=== PATIENT | female | born 1940 | race Caucasian/White ===

== ENCOUNTER → 2017-04-18 09:22 | Outpatient (CLI) | payer OTHER, SELFPAY ==
--- NOTE | 2017-04-18 09:26 | HPBD_ITS ---
STUDY: DUAL ENERGY X-RAY ABSORPTIOMETRY / DXA REASON FOR EXAM: Female, 76 years old. The patient is postmenopausal. Loss of height of 2 inches. TECHNIQUE: Bone Mineral Density (BMD) measurements of lumbar spine and bilateral hips were obtained. COMPARISON: Comparison is made with prior study dated April 14, 2015. FINDINGS: Lumbar Spine (L1-L4): g/cm2 (1.131) / T-score (-0.6) / Z-score (1.2) Findings are suggestive of normal bone density with a low fracture risk. Left Femur Total: g/cm2 (0.764) / T-score (-1.9) / Z-score (-0.2) Left Femoral Neck: g/cm2 (0.738) / T-score (-2.2) / Z-score (-0.2) Right Femur Total: g/cm2 (0.731) / T-score (-2.2) / Z-score (-0.4) Right Femoral Neck: g/cm2 (0.711) / T-score (-2.4) / Z-score (-0.4) The T-Scores on the most recent prior examination were: Lumbar Spine (L1-L4): There has been improvement of bone density since the previous examination. Left Femur Total: which represents an improvement of 0.5%. Right Femur Total: which represents an improvement of 3.0%. HPBD/Dexa Bone Density Study (HP) IMPRESSION: The patient is considered osteopenic as outlined below according to World Eduardo Organization (WHO) criteria with a moderate fracture risk. There has been improvement of bone density since the previous examination. Reference Information: The T-score is the number of standard deviations above or below the standard which is normal for young adults at their peak bone mineral density. The World Health Organization (WHO) interprets the T-scores as follows: Above -1 Normal bone density Between -1 and -2.5 Osteopenia Equal to / or below -2.5 Osteoporosis As a practical clinical guideline, osteopenia may be graded as follows: Mild -1 through -1.5 Moderate -1.6 through -2.0 Severe -2.1 through -2.4 The Z-score is the number of standard deviations above or below age-matched controls. A Z-score of less than -1.5 would be considered abnormal. References: 1. NIH Osteoporosis and Related Bone Diseases http://www.osteo.org 2. International Society for Clinical Densitometry http://www.iscd.org 3. National Osteoporosis Foundation http://www.nof.org Electronically Signed: Sean Mckeon MD at 10:59 EST Tel [phone], Service support ,
== END ==
PROVIDERS: Family Provider Family Medicine; PCP Family Medicine; Visit Provider Internal Medicine Endocrinology, Diabetes & Metabolism
DX: M81.0 Age-related osteoporosis without current pathological fracture (principal)
CPT/HCPCS: 77080

== ENCOUNTER → 2017-08-14 12:38 | Outpatient (CLI) | payer OTHER, SELFPAY ==
[2017-08-14 17:04] LABS: AST(SGOT) 19 U/L (15-37); Alanine Aminotransfer ALT/SGPT 22 U/L (13-56); Anion Gap 8 (5-15); BUN 17 mg/dL (7-18); BUN/Creat Ratio 22.7 RATIO (10-20); Calcium,Total 8.7 mg/dL (8.5-10.1); Chloride 105 mmol/L (98-107); Cholesterol 190 mg/dL (200); Creatinine, Serum 0.75 mg/dL (0.55-1.02); EST Glomerular Filtration Rate 80 mL/min (>60); Est Glom Filt Rate - Afr Amer 97 mL/min (>60); Glucose 81 mg/dL (74-106); High Density Lipoprotein 55 mg/dL; Potassium 3.8 mmol/L (3.5-5.1); Sodium Level 144 mmol/L (136-145); Triglycerides 144 mg/dL; Very Low Density Lipoprotein 29 mg/dL (5-40)
== END ==
PROVIDERS: Family Provider Family Medicine; PCP Family Medicine; Visit Provider Family Medicine
DX: I10 Essential (primary) hypertension (principal); E78.5 Hyperlipidemia, unspecified
CPT/HCPCS: 36415; 80048; 80061; 84450; 84460

== ENCOUNTER → 2017-08-21 11:17 | Outpatient (CLI) | payer OTHER, SELFPAY ==
[2017-08-21 11:59] LABS: Albumin, Serum 3.7 g/dL (3.2-5.0); BUN 13 mg/dL (7-18); BUN/Creat Ratio 16.7 RATIO (10-20); Chloride 102 mmol/L (98-107); Creatinine, Serum 0.78 mg/dL (0.55-1.02); EST Glomerular Filtration Rate 77 mL/min (>60); Est Glom Filt Rate - Afr Amer 93 mL/min (>60); Glucose 87 mg/dL (74-106); Magnesium 1.9 mg/dL (1.6-2.6); Phosphorus 3.4 mg/dL (2.5-4.9); Potassium 3.7 mmol/L (3.5-5.1); Sodium Level 141 mmol/L (136-145)
== END ==
PROVIDERS: Family Provider Family Medicine; PCP Family Medicine; Visit Provider Internal Medicine Endocrinology, Diabetes & Metabolism
DX: M81.0 Age-related osteoporosis without current pathological fracture (principal); E55.9 Vitamin D deficiency, unspecified; I10 Essential (primary) hypertension; Z79.899 Other long term (current) drug therapy
CPT/HCPCS: 36415; 80069; 83735

== ENCOUNTER → 2017-08-22 10:00 | Outpatient (CLI) | payer OTHER, SELFPAY ==
--- NOTE | 2017-08-22 15:50 | RAD_ITS ---
STUDY: X-RAY - LEFT FOOT CLINICAL: Female, 76 years old. Medial foot pain for 5 days after twisting foot. TECHNIQUE: 3 view(s) of the foot. COMPARISON: August 14, 2014 FINDINGS: There is a plantar calcaneal spur. Normal talus and tarsal bones. Has mild arthrosis of the visualized subtalar, talonavicular, calcaneocuboid, tarsal and tarsometatarsal articulations. There is deformity of the distal aspect of the first metatarsal suggesting prior bunionectomy and osteotomy. Normal second through fifth metatarsals. There is a mild hallux valgus deformity and degenerative changes of the first metatarsal phalangeal joint Normal tibial and fibular sesamoid bones. Normal interphalangeal joint of the great toe. Normal phalanges of the great toe. Normal second through fifth metatarsophalangeal joints. Normal interphalangeal joints and phalanges of the lesser toes. The soft tissue structures are unremarkable. RAD/Foot min 3 Views IMPRESSION: 1. No visualized acute fracture or dislocation. 2. Degenerative changes of the hindfoot. 3. Questionable surgical changes of the first metatarsal. 4. There is no major interval change when compared the prior study. Electronically Signed: Masood Craig DO at 16:24 EDT Tel [phone], Service support ,
== END ==
LOC: HPRAD 08-31 16:18
PROVIDERS: Family Provider Family Medicine; PCP Family Medicine; Visit Provider Physician Assistant Surgical
DX: S96.912A Strain of unspecified muscle and tendon at ankle and foot level, left foot, initial encounter (principal)
CPT/HCPCS: 73630

== ENCOUNTER → 2018-02-08 13:41 | Outpatient (CLI) | payer OTHER, SELFPAY ==
[2018-01-30 09:09] VITALS: BMI 28.1
--- NOTE | 2018-02-08 13:42 | RAD_ITS ---
STUDY: X-RAY - RIGHT KNEE REASON FOR EXAM: Female, 77 years old. Knee pain. TECHNIQUE: 4 view(s) of the knee. COMPARISON: January 15, 2016 FINDINGS: There is generalized osteopenia unchanged. Normal visualized distal femur. Normal visualized proximal tibia and fibula. Normal proximal tibiofibular articulation. There is stable moderate arthrosis of the medial and patellofemoral compartments. There is stable severe arthrosis of the lateral compartment. The soft tissue structures are unremarkable. RAD/Knee 4 or More Views IMPRESSION: Stable osteopenia and tricompartmental arthrosis. Electronically Signed: Oswaldo Hernandez MD at 17:18 EST , Service support ,
== END ==
PROVIDERS: Family Provider Family Medicine; PCP Family Medicine; Referring Provider Orthopaedic Surgery; Visit Provider Orthopaedic Surgery
DX: M25.561 Pain in right knee (principal)
CPT/HCPCS: 73564

== ENCOUNTER → 2018-02-17 08:34 | Outpatient (CLI) | payer OTHER, SELFPAY ==
[2018-02-09 12:05] VITALS: BMI 28.1
[2018-02-17 10:13] LABS: Albumin, Serum 3.2 g/dL (3.2-5.0); BUN 16 mg/dL (7-18); BUN/Creat Ratio 20.7 RATIO (10-20); Calcium,Total 8.5 mg/dL (8.5-10.1); Chloride 104 mmol/L (98-107); Creatinine, Serum 0.77 mg/dL (0.55-1.02); EST Glomerular Filtration Rate 77 mL/min (>60); Est Glom Filt Rate - Afr Amer 93 mL/min (>60); Glucose 88 mg/dL (74-106); Phosphorus 3.1 mg/dL (2.5-4.9); Potassium 3.6 mmol/L (3.5-5.1); Sodium Level 142 mmol/L (136-145)
== END ==
PROVIDERS: Family Provider Family Medicine; PCP Family Medicine; Referring Provider Internal Medicine Endocrinology, Diabetes & Metabolism; Visit Provider Internal Medicine Endocrinology, Diabetes & Metabolism
DX: M81.0 Age-related osteoporosis without current pathological fracture (principal); E55.9 Vitamin D deficiency, unspecified; I10 Essential (primary) hypertension; Z79.899 Other long term (current) drug therapy
CPT/HCPCS: 36415; 80069

== ENCOUNTER 2018-02-21 06:30 | Day surgery (SDC) | payer OTHER, SELFPAY ==
[2018-01-30 09:09] VITALS: BMI 28.1
[2018-02-09 12:05] VITALS: BMI 28.1
[2018-02-21] VITALS (12 sets, daily range): BP systolic 91–138; BP diastolic 49–87; PULSE 62–81; RESP 16–18; TEMP 36.4–36.9; O2SAT 92–100; BMI 27.0
--- NOTE | 2018-02-21 07:30 | COLBX_PTH ---
PATIENT: JERMAIN JENKINS LOC: EN U#:[id number] AGE/SX: 77/F ROOM: RE02/21/[address]: Dr. Bro Patiño MD : 1940 BED: DIS: 02/21/2018 SPEC #: [id number] RECD: 02/21/18 10:34 STATUS: KEENAN CAMMIE #: [id number] TAN: 02/21/18 07:[address]: Bro Patiño DEPT: SURGICAL PATHOLOGY RECD BY: Richie Ruggiero ENTERED: 02/21/18 10:34 SP TYPE: COLON BX OTHR DR: Dr. Blanca Cruz MD Tissues: COLON BIOPSY Procedures: Surgery Specimen Level IV HEADER OPERATION: Colonoscopy PRE-OP DIAGNOSIS: Screening TISSUE SUBMITTED: Random colonic biopsy MICROSCOPIC DIAGNOSIS Colon, random biopsy: Fragments of colonic mucosa, no pathologic diagnosis. SJ:adriana 02/22/18 MICROSCOPIC DESCRIPTION Slides are reviewed. GROSS DESCRIPTION Received in fixative is one container labeled with the patient's name and designated random colon biopsy. The specimen consists of multiple irregular fragments of light crook soft tissue that in aggregate measure 1 x 0.5 x 0.1 cm. The specimen is totally submitted in one cassette. / SJ:adriana 02/21/18 TC:4 CPT: 89239
--- NOTE | 2018-02-21 08:02 | OP.ENDO_ITS ---
Patient Name: Mary Liu Procedure Date: 02/21/2018 7:26 AM Date of : 1940 Age: 77 Procedure: Colonoscopy Indications: Screening for colorectal malignant neoplasm Providers: Bro Patiño MD Referring MD: Bro Patiño MD Medicines: See the Anesthesia note for documentation of the administered medications Patient Profile: This is a 77 year old female. Refer to note in patient chart for documentation of history and physical. Last Colonoscopy: more than 10 years ago. Complications: No immediate complications. Procedure: Pre-Anesthesia Assessment: - Prior to the procedure, a History and Physical was performed, and patient medications and allergies were reviewed. The patient's tolerance of previous anesthesia was also reviewed. The risks and benefits of the procedure and the sedation options and risks were discussed with the patient. All questions were answered, and informed consent was obtained. Prior Anticoagulants: The patient has taken no previous anticoagulant or antiplatelet agents. ASA Grade Assessment: II - A patient with mild systemic disease. After reviewing the risks and benefits, the patient was deemed in satisfactory condition to undergo the procedure. After I obtained informed consent, the scope was passed under direct vision. Throughout the procedure, the patient's blood pressure, pulse, and oxygen saturations were monitored continuously. The adult colonoscope was introduced through the anus and advanced to the cecum, identified by appendiceal orifice and ileocecal valve. The colonoscopy was performed with moderate difficulty due to a tortuous colon. The patient tolerated the procedure well. The quality of the bowel preparation was good. Scope In: 7:39:13 AM Scope Withdrawal Time 0 hours 6 minutes 34 seconds Scope Out: 7:59:07 AM Total Procedure Duration Time 0 hours 19 minutes 54 seconds Findings: A few small-mouthed diverticula were found in the sigmoid colon and descending colon. Non-bleeding internal hemorrhoids were found during retroflexion. The hemorrhoids were mild and small. The exam was otherwise without abnormality. Biopsies for histology were taken with a cold forceps from the entire colon for evaluation of microscopic colitis. Impression: - Diverticulosis in the sigmoid colon and in the descending colon. - Non-bleeding internal hemorrhoids. - The examination was otherwise normal. - Biopsies were taken with a cold forceps from the entire colon for evaluation of microscopic colitis. Recommendation: - Discharge patient to home. - Resume previous diet. - Continue present medications. - Await pathology results. - Repeat colonoscopy in 10 years for screening purposes. - Return to my office in 1 week. Procedure Code(s): --- Professional --- 99570, Colonoscopy, flexible; with biopsy, single or multiple Diagnosis Code(s): --- Professional --- Z12.11, Encounter for screening for malignant neoplasm of colon K64.8, Other hemorrhoids K57.30, Diverticulosis of large intestine without perforation or abscess without bleeding CPT copyright 2017 [employer]. All rights reserved. The codes documented in this report are preliminary and upon senior cyber intelligence analyst review may be revised to meet current compliance requirements. MD Bro Choudhary MD 02/21/2018 8:02:26 AM This report has been signed electronically. Number of Addenda: 0 Note Initiated On: 02/21/2018 7:26 AM
--- NOTE | 2018-02-21 08:20 | SUR.PHASEI ---
FREQUENT COUGH, LUNGS CLEAR, DIFFICULTY MAINTAINING SPO2 >92% ON ROOM AIR. VERIFIED PLACEMENT OF SPO2 MONITOR. O2 PLACED AT 2 L/MIN, ENCOURAGE C & DB. WILL UPDATE ANESTHESIA.
--- NOTE | 2018-02-21 08:44 | SUR.PHASEI ---
AT 0837, DR OBRIEN NOTIFIED CONTINUES MOIST-SOUNDING COUGH, LUNGS COURSE ON LEFT POSTERIORLY, CLEAR ANTERIOR. O2 REMAINS AT 2-3 L/MIN. DENIES CHEST PAIN, DIFFICULTY BREATHING, OR SHORT OF BREATH. et CO2 IMPROVING, NOW AT 25. DR OBRIEN WILL COME TO PACU TO EVALUATE.
--- NOTE | 2018-02-27 08:57 | PCM.HP.STD ---
Problem List (1) Screening for colorectal cancer Status: Acute History of Present Illness Date of Admission: 02/21/18 The patient is a 77 year old F who presents for screening colonoscopy. Past Medical History Past Medical History (Chronic Problems): Chronic Problems (Last Reviewed 01/30/18 @ 12:37 by Bro Patiño MD) Hyperlipidemia (Chronic) SVT (supraventricular tachycardia) (Chronic) Essential hypertension (Chronic) Medical History: Medical History (Last Reviewed 02/27/18 @ 08:58 by Bro Patiño MD) Degenerative arthritis of left foot (Acute) M19.072 Strain of foot, left (Acute) S96.912A Hyperlipidemia (Chronic) E78.5 SVT (supraventricular tachycardia) (Chronic) I47.1 Essential hypertension (Chronic) I10 Asthma J45.909 Thyroid disease E07.9 Allergies Iodinated Contrast- Oral and IV Dye [Iodinated Contrast Media - IV Dye] Allergy (Verified 02/19/18 11:27) Anaphylaxis TONGUE SWELLS Penicillins [PCN] Allergy (Verified 02/19/18 11:27) Hives AND TONGUE SWELLS Home Medications: Ambulatory Orders Medication Instructions Recorded Atorvastatin Calcium [Lipitor] 10 mg PO QHS 01/31/15 Sertraline HCl [Zoloft] 150 mg PO DAILY 01/31/15 Calcium Carbonate/Vitamin D3 600 mg PO TID 07/28/15 [Calcium 600-Vit D3 400 Caplet] Cholecalciferol (VIT D3) [Vitamin 2,000 unit PO DAILY 07/28/15 D3] Multivitamins,Ther W-Minerals 1 tab PO DAILY 07/28/15 [Multivitamin With Minerals] Hydrochlorothiazide 12.5 mg PO DAILY 12/22/16 metoprolol succinate ER 100 mg 100 mg PO DAILY #90 tab 06/12/17 tablet,extended release 24 hr flecainide 100 mg tablet 100 mg PO Q12H #180 tab 06/27/17 lisinopril 10 mg tablet 10 mg PO DAILY #90 tab 06/27/17 magnesium 250 mg tablet 400 mg PO DAILY tab 01/30/18 potassium chloride ER 10 mEq 20 meq PO DAILY tab 01/30/18 tablet,extended release(part/cryst) Surgical History: Surgical History (Last Reviewed 02/27/18 @ 08:58 by Bro Patiño MD) Hx of cholecystectomy (Resolved) Z90.49 Hx of cataract surgery (Resolved) Z98.49 Smoking Status: Never smoker Tobacco Use: Non-smoker Review of Systems Cardiovascular: Denies: Chest Pain, Chest Pressure, Chest Tightness, Palpitations Respiratory: Denies: Cough, Hemoptysis, Shortness of breath at rest, Shortness of breath upon exertion, Wheezing Gastrointestinal: Denies: Abdominal Pain, Constipation, Diarrhea, Hematemesis, Nausea, Melena, Vomiting VTE Information - Inpt Only VTE Present on Admission: No VTE Mechan Device Prophylaxis: None VTE Pharm Prophylaxis ordered?: No Reason prophylaxis not ordered:: Treatment Not Indicated - Physical Exam Lungs: Clear to auscultation Cardiovascular: Regular rate, Regular Rhythm, No murmurs Abdomen: Bowel Sounds Present, Soft, Non Tender, Non-Distended Vital Signs Temp Pulse Resp BP Pulse Ox 97.6 F L 63 16 116/49 L 93 02/21/18 09:22 02/21/18 09:22 02/21/18 09:22 02/21/18 09:22 02/21/18 09:22 Oxygen Flow Rate (L/min) 1 Oxygen Delivery Method Room Air Weight: 145 lb 8.081 oz Body Mass Index (BMI) 27.0 Assessment/Plan All Active Problems (Last Reviewed 01/30/18 @ 12:37 by Bro Patiño MD) Screening for colorectal cancer (Acute) Degenerative arthritis of left foot (Acute) Strain of foot, left (Acute) Hx of cholecystectomy (Resolved) Hx of cataract surgery (Resolved) My plan is to perform a colonoscopy on her. Risk benefits have been reviewed all questions asked of been answered and the patient agrees to proceed.
== END 2018-02-21 09:54 | disposition home or self-care (01) ==
LOC: EN 06:31 → AC 06:32
PROVIDERS: Family Provider Family Medicine; PCP Family Medicine; Referring Provider Family Medicine; Visit Provider Surgery
PROC: 0DJD8ZZ Inspection of Lower Intestinal Tract, Via Natural or Artificial Opening Endoscopic (ICD-10-PCS; CPT 45378; principal; 2018-02-21 07:25)
DX: Z12.11 Encounter for screening for malignant neoplasm of colon (principal); K57.30 Diverticulosis of large intestine without perforation or abscess without bleeding; K64.8 Other hemorrhoids; E78.00 Pure hypercholesterolemia, unspecified; I47.1 Supraventricular tachycardia; I10 Essential (primary) hypertension; M19.072 Primary osteoarthritis, left ankle and foot; J45.909 Unspecified asthma, uncomplicated; F32.9 Major depressive disorder, single episode, unspecified; Z78.0 Asymptomatic menopausal state; Z90.49 Acquired absence of other specified parts of digestive tract; Z79.899 Other long term (current) drug therapy
CPT/HCPCS: 45380; 88305; J7120; J1610; J2405

== ENCOUNTER → 2018-04-25 08:07 | Outpatient (CLI) | payer OTHER, SELFPAY ==
[2018-02-21 06:50] VITALS: BMI 27.0
[2018-03-29 10:48] VITALS: BMI 27.8
--- NOTE | 2018-04-25 08:11 | BI_ITS ---
MAMMOGRAPHY - BILATERAL SCREENING REASON FOR EXAM: Female, 77 years old. Routine annual screening examination. PERTINENT HISTORY: Remote left excisional breast biopsy. TECHNIQUE: Digital bilateral breast mikie (3D mammographic acquisition) in the CC and MLO projections. 2-D mediolateral oblique (MLO) and craniocaudad (CC) views of both breasts were obtained. CAD: Full Field Digital Mammography with Computer Added Detection was performed. COMPARISON: Comparison is made with prior study dated October 31, 2016 and September 11, 2015. FINDINGS: Breast Composition: There are scattered areas of fibroglandular density. There are no dominant masses or suspicious calcifications. Stable small bilateral axillary lymph nodes. No other significant abnormalities are identified. There has been no significant change since the prior study. BI/SCREEN MAMM (CAD) W/MIKIE BILAT IMPRESSION: Stable bilateral screening mammogram. Yearly follow-up mammogram recommended. (A) ASSESSMENT CATEGORY: BIRADS Category 2: Benign. A letter regarding these results will be sent to the patient by the facility within 30 days. Approximately 10% of breast cancers are not detected by mammography. A normal mammogram should not delay biopsy of a clinically suspicious abnormality. [id number] Electronically Signed: Sean Mckeon, at 10:37 EDT , Service support ,
--- NOTE | 2018-04-25 08:11 | BI_ITS ---
MAMMOGRAPHY - BILATERAL SCREENING REASON FOR EXAM: Female, 77 years old. Routine annual screening examination. PERTINENT HISTORY: Remote left excisional breast biopsy. TECHNIQUE: Digital bilateral breast markel (3D mammographic acquisition) in the CC and MLO projections. 2-D mediolateral oblique (MLO) and craniocaudad (CC) views of both breasts were obtained. CAD: Full Field Digital Mammography with Computer Added Detection was performed. COMPARISON: Comparison is made with prior study dated October 31, 2016 and September 11, 2015. FINDINGS: Breast Composition: There are scattered areas of fibroglandular density. There are no dominant masses or suspicious calcifications. Stable small bilateral axillary lymph nodes. No other significant abnormalities are identified. There has been no significant change since the prior study. BI/Bilat Brst Screen Markel Add-On IMPRESSION: Stable bilateral screening mammogram. Yearly follow-up mammogram recommended. (A) ASSESSMENT CATEGORY: BIRADS Category 2: Benign. A letter regarding these results will be sent to the patient by the facility within 30 days. Approximately 10% of breast cancers are not detected by mammography. A normal mammogram should not delay biopsy of a clinically suspicious abnormality. [id number] Electronically Signed: Sean Mckeon, at 10:37 EDT , Service support ,
== END ==
PROVIDERS: Family Provider Family Medicine; PCP Family Medicine; Referring Provider Family Medicine; Visit Provider Family Medicine
DX: Z12.31 Encounter for screening mammogram for malignant neoplasm of breast (principal)
CPT/HCPCS: 77063; 77067

== ENCOUNTER 2018-05-16 09:27 | Emergency (ER) | payer OTHER, SELFPAY ==
[2018-03-29 10:48] VITALS: BMI 27.8
[2018-05-16 09:28] VITALS: BP 152/93; PULSE 67; RESP 17; TEMP 36.8; O2SAT 98; BMI 28.0
--- NOTE | 2018-05-16 09:48 | ED.VISSUMM ---
- ER Visit Summary Date of Service: 05/16/18 Chief Complaint: Fall History of Present Illness: The patient is a 77 F who fell last night. This was a mechanical fall down 3 steps. She landed on her right side and complains of right shoulder, right elbow, and right wrist pain. She also has a bruise to her right hip, but she is not having issues walking or bearing weight. She did not hit her head or neck. Did not lose consciousness. She is not on blood thinners. No other complaints. Physical Examination: Afebrile and vital signs unremarkable. Head and neck are atraumatic. Right shoulder diffusely tender to palpation. Right elbow tender to palpation over the medial epicondyle. Pain with pronation and supination. Right wrist diffusely tender to palpation. Hand unremarkable. Neurovascular intact distally. Skin intact. Test Results: X-rays of the right shoulder, right elbow, and right wrist are pending. Emergency Department Course and Treatment: Patient treated with Tylenol while awaiting imaging results. X-rays were negative for fracture. They showed some soft tissue swelling but nothing else acute. Just chronic degenerative changes. Patient will be treated as an outpatient with rest, ice, elevation. Velcro wrist splint. Outpatient follow-up for reevaluation. Treatment Plan: As above Disposition: Discharge Impression: 1. Right shoulder contusion 2. Right elbow contusion 3. Right wrist sprain This note was generated with [employer] software. It may contain incorrect words, spelling, and punctuation that were not noted in review of the chart prior to signing ED Disposition - Plan for ED Patient: Referrals: Blanca Cruz MD [Primary Care Provider] -
[2018-05-16 09:54] VITALS: O2SAT 97
--- NOTE | 2018-05-16 09:55 | RAD_ITS ---
STUDY: X-RAY - RIGHT WRIST REASON FOR EXAM: Female, 77 years old. Pain following a fall. TECHNIQUE: 3 view(s) of the wrist were obtained. COMPARISON: None. FINDINGS: Normal visualized distal radius and ulna. Normal radiocarpal articulation. Normal distal radioulnar articulation. Normal carpal bones. Normal carpal articulations. Normal carpometacarpal articulation of the thumb. Normal second through fifth carpometacarpal articulations. Normal visualized metacarpal bones. Soft tissue swelling. RAD/Wrist min 3 Views IMPRESSION: Soft tissue swelling. Electronically Signed: Sean Mckeon, at 10:36 EDT , Service support ,
--- NOTE | 2018-05-16 10:03 | RAD_ITS ---
STUDY: X-RAY - RIGHT ELBOW REASON FOR EXAM: Female, 77 years old. Pain following a fall. TECHNIQUE: 3 view(s) of the elbow. COMPARISON: None. FINDINGS: Normal visualized humerus, radius and ulna. Normal radiocapitellar and ulnotrochlear articulations. The soft tissue structures are unremarkable. RAD/Elbow min 3 Views IMPRESSION: Normal x-ray examination of the elbow. Electronically Signed: Sean Mckeon, at 10:36 EDT , Service support ,
--- NOTE | 2018-05-16 10:13 | RAD_ITS ---
STUDY: X-RAY - RIGHT SHOULDER REASON FOR EXAM: Female, 77 years old. Pain following a fall. TECHNIQUE: 4 view(s) of the shoulder. COMPARISON: None. FINDINGS: There is moderate degenerative arthrosis of the glenohumeral articulation. There is degenerative arthrosis of the acromioclavicular joint without inferior osseous spur formation. Normal acromion. Normal humeral head and visualized proximal humerus. The soft tissue structures are unremarkable. Normal visualized pulmonary apex. RAD/Shoulder min 2 Views IMPRESSION: Degenerative changes of the acromioclavicular joint and glenohumeral joint. Electronically Signed: Sean Mckeon, at 11:01 EDT , Service support ,
[2018-05-16] MEDS: Acetaminophen 500 MG Tablet 1000 MG PO (10:32)
--- NOTE | 2018-05-16 11:05 | ED.DEP ---
ED Disposition - Plan for ED Patient: Instructions: ED Mechanical Fall Referrals: Blanca Cruz MD [Primary Care Provider] -
[2018-05-16 11:19] VITALS: BP 114/67; PULSE 59; RESP 16; O2SAT 96
== END 2018-05-16 11:20 | disposition home or self-care (01) ==
LOC: ED 09:50
PROVIDERS: Emergency Provider Emergency Medicine; Family Provider Family Medicine; PCP Family Medicine
DX: S40.011A Contusion of right shoulder, initial encounter (principal); S50.01XA Contusion of right elbow, initial encounter; S63.501A Unspecified sprain of right wrist, initial encounter; W10.9XXA Fall (on) (from) unspecified stairs and steps, initial encounter; Y93.9 Activity, unspecified; Y92.9 Unspecified place or not applicable; I10 Essential (primary) hypertension; E07.9 Disorder of thyroid, unspecified; Z79.899 Other long term (current) drug therapy
CPT/HCPCS: 73030; 73080; 73110; 99283

== ENCOUNTER → 2018-05-21 09:01 | Outpatient (CLI) | payer OTHER, SELFPAY ==
[2018-05-21 08:55] VITALS: BMI 28.0
--- NOTE | 2018-05-21 09:02 | RAD_ITS ---
HISTORY: Pain. COMPARISON: 05/16/18 radiographs. FINDINGS: XR Shoulder 1 View: Right SOFT TISSUES: No acute findings. No radiopaque foreign body. BONES/JOINTS: No acute fracture or subluxation. Normal alignment. Moderate degenerative changes glenohumeral and acromioclavicular joints similar to prior. No destructive changes observed. RAD/Shoulder One View IMPRESSION: Degenerative changes. No acute fracture or dislocation. at 0454 Reported and signed by: Marcellus Bolaños MD Electronically Signed: Marcellus Bolaños, at 4:53 EDT Tel , Service support ,
--- NOTE | 2018-05-21 09:02 | RAD_ITS ---
HISTORY: PPainRAD-EXT/JT COMPARISON: None FINDINGS: XR Hand Min 3 Views: Right SOFT TISSUES: No acute findings. No radiopaque foreign body. BONES/JOINTS: No acute fracture or subluxation. Normal alignment. Degenerative changes are noted. No destructive changes observed. RAD/Hand Min 3 Views IMPRESSION: Degenerative changes. No acute fracture or dislocation. at 0112 Reported and signed by: Marcellus Bolaños MD Electronically Signed: Marcellus Bolaños, at 4:14 EDT Tel , Service support ,
== END ==
PROVIDERS: Family Provider Family Medicine; PCP Family Medicine; Referring Provider Orthopaedic Surgery; Visit Provider Orthopaedic Surgery
DX: M79.641 Pain in right hand (principal); M25.511 Pain in right shoulder
CPT/HCPCS: 73020; 73130

== ENCOUNTER → 2018-05-22 | Outpatient (CLI) | payer OTHER, SELFPAY ==
[2018-03-29 10:48] VITALS: BMI 27.8
[2018-05-21 08:55] VITALS: BMI 28.0
--- NOTE | 2018-05-22 09:27 | STE_ITS ---
Reason For Study: ATRIAL FIB/FLUTTER Stress Results Protocol: Stress Echocardiogram Maximum Predicted HR: 144 bpm Target HR: 122 bpm % Maximum Predicted HR: 85 % DurationHeart Rate Stage (mm:ss) (bpm) BP Comment BASELINE 66 158/82PT DID NOT TAKE MEDS MARGARET PROTOCOL- STAGE 1 3:00 110 146/80 MARGARET PROTOCOL- STAGE 2 1:32 123 / SOB, NO CP RECOVERY 70 150/80 Stress Duration: 4:32 mm:ss Maximum Stress HR: 123 bpm Baseline Echocardiogram Findings Stress Echo Wall motion Data Resting WM Intermediate WM Stress WM Resting Wall Motion Wall Motion Stress No regional wall motion No regional wall motion abnormalities noted. abnormalities noted. Ejection Fraction 55 %. Ejection Fraction 65 %. Interpretation Summary Exercise stress echo. Stress protocol: Resting EKG demonstrates normal sinus rhythm with a rate of 69 beats minute normal intervals are noted resting blood pressure 158/82 mmHg. The patient exercised according to the regular Margaret protocol for total duration of 4 minutes and 32 seconds. The maximum heart rate attained was 123 bpm which was 85% of maximum predicted heart rate the maximum workload was 7 metabolic equivalents. At rest there were no ST or T wave changes noted suggest ischemia peak exercise upsloping ST changes were noted with no meet the criteria for ischemia but then became horizontal of approximately 0.80-[address] depression noted in leads II, III and aVF and were persistent into recovery. The patient exhibited shortness of breath. The above findings appear to be suggestive but not diagnostic of ischemia at the resting blood pressure 158/82 mmHg with a peak blood pressure 168/90 mmHg. No obvious clinical angina was noted. Stress echocardiographic images. The resting echocardiographic images demonstrated preserved ejection fraction of 55%. The peak stress images demonstrate an ejection fraction of 65%. The inferior wall cannot be very well visualized and thus ischemia cannot be completely excluded. Conclusion Exercise stress echocardiogram with EKG criteria suggestive of ischemia Normal resting echocardiographic images with indeterminate stress echocardiographic images Ordering Physician: Chava Rodriguez Referring Physician: Chava Rodriguez Performed By:
== END | disposition home or self-care (01) ==
LOC: CVS 09:26
PROVIDERS: Family Provider Family Medicine; PCP Family Medicine; Referring Provider Internal Medicine Cardiovascular Disease; Visit Provider Internal Medicine Cardiovascular Disease
DX: I47.1 Supraventricular tachycardia (principal)
CPT/HCPCS: 93017; 93350

== ENCOUNTER 2018-06-05 00:40 | Emergency (ER) | payer OTHER, SELFPAY ==
[2018-05-21 08:55] VITALS: BMI 28.0
[2018-06-05 00:40] VITALS: BP 177/79; PULSE 65; RESP 16; TEMP 36.5; O2SAT 97; BMI 26.6
--- NOTE | 2018-06-05 01:17 | RAD_ITS ---
STUDY: X-RAY - RIGHT SHOULDER REASON FOR EXAM: Female, 77 years old. Pain TECHNIQUE: 4 view(s) of the shoulder. COMPARISON: None. FINDINGS: Normal glenohumeral articulation. There is degenerative arthrosis of the acromioclavicular joint without inferior osseous spur formation. Normal acromion. Normal humeral head and visualized proximal humerus. The soft tissue structures are unremarkable. Normal visualized pulmonary apex. RAD/Shoulder min 2 Views IMPRESSION: There are NO fractures or malalignments. There is mild degenerative arthrosis of the glenohumeral joint. Electronically Signed: Lonny Bales MD at 2:30 EDT , Service support ,
--- NOTE | 2018-06-05 01:33 | ED.VISSUMM ---
- ER Visit Summary Date of Service: 06/05/18 Chief Complaint: Right shoulder pain History of Present Illness: The patient is a 77 F presenting with right shoulder pain. She states this occurred on Monday. She was walking up a ramp at her new home and she tripped. She fell into a wall hitting her right shoulder. She did not hit her head or lose consciousness. She complains of persistent pain in her right shoulder. She is able ambulate. She denies other injuries. Physical Examination: Vitals are stable. Patient is afebrile. Alert no acute distress. HEENT exam is unremarkable. Neck is nontender Lungs are clear and equal bilaterally. Heart is regular rate and rhythm. Extremities mild diffuse tenderness right shoulder with active full range of motion, neurovascularly intact distally Skin is warm and dry. No focal neurologic deficit. Remainder of exam is unremarkable. Emergency Department Course and Treatment: Right shoulder x-ray shows there are NO fractures or malalignments. There is mild degenerative arthrosis of the glenohumeral joint. She is advised to take Tylenol for pain. Advised to follow-up with her primary care physician. Advised return to ED for worsening complaints. Disposition: Discharge home Impression: Right shoulder contusion This note was generated with HDmessaging dictation software. It may contain incorrect words, spelling, and punctuation that were not noted in review of the chart prior to signing ED Disposition - Plan for ED Patient: Referrals: Blanca Cruz MD [Primary Care Provider] -
--- NOTE | 2018-06-05 02:36 | ED.DEP ---
ED Disposition - Plan for ED Patient: Instructions: ED Sprain Shoulder Referrals: Blanca Cruz MD [Primary Care Provider] - Dora Hemphill DO [STAFF PHYSICIAN] -
[2018-06-05 02:39] VITALS: BP 179/62; PULSE 65; RESP 16; O2SAT 94
[2018-06-05] MEDS: Acetaminophen 325 MG Tablet 650 MG PO (02:39)
== END 2018-06-05 02:42 | disposition home or self-care (01) ==
LOC: ED 01:25
PROVIDERS: Emergency Provider Emergency Medicine; Family Provider Family Medicine; PCP Family Medicine
DX: S40.011A Contusion of right shoulder, initial encounter (principal); M19.011 Primary osteoarthritis, right shoulder; W01.0XXA Fall on same level from slipping, tripping and stumbling without subsequent striking against object, initial encounter; Y93.01 Activity, walking, marching and hiking; Y92.9 Unspecified place or not applicable; I10 Essential (primary) hypertension; E78.00 Pure hypercholesterolemia, unspecified; I47.1 Supraventricular tachycardia; Z79.82 Long term (current) use of aspirin; Z79.899 Other long term (current) drug therapy
CPT/HCPCS: 73030; 99283

== ENCOUNTER → 2018-06-20 | Outpatient (CLI) | payer OTHER, SELFPAY ==
[2018-06-06 09:47] VITALS: BMI 27.4
[2018-06-20 12:39] LABS: Basophil# 0.04 X10^3/uL; Basophil% 0.6 % (0-1); Eosinophil# 0.18 X10^3/uL; Eosinophils% 2.9 % (0-5); Hematocrit 36.9 % (37-47); Hemoglobin 11.7 g/dl (12.0-15.0); Immature Platelet Fraction 2.1 % (1.0-7.9); Lymphocyte % 22.4 % (19-41); Mean Corp Hgb Conc 31.7 g/gl (32-36); Mean Corpuscular Volume 85.2 fL (81-99); Mean Platelet Vol. 10.5 fl (6.2-12.0); Monocyte# 0.61 X10^3/uL; Monocyte% 9.8 % (0-10); Neutrophil # 4.01 X10^3/uL (2.7-7.7); Neutrophil % 64.1 % (47-70); Platelet Count 283 K/mm3 (150-450); RBC Distribution Width CV 15.4 % (11.6-14.6); RBC Distribution Width SD 47.7 fl (35.1-43.9); RET-HE 32.1 pg (30-35); Red Blood Count 4.33 M/mm3 (4.2-5.4); Reticulocyte Count 1.85 % (0.5-1.5); White Blood Count 6.3 K/mm3 (4.4-11.0)
[2018-06-20 12:47] LABS: POSITIVE COUNT NO; POSITIVE DIFFERENTIAL NO; POSITIVE MORPHOLOGY NO
[2018-06-20 12:59] LABS: Vitamin B12 757 pg/mL (211-911)
[2018-06-20 13:51] LABS: Anion Gap 4 (5-15); BUN 18 mg/dL (7-18); BUN/Creat Ratio 23.6 RATIO (10-20); Calcium,Total 8.9 mg/dL (8.5-10.1); Chloride 103 mmol/L (98-107); Creatinine, Serum 0.76 mg/dL (0.55-1.02); EST Glomerular Filtration Rate 78 mL/min (>60); Est Glom Filt Rate - Afr Amer 94 mL/min (>60); Glucose 90 mg/dL (74-106); Iron 39 ug/dL (50-170); Sodium Level 136 mmol/L (136-145)
== END | disposition home or self-care (01) ==
LOC: MFPLAB 09:47
PROVIDERS: Family Provider Family Medicine; PCP Family Medicine; Referring Provider Family Medicine; Visit Provider Family Medicine
DX: D64.9 Anemia, unspecified (principal); I10 Essential (primary) hypertension; R19.7 Diarrhea, unspecified
CPT/HCPCS: 36415; 80048; 82607; 82746; 83540; 85025; 85045

== ENCOUNTER 2018-06-25 08:43 | Day surgery (SDC) | payer OTHER, SELFPAY ==
[2018-05-21 08:55] VITALS: BMI 28.0
[2018-06-06 09:47] VITALS: BMI 27.4
--- NOTE | 2018-06-06 14:40 | HP_ITS ---
ADDENDUM by KYRA Lamas on 06/06/18 at 1440 Addendum entered and electronically signed by STACI Esqueda 06/06/18 14:40: HPI Surgical H&P: Yes Assessment & Plan 1. Abnormal stress echo R94.39 Plan - STACI Esqueda As noted above, her most recent stress echocardiogram on 06/01/2018 was considered to be abnormal. She will proceed with a left heart catheterization for further assessment. Patient results further recommendation will be made. She does have a allergy to iodine and will receive Benadryl and Solu-Medrol morning of heart catheterization. 2. SVT (supraventricular tachycardia) I47.1 Plan - STACI Esqueda Her EKG today in office showed sinus rhythm with ventricular ectopy. Her heart rate was noted to be 64 bpm and a QTC of 407. At this time, she will continue current medications we will continue to monitor. 3. Postoperative atrial fibrillation I97.89; I48.91 Plan - STACI Esqueda She appears to maintain regular rhythm. She will continue with current rate limiting medications. We will continue to monitor. Orders Orders: 12 Lead [place] [facility] 4. Essential (primary) hypertension I10 Plan - STACI Esqueda Patient's blood pressure is well-controlled. We will continue to monitor. We will not make any medication regimen changes. She does not knowledge a recent mechanical fall and was seen in the emergency department yesterday and noted to have elevated blood pressure. Her elevated blood pressure at this time is been attributed to discomfort at that time. 5. Pure hypercholesterolemia E78.00 Plan - STACI Esqueda She will continue with current low-dose statin medication. Plan Detail Other Medications New: clopidogrel 75 mg PO DAILY 30 tabs 11RF Additional Comments - STACI Esqueda Discussed the above patient with Dr. Rodriguez, he agrees with the plan of care. Thank you for allowing us to participate in the patients plan of care, if you have any questions please do not hesitate to call. This note was generated using a voice recognition system and there may be incorrect words, spelling or punctuation that were not noted when reviewing the office note prior to saving. 06/06/18 1440 <Electronically signed by Lamin SMALL> Date Lamin Lamas cc: Blanca Cruz MD ~* [facility] HPI Details: JERMAIN JENKINS, is a 77 F who presents to the office today for a follow- up visit. She has a history of hypertension, hyperlipidemia, and paroxysmal atrial tachycardia. She also has a history of parathyroid disease and had a parathyroidectomy. She recently underwent a colonoscopy developed brief episode of atrial fibrillation and went back into sinus rhythm. After last office appointment on 03/29/2018 she underwent a stress test to further evaluate underlying ischemia. Her stress echocardiogram was positive by EKG criteria. She denies chest, arm, jaw, or neck discomfort. Her exercise tolerance is stable. She denies symptoms of CHF, palpitations, lightheadedness, dizziness, near syncope, or syncopal episodes. She denies edema or claudication issues. She denies orthopnea, PND, fever, chills, blood in urine, blood in stool, myalgia, or unexplainable fatigue. Intake Vital Signs 06/06/18 Height 5 ft 2 in 06/06/18 Weight: 150 lb 06/06/18 Body Mass Index (BMI) 27.4 06/06/18 Blood Pressure 131/68 H 06/06/18 Blood Pressure Location Lt brachial 06/06/18 Blood Pressure Position Sitting 06/06/18 Respiratory Rate 18 06/06/18 Pulse Rate 64 06/06/18 Pulse Source Monitor 06/06/18 Pulse Ox 98 Intake Visit Reasons: update H&P cath 06/25 Material Spreader Required: No Accompanied by: none Is patient in pain?: No Allergies Iodinated Contrast- Oral and IV Dye [Iodinated Contrast Media - IV Dye] Allergy (Verified 06/05/18 00:42) Anaphylaxis Penicillins [PCN] Allergy (Verified 06/05/18 00:42) Hives Medications Atorvastatin Calcium [Lipitor] 10 mg PO QHS 01/31/15 [History Confirmed 03/29/18] Sertraline HCl [Zoloft] 150 mg PO DAILY 01/31/15 [History Confirmed 03/29/18] Calcium Carbonate/Vitamin D3 [Calcium 600-Vit D3 400 Caplet] 600 mg PO TID 07/28/15 [History Confirmed 03/29/18] Cholecalciferol (VIT D3) [Vitamin D3] 2,000 unit PO DAILY 07/28/15 [History Confirmed 03/29/18] Multivitamins,Ther W-Minerals [Multivitamin With Minerals] 1 tab PO DAILY 07/28/15 [History Confirmed 03/29/18] Hydrochlorothiazide 12.5 mg PO DAILY 12/22/16 [History Confirmed 03/29/18] metoprolol succinate ER 100 mg tablet,extended release 24 hr 100 mg PO DAILY #90 tab 06/12/17 [Rx Confirmed 03/29/18] flecainide 100 mg tablet 100 mg PO Q12H #180 tab 06/27/17 [Rx Confirmed 03/29/18] lisinopril 10 mg tablet 10 mg PO DAILY #90 tab 06/27/17 [Rx Confirmed 03/29/18] magnesium 250 mg tablet 400 mg PO DAILY tab 01/30/18 [History Confirmed 03/29/18] potassium chloride ER 10 mEq tablet,extended release(part/cryst) 20 meq PO DAILY tab 01/30/18 [History Confirmed 03/29/18] meloxicam 15 mg tablet 15 mg PO DAILY #30 tab 05/21/18 [Rx Confirmed 05/21/18] aspirin 81 mg tablet,delayed release 81 mg PO DAILY 05/24/18 [History] clopidogrel 75 mg tablet 75 mg PO DAILY #30 tab 06/06/18 [Rx Confirmed 06/06/18] PFSH Medical History Hyperlipidemia (Chronic) SVT (supraventricular tachycardia) (Chronic) Essential hypertension (Chronic) Asthma (Chronic) Degenerative arthritis of left foot (Chronic) Parathyroid disease (Resolved) Strain of foot, left (Resolved) Surgical History History of cataract surgery (Resolved) History of colonoscopy (Resolved 02/2018) History of parathyroidectomy (Resolved) Hx of cholecystectomy (Resolved) Hx of colonoscopy (Resolved) Family History Father CAD (coronary artery disease) Mother No problems noted. Social History Smoking Status: Never smoker alcohol intake: never substance use type: does not use caffeine: No what type of physical activity do you participate in: none ROS Const Const: Negative for fatigue, weakness, body ache, fever(s) or chills ENT ENT: Negative for dizziness Cardio Chest Pain: No Palpitations: No Edema: None Muscle aches with walking: None Resp Respiratory: Negative for SOB with activity, SOB at rest, SOB orthopnea\SOB lying down or paroxysmal nocturnal dyspnea GI GI: Negative nausea, vomiting blood/hematemesis, bright, red blood in stools or black,tarry stools : Negative for hematuria or frequent nighttime urination/ nocturia Musc Musc: Negative for muscle aches/ myalgia Skin Skin: Negative non-healing lesions or rash Neuro Neuro: Negative for dizziness, lightheadedness, near syncope, syncope, orthostatic symptoms or weakness Endo Endo: Negative for fatigue Allergy Allergy/Immunology: Negative for rash Cardiology Exam Const Appearance: cooperative, healthy appearing, comfortable and no acute distress Nutritional Appearance: well nourished and overweight Orientation: alert, awake and oriented x3 Head Head: normal to inspection Ears: hearing grossly normal bilaterally Nose: external nose normal Face and Sinus: face symmetric Mouth: oral mucosae normal Eyes General: appearance normal, both eyes and all related structures Eyelids: eyelids normal EOM: EOM intact bilaterally Neck Neck: normal visual inspection and no JVD Carotids: normal carotid upstroke Chest Chest inspection: normal inspection of the chest, symmetric chest movement and normal respiratory effort; negative cough Auscultation: Bilateral: Clear to Auscultation Cardio Rate: regular rate Rhythm: regular rhythm Heart sounds: S1 normal and S2 normal; negative rub, gallop or murmur GI GI: normal to inspection Neuro General: alert, awake, oriented x3 and CN's II-XI intact bilaterally Skin Skin: no rashes or lesions noted Extremities Pulses: Normal: Right Posterior Tibial Pulse, Left Posterior Tibial Pulse, Right Radial Pulse, Left Radial Pulse Lower Extremity Edema: None: Bilateral Psych Psychological: normal affect Assessment & Plan 1. Abnormal stress echo R94.39 Plan - STACI Esqueda As noted above, her most recent stress echocardiogram on 06/01/2018 was considered to be abnormal. She will proceed with a left heart catheterization for further assessment. Patient results further recommendation will be made. She does have a allergy to iodine and will receive Benadryl and Solu-Medrol morning of heart catheterization. 2. SVT (supraventricular tachycardia) I47.1 Plan - STACI Esqueda Her EKG today in office showed sinus rhythm with ventricular ectopy. Her heart rate was noted to be 64 bpm and a QTC of 407. At this time, she will continue current medications we will continue to monitor. 3. Postoperative atrial fibrillation I97.89; I48.91 Plan - STACI Esqueda She appears to maintain regular rhythm. She will continue with current rate limiting medications. We will continue to monitor. Orders Orders: 12 Lead EKG performed by [facility] Today 4. Essential (primary) hypertension I10 Plan - STACI Esqueda Patient's blood pressure is well-controlled. We will continue to monitor. We will not make any medication regimen changes. She does not knowledge a recent mechanical fall and was seen in the emergency department yesterday and noted to have elevated blood pressure. Her elevated blood pressure at this time is been attributed to discomfort at that time. 5. Pure hypercholesterolemia E78.00 Plan - STACI Esqueda She will continue with current low-dose statin medication. Plan Detail Other Medications New: clopidogrel 75 mg PO DAILY 30 tabs 11RF Additional Comments - STACI Esqueda Discussed the above patient with Dr. Rodriguez, he agrees with the plan of care. Thank you for allowing us to participate in the patients plan of care, if you have any questions please do not hesitate to call. This note was generated using a voice recognition system and there may be incorrect words, spelling or punctuation that were not noted when reviewing the office note prior to saving. Coding Level of Care Code Off vis,est,level 3 Diagnoses Abnormal stress echo R94.39 SVT (supraventricular tachycardia) I47.1 Postoperative atrial fibrillation I97.89; I48.91 Essential (primary) hypertension I10 Pure hypercholesterolemia E78.00 ??Hyperlipidemia type: pure hypercholesterolemia Coding Level of Care Code Off vis,est,level 3 Diagnoses Abnormal stress echo R94.39 SVT (supraventricular tachycardia) I47.1 Postoperative atrial fibrillation I97.89; I48.91 Essential (primary) hypertension I10 Pure hypercholesterolemia E78.00 ??Hyperlipidemia type: pure hypercholesterolemia Supplemental Info Supplemental Information Stress echocardiogram 05/22/2018: Conclusion Exercise stress echocardiogram with EKG criteria suggestive of ischemia Normal resting echocardiographic images with indeterminate stress echocardiographic images Diagnostics Electrocardiogram 06/06/18 Stress Echocardiogram 05/22/18
[2018-06-13 17:35] LABS: Absolute Lymphocyte Count 1.51 X10^3/ul (0.83-4.51); Absolute Neutrophil Count 4.1 X10^3/uL (2.0-7.7); Basophil# 0.03 X10^3/uL; Basophil% 0.5 % (0-1); Eosinophil# 0.17 X10^3/uL; Eosinophils% 2.6 % (0-5); Hematocrit 33.2 % (37-47); Hemoglobin 10.8 g/dl (12.0-15.0); Lymphocyte # 1.51 X10^3/ul (4.0); Mean Corp Hgb Conc 32.5 g/gl (32-36); Mean Corpuscular Hgb 26.9 pg (27.0-32.0); Mean Corpuscular Volume 82.6 fL (81-99); Mean Platelet Vol. 9.6 fl (6.2-12.0); Monocyte# 0.72 X10^3/uL; Neutrophil # 4.13 X10^3/uL (2.7-7.7); Neutrophil % 62.7 % (47-70); Platelet Count 217 K/mm3 (150-450); RBC Distribution Width SD 45.5 fl (35.1-43.9); Red Blood Count 4.02 M/mm3 (4.2-5.4); White Blood Count 6.6 K/mm3 (4.4-11.0)
[2018-06-13 17:42] LABS: POSITIVE COUNT NO; POSITIVE DIFFERENTIAL NO; POSITIVE MORPHOLOGY NO
[2018-06-13 17:57] LABS: Anion Gap 4 (5-15); BUN 14 mg/dL (7-18); BUN/Creat Ratio 18.8 RATIO (10-20); Calcium,Total 8.6 mg/dL (8.5-10.1); Chloride 106 mmol/L (98-107); Creatinine, Serum 0.75 mg/dL (0.55-1.02); EST Glomerular Filtration Rate 80 mL/min (>60); Est Glom Filt Rate - Afr Amer 97 mL/min (>60); Glucose 80 mg/dL (74-106); Potassium 3.4 mmol/L (3.5-5.1); Sodium Level 139 mmol/L (136-145)
--- NOTE | 2018-06-19 10:16 | RAD_ITS ---
STUDY: X-RAY CHEST REASON FOR EXAM: Female, 77 years old. Preop heart catheter. TECHNIQUE: PA and lateral views of the chest. COMPARISON: PA and lateral chest x-ray June 06, 2015. FINDINGS: The lungs are clear and deeply expanded. There is no demonstrated pleural abnormality. Normal size heart. Normal mediastinum and rosana. Normal visualized pulmonary arteries. Normal visualized aortic arch and descending thoracic aorta. There are stable multilevel degenerative changes of the visualized thoracic spine. Normal visualized ribs, clavicles, and shoulders. There is no demonstrated abnormality of the visualized soft tissue structures of the upper abdomen. RAD/Chest PA and Lateral IMPRESSION: No acute cardiopulmonary disease. Electronically Signed: Rory Paniagua MD at 22:52 EDT , Service support ,
[2018-06-21 11:51] VITALS: BMI 27.4
--- NOTE | 2018-06-25 10:32 | CL.D_ITS ---
Patient Name: JERMAIN JENKINS Study Date: 06/25/2018 Performing: Chava Rodriguez MD Ht: 61.81 inches 157 cm : 1940 Wt: 149.91 lbs 68 kg Age: 77 Gender: female BSA: 1.69 PROCEDURE(S) PERFORMED IF33-QTX/COR/LV CLINICAL PROFILE AND INDICATIONS Indications: Suspected CAD Heart Failure: None Stress/Imaging Date: 05/27/2018 CAD Presentations: Symptom unlikely to be ischemic. CONCLUSIONS Normal coronary arteries Normal LV size, wall motion,and systolic function Uncontrolled hypertension RECOMMENDATIONS Medical therapy DESCRIPTION OF PROCEDURE The patient arrived to the procedure lab. The risks and benefits of the procedure as well as a full d escription of our services here and current unavailability of surgical backup were fully explained to the patient and/or their significant other prior to the catheterization. The Timeout was completed, verifying the correct patient and procedure. The patient's procedural site was prepped and draped in the usual fashion. Local anesthetic was given subcutaneously to right radial region with Lidocaine 2% . Local anesthetic was given subcutaneously to right groin region with Lidocaine 2%. Using a modified Seldinger technique, arterial access was obtained via the right radial artery, a 6Fr sheath was inse rted., arterial access was obtained via the right femoral artery, a 5Fr sheath was inserted. Left Co ronary Artery selective angiography was performed in multiple views using a 5 Fr. JL4 catheter. Right Coronary Artery selective angiography was then performed in multiple views using a 5 Fr. 3DRC (Mike) catheter. Left Ventriculography was performed in DOWNS projection using a 5 Fr. Pigtail catheter. LV to AO pullback pressures were then recorded.The arterial sheath was pulled and a Mynx c losure device was deployed for hemostasis CORONARY ANGIOGRAPHY DOMINANCE: Right Dominant LEFT HEART ASSESSMENT Left Ventricular Ejection Fraction: by LV Gram 60 % Normal LV wall motion Normal Left Ventricular systolic function LEFT MAIN: Angiographically normal LEFT ANTERIOR DESCENDING ARTERY: Angiographically normal CIRCUMFLEX ARTERY: Angiographically normal RIGHT CORONARY ARTERY: Angiographically normal COMPLICATIONS No Complications PROCEDURE MEDICATIONS Fentanyl 50 mcg IV Versed 1 mg IV Oxygen: 2 L/min via nasal cannula Benadryl 50 mg IV @ 06/25/2018 09:57:08 Heparin diluted in 23cc Heparinized saline. Patient given 10cc IA of this solution. 06/25/2018 10:02: 05 Solu-medrol 125 mg IV 06/25/2018 09:57:15 Verapamil 2.5mg, Ntg 100mcgs, 2000 units of Heparin diluted in 23cc Heparinized saline. Patient give n 10cc IA of this solution. 06/25/2018 10:02:05 SUMMARY OF HEMODYNAMIC DATA Time AIR REST ECG 09:11:21 AO 141/59 (90) SA 10:06:52 AO 157/81 (109) 10:13:18 LV 170/2, 15 10:18:39 LV 170/4, 15 10:18:46 LV 170/-8, 19 10:19:34 LVp 174/-9, 18 10:19:37 AOp 176/69 (114) 10:19:42 Signed By Chava Rodriguez MD On 06/25/2018 10:31:53 AM Chava Rodriguez MD
== END 2018-06-25 13:15 | disposition home or self-care (01) ==
LOC: CLSP 08:46
PROVIDERS: Family Provider Family Medicine; PCP Family Medicine; Referring Provider Internal Medicine Cardiovascular Disease; Visit Provider Internal Medicine Cardiovascular Disease
DX: R94.39 Abnormal result of other cardiovascular function study (principal); I10 Essential (primary) hypertension; I47.1 Supraventricular tachycardia; I97.89 Other postprocedural complications and disorders of the circulatory system, not elsewhere classified; I48.91 Unspecified atrial fibrillation; E78.00 Pure hypercholesterolemia, unspecified; M19.072 Primary osteoarthritis, left ankle and foot; Z79.82 Long term (current) use of aspirin; Z79.899 Other long term (current) drug therapy
CPT/HCPCS: 36415; 71046; 80048; 85025; 93458; 99152; 99153; C1760; J7040; Q9967; C1769; C1894

== ENCOUNTER → 2018-06-26 | Outpatient (CLI) | payer OTHER, SELFPAY ==
[2018-06-21 11:51] VITALS: BMI 27.4
== END | disposition home or self-care (01) ==
LOC: LABSPEC 12:21
PROVIDERS: Family Provider Family Medicine; PCP Family Medicine; Referring Provider Family Medicine; Visit Provider Family Medicine
DX: R19.7 Diarrhea, unspecified (principal)
CPT/HCPCS: 87177; 87209; 87493; 87506

== ENCOUNTER → 2018-07-06 | Outpatient (CLI) | payer OTHER, SELFPAY ==
[2018-06-21 11:51] VITALS: BMI 27.4
[2018-07-06 13:27] LABS: Absolute Lymphocyte Count 1.98 X10^3/ul (0.83-4.51); Absolute Neutrophil Count 4.7 X10^3/uL (2.0-7.7); Basophil# 0.04 X10^3/uL; Basophil% 0.5 % (0-1); Eosinophil# 0.17 X10^3/uL; Eosinophils% 2.2 % (0-5); Hematocrit 37.8 % (37-47); Hemoglobin 12.3 g/dl (12.0-15.0); Lymphocyte # 1.98 X10^3/ul (4.0); Lymphocyte % 25.5 % (19-41); Mean Corp Hgb Conc 32.5 g/gl (32-36); Mean Corpuscular Hgb 27.5 pg (27.0-32.0); Mean Corpuscular Volume 84.4 fL (81-99); Mean Platelet Vol. 10.6 fl (6.2-12.0); Monocyte# 0.84 X10^3/uL; Monocyte% 10.8 % (0-10); Neutrophil # 4.71 X10^3/uL (2.7-7.7); Neutrophil % 60.9 % (47-70); Platelet Count 263 K/mm3 (150-450); RBC Distribution Width CV 16.3 % (11.6-14.6); RBC Distribution Width SD 49.3 fl (35.1-43.9); Red Blood Count 4.48 M/mm3 (4.2-5.4); White Blood Count 7.8 K/mm3 (4.4-11.0)
[2018-07-06 13:28] LABS: POSITIVE COUNT NO; POSITIVE DIFFERENTIAL NO; POSITIVE MORPHOLOGY NO
[2018-07-06 13:54] LABS: Anion Gap 7 (5-15); BUN 21 mg/dL (7-18); BUN/Creat Ratio 24.2 RATIO (10-20); Calcium,Total 9.1 mg/dL (8.5-10.1); Chloride 104 mmol/L (98-107); Creatinine, Serum 0.87 mg/dL (0.55-1.02); EST Glomerular Filtration Rate 67 mL/min (>60); Est Glom Filt Rate - Afr Amer 82 mL/min (>60); Glucose 114 mg/dL (74-106); Potassium 3.9 mmol/L (3.5-5.1); Sodium Level 141 mmol/L (136-145)
== END | disposition home or self-care (01) ==
LOC: LAB 12:36
PROVIDERS: Nurse Practitioner Family; Family Provider Family Medicine; PCP Family Medicine; Referring Provider Family Medicine; Visit Provider Family Medicine
DX: D64.9 Anemia, unspecified (principal); E87.6 Hypokalemia; I10 Essential (primary) hypertension
CPT/HCPCS: 36415; 80048; 85025

== ENCOUNTER → 2018-08-22 | Outpatient (CLI) | payer OTHER, SELFPAY ==
[2018-06-21 11:51] VITALS: BMI 27.4
[2018-08-22 09:03] LABS: Albumin, Serum 3.4 g/dL (3.2-5.0); BUN 17 mg/dL (7-18); Calcium,Total 8.8 mg/dL (8.5-10.1); Chloride 102 mmol/L (98-107); Creatinine, Serum 0.71 mg/dL (0.55-1.02); EST Glomerular Filtration Rate 85 mL/min (>60); Est Glom Filt Rate - Afr Amer 103 mL/min (>60); Glucose 87 mg/dL (74-106); Phosphorus 3.2 mg/dL (2.5-4.9); Sodium Level 139 mmol/L (136-145)
[2018-08-22 09:18] LABS: Vitamin D,25 Hydroxy 40.4 ng/mL (29.95-100.01)
[2018-08-22 09:19] LABS: PTHIN 24.9 pg/mL (18.4-80.1)
== END | disposition home or self-care (01) ==
PROVIDERS: Family Provider Family Medicine; PCP Family Medicine; Referring Provider Internal Medicine Endocrinology, Diabetes & Metabolism; Visit Provider Internal Medicine Endocrinology, Diabetes & Metabolism
DX: M81.0 Age-related osteoporosis without current pathological fracture (principal); E55.9 Vitamin D deficiency, unspecified; I10 Essential (primary) hypertension; Z79.899 Other long term (current) drug therapy
CPT/HCPCS: 36415; 80069; 82306; 83970

== ENCOUNTER → 2018-08-25 | Outpatient (CLI) | payer OTHER, SELFPAY ==
[2018-06-21 11:51] VITALS: BMI 27.4
[2018-08-25 11:25] LABS: 24HR. Urine Creatinine 0.62 g/24 HR (0.70-1.90)
[2018-08-25 11:28] LABS: 24HR UR TOTAL VOLUME 900 ml; Calcium Urine pH Range 2
[2018-08-25 11:29] LABS: Urine Calcium (Random) < 6.0 (Not Estab.)
== END | disposition home or self-care (01) ==
LOC: LAB.FUTURE 10:50
PROVIDERS: Family Provider Family Medicine; PCP Family Medicine; Referring Provider Internal Medicine Endocrinology, Diabetes & Metabolism; Visit Provider Internal Medicine Endocrinology, Diabetes & Metabolism
DX: M81.0 Age-related osteoporosis without current pathological fracture (principal); E55.9 Vitamin D deficiency, unspecified; I10 Essential (primary) hypertension; Z79.899 Other long term (current) drug therapy
CPT/HCPCS: 82340; 82570

== ENCOUNTER → 2018-09-14 | Outpatient (CLI) | payer OTHER, SELFPAY ==
[2018-06-21 11:51] VITALS: BMI 27.4
[2018-09-14 13:03] LABS: Potassium 3.6 mmol/L (3.5-5.1)
== END | disposition home or self-care (01) ==
LOC: LAB 11:45
PROVIDERS: Family Provider Family Medicine; PCP Family Medicine; Referring Provider Internal Medicine Endocrinology, Diabetes & Metabolism; Visit Provider Internal Medicine Endocrinology, Diabetes & Metabolism
DX: E87.6 Hypokalemia (principal)
CPT/HCPCS: 36415; 84132

== ENCOUNTER → 2019-01-31 12:33 | Outpatient (CLI) | payer OTHER, SELFPAY ==
[2018-06-21 11:51] VITALS: BMI 27.4
== END ==
PROVIDERS: Family Provider Family Medicine; PCP Family Medicine; Referring Provider Family Medicine; Visit Provider Family Medicine
DX: R30.0 Dysuria (principal)
CPT/HCPCS: 87077; 87086; 87088; 87186

== ENCOUNTER → 2019-03-07 11:47 | Outpatient (CLI) | payer OTHER, SELFPAY ==
[2018-06-21 11:51] VITALS: BMI 27.4
[2019-03-07 13:22] LABS: Vitamin D,25 Hydroxy 48.9 ng/mL (29.95-100.01)
[2019-03-07 13:25] LABS: Albumin, Serum 3.6 g/dL (3.2-5.0); BUN 16 mg/dL (7-18); BUN/Creat Ratio 20.8 RATIO (10-20); Calcium,Total 9.1 mg/dL (8.5-10.1); Chloride 106 mmol/L (98-107); Creatinine, Serum 0.77 mg/dL (0.55-1.02); EST Glomerular Filtration Rate 77 mL/min (>60); Est Glom Filt Rate - Afr Amer 93 mL/min (>60); Glucose 82 mg/dL (74-106); Phosphorus 3.4 mg/dL (2.5-4.9); Potassium 3.6 mmol/L (3.5-5.1); Sodium Level 140 mmol/L (136-145); Thyroid Stim Hormone (TSH) 0.93 uIU/mL (0.358-3.74)
[2019-03-08 21:56] LABS: C-Peptide 1.8 ng/mL (1.1-4.4)
== END ==
PROVIDERS: PCP Family Medicine; Referring Provider Internal Medicine Endocrinology, Diabetes & Metabolism; Visit Provider Internal Medicine Endocrinology, Diabetes & Metabolism
DX: M81.0 Age-related osteoporosis without current pathological fracture (principal); E55.9 Vitamin D deficiency, unspecified; I10 Essential (primary) hypertension; Z79.899 Other long term (current) drug therapy
CPT/HCPCS: 36415; 80069; 82306; 84443; 84681

== ENCOUNTER → 2019-09-03 11:45 | Outpatient (CLI) | payer OTHER, SELFPAY ==
[2019-05-03 09:04] VITALS: BMI 26.6
[2019-09-03 12:59] LABS: BUN 19 mg/dL (7-18); BUN/Creat Ratio 24.9 RATIO (10-20); Calcium,Total 9.2 mg/dL (8.5-10.1); Chloride 105 mmol/L (98-107); Creatinine, Serum 0.76 mg/dL (0.55-1.02); EST Glomerular Filtration Rate 78 mL/min (>60); Est Glom Filt Rate - Afr Amer 94 mL/min (>60); Glucose 107 mg/dL (74-106); Phosphorus 4.1 mg/dL (2.5-4.9); Potassium 3.5 mmol/L (3.5-5.1); Sodium Level 139 mmol/L (136-145)
== END ==
PROVIDERS: PCP Family Medicine; Referring Provider Internal Medicine Endocrinology, Diabetes & Metabolism; Visit Provider Internal Medicine Endocrinology, Diabetes & Metabolism
DX: M81.0 Age-related osteoporosis without current pathological fracture (principal); E55.9 Vitamin D deficiency, unspecified; I10 Essential (primary) hypertension; Z79.899 Other long term (current) drug therapy
CPT/HCPCS: 36415; 80069

== ENCOUNTER → 2019-10-31 11:56 | Outpatient (CLI) | payer OTHER, SELFPAY ==
[2019-05-03 09:04] VITALS: BMI 26.6
--- NOTE | 2019-10-31 11:58 | BI_ITS ---
MAMMOGRAPHY - BILATERAL SCREENING REASON FOR EXAM: Female, 78 years old. Routine annual screening examination. PERTINENT HISTORY: Remote left excisional breast biopsy. TECHNIQUE: Digital bilateral breast mikie (3D mammographic acquisition) in the CC and MLO projections. 2-D mediolateral oblique (MLO) and craniocaudad (CC) views of both breasts were obtained. CAD: Full Field Digital Mammography with Computer Added Detection was performed. COMPARISON: Comparison is made with prior study dated 04/25/2018 and 10/31/2016. FINDINGS: Breast Composition: There are scattered areas of fibroglandular density. There are no dominant masses or suspicious calcifications. Stable bilateral secretory calcifications. Stable small benign appearing bilateral axillary lymph nodes. No other significant abnormalities are identified. There has been no significant change since the prior study. BI/SCREEN MAMM (CAD) W/MIKIE BILAT IMPRESSION: Stable bilateral screening mammogram. Yearly follow-up mammogram recommended. (A) ASSESSMENT CATEGORY: BIRADS Category 2: Benign. A letter regarding these results will be sent to the patient by the facility within 30 days. Approximately 10% of breast cancers are not detected by mammography. A normal mammogram should not delay biopsy of a clinically suspicious abnormality. [id number] Electronically Signed: Sean Mckeon, at 13:14 EDT , Service support ,
--- NOTE | 2019-10-31 12:20 | BD_ITS ---
STUDY: DUAL ENERGY X-RAY ABSORPTIOMETRY / DXA REASON FOR EXAM: Female, 78 years old. Age of surgical chauncey- 32. Pat is 150# and 61 and quot; a loss of 2 and quot; per pat. Takes 1800mg of calcium and a multi-vit. Has hx of knee injections. Has a diuretic in her BPM. Currently on a bone building med unsure of name. Hx of a wrist fx and a foot fx. Parathyroid 200 magnesium. TECHNIQUE: Bone Mineral Density (BMD) measurements of lumbar spine and bilateral hips were obtained. COMPARISON: Comparison is made with prior examination dated 04/18/2017. FINDINGS: Lumbar Spine (L1-L4): g/cm2 (1.099) / T-score (-0.6) / Z-score (1.2) Findings are suggestive of normal bone density with a low fracture risk. Increased thoracic kyphosis. Left Femur Total: g/cm2 (0.760) / T-score (-2.0) / Z-score (-0.1) Left Femoral Neck: g/cm2 (0.708) / T-score (-2.4) / Z-score (-0.3) Right Femur Total: g/cm2 (0.720) / T-score (-2.3) / Z-score (-0.4) Right Femoral Neck: g/cm2 (0.715) / T-score (-2.3) / Z-score (-0.3) The T-Scores on the most recent prior examination were: Lumbar Spine (L1-L4): There has been worsening of bone density since the previous examination. Left Femur Total: which represents a worsening of 0.5%. Right Femur Total: which represents a worsening of 1.5%. BD/Dexa Bone Density Study IMPRESSION: The patient is considered osteopenic as outlined below according to World Eduardo Organization (WHO) criteria with a high fracture risk. There has been worsening of bone density since the previous examination. Reference Information: The T-score is the number of standard deviations above or below the standard which is normal for young adults at their peak bone mineral density. The World Health Organization (WHO) interprets the T-scores as follows: Above -1 Normal bone density Between -1 and -2.5 Osteopenia Equal to / or below -2.5 Osteoporosis As a practical clinical guideline, osteopenia may be graded as follows: Mild -1 through -1.5 Moderate -1.6 through -2.0 Severe -2.1 through -2.4 The Z-score is the number of standard deviations above or below age-matched controls. A Z-score of less than -1.5 would be considered abnormal. References: 1. NIH Osteoporosis and Related Bone Diseases http://www.osteo.org 2. International Society for Clinical Densitometry http://www.iscd.org 3. National Osteoporosis Foundation http://www.nof.org Electronically Signed: Sean Mckeon, at 13:34 EDT , Service support ,
[2019-10-31 13:20] LABS: AST(SGOT) 15 U/L (15-37); Alanine Aminotransfer ALT/SGPT 18 U/L (13-56); Anion Gap 7 (5-15); BUN 20 mg/dL (7-18); Calcium,Total 9.3 mg/dL (8.5-10.1); Chloride 107 mmol/L (98-107); Cholesterol 169 mg/dL (200); Creatinine, Serum 0.91 mg/dL (0.55-1.02); EST Glomerular Filtration Rate 64 mL/min (>60); Est Glom Filt Rate - Afr Amer 77 mL/min (>60); Glucose 117 mg/dL (74-106); High Density Lipoprotein 54 mg/dL; Potassium 3.9 mmol/L (3.5-5.1); Sodium Level 143 mmol/L (136-145); Triglycerides 232 mg/dL; Very Low Density Lipoprotein 46 mg/dL (5-40)
== END ==
PROVIDERS: PCP Family Medicine; Referring Provider Family Medicine; Visit Provider Family Medicine
DX: Z12.31 Encounter for screening mammogram for malignant neoplasm of breast (principal); M81.0 Age-related osteoporosis without current pathological fracture; I10 Essential (primary) hypertension; E78.00 Pure hypercholesterolemia, unspecified
CPT/HCPCS: 36415; 77063; 77067; 77080; 80048; 80061; 84450; 84460

== ENCOUNTER → 2020-03-09 13:28 | Outpatient (CLI) | payer BC, SELFPAY ==
[2019-05-03 09:04] VITALS: BMI 26.6
[2020-03-09 16:00] LABS: Vitamin D,25 Hydroxy 36.9 ng/mL
[2020-03-09 16:10] LABS: Albumin, Serum 3.7 g/dL (3.2-5.0); BUN 19 mg/dL (7-18); BUN/Creat Ratio 27.2 RATIO (10-20); Calcium,Total 8.9 mg/dL (8.5-10.1); Chloride 107 mmol/L (98-107); EST Glomerular Filtration Rate 86 mL/min (>60); Est Glom Filt Rate - Afr Amer 104 mL/min (>60); Glucose 76 mg/dL (74-106); Phosphorus 2.8 mg/dL (2.5-4.9); Potassium 3.4 mmol/L (3.5-5.1); Sodium Level 142 mmol/L (136-145)
[2020-03-10 08:34] LABS: PTHIN 42.2 pg/mL (18.4-80.1)
[2020-03-11 16:10] LABS: Endomysial Antibody IgA Negative (Negative)
[2020-03-11 21:31] LABS: Immunoglobulin A 283 mg/dL (64-422); t-Transglutaminase IgA <2 U/mL (0-3)
== END ==
PROVIDERS: PCP Family Medicine; Referring Provider Internal Medicine Endocrinology, Diabetes & Metabolism; Visit Provider Internal Medicine Endocrinology, Diabetes & Metabolism
DX: I10 Essential (primary) hypertension (principal); E55.9 Vitamin D deficiency, unspecified; Z79.899 Other long term (current) drug therapy; M85.89 Other specified disorders of bone density and structure, multiple sites
CPT/HCPCS: 36415; 80069; 82306; 82784; 83516; 83970; 86255

== ENCOUNTER → 2020-03-12 07:20 | Outpatient (CLI) | payer BC, SELFPAY ==
[2019-05-03 09:04] VITALS: BMI 26.6
[2020-03-12 10:48] LABS: Magnesium 1.9 mg/dL (1.6-2.6)
[2020-03-12 10:49] LABS: 24HR UR TOTAL VOLUME 600 ml; Calcium Urine pH Range 1
[2020-03-12 10:54] LABS: 24HR. Urine Creatinine 0.57 g/24 HR (0.70-1.90)
== END ==
PROVIDERS: PCP Family Medicine; Referring Provider Internal Medicine Endocrinology, Diabetes & Metabolism; Visit Provider Internal Medicine Endocrinology, Diabetes & Metabolism
DX: I10 Essential (primary) hypertension (principal); M85.89 Other specified disorders of bone density and structure, multiple sites; E55.9 Vitamin D deficiency, unspecified; Z79.899 Other long term (current) drug therapy
CPT/HCPCS: 36415; 81050; 82340; 82570; 83735

== ENCOUNTER 2020-03-13 08:38 | Outpatient (RCR) | payer BC, SELFPAY ==
[2019-05-03 09:04] VITALS: BMI 26.6
== END 2020-03-13 23:59 ==
LOC: IMMUN 08:38
PROVIDERS: PCP Family Medicine; Referring Provider Family Medicine; Visit Provider Family Medicine
DX: Z23 Encounter for immunization (principal)
CPT/HCPCS: 0011A; 0012A; 91301

== ENCOUNTER → 2020-08-20 08:49 | Outpatient (CLI) | payer MEDICARE, OTHER, SELFPAY ==
[2020-05-15 09:32] VITALS: BMI 29.0
--- NOTE | 2020-08-20 09:03 | CT_ITS ---
STUDY: CT ABDOMEN AND PELVIS WITHOUT CONTRAST REASON FOR EXAM: Female, 79 years old. Abdominal pain, suspect diverticulitis RADIATION DOSAGE (If Supplied By Facility): CTDIvol = ( 7.06 ) mGy, DLP = ( 289.38 ) mGycm TECHNIQUE: Transaxial images were obtained from the dome of the diaphragm to the symphysis pubis without oral contrast, and without intravenous contrast. Sagittal and coronal images were reconstructed. Individualized dose optimization techniques were used for this CT. COMPARISON: None. FINDINGS: Minimal increased linear markings at the left lung base suggestive of linear scarring. Calcification of the mitral valve annulus. There is a 4.7 signed by 4.4 cm x 4.7 cm hypoechoic solid mass in the left lobe of the liver. There are surgical clips in the gallbladder fossa consistent with a prior cholecystectomy. Normal spleen. Normal pancreas. Normal bilateral adrenal glands. Normal right kidney. Normal left kidney. Normal visualized stomach. Normal small intestine. There is diffuse circumferential wall thickening of the cecum and proximal ascending colon. Sigmoid diverticulosis. There is diffuse atherosclerotic calcification of the abdominal aorta, without a demonstrated aneurysm. Normal inferior vena cava. Normal retroperitoneum. Normal urinary bladder. There is absence of the uterus consistent with a prior hysterectomy. Small bilateral inguinal hernias containing fat. There are diffuse degenerative changes of the visualized lumbar spine. CT/Abdomen/Pelvis without Cont IMPRESSION: 4.7 cm x 4.4 cm x 4.7 cm hypoechoic solid mass in the left lobe of liver. Diffuse circumferential wall thickening of the cecum and proximal ascending colon. A neoplastic process should be ruled out. Electronically Signed: Sean Mckeon MD at 11:57 EDT , Service support ,
[2020-08-20 12:56] LABS: Absolute Lymphocyte Count 1.81 X10^3/uL (0.83-4.51); Absolute Neutrophil Count 4.6 X10^3/uL (2.0-7.7); Basophil# 0.07 X10^3/uL; Basophil% 0.9 % (0-1); Hemoglobin 13.4 g/dL (12.0-15.0); Lymphocyte # 1.81 X10^3/ul (0.83-4.51); Lymphocyte % 24.1 % (19-41); Mean Corp Hgb Conc 31.9 g/dL (32-36); Mean Corpuscular Hgb 28.5 pg (27.0-32.0); Mean Corpuscular Volume 89.4 fL (81-99); Mean Platelet Vol. 10.8 fl (6.2-12.0); Monocyte% 9.3 % (0-10); NRBC Flagged by Analyzer 0 % (0-5); Neutrophil # 4.61 X10^3/uL (2.7-7.7); Neutrophil % 61.4 % (47-70); Platelet Count 300 K/mm3 (150-450); RBC Distribution Width CV 14.3 % (11.6-14.6); RBC Distribution Width SD 47.2 fl (35.1-43.9); White Blood Count 7.5 K/mm3 (4.4-11.0)
[2020-08-20 13:23] LABS: Amylase 47 U/L (25-115); Lipase 67 U/L (73-393)
== END ==
PROVIDERS: PCP Family Medicine; Referring Provider Family Medicine; Visit Provider Family Medicine
DX: R10.9 Unspecified abdominal pain (principal)
CPT/HCPCS: 36415; 74176; 82150; 83690; 85025

== ENCOUNTER → 2020-09-07 06:32 | Outpatient (CLI) | payer MEDICARE, OTHER, BC, SELFPAY ==
[2020-08-28 09:48] VITALS: BMI 29.0
--- NOTE | 2020-09-07 06:33 | MRI_ITS ---
ACR Level 3 findings have been noted. An addendum which confirms receipt of the report will follow. STUDY: MRI ABDOMEN WITH AND WITHOUT CONTRAST REASON FOR EXAM: Female, 79 years old. Liver mass , f/u ct abd TECHNIQUE: Standardized fat and water weighted pulse sequences were obtained in all 3 orthogonal planes post contrast administration. 13 IV Dotarem was administered for the contrast portion of the examination. COMPARISON: None. FINDINGS: The visualized lung bases are unremarkable. The visualized portions of the heart are within normal limits. The liver is non-cirrhotic. There are innumerable T2 hyperintense lesions throughout the liver which arterially hyperenhancing and demonstrate washout on delayed images. The largest of these is in the left hepatic lobe measuring 4.9 x 3.8 x 4.9 cm. This lesion in particular demonstrates a central T1 hyperintense area consistent with hemorrhage.. There are surgical clips in the gallbladder fossa consistent with a prior cholecystectomy. Normal spleen. Normal pancreas. Normal bilateral adrenal glands. Normal right kidney. Normal left kidney. Normal visualized stomach. Normal visualized small intestine. Normal visualized colon. Normal abdominal aorta. Normal inferior vena cava. Normal retroperitoneum. Normal abdominal wall. There are diffuse degenerative changes of the visualized lumbar spine. MRI/MRI Abd WITH and W/O Contrast IMPRESSION: Innumerable hypervascular lesions throughout the liver concerning for metastatic disease from an unknown primary. The largest of these measures 5 cm and demonstrates internal hemorrhage. Electronically Signed: Benjamín Galicia MD at 17:36 EDT Tel , Service support ,
[2020-09-07 06:56] LABS: CREATININE FINGERSTICK < 0.6 mg/dL (0.55-1.02); EGFR FINGERSTICK > 60.0000 mL/min (>60)
== END ==
PROVIDERS: PCP Family Medicine; Referring Provider Surgery; Visit Provider Surgery
DX: R16.0 Hepatomegaly, not elsewhere classified (principal)
CPT/HCPCS: 74183; A9575

== ENCOUNTER 2020-09-08 08:53 | Day surgery (SDC) | payer MEDICARE, OTHER, BC, SELFPAY ==
[2020-08-28 09:48] VITALS: BMI 29.0
[2020-09-08 09:30] VITALS: BP 148/73; PULSE 66; RESP 16; TEMP 36.2; O2SAT 99; BMI 26.1
[2020-09-08] MEDS: Lactated Ringers 1,000 ML 100 ML IV (09:44)
--- NOTE | 2020-09-08 10:15 | COLBX_PTH ---
PATIENT: JERMAIN JENKINS LOC: EN U#:[id number] AGE/SX: 79/F ROOM: RE09/08/[address]: Dr. Francisco Corbin MD : 1940 BED: DIS: 09/08/2020 SPEC #: [id number] RECD: 09/08/20 10:40 STATUS: KEENAN RERandi #: [id number] TAN: 09/08/20 10:[address]: Francisco Corbin DEPT: SURGICAL PATHOLOGY RECD BY: Orquidea Sibley ENTERED: 09/08/20 11:39 SP TYPE: COLON BX OTHR DR: Dr. Blanca Cruz MD Tissues: A - Cecum, NOS B - Right colon Procedures: Surgery Specimen Level IV HEADER OPERATION: Colonoscopy (MAC) PRE-OP DIAGNOSIS: Colon wall thickening, liver mass TISSUE SUBMITTED: A ? Ileocecal valve biopsy, B ? Right colon biopsy MICROSCOPIC DIAGNOSIS A. Ileocecal valve, biopsy: No significant pathologic change. See comment. B. Right colon, biopsy: No pathologic change. AM:adriana 09/09/2020 COMMENT A. Eosinophils are mildly increased in the mucosa. The significance of this is unclear. MICROSCOPIC DESCRIPTION Slides are reviewed. GROSS DESCRIPTION A - Received in fixative is one container labeled with the patient's name and designated ileocecal valve biopsy. The specimen consists of two irregular fragments of light crook soft tissue that in aggregate measure 0.5 x 0.4 x 0.1 cm. The specimen is totally submitted in one cassette. B - Received in fixative is one container labeled with the patient's name and designated right colon biopsy. The specimen consists of one irregular fragment of light crook soft tissue that measures 0.2 x 0.2 x 0.1 cm. The specimen is totally submitted in one cassette. / DEWEY:adriana 09/08/20 TC:5 CPT: 89238 x2
[2020-09-08 10:33] VITALS: BP 126/59; BP 148/73; PULSE 73; RESP 16; TEMP 36.5; O2SAT 96
[2020-09-08 10:35] VITALS: BP 129/70; BP 148/73; PULSE 63; RESP 16; O2SAT 96
[2020-09-08 10:40] VITALS: BP 133/61; BP 148/73; PULSE 60; RESP 16; O2SAT 98
--- NOTE | 2020-09-08 10:45 | OP.COLON_ITS ---
Patient Name: Mary Liu Procedure Date: 09/08/2020 9:55 AM Date of : 1940 Age: 79 Procedure: Colonoscopy Indications: Abnormal CT of the GI tract Providers: Francisco Corbin MD Referring MD: Blanca Cruz Medicines: Monitored Anesthesia Care Patient Profile: Last Colonoscopy: within the past 3 years. Complications: No immediate complications. Estimated blood loss: Minimal. Procedure: Pre-Anesthesia Assessment: - Prior to the procedure, a History and Physical was performed, and patient medications and allergies were reviewed. The patient's tolerance of previous anesthesia was also reviewed. The risks and benefits of the procedure and the sedation options and risks were discussed with the patient. All questions were answered, and informed consent was obtained. Prior Anticoagulants: The patient has taken no previous anticoagulant or antiplatelet agents. After reviewing the risks and benefits, the patient was deemed in satisfactory condition to undergo the procedure. After I obtained informed consent, the scope was passed under direct vision. Throughout the procedure, the patient's blood pressure, pulse, and oxygen saturations were monitored continuously. The Colonoscope was introduced through the anus and advanced to the cecum, identified by appendiceal orifice and ileocecal valve. The colonoscopy was performed without difficulty. The patient tolerated the procedure well. The quality of the bowel preparation was good. Scope In: 10:10:35 AM Scope Withdrawal Time 0 hours 9 minutes 47 seconds Scope Out: 10:29:32 AM Total Procedure Duration Time 0 hours 18 minutes 57 seconds Findings: The entire examined colon appeared normal on direct and retroflexion views. Biopsies were taken with a cold forceps in the cecum for histology. Impression: - The entire examined colon is normal on direct and retroflexion views. - Biopsies were taken with a cold forceps for histology in the cecum. Recommendation: - Discharge patient to home. - Resume previous diet. - Continue present medications. - Repeat colonoscopy is not recommended due to current age (66 years or older) for screening purposes. Procedure Code(s): --- Professional --- 18444, Colonoscopy, flexible; with biopsy, single or multiple Diagnosis Code(s): --- Professional --- R93.3, Abnormal findings on diagnostic imaging of other parts of digestive tract CPT copyright 2017 [employer]. All rights reserved. The codes documented in this report are preliminary and upon spinning machine operator review may be revised to meet current compliance requirements. Francisco Corbin MD 09/08/2020 10:44:28 AM This report has been signed electronically. Number of Addenda: 0 Note Initiated On: 09/08/2020 9:55 AM
--- NOTE | 2020-09-08 10:45 | OP.CCLET_ITS ---
09/08/2020 Blanca Cruz [address] [place] [address] Re : Colonoscopy procedure for Mary Liu Dear Dr. Cruz This procedure was performed on Tuesday, September 08, 2020. My impressions and recommendations are as follows: Impressions : - The entire examined colon is normal on direct and retroflexion views. - Biopsies were taken with a cold forceps for histology in the cecum. Recommendations : - Discharge patient to home. - Resume previous diet. - Continue present medications. - Repeat colonoscopy is not recommended due to current age (66 years or older) for screening purposes. My findings are described in the full procedure note, which is enclosed. If I can be of further assistance, please feel free to contact me at Doctor phone number(s): , Work: . Sincerely, Francisco Corbin MD 09/08/2020 10:44:28 AM This report has been signed electronically.
[2020-09-08 10:50] VITALS: BP 130/62; BP 148/73; PULSE 59; RESP 16; TEMP 36.1; O2SAT 100
[2020-09-08 11:24] VITALS: BP 148/73
--- NOTE | 2020-09-10 07:20 | HP.PCM_ITS ---
History and Physical Date of Admission: 09/10/20 Intake Vital Signs 08/28/20 09:41 08/28/20 09:48 Height 5 ft 1.25 in Weight: 148 lb 4 oz BMI 27.8 29.0 BP 186/83 H Blood Pressure Location Rt brachial Position Sitting Respiration 16 Pulse 89 Pulse Source Monitor Temp 97.7 F L Temp Source Temporal Pulse Oximetry (%) 97 Oxygen Delivery Method room air Intake Visit Reasons: CSCOPE/ EGD Chief Complaint: Abnormal CT scan [place] Required: No Accompanied by: Daughter Is patient in pain?: No (RLQ- on and off ) Allergies Iodinated Contrast Media [Iodinated Contrast Media - IV Dye] Allergy (Verified 08/28/20 09:46) Anaphylaxis Penicillins [PCN] Allergy (Verified 08/28/20 09:46) Hives Medications atorvastatin 10 mg PO QHS 01/31/15 [History Confirmed 08/28/20] sertraline 150 mg PO DAILY 01/31/15 [History Confirmed 08/28/20] calcium carbonate-vitamin D3 600 mg PO TID 07/28/15 [History Confirmed 08/28/20] cholecalciferol (vitamin D3) 2,000 unit PO DAILY 07/28/15 [History Confirmed 08/28/20] multivitamin,oh-ljtl-zyxqzydd 1 tab PO DAILY 07/28/15 [History Confirmed 08/28/20] flecainide 100 mg tablet 100 mg PO Q12H #180 tab 10/18/19 [Rx Confirmed 08/28/20] magnesium oxide 400 mg PO DAILY 05/15/20 [History Confirmed 08/28/20] pyridoxine (vitamin B6) 50 mg tablet 50 mg PO DAILY 05/15/20 [History Confirmed 08/28/20] amlodipine 5 mg tablet 5 mg PO DAILY #90 tablet 08/24/20 [Rx Confirmed 08/28/20] lisinopril 40 mg tablet 40 mg PO DAILY #90 tablet 08/24/20 [Rx Confirmed 08/28/20] metoprolol succinate 100 mg tablet,extended release 24 hr 100 mg PO DAILY #90 tab 08/24/20 [Rx Confirmed 08/28/20] ciprofloxacin HCl 500 mg tablet 500 mg PO BID tab 08/28/20 [History Confirmed 08/28/20] metronidazole 500 mg tablet 500 mg PO TID tab 08/28/20 [History Confirmed 08/28/20] omega-3 fatty acids 1,000 mg capsule 1,000 mg PO DAILY 08/28/20 [History Confirmed 08/28/20] [facility] Medical History (Updated 08/28/20 @ 10:[address] Francisco Corbin MD) A-fib Abdominal pain, RLQ Arthritis Asthma Colon wall thickening Degenerative arthritis of left foot Diarrhea Essential hypertension Fatigue Heart disease Hyperlipidemia Parathyroid disease Postoperative atrial fibrillation (02/2018) Strain of foot, left SVT (supraventricular tachycardia) Surgical History (Updated 08/28/20 @ 09:39 by Louann Leiva) History of appendectomy History of breast lump removal History of cataract surgery History of colonoscopy (02/2018) History of hysterectomy History of left heart catheterization (06/25/18) History of parathyroidectomy (~2013) History of surgery on left wrist Hx of arthroscopic knee surgery Hx of cholecystectomy Hx of colonoscopy Family History (Updated 08/28/20 @ 09:40 by Louann Leiva) Father CAD (coronary artery disease) Heart disease Hypertension Mother Hypertension Brother Hypertension Sister Hypertension Daughter Thyroid cancer Social History (Updated 08/28/20 @ 09:41 by Louann Leiva) Smoking Status: Never smoker second hand exposure: No alcohol intake: never substance use type: does not use caffeine: Yes what type of physical activity do you participate in: none frequency: does not exercise HPI HPI HPI: JERMAIN JENKINS, is a 79 F who presents to the office today for right abdominal pain and diarrhea. The patient reports she had a colonoscopy 2 years ago for right lower quadrant pain and diarrhea which was normal except for 2 polyps. The patient reports she is having ongoing diarrhea issues and increasing pain. ROS General General: Yes weight change and fatigue; No appetite, colon cancer, breast cancer or weakness HEENT HEENT: No difficulty swallowing, eye injury, eye surgery, swollen glands or hoarseness Endo Endocrine: Yes thyroid disease; No diabetes mellitus, thyroid cancer, Hair loss, heat intolerance or cold intolerance Skin Skin: No rash or changing moles Musc Musculoskeletal: Yes arthritis; No back problems, rheumatoid arthritis, gout or joint pain Cardio Cardiovascular: Yes heart disease, atrial fibrillation and high blood pressure; No murmur, pacemaker, heart attack, heart stent, palpitations, shortness of breat with exertion or chest pain Psych Psychiatric: No depression, anxiety or hearing voices Resp Respiratory: No shortness of breath, No sleep apnea, No cough, No COPD, No asthma, No emphysema and No wheezing Gastro Gastrointestinal: Yes abdominal pain, No nausea or vomiting, Yes diarrhea, No constipation, No blood in stool, No acid reflux, No hemorrhoids, No ulcers, No gallbladder problem and No black,tarry stools Michele Hematologic: No blood thinners, No blood disorders, No bleeding, No anemia and No blood clots Neuro Neurologic: No weakness Exam Const General: cooperative Orientation: alert and oriented x3 HENMT Head: normal to inspection Neck Neck: normal visual inspection and full ROM Chest Chest palpation & inspection: normal inspection of the chest Resp Effort & Inspection: normal respiratory effort Auscultation: clear to auscultation bilaterally Cardio Rate: regular rate Rhythm: regular rhythm GI Inspection: non-distended Palpation: soft and nontender Skin General: no rashes or lesions noted Neuro General: patient alert and patient oriented x3 Extrem General: full ROM Psych Appearance: grossly normal Mental Status: mental status grossly normal Assessment and Plan Assessment and Plan (1) Colon wall thickening: Status: Acute (2) Liver mass, left lobe: Status: Acute Orders: Orders: Colonoscopy Today K63.9 MRI Abd WITH and W/O Contrast Today R16.0 Plan - Dr. Francisco Corbin MD: The patient had a recent CT scan showing thickening of the cecum. Patient had a colonoscopy in 2019 for the same issues of diarrhea and abdominal pain which was normal. I recommend the patient have a repeat colonoscopy for direct evaluation of the cecum. I explained endoscopy in detail to the patient. I explained the risks including but not limited to stroke or heart attack with anesthesia, perforation of the GI tract, bleeding, infection. I explained that any of these could necessitate further emergency surgery. The patient understands and all questions were answered sufficiently. The patient wishes to proceed with procedure. Patient also has a liver mass of the left lobe. The mass is around 4 cm. The patient had an ultrasound in 2016 that showed a 2 cm possible hemangioma of the left lobe. This is significantly grown in size and I will order an MRI to evaluate. Francisco Corbin MD Pager: [facility] [address] [place] [address], [address] [place] [address] Office: I have re-examined the patient. There are no clinical changes since date of exam .
== END 2020-09-08 11:37 ==
LOC: EN 08:56 → AC 09:03
PROVIDERS: PCP Family Medicine; Referring Provider Family Medicine; Visit Provider Surgery
PROC: 0DJD8ZZ Inspection of Lower Intestinal Tract, Via Natural or Artificial Opening Endoscopic (ICD-10-PCS; CPT 45378; principal; 2020-09-08 10:10)
DX: R93.3 Abnormal findings on diagnostic imaging of other parts of digestive tract (principal); R16.0 Hepatomegaly, not elsewhere classified; I10 Essential (primary) hypertension; I47.1 Supraventricular tachycardia; E78.5 Hyperlipidemia, unspecified; I48.91 Unspecified atrial fibrillation; M19.90 Unspecified osteoarthritis, unspecified site; J45.909 Unspecified asthma, uncomplicated; Z79.899 Other long term (current) drug therapy
CPT/HCPCS: 45380; 88305; J7120; J2405

== ENCOUNTER → 2020-09-21 08:58 | Outpatient (CLI) | payer MEDICARE, BC, SELFPAY ==
[2020-09-17 09:31] VITALS: BMI 26.7
[2020-09-21 09:56] LABS: Albumin, Serum 3.8 g/dL (3.2-5.0); BUN 15 mg/dL (7-18); BUN/Creat Ratio 20.4 RATIO (10-20); Calcium,Total 9.1 mg/dL (8.5-10.1); Chloride 104 mmol/L (98-107); Creatinine, Serum 0.74 mg/dL (0.55-1.02); EST Glomerular Filtration Rate 81 mL/min (>60); Est Glom Filt Rate - Afr Amer 98 mL/min (>60); Glucose 89 mg/dL (74-106); Magnesium 1.8 mg/dL (1.6-2.6); Phosphorus 3.4 mg/dL (2.5-4.9); Potassium 4.1 mmol/L (3.5-5.1); Sodium Level 140 mmol/L (136-145)
== END ==
PROVIDERS: PCP Family Medicine; Referring Provider Internal Medicine Endocrinology, Diabetes & Metabolism; Visit Provider Internal Medicine Endocrinology, Diabetes & Metabolism
DX: M81.0 Age-related osteoporosis without current pathological fracture (principal)
CPT/HCPCS: 36415; 80069; 83735

== ENCOUNTER → 2020-09-25 08:53 | Outpatient (CLI) | payer MEDICARE, OTHER, BC, SELFPAY ==
[2020-09-17 09:31] VITALS: BMI 26.7
[2020-09-25] VITALS (12 sets, daily range): BP systolic 93–163; BP diastolic 50–104; PULSE 59–70; RESP 10–18; TEMP 36.1; O2SAT 92–97; BMI 26.3
--- NOTE | 2020-09-25 | IMM_PTH ---
PATIENT: JERMAIN JENKINS LOC: CT U#:[id number] AGE/SX: 84/F ROOM: RE09/25/[address]: Dr. Matt Nunez MD : 1940 BED: DIS: SPEC #: [id number] RECD: 09/28/20 12:15 STATUS: KEENAN REQ #: [id number] TAN: 09/25/20 00:[address]: Matt Nunez DEPT: IMMUNOHISTOCHEMISTRY RECD BY: iD Hennessy ENTERED: 09/28/20 12:16 SP TYPE: IMMUNO OTHR DR: Dr. Blanca Cruz MD Tissues: Liver, NOS Procedures: Synapto (add) NAPSIN A (add) CD56 (add) CHROMO (add) CK20 (add) CK7 (add) CK8 (add) JEFFREY-2 (add) KI-67 (add) TTF1 (add) Pankeratin (initial) P40 (add) CDX2 (add) NSE (add) S-100 (add) PHYSICIAN & [address] [address] SPECIMEN INFORMATION: Tissue Source: Liver Clinical Info: Liver mass Specimen Number: [id number] CPT code: 80488, 18009 x14 METHODOLOGY: Deparaffinized sections of prefer/formalin-fixed tissue or PAP/DQ stained slides are incubated with monoclonal/polyclonal antibodies/oligonucleotide probes. Localization is made via biotin free immunoperoxidase method. Appropriate controls are performed and reacted as expected. Results on target cell population are indicated in the following table: RESULTS: ANTIBODY / CLONE RESULT AE1-3 (AE1/AE3/PCK26) positive CK7 (OV-TL12/30) negative CK8 (22dybnX66) positive CK20 (KS20.8) negative JEFFREY-2 (SP21) positive CDX2 (BWE9734K) positive S-100 (4C4.9) negative CD56 (123C3.D5) positive Chromo (LK2H10) positive Synapto (polyclonal) positive NSE Neuron Specific Enolase positive TTF-1 (8G7G3/1) negative Napsin A (Rabbit Polyclonal) negative P40 (BC28) negative Ki-67 (30-9) positive, 5% These tests were developed and their performance characteristics determined by [facility]. They may not have been cleared or approved by the U.S. Food and Drug Administration. The FDA has determined that such clearance or approval is not necessary. The above immunohistochemical/dualISH markers are ordered and reviewed by the Pathologist. INTERPRETATION: Liver, CT-guided biopsy: Metastatic neuroendocrine carcinoma. See comment. AM:adriana 09/29/2020 Comment: A gastrointestinal primary is favored.
--- NOTE | 2020-09-25 | ASPIGT_PTH ---
PATIENT: JERMAIN JENKINS LOC: CT U#:[id number] AGE/SX: 84/F ROOM: RE09/25/[address]: Dr. Matt Nunez MD : 1940 BED: DIS: SPEC #: [id number] RECD: 09/25/20 10:30 STATUS: KEENAN RERandi #: [id number] TAN: 09/25/20 00:[address]: Matt Nunez DEPT: SURGICAL PATHOLOGY RECD BY: Nancy Espinoza ENTERED: 09/25/20 10:48 SP TYPE: ASP RAD OTHR DR: Dr. Blanca Cruz MD Tissues: Liver, NOS Procedures: FNA Specimen Adequacy Special Stain Group II Surgery Specimen Level IV Imprint (control) HEADER OPERATION: CT-guided liver biopsy PRE-OP DIAGNOSIS: Liver mass TISSUE SUBMITTED: Liver 18-gauge core x6 MICROSCOPIC DIAGNOSIS Liver mass, CT-guided core biopsy: Metastatic neuroendocrine carcinoma. See comment. AM:adriana 09/28/2020 COMMENT The specimen is evaluated at the time of biopsy by Dr. Hensley. Immediate Evaluation = Small blue cell neoplasm. Immunohistochemistry ([id number]) supports the above diagnosis. A low proliferation index is noted (Ki67 positive tumor cells are about 5%). A GI primary is favored. Clinical correlation is suggested. Case has been reviewed in consultation with Dr. Bunch who concurs with the above diagnosis. ZAC:DEWEY MICROSCOPIC DESCRIPTION Slides are reviewed. GROSS DESCRIPTION Received in fixative is one container labeled with the patient's name and designated liver. The specimen consists of multiple irregular fragments of crook soft tissue that in aggregate measure 1.5 x 0.1 x 0.1 cm. The entire specimen is submitted in one cassette. Six touch imprints are prepared at the time of core biopsy. / DEWEY:adriana 09/25/20 TC:0 [facility]: [id number], [id number] ADDENDUM ADDENDUM ADDENDUM ADDENDUM ADDENDUM ADDENDUM ADDENDUM 10/05/2020 10:21 ADDENDUM 10/05/2020 10:21 ADDENDUM 10/05/2020 10:21 ADDENDUM 10/05/2020 10:21 ADDENDUM 10/05/2020 10:21 ADDENDUM 11/16/2020 10:08 ADDENDUM 11/24/2020 12:18 SOLID TUMOR IMMUNOHISTOCHEMICAL ANALYSIS FROM [facility] RESULTS: Antibody Clone Results CD117 YR145 Negative Please see complete report in e-chart or EMR This addendum is added to incorporate an outside pathology consultation report. The case was examined at [facility] (#[id number]) and the following diagnosis was rendered. Liver mass, CT-guided core biopsy: Metastatic well-differentiated neuroendocrine tumor, G2. Please see complete above mentioned consultation report in EMR This addendum is added to incorporate an outside pathology consultation report. The case was examined at [facility] [facility] (#[id number]) and the following diagnosis was rendered. 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 Please see complete above mentioned consultation report in EMR
--- NOTE | 2020-09-25 08:54 | CT_ITS ---
PROCEDURE: CT DIRECTED CORE LIVER BIOPSY INDICATION: Female, 79 years old. LIVER MASS PHYSICIAN: Dr. KATIE Leong CONSENT: Written informed consent was obtained having explained the risks, benefits and alternatives in detail with the patient who accepted the risks and agreed to proceed. Laboratory review and clinical assessment was performed. CONSCIOUS SEDATION PROTOCOL: The Drugs used were: 2 mg Versed, IV., and 100 mcg Fentanyl, IV. The sedation time was: 25 minutes. Conscious sedation was started at 9:56 AM and terminated at 10:21 AM. The conscious sedation protocol was independently monitored. RADIATION DOSAGE (If Supplied By Facility): CTDIvol = ( 10.2 ) mGy, DLP = ( 305.47 ) mGycm Individualized dose optimization techniques were used for this CT. TECHNIQUE: Using CT image guidance with image documentation, a suitable location in the left lobe of the liver was identified. Using an anterior approach, puncture of the liver was uneventful with an 18-gauge core needle system. 6, 18-gauge core samples were obtained, and submitted in formalin to the pathologist for further assessment. Followup CT scan revealed no distinct sequelae. CT/Biopsy/Inj or Needle Placement IMPRESSION: 1. CT directed core needle biopsy of the liver, using CT image guidance with image documentation as described. 2. Conscious Sedation protocol utilized with independent monitoring. Electronically Signed: Sean Mckeon MD at 10:44 EDT , Service support ,
[2020-09-25] MEDS: Midazolam 2 MG/2 ML Syringe IV (09:52)
[2020-09-25] MEDS: fentaNYL 100 MCG/2 ML Ampul IV ×2 (09:56→10:35)
[2020-09-25] MEDS: 0.9% Saline Lock 10 ML Syringe IV (09:56)
[2020-09-25] MEDS: Lidocaine 2% (20 ml mdv) 20 ML Vial INFILT (10:00)
== END | disposition home or self-care (01) ==
PROVIDERS: PCP Family Medicine; Referring Provider Internal Medicine Hematology & Oncology; Visit Provider Internal Medicine Hematology & Oncology
DX: C78.7 Secondary malignant neoplasm of liver and intrahepatic bile duct (principal)
CPT/HCPCS: 47000; 77012; 88172; 88305; 88307; 88313; 88341; 88342; 99156; J7040; A4216

== ENCOUNTER → 2020-10-15 16:53 | Outpatient (CLI) | payer MEDICARE, BC, SELFPAY ==
[2020-10-15 17:13] LABS: Absolute Lymphocyte Count 1.24 X10^3/uL (0.83-4.51); Absolute Neutrophil Count 3.5 X10^3/uL (2.0-7.7); Basophil# 0.02 X10^3/uL; Basophil% 0.4 % (0-1); Eosinophil# 0.19 X10^3/uL; Eosinophils% 3.4 % (0-5); Hematocrit 39.7 % (37-47); Hemoglobin 12.9 g/dL (12.0-15.0); Lymphocyte # 1.24 X10^3/ul (0.83-4.51); Lymphocyte % 22.2 % (19-41); Mean Corp Hgb Conc 32.5 g/dL (32-36); Mean Corpuscular Hgb 29.1 pg (27.0-32.0); Mean Corpuscular Volume 89.4 fL (81-99); Monocyte% 10.8 % (0-10); NRBC Flagged by Analyzer 0 % (0-5); Neutrophil # 3.52 X10^3/uL (2.7-7.7); Platelet Count 261 K/mm3 (150-450); RBC Distribution Width SD 49.1 fl (35.1-43.9); Red Blood Count 4.44 M/mm3 (4.2-5.4); White Blood Count 5.6 K/mm3 (4.4-11.0)
[2020-10-15 17:34] LABS: ALB/GLOB Ratio 0.9 RATIO (0.9-2.4); AST(SGOT) 16 U/L (15-37); Alanine Aminotransfer ALT/SGPT 22 U/L (13-56); Albumin, Serum 3.7 g/dL (3.2-5.0); Alkaline Phosphatase 104 U/L (45-117); Anion Gap 2 (5-15); BUN 14 mg/dL (7-18); BUN/Creat Ratio 19.4 RATIO (10-20); Calcium,Total 8.9 mg/dL (8.5-10.1); Chloride 110 mmol/L (98-107); Creatinine, Serum 0.72 mg/dL (0.55-1.02); EST Glomerular Filtration Rate 83 mL/min (>60); Est Glom Filt Rate - Afr Amer 100 mL/min (>60); Globulin 3.9 g/dL (2.2-4.2); Glucose 119 mg/dL (74-106); Potassium 3.4 mmol/L (3.5-5.1); Protein, Total 7.6 g/dL (6.4-8.2); Sodium Level 141 mmol/L (136-145)
[2021-04-13 10:10] LABS: Absolute Lymphocyte Count 1.58 X10^3/uL (0.83-4.51); Absolute Neutrophil Count 4.5 X10^3/uL (2.0-7.7); Basophil# 0.08 X10^3/uL; Basophil% 1.1 % (0-1); Eosinophil# 0.29 X10^3/uL; Eosinophils% 4.1 % (0-5); Hematocrit 36.7 % (37-47); Hemoglobin 11.9 g/dL (12.0-15.0); Lymphocyte # 1.58 X10^3/ul (0.83-4.51); Lymphocyte % 22.2 % (19-41); Mean Corp Hgb Conc 32.4 g/dL (32-36); Mean Corpuscular Hgb 28.5 pg (27.0-32.0); Mean Platelet Vol. 9.3 fl (6.2-12.0); Monocyte% 8.4 % (0-10); NRBC Flagged by Analyzer 0 % (0-5); Neutrophil # 4.53 X10^3/uL (2.7-7.7); Neutrophil % 63.8 % (47-70); Platelet Count 370 K/mm3 (150-450); RBC Distribution Width CV 14.7 % (11.6-14.6); RBC Distribution Width SD 46.9 fl (35.1-43.9); Red Blood Count 4.17 M/mm3 (4.2-5.4); White Blood Count 7.1 K/mm3 (4.4-11.0)
[2021-04-13 10:26] LABS: ALB/GLOB Ratio 0.8 RATIO (0.9-2.4); AST(SGOT) 16 U/L (15-37); Alanine Aminotransfer ALT/SGPT 19 U/L (13-56); Albumin, Serum 3.4 g/dL (3.2-5.0); Alkaline Phosphatase 134 U/L (45-117); Anion Gap 6 (5-15); BUN 16 mg/dL (7-18); BUN/Creat Ratio 17.5 RATIO (10-20); Calcium,Total 9.1 mg/dL (8.5-10.1); Chloride 105 mmol/L (98-107); Creatinine, Serum 0.92 mg/dL (0.55-1.02); EST Glomerular Filtration Rate 63 mL/min (>60); Est Glom Filt Rate - Afr Amer 76 mL/min (>60); Glucose 153 mg/dL (74-106); Potassium 3.9 mmol/L (3.5-5.1); Protein, Total 7.4 g/dL (6.4-8.2); Sodium Level 138 mmol/L (136-145)
== END ==
PROVIDERS: PCP Family Medicine; Visit Provider Internal Medicine Hematology & Oncology
DX: C78.7 Secondary malignant neoplasm of liver and intrahepatic bile duct (principal); C7A.8 Other malignant neuroendocrine tumors; D35.1 Benign neoplasm of parathyroid gland
CPT/HCPCS: 36415; 80053; 85025

== ENCOUNTER → 2020-10-22 09:01 | Outpatient (CLI) | payer MEDICARE, BC, SELFPAY ==
--- NOTE | 2020-10-22 09:03 | EKG12_ITS ---
Test Reason : AFIB Blood Pressure : / mmHG Vent. Rate : 070 BPM Atrial Rate : 070 BPM P-R Int : 184 ms QRS Dur : 088 ms QT Int : 422 ms P-R-T Axes : 045 -10 021 degrees QTc Int : 455 ms Sinus rhythm with marked sinus arrhythmia Otherwise normal ECG Confirmed by LIV VENTURA, SUSANA ([id number]), greeting card editor SYLVIA GELLER ([id number]) on 10/26/2020 12:59:25 PM Referred By: Lamin Lamas Confirmed By:SUSANA PECK MD
== END ==
PROVIDERS: PCP Family Medicine; Referring Provider Nurse Practitioner Family; Visit Provider Nurse Practitioner Family
DX: D35.1 Benign neoplasm of parathyroid gland (principal); C78.7 Secondary malignant neoplasm of liver and intrahepatic bile duct; C7A.8 Other malignant neuroendocrine tumors; I47.1 Supraventricular tachycardia; I48.91 Unspecified atrial fibrillation
CPT/HCPCS: 93005; 93225; 93226

== ENCOUNTER → 2020-12-23 09:48 | Outpatient (CLI) | payer MEDICARE, BC, SELFPAY ==
[2020-12-23 11:00] LABS: PTHIN 54.6 pg/mL (18.4-80.1)
[2020-12-23 11:26] LABS: Vitamin D,25 Hydroxy 41.8 ng/mL
[2020-12-23 11:43] LABS: AST(SGOT) 25 U/L (15-37); Alanine Aminotransfer ALT/SGPT 23 U/L (13-56); Albumin, Serum 3.8 g/dL (3.2-5.0); Alkaline Phosphatase 105 U/L (45-117); Anion Gap 8 (5-15); BUN 13 mg/dL (7-18); BUN/Creat Ratio 15.3 RATIO (10-20); Calcium,Total 9.1 mg/dL (8.5-10.1); Chloride 103 mmol/L (98-107); Creatinine, Serum 0.85 mg/dL (0.55-1.02); EST Glomerular Filtration Rate 69 mL/min (>60); Est Glom Filt Rate - Afr Amer 83 mL/min (>60); Glucose 89 mg/dL (74-106); Potassium 4.1 mmol/L (3.5-5.1); Protein, Total 7.8 g/dL (6.4-8.2); Sodium Level 139 mmol/L (136-145)
== END ==
PROVIDERS: PCP Family Medicine; Referring Provider Internal Medicine Endocrinology, Diabetes & Metabolism; Visit Provider Internal Medicine Endocrinology, Diabetes & Metabolism
DX: E21.0 Primary hyperparathyroidism (principal); M85.89 Other specified disorders of bone density and structure, multiple sites; E55.9 Vitamin D deficiency, unspecified
CPT/HCPCS: 36415; 80053; 82306; 83970

== ENCOUNTER → 2020-12-25 17:01 | Outpatient (CLI) | payer MEDICARE, OTHER, BC, SELFPAY ==
--- NOTE | 2020-12-25 17:10 | RAD_ITS ---
EXAM: XR RIGHT HUMERUS, 2 OR MORE VIEWS CLINICAL INDICATION: ARM CONTUSION TECHNIQUE: Frontal and lateral views of the right humerus. This report was created using [employer] report generation technology. COMPARISON: None. FINDINGS: BONES/JOINTS: There is periarticular soft tissue calcification of the humerus consistent with a calcific tendinitis. No acute fracture. No subluxation. Normal alignment. Preservation of the joint space. No sclerotic or destructive changes observed. SOFT TISSUES: Unremarkable. No soft tissue swelling or gas. No radiopaque foreign body. RAD/Humerus min 2 Views IMPRESSION: There is periarticular soft tissue calcification of the humerus consistent with a calcific tendinitis. Electronically Signed: Mauricio Nagy MD at 18:47 EST , Service support ,
--- NOTE | 2020-12-25 17:10 | RAD_ITS ---
STUDY: XR Shoulder Min 2 Views REASON FOR EXAM: Female, 80 years old. PAIN ARM PAIN S/P FALL ON DECK TECHNIQUE: XR Shoulder Min 2 Views COMPARISON: None. FINDINGS: Normal glenohumeral articulation. There is degenerative arthrosis of the acromioclavicular joint without inferior osseous spur formation. Normal acromion. Normal humeral head and visualized proximal humerus. There is periarticular soft tissue calcification consistent with a calcific tendinitis. Normal visualized pulmonary apex. RAD/Shoulder min 2 Views IMPRESSION: There is periarticular soft tissue calcification of the humerus consistent with a calcific tendinitis. Electronically Signed: Mauricio Nagy MD at 18:48 EST , Service support ,
== END ==
PROVIDERS: PCP Family Medicine; Referring Provider Family Medicine; Visit Provider Family Medicine
DX: S40.021A Contusion of right upper arm, initial encounter (principal)
CPT/HCPCS: 73030; 73060

== ENCOUNTER 2020-12-31 10:57 | Outpatient (RCR) | payer MEDICARE, OTHER, BC, SELFPAY ==
--- NOTE | 2020-12-31 11:46 | HP.PTEVAL_ITS ---
Patient's Visit Information JERMAIN JENKINS is a 80 year old F referred to Physical Therapy by Dr. Blanca Cruz MD with a diagnosis of R shoulder strain. Date of Evaluation: 12/31/20 Physical Therapist: Roberto Carlos Sim, HENRYT, OCS, CSCS - Visit Plan Frequency: 2x /Week Duration: 4-6 Weeks Plan: 2x/week for 3-6 weeks for... 1. STM to R supra muscle and CFM as needed. Also to [place] R an into supra/infra belly. 2. ROM and stretching R shoulder. 3. strengthening R RC and postural muscles to HEP - Subjective Fell and hurt R shoulder 2 weeks ago. Was walking dog and slipped on ice when dog pulled on leash. Balance is otherwise good. Landed on R arm and shoulder hurt right away. Took tylenol. Did not get better and went to [facility] who x rayed it and not broken. She sent her for PT. No other treatments. That was a week ago. She is 75% better since then. Lifting out to side is painful, comfortable at rest. Sleep is interrupted in the past but not recently. Wakes up if lies on it. Basic ADLs are all getting done. activities are painful overhead but she still does it. Is R handed. 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 - Pain R shoulder Pain Intensity (Out of 10): 0 Pain Intensity Range: 0, 8 Comment: lifitnoreen hurts out to side - Objective Walks well and I, Trasnfers I, steps reciprocal without rail. cervical AROM WFL and without pain. Scap aROm slight discomfort right but full and symmetrical. Posture is forward head and protracted scap B. Tender to palpation in R supraspinatus area. reflexes 2/3 bi and tri. Sensation UE WNL to gross light touch. Strength 4/5 throughout UE B without asymmetries but painful with R ext rotation, flexion, abd and empty can resisted. AROM R shoulder painful at end of flexion, abd and ext rotation and IR but full motion. -sulcus. -ext rot lag test. - drop arm. slight + HK and neer R. - Balance/Special Test Scores Functional Gait Assessment Score: 29 % Disability: 3.3400 Quick DASH Score: 15.9075 - Goals Goal 1:: Sleep all night without interruption due to pain x 1 week. Goal Time Frame: 4-6 Weeks Goal 2:: Pain 0/10 and 99% better overall Goal Time Frame: 4-6 Weeks Goal 3:: I appropiate HEP to manage activity pain. Goal Time Frame: 4-6 Weeks Goal 4:: Quick DASH score < 14 Goal Time Frame: 4-6 Weeks - Rehabilitation Potential Physical Therapy Diagnosis: R shoulder pain from fall. Rehabilitation Potential: Good - Anticipated Interventions Patient/Client Instruction: Educate patient on: Condition, Plan of Care For the Purpose of:: To decrease pain, To decrease swelling/inflammation, To improve muscle performance and motor function Therapeutic Exercise to Include: Strength training, Postural training, Flexibilty training, Passive ROM, Active ROM, Scapular Strength/Stabilization For the Purpose of:: To decrease pain, To increase ROM, To improve muscle performance and motor function, To increase tolerance to activity/condition/position, To improve ability of physical actions for home/community/work/leisure Manual Therapy Techniques to Include: Passive ROM, Soft tissue mobilization For the Purpose of:: To decrease pain, To decrease swelling/inflammation Thank you for the opportunity to evaluate your patient. For Medicare and Medicare HMO plans, please review the plan of care and approve it. It will need to be FAXED BACK to us at [phone] for Medicare purposes. For Medicare only, by signing this I certify the plan of care. Please let me know if there are questions or concerns regarding this plan of care. Physician Signature:___ Date:
--- NOTE | 2021-01-26 13:17 | HP.PTDCNRP_ITS ---
JERAMIN JENKINS was seen in my office for initial evaluation on 12/31/20. The following Plan of Care was established for this patient: Initial Frequency: 2x /Week Initial Duration: 4-6 Weeks Patient/Client Instruction: Educate patient on: Condition, Plan of Care For the Purpose of:: To decrease pain, To decrease swelling/inflammation, To improve muscle performance and motor function Therapeutic Exercise to Include: Strength training, Postural training, Fl exibilty training, Passive ROM, Active ROM, Scapular Strength/Stabilization For the Purpose of:: To decrease pain, To increase ROM, To improve muscle performance and motor function, To increase tolerance to activity/condition/position, To improve ability of physical actions for home/community/work/leisure Manual Therapy Techniques to Include: Passive ROM, Soft tissue mobilization For the Purpose of:: To decrease pain, To decrease swelling/inflammation This patient was last seen in our office 12/31/20. Pertinent comments regarding their Physical therapy will appear below: Pt seen for initial evalution and POC established. Pt did not attend any further visits and eventually cancelled them all due to being in hospice. Will discontinue from my care at her request. At this point I will be discontinuing this patient from physical therapy. I would be happy to see this patient again in the future if found appropriate by the physician. Thank you! Roberto Carlos Sim, DPT, OCS, CSCS Balance/Gait/Functional tests - Balance/Special Test Scores Functional Gait Assessment Score: 29 % Disability: 3.3400 Quick DASH Score: 15.9075
== END 2020-12-31 19:00 | disposition home or self-care (01) ==
LOC: PT 10:57
PROVIDERS: PCP Family Medicine; Referring Provider Family Medicine; Visit Provider Family Medicine
DX: S46.911D Strain of unspecified muscle, fascia and tendon at shoulder and upper arm level, right arm, subsequent encounter (principal)
CPT/HCPCS: 97110; 97161

== ENCOUNTER 2021-03-04 09:39 | Outpatient (CLI) | payer MEDICARE, BC, SELFPAY | END 2021-03-04 23:59 | disposition short-term general hospital (02) | LOC: LABSPEC 09:41 | PROVIDERS: PCP Family Medicine; Referring Provider Physician Assistant; Visit Provider Physician Assistant | DX: Z20.822 Contact with and (suspected) exposure to COVID-19 (principal) | CPT/HCPCS: 87635; U0003; U0005 ==

== ENCOUNTER 2021-03-17 12:09 | Outpatient (CLI) | payer MEDICARE, BC, SELFPAY | END 2021-03-17 23:59 | disposition short-term general hospital (02) | LOC: LABSPEC 12:25 | PROVIDERS: PCP Family Medicine; Referring Provider Physician Assistant; Visit Provider Physician Assistant | DX: Z20.822 Contact with and (suspected) exposure to COVID-19 (principal) | CPT/HCPCS: 87635; U0003; U0005 ==

== ENCOUNTER 2021-04-13 12:23 | Outpatient (CLI) | payer MEDICARE, BC, SELFPAY ==
--- NOTE | 2021-04-13 12:25 | US_ITS ---
STUDY: THYROID ULTRASOUND REASON FOR EXAM: Female, 80 years old. Known nodules TECHNIQUE: Ultrasound evaluation of the thyroid was performed with real-time and static figueroa-scale imaging. COMPARISON: None. FINDINGS: RIGHT LOBE: The right lobe of the thyroid gland measures 4.0 x 1.3 x 1.4 cm. There is a heterogeneous echotexture. Stable solid/cystic complex nodules. Larger measures 0.8 cm, smaller 0.4 cm. No change since the previous study LEFT LOBE: The left lobe of the thyroid gland measures 4.1 x 1.4 x 1.1 cm. There is a heterogeneous echotexture. There is a solid isoechoic 0.4 cm nodule, a 0.4 similar cyst, and a complex solid/cystic 0.7 cm nodule. All are also stable and unchanged. ISTHMUS: The isthmus measures 0.2 cm. The regional lymph nodes are normal. US/Thyroid IMPRESSION: Normal size heterogeneous thyroid gland with stable bilateral nodules. No change since the previous study, no specific follow-up needed Electronically Signed: Rory Hamilton MD at 17:22 EST ,
== END 2021-04-13 23:59 | disposition home or self-care (01) ==
LOC: US 12:24
PROVIDERS: PCP Family Medicine; Referring Provider Internal Medicine Endocrinology, Diabetes & Metabolism; Visit Provider Internal Medicine Endocrinology, Diabetes & Metabolism
DX: E04.2 Nontoxic multinodular goiter (principal)
CPT/HCPCS: 76536

== ENCOUNTER 2021-04-14 07:54 | Outpatient (CLI) | payer MEDICARE, BC, SELFPAY ==
[2021-04-14 09:02] LABS: Albumin, Serum 3.5 g/dL (3.2-5.0); BUN 18 mg/dL (7-18); BUN/Creat Ratio 19.5 RATIO (10-20); Calcium,Total 9.3 mg/dL (8.5-10.1); Chloride 103 mmol/L (98-107); Creatinine, Serum 0.92 mg/dL (0.55-1.02); EST Glomerular Filtration Rate 62 mL/min (>60); Est Glom Filt Rate - Afr Amer 75 mL/min (>60); Glucose 107 mg/dL (74-106); Phosphorus 3.5 mg/dL (2.5-4.9); Potassium 4.2 mmol/L (3.5-5.1); Sodium Level 139 mmol/L (136-145)
[2021-04-14 09:24] LABS: PTHIN 83.1 pg/mL (18.4-80.1)
[2021-04-14 09:28] LABS: Vitamin D,25 Hydroxy 32.7 ng/mL
== END 2021-04-14 23:59 | disposition home or self-care (01) ==
LOC: LAB 07:56
PROVIDERS: PCP Family Medicine; Referring Provider Internal Medicine Endocrinology, Diabetes & Metabolism; Visit Provider Internal Medicine Endocrinology, Diabetes & Metabolism
DX: M85.89 Other specified disorders of bone density and structure, multiple sites (principal); E55.9 Vitamin D deficiency, unspecified
CPT/HCPCS: 36415; 80069; 82306; 83970

== ENCOUNTER 2021-06-16 13:20 | Emergency (ER) | payer MEDICARE, BC, SELFPAY ==
[2021-06-16 13:21] VITALS: BP 108/95; PULSE 91; RESP 16; TEMP 35.9; O2SAT 100; BMI 27.8
--- NOTE | 2021-06-16 13:56 | VDLE_ITS ---
Reason For Study: Pain RIGHT LEFT GSV is normal. CFV is compressible, spontaneous, phasic, CFV is compressible, spontaneous, phasic, competent, and demonstrates normal competent and demonstrates normal augmentation. augmentation. FV is compressible, spontaneous, phasic, competent and demonstrates normal augmentation. POP V is compressible, spontaneous, phasic, competent and demonstrates normal augmentation. PTV is compressible. Acute deep vein thrombosis is noted in the right T/P Trunk distal, Peroneal vein, and Soleus vein. Procedure This is a venous duplex using B-mode, color flow and spectral Doppler. Exam performed portable in ED. A preliminary report was called and/or faxed to ED. VL/Venous Duplex US, Unilateral Interpretation Summary Acute deep venous thrombosis right tibioperoneal trunk, peroneal, soleus veins. Patent and compressible right great saphenous vein Normal flow patterns left common femoral vein Ordering Physician: Alex Neumann Referring Physician: Blanca Cruz M.D. Performed By: Emily Pedro RVT
--- NOTE | 2021-06-16 13:58 | ED.VIS.LOWEX ---
HPI History of Present Illness Chief Complaint: Lower Extremity Injury Informant: patient Narrative Narrative: Presents with nontraumatic right lower leg pain into her knee and up to her hip. Pain behind the knee. This been going on for 5 days. Reports was doing yard work for 2 hours prior. Denies any acute injuries. 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 She has had multiple knee scopes since then. Reports since February has had 3 procedures with tumor removals and biopsy of her abdomen. Denies chest pains or shortness of breath. Denies history of blood clots. To 3 times a day with no relief. She has had previous hydrocodone and Percocet in the past that she is tolerated however states hydrocodone typically does not work. Denies any back pain. Records also note she is on Eliquis twice a day as well as flecainide history of atrial fibrillation. However I discussed with the patient she never started Eliquis. 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 Rodriguez. She has this at home. 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 Strain of foot, left SVT (supraventricular tachycardia) Wears dentures Home Medications sertraline 150 mg PO DAILY 01/31/15 [History Last Taken 09/25/20 07:00] cholecalciferol (vitamin D3) 2,000 unit PO DAILY 07/28/15 [History Last Taken 09/24/20] pyridoxine (vitamin B6) 50 mg tablet 50 mg PO DAILY 05/15/20 [History Last Taken 09/24/20] amlodipine 5 mg tablet 5 mg PO DAILY #90 tablet 08/24/20 [Rx Last Taken 09/25/20 07:00] mecobalamin (vitamin B12) [B12 Active] 1,000 mcg PO DAILY 09/04/20 [History Last Taken Unknown] flecainide 100 mg tablet 100 mg PO BID #180 tab 10/26/20 [Rx Last Taken Unknown] apixaban 5 mg tablet 5 mg PO BID #180 tab 02/25/21 [Rx Last Taken Unknown] atorvastatin 20 mg tablet 10 mg PO DAILY tab 04/01/21 [History Last Taken Unknown] coenzyme Q10 100 mg capsule 100 mg PO DAILY 04/01/21 [History Last Taken Unknown] glucosamine-chondroitin 250 mg-200 mg tablet 2 tab PO DAILY tab 04/01/21 [History Last Taken Unknown] magnesium 250 mg tablet 250 mg PO DAILY 04/01/21 [History Last Taken Unknown] octreotide,microspheres 20 mg intramuscular susp, extended release 20 mg IM Q4W 04/01/21 [History Last Taken Unknown] turmeric root extract 500 mg capsule 500 mg PO DAILY 04/01/21 [History Last Taken Unknown] elderberry fruit 200 mg capsule 400 mg PO DAILY cap 05/21/21 [History Last Taken Unknown] potassium chloride 20 mEq tablet,extended release(part/cryst) 20 meq PO DAILY tab 05/21/21 [History Last Taken Unknown] risedronate 35 mg tablet 35 mg PO QWEEK tab 05/21/21 [History Last Taken Unknown] lisinopril 40 mg tablet 40 mg PO DAILY #90 tablet 05/27/21 [Rx Last Taken Unknown] metoprolol succinate 100 mg tablet,extended release 24 hr 100 mg PO DAILY #90 tab 05/27/21 [Rx Last Taken Unknown] oxycodone-acetaminophen [Percocet] 1 tab PO Q6H PRN 3 Days #12 tab 06/16/21 [Rx Last Taken Unknown] Allergy/AdvReac Type Severity Reaction Status Date / Time Iodinated Contrast Media Allergy Severe Anaphylaxis Verified 06/16/21 13:21 [Iodinated Contrast Media - IV Dye] Penicillins [PCN] AdvReac Intermediate Hives Verified 06/16/21 13:21 Family History Father CAD (coronary artery disease) Heart disease Hypertension Mother Hypertension Brother Hypertension Sister Hypertension Daughter Thyroid cancer Surgical History History of appendectomy History of breast lump removal History of cataract surgery History of colonoscopy (02/2018) History of hysterectomy History of left heart catheterization (06/25/18) History of parathyroidectomy (~2013) History of surgery on left wrist Hx of arthroscopic knee surgery Hx of cholecystectomy Hx of colonoscopy Social History Smoking Status: Never smoker second hand exposure: No alcohol intake: never substance use type: does not use caffeine: Yes (1) what type of physical activity do you participate in: none frequency: does not exercise elizabeth/scientology: Pres[employer] seatbelt use: always do you feel safe at home: Yes ROS ROS ED Constitutional Constitutional ED: Denies chills, fever(s) or sweats Eyes Eyes: Denies change in vision ENT ENT ED: Denies dysphagia or sore throat Cardiovascular Cardiovascular: Denies chest pain, leg edema, palpitations or racing heartbeat Respiratory/Chest Respiratory/Chest: Denies cough, dyspnea or dyspnea on exertion Gastrointestinal Gastrointestinal: Denies abdominal pain, diarrhea, nausea or vomiting Genitourinary Genitourinary ED: Denies dysuria, hematuria or urinary frequency Musculoskeletal Musculoskeletal: Reports other Details: Pain right leg rating up to her hips. ; Denies back pain, extremity pain or neck pain Integumentary Denies rash or wounds Neurologic Neurologic: Denies headache(s), paresthesias or weakness EXAM Physical Exam Const Vital Signs: 06/16/21 13:21 Temperature 96.7 F L Temperature Source Temporal Pulse Rate 91 Respiratory Rate 16 Blood Pressure 108/95 H Blood Pressure Mean 99 Pulse Ox 100 Oxygen Delivery Method Room Air Positive well nourished and well developed Constitutional Narrative: Uncomfortable nontoxic General Appearance ED: well developed HEENT Reports moist mucous membranes normocephalic and atraumatic Eyes PERRL, EOMs intact bilaterally and conjunctivae normal General Eye ED: Yes normal appearance of both eyes Neck no lymphadenopathy and supple General: Negative for tenderness Chest Wall Chest: Negative for tenderness Resp normal respiratory effort and normal air movement Effort and Inspection: symmetric chest movement; Negative for respiratory distress Cardio regular rate, regular rhythm and no murmurs Peripheral Pulses: pulses 2+ throughout GI normal to inspection, nondistended, normoactive bowel sounds and non-tender Palpation: Negative for guarding or rebound tenderness present Back/Spine no CVA tenderness and no thoracic nor lumbar tenderness Extremity Extremity Narrative: Right lower extremity: Negative logroll. Knee extensor mechanism intact. Pain to palpation anterior mid tibia with no ecchymosis. Tender posterior knee. Negative varus and valgus stress at the knee. Tenderness along the lateral upper thigh and hip. General Extremety ED: Negative for edema or tenderness General Extremity: Negative for edema Neuro oriented x3 and no sensory deficits noted Sensorium / Orientation: awake and alert Skin no rashes or lesions noted and no wounds MDM MDM MDM Narrative Medical decision making narrative: X-ray right femur and right tib-fib 2 views reviewed by myself and read by radiology shows osteoarthritis of the knee no other acute findings. Ultrasound right lower extremities acute DVT of the TP distal vein, peroneal, subcutaneous. She is tender along the peroneus vein region. Discussed with patient she will start Eliquis. She will avoid NSAIDs. She use Tylenol, prescription of Percocet to use as needed she is given oxycodone in the ED. She has a walker at home to use as needed. She request follow-up with orthopedics for which I gave Dr. Cole for which she requests. Patient will discuss with her oncology team her diagnosis and starting her Eliquis. All questions answered. Radiography Diagnostic Testing: Clinical Impression(s) from Imaging Studies Femur X-Ray 06/16/21 14:05 IMPRESSION: Tricompartmental osteoarthritis of the knee joint. Electronically Signed: Sean Mckeon MD at 14:46 EDT , Tibia/Fibula X-Ray 06/16/21 14:05 IMPRESSION: No acute abnormality is seen. Tricompartmental osteoarthritis of the knee joint. Electronically Signed: Sean Mckeon MD at 14:46 EDT , Discharge Plan Triage Chief Complaint: Lower Extremity Injury ED Provider: Alex Neumann Dx/Rx/DC Orders Clinical Impression: Acute deep vein thrombosis (DVT) of distal end of right lower extremity, Acute pain of right lower extremity Instructions: DVT Complications, DVT Dc Prescriptions: New oxycodone-acetaminophen [Percocet] 5-325 mg tablet 1 tab PO Q6H PRN (Reason: pain) 3 Days Qty: 12 RF: 0 No Action pyridoxine (vitamin B6) 50 mg tablet 50 mg PO DAILY RF: 0 atorvastatin 20 mg tablet 10 mg PO DAILY RF: 0 magnesium 250 mg tablet 250 mg PO DAILY RF: 0 coenzyme Q10 [Co Q-10] 100 mg capsule 100 mg PO DAILY RF: 0 turmeric root extract 500 mg capsule 500 mg PO DAILY RF: 0 glucosamine-chondroitin [Osteo Bi-Flex] 250-200 mg tablet 2 tab PO DAILY RF: 0 Sandostatin LAR Dep[place] 20 mg suspension,extended rel recon 20 mg IM Q4W RF: 0 potassium chloride 20 mEq tablet,ER particles/crystals 20 meq PO DAILY RF: 0 risedronate 35 mg tablet 35 mg PO QWEEK RF: 0 elderberry fruit 200 mg capsule 400 mg PO DAILY RF: 0 sertraline 100 MG tablet 150 mg PO DAILY RF: 0 cholecalciferol (vitamin D3) 1,000 UNIT tablet 2,000 unit PO DAILY RF: 0 B12 Active 1,000 mcg Tablet,Chewable 1,000 mcg PO DAILY RF: 0 amlodipine 5 mg tablet 5 mg PO DAILY Qty: 90 RF: 3 flecainide 100 mg tablet 100 mg PO BID Qty: 180 RF: 3 Eliquis 5 mg tablet 5 mg PO BID Qty: 180 RF: 4 Hold Instructions: surgery lisinopril 40 mg tablet 40 mg PO DAILY Qty: 90 RF: 3 metoprolol succinate 100 mg tablet extended release 24 hr 100 mg PO DAILY Qty: 90 RF: 3 Primary Care Provider: Blanca Cruz Referrals: Blanca Cruz MD [Primary Care Provider] - Layton Cole MD [STAFF PHYSICIAN] - 1 Week Activity Restrictions/Additional Instructions: X-ray of your right femur and right tib-fib notes osteoarthritis of the knee. Ultrasound of your right lower extremity notes acute DVT of the right TP trunk distal, peroneal vein, and soleus vein. No DVT of her popliteal or femoral veins. Your pain is along the peroneal vein. Start your Eliquis at home twice a day. Take pain medicines as prescribed avoid NSAIDs. Discussed with your heme/oncology team your diagnosis. Disposition Disposition: Home, Self Care Discharge Date/Time: 06/16/21 15:24
[2021-06-16] MEDS: oxyCODONE 5 MG Tablet PO (14:03)
--- NOTE | 2021-06-16 14:05 | RAD_ITS ---
STUDY: X-RAY - RIGHT FEMUR REASON FOR STUDY: Female, 80 years old. Pain TECHNIQUE: 4 view(s) of the femur. COMPARISON: None. FINDINGS: Normal visualized femur. Normal visualized soft tissue structure. Tricompartmental osteoarthritis of the knee joint. RAD/Femur Min 2 Views IMPRESSION: Tricompartmental osteoarthritis of the knee joint. Electronically Signed: Sean Mckeon MD at 14:46 EDT ,
--- NOTE | 2021-06-16 14:05 | RAD_ITS ---
STUDY: X-RAY - RIGHT TIBIA AND FIBULA REASON FOR EXAM: Female, 80 years old. Pain TECHNIQUE: 2 view(s) of the tibia and fibula were obtained. COMPARISON: None. FINDINGS: Normal visualized tibia. Normal visualized fibula. Osteoarthritis of the knee joint. The soft tissue structures are unremarkable. RAD/Tibia & Fibula 2 Views IMPRESSION: No acute abnormality is seen. Tricompartmental osteoarthritis of the knee joint. Electronically Signed: Sean Mckeon MD at 14:46 EDT ,
== END 2021-06-16 15:24 | disposition home or self-care (01) ==
PROVIDERS: Emergency Provider Emergency Medicine; PCP Family Medicine; Visit Provider Emergency Medicine
DX: I82.4Z1 Acute embolism and thrombosis of unspecified deep veins of right distal lower extremity (principal); M19.90 Unspecified osteoarthritis, unspecified site; J45.909 Unspecified asthma, uncomplicated; F32.A Depression, unspecified; I10 Essential (primary) hypertension; Z87.19 Personal history of other diseases of the digestive system; E78.5 Hyperlipidemia, unspecified; Z85.038 Personal history of other malignant neoplasm of large intestine; Z79.899 Other long term (current) drug therapy; M17.11 Unilateral primary osteoarthritis, right knee; Z85.79 Personal history of other malignant neoplasms of lymphoid, hematopoietic and related tissues
CPT/HCPCS: 73552; 73590; 93971; 99283

== ENCOUNTER 2021-06-19 11:17 | Emergency (ER) | payer MEDICARE, OTHER, BC, SELFPAY ==
[2021-06-19 11:18] VITALS: BP 143/71; PULSE 99; RESP 16; TEMP 36.2; O2SAT 99; BMI 27.8
--- NOTE | 2021-06-19 11:45 | CT_ITS ---
STUDY: CTA CHEST REASON FOR EXAM: Female, 80 years old. chest pain, dvt d-dimer RADIATION DOSAGE (If Supplied By Facility): CTDIvol = ( 10.32 ) mGy, DLP = ( 924.30 ) mGycm TECHNIQUE: The examination was performed with the intravenous administration of IV 100mL Isovue-370. Post-processing of the angiographic images was performed, with multiplanar reformation and 3D reconstruction. Individualized dose optimization techniques were used for this CT. COMPARISON: None. FINDINGS: Normal enhancement of the main pulmonary artery and right and left pulmonary arteries. Normal enhancement of the bilateral peripheral pulmonary arteries. There is no demonstrated pulmonary embolism. Normal thoracic aorta and visualized great vessels. There is no demonstrated aortic dissection. Normal heart and pericardium. Normal mediastinum. Normal hilar regions. Normal visualized trachea and bronchi. The lungs are well expanded. Mild bilateral apical scarring. Tiny bilateral pleural effusions with some bibasilar atelectasis. Normal chest wall structures. Normal osseous structures. Multiple masses of decreased attenuation within the liver including a 7 cm lesion in the posterior segment the right lobe worrisome for multifocal hepatocellular carcinoma or metastatic disease. CT/CTA Chest W/WO Contrast IMPRESSION: Normal CTA chest examination, without a demonstrated pulmonary embolism or arterial dissection. Electronically Signed: José Duarte MD at 13:57 EDT ,
--- NOTE | 2021-06-19 11:47 | CT_ITS ---
STUDY: CT ABDOMEN AND PELVIS WITH CONTRAST REASON FOR EXAM: Female, 80 years old. ruq pain RADIATION DOSAGE (If Supplied By Facility): CTDIvol = ( 10.32 ) mGy, DLP = ( 924.30 ) mGycm TECHNIQUE: Transaxial images were obtained from the dome of the diaphragm to the symphysis pubis without oral contrast. IV 100mL Isovue-370 was administered. Sagittal and coronal images were reconstructed. Individualized dose optimization techniques were used for this CT. COMPARISON: None. FINDINGS: Tiny bilateral pleural effusions with bibasilar atelectasis. The visualized portions of the heart are within normal limits. Multiple lesions of decreased attenuation within the liver worrisome for metastatic disease including a 7 cm lesion within the posterior segment the right lobe of the liver. There is non-visualization of the gallbladder, which may be secondary to either contraction or a prior cholecystectomy. Normal spleen. Normal pancreas. Normal bilateral adrenal glands. Normal right kidney. Normal left kidney. Normal visualized stomach. Small diverticulum of the second portion the duodenum. Status post right hemicolectomy. There is diffuse atherosclerotic calcification of the abdominal aorta, without a demonstrated aneurysm. Normal inferior vena cava. Normal retroperitoneum. Normal urinary bladder. Normal abdominal wall. Moderate levoscoliosis of the lumbar spine with degenerative disc disease. CT/Abdomen/Pelvis W IV Cont ONLY IMPRESSION: No acute abnormality. 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 Electronically Signed: José Duarte MD at 14:14 EDT ,
--- NOTE | 2021-06-19 11:48 | EKG12_ITS ---
Test Reason : ABDOMINAL PAIN Blood Pressure : / mmHG Vent. Rate : 091 BPM Atrial Rate : 091 BPM P-R Int : 176 ms QRS Dur : 098 ms QT Int : 366 ms P-R-T Axes : 035 -09 036 degrees QTc Int : 450 ms Normal sinus rhythm Normal ECG Confirmed by JAKY VENTURA, ORESTES ([id number]), editor farm journal SYLVIA GELLER ([id number]) on 06/21/2021 1:27:20 PM Referred By: BB Confirmed By:ORESTES STARKEY MD
--- NOTE | 2021-06-19 11:50 | ED.VIS.GI ---
HPI HPI - GI History of Present Illness Chief Complaint: Abd Pain Informant: patient and family Abdominal Pain/Flank Pain Onset: Days (3) Context: Gradual Onset Timing: Continuous (in severity; not colicky) Quality: - (pain) Location: RUQ Current Severity: Severe Maximum Severity: Severe Worsened by: - (deep breathing); Not Worsened By Food Relieved by: Nothing Nausea/Vomiting/Emesis GI Symptom: Negative for Nausea and Vomiting Diarrhea/Melena/Hematochezia GI Symptom: Positive for - (last BM this AM, normal, did not affect pain); Negative for Diarrhea, Melena and Hematochezia Associated Symptoms Associated Symptoms: Negative for Dysuria, Frequency, Hematuria and Urgency Narrative Narrative: Patient was diagnosed with a DVT for 4 days ago, she states she started Eliquis that day and during the same day she started having this pain in her right upper quadrant, radiates into her right low-mid back/flank, somewhat down toward her groin, not colicky, has been progressively getting worse. Not associated with eating. She recently has had multiple surgeries involving a large tumor in her abdomen that was causing a bowel obstruction, she had some bowel resected, subsequently she had a surgery on the left lobe of her liver, followed by the right lobe of her liver and that with the last surgery done about 3 or 4 weeks ago, most of this done at [facility]. Then she developed this a DVT in her left lower extremity. She is having normal bowel movements without any blood or melena. No nausea or vomiting associated with this, no fevers. She states it hurts more to breathe, and then the severity of the pain in turn makes her short of breath transiently, but in general she has had no dyspnea or other pains in her chest. No coughing. No history of a PE prior to this. 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 Strain of foot, left SVT (supraventricular tachycardia) Wears dentures Home Medications sertraline 150 mg PO DAILY 01/31/15 [History Last Taken 09/25/20 07:00] cholecalciferol (vitamin D3) 2,000 unit PO DAILY 07/28/15 [History Last Taken 09/24/20] pyridoxine (vitamin B6) 50 mg tablet 50 mg PO DAILY 05/15/20 [History Last Taken 09/24/20] amlodipine 5 mg tablet 5 mg PO DAILY #90 tablet 08/24/20 [Rx Last Taken 09/25/20 07:00] mecobalamin (vitamin B12) [B12 Active] 1,000 mcg PO DAILY 09/04/20 [History Last Taken Unknown] flecainide 100 mg tablet 100 mg PO BID #180 tab 10/26/20 [Rx Last Taken Unknown] apixaban 5 mg tablet 5 mg PO BID #180 tab 02/25/21 [Rx Last Taken Unknown] atorvastatin 20 mg tablet 10 mg PO DAILY tab 04/01/21 [History Last Taken Unknown] coenzyme Q10 100 mg capsule 100 mg PO DAILY 04/01/21 [History Last Taken Unknown] glucosamine-chondroitin 250 mg-200 mg tablet 2 tab PO DAILY tab 04/01/21 [History Last Taken Unknown] magnesium 250 mg tablet 250 mg PO DAILY 04/01/21 [History Last Taken Unknown] octreotide,microspheres 20 mg intramuscular susp, extended release 20 mg IM Q4W 04/01/21 [History Last Taken Unknown] turmeric root extract 500 mg capsule 500 mg PO DAILY 04/01/21 [History Last Taken Unknown] elderberry fruit 200 mg capsule 400 mg PO DAILY cap 05/21/21 [History Last Taken Unknown] potassium chloride 20 mEq tablet,extended release(part/cryst) 20 meq PO DAILY tab 05/21/21 [History Last Taken Unknown] risedronate 35 mg tablet 35 mg PO QWEEK tab 05/21/21 [History Last Taken Unknown] lisinopril 40 mg tablet 40 mg PO DAILY #90 tablet 05/27/21 [Rx Last Taken Unknown] metoprolol succinate 100 mg tablet,extended release 24 hr 100 mg PO DAILY #90 tab 05/27/21 [Rx Last Taken Unknown] oxycodone-acetaminophen [Percocet] 1 tab PO Q6H PRN 3 Days #12 tab 06/16/21 [Rx Last Taken Unknown] oxycodone-acetaminophen 1 tab PO Q4H PRN 3 Days #18 tablet 06/19/21 [Rx Last Taken Unknown] Allergy/AdvReac Type Severity Reaction Status Date / Time Iodinated Contrast Media Allergy Severe Anaphylaxis Verified 06/19/21 11:20 [Iodinated Contrast Media - IV Dye] Penicillins [PCN] AdvReac Intermediate Hives Verified 06/19/21 11:20 Family History Father CAD (coronary artery disease) Heart disease Hypertension Mother Hypertension Brother Hypertension Sister Hypertension Daughter Thyroid cancer Surgical History History of appendectomy History of breast lump removal History of cataract surgery History of colonoscopy (02/2018) History of hysterectomy History of left heart catheterization (06/25/18) History of parathyroidectomy (~2013) History of surgery on left wrist Hx of arthroscopic knee surgery Hx of cholecystectomy Hx of colonoscopy Social History Smoking Status: Never smoker second hand exposure: No alcohol intake: never substance use type: does not use caffeine: Yes (1) what type of physical activity do you participate in: none frequency: does not exercise elizabeth/taoist: Pres[employer] seatbelt use: always do you feel safe at home: Yes ROS ROS ED Constitutional Constitutional ED: Denies chills or fever(s) Eyes Eyes: Denies change in vision or diplopia ENT ENT ED: Denies rhinorrhea or sore throat Cardiovascular Cardiovascular: Reports as per HPI; Denies chest pain or palpitations Respiratory/Chest Respiratory/Chest: Reports as per HPI; Denies cough or dyspnea Gastrointestinal Gastrointestinal: Reports as per HPI and abdominal pain; Denies diarrhea, nausea or vomiting Genitourinary Genitourinary ED: Denies dysuria or hematuria Musculoskeletal Musculoskeletal: Reports as per HPI and back pain; Denies neck pain Integumentary Denies abscess or rash Neurologic Neurologic: Denies headache(s), paresthesias or weakness Psychiatric Psychiatric: Denies anxiety or suicidal thoughts EXAM Physical Exam Const Vital Signs: 06/19/21 11:18 06/19/21 14:23 Temperature 97.2 F L Temperature Source Temporal Pulse Rate 99 80 Respiratory Rate 16 18 Blood Pressure 143/71 H 140/68 H Blood Pressure Mean 95 92 Pulse Ox 99 96 Oxygen Delivery Method Room Air Room Air Positive well nourished and well developed General Appearance ED: well developed and NAD HEENT Reports moist mucous membranes normocephalic and atraumatic Eyes PERRL and EOMs intact bilaterally Neck full ROM and supple Resp normal respiratory effort and clear to auscultation bilaterally Cardio regular rate, regular rhythm and no murmurs Rate: Negative for tachycardic GI non-distended GI Narrative: Very tender in the lateral aspect of the right upper quadrant subcostal. No rib bony tenderness. Normal inspection. No other areas of abdominal tenderness. Soft nondistended without guarding or rebound. Auscultation: normoactive bowel sounds Palpation: soft Back/Spine Back/Spine Narrative: Mild right CVA tenderness, negative on the left. Normal inspection. No midline bony tenderness. General Back: other FROM Extremity normal to inspection General Extremety ED: Negative for edema, pulses abnormal or tenderness General Extremity: Negative for edema or pulses abnormal Neuro oriented x3, CN's II-XII intact bilaterally and no sensory deficits noted Sensorium / Orientation: awake and alert Motor Exam: strength 5/5 throughout Skin no rashes or lesions noted and no wounds MDM MDM MDM Narrative Medical decision making narrative: Given the possibility of a lower lung pulmonary embolism, I obtained EKG and troponin, those are normal. She has pain in her right upper quadrant, and as above lower lung pathology are in the differential, and in order to obtain a reason for her pain, CT angiography of the lungs/chest in addition to CT of the abdomen/pelvis with IV contrast was obtained simultaneously, pretreating her for her known reaction to IV contrast, she states she does have a history of anaphylactic reaction but when she is pretreated with Benadryl, she does not react and does fine. She received our protocol which also includes Solu-Medrol. She underwent CT and had no aftereffects from the contrast. CT angiography of the chest and CT abdomen/pelvis with IV contrast negative for any acute. Her pain was treated. The rest of her work-up is unremarkable, her urine shows small amount of white cells this was sent for culture but I do not think it is the cause of her symptoms. On reevaluation there is a daughter there that was not initially, and she said that her surgeon told them that they cut off blood supply to 2 or the tumors in her liver and that when that tissue she would start having pain. She is indeed having pain in this area and that certainly could explain the pain she is experiencing now. She has been taking Percocet for, she is almost out of pills, and it is Monday. I am happy to write her a new prescription for pain medication and I advised following up closely with her surgeon and/your oncologist. I can reassure them that she indeed does not have pulmonary embolus in the area of her right lower lung, nor anywhere else. Lab Data Attestation: I reviewed the patient's lab results. Labs: Laboratory Results - last 24 hr 06/19/21 06/19/21 06/19/21 11:50 11:50 13:28 WBC 12.8 H RBC 3.98 L Hgb 10.7 L Hct 33.7 L MCV 84.7 MCH 26.9 L MCHC 31.8 L RDW Std Deviation 46.6 H RDW Coeff of Mehran 15.1 H Plt Count 354 MPV 9.8 Immature Gran % (Auto) 1.200 H Neut % (Auto) 80.2 H Lymph % (Auto) 8.4 L [place] % (Auto) 9.3 Eos % (Auto) 0.4 Baso % (Auto) 0.5 Absolute Neuts (auto) 10.3 H Absolute Lymphs (auto) 1.08 Nucleated RBC % 0 Sodium 136 Potassium 3.7 Chloride 102 Carbon Dioxide 29.0 Anion Gap 5 BUN 21 H Creatinine 0.68 Estim Creat Clear Calc 36.08 Est GFR (MDRD) Af Amer 107 Est GFR (MDRD) Non-Af 88 BUN/Creatinine Ratio 30.7 H Glucose 100 Calcium 9.2 Total Bilirubin 0.60 AST 140 H ALT 242 H Alkaline Phosphatase 189 H Troponin I High Sens < 3 L Total Protein 7.6 Albumin 2.8 L Globulin 4.8 H Albumin/Globulin Ratio 0.6 L Lipase 51 L Urine Color Yellow Urine Clarity Clear Urine pH 6.5 Ur Specific [place] 1.010 Urine Protein 30 H Urine Glucose (UA) Normal Urine Ketones Negative Urine Occult Blood 25 H Urine Nitrite Negative Urine Bilirubin Negative Urine Urobilinogen Normal Ur Leukocyte Esterase 100 H Urine RBC 0 SEEN Urine WBC 0-5 SEEN Ur Squamous Epith Cells 0-5 SEEN Urine Bacteria 0 SEEN Urine Mucus 0 SEEN Radiography Diagnostic Testing: Clinical Impression(s) from Imaging Studies Chest CTA 06/19/21 11:45 IMPRESSION: Normal CTA chest examination, without a demonstrated pulmonary embolism or arterial dissection. Electronically Signed: José Duarte MD at 13:57 EDT , Abdomen/Pelvis CT 06/19/21 11:47 IMPRESSION: No acute abnormality. 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 Electronically Signed: José Duarte MD at 14:14 EDT , Rhythm Strip Rhythm Strip: Sinus Rhythm Rate: 90 Ectopy: None EKG Initial EKG: Attestation: I personally reviewed and interpreted this EKG as follows: Interpretation: Sinus Rhythm and No Acute Injury Pattern (normal EKG. rate 91.) Discharge Plan Triage Chief Complaint: Abd Pain ED Provider: Jamie Reyes Dx/Rx/DC Orders Clinical Impression: Abdominal pain, acute, right upper quadrant, Liver metastases Instructions: Abdominal Pain Prescriptions: New oxycodone-acetaminophen [oxycodone-acetaminophen] 1 TABLET tablet 1 tab PO Q4H PRN (Reason: Pain) 3 Days Qty: 18 RF: 0 No Action pyridoxine (vitamin B6) 50 mg tablet 50 mg PO DAILY RF: 0 atorvastatin 20 mg tablet 10 mg PO DAILY RF: 0 magnesium 250 mg tablet 250 mg PO DAILY RF: 0 coenzyme Q10 [Co Q-10] 100 mg capsule 100 mg PO DAILY RF: 0 turmeric root extract 500 mg capsule 500 mg PO DAILY RF: 0 glucosamine-chondroitin [Osteo Bi-Flex] 250-200 mg tablet 2 tab PO DAILY RF: 0 Sandostatin [place] 20 mg suspension,extended rel recon 20 mg IM Q4W RF: 0 potassium chloride 20 mEq tablet,ER particles/crystals 20 meq PO DAILY RF: 0 risedronate 35 mg tablet 35 mg PO QWEEK RF: 0 elderberry fruit 200 mg capsule 400 mg PO DAILY RF: 0 sertraline 100 MG tablet 150 mg PO DAILY RF: 0 cholecalciferol (vitamin D3) 1,000 UNIT tablet 2,000 unit PO DAILY RF: 0 B12 Active 1,000 mcg Tablet,Chewable 1,000 mcg PO DAILY RF: 0 oxycodone-acetaminophen [Percocet] 5-325 mg tablet 1 tab PO Q6H PRN (Reason: pain) 3 Days Qty: 12 RF: 0 amlodipine 5 mg tablet 5 mg PO DAILY Qty: 90 RF: 3 flecainide 100 mg tablet 100 mg PO BID Qty: 180 RF: 3 Eliquis 5 mg tablet 5 mg PO BID Qty: 180 RF: 4 Hold Instructions: surgery lisinopril 40 mg tablet 40 mg PO DAILY Qty: 90 RF: 3 metoprolol succinate 100 mg tablet extended release 24 hr 100 mg PO DAILY Qty: 90 RF: 3 Primary Care Provider: Blanca Cruz Referrals: Blanca Cruz MD [Primary Care Provider] - 3-5 Days if not improving (And/or your surgeon, oncologist) Disposition Disposition: Home, Self Care
[2021-06-19] MEDS: Ondansetron 4 MG/2 ML Vial IV (11:57)
[2021-06-19] MEDS: Morphine 4 MG/ML Syringe IV ×2 (11:57→13:40)
[2021-06-19] MEDS: DiphenhydrAMINE 50 MG/ML Syringe 25 MG IV (11:58)
[2021-06-19] MEDS: MethylPREDNISolone 125 MG/2 ML Vial IV (11:58)
[2021-06-19 12:08] LABS: Absolute Lymphocyte Count 1.08 X10^3/uL (0.83-4.51); Absolute Neutrophil Count 10.3 X10^3/uL (2.0-7.7); Basophil# 0.06 X10^3/uL; Basophil% 0.5 % (0-1); Eosinophil# 0.05 X10^3/uL; Eosinophils% 0.4 % (0-5); Hematocrit 33.7 % (37-47); Hemoglobin 10.7 g/dL (12.0-15.0); Lymphocyte # 1.08 X10^3/ul (0.83-4.51); Lymphocyte % 8.4 % (19-41); Mean Corp Hgb Conc 31.8 g/dL (32-36); Mean Corpuscular Hgb 26.9 pg (27.0-32.0); Mean Corpuscular Volume 84.7 fL (81-99); Mean Platelet Vol. 9.8 fl (6.2-12.0); Monocyte# 1.19 X10^3/uL; Monocyte% 9.3 % (0-10); NRBC Flagged by Analyzer 0 % (0-5); Neutrophil # 10.26 X10^3/uL (2.7-7.7); Neutrophil % 80.2 % (47-70); Platelet Count 354 K/mm3 (150-450); RBC Distribution Width CV 15.1 % (11.6-14.6); RBC Distribution Width SD 46.6 fl (35.1-43.9); Red Blood Count 3.98 M/mm3 (4.2-5.4); White Blood Count 12.8 K/mm3 (4.4-11.0)
[2021-06-19 12:26] LABS: ALB/GLOB Ratio 0.6 RATIO (0.9-2.4); AST(SGOT) 140 U/L (15-37); Alanine Aminotransfer ALT/SGPT 242 U/L (13-56); Albumin, Serum 2.8 g/dL (3.2-5.0); Alkaline Phosphatase 189 U/L (45-117); Anion Gap 5 (5-15); BUN 21 mg/dL (7-18); BUN/Creat Ratio 30.7 RATIO (10-20); Calcium,Total 9.2 mg/dL (8.5-10.1); Chloride 102 mmol/L (98-107); Creatinine, Serum 0.68 mg/dL (0.55-1.02); EST Glomerular Filtration Rate 88 mL/min (>60); Est Glom Filt Rate - Afr Amer 107 mL/min (>60); Estimated Creatinine Clearance 36.08 ml/min; Globulin 4.8 g/dL (2.2-4.2); Glucose 100 mg/dL (74-106); Lipase 51 U/L (73-393); Potassium 3.7 mmol/L (3.5-5.1); Protein, Total 7.6 g/dL (6.4-8.2); Sodium Level 136 mmol/L (136-145); Troponin-I HS < 3 pg/mL (3.0-54.0)
[2021-06-19 13:32] LABS: Bacteria 0 SEEN /hpf (None Seen); Mucous, Urine 0 SEEN /hpf (<or=2+); Red Blood Cells-Urine 0 SEEN /hpf (0-5)
[2021-06-19 13:55] LABS: Color, Urine Yellow (Yellow); Glucose, Dipstick Normal (Normal); Ketone-Dipstick Negative (Negative); Leukocyte Esterase-Dipstick 100 /ul (Negative); Nitrite-Dipstick Negative (Negative); Occult Blood-Urine 25 /ul (Negative); Protein-Dipstick 30 mg/dl (Negative); Urine Bilirubin Dipstick Negative (Negative); Urine Clarity Clear (Clear); Urine Urobilinogen Normal (Normal); Urine pH 6.5 (5.0 - 8.0)
[2021-06-19 14:03] LABS: Squamous Epithelial Cells - UA 0-5 SEEN /hpf (5-10); White Blood Cells 0-5 SEEN /hpf (0-5)
[2021-06-19 14:23] VITALS: BP 140/68; PULSE 80; RESP 18; O2SAT 96
== END 2021-06-19 16:06 | disposition home or self-care (01) ==
PROVIDERS: Emergency Provider Emergency Medicine; PCP Family Medicine; Visit Provider Emergency Medicine
DX: R10.11 Right upper quadrant pain (principal); C78.7 Secondary malignant neoplasm of liver and intrahepatic bile duct; E21.5 Disorder of parathyroid gland, unspecified; Z86.718 Personal history of other venous thrombosis and embolism; Z79.01 Long term (current) use of anticoagulants; J45.909 Unspecified asthma, uncomplicated; M19.90 Unspecified osteoarthritis, unspecified site; I10 Essential (primary) hypertension; F32.A Depression, unspecified; E78.5 Hyperlipidemia, unspecified; Z87.19 Personal history of other diseases of the digestive system; Z79.899 Other long term (current) drug therapy
CPT/HCPCS: 71275; 74177; 80053; 81001; 83690; 84484; 85025; 93005; 96374; 96375; 96376; 99283; J7030; Q9967; A4216; J2405

== ENCOUNTER → 2021-11-02 | Outpatient (CLI) | payer MEDICARE, BC, SELFPAY ==
--- NOTE | 2021-11-02 09:01 | BD_ITS ---
STUDY: DUAL ENERGY X-RAY ABSORPTIOMETRY / DXA REASON FOR EXAM: Female, 80 years old. M85.89. Patient is postmenopausal. TECHNIQUE: Bone Mineral Density (BMD) measurements of lumbar spine and bilateral hips were obtained. COMPARISON: Comparison is made with prior study dated 10/31/2019. FINDINGS: Lumbar Spine (L1-L4): g/cm2 (0.923) / T-score (-1.1) / Z-score (1.6) Findings are suggestive of osteopenia with a low fracture risk. Left Femur Total: g/cm2 (0.716) / T-score (-1.8) / Z-score (0.2) Left Femoral Neck: g/cm2 (0.542) / T-score (-2.8) / Z-score (-0.5) Right Femur Total: g/cm2 (0.663) / T-score (-2.3) / Z-score (-0.2) Right Femoral Neck: g/cm2 (0.511) / T-score (-3.0) / Z-score (-0.7) The T-Scores on the most recent prior examination were: Lumbar Spine (L1-L4): There has been worsening of bone density since the previous examination. Left Femur Total: which represents an improvement of 2.2%. Right Femur Total: which represents an improvement of 0.1%. BD/Dexa Bone Density Study IMPRESSION: The patient is considered osteoporotic as outlined below according to World Eduardo Organization (WHO) criteria with a high fracture risk. There has been improvement of bone density since the previous examination. Reference Information: The T-score is the number of standard deviations above or below the standard which is normal for young adults at their peak bone mineral density. The World Health Organization (WHO) interprets the T-scores as follows: Above -1 Normal bone density Between -1 and -2.5 Osteopenia Equal to / or below -2.5 Osteoporosis As a practical clinical guideline, osteopenia may be graded as follows: Mild -1 through -1.5 Moderate -1.6 through -2.0 Severe -2.1 through -2.4 The Z-score is the number of standard deviations above or below age-matched controls. A Z-score of less than -1.5 would be considered abnormal. References: 1. NIH Osteoporosis and Related Bone Diseases www osteo.org 2. International Society for Clinical Densitometry www iscd.org 3. National Osteoporosis Foundation www nof.org Electronically Signed: Sean Mckeon MD at 12:46 EDT ,
== END | disposition home or self-care (01) ==
LOC: OPBD 08:58
PROVIDERS: PCP Family Medicine; Visit Provider Internal Medicine Endocrinology, Diabetes & Metabolism
DX: M85.89 Other specified disorders of bone density and structure, multiple sites (principal)
CPT/HCPCS: 77080

== ENCOUNTER → 2021-11-08 | Outpatient (CLI) | payer MEDICARE, BC, SELFPAY ==
[2021-11-08 12:39] LABS: Vitamin D,25 Hydroxy 40.2 ng/mL
[2021-11-08 12:40] LABS: PTHIN 64.3 pg/mL (18.4-80.1)
[2021-11-08 12:59] LABS: Cholesterol 173 mg/dL (200); High Density Lipoprotein 58 mg/dL; Triglycerides 135 mg/dL; Very Low Density Lipoprotein 27 mg/dL (5-40)
[2021-11-08 13:04] LABS: Albumin, Serum 3.6 g/dL (3.2-5.0); BUN 20 mg/dL (7-18); Calcium,Total 9.2 mg/dL (8.5-10.1); Chloride 106 mmol/L (98-107); Creatinine, Serum 0.83 mg/dL (0.55-1.02); EST Glomerular Filtration Rate 70 mL/min (>60); Est Glom Filt Rate - Afr Amer 85 mL/min (>60); Glucose 96 mg/dL (74-106); Phosphorus 3.7 mg/dL (2.5-4.9); Potassium 4.2 mmol/L (3.5-5.1); Sodium Level 141 mmol/L (136-145)
[2021-11-08 13:15] LABS: Microalbumin,Random Urine 14.3 mg/L (NO RANGE EST.); Microalbumin:Creatinine Ratio 6.6 mg/g CRE (<30 mg/g CRE)
== END | disposition home or self-care (01) ==
LOC: MFPLAB 10:45
PROVIDERS: Internal Medicine Endocrinology, Diabetes & Metabolism; PCP Family Medicine; Referring Provider Family Medicine; Visit Provider Family Medicine
DX: M85.89 Other specified disorders of bone density and structure, multiple sites (principal); Z79.899 Other long term (current) drug therapy; E04.2 Nontoxic multinodular goiter; E55.9 Vitamin D deficiency, unspecified; I10 Essential (primary) hypertension
CPT/HCPCS: 36415; 80061; 80069; 82043; 82306; 82570; 83970

== ENCOUNTER → 2022-04-12 | Outpatient (CLI) | payer MEDICARE, BC, SELFPAY ==
--- NOTE | 2022-04-12 09:24 | BI_ITS ---
MAMMOGRAPHY - BILATERAL SCREENING REASON FOR EXAM: Female, 81 years old. Routine annual screening examination. PERTINENT HISTORY: Non-contributory. Remote left excisional breast biopsy. TECHNIQUE: Digital bilateral breast mikie (3D mammographic acquisition) in the CC and MLO projections. 2-D mediolateral oblique (MLO) and craniocaudad (CC) views of both breasts were obtained. CAD: Full Field Digital Mammography with Computer Added Detection was performed. COMPARISON: Comparison is made with prior study dated 10/31/2019 and 04/25/2018. FINDINGS: Breast Composition: There are scattered areas of fibroglandular density. There are no dominant masses or suspicious calcifications. Stable bilateral secretory calcifications. No other significant abnormalities are identified. There has been no significant change since the prior study. BI/SCRN MAMM (CAD)W/MIKIE BILAT IMPRESSION: Stable bilateral screening mammogram. Yearly follow-up mammogram recommended. (A) ASSESSMENT CATEGORY: BIRADS Category 2: Benign. A letter regarding these results will be sent to the patient by the facility within 30 days. Approximately 10% of breast cancers are not detected by mammography. A normal mammogram should not delay biopsy of a clinically suspicious abnormality. [id number] Electronically Signed: Sean Mckeon MD at 11:25 EST ,
== END | disposition home or self-care (01) ==
LOC: OPBI 09:21
PROVIDERS: PCP Family Medicine; Visit Provider Internal Medicine Hematology & Oncology
DX: Z12.31 Encounter for screening mammogram for malignant neoplasm of breast (principal)
CPT/HCPCS: 77063; 77067

== ENCOUNTER → 2022-05-03 | Outpatient (CLI) | payer MEDICARE, BC, SELFPAY ==
--- NOTE | 2022-05-03 11:11 | RAD_ITS ---
STUDY: X-RAY - LEFT ANKLE REASON FOR EXAM: Female, 81 years old. left ankle pain TECHNIQUE: 3 view(s) of the ankle. COMPARISON: None. FINDINGS: Normal visualized distal tibia and fibula. Normal medial and lateral malleoli. Normal tibiotalar articulation and ankle mortise. Normal visualized talus and calcaneus. The visualized subtalar, talonavicular, calcaneocuboid and tarsal articulations are normal. The soft tissue structures are unremarkable. RAD/Ankle min 3 Views IMPRESSION: Normal x-ray examination of the ankle. Electronically Signed: Gato Todd MD at 17:09 EDT ,
== END | disposition home or self-care (01) ==
LOC: MTLAB 11:09 → MTRAD 11:38
PROVIDERS: PCP Family Medicine; Referring Provider Nurse Practitioner Family; Visit Provider Nurse Practitioner Family
DX: E04.2 Nontoxic multinodular goiter (principal); M85.89 Other specified disorders of bone density and structure, multiple sites; I10 Essential (primary) hypertension; Z79.899 Other long term (current) drug therapy; M25.572 Pain in left ankle and joints of left foot
CPT/HCPCS: 73610

== ENCOUNTER 2022-05-05 15:02 | Outpatient (CLI) | payer MEDICARE, BC, SELFPAY ==
[2022-05-05 18:53] LABS: AST(SGOT) 17 U/L (15-37); Alanine Aminotransfer ALT/SGPT 19 U/L (13-56); Albumin, Serum 3.5 g/dL (3.2-5.0); Alkaline Phosphatase 103 U/L (45-117); Anion Gap 7 (5-15); BUN 20 mg/dL (7-18); Calcium,Total 8.8 mg/dL (8.5-10.1); Chloride 104 mmol/L (98-107); Creatinine, Serum 0.87 mg/dL (0.55-1.02); EST Glomerular Filtration Rate 67 mL/min (>60); Est Glom Filt Rate - Afr Amer 81 mL/min (>60); Globulin 3.5 g/dL (2.2-4.2); Glucose 113 mg/dL (74-106); Magnesium 1.8 mg/dL (1.6-2.6); Potassium 3.7 mmol/L (3.5-5.1); Sodium Level 138 mmol/L (136-145); T4 Free Direct 0.65 ng/dL (0.76-1.46); Thyroid Stim Hormone (TSH) 1.39 uIU/mL (0.358-3.74)
[2022-05-05 19:08] LABS: 24HR. Urine Creatinine 0.86 g/24 HR (0.70-1.90)
[2022-05-06 07:31] LABS: PTHIN 69.3 pg/mL (18.4-80.1)
[2022-05-07 16:06] LABS: C-Peptide 7.5 ng/mL (1.1-4.4)
== END 2022-05-05 23:59 | disposition home or self-care (01) ==
PROVIDERS: PCP Family Medicine; Referring Provider Internal Medicine Endocrinology, Diabetes & Metabolism; Visit Provider Internal Medicine Endocrinology, Diabetes & Metabolism
DX: E04.2 Nontoxic multinodular goiter (principal); C78.00 Secondary malignant neoplasm of unspecified lung; C77.9 Secondary and unspecified malignant neoplasm of lymph node, unspecified; I48.91 Unspecified atrial fibrillation; C7A.8 Other malignant neuroendocrine tumors; I10 Essential (primary) hypertension; M85.89 Other specified disorders of bone density and structure, multiple sites; Z79.899 Other long term (current) drug therapy; R16.0 Hepatomegaly, not elsewhere classified; D3A.8 Other benign neuroendocrine tumors; R53.83 Other fatigue; R19.7 Diarrhea, unspecified
CPT/HCPCS: 36415; 80053; 82306; 82570; 83735; 83970; 84439; 84443; 84681; 96372; J2353

== ENCOUNTER → 2022-05-07 | Outpatient (CLI) | payer MEDICARE, BC, SELFPAY ==
[2022-05-07 10:48] LABS: 24HR UR TOTAL VOLUME 1300 ml; Calcium Urine pH Range 1; Urine Calcium (Random) < 5.0 (Not Estab.)
[2022-05-07 10:49] LABS: (24 HR) Urine Calcium < 5.0 mg/24 HR (42.0-353.0)
== END | disposition home or self-care (01) ==
LOC: LABSPEC 09:43
PROVIDERS: PCP Family Medicine; Visit Provider Internal Medicine Endocrinology, Diabetes & Metabolism
DX: E04.2 Nontoxic multinodular goiter (principal); M85.89 Other specified disorders of bone density and structure, multiple sites; I10 Essential (primary) hypertension; Z79.899 Other long term (current) drug therapy
CPT/HCPCS: 81050; 82340

== ENCOUNTER → 2022-05-26 | Outpatient (CLI) | payer MEDICARE, BC, SELFPAY ==
--- NOTE | 2022-05-26 07:14 | MRI_ITS ---
STUDY: MRI LEFT ANKLE WITHOUT CONTRAST REASON FOR EXAM: Female, 81 years old. Left ankle pain. TECHNIQUE: Standardized fat and water weighted pulse sequences were obtained in all 3 orthogonal planes. COMPARISON: X-rays of the left ankle dated May 03, 2022. FINDINGS: Marked subcutaneous soft tissue edema laterally extending posteriorly adjacent to the Achilles tendon. Normal posterior tibialis tendon. Normal flexor digitorum longus tendon. Normal flexor hallucis longus tendon. Normal peroneus longus and brevis tendons. Normal tibialis anterior tendon. Normal extensor hallucis longus tendon. Normal extensor digitorum longus tendons. Marked thickening of the distal Achilles tendon compatible with chronic Achilles tendinosis. Full-thickness tear of the Achilles with the proximal tendon retracted approximately 2.4 cm from the distal tendon. Marked adjacent soft tissue and intramuscular edema at the area of the tear (axial series 3 images 4-21, sagittal series 6 images a-16). Normal plantar fascia. Normal plantar calcaneal tubercles. Normal intrinsic muscles of the rearfoot. Normal distal tibiofibular syndesmotic ligamentous complex. Normal lateral ligamentous complex. Normal subtalar ligaments and sinus tarsi. Normal deltoid ligamentous complexes. Normal plantar calcaneonavicular (spring) ligament. Normal tibiotalar articulation. Normal talar dome. Normal subtalar articulations. Normal talonavicular articulation. Normal calcaneocuboid articulation. Normal navicular-cuneiform articulations. MRI/Lower Ext/No Jt/w/o IMPRESSION: Complete tear of the distal Achilles tendon with MRI evidence of chronic Achilles tendinosis. See discussion above. Electronically Signed: Oswaldo Hernandez, at 12:00 EDT ,
--- NOTE | 2022-05-26 07:14 | MRI_ITS ---
STUDY: MRI LEFT MIDFOOT REASON FOR EXAM: Female, 81 years old. Foot swelling and pain. TECHNIQUE: Standardized fat and water weighted pulse sequences were obtained in all 3 orthogonal planes. COMPARISON: Left ankle images dated May 03, 2022. FINDINGS: Arthrosis of the talonavicular joint. Arthrosis of the calcaneocuboid joint. Arthrosis of the navicular-cuneiform joint. Arthrosis of the intercuneiform articulations. Arthrosis of the first tarsometatarsal articulation. Normal Lisfranc ligament. Normal second and third tarsometatarsal articulations. Normal cuboid fourth and cuboid fifth tarsometatarsal articulation. Normal tibialis anterior tendon. Normal extensor hallucis longus tendon. Normal extensor digitorum longus tendons. Normal peroneus longus tendon and distal insertion. Normal peroneus brevis tendon and distal insertion. Normal intrinsic muscles of the mid and forefoot region. Normal extensor digitorum brevis muscle. Thickening of the distal Achilles tendon compatible with Achilles tendinosis with a full-thickness full width retracted Achilles tendon tear (see detailed ankle MRI report from earlier today). Diffuse subcutaneous soft tissue swelling posteriorly extending laterally. MRI/Lower Ext Joint Only (Routine) IMPRESSION: Osteoarthritic changes as described. Distal Achilles tendinosis with full-thickness full width retracted Achilles tendon tear. Subcutaneous soft tissue edema posteriorly extending laterally. Electronically Signed: Oswaldo Hernandez, at 15:41 EDT ,
== END | disposition home or self-care (01) ==
PROVIDERS: PCP Family Medicine; Referring Provider Nurse Practitioner Family; Visit Provider Nurse Practitioner Family
DX: M25.572 Pain in left ankle and joints of left foot (principal)
CPT/HCPCS: 73718; 73721

== ENCOUNTER 2022-07-16 09:39 | Emergency (ER) | payer MEDICARE, BC, SELFPAY ==
[2022-07-16 09:40] VITALS: BP 172/66; PULSE 80; RESP 18; TEMP 36.1; O2SAT 99
--- NOTE | 2022-07-16 10:11 | CT_ITS ---
STUDY: CT THORACIC SPINE WITHOUT CONTRAST REASON FOR EXAM: Female, 81 years old. Pain, trauma RADIATION DOSAGE (If Supplied By Facility): CTDIvol = ( 18.42 ) mGy, DLP = ( 650.27 ) mGycm TECHNIQUE: The patient was scanned in a multi detector CT scanner. High resolution imaging was performed. Images were obtained from C6 to lower L2. Sagittal and coronal images were reconstructed. Individualized dose optimization techniques were used for this CT. COMPARISON: CT abdomen and pelvis and CTA chest 06/19/2021. FINDINGS: Degenerative narrowing of the C6-C7 disc space height with endplate sclerosis. Moderate kyphosis of the midthoracic spine. There is no substantial scoliosis. There is recent moderate anterior wedge compression fracture of the upper T11 vertebral body with 40% loss of the anterior vertebral body height. No other suspicious fractures. No malalignment. Normal central canal and bilateral intervertebral neural foramina. Normal remaining vertebral body heights. Normal disc spaces heights. The soft tissue structures are unremarkable. Right posterior pleural thickening and minimal subsegmental atelectasis in the posterior lung bases. CT/Spine Thoracic without Contras IMPRESSION: 1. Moderate increase in anterior wedge compression fracture of the upper T11 vertebral body with 40% loss of the anterior vertebral body height. This is feasible for kyphoplasty if patient has debilitating back pain at this level. 2. No malalignment and no other suspicious acute abnormality. 3. Mild right posterior pleural fluid. COMMENT: The large metastatic mass in the right posterior hepatic lobe is not obvious without IV contrast. Please see CT report of 06/19/2021. Electronically Signed: Benton Vergara MD at 12:03 EDT ,
--- NOTE | 2022-07-16 10:11 | CT_ITS ---
EXAM: CT CHEST WITHOUT INTRAVENOUS CONTRAST CLINICAL INDICATION: back and rib trauma TECHNIQUE: Helically acquired images were obtained of the chest without intravenous contrast. This CT exam was performed using one or more of the following dose reduction techniques: automated exposure control, adjustment of the mA and/or kV according to patient size, and/or use of iterative reconstruction technique. RADIATION DOSE: CTDIvol = 8.64 mGy, DLP = 328.01 mGy-cm COMPARISON: CTA chest 06/19/2021. FINDINGS: LUNGS AND PLEURAL SPACES: Mild right posterior pleural fluid. Minimal subsegmental atelectasis in the right posterior lung base. No mass. No pneumothorax. HEART: Mild cardiomegaly. Prosthetic calcified plaques along the proximal half of the LAD branch of the left coronary artery and the few calcified plaques in the circumflex branch of the left coronary artery. Normal pericardium. MEDIASTINUM: Unremarkable. No mediastinal or hilar adenopathy. Esophagus is unremarkable. No hiatal hernia. THYROID: Unremarkable. No thyroid lesions. BONES/JOINTS: Moderate recent anterior wedge compression fracture of the upper T11 vertebral body. There is 4% loss of the anterior vertebral body height. This is a new finding. No suspicious lytic or blastic abnormality. VASCULATURE: Unremarkable. Thoracic aorta is non-dilated. LIVER: The liver mass in the right posterior hepatic lobe is poorly visualized due to absence of IV contrast. GALLBLADDER AND BILE DUCTS: Postsurgical absence of the gallbladder. CT/Chest without Contrast IMPRESSION: 1. Moderate recent anterior wedge compression fracture of the upper T11 vertebral body with 40% loss of the anterior vertebral body height. This is a new finding when compared to 06/19/2021. 2. Mild right posterior pleural fluid and minimal subsegmental atelectases in the right posterior lung base. 3. The metastatic mass in the right posterior hepatic lobe is obvious only on the prior CT of the abdomen and pelvis and CTA chest of 06/19/2021. Electronically Signed: Benton Vergara MD at 11:58 EDT ,
--- NOTE | 2022-07-16 10:11 | RAD_ITS ---
STUDY: X-RAY - LEFT SHOULDER REASON FOR EXAM: Female, 81 years old. Injury. Pain. TECHNIQUE: 4 view(s) of the shoulder. COMPARISON: None. FINDINGS: Osteopenia. Mild arthrosis of the glenohumeral joint. Mild arthrosis of the AC joint. Normal acromion. Normal humeral head and visualized proximal humerus. Normal soft tissues. Normal visualized pulmonary apex. RAD/Shoulder min 2 Views IMPRESSION: Osteopenia with mild arthrosis of the glenohumeral and acromioclavicular joints. No other abnormality. Electronically Signed: Oswaldo Hernandez MD at 11:10 EDT ,
--- NOTE | 2022-07-16 10:13 | EDS_ITS ---
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 Patient states about a week ago she was walking when her boot got stuck on the carpet and she fell forward. She was able to catch herself with outstretched hands on the couch but her back twisted and bent inwards. Since then she has had severe pain in her thoracic back, her right ribs and her left shoulder. She states she did not actually fall to the ground or hit her head. There was no loss of conscious. Patient had family in town and they were able to help her up and that she took a shower. Patient's been alternating ibuprofen and Tylenol for pain. She states she does not want anything stronger for pain as she has been on oxycodone in the past and does not like it. Patient states she actually came in because her family Pestering her to be evaluated in case she does have a fracture. No other complaints at this time. Patient denies any difficulty breathing except sometimes she becomes short of breath because the pain is so severe. It is worse with movement and when she tries to roll out of bed in the morning. Denies any difficulty with urination or with bowel movements. Denies any numbness or weakness to her legs. [facility] Medical History Abdominal pain, RLQ Achilles rupture, left Arthritis Asthma Bone metastases Colon wall thickening Degenerative arthritis of left foot Depression Diarrhea Easy bruising Essential hypertension Fall Fatigue Heartburn History of diverticulitis History of rheumatic fever History of stress test Hyperlipidemia Left arm pain Lung metastases Lymph nodes enlarged Neuroendocrine tumor Non-smoker Parathyroid adenoma Parathyroid disease Postoperative atrial fibrillation (02/2018) 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 Strain of foot, left SVT (supraventricular tachycardia) Wears dentures Home Medications sertraline 100 mg tablet 150 mg PO DAILY mood 01/31/15 [History Last Taken 09/25/20 07:00] cholecalciferol (vitamin D3) 25 mcg (1,000 unit) tablet 2,000 unit PO DAILY 07/28/15 [History Last Taken 09/24/20] pyridoxine (vitamin B6) 50 mg tablet 50 mg PO DAILY supplement 05/15/20 [History Last Taken 09/24/20] mecobalamin (vitamin B12) 1,000 mcg chewable tablet (B12 Active) 1,000 mcg PO DAILY 09/04/20 [History Last Taken Unknown] atorvastatin 20 mg tablet 10 mg PO DAILY 04/01/21 [History Last Taken Unknown] coenzyme Q10 100 mg capsule (Co Q-10) 100 mg PO DAILY 04/01/21 [History Last Taken Unknown] glucosamine-chondroitin 250 mg-200 mg tablet (Osteo Bi-Flex) 2 tab PO DAILY 04/01/21 [History Last Taken Unknown] magnesium 250 mg tablet 250 mg PO DAILY 04/01/21 [History Last Taken Unknown] octreotide,microspheres 20 mg intramuscular susp, extended release (Sandostatin LAR Depot) 20 mg IM Q4W 04/01/21 [History Last Taken Unknown] turmeric root extract 500 mg capsule 500 mg PO DAILY 04/01/21 [History Last Taken Unknown] elderberry fruit 200 mg capsule 400 mg PO DAILY 05/21/21 [History Last Taken Unknown] potassium chloride 20 mEq tablet,extended release(part/cryst) 20 meq PO DAILY 05/21/21 [History Last Taken Unknown] risedronate 35 mg tablet 35 mg PO QWEEK 05/21/21 [History Last Taken Unknown] amlodipine 5 mg tablet 5 mg PO DAILY #90 tabs 06/21/21 [Rx Last Taken Unknown] flecainide 100 mg tablet 100 mg PO BID heart beat #180 tabs 11/05/21 [Rx Last Taken Unknown] apixaban 5 mg tablet (Eliquis) 5 mg PO BID #180 tabs 12/30/21 [Rx Last Taken Unknown] lisinopril 40 mg tablet 40 mg PO DAILY #90 tabs 06/15/22 [Rx Last Taken Unknown] metoprolol succinate 100 mg tablet,extended release 24 hr 100 mg PO DAILY #90 tabs 06/23/22 [Rx Last Taken Unknown] oxycodone 5 mg tablet 5 mg PO Q6H PRN pain 3 days #12 tabs 07/16/22 [Rx Last Taken Unknown] Allergy/AdvReac Type Severity Reaction Status Date / Time Iodinated Contrast Media Allergy Severe Anaphylaxis Verified 06/30/22 11:36 [Iodinated Contrast Media - IV Dye] Penicillins [PCN] AdvReac Intermediate Hives Verified 06/30/22 11:36 Family History Father CAD (coronary artery disease) Heart disease Hypertension Mother Hypertension Brother Hypertension Sister Hypertension Daughter Thyroid cancer Surgical History History of appendectomy History of breast lump removal History of cataract surgery History of colonoscopy (02/2018) History of hysterectomy History of left heart catheterization (06/25/18) History of parathyroidectomy (~2013) History of surgery on left wrist Hx of arthroscopic knee surgery Hx of cholecystectomy Hx of colonoscopy Social History Smoking Status: Never smoker second hand exposure: No alcohol intake: never substance use type: does not use caffeine: Yes (1) what type of physical activity do you participate in: none frequency: does not exercise elizabeth/voodoo: [employer] seatbelt use: always do you feel safe at home: Yes ROS ROS ED Constitutional Constitutional ED: Denies chills or fever(s) ENT ENT ED: Denies sore throat Cardiovascular Cardiovascular: Denies chest pain Respiratory/Chest Respiratory/Chest: Denies cough or dyspnea Gastrointestinal Gastrointestinal: Denies abdominal pain, nausea or vomiting Musculoskeletal Musculoskeletal: Reports arthralgias, back pain and neck pain Integumentary Denies rash Neurologic Neurologic: Denies headache(s), paresthesias or weakness Psychiatric Psychiatric: Denies anxiety Hematologic/Lymphatic Hematologic/Lymphatic: Reports easy bleeding and easy bruising EXAM Physical Exam Const Vital Signs: 07/16/22 09:40 Temperature 96.9 F L Temperature Source Temporal Pulse Rate 80 Respiratory Rate 18 Blood Pressure 172/66 H Blood Pressure Mean 101 Pulse Ox 99 Oxygen Delivery Method Room Air Positive well nourished and well developed General Appearance ED: well developed and NAD HEENT atraumatic Eyes PERRL and EOMs intact bilaterally Neck full ROM General: Negative for tenderness Chest Wall inspection of chest normal and palpation of chest normal Chest Narrative: No chest wall crepitus. No flail chest sign. Resp normal respiratory effort and clear to auscultation bilaterally Cardio regular rhythm and no murmurs GI normal to inspection, nondistended, normoactive bowel sounds and non-tender Back/Spine Back/Spine Narrative: Normal range of motion. Patient has tenderness of the thoracic midline spine around approximately T8-T12. No pinpoint bony tenderness. She has diffuse posterior rib tenderness of the right ribs approximately T8-T10. Extremity normal to inspection and full ROM Extremity Narrative: Patient has pain with range of motion of the left shoulder but no weakness. No acute bony tenderness of the clavicles, humerus, pelvis or other major joints. Left lower extremity is immobilized in a boot. Neuro oriented x3, moves all extremities, no focal motor deficits and no sensory deficits noted Psych mental status grossly normal and thought process normal Skin no rashes or lesions noted and no wounds MDM MDM MDM Narrative Medical decision making narrative: Patient is evaluated for continued back pain and left shoulder pain after fall. She does have a history of bony metastasis and differential that includes acute traumatic fracture as well as pathologic fracture. We will obtain a CT of the chest and thoracic spine for more complete evaluation given her history of metastatic cancer. In addition we will obtain an x-ray of the left shoulder. Patient does not want anything for pain at this time. I did discuss with patient that as she is on Eliquis she should not be taking NSAIDs such as Advil for pain because of the increased risk of bleeding. Patient states she was not aware of that. Since imaging does show a moderate recent anterior wedge compression fracture at the upper T11 vertebral body with 40% loss of anterior vertebral body height. This is new compared to findings on 06/19/2021. She has mild right posterior pleural fluid no other acute process. No other acute injuries appreciated. X- ray of the shoulder interpreted myself as well as radiology does not show any acute fracture or dislocation. Patient's case is discussed with Dr. Willett, spine on-call. He will have the patient call his office on Monday for follow-up. Discussed with patient that she may be candidate for kyphoplasty and should follow-up for further pain control. Patient is amenable to a course of oxycodone for pain control at least over the weekend. Patient is counseled on the risk of opioids but she has tolerated the past. Counseled on opioid-induced constipation and the need to take a stool softener or MiraLAX daily to help prevent this. Patient did drive her self here so she is not given anything sedating prior to discharge. Radiography Diagnostic Testing: Clinical Impression(s) from Imaging Studies Chest CT 07/16/22 10:11 IMPRESSION: 1. Moderate recent anterior wedge compression fracture of the upper T11 vertebral body with 40% loss of the anterior vertebral body height. This is a new finding when compared to 06/19/2021. 2. Mild right posterior pleural fluid and minimal subsegmental atelectases in the right posterior lung base. 3. The metastatic mass in the right posterior hepatic lobe is obvious only on the prior CT of the abdomen and pelvis and CTA chest of 06/19/2021. Electronically Signed: Benton Vergara MD at 11:58 EDT , Shoulder X-Ray 07/16/22 10:11 IMPRESSION: Osteopenia with mild arthrosis of the glenohumeral and acromioclavicular joints. No other abnormality. Electronically Signed: Oswaldo Hernandez MD at 11:10 EDT , Thoracic Spine CT 07/16/22 10:11 IMPRESSION: 1. Moderate increase in anterior wedge compression fracture of the upper T11 vertebral body with 40% loss of the anterior vertebral body height. This is feasible for kyphoplasty if patient has debilitating back pain at this level. 2. No malalignment and no other suspicious acute abnormality. 3. Mild right posterior pleural fluid. COMMENT: The large metastatic mass in the right posterior hepatic lobe is not obvious without IV contrast. Please see CT report of 06/19/2021. Electronically Signed: Benton Vergara MD at 12:03 EDT , Discharge Plan Triage Chief Complaint: Fall ED Provider: Alea Man Dx/Rx/DC Orders Clinical Impression: Closed wedge compression fracture of T11 vertebra, Back pain Instructions: ED Fracture, Vertebral Compression Prescriptions: New oxycodone 5 mg tablet 5 mg PO Q6H PRN (Reason: pain) 3 Days Qty: 12 0RF No Action pyridoxine (vitamin B6) 50 mg tablet 50 mg PO DAILY atorvastatin 20 mg tablet 10 mg PO DAILY Label Comments: Take 1/2 tablet by mouth daily magnesium 250 mg tablet 250 mg PO DAILY coenzyme Q10 [Co Q-10] 100 mg capsule 100 mg PO DAILY turmeric root extract 500 mg capsule 500 mg PO DAILY glucosamine-chondroitin [Osteo Bi-Flex] 250-200 mg tablet 2 tab PO DAILY Sandostatin LAR Depot 20 mg suspension,extended rel recon 20 mg IM Q4W potassium chloride 20 mEq tablet,ER particles/crystals 20 meq PO DAILY Label Comments: TAKE 1 TABLET DAILY risedronate 35 mg tablet 35 mg PO QWEEK Label Comments: TAKE 1 TABLET week elderberry fruit 200 mg capsule 400 mg PO DAILY sertraline 100 MG tablet 150 mg PO DAILY Label Comments: depression cholecalciferol (vitamin D3) 1,000 UNIT tablet 2,000 unit PO DAILY Label Comments: supplement mecobalamin (vitamin B12) [B12 Active] 1,000 mcg Tablet,Chewable 1,000 mcg PO DAILY amlodipine 5 mg tablet 5 mg PO DAILY Qty: 90 3RF flecainide 100 mg tablet 100 mg PO BID Qty: 180 3RF Eliquis 5 mg tablet 5 mg PO BID Qty: 180 4RF Hold Instructions: surgery lisinopril 40 mg tablet 40 mg PO DAILY Qty: 90 3RF metoprolol succinate 100 mg tablet extended release 24 hr 100 mg PO DAILY Qty: 90 3RF Primary Care Provider: Blanca Cruz Referrals: Blanca Cruz MD [Primary Care Provider] - Edgar Willett DO [Med Staff - Active Staff] - (Call Monday for close follow up ) Activity Restrictions/Additional Instructions: You may also take Tylenol in addition to the oxycodone as needed for pain. Avoid anti-inflammatory such as ibuprofen or Aleve as you are on Eliquis. If you felt that the Lidoderm patch was helpful you can get them [id number] (4% extra strength Salonpas). If your pain becomes too bad or you develop progressive or worsening symptoms specially any new numbness or weakness of the extremities please return to the emergency room. As we discussed please take a stool softener or MiraLAX while taking pain medicines you do not suffer from opioid-induced constipation. Disposition Disposition: Home, Self Care
[2022-07-16 12:06] VITALS: BMI 33.0
[2022-07-16 14:17] VITALS: RESP 18
[2022-07-16] MEDS: Lidocaine 5% Patch 1 PATCH TOPICAL (14:19)
== END 2022-07-16 14:24 | disposition home or self-care (01) ==
PROVIDERS: Emergency Provider Emergency Medicine; PCP Family Medicine; Visit Provider Emergency Medicine
DX: C79.51 Secondary malignant neoplasm of bone (principal); C78.00 Secondary malignant neoplasm of unspecified lung; S22.080A Wedge compression fracture of T11-T12 vertebra, initial encounter for closed fracture; I48.91 Unspecified atrial fibrillation; E78.5 Hyperlipidemia, unspecified; I10 Essential (primary) hypertension; Z79.01 Long term (current) use of anticoagulants; Z85.89 Personal history of malignant neoplasm of other organs and systems; F32.A Depression, unspecified; Z79.899 Other long term (current) drug therapy; Z90.49 Acquired absence of other specified parts of digestive tract; Z90.710 Acquired absence of both cervix and uterus; M54.9 Dorsalgia, unspecified; W01.190A Fall on same level from slipping, tripping and stumbling with subsequent striking against furniture, initial encounter
CPT/HCPCS: 71250; 72128; 73030; 99282

== ENCOUNTER → 2022-08-31 | Outpatient (CLI) | payer MEDICARE, BC, SELFPAY ==
--- NOTE | 2022-08-30 09:30 | BONBX_PTH ---
PATIENT: JERMAIN JENKINS LOC: [facility] U#:[id number] AGE/SX: 81/F ROOM: RE08/31/[address]: Dr. Edgar Willett DO : 1940 BED: DIS: 08/31/2022 SPEC #: [id number] RECD: 09/01/22 10:01 STATUS: KEENAN CAMMIE #: [id number] TAN: 08/30/22 09:[address]: Edgar Willett DEPT: SURGICAL PATHOLOGY RECD BY: Orquidea Sibley ENTERED: 09/01/22 10:01 SP TYPE: Bone OTHR DR: Dr. Blanca Cruz MD [facility] Tissues: Vertebra, NOS Procedures: Decalcification bone/plaque Surgery Specimen Level V HEADER OPERATION: Thoracic 8 kyphoplasty PRE-OP DIAGNOSIS: Wedge compression fracture of T7-T8 vertebra TISSUE SUBMITTED: T8 vertebral body bone biopsy MICROSCOPIC DIAGNOSIS T8 vertebral body, bone biopsy: Reparative and reactive change consistent with fracture site. AM:adriana 09/02/2022 MICROSCOPIC DESCRIPTION Slides are reviewed. GROSS DESCRIPTION Received in fixative is one container labeled with the patient's name and designated T8 vertebral body bone biopsy. The specimen consists of an elongated piece of bone measuring 1.8 cm in length and 0.2 cm in diameter. The entire specimen is submitted in one cassette after decalcification. / SJ:adriana 09/01/2022 TC:5 CPT: 27960, 07273
== END | disposition home or self-care (01) ==
LOC: LABSPEC 15:38
PROVIDERS: PCP Family Medicine; Referring Provider Orthopaedic Surgery; Visit Provider Orthopaedic Surgery
DX: S22.060A Wedge compression fracture of T7-T8 vertebra, initial encounter for closed fracture (principal)
CPT/HCPCS: 88307; 88311

== ENCOUNTER → 2022-11-04 | Outpatient (CLI) | payer MEDICARE, BC, SELFPAY ==
[2022-11-04 10:46] LABS: PTHIN 91.3 pg/mL (18.4-80.1)
[2022-11-04 10:49] LABS: Vitamin D,25 Hydroxy 45.2 ng/mL
[2022-11-04 11:15] LABS: BUN 17 mg/dL (7-18); Calcium,Total 9.4 mg/dL (8.5-10.1); Chloride 106 mmol/L (98-107); Creatinine, Serum 0.81 mg/dL (0.55-1.02); EST Glomerular Filtration Rate 72 mL/min (>60); Est Glom Filt Rate - Afr Amer 87 mL/min (>60); Glucose 110 mg/dL (74-106); Phosphorus 3.2 mg/dL (2.5-4.9); Potassium 4.1 mmol/L (3.5-5.1); Sodium Level 138 mmol/L (136-145)
[2022-11-05 17:07] LABS: C-Peptide 2.2 ng/mL (1.1-4.4)
== END | disposition home or self-care (01) ==
LOC: LAB 09:04
PROVIDERS: PCP Family Medicine; Referring Provider Internal Medicine Endocrinology, Diabetes & Metabolism; Visit Provider Internal Medicine Endocrinology, Diabetes & Metabolism
DX: M85.89 Other specified disorders of bone density and structure, multiple sites (principal)
CPT/HCPCS: 36415; 80069; 82306; 83970; 84681

== ENCOUNTER → 2023-04-14 | Outpatient (CLI) | payer MEDICARE, BC, SELFPAY ==
--- NOTE | 2023-04-14 10:18 | BI_ITS ---
MAMMOGRAPHY - BILATERAL SCREENING REASON FOR EXAM: Female, 82 years old. Routine annual screening examination. PERTINENT HISTORY: Non-contributory. TECHNIQUE: Digital bilateral breast mikie (3D mammographic acquisition) in the CC and MLO projections. 2-D mediolateral oblique (MLO) and craniocaudad (CC) views of both breasts were obtained. CAD: Full Field Digital Mammography with Computer Added Detection was performed. COMPARISON: Comparison is made with prior study dated April 04, 2022 and October 31, 2019. FINDINGS: Breast Composition: There are scattered areas of fibroglandular density. There are no dominant masses or suspicious calcifications. Stable bilateral secretory calcifications. Small bilateral axillary lymph nodes. No other significant abnormalities are identified. There has been no significant change since the prior study. BI/SCRN MAMM (CAD)W/MIKIE BILAT IMPRESSION: Stable bilateral screening mammogram. Yearly follow-up mammogram recommended. (A) ASSESSMENT CATEGORY: BIRADS Category 2: Benign. A letter regarding these results will be sent to the patient by the facility within 30 days. Approximately 10% of breast cancers are not detected by mammography. A normal mammogram should not delay biopsy of a clinically suspicious abnormality. [id number] Electronically Signed: Sean Mckeon MD at 11:35 EST ,
== END | disposition home or self-care (01) ==
LOC: OPBI 10:17
PROVIDERS: PCP Family Medicine; Referring Provider Family Medicine; Visit Provider Family Medicine
DX: Z12.31 Encounter for screening mammogram for malignant neoplasm of breast (principal)
CPT/HCPCS: 77063; 77067

== ENCOUNTER → 2023-05-03 | Outpatient (CLI) | payer MEDICARE, BC, SELFPAY ==
[2023-05-03 11:01] LABS: Vitamin D,25 Hydroxy 41.6 ng/mL
[2023-05-03 11:33] LABS: Albumin, Serum 3.8 g/dL (3.2-5.0); BUN 20 mg/dL (7-18); BUN/Creat Ratio 20.7 RATIO (10-20); Calcium,Total 10.1 mg/dL (8.5-10.1); Chloride 103 mmol/L (98-107); Creatinine, Serum 0.97 mg/dL (0.55-1.02); EST Glomerular Filtration Rate 59 mL/min (>60); Est Glom Filt Rate - Afr Amer 71 mL/min (>60); Glucose 92 mg/dL (74-106); Phosphorus 3.3 mg/dL (2.5-4.9); Potassium 4.6 mmol/L (3.5-5.1); Sodium Level 136 mmol/L (136-145); T4 Free Direct 0.73 ng/dL (0.76-1.46); Thyroid Stim Hormone (TSH) 1.82 uIU/mL (0.358-3.74)
== END | disposition home or self-care (01) ==
PROVIDERS: PCP Family Medicine; Referring Provider Internal Medicine Endocrinology, Diabetes & Metabolism; Visit Provider Internal Medicine Endocrinology, Diabetes & Metabolism
DX: M81.0 Age-related osteoporosis without current pathological fracture (principal); Z79.899 Other long term (current) drug therapy
CPT/HCPCS: 36415; 80069; 82306; 83970; 84439; 84443

== ENCOUNTER → 2023-09-12 | Outpatient (CLI) | payer MEDICARE, BC, SELFPAY ==
[2023-09-12 11:49] LABS: Absolute Lymphocyte Count 1.62 X10^3/uL (0.83-4.51); Basophil% 1.3 % (0-1); Eosinophil# 0.27 X10^3/uL; Eosinophils% 3.5 % (0-5); Hematocrit 40.2 % (37-47); Hemoglobin 12.4 g/dL (12.0-15.0); Lymphocyte # 1.62 X10^3/ul (0.83-4.51); Lymphocyte % 20.9 % (19-41); Mean Corp Hgb Conc 30.8 g/dL (32-36); Mean Corpuscular Hgb 27.2 pg (27.0-32.0); Mean Corpuscular Volume 88.2 fL (81-99); Mean Platelet Vol. 9.9 fl (6.2-12.0); Monocyte# 0.73 X10^3/uL; Monocyte% 9.4 % (0-10); NRBC Flagged by Analyzer 0 % (0-5); Neutrophil # 4.98 X10^3/uL (2.7-7.7); Neutrophil % 64.3 % (47-70); Platelet Count 346 K/mm3 (150-450); RBC Distribution Width CV 14.9 % (11.6-14.6); RBC Distribution Width SD 48.3 fl (35.1-43.9); Red Blood Count 4.56 M/mm3 (4.2-5.4); White Blood Count 7.8 K/mm3 (4.4-11.0)
[2023-09-12 12:11] LABS: Anion Gap 5 (5-15); BUN 22 mg/dL (7-18); BUN/Creat Ratio 19.1 RATIO (10-20); Calcium,Total 9.7 mg/dL (8.5-10.1); Chloride 105 mmol/L (98-107); Creatinine, Serum 1.15 mg/dL (0.55-1.02); EST Glomerular Filtration Rate 48 mL/min (>60); Est Glom Filt Rate - Afr Amer 58 mL/min (>60); Glucose 106 mg/dL (74-106); Magnesium 2.2 mg/dL (1.6-2.6); Potassium 4.4 mmol/L (3.5-5.1); Sodium Level 136 mmol/L (136-145)
[2023-09-12 12:16] LABS: BNP,B-Type NATRIURETIC PEPTIDE 35.6 pg/mL (0-100)
== END | disposition home or self-care (01) ==
LOC: LAB 11:00
PROVIDERS: PCP Family Medicine; Referring Provider Nurse Practitioner Family; Visit Provider Nurse Practitioner Family
DX: I47.10 Supraventricular tachycardia, unspecified (principal); R06.09 Other forms of dyspnea
CPT/HCPCS: 36415; 80048; 83735; 83880; 85025

== ENCOUNTER → 2023-09-26 | Outpatient (CLI) | payer MEDICARE, BC, SELFPAY ==
--- NOTE | 2023-09-26 13:54 | ECHOD_ITS ---
Reason For Study: Dyspnea/SOB Procedure This was a 2D Doppler, Color Flow transthoracic echocardiogram. Myocardial strain analysis was performed in this exam to aid in the assessment of cardiac function. Exam performed in department. Left Ventricle Normal LV size. The left ventricular ejection fraction is 65 %. Stage 1 diastolic dysfunction. No regional wall motion abnormalities noted. Right Ventricle Normal RV size. Normal systolic function. Atria Normal left atrium. Normal right atrium. Mitral Valve Normal mitral valve. Tricuspid Valve Normal tricuspid valve. Mild (1+) tricuspid valve insufficiency. Pulmonary artery systolic pressure is 33 mmHg. Aortic Valve Trisinus/trileaflet aortic valve. Pulmonic Valve Normal pulmonic valve. Great Vessels Normal aortic root. The pulmonary artery is normal size. Inferior vena cava collapse with respiration. Pericardium/Pleural No pericardial effusion. MMode/2D Measurements & Calculations LVIDd: 4.5 cm IVSd: 1.1 cm Ao root diam: 3.2 cm LVIDs: 2.7 cm LVPWd: 1.1 cm RVDd: 3.5 cm FS: 40.2 % LAV(MOD-bp): 32.3 ml LVAd ap4: 20.5 cm2 SV(MOD-sp4): 27.8 ml LAV(MOD-bp) Indexed: 19.1 ml/m2 LVLd ap4: 6.7 cm LAV(MOD-sp2): 28.6 ml EDV(MOD-sp4): 50.3 ml LAV(MOD-sp4): 34.6 ml EDV(sp4-el): 53.0 ml LVAs ap4: 12.3 cm2 LVLs ap4: 5.8 cm ESV(MOD-sp4): 22.5 ml ESV(sp4-el): 22.2 ml EF(MOD-sp4): 55.2 % EF(sp4-el): 58.1 % SV(sp4-el): 30.8 ml LA A4 area: 13.8 cm2 LA dimension(2D): 3.7 cm RA A4 area: 9.7 cm2 TAPSE: 1.9 cm Time Measurements MV dec time: 0.22 sec Doppler Measurements & Calculations MV E max jam: 67.6 cm/sec Lat Peak E' Jam: 6.3 cm/sec Med Peak E' Jam: 6.2 cm/sec MV A max jam: 101.4 cm/sec E/E' lat: 10.7 E/E' med: 11.0 MV E/A: 0.67 Ao V2 max: 116.6 cm/sec LV V1 max: 96.8 cm/sec MV dec slope: 312.5 cm/sec2 Ao max P.5 mmHg LV V1 max P.8 mmHg Ao V2 mean: 74.2 cm/sec Ao mean P.6 mmHg Ao V2 VTI: 21.4 cm PA V2 max: 103.5 cm/sec TR max jam: 264.5 cm/sec TR max P.0 mmHg ECHO/Echo Complete Interpretation Summary Normal LV size. The left ventricular ejection fraction is 65 %. Stage 1 diastolic dysfunction. Mild (1+) tricuspid valve insufficiency. Pulmonary artery systolic pressure is 33 mmHg. The global longitudinal strain is mildly abnormal. The global longitudinal stra in = -15.3% (abnormal). Ordering Physician: Lamin Lamas Referring Physician: Blanca Cruz Performed By: Yolanda Lamas, JUANJOSE, RVT
== END | disposition home or self-care (01) ==
LOC: CVS 13:53
PROVIDERS: PCP Family Medicine; Referring Provider Nurse Practitioner Family; Visit Provider Nurse Practitioner Family
DX: R06.09 Other forms of dyspnea (principal); I47.10 Supraventricular tachycardia, unspecified; I10 Essential (primary) hypertension
CPT/HCPCS: 93306

== ENCOUNTER → 2023-10-06 | Outpatient (CLI) | payer MEDICARE, BC, SELFPAY ==
--- NOTE | 2023-10-06 13:22 | CT_ITS ---
HISTORY: Dyspnea, new pulmonary hypertension. TECHNIQUE: CT of the chest was performed after the intravenous administration of 100 mL Isovue-300. Coronal and sagittal reformatted images. Individualized dose optimization techniques were used for this CT. 788 images. COMPARISON: 07/16/2022. 06/19/2021. FINDINGS: CENTRAL AIRWAYS: Patent. LUNGS: Very mild peripheral atelectasis and scarring bilaterally. PLEURA: No pneumothorax or significant pleural effusion. HEART/PERICARDIUM: Heart within normal limits in size with coronary artery calcification. No pericardial effusion. AORTA/VESSELS: No thoracic aortic aneurysm or dissection flap. Mild atherosclerosis. No large central filling defect identified in the pulmonary arteries. MEDIASTINUM/DONTAE: No pathologically enlarged lymph nodes. 5 mm right thyroid nodule. OSSEOUS STRUCTURES: Interval vertebroplasty of T8 compression fracture. Old fracture of the sternum. UPPER ABDOMEN: Small hiatal hernia. Decreased size and number of hepatic lesions with mild residual scarring or lesion in the right hepatic lobe. CT/Chest WITH Contrast IMPRESSION: No evidence for acute abnormality in the chest. Resolution of right pleural effusion. Decreased size of mass in the right hepatic lobe. Electronically Signed: Katherine Walker MD at 14:04 EDT ,
== END | disposition home or self-care (01) ==
LOC: CT 13:20
PROVIDERS: PCP Family Medicine; Referring Provider Family Medicine; Visit Provider Family Medicine
DX: R06.09 Other forms of dyspnea (principal)
CPT/HCPCS: 71260; Q9967; A4216

== ENCOUNTER → 2023-11-04 | Outpatient (CLI) | payer MEDICARE, BC, SELFPAY ==
[2023-11-04 12:39] LABS: ALB/GLOB Ratio 0.9 RATIO (0.9-2.4); AST(SGOT) 60 U/L (15-37); Alanine Aminotransfer ALT/SGPT 49 U/L (13-56); Albumin, Serum 3.6 g/dL (3.2-5.0); Alkaline Phosphatase 350 U/L (45-117); Anion Gap 6 (5-15); BUN 17 mg/dL (7-18); BUN/Creat Ratio 19.9 RATIO (10-20); Calcium,Total 9.5 mg/dL (8.5-10.1); Chloride 109 mmol/L (98-107); Creatinine, Serum 0.85 mg/dL (0.55-1.02); EST Glomerular Filtration Rate 68 mL/min (>60); Est Glom Filt Rate - Afr Amer 82 mL/min (>60); Globulin 3.8 g/dL (2.2-4.2); Glucose 133 mg/dL (74-106); Magnesium 1.7 mg/dL (1.6-2.6); Potassium 4.3 mmol/L (3.5-5.1); Protein, Total 7.4 g/dL (6.4-8.2); Sodium Level 141 mmol/L (136-145)
== END | disposition home or self-care (01) ==
PROVIDERS: PCP Family Medicine; Referring Provider Internal Medicine Endocrinology, Diabetes & Metabolism; Visit Provider Internal Medicine Endocrinology, Diabetes & Metabolism
DX: I10 Essential (primary) hypertension (principal); Z79.899 Other long term (current) drug therapy
CPT/HCPCS: 36415; 80053; 83735

== ENCOUNTER → 2023-11-07 | Outpatient (CLI) | payer MEDICARE, BC, SELFPAY | END | disposition home or self-care (01) | PROVIDERS: PCP Family Medicine; Referring Provider Internal Medicine Pulmonary Disease; Visit Provider Internal Medicine Pulmonary Disease | DX: I27.20 Pulmonary hypertension, unspecified (principal) | CPT/HCPCS: 36415 ==

== ENCOUNTER → 2024-02-27 | Outpatient (CLI) | payer MEDICARE, BC, SELFPAY ==
[2024-02-27 12:36] LABS: Absolute Lymphocyte Count 1.71 X10^3/uL (0.83-4.51); Absolute Neutrophil Count 4.3 X10^3/uL (2.0-7.7); Basophil# 0.08 X10^3/uL; Basophil% 1.1 % (0-1); Eosinophils% 4.2 % (0-5); Hematocrit 34.9 % (37-47); Hemoglobin 11.2 g/dL (12.0-15.0); Lymphocyte # 1.71 X10^3/ul (0.83-4.51); Lymphocyte % 23.7 % (19-41); Mean Corp Hgb Conc 32.1 g/dL (32-36); Mean Corpuscular Hgb 26.7 pg (27.0-32.0); Mean Corpuscular Volume 83.3 fL (81-99); Mean Platelet Vol. 9.6 fl (6.2-12.0); Monocyte# 0.78 X10^3/uL; Monocyte% 10.8 % (0-10); NRBC Flagged by Analyzer 0 % (0-5); Neutrophil # 4.33 X10^3/uL (2.7-7.7); Neutrophil % 59.9 % (47-70); Platelet Count 286 K/mm3 (150-450); RBC Distribution Width CV 16.4 % (11.6-14.6); RBC Distribution Width SD 49.7 fl (35.1-43.9); Red Blood Count 4.19 M/mm3 (4.2-5.4); White Blood Count 7.2 K/mm3 (4.4-11.0)
[2024-02-27 13:07] LABS: ALB/GLOB Ratio 0.9 RATIO (0.9-2.4); AST(SGOT) 33 U/L (15-37); Alanine Aminotransfer ALT/SGPT 21 U/L (13-56); Albumin, Serum 3.6 g/dL (3.2-5.0); Alkaline Phosphatase 162 U/L (45-117); Anion Gap 3 (5-15); BUN 20 mg/dL (7-18); BUN/Creat Ratio 19.8 RATIO (10-20); Calcium,Total 9.2 mg/dL (8.5-10.1); Chloride 102 mmol/L (98-107); Creatinine, Serum 1.01 mg/dL (0.55-1.02); EST Glomerular Filtration Rate 56 mL/min (>60); Est Glom Filt Rate - Afr Amer 67 mL/min (>60); Globulin 3.8 g/dL (2.2-4.2); Glucose 84 mg/dL (74-106); LDH 170 U/L (84-246); Potassium 3.4 mmol/L (3.5-5.1); Protein, Total 7.4 g/dL (6.4-8.2); Sodium Level 138 mmol/L (136-145)
[2024-03-01 06:09] LABS: Chromogranin A 381.4 ng/mL (0.0-101.8); Gastrin, Serum 881 pg/mL (0-115)
== END | disposition home or self-care (01) ==
LOC: LAB 12:09
PROVIDERS: PCP Family Medicine; Referring Provider Internal Medicine Medical Oncology; Visit Provider Internal Medicine Medical Oncology
DX: C7A.8 Other malignant neuroendocrine tumors (principal); C7B.8 Other secondary neuroendocrine tumors
CPT/HCPCS: 36415; 80053; 82941; 83615; 85025; 86316

== ENCOUNTER → 2024-03-07 | Outpatient (CLI) | payer MEDICARE, BC, SELFPAY ==
[2024-03-13 19:06] LABS: 5-HIAA, 24UR 16.5 mg/24 hr (0.0-14.9); 5-HIAA, UR 18.3 mg/L (Undefined)
== END | disposition home or self-care (01) ==
LOC: LABSPEC 13:58
PROVIDERS: PCP Family Medicine; Referring Provider Internal Medicine Medical Oncology; Visit Provider Internal Medicine Medical Oncology
DX: C7A.8 Other malignant neuroendocrine tumors (principal); C7B.8 Other secondary neuroendocrine tumors
CPT/HCPCS: 81050; 83497

== ENCOUNTER → 2024-03-19 | Outpatient (CLI) | payer MEDICARE, BC, SELFPAY ==
[2024-03-19 13:15] LABS: Anion Gap 10 (5-15); BUN 13 mg/dL (7-18); BUN/Creat Ratio 14.1 RATIO (10-20); Calcium,Total 9.1 mg/dL (8.5-10.1); Chloride 96 mmol/L (98-107); Creatinine, Serum 0.92 mg/dL (0.55-1.02); EST Glomerular Filtration Rate 62 mL/min (>60); Est Glom Filt Rate - Afr Amer 75 mL/min (>60); Glucose 93 mg/dL (74-106); Potassium 3.3 mmol/L (3.5-5.1); Sodium Level 131 mmol/L (136-145)
== END | disposition home or self-care (01) ==
LOC: MFPLAB 11:16
PROVIDERS: PCP Family Medicine; Referring Provider Family Medicine; Visit Provider Family Medicine
DX: I27.21 Secondary pulmonary arterial hypertension (principal)
CPT/HCPCS: 36415; 80048

== ENCOUNTER → 2024-04-01 | Outpatient (CLI) | payer MEDICARE, BC, SELFPAY ==
--- NOTE | 2024-04-01 12:50 | RAD_ITS ---
PROCEDURE: Lumbar spine radiographs, two views REASON FOR EXAM: Pain, degenerative disc disease TECHNIQUE: AP and lateral views of the lumbar spine were obtained. COMPARISON: None. FINDINGS: AP and lateral radiographs of the lumbar spine were obtained. Bones are osteopenic. Included portions of the pelvis and SI joints are intact. There is moderate leftward convex curvature of the mid lumbar spine on the AP view. Moderate multilevel degenerative disc and facet disease in the lumbar spine. Moderate atherosclerotic calcification of the lower abdominal aorta. No acute lumbar vertebral body fracture or focal subluxation. RAD/Lumbar Spine 2 or 3 Views IMPRESSION: Osteopenia. No acute bony abnormality of the lumbar spine. Moderate multilevel degenerative disc and facet disease in the lumbar spine. M oderate leftward convex curvature mid lumbar spine on the AP view. If there is persistent pain or clinical concern, short-term follow-up MRI evalu ation may be considered. Reading Location: [facility]
--- NOTE | 2024-04-01 12:50 | RAD_ITS ---
PROCEDURE: Thoracic spine radiographs, four views REASON FOR EXAM: Pain. Degenerative disc disease TECHNIQUE: Four views of the thoracic spine were obtained. COMPARISON: Thoracic spine CT 07/16/2022 FINDINGS: Four views of the thoracic spine were obtained. Bones are osteopenic. There is slight rightward curvature of the lower thoracic spine on the AP view. Included lungs are clear. There is exaggeration of the normal thoracic kyphosis on the lateral view. Dnsergnu-jz-tygrnh compression deformity/kyphoplasty change of T8, slightly progressed from the comparison CT study. Moderate multilevel degenerative disc and facet disease in the thoracic spine. No new acute appearing thoracic vertebral body fracture. RAD/Thoracic Spine 3 Views IMPRESSION: Osteopenia. Exaggeration of the normal thoracic kyphosis. Worsened [id number] compression deformity of T8 compared to the prior t horacic spine CT of 07/16/2022. No new or acute appearing thoracic vertebral body fracture. Multilevel degenerative disc disea se in the thoracic spine. Reading Location: [facility]
[2024-04-01 15:47] LABS: Anion Gap 8 (5-15); BUN 12 mg/dL (7-18); BUN/Creat Ratio 11.3 RATIO (10-20); Calcium,Total 9.6 mg/dL (8.5-10.1); Chloride 95 mmol/L (98-107); Creatinine, Serum 1.06 mg/dL (0.55-1.02); EST Glomerular Filtration Rate 53 mL/min (>60); Est Glom Filt Rate - Afr Amer 64 mL/min (>60); Glucose 113 mg/dL (74-106); Potassium 3.5 mmol/L (3.5-5.1); Sodium Level 132 mmol/L (136-145)
== END | disposition home or self-care (01) ==
LOC: MTLAB 12:42
PROVIDERS: PCP Family Medicine; Referring Provider Family Medicine; Visit Provider Family Medicine
DX: E87.6 Hypokalemia (principal); M51.34 Other intervertebral disc degeneration, thoracic region; M51.369 Other intervertebral disc degeneration, lumbar region without mention of lumbar back pain or lower extremity pain
CPT/HCPCS: 36415; 72072; 72100; 80048

== ENCOUNTER → 2024-06-06 | Outpatient (CLI) | payer MEDICARE, BC, SELFPAY ==
[2024-06-06 16:30] LABS: PTHIN 47 pg/mL (11-61)
[2024-06-06 16:47] LABS: Albumin, Serum 4.2 g/dL (3.4-4.8); Anion Gap 12 (5-15); BUN 13 mg/dL (4-19); BUN/Creat Ratio 15.3 RATIO (10-20); Calcium,Total 9.6 mg/dL (7.6-11.0); Carbon Dioxide 27.9 mmol/L (21.0-32.0); Chloride 94 mmol/L (98-108); Creatinine, Serum 0.84 mg/dL (0.70-1.20); EST Glomerular Filtration Rate 69 (>60); Glucose 95 mg/dL (70-99); Magnesium 1.6 mg/dL (1.5-2.2); Phosphorus 3.5 mg/dL (2.7-4.5); Potassium 3.4 mmol/L (3.3-5.1); Sodium Level 133 mmol/L (133-145); Vitamin D,25 Hydroxy 40.6 ng/mL (30-100)
[2024-06-06 17:18] LABS: Ionized Calcium Order 1.23
[2024-06-06 17:24] LABS: Hemoglobin A1c 5.7 % (<=5.6)
== END | disposition home or self-care (01) ==
LOC: LAB 14:58
PROVIDERS: PCP Family Medicine; Referring Provider Internal Medicine Endocrinology, Diabetes & Metabolism; Visit Provider Internal Medicine Endocrinology, Diabetes & Metabolism
DX: E55.9 Vitamin D deficiency, unspecified (principal); R73.01 Impaired fasting glucose; M85.89 Other specified disorders of bone density and structure, multiple sites; Z79.899 Other long term (current) drug therapy
CPT/HCPCS: 36415; 80069; 82306; 83036; 83735; 83970

== ENCOUNTER 2024-06-11 19:12 | Emergency (ER) | payer MEDICARE, BC, SELFPAY ==
[2024-06-11 19:12] VITALS: BP 139/65; PULSE 88; RESP 17; TEMP 37; O2SAT 98
[2024-06-11 19:16] VITALS: BMI 29.0
[2024-06-11 21:12] VITALS: BP 154/67; PULSE 83; RESP 18; O2SAT 92
--- NOTE | 2024-06-11 21:21 | EDS_ITS ---
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 She presents because of painful rash. She thinks she has shingles. She has not had a fever. She states she is nauseous does not feel well. She is not receiving any chemotherapy. Prior similar symptoms: No Recent Illness/Hospitalization: Yes [facility] Medical History Torn Achilles tendon Compression fracture of T8 vertebra T6 vertebral fracture Achilles rupture, left Fall Left arm pain Lymph nodes enlarged Bone metastases Lung metastases Regional lymph node metastasis present Parathyroid adenoma Primary malignant neuroendocrine neoplasm of ascending colon Neuroendocrine tumor History of stress test Wears dentures Depression Easy bruising Heartburn History of diverticulitis Non-smoker History of rheumatic fever Colon wall thickening Diarrhea Abdominal pain, RLQ Arthritis Fatigue Postoperative atrial fibrillation (02/2018) Parathyroid disease Degenerative arthritis of left foot Asthma Strain of foot, left Hyperlipidemia SVT (supraventricular tachycardia) Essential hypertension Home Medications ?Medication ?Instructions ?Recorded ?Last Taken ?Type sertraline 100 mg tablet 150 mg PO DAILY mood 5 09/25/20 07:00 History cholecalciferol (vitamin D3) 25 2,000 unit PO DAILY 09/24/20 History mcg (1,000 unit) tablet pyridoxine (vitamin B6) 50 mg 50 mg PO DAILY supplemen t 05/15/20 09/24/20 History tablet mecobalamin (vitamin B12) 1,000 1,000 mcg PO DAILY Unknown History mcg chewable tablet (B12 Active) glucosamine-chondroitin 250 mg-200 2 tab PO DAILY 03/16 09/03 Unknown History mg tablet (Osteo Bi-Flex) magnesium 250 mg tablet 250 mg PO DAILY 04/01/21 Unk nown History potassium chloride 20 mEq 20 meq PO DAILY 05/21/21 Unk nown History tablet,extended release(part/cryst) risedronate 35 mg tablet 35 mg PO QWEEK 05/21/21 Unkn own History flecainide 100 mg tablet 100 mg PO BID heart beat #18 0 tabs 07/13/23 Unknown Rx calcium citrate 1,000 mg tablet 1,000 mg PO .COMPLEX 0 08/18/23 Unknown History amlodipine 5 mg tablet 5 mg PO DAILY #90 tabs 09/13 Unknown Rx apixaban 5 mg tablet (Eliquis) 5 mg PO BID #180 tabs 1 03/06/23 Unknown Rx hydrochlorothiazide 25 mg tablet 25 mg PO QAM 01/24/24 Unknown History lisinopril 40 mg tablet 40 mg PO DAILY This is a dos e 01/24/24 Unknown History increase, patient is OUT of med. gabapentin 300 mg capsule 300 mg PO BID #90 caps 06/11 Unknown Rx oxycodone-acetaminophen 5 mg-325 1 tab PO Q6H PRN PRN pain 5 days 06/11/24 Unknown Rx mg tablet #20 TABLETS Allergy/AdvReac Type Severity Reaction Status Date / Time Iodinated Contrast Media Allergy Severe Anaphylaxis Verified 06/11/24 19:13 (Iodinated Contrast Media - IV Dye) atorvastatin AdvReac Severe STOPPED at Verified 06/11/24 19:13 [facility] for eleveated LFT Penicillins (PCN) AdvReac Intermediate Hives Verified 06/11/24 19:13 Family History Father CAD (coronary artery disease) Heart disease Hypertension Mother Hypertension Brother Hypertension Sister Hypertension Daughter Thyroid cancer Surgical History History of breast lump removal History of surgery on left wrist Hx of arthroscopic knee surgery History of hysterectomy History of appendectomy History of left heart catheterization (06/25/18) History of colonoscopy (02/2018) History of parathyroidectomy (~2013) History of cataract surgery Hx of cholecystectomy Hx of colonoscopy Social History Smoking Status: Never smoker second hand exposure: No alcohol intake: never substance use type: does not use caffeine: Yes (1) what type of physical activity do you participate in: none frequency: does not exercise elizabeth/confucianist: Presbyterian seatbelt use: always do you feel safe at home: Yes ROS ROS ED Constitutional Constitutional ED: Denies chills, fever(s) or subjective Eyes Eyes: Denies blurry vision or change in vision ENT ENT ED: Denies rhinorrhea or sore throat Cardiovascular Cardiovascular: Denies chest pain or palpitations Respiratory/Chest Respiratory/Chest: Denies cough, dyspnea or dyspnea on exertion Gastrointestinal Gastrointestinal: Reports abdominal pain and nausea; Denies constipation, diarrhea, melena or vomiting Genitourinary Genitourinary ED: Denies dysuria, hematuria or urinary frequency Musculoskeletal Musculoskeletal: Reports back pain; Denies myalgias Integumentary Reports rash and other Details: Rash does not cross midline T10-T11 dermatome. Neurologic Neurologic: Reports weakness; Denies headache(s) or paresthesias Hematologic/Lymphatic Hematologic/Lymphatic: Reports systems reviewed and no addt'l complaints, except as documented EXAM Physical Exam Const Vital Signs: 06/11/24 19:12 06/11/24 21:12 06/11/24 21:54 Temperature 98.6 F Temperature Source Oral Pulse Rate 88 83 Respiratory Rate 17 18 Respiratory Effort Normal Respiratory Pattern Normal Blood Pressure 139/65 H 154/67 H Blood Pressure Mean 89 96 Pulse Ox 98 92 Oxygen Delivery Method Room Air Room Air Positive well nourished and well developed Constitutional Narrative: Vital signs noted. She appears uncomfortable. General Appearance ED: well developed HEENT Reports moist mucous membranes HEENT Narrative: Head is atraumatic normocephalic. Ears normal. Nares patent. Eyes PERRL and EOMs intact bilaterally General Eye ED: Negative for pale conjunctiva or scleral icterus Neck no lymphadenopathy, supple and no JVD Resp normal respiratory effort and clear to auscultation bilaterally Cardio regular rate, regular rhythm, S1 normal heart sound, S2 normal heart sound and no murmurs GI non-distended and no masses; Negative for normal to inspection, nondistended, normoactive bowel sounds, non-tender or hepatosplenomegaly Back/Spine no CVA tenderness Extremity normal to inspection Neuro oriented x3 and CN's II-XII intact bilaterally Sensorium / Orientation: alert Psych mental status grossly normal Skin Skin Narrative: Herpetic rash consistent with shingles T10-T11 dermatome. This is on the left. There is no evidence infection. MDM MDM MDM Narrative Medical decision making narrative: Will treat patient's nausea with Zofran. She received morphine for the pain and started on gabapentin. Since this started 72+ hours ago antivirals are not warranted. History & Record Review Additional record(s) reviewed:: Prior inpatient record (Patient is had surgery for multiple masses right and left thorax at [facility]. She also had interventional radiology embolize vessels to her liver lesions which shrunk and resolved.), Prior ED visit and Prior labs Treatment and Re-Evaluation :: Patient was reassessed at 2200. She states the pain is markedly better. Will discharge with prescription for gabapentin and opiate analgesic. Discharge Plan Triage Chief Complaint: Fever ED Provider: Vicente Givens Dx/Rx/DC Orders Clinical Impression: VZV (varicella-zoster virus) infection, Fatigue, Essential hypertension, Neuroendocrine tumor Instructions: ED Shingles (Herpes Zoster) Prescriptions: New gabapentin 300 mg capsule 300 mg PO BID Qty: 90 0RF Rx Instructions: 1 twice a day for 3 days then 1 3 times daily oxycodone-acetaminophen 5-325 mg tablet 1 tab PO Q6H PRN PRN (Reason: pain) 5 Days Qty: 20 0RF No Action pyridoxine (vitamin B6) 50 mg tablet 50 mg PO DAILY magnesium 250 mg tablet 250 mg PO DAILY glucosamine-chondroitin [Osteo Bi-Flex] 250-200 mg tablet 2 tab PO DAILY potassium chloride 20 mEq tablet,ER particles/crystals 20 meq PO DAILY Patient Comments: TAKE 1 TABLET DAILY risedronate 35 mg tablet 35 mg PO QWEEK Patient Comments: TAKE 1 TABLET dev week flecainide 100 mg tablet 100 mg PO BID Qty: 180 3RF hydrochlorothiazide 25 mg tablet 25 mg PO QAM lisinopril 40 mg tablet 40 mg PO DAILY sertraline 100 MG tablet 150 mg PO DAILY Patient Comments: depression cholecalciferol (vitamin D3) 1,000 UNIT tablet 2,000 unit PO DAILY Patient Comments: supplement mecobalamin (vitamin B12) [B12 Active] 1,000 mcg Tablet,Chewable 1,000 mcg PO DAILY calcium citrate 1,000 mg tablet 1,000 mg PO .COMPLEX Rx Instructions: 1,000 mg orally 1 in the am, and 1/2 tab in the pm; amlodipine 5 mg tablet 5 mg PO DAILY Qty: 90 3RF Eliquis 5 mg tablet 5 mg PO BID Qty: 180 4RF Primary Care Provider: Dario Wellington Referrals: Dario Wellington MD [Primary Care Provider] - As Needed Print Language: Lithuanian Disposition Disposition: Home, Self Care
[2024-06-11] MEDS: Morphine 4 MG/ML Syringe IV (21:49)
[2024-06-11] MEDS: Gabapentin 100 MG Capsule 200 MG PO (21:49)
[2024-06-11] MEDS: Ondansetron 4 MG/2 ML Vial IV (21:49)
[2024-06-11 22:06] VITALS: BP 151/86; PULSE 72; RESP 18; TEMP 37; O2SAT 96
== END 2024-06-11 22:22 | disposition home or self-care (01) ==
PROVIDERS: Emergency Provider Emergency Medicine; PCP Family Medicine; Visit Provider Emergency Medicine
DX: R50.9 Fever, unspecified (principal); C78.5 Secondary malignant neoplasm of large intestine and rectum; C78.00 Secondary malignant neoplasm of unspecified lung; C78.7 Secondary malignant neoplasm of liver and intrahepatic bile duct; C79.51 Secondary malignant neoplasm of bone; C7A.8 Other malignant neuroendocrine tumors; R11.0 Nausea; I10 Essential (primary) hypertension; Z90.710 Acquired absence of both cervix and uterus; E78.5 Hyperlipidemia, unspecified; R53.83 Other fatigue; B02.1 Zoster meningitis; F32.A Depression, unspecified; Z79.899 Other long term (current) drug therapy; Z79.01 Long term (current) use of anticoagulants; Z90.49 Acquired absence of other specified parts of digestive tract
CPT/HCPCS: 96374; 96375; 99284; A4216; J2405

== ENCOUNTER 2024-07-15 16:05 | Outpatient (CLI) | payer MEDICARE, BC, SELFPAY ==
[2024-07-15 17:36] LABS: Absolute Lymphocyte Count 1.88 X10^3/uL (0.83-4.51); Absolute Neutrophil Count 3.8 X10^3/uL (2.0-7.7); Basophil# 0.05 X10^3/uL; Basophil% 0.7 % (0-1); Eosinophil# 0.17 X10^3/uL; Eosinophils% 2.5 % (0-5); Hematocrit 34.3 % (37-47); Hemoglobin 11.3 g/dL (12.0-15.0); Lymphocyte # 1.88 X10^3/ul (0.83-4.51); Lymphocyte % 27.2 % (19-41); Mean Corp Hgb Conc 32.9 g/dL (32-36); Mean Corpuscular Hgb 28.5 pg (27.0-32.0); Mean Corpuscular Volume 86.4 fL (81-99); Mean Platelet Vol. 9.6 fl (6.2-12.0); Monocyte# 0.96 X10^3/uL; Monocyte% 13.9 % (0-10); NRBC Flagged by Analyzer 0 % (0-5); Neutrophil # 3.82 X10^3/uL (2.7-7.7); Neutrophil % 55.1 % (47-70); Platelet Count 264 K/mm3 (150-450); RBC Distribution Width CV 15.3 % (11.6-14.6); RBC Distribution Width SD 48.8 fl (35.1-43.9); Red Blood Count 3.97 M/mm3 (4.2-5.4); White Blood Count 6.9 K/mm3 (4.4-11.0)
[2024-07-15 18:08] LABS: ALB/GLOB Ratio 1.5 RATIO (0.9-2.4); AST(SGOT) 21 U/L (<=31); Alanine Aminotransfer ALT/SGPT 10 U/L (<=34); Albumin, Serum 4.1 g/dL (3.4-4.8); Alkaline Phosphatase 117 U/L (35-104); Anion Gap 13 (5-15); BUN 16 mg/dL (4-19); BUN/Creat Ratio 16.1 RATIO (10-20); Calcium,Total 9.5 mg/dL (7.6-11.0); Carbon Dioxide 24.1 mmol/L (21.0-32.0); Chloride 95 mmol/L (98-108); Creatinine, Serum 1.01 mg/dL (0.70-1.20); EST Glomerular Filtration Rate 56 (>60); Globulin 2.7 g/dL (2.2-4.2); Glucose 114 mg/dL (70-99); LDH 162 U/L (84-246); Potassium 3.8 mmol/L (3.3-5.1); Protein, Total 6.8 g/dL (5.9-8.4); Sodium Level 132 mmol/L (133-145)
[2024-07-18 17:08] LABS: Gastrin, Serum 1431 pg/mL (0-115)
== END 2024-07-15 23:59 | disposition home or self-care (01) ==
LOC: LAB 16:07
PROVIDERS: PCP Family Medicine
DX: C7A.8 Other malignant neuroendocrine tumors (principal); D3A.8 Other benign neuroendocrine tumors
CPT/HCPCS: 36415; 80053; 82941; 83615; 85025; 86316

== ENCOUNTER → 2024-11-12 | Outpatient (CLI) | payer MEDICARE, BC, SELFPAY ==
--- OUTSIDE RECORDS SUMMARY | 2024-11-08 08:51 | XMS RPT_ITS ---
Author Name Auto Generated Organization OHIP Support Name Relationship Address Phone KATHY SANTIAGO Next of Kin Unknown Unavailable GREGORY, JERMAIN Next of Kin Unknown Unavailable WORTHY, JADE Next of Kin [address] [place], [place] Unavailable JACK, RICH Next of Kin Unknown Unavailable GREGORY, JERMAIN Next of Kin Unknown Unavailable WORTHY, JADE Next of Kin [address] [place], [place] Unavailable JACK, RICH Next of Kin Unknown Unavailable GREGORY, JERMAIN Next of Kin Unknown Unavailable WORTHY, JADE Next of Kin [address] [place] Unavailable JACK, RICH Next of Kin Unknown Unavailable GREGORY, JERMAIN Next of Kin Unknown Unavailable WORTHY, JADE Next of Kin [address] [place] Unavailable JACK, RICH Next of Kin Unknown Unavailable GREGORY, JERMAIN Next of Kin Unknown Unavailable WORTHY, JADE Next of Kin [address] [place] Unavailable JACK, RICH Next of Kin Unknown Unavailable GREGORY, JERMAIN Next of Kin Unknown Unavailable WORTHY, JADE Next of Kin [address] [place] Unavailable JACK, RICH Next of Kin Unknown Unavailable GREGORY, JERMAIN Next of Kin Unknown Unavailable WORTHY, JADE Next of Kin [address] [place] Unavailable JACK, RICH Next of Kin Unknown Unavailable GREGORY, JERMAIN Next of Kin Unknown Unavailable WORTHY, JADE Next of Kin [address] [place] Unavailable JACK, RICH Next of Kin Unknown Unavailable GREGORY, JERMAIN Next of Kin Unknown Unavailable WORTHY, JADE Next of Kin [address] [place] Unavailable JACK, RICH Next of Kin Unknown Unavailable GREGORY, JERMAIN Next of Kin Unknown Unavailable WORTHY, JADE Next of Kin [address] [place] Unavailable JACK, RICH Next of Kin Unknown Unavailable GREGORY, JERMAIN Next of Kin Unknown Unavailable WORTHY, JADE Next of Kin [address] [place] Unavailable JACK, RICH Next of Kin Unknown Unavailable GREGORY, JERMAIN Next of Kin Unknown Unavailable WORTHY, JADE Next of Kin [address] [place] Unavailable JACK, RICH Next of Kin Unknown Unavailable GREGORY, JERMAIN Next of Kin Unknown Unavailable WORTHY, JADE Next of Kin [address] [place] Unavailable JACK, RICH Next of Kin Unknown Unavailable GREGORY, JERMAIN Next of Kin Unknown Unavailable WORTHY, JADE Next of Kin [address] [place] Unavailable JACK, RICH Next of Kin Unknown Unavailable GREGORY, JERMAIN Next of Kin Unknown Unavailable WORTHY, JADE Next of Kin [address] [place] Unavailable JACK, RICH Next of Kin Unknown Unavailable GREGORY, JERMAIN Next of Kin Unknown Unavailable WORTHY, JADE Next of Kin [address] [place] Unavailable JACK, RICH Next of Kin Unknown Unavailable GREGORY, JERMAIN Next of Kin Unknown Unavailable WORTHY, JADE Next of Kin [address] [place] Unavailable JACK, RICH Next of Kin Unknown Unavailable GREGORY, JERMAIN Next of Kin Unknown Unavailable WORTHY, JADE Next of Kin [address] [place] Unavailable JACK, RICH Next of Kin Unknown Unavailable GREGORY, JERMAIN Next of Kin Unknown Unavailable WORTHY, JADE Next of Kin [address] [place] Unavailable JACK, RICH Next of Kin Unknown Unavailable GREGORY, JERMAIN Next of Kin Unknown Unavailable WORTHY, JADE Next of Kin [address] [place], [place] + JACK, RICH Next of Kin Unknown Unavailable GREGORY, JERMAIN Next of Kin Unknown Unavailable WORTHY, JADE Next of Kin [address] [place], [place] + JACK, RICH Next of Kin Unknown Unavailable GREGORY, JERMAIN Next of Kin Unknown Unavailable WORTHY, JADE Next of Kin Unknown Unavailable JACK, RICH Next of Kin Unknown Unavailable GREGORY, JERMAIN Next of Kin Unknown Unavailable WORTHY, JADE Next of Kin Unknown Unavailable JACK, RICH Next of Kin Unknown Unavailable GREGORY, JERMAIN Next of Kin Unknown Unavailable WORTHY, JADE Next of Kin Unknown Unavailable JACK, RICH Next of Kin Unknown Unavailable GREGORY, JERMAIN Next of Kin Unknown Unavailable WORTHY, JADE Next of Kin Unknown Unavailable JACK, RICH Next of Kin Unknown Unavailable GREGORY, JERMAIN Next of Kin Unknown Unavailable WORTHY, JADE Next of Kin Unknown Unavailable Care Team Providers Care Bobbin Handler Name Role Phone SUKRITHAN, GIL K Attending Unavailable SUKRITHAN, GIL K Referring Unavailable JOLLIFF, TONYA S Primary Care Unavailable SUKRITHAN, GIL K Attending Unavailable SUKRITHAN, GIL K Referring Unavailable JOLLIFF, TONYA S Primary Care Unavailable SUKRITHAN, GIL K Attending Unavailable JOLLIFF, TONYA S Referring Unavailable JOLLIFF, TONYA S Primary Care Unavailable CLINT DIAZ B Attending Unavailable SUKRITHAN, GIL K Referring Unavailable JOLLIFF, TONYA S Primary Care Unavailable JOLLIFF, TONYA S Primary Care Unavailable OHLANA Attending Unavailable OHLANA Referring Unavailable SUKRITHAN, GIL K Referring Unavailable SUKRITHAN, GIL K Attending Unavailable JOLLIFF, TONYA S Primary Care Unavailable SUKRITHAN, GIL K Attending Unavailable JOLLIFF, TONYA S Referring Unavailable JOLLIFF, TONYA S Primary Care Unavailable SUKRITHAN, GIL K Referring Unavailable JOLLIFF, TONYA S Primary Care Unavailable CLINT DIAZ B Attending Unavailable SUKRITHAN, GIL K Referring Unavailable SUKRITHAN, GIL K Attending Unavailable JOLLIFF, TONYA S Primary Care Unavailable EMILY, CLINT B Attending Unavailable EMILY, CLINT B Referring Unavailable JOLLIFF, TONYA S Primary Care Unavailable EMILY, CLINT B Attending Unavailable EMILY, CLINT B Referring Unavailable JOLLIFF, TONYA S Primary Care Unavailable SUKRITHAN, GIL K Attending Unavailable JOLLIFF, TONYA S Referring Unavailable JOLLIFF, TONYA S Primary Care Unavailable SUKRITHAN, GIL K Attending Unavailable SUKRITHAN, GIL K Referring Unavailable JOLLIFF, TONYA S Primary Care Unavailable SUKRITHAN, GIL K Attending Unavailable JOLLIFF, TONYA S Primary Care Unavailable JOLLIFF, TONYA S Referring Unavailable SUKRITHAN, GIL K Attending Unavailable JOLLIFF, TONYA S Primary Care Unavailable CLINT DIAZ Referring Unavailable SUKRITHAN, GIL K Attending Unavailable SUKRITHAN, GIL K Referring Unavailable JOLLIFF, TONYA S Primary Care Unavailable SUKRITHAN, GIL K Referring Unavailable JOLLIFF, TONYA S Primary Care Unavailable CLINT DIAZ Attending Unavailable MARRACH MORRISON Attending Unavailable SELF, SELF Referring Unavailable JOLLIFF, TONYA S Primary Care Unavailable JOLLIFF, TONYA S Primary Care Unavailable SELF, SELF Referring Unavailable EMILYCLINT B Attending Unavailable JOLLIFF, TONYA S Referring Unavailable JOLLIFF, TONYA S Primary Care Unavailable KB LOWE Attending Unavailable JOLLIFF, TONYA S Primary Care Unavailable OHLANA Attending Unavailable OHLANA Referring Unavailable JOLLIFF, TONYA S Primary Care Unavailable ATTAR, TALAL Attending Unavailable ATTAR, TALAL Admitting Unavailable MARAR, RACH WOODY Attending Unavailable JOLLIFF, TONYA S Primary Care Unavailable JOLLIFF, TONYA S Referring Unavailable SUKRITHAN, GIL K Referring Unavailable SUKRITHAN, GIL K Attending Unavailable JOLLIFF, TONYA S Primary Care Unavailable SUKRITHAN, GIL K Attending Unavailable SUKRITHAN, GIL K Referring Unavailable JOLLIFF, TONYA S Primary Care Unavailable MARAR, RACH WOODY Attending Unavailable JOLLIFF, TONYA S Primary Care Unavailable JOLLIFF, TONYA S Referring Unavailable PROBLEMS DATE TYPE CONDITION / CODE ATTENDING STATUS [facility] 05/31/2021 Admitting diagnosis 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 12/08/2023 Admitting diagnosis Other specified cardiac arrhythmias / I49.8(ICD-10) RACH BABIN [facility] 12/08/2023 Admitting diagnosis Paroxysmal atrial fibrillation / I48.0(ICD-10) RACH BABIN Active [facility] 12/08/2023 Admitting diagnosis Atrial premature depolarization / I49.1(ICD-10) RACH BABIN BONG [facility] PROCEDURES No Procedure Records Found RESULTS CHROMOGRANIN A Collected: 11/08/2024 8:58 AM Status: F Source: [facility] TYPE CODE TESTS RESULT OUT OF RANGE REFERENCE UNITS LAB 998 Chromogranin A 423 High <93 ng/mL Result Comment: Impaired bentley al or hepatic function or treatment with proton pump inhibitors may result in artifactual elevations of Chromogranin A. ADDITIONAL INFORMATION The testing method is a homogeneous time-resolved immunofluorescent assay manufactured by [employer] and performed on the [employer]. Values obtained with different assay methods or kits may be different and cannot be used interchangeably. Test results cannot be interpreted as absolute evidence for the presence or absence of malignant disease. In some immunoassays, the presence of unusually high concentrations of analyte may result in a high-dose hook effect. This may result in a lower or even normal measured analyte concentration. If the reported result is inconsistent with the clinical presentation, the laboratory should be alerted for troubleshooting. For diagnostic purposes, these immunoassay results should always be assessed in conjunction with the patients medical history, clinical examination and other findings. Test Performed by: [facility] [address] [place] [address] Rehab Consultant: Lizzy Ring Ph.D.; CLIA# [id number] Performed By: #### YCHGRA ## ## [facility] (DEFAULT) [address] [address] LACTATE DEHYDROGENASE Collected: 2024 8:58 AM Status: F Source: [facility] TYPE CODE TESTS RESULT OUT OF RANGE REFERENCE UNITS LAB [id number] LD Total 139 100-190 U/L Performed By: #### LDO, CMPN #### [facility] (DEFAULT) [address] [place] [address] COMPREHENSIVE METABOLIC PANEL Collected : 11/08/2024 8:58 AM Status: F Source: [facility] TYPE CODE TESTS RESULT OUT OF RANGE REFERENCE UNITS LAB [id number] Sodium 135 135-145 mmol/L LAB [id number] Potassium 3.4 Low 3.5-5.0 mmol/L LAB [id number] Chloride 98 98-108 mmol/L LAB [id number] BUN 19 7-25 mg/dL LAB [id number] Creatinine 1.05 0.50-1.20 mg/dL LAB [id number] Glucose 100 Nonfastin -179 mg/dL; Fastin-99 mg/dL LAB [id number] Bilirubin Total 0.7 <1.5 mg/dL LAB [id number] Albumin 4.4 3.5-5.0 g/dL LAB [id number] Total Protein 7.5 6.4-8.3 g/dL LAB [id number] AST 19 10-39 U/L LAB [id number] ALP 136 High 32-126 U/L LAB [id number] Calcium 9.8 8.6-10.5 mg/dL LAB [id number] CO2 29 21-31 mmol/L LAB [id number] ALT 12 9-48 U/L LAB [id number] Bun/Crea Ratio 18 LAB [id number] Osmolality (Calculated) 285 278-305 mOsm/kg LAB [id number] Anion Gap 11 7-17 mmol/L LAB [id number] eGFR, CKD-EPI, Female 54 Low >=60 mL/min/1 .73m2 Result Comment: Reported eGF R is based on the CKD-EPI 2020 equation using creatinine, age, and sex. Performed By: #### LDO, CMPN #### [facility] (DEFAULT) [address] [place] [address] CBC AND ELECTRONIC DIFF Collected: 11/08/2024 8:58 AM Status: F Source: [facility] TYPE CODE TESTS RESULT OUT OF RANGE REFERENCE UNITS LAB [id number] WBC Count 3.95 Low 3.99-11.19 K/uL LAB [id number] RBC Count 3.44 Low 3.91-5.04 M/uL LAB [id number] Hemoglobin 10.8 Low 11.4-15.2 g/dL LAB [id number] Hematocrit 31.0 Low 34.9-44.3 % LAB [id number] Mean Cell Volume 90.1 79.6-97.7 fL LAB [id number] Mean Cell Hgb 31.4 25.9-33.9 pg LAB [id number] Mean Cell Hgb Conc 34.8 31.4-35.9 g/dL LAB [id number] RBC Distribution 14.7 10.8-14.9 % LAB [id number] Platelet Count 95 Low 150-393 K/uL Result Comment: Automated pl atelet count confirmed by manual slide review. LAB [id number] Mean Platelet Volume 9.1 8.5-12.2 fL LAB [id number] DIFF STATUS Electronic Differential LAB [id number] Segs + Bands Auto 67.6 % LAB [id number] Immature Grans % 0.0 % LAB [id number] Lymphocyte % Auto 18.2 % LAB [id number] Monocyte % Auto 11.9 % LAB [id number] Eosinophil % Auto 1.8 % LAB 7118131050 Basophil % Auto 0.5 % LAB [id number] Nucleated RBC 0.0 <=0.2 /100 WB C LAB [id number] Segs + Bands,Absolute Auto 2.67 1.64-7.28 K/uL LAB [id number] Immature Grans Absolute < <=0.08 K/uL LAB [id number] Abs Lymph Auto 0.72 Low 1.16-3.51 K/uL LAB [id number] Abs Aguada Auto 0.47 0.22-0.87 K/uL LAB [id number] Abs Eos Auto 0.07 0.00-0.42 K/uL LAB [id number] Abs Baso Auto < 0.00-0.15 K/uL Performed By: #### [email or web address] ## ## [facility] (DEFAULT) [address] [place] [address] GASTRIN - NON-STIMULATED Collected: 8:58 AM Status: F Source: [facility] TYPE CODE TESTS RESULT OUT OF RANGE REFERENCE UNITS LAB [address] Gastrin 1611 High pg/mL Result Comment: REFERENCE VALUE <100 Reference ranges valid for >= 8 hour fast. Test Performed by: [facility] [address] [place] [address] Rehab Consultant: Lizzy Ring Ph.D.; CLIA# [id number] Performed By: #### GSTR #### [facility] (DEFAULT) [address] [place] [address] NUC LARRY-177 DOTATATE THERAPY Observed: 12:22 PM Status: F Source: [facility] EXAM: NUC LARRY-177 DOTATATE MITRA VILLALTA, 09/20/2024 11:43 AM CLINICAL INDICATIONS: 83-year-old female with neuroendocrine tumor. This radiopharmaceutical administration is for treatment of somatostatin receptor positive malignant/metastatic disease. COMPARISON: NUC PET HEAD TO THIGH June 14, 2024 TECHNIQUE: The patient's labs dated September 06, 2024 were evaluated and approved for subsequent therapy by Dr. Lara on September 20, 2024 prior to therapy on September 20, 2024. The patient's somatostatin receptor PET/CT study dated June 14, 2024 was reviewed. After all the patient's questions were answered, written informed consent was obtained from the patient. The pre-admission time-out was completed by Dr. Lara (Nuclear Medicine attending and Authorized User). After verifying that the intravenous amino acid infusion via the patient's right arm IV access site had been continuously administered for at least 30 minutes, 200 mCi of Larry-177 DOTATATE (Lutathera) was injected intravenously using a syringe pump at 70 mL/hr. The total volume of Lutathera dose was 24 mL. This slow continuous intravenous infusion of Lutathera was completed over 21 minutes via the patients left arm IV access site. Per institutional protocol, this was followed by a flush of 10 mL of normal saline into the empty dose syringe and microbore tubing by the medical imaging technologist. The medical imaging technologist then slowly administered this saline flush via the patients left arm IV over 1-2 minutes. No immediate complications were noted by the patient, nuclear medicine technologists, or Authorized User. This is the patient's second administration of Lutathera. Lutathera was administered under the supervision of Dr. Lara (Nuclear Medicine attending and Authorized User.) IMPRESSION: Intravenous administration of Lutathera (Lutetium-177 DOTATATE) for treatment of somatostatin receptor positive malignant/metastatic disease. -PRO B-TYPE NATRIURETIC PEPTIDE Collected: 09/18/2024 9:01 AM Status: F Source: [facility] TYPE CODE TESTS RESULT OUT OF RANGE REFERENCE UNITS LAB [id number] NT-Pro B-Type Natriuretic Peptide 164 <=540 pg/mL Performed By: #### YNTBNP ## ## [facility] (DEFAULT) [address] [place] [address] CBC AND ELECTRONIC DIFF Collected: 08/14 10:02 AM Status: F Source: [facility] TYPE CODE TESTS RESULT OUT OF RANGE REFERENCE UNITS LAB [id number] WBC Count 4.36 3.99-11.19 K/uL LAB [id number] RBC Count 3.84 Low 3.91-5.04 M/uL LAB [id number] Hemoglobin 11.4 11.4-15.2 g/dL LAB [id number] Hematocrit 33.7 Low 34.9-44.3 % LAB [id number] Mean Cell Volume 87.8 79.6-97.7 fL Result Comment: Results inco nsistent with previous results LAB [id number] Mean Cell Hgb 29.7 25.9-33.9 pg LAB [id number] Mean Cell Hgb Conc 33.8 31.4-35.9 g/dL LAB [id number] RBC Distribution 15.9 High 10.8-14.9 % LAB [id number] Platelet Count 154 150-393 K/uL Result Comment: Results inco nsistent with previous results. LAB [id number] Mean Platelet Volume 9.4 8.5-12.2 fL LAB [id number] DIFF STATUS Electronic Differential LAB [id number] Segs + Bands Auto 65.5 % LAB [id number] Immature Grans % 0.5 % LAB [id number] Lymphocyte % Auto 20.6 % LAB [id number] Monocyte % Auto 10.6 % LAB [id number] Eosinophil % Auto 2.1 % LAB [id number] Basophil % Auto 0.7 % LAB [id number] Nucleated RBC 0.0 <=0.2 /100 WB C LAB [id number] Segs + Bands,Absolute Auto 2.86 1.64-7.28 K/uL LAB [id number] Immature Grans Absolute < <=0.08 K/uL LAB [id number] Abs Lymph Auto 0.90 Low 1.16-3.51 K/uL LAB [id number] Abs Aguada Auto 0.46 0.22-0.87 K/uL LAB [id number] Abs Eos Auto 0.09 0.00-0.42 K/uL LAB [id number] Abs Baso Auto < 0.00-0.15 K/uL Performed By: #### [id number] ## ## [facility] (DEFAULT) [address] [address] LACTATE DEHYDROGENASE Collected: 2024 10:02 AM Status: F Source: [facility] TYPE CODE TESTS RESULT OUT OF RANGE REFERENCE UNITS LAB [id number] LD Total 170 100-190 U/L Performed By: #### LDO, CMPN #### [facility] (DEFAULT) [address] [place] [address] COMPREHENSIVE METABOLIC PANEL Collected : 09/06/2024 10:02 AM Status: F Source: [facility] TYPE CODE TESTS RESULT OUT OF RANGE REFERENCE UNITS LAB [id number] Sodium 138 135-145 mmol/L LAB [id number] Potassium 3.4 Low 3.5-5.0 mmol/L LAB [id number] Chloride 102 98-108 mmol/L LAB [id number] BUN 17 7-25 mg/dL LAB [id number] Creatinine 0.86 0.50-1.20 mg/dL LAB [id number] Glucose 115 Nonfastin -179 mg/dL; Fastin-99 mg/dL LAB [id number] Bilirubin Total 0.6 <1.5 mg/dL LAB [id number] Albumin 4.2 3.5-5.0 g/dL LAB [id number] Total Protein 7.2 6.4-8.3 g/dL LAB [id number] AST 22 10-39 U/L LAB [id number] ALP 132 High 32-126 U/L LAB [id number] Calcium 9.6 8.6-10.5 mg/dL LAB [id number] CO2 26 21-31 mmol/L LAB [id number] ALT 12 9-48 U/L LAB [id number] Bun/Crea Ratio 20 LAB [id number] Osmolality (Calculated) 290 278-305 mOsm/kg LAB [id number] Anion Gap 13 7-17 mmol/L LAB [id number] eGFR, CKD-EPI, Female 68 >=60 mL/min/1 .73m2 Result Comment: Reported eGF R is based on the CKD-EPI 2020 equation using creatinine, age, and sex. Performed By: #### LDO, CMPN #### [facility] (DEFAULT) [address] [place] [address] GASTRIN - NON-STIMULATED Collected: 10:02 AM Status: F Source: [facility] TYPE CODE TESTS RESULT OUT OF RANGE REFERENCE UNITS LAB [address] Gastrin 1534 High pg/mL Result Comment: REFERENCE VALUE <100 Reference ranges valid for >= 8 hour fast. Test Performed by: [facility] [place] [address] Rehab Consultant: Lizzy Ring Ph.D.; CLIA# [id number] Performed By: #### GSTR #### [facility] (DEFAULT) [address] [place] [address] CHROMOGRANIN A Collected: 10:02 AM Status: F Source: [facility] TYPE CODE TESTS RESULT OUT OF RANGE REFERENCE UNITS LAB 998 Chromogranin A 492 High <93 ng/mL Result Comment: Impaired bentley al or hepatic function or treatment with proton pump inhibitors may result in artifactual elevations of Chromogranin A. ADDITIONAL INFORMATION The testing method is a homogeneous time-resolved immunofluorescent assay manufactured by [employer] and performed on the [employer]. Values obtained with different assay methods or kits may be different and cannot be used interchangeably. Test results cannot be interpreted as absolute evidence for the presence or absence of malignant disease. In some immunoassays, the presence of unusually high concentrations of analyte may result in a high-dose hook effect. This may result in a lower or even normal measured analyte concentration. If the reported result is inconsistent with the clinical presentation, the laboratory should be alerted for troubleshooting. For diagnostic purposes, these immunoassay results should always be assessed in conjunction with the patients medical history, clinical examination and other findings. Test Performed by: [facility] [place] [address] Rehab Consultant: Lizzy Ring Ph.D.; CLIA# [id number] Performed By: #### YCHGRA ## ## [facility] (DEFAULT) [address] [place] [address] NUC LARRY-177 DOTATATE THERAPY Observed: 2:01 PM Status: F Source: [facility] EXAM: NUC LARRY-177 DOTATATE TH AMBAR, 07/26/2024 10:18 AM CLINICAL INDICATIONS: This radiopharmaceutical administration is for treatment of somatostatin receptor positive malignant/metastatic disease. COMPARISON: No prior studies available for comparison. TECHNIQUE: The patient's recent labs were evaluated by the clinical team. Recent imaging studies were reviewed. After all the patient's questions were answered, written informed consent was obtained from the patient. 200 mCi of Larry-177 Dotatate (LutaThera) was injected intravenously for treatment of neuroendocrine malignancy using the syringe pump at 70 ml/hr. Infusion occurred over 21 minutes through the patient's right arm IV. Radiopharmaceutical was administered under the supervision of Dr. Ring. No immediate complications were noted. This is the patient's first administration of LutaThera. FINDINGS/IMPRESSION: Uneventful administration of Luttetium -177 Dotatate therapy PET HEAD TO THIGH Observed: 06/19/19 2:27 PM Status: F Source: [facility] EXAM: NUC PET HEAD TO THIGH, 06/14/2024 10:07 AM CLINICAL INDICATIONS: NET, COMPARISON: PET/CT 06/30/2023. MRI abdomen 06/07/[address] DOSE: DLP: 527 mGy x cm kVp: 120 TECHNIQUE: Approximately 55 minutes following the intravenous injection of Ga-68 Dotatate 5.2 mCi, the patient was positioned on the Siemens Biograph mCT TOF< PET/CT-64, [place] imaging unit. A low resolution non-contrast CT was obtained from the top of the head through the mid-femurs for use in attenuation correction and anatomic correlation. PET emission scans of this anatomic region were acquired shortly thereafter. Axial, sagittal, coronal and maximal intensity projection reconstruction images were presented for interpretation. FINDINGS: Head/Neck: Physiologic activity seen within the pituitary gland, salivary glands, and thyroid. Chest: Redemonstration of tracer avid nodule abutting the medial right major fissure, stable with tracer activity of 3.8, previously 6.2. Interval increase in size and activity of trace avid small right internal mammary lymph node,, now 0.6 cm SUV max 21.4, previously 0.3 cm SUV max 7.2. There are few new minimally avid left axillary and right axillary isaiah activity in benign appearing relatively stable sized lymph nodes for example a left axillary node has an SUV of 2.3. Abdomen/Pelvis: Intense physiologic uptake seen within the spleen and adrenal glands which can obscure potential disease in these structures. Interval increase in size of existing multiple tracer avid foci in the liver for example left hepatic lobe lesion measures approximately 3.7 x 4.7 cm SUV max 47.2, previously 2.2 x 2.4 cm SUV max 57.0; another lesion in right hepatic lobe has an SUV of 33.8, previously 25.2, image 121 on series 3. The dominant focus in the left hepatic lobe with maximum SUV significant greater than 2 times of mean SUV of the liver. Redemonstration of tracer avid foci in the abdomen and pelvis corresponding to mesenteric nodules, with increase in size and tracer avidity compared to prior study for example a presacral node with SUV max 22.0, previously 22.5 however appear more extensive measuring up to 0.8 cm, previously 0.4 cm. Musculoskeletal: No definite suspicious tracer avid osseous foci. IMPRESSION: Overall progression with interval increase in extent of tracer avidity and increase in size of the existing disease involving the nodule in the medial right major fissure, right internal mammary lymph node, hepatic foci and mesenteric foci in the abdomen and pelvis. CHEST WITHOUT CONTRAST Observed: 05/15 6:01 PM Status: F Source: [facility] EXAM: CT CHEST WITHOUT CONTR AST COMPARISON: January 01, 2024 CLINICAL INDICATIONS: ongoing disease burden evaluation TECHNIQUE: Non contrast axial CT images of the chest 5 mm with 1 mm contiguous high-resolution, coronal MIP and sagittal MPR series. FINDINGS: Stable 6 mm round nodule centrally within the superior right lower lobe series 3 image 104 No new suspicious pulmonary nodule, mass, infiltrate or pleural effusion Stable mild biapical pleural-parenchymal lung scarring Patent airways Very minimal motion unsharpness No new adenopathy in the chest or axilla No new pericardial effusion Partial mitral valve annular ring calcification Minimal hyperdense myocardium sign No new aggressive osteolytic or blastic bony lesion Stable wedge compression and vertebroplasty mid thoracic vertebral body Old sternal fracture deformities series 5 image 42 Bones are moderately demineralized No new suspicious finding limited upper abdomen Stable 3 x 3.7 cm low density region in the left hepatic lobe series 2 image 51, appears more conspicuous than on prior examination with similar in size IMPRESSION: 1. Stable exam findings, no evidence of new primary or metastatic neoplasia in the chest 2. Minimal hyperdense myocardium sign, this typically suggests anemia, correlate with H3. Likely stable subtle 3 x 3.7 cm low density region in the left hepatic lobe series 2 image 51, correlate with abdomen/pelvis CT exam findings as deemed clinically appropriate Bennie Wilde M.D. This report has been electronically signed and verified by the Radiologist whose name is printed above. This report contains privileged and confidential information and is intended solely for the use of the individual or entity to which it is addressed. If you are not the intended recipient of this report, you are hereby notified that any copying, distribution, dissemination or action taken in relation to the contents of this report is strictly prohibited and may be unlawful. If you have received this report in error, please notify the sender immediately at [phone] and permanently delete the original report and destroy any copies or printouts. 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 CONTRAST: Gadopiclenol SOLN 1-25 mL; Route of Administration: Intravenous; Dose: 6.6 mL. FINDINGS: Lung Bases: Please see dedicated chest CT scan of the same date for full description of the intra-thoracic contents. Liver: Normal morphology and signal. Several right and left lobe arterially enhancing lesions are consistent with metastatic disease. Previously measured lesions as below: *Posterior segment 2 lesion is more heterogeneously arterially enhancing and has increased in size measuring 5.0 x 3.3 cm (series 18 image 28), previously 3.3 x 2.4 cm. *Segment 4B/5 lesion measures 1.3 x 1.1 cm (series 18 image 42), previously 1.1 x 0.9 cm. *Multiple other nonindex lesions with associated restricted diffusion are also slightly increased in size (series 18 images 18, 23, 27, 46, and 40). *A few nonindex lesions are not significantly changed, for example in medial segment 8 and segment 3 (series 18 image is 22 and 37). No new lesions. Decreased geographic arterial hyperenhancement in subcapsular segment 7 which may be perfusional but attention on follow-up is recommended. Gallbladder: Cholecystectomy. Bile Ducts: Normal in caliber. Spleen: Normal. Pancreas: Mildly atrophic. No ductal dilatation. Adrenals: Normal. Right Kidney: Normal. No hydronephrosis. Left Kidney: Normal. No hydronephrosis. Gastrointestinal: No bowel dilation or wall thickening. Duodenal diverticula. Peritoneum/retroperitoneum: No ascites. Lymph nodes: No enlarged or morphologically abnormal lymph nodes. Vasculature: The abdominal aorta is normal in course and caliber. Patent celiac and superior mesenteric arteries. Patent portal, splenic, and superior mesenteric veins. Body Wall: Normal. Bones: Multilevel degenerative changes of the spine. Other: The avid pelvic lesions seen on prior neuroendocrine PET are again not within the vggoe-ue-gvsu of this abdominal only study. 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 MOGRANIN A Collected: 06/07/2024 8:19 AM Status: F Source: [facility] TYPE CODE TESTS RESULT OUT OF RANGE REFERENCE UNITS LAB 998 Chromogranin A 317 High <93 ng/mL Result Comment: Impaired bentley al or hepatic function or treatment with proton pump inhibitors may result in artifactual elevations of Chromogranin A. ADDITIONAL INFORMATION The testing method is a homogeneous time-resolved immunofluorescent assay manufactured by [employer] and performed on the [employer]. Values obtained with different assay methods or kits may be different and cannot be used interchangeably. Test results cannot be interpreted as absolute evidence for the presence or absence of malignant disease. In some immunoassays, the presence of unusually high concentrations of analyte may result in a high-dose hook effect. This may result in a lower or even normal measured analyte concentration. If the reported result is inconsistent with the clinical presentation, the laboratory should be alerted for troubleshooting. For diagnostic purposes, these immunoassay results should always be assessed in conjunction with the patients medical history, clinical examination and other findings. Test Performed by: [facility] [address] [place] [address] Rehab Consultant: Lizzy Ring Ph.D.; CLIA# [id number] Performed By: #### YCHGRA ## ## [facility] (DEFAULT) [address] [place] [address] LACTATE DEHYDROGENASE Collected: 2024 8:19 AM Status: F Source: [facility] TYPE CODE TESTS RESULT OUT OF RANGE REFERENCE UNITS LAB [id number] LD Total 126 100-190 U/L Performed By: #### LDO, CMPN #### [facility] (DEFAULT) [address] [place] [address] COMPREHENSIVE METABOLIC PANEL Collected : 06/07/2024 8:19 AM Status: F Source: [facility] TYPE CODE TESTS RESULT OUT OF RANGE REFERENCE UNITS LAB [id number] Sodium 130 Low 135-145 mmol/L LAB [id number] Potassium 3.7 3.5-5.0 mmol/L LAB [id number] Chloride 91 Low 98-108 mmol/L LAB [id number] BUN 15 7-25 mg/dL LAB [id number] Creatinine 0.82 0.50-1.20 mg/dL LAB [id number] Glucose 147 Nonfastin -179 mg/dL; Fastin-99 mg/dL LAB [id number] Bilirubin Total 0.6 <1.5 mg/dL LAB [id number] Albumin 4.5 3.5-5.0 g/dL LAB [id number] Total Protein 7.7 6.4-8.3 g/dL LAB [id number] AST 20 10-39 U/L LAB [id number] ALP 121 32-126 U/L LAB [id number] Calcium 10.1 8.6-10.5 mg/dL LAB [id number] CO2 28 21-31 mmol/L LAB [id number] ALT 15 9-48 U/L LAB [id number] Bun/Crea Ratio 18 LAB [id number] Osmolality (Calculated) 277 Low 278-305 mOsm/kg LAB [id number] Anion Gap 15 7-17 mmol/L LAB [id number] eGFR, CKD-EPI, Female 72 >=60 mL/min/1 .73m2 Result Comment: Reported eGF R is based on the CKD-EPI 2020 equation using creatinine, age, and sex. Performed By: #### LDO, CMPN #### [facility] (DEFAULT) [address] [place], [place] [id number] GASTRIN - NON-STIMULATED Collected: 8:19 AM Status: F Source: [facility] TYPE CODE TESTS RESULT OUT OF RANGE REFERENCE UNITS LAB 93596 Gastrin 1315 High pg/mL Result Comment: REFERENCE VALUE <100 Reference ranges valid for >= 8 hour fast. Test Performed by: [facility] [address] [place] [address] Rehab Consultant: Lizzy Ring Ph.D.; CLIA# [id number] Performed By: #### GSTR #### [facility] (DEFAULT) [address] [place] [address] CBC AND ELECTRONIC DIFF Collected: 06/07/2024 8:19 AM Status: F Source: [facility] TYPE CODE TESTS RESULT OUT OF RANGE REFERENCE UNITS LAB [id number] WBC Count 8.21 3.99-11.19 K/uL LAB [id number] RBC Count 4.25 3.91-5.04 M/uL LAB [id number] Hemoglobin 11.8 11.4-15.2 g/dL LAB [id number] Hematocrit 35.3 34.9-44.3 % LAB [id number] Mean Cell Volume 83.1 79.6-97.7 fL LAB [id number] Mean Cell Hgb 27.8 25.9-33.9 pg LAB [id number] Mean Cell Hgb Conc 33.4 31.4-35.9 g/dL LAB [id number] RBC Distribution 15.0 High 10.8-14.9 % LAB [id number] Platelet Count 325 150-393 K/uL LAB [id number] Mean Platelet Volume 9.1 8.5-12.2 fL LAB [id number] DIFF STATUS Electronic Differential LAB [id number] Segs + Bands Auto 86.3 % LAB [id number] Immature Grans % 0.6 % LAB [id number] Lymphocyte % Auto 11.4 % LAB [id number] Monocyte % Auto 1.6 % LAB [id number] Eosinophil % Auto 0.0 % LAB [id number] Basophil % Auto 0.1 % LAB [id number] Nucleated RBC 0.0 <=0.2 /100 WB C LAB [id number] Segs + Bands,Absolute Auto 7.08 1.64-7.28 K/uL LAB [id number] Immature Grans Absolute 0.05 <=0.08 K/uL LAB [id number] Abs Lymph Auto 0.94 Low 1.16-3.51 K/uL LAB [id number] Abs Aguada Auto 0.13 Low 0.22-0.87 K/uL LAB [id number] Abs Eos Auto < 0.00-0.42 K/uL LAB [id number] Abs Baso Auto < 0.00-0.15 K/uL Performed By: #### [id number] ## ## [facility] (DEFAULT) [address] [place] [address] CT CHEST WITHOUT CONTRAST Observed: 12/15 6:41 PM Status: F Source: [facility] EXAM: CT CHEST WITHOUT CONTR AST, 01/01/2024 11:14 AM COMPARISON: CT CHEST WITHOUT CONTRAST March 24, 2023 CLINICAL INDICATIONS: neuroendocrine tumor; RELEVANT CLINICAL HISTORY: 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 FINDINGS: Lungs and Pleura: Stable smoothly marginated nodule in superior segment of right lower lobe measuring 0.7 cm x 0.6 cm (series 3, image 109) previously 0.7 x 0.7 cm. No new or enlarging lesions. Atelectasis. No pneumothorax or consolidation. Tracheobronchial tree: No abnormality. Mediastinum/Zakia: No mediastinal or hilar lymphadenopathy. Axilla and Supraclavicular Regions: No axillary or supraclavicular adenopathy. Cardiovascular: The cardiac chambers are within normal limits. The pericardium is normal. The aorta and its arch branch vessels are unremarkable. The pulmonary arteries are also unremarkable. Coronary calcification. Mitral valve calcification. Upper Abdomen: Review separately reported MRI from the same day for discussion of these structures. Bones and Soft Tissue: Multilevel degenerative changes. Remote appearing mid thoracic spine compression fractures and vertebroplasty at T8. IMPRESSION: 1. Continued stability of a left lower lobe nodule. No new or enlarging nodules. 2. No interval adenopathy within limits of noncontrast CT chest. 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 CONTRAST: Gadopiclenol SOLN 1-25 mL; Route of Administration: Intravenous; Dose: 6.7 mL. FINDINGS: Lung Bases: Please see dedicated chest CT scan of the same date for full description of the intra-thoracic contents. Liver: Stable size and morphology. Diffuse steatosis. Previously measured liver lesions are as follows: * Left hepatic lobe measuring 3.3 x 2.4 cm (17/35), previously 3.2 x 2.4 cm. This lesion demonstrates restricted diffusion (39-40/13). * Segment 4B/5 lesion measures 1.1 x 0.9 cm with more pronounced washout on today's study (), previously measured 1.1 x 1.0 cm. Few additional arterial enhancing lesions which appear grossly similar in size to prior examination. Gallbladder: Cholecystectomy. Bile Ducts: Normal in caliber. Spleen: Normal. Pancreas: There are a few tiny ectatic sidebranches, similar to prior. No main pancreatic duct dilation. Similar parenchymal atrophy. Adrenals: Normal. Right Kidney: Normal. No hydronephrosis. Left Kidney: Normal. No hydronephrosis. Gastrointestinal: No bowel dilation or wall thickening. Second segment duodenal diverticula. Peritoneum/retroperitoneum: No ascites. Lymph nodes: No enlarged or morphologically abnormal lymph nodes. Vasculature: The abdominal aorta is normal in course and caliber. Patent celiac and superior mesenteric arteries. Patent portal, splenic, and superior mesenteric veins. Body Wall: Normal. Bones: Levoscoliosis of the lumbar spine with multilevel degenerative changes. No aggressive lesion. IMPRESSION: Previously measured liver lesions are grossly stable. I personally viewed and interpreted these images and I have reviewed and approved this report. AND ELECTRONIC DIFF Collected: 12/14 10:18 AM Status: F Source: [facility] TYPE CODE TESTS RESULT OUT OF RANGE REFERENCE UNITS LAB [id number] WBC Count 7.94 3.99-11.19 K/uL LAB [id number] RBC Count 4.47 3.91-5.04 M/uL LAB [id number] Hemoglobin 11.5 11.4-15.2 g/dL LAB [id number] Hematocrit 36.8 34.9-44.3 % LAB [id number] Mean Cell Volume 82.3 79.6-97.7 fL LAB [id number] Mean Cell Hgb 25.7 Low 25.9-33.9 pg LAB [id number] Mean Cell Hgb Conc 31.3 Low 31.4-35.9 g/dL LAB [id number] RBC Distribution 16.9 High 10.8-14.9 % LAB [id number] Platelet Count 292 150-393 K/uL LAB [id number] Mean Platelet Volume 10.4 8.5-12.2 fL LAB [id number] DIFF STATUS Electronic Differential LAB [id number] Segs + Bands Auto 65.3 % LAB [id number] Immature Grans % 0.3 % LAB [id number] Lymphocyte % Auto 21.9 % LAB [id number] Monocyte % Auto 8.6 % LAB [id number] Eosinophil % Auto 2.6 % LAB [id number] Basophil % Auto 1.3 % LAB [id number] Nucleated RBC 0.0 <=0.2 /100 WB C LAB [id number] Segs + Bands,Absolute Auto 5.19 1.64-7.28 K/uL LAB [id number] Immature Grans Absolute < <=0.08 K/uL LAB [id number] Abs Lymph Auto 1.74 1.16-3.51 K/uL LAB [id number] Abs Aguada Auto 0.68 0.22-0.87 K/uL LAB [id number] Abs Eos Auto 0.21 0.00-0.42 K/uL LAB [id number] Abs Baso Auto 0.10 0.00-0.15 K/uL Performed By: #### [id number] ## ## [facility] (DEFAULT) [address] [address] LACTATE DEHYDROGENASE Collected: 2023 10:18 AM Status: F Source: [facility] TYPE CODE TESTS RESULT OUT OF RANGE REFERENCE UNITS LAB [id number] LD Total 124 100-190 U/L Performed By: #### CMPN, LDO #### [facility] (DEFAULT) [address] [place] [address] COMPREHENSIVE METABOLIC PANEL Collected : 01/01/2024 10:18 AM Status: F Source: [facility] TYPE CODE TESTS RESULT OUT OF RANGE REFERENCE UNITS LAB [id number] Sodium 138 135-145 mmol/L LAB [id number] Potassium 3.8 3.5-5.0 mmol/L LAB [id number] Chloride 102 98-108 mmol/L LAB [id number] BUN 28 High 7-25 mg/dL LAB [id number] Creatinine 1.00 0.50-1.20 mg/dL LAB [id number] Glucose 102 High 70-99 mg/dL LAB [id number] Bilirubin Total 0.6 <1.5 mg/dL LAB [id number] Albumin 4.3 3.5-5.0 g/dL LAB [id number] Total Protein 7.6 6.4-8.3 g/dL LAB [id number] AST 38 10-39 U/L LAB [id number] ALP 326 High 32-126 U/L LAB [id number] Calcium 9.7 8.6-10.5 mg/dL LAB [id number] CO2 28 21-31 mmol/L LAB [id number] ALT 25 9-48 U/L LAB [id number] Bun/Crea Ratio 28 LAB [id number] Osmolality (Calculated) 294 278-305 mOsm/kg LAB [id number] Anion Gap 12 7-17 mmol/L LAB [id number] eGFR, CKD-EPI, Female 57 Low >=60 mL/min/1 .73m2 Result Comment: Reported eGF R is based on the CKD-EPI 2020 equation using creatinine, age, and sex. Performed By: #### CMPN, LDO #### [facility] (DEFAULT) [address] [place] [address] GASTRIN - NON-STIMULATED Collected: 10:18 AM Status: F Source: [facility] TYPE CODE TESTS RESULT OUT OF RANGE REFERENCE UNITS LAB 66517 Gastrin 671 High pg/mL Result Comment: REFERENCE VALUE <100 Reference ranges valid for >= 8 hour fast. Test Performed by: [facility] [address] [place] [address] Rehab Consultant: Lizzy Ring Ph.D.; CLIA# [id number] Performed By: #### GSTR #### [facility] (DEFAULT) [address] [place] [address] CHROMOGRANIN A Collected: 10:18 AM Status: F Source: [facility] TYPE CODE TESTS RESULT OUT OF RANGE REFERENCE UNITS LAB 998 Chromogranin A 364 High <93 ng/mL Result Comment: Impaired bentley al or hepatic function or treatment with proton pump inhibitors may result in artifactual elevations of Chromogranin A. ADDITIONAL INFORMATION The testing method is a homogeneous time-resolved immunofluorescent assay manufactured by [employer] and performed on the [employer]. Values obtained with different assay methods or kits may be different and cannot be used interchangeably. Test results cannot be interpreted as absolute evidence for the presence or absence of malignant disease. In some immunoassays, the presence of unusually high concentrations of analyte may result in a high-dose hook effect. This may result in a lower or even normal measured analyte concentration. If the reported result is inconsistent with the clinical presentation, the laboratory should be alerted for troubleshooting. For diagnostic purposes, these immunoassay results should always be assessed in conjunction with the patients medical history, clinical examination and other findings. Test Performed by: [facility] [address] [place] [address] Rehab Consultant: Lizzy Ring Ph.D.; CLIA# [id number] Performed By: #### YCHGRA ## ## [facility] (DEFAULT) [address] [place] [address] INVASIVE CARDIOVASCULAR PROCEDURE Observed: 12/20/2023 9:23 AM Status: F Source: [facility] Severe hypertension with SBP above 200 on arrival to the earth science laboratory technician and remained above 190 despite sedation. 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 Recommendations: - Adequate blood pressure control. - Aggressive risk factors modification. Table formatting from the original result was not included. Images from the original result were not included. Jermain Jenkins Invasive Cardiology Cath Procedure Ordering Physician: RACH BABIN Order #: [id number] Study Date: 12/15/2023 Patient Information Name MRN Description Jermain Jenkins [id number] 83 y.o. female Location Name Address [address] [address] Physicians Panel Physicians Referring Physician Case Authorizing Physician Ludy Mcdonald MD (Primary) MD Rach Oliver MBBS Procedures LEFT HEART CATHETERIZATION CORONARY ANGIOGRAM Diagnostic Peripheral Selective angiogram of the right upper extremity . A catheter was placed through the right radial artery and advanced to the right radial artery and contrast was injected. Indications Abnormal cardiovascular stress test [R94.39 (ICD-10-CM)] Shortness of breath [R06.02 (ICD-10-CM)] Coronary artery calcification [I25.10 (ICD-10-CM)] Conclusion Severe hypertension with SBP above 200 on arrival to the earth science laboratory technician and remained above 190 despite sedation. 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 Recommendations: - Adequate blood pressure control. - Aggressive risk factors modification. Medical History Diagnosis Date Comment Source Arrhythmia atrial fibrillation Essential hypertension, benign History of cancer Hyperlipidemia Rheumatic fever Medical History - Pertinent Negatives Pertinent Negative Date Comment Source Asthma 11/06/2023 Diabetes mellitus 11/06/2023 CT (myocardial infarction) 11/06/2023 Pacemaker 11/06/2023 Seizure 11/06/2023 Procedure The risks and alternatives of the procedure and sedation were explained. Informed consent was obtained. The patient was brought to the earth science laboratory technician and placed on the table. The planned puncture sites were prepped and draped in the usual sterile fashion. Coronary Findings Diagnostic Dominance: Right Left Anterior Descending Prox LAD lesion is 25% stenosed. Left Circumflex The vessel exhibits minimal luminal irregularities. Right Coronary Artery The vessel exhibits minimal luminal irregularities. Intervention No interventions have been documented. Left Heart Left Ventricle LV systolic pressure is severely elevated. LV end diastolic pressure is elevated/hypertensive. Implants Type Name Action Serial No. Other DEVICE CLOSURE PERCLOSE PROSTYLE SUTURE MEDIATE REPAIR - [id number] Implanted Fluoro Dose Fluoro Dose: 7.5 Gy-cm^2 Complications Complications documented before study signed (12/20/2023 9:23 AM) No complications were associated with this study. Documented by Ludy Mcdonald MD - 12/15/2023 9:01 AM Cardiac Window Glazier Helper Attending Physician Statement and Signature I have personally performed and/or personally supervised and was present for this entire procedure, including the review and interpretation of all images and physiologic tracings acquired during the course of this study. Signed at 1019 EDT Phase: Baseline Data Systolic (mmHg) Diastolic (mmHg) Mean (mmHg) dP/dt (mmHg/sec) A Wave (mmHg) V Wave (mmHg) AO Pressures 142 94 114 LV Pressures 200 15 Coronary Findings Diagnostic Dominance: Right Left Anterior Descending Prox LAD lesion is 25% stenosed. Left Circumflex The vessel exhibits minimal luminal irregularities. Right Coronary Artery The vessel exhibits minimal luminal irregularities. Intervention No interventions have been documented. Case Tracking Events Event Time In In Preprocedure 7:11 AM Medical History Prompt Yes/No Comments Date CT No 11/06/2023 Hypertension Yes Stroke Unanswered Vascular Disease Unanswered COPD Unanswered Diabetes No 11/06/2023 Surgical History Prompt Yes/No Procedure Laterality Comments Date CABG Unanswered Coronary Artery Bypass Graft Tobacco Use Never smoked or used smokeless tobacco. SNOMED CT?: Never smoked tobacco ([id number]). Last Resulted Components Date/Time Component Value Lab Status 12/15/23 07 CREATSERUM 0.66 Final result 12/15/23719 HGB 11.5 Final result CBC,PLATELETS Collected: 12/15/2023 7:20 AM Status: F Source: [facility] TYPE CODE TESTS RESULT OUT OF RANGE REFERENCE UNITS LAB [id number] WBC Count 6.75 3.99-11.19 K/uL LAB [id number] RBC Count 4.46 3.91-5.04 M/uL LAB [id number] Hemoglobin 11.5 11.4-15.2 g/dL LAB [id number] Hematocrit 36.1 34.9-44.3 % LAB [id number] Mean Cell Volume 80.9 79.6-97.7 fL LAB [id number] Mean Cell Hgb 25.8 Low 25.9-33.9 pg LAB [id number] Mean Cell Hgb Conc 31.9 31.4-35.9 g/dL LAB [id number] RBC Distribution 16.8 High 10.8-14.9 % LAB [id number] Platelet Count 281 150-393 K/uL LAB [id number] Mean Platelet Volume 10.3 8.5-12.2 fL Performed By: #### HEMOGC ## ## [facility] (DEFAULT) [address] [place] [address] PROTIME-INR Collected: 7:20 AM Status: F Source: [facility] TYPE CODE TESTS RESULT OUT OF RANGE REFERENCE UNITS LAB [id number] PT 14.3 High 11.9-14.2 sec LAB [id number] INR 1.1 0.9-1.1 Performed By: #### PTI #### [facility] (DEFAULT) [address] [address] CHEM 6 (LYTES, BUN CREA) Collected: 12/15/2023 7:20 A M Status: F Source: [facility] TYPE CODE TESTS RESULT OUT OF RANGE REFERENCE UNITS LAB [id number] BUN 19 7-25 mg/dL LAB [id number] Sodium 139 135-145 mmol/L LAB [id number] Potassium 3.5 3.5-5.0 mmol/L LAB [id number] Chloride 106 98-108 mmol/L LAB [id number] CO2 24 21-31 mmol/L LAB [id number] Creatinine 0.66 0.50-1.20 mg/dL LAB [id number] Bun/Crea Ratio 29 LAB [id number] Anion Gap 13 7-17 mmol/L LAB [id number] eGFR, CKD-EPI, Female 88 >=60 mL/min/1. 73m2 Result Comment: Reported eGF R is based on the CKD-EPI 2020 equation using creatinine, age, and sex. Performed By: #### CHM6 #### [facility] (DEFAULT) [address] [place] [address] LIPID PANEL W CALCULATED LDL Collected: 12/08/2023 11 :49 AM Status: F Source: [facility] TYPE CODE TESTS RESULT OUT OF RANGE REFERENCE UNITS LAB [id number] Cholesterol 210 High <200 mg/dL Result Comment: [<200 mg/dL: Desirable] [200-239 mg/dL: Borderline High] [>239 mg/dL: High] LAB [id number] Triglycerides 114 <150 mg/dL Result Comment: [<150 mg/dL: Desirable] [150-199 mg/dL: Borderline] [200-499 mg/dL: High] [>500 mg/dL: Very High] LAB [id number] HDL Cholesterol 62 >=40 mg/dL Result Comment: [<40 mg/dL: Low (High Risk)] [>59 mg/dL: High (Low Risk)] LAB [id number] Calculated LDL Cholesterol 125 High 0-99 mg/dL Result Comment: [<100 mg/dL: Optimal] [100-129 mg/dL: Near Optimal] [130-159 mg/dL: Borderline High] [160-189 mg/dL: High] [>189 mg/dL: Very High] LAB [id number] Total Cholesterol/HDL Ratio 3.4 <4.5 LAB [id number] Non HDL Cholesterol 148 High <130 mg/dL Performed By: #### HDLT, HFP #### [facility] (DEFAULT) [address] [place] [address] HEPATIC FUNCTION PANEL Collected: 12/07 11:49 AM Status: F Source: [facility] TYPE CODE TESTS RESULT OUT OF RANGE REFERENCE UNITS LAB [id number] Albumin 4.2 3.5-5.0 g/dL LAB [id number] Bilirubin Direct 0.2 <0.3 mg/dL LAB [id number] Bilirubin Total 0.7 <1.5 mg/dL LAB [id number] ALP 207 High 32-126 U/L LAB [id number] ALT 26 9-48 U/L LAB [id number] AST 38 10-39 U/L LAB [id number] Total Protein 7.3 6.4-8.3 g/dL Performed By: #### HDLT, HFP #### [facility] (DEFAULT) [address] [place] [address] ALLERGIES No Allergies Records Found ENCOUNTERS ADMIT/DISCHARGE ACCOUNT NUMBER ADMITTING ENCOUNTER CLASS LOCATION SOURCE 11/08/[id number] [facility]PITALBuild ing:[facility] 11/08/[id number] [id number] [facility] HOSPITALBuild ing:KRIMRI [facility] 09/20/[id number] [facility] HOSPITALBuild ing:CT1[facility] 09/20/[id number] [facility] 09/18/[id number] [facility] HOSPITALBuild ing:CAREAS [facility] 09/13/[id number] [facility] HOSPITALBuild ing:CT1[facility] 09/06/[id number] [facility]ITALBuild ing:[facility] 09/06/[id number] [facility] HOSPITALBuild ing:K1[facility] 07/26/[id number] [facility] HOSPITALBuild ing:CT1[facility] 07/26/[id number] [facility] HOSPITALBuild ing:BSGJCH [facility] 07/19/[id number] [facility] HOSPITALBuild ing:CT1NME [facility] 06/14/[id number] [facility] HOSPITALBuild ing:DHRPET [facility] 06/12/[id number] [facility] HOSPITALBuild ing:KJOC [facility] 06/07/[id number] [facility] HOSPITALBuild ing:JORI [facility] 06/07/[id number] [facility] HOSPITALBuild ing:JOCCTD [facility] 06/07/[id number] [facility] 03/20/[id number] [facility] HOSPITALBuild ing:KJOC [facility] 03/15/[id number] [facility] HOSPITALBuild ing:[facility] 01/10/[id number] [facility] HOSPITALBuild ing:KJND [facility] 01/10/[id number] [facility]OSPITALBuild ing:[facility] 01/01/[id number] [facility] HOSPITALBuild ing:KRRI [facility] 01/01/[id number] [facility] HOSPITALBuild ing:KRICTD [facility] 01/01/[id number] [facility]PITALBuild ing[facility] 12/15/2023/12/15/[id number] [facility] HOSPITALBuild ing:CILESTRoo m: EINVAS [facility] 12/08/[id number] [facility] HOSPITALBuild ing:[facility] PAYERS ENCOUNTER GUARANTOR PAYER SUBSCRIBER SOURCE 11/08/2024 JERMAIN SOSAOB: [id number] [place] [address]Sga: ~(330 (HP) Primary Insurance:MEDICARE A AND BPolicy Number: [id number] Date:5081-88-81Nin n Name:GABRIEL SOSAOB: 9654-37-26DIE6850 [place], [place] [address]Oxj: (HP) [facility] 11/08/2024 Secondary Insurance:ANTHEMPo licy Number: [id number] michelle Date:8765-46-00Egn n Name:[address] [address]MG: JERMAIN SOSAOB: [id number] [place], [place] [address]Vzg: (HP) [facility] 11/08/2024 JERMAIN SOSAOB: [place], [place] [address]Jkq: ~(330 (HP) Primary Insurance:MEDICARE A AND BPolicy Number: [id number] Date:7838-52-41Kmo n Name:GABRIEL SOSAOB: [id number] [place], [place] [address]Ioi: (HP) [facility] 11/08/2024 Secondary Insurance:ANTHEMPo licy Number: [id number] michelle Date:2162-73-07Nts n Name:[facility] [id number] [place] [address]OC: JERMAIN SOSAOB: [id number] [place] [address]Glw: (HP) [facility] 10/23/2024 JERMAIN ANIBAL SHEILAOB: [place], [place] [address]Caa: ~(330 (HP) Primary Insurance:MEDICARE A AND BPolicy Number: [id number] Date:2278-40-64Unw n Name:GABRIEL SOSAOB: [id number] [place] [address]Hvm: (HP) [facility] 10/23/2024 Secondary Insurance:ANTHEMPo licy Number: [id number] michelle Date:7534-88-12Oto n Name:[address] [address]GX: JERMAIN SOSAOB: [id number] [place], [place] [address]Zrg: (HP) [facility] 09/20/2024 JERMAIN SOSAOB: [place], [place] [address]Cna: ~(330 (HP) Primary Insurance:MEDICARE A AND BPolicy Number: [id number] Date:0300-19-25Jmf n Name:GABRIEL SOSAOB: [id number] [place] [address]Lik: (HP) [facility] 09/20/2024 Secondary Insurance:ANTHEMPo licy Number: [id number] michelle Date:1863-14-80Cbc n Name:[address] [address]ZX: JERMAIN SOSAOB: [id number] [place] [address]Jnn: (HP) [facility] 09/20/2024 JERMAIN SOSAOB: [place], [place] [address]Acc: ~(330 (HP) Primary Insurance:MEDICARE A AND BPolicy Number: [id number] Date:7992-60-10Xne n Name:GABRIEL SOSAOB: [id number] [place] [address]Zof: (HP) [facility] 09/20/2024 Secondary Insurance:ANTHEMPo licy Number: [id number] michelle Date:9943-49-71Yhb n Name:[address] [address]JV: JERMAIN SOSAOB: [id number] [place] [address]Iyk: (HP) [facility] 09/18/2024 JERMAIN SOSAOB: [place] [address]Zvl: ~(330 (HP) Primary Insurance:MEDICARE A AND BPolicy Number: [id number] Date:3149-06-09Hge n Name:GABRIEL SOSAOB: [id number] [place] [address]Jwk: (HP) [facility] 09/18/2024 Secondary Insurance:ANTHEMPo licy Number: [id number] michelle Date:7354-17-20Jbd n Name:[address] [address]KK: JERMAIN SOSAOB: [id number] [place] [address]Mja: (HP) [facility] 09/13/2024 JERMAIN SOSAOB: [place] [address]Nwx: ~(330 (HP) Primary Insurance:MEDICARE A AND BPolicy Number: [id number] Date:8630-51-00Jbd n Name:GABRIEL SOSAOB: [id number] [place] [address]Gma: (HP) [facility] 09/13/2024 Secondary Insurance:ANTHEMPo licy Number: [id number] michelle Date:3706-95-28Adq n Name:[address] [address]FE: JERMAIN SOSAOB: [id number] [place] [address]Omw: (HP) [facility] 09/06/2024 JERMAIN SOSAOB: [place] [address]Myw: ~(330 (HP) Primary Insurance:MEDICARE A AND BPolicy Number: [id number] Date:8607-09-20Taf n Name:GABRIEL SOSAOB: [id number] [place], [place] [address]Vqb: (HP) [facility] 09/06/2024 Secondary Insurance:ANTHEMPo licy Number: [id number] michelle Date:5129-25-20Lif n Name:[address] [address]EE: JERMAIN CALDWELLMANDOB: [id number] [place] [address]Ips: (HP) [facility] 09/06/2024 JERMAIN CALDWELLMANDOB: [place], [place] [address]Yvk: ~(330 (HP) Primary Insurance:MEDICARE A AND BPolicy Number: [id number] Date:6086-19-93Cjr n Name:GABRIEL SOSAOB: [id number] [place] [address]Duh: (HP) [facility] 09/06/2024 Secondary Insurance:ANTHEMPo licy Number: [id number] michelle Date:2814-30-62Qrb n Name:[address] [address]KA: JERMAIN SOSAOB: [id number] [place] [address]Iaj: (HP) [facility] 07/26/2024 JERMAIN SOSAOB: [place] [address]Wqb: ~(330 (HP) Primary Insurance:MEDICARE A AND BPolicy Number: [id number] Date:3479-50-36Emp n Name:GABRIEL SOSAOB: [id number] [place] [address]Ufm: (HP) [facility] 07/26/2024 Secondary Insurance:ANTHEMPo licy Number: [id number] michelle Date:7304-63-73Btw n Name:[address] [address]HS: JERMAIN CALDWELLMANDOB: [id number] [place] [address]Oik: (HP) [facility] 07/26/2024 JERMAIN CALDWELLMANDOB: [place], [place] [address]Buw: ~(330 (HP) Primary Insurance:MEDICARE A AND BPolicy Number: [id number] Date:4538-87-28Umz n Name:GABRIEL SOSAOB: [id number] [place] [address]Ejv: (HP) [facility] 07/26/2024 Secondary Insurance:ANTHEMPo licy Number: [id number] michelle Date:9210-17-48Gji n Name:[address] [address]DN: JERMAIN SOSAOB: [id number] [place] [address]Vli: (HP) [facility] 07/19/2024 JERMAIN CALDWELLMANDOB: [place] [address]Jcb: ~(330 (HP) Primary Insurance:MEDICARE A AND BPolicy Number: [id number] Date:3747-80-82Tvr n Name:GABRIEL SOSAOB: [id number] [place] [address]Rhl: (HP) [facility] 07/19/2024 Secondary Insurance:ANTHEMPo licy Number: [id number] michelle Date:1391-25-61Ykp n Name:[address] [address]EU: JERMAIN CALDWELLMANDOB: [id number] [place] [address]Nrr: (HP) [facility] 06/14/2024 JERMAIN CALDWELLMANDOB: [place] [address]Exe: ~(330 (HP) Primary Insurance:MEDICARE A AND BPolicy Number: [id number] Date:9471-51-31Jhd n Name:GABRIEL SOSAOB: [id number] [place] [address]Wuh: (HP) [facility] 06/14/2024 Secondary Insurance:ANTHEMPo licy Number: [id number] michelle Date:9157-42-33Vps n Name:[address] [address]SP: JERMAIN CALDWELLMANDOB: 0308-18-20IRP4053 [place] [address]Gmb: (HP) [facility] 06/12/2024 JERMAIN CALDWELLMANDOB: [place] [address]Mnl: ~(330 (HP) Primary Insurance:MEDICARE A AND BPolicy Number: [id number] Date:2770-48-01Rtc n Name:GABRIEL SOSAOB: [id number] [place] [address]Jmp: (HP) [facility] 06/12/2024 Secondary Insurance:ANTHEMPo licy Number: [id number] michelle Date:2429-94-57Wmp n Name:[facility] [id number] [place] [address]RU: JERMAIN CALDWELLMANDOB: [id number] [place] [address]Tkz: (HP) [facility] 06/07/2024 JERMAIN CALDWELLMANDOB: [place] [address]Vrf: ~(330 (HP) Primary Insurance:MEDICARE A AND BPolicy Number: [id number] Date:0983-86-38Tnk n Name:GABRIEL SOSAOB: [id number] [place] [address]Wzb: (HP) [facility] 06/07/2024 Secondary Insurance:ANTHEMPo licy Number: [id number] michelle Date:8573-97-57Ime n Name:[address] [address]KI: JERMAIN SOSAOB: 8364-80-13QOD0233 [place] [address]Qwk: (HP) [facility] 06/07/2024 JERMAIN SOSAOB: [place], [place] [address]Kyh: ~(330 (HP) Primary Insurance:MEDICARE A AND BPolicy Number: [id number] Date:3574-05-39Ise n Name:GABRIEL SOSAOB: [id number] [place] [address]Rdd: (HP) [facility] 06/07/2024 Secondary Insurance:ANTHEMPo licy Number: [id number] michelle Date:0124-20-83Jky n Name:[address] [address]SU: JERMAIN SOASOB: [id number] [place] [address]Efq: (HP) [facility] 06/07/2024 JERMAIN SOSAOB: [place], [place] [address]Ise: ~(330 (HP) Primary Insurance:MEDICARE A AND BPolicy Number: [id number] Date:1692-57-64Ugp n Name:GABRIEL SOSAOB: [id number] [place] [address]Nxz: (HP) [facility] 06/07/2024 Secondary Insurance:ANTHEMPo licy Number: [id number] michelle Date:3470-75-94Lth n Name:[address] [address]VK: JERMAIN SOSAOB: [id number] [place], [place] [address]Ztm: (HP) [facility] 03/20/2024 JERMAIN SOSAOB: [place], [place] [address]Ecm: ~(330 (HP) Primary Insurance:MEDICARE A AND BPolicy Number: [id number] Date:9870-03-98Vwk n Name:GABRIEL SOSAOB: 1047-58-97DOC9166 [place] [address]Dpb: (HP) [facility] 03/20/2024 Secondary Insurance:ANTHEMPo licy Number: [id number] michelle Date:5337-46-81Vvx n Name:[address] [address]GH: JERMAIN SOSAOB: [id number] [place], [place] [address]Hdt: (HP) [facility] 03/15/2024 JERMAIN SOSAOB: [place], [place] [address]Fgm: ~(330 (HP) Primary Insurance:MEDICARE A AND BPolicy Number: [id number] Date:0351-77-68Nbm n Name:GABRIEL SOSAOB: [id number] [place] [address]Wby: (HP) [facility] 03/15/2024 Secondary Insurance:ANTHEMPo licy Number: [id number] michelle Date:7349-56-22Aur n Name:[address] [address]WN: JERMAIN SOSAOB: 6947-28-33SGW1784 [place], [place] [address]Ttp: (HP) [facility] 01/10/2024 JERMAIN SOSAOB: [place], [place] [address]Yye: ~(330 (HP) Primary Insurance:MEDICARE A AND BPolicy Number: [id number] Date:0539-87-86Qys n Name:GABRIEL SOSAOB: [id number] [place], [place] [address]Dau: (HP) [facility] 01/10/2024 Secondary Insurance:ANTHEMPo licy Number: [id number] michelle Date:3138-56-27Zgr n Name:[address] [address]RZ: JERMAIN SOSAOB: 9840-07-29SIR4708 [place], [place] [address]Eip: (HP) [facility] 01/10/2024 JERMAIN SOSAOB: [place], [place] [address]Exl: ~(330 (HP) Primary Insurance:MEDICARE A AND BPolicy Number: [id number] Date:0121-32-16Jny n Name:GABRIEL SOSAOB: [id number] [place], [place] [address]Kcl: (HP) [facility] 01/10/2024 Secondary Insurance:ANTHEMPo licy Number: [id number] michelle Date:4221-87-56Usp n Name:[address] [address]OJ: JERMAIN SOSAOB: 7696-77-72UNG6909 [place], [place] [address]Vez: (HP) [facility] 01/01/2024 JERMAIN SOSAOB: [place] [facility] [place] [place] [address]Wng: ~(330 (HP) Primary Insurance:MEDICARE A AND BPolicy Number: [id number] Date:9763-59-46Mai n Name:GABRIEL SOSAOB: 9352-47-83IQU4999 [place], [place] [address]Hcz: (HP) [facility] 01/01/2024 Secondary Insurance:ANTHEMPo licy Number: [id number] michelle Date:3502-21-52Yuk n Name:[facility] [id number] [place] [address]EC: JERMAIN SOSAOB: [id number] [place], [place] [address]Asm: (HP) [facility] 01/01/2024 JERMAIN SOSAOB: [place], [place] [address]Aww: ~(330 (HP) Primary Insurance:MEDICARE A AND BPolicy Number: [id number] Date:1950-09-06Rpo n Name:GABRIEL SOSAOB: [id number] [place], [place] [address]Kgh: (HP) [facility] 01/01/2024 Secondary Insurance:ANTHEMPo licy Number: [id number] michelle Date:4532-64-91Vyr n Name:[address] [address]YP: JERMAIN SOSAOB: [id number] [place], [place] [address]Zml: (HP) [facility] 01/01/2024 JERMAIN SOSAOB: [place], [place] [address]Cxx: ~(330 (HP) Primary Insurance:MEDICARE A AND BPolicy Number: [id number] Date:3067-35-13Mel n Name:GABRIEL SOSAOB: [id number] [place], [place] [address]Zjt: (HP) [facility] 01/01/2024 Secondary Insurance:ANTHEMPo licy Number: [id number] michelle Date:5973-05-98Ytd n Name:[address] [address]PL: JERMAIN SOSAOB: 6650-74-50SJU1654 [place], [place] [address]Cdy: (HP) [facility] 12/15/2023 JERMAIN SOSAOB: [place], [place] [address]Cwv: ~(330 (HP) Primary Insurance:MEDICARE A AND BPolicy Number: [id number] Date:7711-35-54Ilz n Name:GABRIEL SOSAOB: 0382-90-13FJD2773 [place], [place] [address]Llz: (HP) [facility] 12/15/2023 Secondary Insurance:ANTHEMPo licy Number: [id number] michelle Date:2284-86-96Mji n Name:[facility] [id number] [place] [address]LZ: JERMAIN SOSAOB: 0675-07-14ASG5629 [place] [address]Rxz: (HP) [facility] 12/08/2023 JERMAIN SOSAOB: [place], [place] [address]Smf: ~(347 (HP) Primary Insurance:MEDICARE A AND BPolicy Number: [id number] Date:2980-46-37Spv n Name:CARE JERMAIN SOSAOB: [id number] [place], [place] [address]Wsn: (HP) [facility] 12/08/2023 Secondary Insurance:ANTHEMPo licy Number: [id number] michelle Date:2878-73-00Ljg n Name:[facility] [id number] [place] [address]WI: JERMAIN SOSAOB: [id number] [place], [place] [address]Ptr: (HP) [facility]
--- OUTSIDE RECORDS SUMMARY | 2024-11-08 08:51 | XMS RPT_ITS ---
Author Name Auto Generated Organization OHIP Support Name Relationship Address Phone KATHY SANTIAGO Next of Kin Unknown Unavailable GREGORY, JERMAIN Next of Kin Unknown Unavailable WORTHY, JADE Next of Kin [address] [place], [place] Unavailable JACK, RICH Next of Kin Unknown Unavailable GREGORY, JERMAIN Next of Kin Unknown Unavailable WORTHY, JADE Next of Kin [address] [place], [place] Unavailable JACK, RICH Next of Kin Unknown Unavailable GREGORY, JERMAIN Next of Kin Unknown Unavailable WORTHY, JADE Next of Kin [address] [place], [place] Unavailable JACK, RICH Next of Kin Unknown Unavailable GREGORY, JERMAIN Next of Kin Unknown Unavailable WORTHY, JADE Next of Kin [address] [place], [place] Unavailable JACK, RICH Next of Kin Unknown Unavailable GREGORY, JERMAIN Next of Kin Unknown Unavailable WORTHY, JADE Next of Kin [address] [place], [place] Unavailable JACK, RICH Next of Kin Unknown Unavailable GREGORY, JERMAIN Next of Kin Unknown Unavailable WORTHY, JADE Next of Kin [address] [place] Unavailable JACK, RICH Next of Kin Unknown Unavailable GREGORY, JERMAIN Next of Kin Unknown Unavailable WORTHY, JADE Next of Kin [address] [place], [place] Unavailable JACK, RICH Next of Kin Unknown Unavailable GREGORY, JERMAIN Next of Kin Unknown Unavailable WORTHY, JADE Next of Kin [address] [place] Unavailable JACK, RICH Next of Kin Unknown Unavailable GREGORY, JERMAIN Next of Kin Unknown Unavailable WORTHY, JADE Next of Kin [address] [place] Unavailable JACK, RICH Next of Kin Unknown Unavailable GREGORY, JERMAIN Next of Kin Unknown Unavailable WORTHY, JADE Next of Kin [address] [place] Unavailable JACK, RICH Next of Kin Unknown Unavailable GREGORY, JERMAIN Next of Kin Unknown Unavailable WORTHY, JADE Next of Kin [address] [place] Unavailable JACK, RICH Next of Kin Unknown Unavailable GREGORY, JERMAIN Next of Kin Unknown Unavailable WORTHY, JADE Next of Kin [address] [place] Unavailable JACK, RICH Next of Kin Unknown Unavailable GREGORY, JERMAIN Next of Kin Unknown Unavailable WORTHY, JADE Next of Kin [address] [place] Unavailable JACK, RICH Next of Kin Unknown Unavailable GREGORY, JERMAIN Next of Kin Unknown Unavailable WORTHY, JADE Next of Kin [address] [place] Unavailable JACK, RICH Next of Kin Unknown Unavailable GREGORY, JERMAIN Next of Kin Unknown Unavailable WORTHY, JADE Next of Kin [address] [place] Unavailable JACK, RICH Next of Kin Unknown Unavailable GREGORY, JERMAIN Next of Kin Unknown Unavailable WORTHY, JADE Next of Kin [address] [place] Unavailable JACK, RICH Next of Kin Unknown Unavailable GREGORY, JERMAIN Next of Kin Unknown Unavailable WORTHY, JADE Next of Kin [address] [place], [place] Unavailable JACK, RICH Next of Kin Unknown Unavailable GREGORY, JERMAIN Next of Kin Unknown Unavailable WORTHY, JADE Next of Kin [address] [place], [place] Unavailable JACK, RICH Next of Kin Unknown Unavailable GREGORY, JERMAIN Next of Kin Unknown Unavailable WORTHY, JADE Next of Kin [address] [place], [place] Unavailable JACK, RICH Next of Kin Unknown Unavailable GREGORY, JERMAIN Next of Kin Unknown Unavailable WORTHY, JADE Next of Kin [address] [place], [place] + JACK, RICH Next of Kin Unknown Unavailable GREGORY, JERMAIN Next of Kin Unknown Unavailable WORTHY, JADE Next of Kin [address] [place], [place] + JACK, RICH Next of Kin [...] Kin Unknown Unavailable 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 09/06/2024 Admitting diagnosis Nonscarring hair loss, unspecified / L65.9(ICD-10) CLINT DIAZ 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 12/08/2023 Admitting diagnosis Other specified cardiac arrhythmias / I49.8(ICD-10) RACH BABIN [facility] 12/08/2023 Admitting diagnosis Paroxysmal atrial fibrillation / I48.0(ICD-10) RACH BABIN Active [facility] 12/08/2023 Admitting diagnosis Atrial premature depolarization / I49.1(ICD-10) RACH BABIN BONG [facility] PROCEDURES No Procedure Records Found RESULTS CHROMOGRANIN A Collected: 11/08/2024 8:58 AM Status: F Source: [facility] TYPE CODE TESTS RESULT OUT OF RANGE REFERENCE UNITS LAB 998 Chromogranin A 423 High <93 ng/mL Result Comment: Impaired bentley al or hepatic function or treatment with proton pump inhibitors may result in artifactual elevations of Chromogranin A. ADDITIONAL INFORMATION The testing method is a homogeneous time-resolved immunofluorescent assay manufactured by [employer] and performed on the SET [employer] Compact Plus. Values obtained with different assay [...] examination and other findings. Test Performed by: [facility] [address] [place] [address] Client Relationship Consultant: Lizzy Ring Ph.D.; CLIA# [id number] Performed By: #### YCHGRA ## ## [facility] (DEFAULT) [address] [address] LACTATE DEHYDROGENASE Collected: 2024 8:58 AM Status: F Source: [facility] TYPE CODE TESTS RESULT OUT OF RANGE REFERENCE UNITS LAB [id number] LD Total 139 100-190 U/L Performed By: #### LDO, CMPN #### [facility] (DEFAULT) [address] [place] [address] COMPREHENSIVE METABOLIC PANEL Collected : 11/08/2024 8:58 AM Status: F Source: [facility] TYPE CODE TESTS RESULT OUT OF RANGE REFERENCE UNITS LAB [id number] Sodium 135 135-145 mmol/L LAB [id number] Potassium 3.4 Low 3.5-5.0 mmol/L LAB [id number] Chloride 98 98-108 mmol/L LAB [id number] BUN 19 7-25 mg/dL LAB [id number] Creatinine 1.05 0.50-1.20 mg/dL LAB [id number] Glucose 100 Nonfastin -179 mg/dL; Fastin-99 mg/dL LAB [id number] Bilirubin Total 0.7 <1.5 mg/dL LAB [id number] Albumin 4.4 3.5-5.0 g/dL LAB [id number] Total Protein 7.5 6.4-8.3 g/dL LAB [id number] AST 19 10-39 U/L LAB [id number] ALP 136 High 32-126 U/L LAB [id number] Calcium 9.8 8.6-10.5 mg/dL LAB [id number] CO2 29 21-31 mmol/L LAB [id number] ALT 12 9-48 U/L LAB [id number] Bun/Crea Ratio 18 LAB [id number] Osmolality (Calculated) 285 278-305 mOsm/kg LAB [id number] Anion Gap 11 7-17 mmol/L LAB [id number] eGFR, CKD-EPI, Female 54 Low >=60 mL/min/1 .73m2 Result Comment: Reported eGF R is based on the CKD-EPI 2020 equation using creatinine, age, and sex. Performed By: #### LDO, CMPN #### [facility] (DEFAULT) [address] [place] [address] CBC AND ELECTRONIC DIFF Collected: 11/08/2024 8:58 AM Status: F Source: [facility] TYPE CODE TESTS RESULT OUT OF RANGE REFERENCE UNITS LAB [id number] WBC Count 3.95 Low 3.99-11.19 K/uL LAB [id number] RBC Count 3.44 Low 3.91-5.04 M/uL LAB [id number] Hemoglobin 10.8 Low 11.4-15.2 g/dL LAB [id number] Hematocrit 31.0 Low 34.9-44.3 % LAB [id number] Mean Cell Volume 90.1 79.6-97.7 fL LAB [id number] Mean Cell Hgb 31.4 25.9-33.9 pg LAB [id number] Mean Cell Hgb Conc 34.8 31.4-35.9 g/dL LAB [id number] RBC Distribution 14.7 10.8-14.9 % LAB [id number] Platelet Count 95 Low 150-393 K/uL Result Comment: Automated pl atelet count confirmed by manual slide review. LAB [id number] Mean Platelet Volume 9.1 8.5-12.2 fL LAB [id number] DIFF STATUS Electronic Differential LAB [id number] Segs + Bands Auto 67.6 % LAB [id number] Immature Grans % 0.0 % LAB [id number] Lymphocyte % Auto 18.2 % LAB [id number] Monocyte % Auto 11.9 % LAB [id number] Eosinophil % Auto 1.8 % LAB [id number] Basophil % Auto 0.5 % LAB [id number] Nucleated RBC 0.0 <=0.2 /100 WB C LAB [id number] Segs + Bands,Absolute Auto 2.67 1.64-7.28 K/uL LAB [id number] Immature Grans Absolute < <=0.08 K/uL LAB [id number] Abs Lymph Auto 0.72 Low 1.16-3.51 K/uL LAB [id number] Abs [place] Auto 0.47 0.22-0.87 K/uL LAB [id number] Abs Eos Auto 0.07 0.00-0.42 K/uL LAB [id number] Abs Baso Auto < 0.00-0.15 K/uL Performed By: #### [id number] ## ## [facility] (DEFAULT) [address] [place] [address] GASTRIN - NON-STIMULATED Collected: 8:58 AM Status: F Source: [facility] TYPE CODE TESTS RESULT OUT OF RANGE REFERENCE UNITS LAB 19783 Gastrin 1611 High pg/mL Result Comment: REFERENCE VALUE <100 Reference ranges valid for >= 8 hour fast. Test Performed by: [facility] [address] [place] [address] Client Relationship Consultant: Lizzy Ring Ph.D.; CLIA# [id number] Performed By: #### GSTR #### [facility] (DEFAULT) [address] [place] [address] NUC LARRY-177 DOTATATE THERAPY Observed: 12:22 PM Status: F Source: [facility] EXAM: NUC LARRY-177 DOTATATE MITRA VILLALTA, [...] dose syringe and microbore tubing by the nuclear supervising operator. The nuclear supervising operator then slowly administered this saline flush via [...] Collected: 09/18/2024 9:01 AM Status: F Source: [facility] TYPE CODE TESTS RESULT OUT OF RANGE REFERENCE UNITS LAB [id number] NT-Pro B-Type Natriuretic Peptide 164 <=540 pg/mL Performed By: #### YNTBNP ## ## [facility] (DEFAULT) [address] [place] [address] CBC AND ELECTRONIC DIFF Collected: 08/14 10:02 AM Status: F Source: [facility] TYPE CODE TESTS RESULT OUT OF RANGE REFERENCE UNITS LAB [id number] WBC Count 4.36 3.99-11.19 K/uL LAB [id number] RBC Count 3.84 Low 3.91-5.04 M/uL LAB [id number] Hemoglobin 11.4 11.4-15.2 g/dL LAB [id number] Hematocrit 33.7 Low 34.9-44.3 % LAB [id number] Mean Cell Volume 87.8 79.6-97.7 fL Result Comment: Results inco nsistent with previous results LAB [id number] Mean Cell Hgb 29.7 25.9-33.9 pg LAB [id number] Mean Cell Hgb Conc 33.8 31.4-35.9 g/dL LAB [id number] RBC Distribution 15.9 High 10.8-14.9 % LAB [id number] Platelet Count 154 150-393 K/uL Result Comment: Results inco nsistent with previous results. LAB [id number] Mean Platelet Volume 9.4 8.5-12.2 fL LAB [id number] DIFF STATUS Electronic Differential LAB [id number] Segs + Bands Auto 65.5 % LAB [id number] Immature Grans % 0.5 % LAB [id number] Lymphocyte % Auto 20.6 % LAB [id number] Monocyte % Auto 10.6 % LAB [id number] Eosinophil % Auto 2.1 % LAB [id number] Basophil % Auto 0.7 % LAB [id number] Nucleated RBC 0.0 <=0.2 /100 WB C LAB [id number] Segs + Bands,Absolute Auto 2.86 1.64-7.28 K/uL LAB [id number] Immature Grans Absolute < <=0.08 K/uL LAB [id number] Abs Lymph Auto 0.90 Low 1.16-3.51 K/uL LAB [id number] Abs [place] Auto 0.46 0.22-0.87 K/uL LAB [id number] Abs Eos Auto 0.09 0.00-0.42 K/uL LAB [id number] Abs Baso Auto < 0.00-0.15 K/uL Performed By: #### [id number] ## ## [facility] (DEFAULT) [address] [address] LACTATE DEHYDROGENASE Collected: 2024 10:02 AM Status: F Source: [facility] TYPE CODE TESTS RESULT OUT OF RANGE REFERENCE UNITS LAB [id number] LD Total 170 100-190 U/L Performed By: #### LDO, CMPN #### [facility] (DEFAULT) [address] [place] [address] COMPREHENSIVE METABOLIC PANEL Collected : 09/06/2024 10:02 AM Status: F Source: [facility] TYPE CODE TESTS RESULT OUT OF RANGE REFERENCE UNITS LAB [id number] Sodium 138 135-145 mmol/L LAB [id number] Potassium 3.4 Low 3.5-5.0 mmol/L LAB [id number] Chloride 102 98-108 mmol/L LAB [id number] BUN 17 7-25 mg/dL LAB [id number] Creatinine 0.86 0.50-1.20 mg/dL LAB [id number] Glucose 115 Nonfastin -179 mg/dL; Fastin-99 mg/dL LAB [id number] Bilirubin Total 0.6 <1.5 mg/dL LAB [id number] Albumin 4.2 3.5-5.0 g/dL LAB [id number] Total Protein 7.2 6.4-8.3 g/dL LAB [id number] AST 22 10-39 U/L LAB [id number] ALP 132 High 32-126 U/L LAB [id number] Calcium 9.6 8.6-10.5 mg/dL LAB [id number] CO2 26 21-31 mmol/L LAB [id number] ALT 12 9-48 U/L LAB [id number] Bun/Crea Ratio 20 LAB [id number] Osmolality (Calculated) 290 278-305 mOsm/kg LAB [id number] Anion Gap 13 7-17 mmol/L LAB [id number] eGFR, CKD-EPI, Female 68 >=60 mL/min/1 .73m2 Result Comment: Reported eGF R is based on the CKD-EPI 2020 equation using creatinine, age, and sex. Performed By: #### LDO, CMPN #### [facility] (DEFAULT) [address] [place] [address] GASTRIN - NON-STIMULATED Collected: 10:02 AM Status: F Source: [facility] TYPE CODE TESTS RESULT OUT OF RANGE REFERENCE UNITS LAB 72823 Gastrin 1534 High pg/mL Result Comment: REFERENCE VALUE <100 Reference ranges valid for >= 8 hour fast. Test Performed by: [facility] [place] [address] Client Relationship Consultant: Lizzy Ring Ph.D.; CLIA# [id number] Performed By: #### GSTR #### [facility] (DEFAULT) [address] [place] [address] CHROMOGRANIN A Collected: 10:02 AM Status: F Source: [facility] TYPE CODE TESTS RESULT OUT OF RANGE REFERENCE UNITS LAB 998 Chromogranin A 492 High <93 ng/mL Result Comment: Impaired bentley al or hepatic function or treatment with proton pump inhibitors may result in artifactual elevations of Chromogranin A. ADDITIONAL INFORMATION The testing method is a homogeneous time-resolved immunofluorescent assay manufactured by [employer] and performed on the SET [employer] Compact Plus. Values obtained with different assay [...] examination and other findings. Test Performed by: [facility] [place] [address] Client Relationship Consultant: Lizzy Ring Ph.D.; CLIA# [id number] Performed By: #### YCHGRA ## ## [facility] (DEFAULT) [address] [place] [address] NUC LARRY-177 DOTATATE THERAPY Observed: 2:01 PM Status: F Source: [facility] EXAM: NUC LARRY-177 DOTATATE TH AMBAR, [...] Observed: 06/19/19 2:27 PM Status: F Source: [facility] EXAM: NUC PET HEAD TO THIGH, [...] Observed: 05/15 6:01 PM Status: F Source: [facility] EXAM: CT CHEST WITHOUT CONTR AST [...] error, please notify the sender immediately at [phone] and permanently delete the original report and destroy any copies or printouts. MRI ABDOMEN WITH AND WITHOUT CONTRAST Observed: 06/07/2024 1:31 PM Status: F Source: [facility] EXAM: MRI ABDOMEN WITH AND W [...] neuroendocrine PET are again not within the [id number] of this abdominal only study. 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 MOGRANIN A Collected: 06/07/2024 8:19 AM Status: F Source: [facility] TYPE CODE TESTS RESULT OUT OF RANGE REFERENCE UNITS LAB 998 Chromogranin A 317 High <93 ng/mL Result Comment: Impaired bentley al or hepatic function or treatment with proton pump inhibitors may result in artifactual elevations of Chromogranin A. ADDITIONAL INFORMATION The testing method is a homogeneous time-resolved immunofluorescent assay manufactured by [employer] and performed on the SET [employer] Compact Plus. Values obtained with different assay [...] examination and other findings. Test Performed by: [facility] [address] [place] [address] Client Relationship Consultant: Lizzy Ring Ph.D.; CLIA# [id number] Performed By: #### YCHGRA ## ## [facility] (DEFAULT) [address] [place] [address] LACTATE DEHYDROGENASE Collected: 2024 8:19 AM Status: F Source: [facility] TYPE CODE TESTS RESULT OUT OF RANGE REFERENCE UNITS LAB [id number] LD Total 126 100-190 U/L Performed By: #### LDO, CMPN #### [facility] (DEFAULT) [address] [place] [address] COMPREHENSIVE METABOLIC PANEL Collected : 06/07/2024 8:19 AM Status: F Source: [facility] TYPE CODE TESTS RESULT OUT OF RANGE REFERENCE UNITS LAB [id number] Sodium 130 Low 135-145 mmol/L LAB [id number] Potassium 3.7 3.5-5.0 mmol/L LAB [id number] Chloride 91 Low 98-108 mmol/L LAB [id number] BUN 15 7-25 mg/dL LAB [id number] Creatinine 0.82 0.50-1.20 mg/dL LAB [id number] Glucose 147 Nonfastin -179 mg/dL; Fastin-99 mg/dL LAB [id number] Bilirubin Total 0.6 <1.5 mg/dL LAB [id number] Albumin 4.5 3.5-5.0 g/dL LAB [id number] Total Protein 7.7 6.4-8.3 g/dL LAB [id number] AST 20 10-39 U/L LAB [id number] ALP 121 32-126 U/L LAB [id number] Calcium 10.1 8.6-10.5 mg/dL LAB [id number] CO2 28 21-31 mmol/L LAB [id number] ALT 15 9-48 U/L LAB [id number] Bun/Crea Ratio 18 LAB [id number] Osmolality (Calculated) 277 Low 278-305 mOsm/kg LAB [id number] Anion Gap 15 7-17 mmol/L LAB [id number] eGFR, CKD-EPI, Female 72 >=60 mL/min/1 .73m2 Result Comment: Reported eGF R is based on the CKD-EPI 2020 equation using creatinine, age, and sex. Performed By: #### LDO, CMPN #### [facility] (DEFAULT) [address] [place], [place] [address] GASTRIN - NON-STIMULATED Collected: 8:19 AM Status: F Source: [facility] TYPE CODE TESTS RESULT OUT OF RANGE REFERENCE UNITS LAB [address] Gastrin 1315 High pg/mL Result Comment: REFERENCE VALUE <100 Reference ranges valid for >= 8 hour fast. Test Performed by: [facility] [address] [place] [address] Client Relationship Consultant: Lizzy Ring Ph.D.; CLIA# [id number] Performed By: #### GSTR #### [facility] (DEFAULT) [address] [place] [address] CBC AND ELECTRONIC DIFF Collected: 06/07/2024 8:19 AM Status: F Source: [facility] TYPE CODE TESTS RESULT OUT OF RANGE REFERENCE UNITS LAB [id number] WBC Count 8.21 3.99-11.19 K/uL LAB [id number] RBC Count 4.25 3.91-5.04 M/uL LAB [id number] Hemoglobin 11.8 11.4-15.2 g/dL LAB [id number] Hematocrit 35.3 34.9-44.3 % LAB [id number] Mean Cell Volume 83.1 79.6-97.7 fL LAB [id number] Mean Cell Hgb 27.8 25.9-33.9 pg LAB [id number] Mean Cell Hgb Conc 33.4 31.4-35.9 g/dL LAB [id number] RBC Distribution 15.0 High 10.8-14.9 % LAB [id number] Platelet Count 325 150-393 K/uL LAB [id number] Mean Platelet Volume 9.1 8.5-12.2 fL LAB [id number] DIFF STATUS Electronic Differential LAB [id number] Segs + Bands Auto 86.3 % LAB [id number] Immature Grans % 0.6 % LAB [id number] Lymphocyte % Auto 11.4 % LAB [id number] Monocyte % Auto 1.6 % LAB [id number] Eosinophil % Auto 0.0 % LAB [id number] Basophil % Auto 0.1 % LAB [id number] Nucleated RBC 0.0 <=0.2 /100 WB C LAB [id number] Segs + Bands,Absolute Auto 7.08 1.64-7.28 K/uL LAB [id number] Immature Grans Absolute 0.05 <=0.08 K/uL LAB [id number] Abs Lymph Auto 0.94 Low 1.16-3.51 K/uL LAB [id number] Abs [place] Auto 0.13 Low 0.22-0.87 K/uL LAB [id number] Abs Eos Auto < 0.00-0.42 K/uL LAB [id number] Abs Baso Auto < 0.00-0.15 K/uL Performed By: #### [id number] ## ## [facility] (DEFAULT) [address] [place] [address] CT CHEST WITHOUT CONTRAST Observed: 12/15 6:41 PM Status: F Source: [facility] EXAM: CT CHEST WITHOUT CONTR AST, [...] Observed: 01/01/2024 4:29 PM Status: F Source: [facility] EXAM: MRI ABDOMEN WITH AND W [...] Collected: 12/14 10:18 AM Status: F Source: [facility] TYPE CODE TESTS RESULT OUT OF RANGE REFERENCE UNITS LAB [id number] WBC Count 7.94 3.99-11.19 K/uL LAB [id number] RBC Count 4.47 3.91-5.04 M/uL LAB [id number] Hemoglobin 11.5 11.4-15.2 g/dL LAB [id number] Hematocrit 36.8 34.9-44.3 % LAB [id number] Mean Cell Volume 82.3 79.6-97.7 fL LAB [id number] Mean Cell Hgb 25.7 Low 25.9-33.9 pg LAB [id number] Mean Cell Hgb Conc 31.3 Low 31.4-35.9 g/dL LAB [id number] RBC Distribution 16.9 High 10.8-14.9 % LAB [id number] Platelet Count 292 150-393 K/uL LAB [id number] Mean Platelet Volume 10.4 8.5-12.2 fL LAB [id number] DIFF STATUS Electronic Differential LAB [id number] Segs + Bands Auto 65.3 % LAB [id number] Immature Grans % 0.3 % LAB [id number] Lymphocyte % Auto 21.9 % LAB [id number] Monocyte % Auto 8.6 % LAB [id number] Eosinophil % Auto 2.6 % LAB [id number] Basophil % Auto 1.3 % LAB [id number] Nucleated RBC 0.0 <=0.2 /100 WB C LAB [id number] Segs + Bands,Absolute Auto 5.19 1.64-7.28 K/uL LAB [id number] Immature Grans Absolute < <=0.08 K/uL LAB [id number] Abs Lymph Auto 1.74 1.16-3.51 K/uL LAB [id number] Abs [place] Auto 0.68 0.22-0.87 K/uL LAB [id number] Abs Eos Auto 0.21 0.00-0.42 K/uL LAB [id number] Abs Baso Auto 0.10 0.00-0.15 K/uL Performed By: #### [id number] ## ## [facility] (DEFAULT) [address] [address] LACTATE DEHYDROGENASE Collected: 2023 10:18 AM Status: F Source: [facility] TYPE CODE TESTS RESULT OUT OF RANGE REFERENCE UNITS LAB [id number] LD Total 124 100-190 U/L Performed By: #### CMPN, LDO #### [facility] (DEFAULT) [address] [place] [address] COMPREHENSIVE METABOLIC PANEL Collected : 01/01/2024 10:18 AM Status: F Source: [facility] TYPE CODE TESTS RESULT OUT OF RANGE REFERENCE UNITS LAB [id number] Sodium 138 135-145 mmol/L LAB [id number] Potassium 3.8 3.5-5.0 mmol/L LAB [id number] Chloride 102 98-108 mmol/L LAB [id number] BUN 28 High 7-25 mg/dL LAB [id number] Creatinine 1.00 0.50-1.20 mg/dL LAB [id number] Glucose 102 High 70-99 mg/dL LAB [id number] Bilirubin Total 0.6 <1.5 mg/dL LAB [id number] Albumin 4.3 3.5-5.0 g/dL LAB [id number] Total Protein 7.6 6.4-8.3 g/dL LAB [id number] AST 38 10-39 U/L LAB [id number] ALP 326 High 32-126 U/L LAB [id number] Calcium 9.7 8.6-10.5 mg/dL LAB [id number] CO2 28 21-31 mmol/L LAB [id number] ALT 25 9-48 U/L LAB [id number] Bun/Crea Ratio 28 LAB [id number] Osmolality (Calculated) 294 278-305 mOsm/kg LAB [id number] Anion Gap 12 7-17 mmol/L LAB [id number] eGFR, CKD-EPI, Female 57 Low >=60 mL/min/1 .73m2 Result Comment: Reported eGF R is based on the CKD-EPI 2020 equation using creatinine, age, and sex. Performed By: #### CMPN, LDO #### [facility] (DEFAULT) [address] [place] [address] GASTRIN - NON-STIMULATED Collected: 10:18 AM Status: F Source: [facility] TYPE CODE TESTS RESULT OUT OF RANGE REFERENCE UNITS LAB 33255 Gastrin 671 High pg/mL Result Comment: REFERENCE VALUE <100 Reference ranges valid for >= 8 hour fast. Test Performed by: [facility] [address] [place] [address] Client Relationship Consultant: Lizzy Ring Ph.D.; CLIA# [id number] Performed By: #### GSTR #### [facility] (DEFAULT) [address] [place] [address] CHROMOGRANIN A Collected: 10:18 AM Status: F Source: [facility] TYPE CODE TESTS RESULT OUT OF RANGE REFERENCE UNITS LAB 998 Chromogranin A 364 High <93 ng/mL Result Comment: Impaired bentley al or hepatic function or treatment with proton pump inhibitors may result in artifactual elevations of Chromogranin A. ADDITIONAL INFORMATION The testing method is a homogeneous time-resolved immunofluorescent assay manufactured by [employer] and performed on the SET [employer] Plus. Values obtained with different assay [...] examination and other findings. Test Performed by: [facility] [address] [place] [address] Client Relationship Consultant: Lizzy Ring Ph.D.; CLIA# [id number] Performed By: #### YCHGRA ## ## [facility] (DEFAULT) [address] [place] [address] INVASIVE CARDIOVASCULAR PROCEDURE Observed: 12/20/2023 9:23 AM Status: F Source: [facility] Severe hypertension with SBP above 200 on arrival to the cardiac cath lab radiology technologist and remained above 190 despite sedation. 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 Recommendations: - Adequate blood pressure control. - Aggressive risk factors modification. Table formatting from the original result was not included. Images from the original result were not included. Jermain Jenkins Invasive Cardiology Cath Procedure Ordering Physician: RACH BABIN Order #: [id number] Study Date: 12/15/2023 Patient Information Name MRN Description Jermain Jenkins [id number] 83 y.o. female Location Name Address [address] [address] Physicians Panel Physicians Referring Physician Case Authorizing [...] SBP above 200 on arrival to the cardiac cath lab radiology technologist and remained above 190 despite sedation. 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 Recommendations: - Adequate blood pressure control. - Aggressive risk factors modification. Medical History Diagnosis Date Comment Source Arrhythmia atrial fibrillation Essential hypertension, benign History of cancer Hyperlipidemia Rheumatic fever Medical History - Pertinent Negatives Pertinent Negative Date Comment Source Asthma 11/06/2023 Diabetes mellitus 11/06/2023 ME (myocardial infarction) 11/06/2023 Pacemaker 11/06/2023 Seizure 11/06/2023 Procedure The risks and alternatives of the procedure and sedation were explained. Informed consent was obtained. The patient was brought to the cardiac cath lab radiology technologist and placed on the table. The planned [...] CLOSURE PERCLOSE PROSTYLE SUTURE MEDIATE REPAIR - [id number] Implanted Fluoro Dose Fluoro Dose: 7.5 Gy-cm^2 Complications Complications documented before study signed (12/20/2023 9:23 AM) No complications were associated with this study. Documented by Ludy Mcdonald MD - 12/15/2023 9:01 AM Cardiac Clerk To Justice Attending Physician Statement and Signature I have [...] AM Medical History Prompt Yes/No Comments Date ME No 11/06/2023 Hypertension Yes Stroke Unanswered Vascular Disease Unanswered COPD Unanswered Diabetes No 11/06/2023 Surgical History Prompt Yes/No Procedure Laterality Comments Date CABG Unanswered Coronary Artery Bypass Graft Tobacco Use Never smoked or used smokeless tobacco. SNOMED CT?: Never smoked tobacco ([id number]). Last Resulted Components Date/Time Component Value Lab Status 12/15/23 07 CREATSERUM 0.66 Final result 12/15/23719 HGB 11.5 Final result CBC,PLATELETS Collected: 12/15/2023 7:20 AM Status: F Source: [facility] TYPE CODE TESTS RESULT OUT OF RANGE REFERENCE UNITS LAB [id number] WBC Count 6.75 3.99-11.19 K/uL LAB [id number] RBC Count 4.46 3.91-5.04 M/uL LAB [id number] Hemoglobin 11.5 11.4-15.2 g/dL LAB [id number] Hematocrit 36.1 34.9-44.3 % LAB [id number] Mean Cell Volume 80.9 79.6-97.7 fL LAB [id number] Mean Cell Hgb 25.8 Low 25.9-33.9 pg LAB [id number] Mean Cell Hgb Conc 31.9 31.4-35.9 g/dL LAB [id number] RBC Distribution 16.8 High 10.8-14.9 % LAB [id number] Platelet Count 281 150-393 K/uL LAB [id number] Mean Platelet Volume 10.3 8.5-12.2 fL Performed By: #### HEMOGC ## ## [facility] (DEFAULT) [address] [place] [address] PROTIME-INR Collected: 7:20 AM Status: F Source: [facility] TYPE CODE TESTS RESULT OUT OF RANGE REFERENCE UNITS LAB [id number] PT 14.3 High 11.9-14.2 sec LAB [id number] INR 1.1 0.9-1.1 Performed By: #### PTI #### [facility] (DEFAULT) [address] [address] CHEM 6 (LYTES, BUN CREA) Collected: 12/15/2023 7:20 A M Status: F Source: [facility] TYPE CODE TESTS RESULT OUT OF RANGE REFERENCE UNITS LAB [id number] BUN 19 7-25 mg/dL LAB [id number] Sodium 139 135-145 mmol/L LAB [id number] Potassium 3.5 3.5-5.0 mmol/L LAB [id number] Chloride 106 98-108 mmol/L LAB [id number] CO2 24 21-31 mmol/L LAB [id number] Creatinine 0.66 0.50-1.20 mg/dL LAB [id number] Bun/Crea Ratio 29 LAB [id number] Anion Gap 13 7-17 mmol/L LAB [id number] eGFR, CKD-EPI, Female 88 >=60 mL/min/1. 73m2 Result Comment: Reported eGF R is based on the CKD-EPI 2020 equation using creatinine, age, and sex. Performed By: #### CHM6 #### [facility] (DEFAULT) [address] [place] [id number] LIPID PANEL W CALCULATED LDL Collected: 12/08/2023 11 :49 AM Status: F Source: [facility] TYPE CODE TESTS RESULT OUT OF RANGE REFERENCE UNITS LAB [id number] Cholesterol 210 High <200 mg/dL Result Comment: [<200 mg/dL: Desirable] [200-239 mg/dL: Borderline High] [>239 mg/dL: High] LAB [id number] Triglycerides 114 <150 mg/dL Result Comment: [<150 mg/dL: Desirable] [150-199 mg/dL: Borderline] [200-499 mg/dL: High] [>500 mg/dL: Very High] LAB [id number] HDL Cholesterol 62 >=40 mg/dL Result Comment: [<40 mg/dL: Low (High Risk)] [>59 mg/dL: High (Low Risk)] LAB [id number] Calculated LDL Cholesterol 125 High 0-99 mg/dL Result Comment: [<100 mg/dL: Optimal] [100-129 mg/dL: Near Optimal] [130-159 mg/dL: Borderline High] [160-189 mg/dL: High] [>189 mg/dL: Very High] LAB [id number] Total Cholesterol/HDL Ratio 3.4 <4.5 LAB [id number] Non HDL Cholesterol 148 High <130 mg/dL Performed By: #### HDLT, HFP #### [facility] (DEFAULT) [address] [place] [address] HEPATIC FUNCTION PANEL Collected: 12/07 11:49 AM Status: F Source: [facility] TYPE CODE TESTS RESULT OUT OF RANGE REFERENCE UNITS LAB [id number] Albumin 4.2 3.5-5.0 g/dL LAB [id number] Bilirubin Direct 0.2 <0.3 mg/dL LAB [id number] Bilirubin Total 0.7 <1.5 mg/dL LAB [id number] ALP 207 High 32-126 U/L LAB [id number] ALT 26 9-48 U/L LAB [id number] AST 38 10-39 U/L LAB [id number] Total Protein 7.3 6.4-8.3 g/dL Performed By: #### HDLT, HFP #### [facility] (DEFAULT) [address] [place] [address] ALLERGIES No Allergies Records Found ENCOUNTERS ADMIT/DISCHARGE ACCOUNT NUMBER ADMITTING ENCOUNTER CLASS LOCATION SOURCE 11/08/2024 [id number] [facility]ITAL[facility] ing[facility] 11/08/2024 [id number] [facility]/2024 [id number] [facility] HOSPITALBuild ing:KRIMRI [facility] 09/20/2024 [id number] [facility] HOSPITALBuild ing:CT1[facility] 09/20/2024 [id number] [facility]/18/2024 [id number] [facility] HOSPITALBuild ing:CAREAS [facility] 09/13/2024 [id number] [facility] HOSPITALBuild ing:CT1[facility] 09/06/2024 [id number] [facility]PITALBuild ing:[facility] 09/06/2024 [id number] [facility] HOSPITALBuild ing:K1[facility] 07/26/2024 [id number] [facility] HOSPITALBuild ing:CT1[facility] 07/26/2024 [id number] [facility] HOSPITALBuild ing:BSGJCH [facility] 07/19/2024 [id number] [facility] HOSPITALBuild ing:CT1NME [facility] 06/14/2024 [id number] [facility] HOSPITALBuild ing:DHRPET [facility] 06/12/2024 [id number] [facility] HOSPITALBuild ing:KJOC [facility] 06/07/2024 [id number] [facility] HOSPITALBuild ing:JORI [facility] 06/07/2024 [id number] [facility] HOSPITALBuild ing:JOCCTD [facility] 06/07/2024 [id number] [facility]/2024 [id number] [facility] HOSPITALBuild ing:KJOC [facility] 03/15/2024 [id number] [facility] HOSPITALBuild ing:[facility] 01/10/2024 [id number] [facility] HOSPITALBuild ing:KJND [facility] 01/10/2024 [id number] [facility]OSPITALBuild ing:[facility] 01/01/2024 [id number] [facility] HOSPITALBuild ing:KRRI [facility] 01/01/2024 [id number] [facility] HOSPITALBuild ing:KRICTD [facility] 01/01/2024 [id number] [facility]/15/[facility]23/12/15/19 [id number] LUDY MCDONALD [facility] HOSPITALBuild ing:CILESTRoo m: EINVAS [facility] 12/08/2023 [id number] [facility] HOSPITALBuild ing:[facility] PAYERS ENCOUNTER GUARANTOR PAYER SUBSCRIBER SOURCE 11/08/2024 JERMAIN SOSAOB: [id number] [place] [address]Fkh: ~(330 (HP) Primary Insurance:MEDICARE A AND BPolicy Number: [id number] Date:1936-17-42Gky n Name:GABRIEL SOSAOB: [id number] [place], [place] [address]Dsg: (HP) [facility] 11/08/2024 Secondary Insurance:ANTHEMPo licy Number: [id number] michelle Date:3873-44-96Kkx n Name:[address] [address]SX: JERMAIN SOSAOB: [id number] [place], [place] [address]Zpp: (HP) [facility] 11/08/2024 JERMAIN SOSAOB: [place], [place] [address]Mro: ~(330 (HP) Primary Insurance:MEDICARE A AND BPolicy Number: [id number] ve Date:7983-78-69Ehs n Name:GABRIEL SOSAOB: [id number] [place], [place] [address]Ttb: (HP) [facility] 11/08/2024 Secondary Insurance:ANTHEMPo licy Number: [id number] michelle Date:9334-52-58Spz n Name:[facility] [id number] [place] [address]BP: JERMAIN SOSAOB: [id number] [place] [address]Wmb: (HP) [facility] 10/23/2024 JERMAIN ANIBAL SHEILAOB: [place], [place] [address]Jrx: ~(330 (HP) Primary Insurance:MEDICARE A AND BPolicy Number: [id number] Date:8845-67-38Aaq n Name:GABRIEL SOSAOB: [id number] [place] [address]Pjm: (HP) [facility] 10/23/2024 Secondary Insurance:ANTHEMPo licy Number: [id number] michelle Date:5517-97-00Evc n Name:[address] [address]UG: JERMAIN SOSAOB: 8636-07-34WEC2905 [place], [place] [address]Rzs: (HP) [facility] 09/20/2024 JERMAIN SOSAOB: [place], [place] [address]Qcn: ~(330 (HP) Primary Insurance:MEDICARE A AND BPolicy Number: [id number] ve Date:3916-59-64Dri n Name:GABRIEL SOSAOB: [id number] [place] [address]Tip: (HP) [facility] 09/20/2024 Secondary Insurance:ANTHEMPo licy Number: [id number] michelle Date:7899-84-30Esh n Name:[address] [address]CP: JERMAIN SOSAOB: [id number] [place] [address]Nbp: (HP) [facility] 09/20/2024 JERMAIN SOSAOB: [place], [place] [address]Igc: ~(330 (HP) Primary Insurance:MEDICARE A AND BPolicy Number: [id number] Date:7828-24-44Pdm n Name:GABRIEL SOSAOB: [id number] [place] [address]Zjs: (HP) [facility] 09/20/2024 Secondary Insurance:ANTHEMPo licy Number: [id number] michelle Date:8579-15-98Ztb n Name:[address] [address]JY: JERMAIN SOSAOB: [id number] [place] [address]Ttp: (HP) [facility] 09/18/2024 JERMAIN SOSAOB: [place] [address]Ylm: ~(330 (HP) Primary Insurance:MEDICARE A AND BPolicy Number: [id number] Date:8387-72-69Dpf n Name:GABRIEL SOSAOB: [id number] [place] [address]Adk: (HP) [facility] 09/18/2024 Secondary Insurance:ANTHEMPo licy Number: [id number] michelle Date:1871-39-66Kbk n Name:[address] [address]FC: JERMAIN SOSAOB: [id number] [place] [address]Oqq: (HP) [facility] 09/13/2024 JERMAIN SOSAOB: [place] [address]Pok: ~(330 (HP) Primary Insurance:MEDICARE A AND BPolicy Number: [id number] Date:2439-29-55Yis n Name:GABRIEL SOSAOB: [id number] [place] [address]Thn: (HP) [facility] 09/13/2024 Secondary Insurance:ANTHEMPo licy Number: [id number] michelle Date:4534-87-43Fto n Name:[address] [address]NX: JERMAIN SOSAOB: [id number] [place] [address]Jsd: (HP) [facility] 09/06/2024 JERMAIN SOSAOB: [place] [address]Vzy: ~(330 (HP) Primary Insurance:MEDICARE A AND BPolicy Number: [id number] ve Date:7272-28-66Spz n Name:GABRIEL SOSAOB: [id number] [place], [place] [address]Iby: (HP) [facility] 09/06/2024 Secondary Insurance:ANTHEMPo licy Number: [id number] michelle Date:7092-27-45Prq n Name:[address] [address]JH: JERMAIN CALDWELLMANDOB: [id number] [place] [address]Ubb: (HP) [facility] 09/06/2024 JERMAIN CALDWELLMANDOB: [place], [place] [address]Vhx: ~(330 (HP) Primary Insurance:MEDICARE A AND BPolicy Number: [id number] Date:1494-84-91Igs n Name:GABRIEL SOSAOB: [id number] [place] [address]Vtc: (HP) [facility] 09/06/2024 Secondary Insurance:ANTHEMPo licy Number: [id number] michelle Date:5853-13-54Cux n Name:[address] [address]IC: JERMAIN SOSAOB: [id number] [place] [address]Kkd: (HP) [facility] 07/26/2024 JERMAIN SOSAOB: [place] [address]Cok: ~(330 (HP) Primary Insurance:MEDICARE A AND BPolicy Number: [id number] Date:5148-53-99Ixf n Name:GABRIEL SOSAOB: 0760-07-41FWQ0725 [place] [address]Lrj: (HP) [facility] 07/26/2024 Secondary Insurance:ANTHEMPo licy Number: [id number] michelle Date:8962-85-97Vgk n Name:[address] [address]KJ: JERMAIN CALDWELLMANDOB: 1838-07-04OIP5003 [place] [address]Bic: (HP) [facility] 07/26/2024 JERMAIN CALDWELLMANDOB: [place], [place] [address]Mou: ~(330 (HP) Primary Insurance:MEDICARE A AND BPolicy Number: [id number] Date:5198-02-57Qvi n Name:GABRIEL SOSAOB: [id number] [place] [address]Rph: (HP) [facility] 07/26/2024 Secondary Insurance:ANTHEMPo licy Number: [id number] michelle Date:5007-58-42Bsj n Name:[address] [address]YY: JERMAIN SOSAOB: [id number] [place] [address]Wuw: (HP) [facility] 07/19/2024 JERMAIN CALDWELLMANDOB: [place] [address]Nsp: ~(330 (HP) Primary Insurance:MEDICARE A AND BPolicy Number: [id number] Date:6294-08-31Fov n Name:GABRIEL SOSAOB: [id number] [place] [address]Ttt: (HP) [facility] 07/19/2024 Secondary Insurance:ANTHEMPo licy Number: [id number] michelle Date:3660-43-88Vht n Name:[address] [address]YC: JERMAIN CALDWELLMANDOB: [id number] [place] [address]Etr: (HP) [facility] 06/14/2024 JERMAIN CALDWELLMANDOB: [place] [address]Tht: ~(330 (HP) Primary Insurance:MEDICARE A AND BPolicy Number: [id number] Date:6153-69-96Ljr n Name:GABRIEL SOSAOB: [id number] [place] [address]Ypo: (HP) [facility] 06/14/2024 Secondary Insurance:ANTHEMPo licy Number: [id number] michelle Date:8470-33-00Hnw n Name:[address] [address]TZ: JERMAIN CALDWELLMANDOB: [id number] [place] [address]Arj: (HP) [facility] 06/12/2024 JERMAIN CALDWELLMANDOB: [place] [address]Mmf: ~(330 (HP) Primary Insurance:MEDICARE A AND BPolicy Number: [id number] Date:7940-03-14Mfo n Name:GABRIEL SOSAOB: [id number] [place] [address]Zle: (HP) [facility] 06/12/2024 Secondary Insurance:ANTHEMPo licy Number: [id number] michelle Date:3770-43-39Pnc n Name:[facility] [id number] [place] [address]ZU: JERMAIN CALDWELLMANDOB: [id number] [place] [address]Usl: (HP) [facility] 06/07/2024 JERMAIN CALDWELLMANDOB: [place] [address]Ome: ~(330 (HP) Primary Insurance:MEDICARE A AND BPolicy Number: [id number] Date:6469-86-20Zzq n Name:GABRIEL SOSAOB: [id number] [place] [address]Eod: (HP) [facility] 06/07/2024 Secondary Insurance:ANTHEMPo licy Number: [id number] michelle Date:2687-40-46Mht n Name:[address] [address]CD: JERMAIN SOSAOB: [id number] [place] [address]Gaq: (HP) [facility] 06/07/2024 JERMAIN SOSAOB: [place], [place] [address]Tmm: ~(330 (HP) Primary Insurance:MEDICARE A AND BPolicy Number: [id number] Date:7286-75-86Bya n Name:GABRIEL SOSAOB: [id number] [place] [address]Gcz: (HP) [facility] 06/07/2024 Secondary Insurance:ANTHEMPo licy Number: [id number] michelle Date:2430-79-13Mad n Name:[address] [address]BV: JERMAIN SOSAOB: [id number] [place] [address]Ifq: (HP) [facility] 06/07/2024 JERMAIN SOSAOB: [place], [place] [address]Jwz: ~(330 (HP) Primary Insurance:MEDICARE A AND BPolicy Number: [id number] Date:8394-98-30Nep n Name:GABRIEL SOSAOB: [id number] [place] [address]Yrk: (HP) [facility] 06/07/2024 Secondary Insurance:ANTHEMPo licy Number: [id number] michelle Date:6801-29-77Jjt n Name:[address] [address]GA: JERMAIN SOSAOB: [id number] [place], [place] [address]Vyk: (HP) [facility] 03/20/2024 JERMAIN SOSAOB: [place], [place] [address]Rgw: ~(330 (HP) Primary Insurance:MEDICARE A AND BPolicy Number: [id number] Date:4781-45-65Tjv n Name:GABRIEL SOSAOB: [id number] [place] [address]Nby: (HP) [facility] 03/20/2024 Secondary Insurance:ANTHEMPo licy Number: [id number] michelle Date:9282-85-94Oif n Name:[address] [address]EM: JERMAIN SOSAOB: [id number] [place], [place] [address]Ibh: (HP) [facility] 03/15/2024 JERMAIN SOSAOB: [place], [place] [address]Dbl: ~(330 (HP) Primary Insurance:MEDICARE A AND BPolicy Number: [id number] Date:2527-17-80Bwl n Name:GABRIEL SOSAOB: [id number] [place] [address]Iaa: (HP) [facility] 03/15/2024 Secondary Insurance:ANTHEMPo licy Number: [id number] michelle Date:4459-54-96Znp n Name:[address] [address]FF: JERMAIN SOSAOB: [id number] [place], [place] [address]Gjb: (HP) [facility] 01/10/2024 JERMAIN SOSAOB: [place], [place] [address]Csq: ~(330 (HP) Primary Insurance:MEDICARE A AND BPolicy Number: [id number] Date:1136-84-11Rxk n Name:GABRIEL SOSAOB: [id number] [place], [place] [address]Agi: (HP) [facility] 01/10/2024 Secondary Insurance:ANTHEMPo licy Number: [id number] michelle Date:3073-46-11Csl n Name:[address] [address]PO: JERMAIN SOSAOB: [id number] [place], [place] [address]Vcb: (HP) [facility] 01/10/2024 JERMAIN SOSAOB: [place], [place] [address]Wgp: ~(330 (HP) Primary Insurance:MEDICARE A AND BPolicy Number: [id number] Date:0394-70-83Bxy n Name:GABRIEL SOSAOB: [id number] [place], [place] [address]Tgp: (HP) [facility] 01/10/2024 Secondary Insurance:ANTHEMPo licy Number: [id number] michelle Date:4809-29-34Zzu n Name:[address] [address]DK: JERMAIN SOSAOB: 3915-48-80EGW3596 [place], [place] [address]Jos: (HP) [facility] 01/01/2024 JERMAIN SOSAOB: [facility] [facility] [address]Hft: ~(330 (HP) Primary Insurance:MEDICARE A AND BPolicy Number: [id number] Date:3638-85-59Kkt n Name:GABRIEL SOSAOB: [id number] [place], [place] [address]Xzr: (HP) [facility] 01/01/2024 Secondary Insurance:ANTHEMPo licy Number: [id number] michelle Date:7674-72-46Hlu n Name:[facility] [id number] [place] [address]IZ: JERMAIN SOSAOB: [id number] [place], [place] [address]Mgi: (HP) [facility] 01/01/2024 JERMAIN SOSAOB: [place], [place] [address]Jpk: ~(330 (HP) Primary Insurance:MEDICARE A AND BPolicy Number: [id number] Date:2737-76-63Kqm n Name:GABRIEL SOSAOB: 9310-10-64ADW0509 [place], [place] [address]Ymp: (HP) [facility] 01/01/2024 Secondary Insurance:ANTHEMPo licy Number: [id number] michelle Date:7835-90-00Dek n Name:[address] [address]NW: JERMAIN SOSAOB: [id number] [place], [place] [address]Idm: (HP) [facility] 01/01/2024 JERMAIN SOSAOB: [place], [place] [address]Bst: ~(330 (HP) Primary Insurance:MEDICARE A AND BPolicy Number: [id number] Date:3124-86-38Een n Name:GABRIEL SOSAOB: [id number] [place], [place] [address]Gpw: (HP) [facility] 01/01/2024 Secondary Insurance:ANTHEMPo licy Number: [id number] michelle Date:6177-22-49Avn n Name:[address] [address]TV: JERMAIN SOSAOB: 9222-05-01FVR9729 [place], [place] [address]Xbo: (HP) [facility] 12/15/2023 JERMAIN SOSAOB: [place], [place] [address]Ryk: ~(330 (HP) Primary Insurance:MEDICARE A AND BPolicy Number: [id number] Date:5779-89-16Wpr n Name:GABRIEL SOSAOB: [id number] [place], [place] [address]Znj: (HP) [facility] 12/15/2023 Secondary Insurance:ANTHEMPo licy Number: [id number] michelle Date:4067-95-73Mke n Name:[facility] [id number] [place] [address]HW: JERMAIN SOSAOB: [id number] [place] [address]Pdc: (HP) [facility] 12/08/2023 JERMAIN SOSAOB: [place], [place] [address]Smm: ~(054 (HP) Primary Insurance:MEDICARE A AND BPolicy Number: [id number] Date:3471-25-92Qde n Name:CARE JERMAIN SOSAOB: [id number] [place], [place] [address]Kqk: (HP) [facility] 12/08/2023 Secondary Insurance:ANTHEMPo licy Number: [id number] michelle Date:1008-91-49Gty n Name:[facility] [id number] [place] [id number]: JERMAIN SOSAOB: [id number] [place], [place] [address]Tys: (HP) [facility]
[2024-11-12 15:44] LABS: Hematocrit 29.0 % (37-47); Hemoglobin 10.2 g/dL (12.0-15.0); Immature Granulocytes Count 0.000 X10^3/uL (0.0-0.0); Mean Corp Hgb Conc 35.2 g/dL (32-36); Mean Corpuscular Volume 90.3 fL (81-99); Mean Platelet Vol. 10.6 fl (6.2-12.0); NRBC Flagged by Analyzer 0 % (0-5); POSITIVE COUNT YES; Platelet Count 91 K/mm3 (150-450); RBC Distribution Width CV 14.6 % (11.6-14.6); RBC Distribution Width SD 47.8 fl (35.1-43.9); Red Blood Count 3.21 M/mm3 (4.2-5.4); White Blood Count 3.1 K/mm3 (4.4-11.0)
[2024-11-12 16:24] LABS: AST(SGOT) 23 U/L (<=31); Alanine Aminotransfer ALT/SGPT 12 U/L (<=34); Albumin, Serum 4.2 g/dL (3.4-4.8); Alkaline Phosphatase 137 U/L (35-104); Anion Gap 12 (5-15); BUN 15 mg/dL (4-19); BUN/Creat Ratio 17.9 RATIO (10-20); Calcium,Total 9.4 mg/dL (7.6-11.0); Carbon Dioxide 25.0 mmol/L (21.0-32.0); Chloride 99 mmol/L (98-108); Globulin 2.7 g/dL (2.2-4.2); Glucose 123 mg/dL (70-99); Potassium 3.7 mmol/L (3.3-5.1)
[2024-11-12 18:59] LABS: Differential Indicated SCAN CRITERIA MET
[2024-11-12 19:02] LABS: Differential Comment SCANNED
== END | disposition home or self-care (01) ==
LOC: MTLAB 12:49
PROVIDERS: PCP Family Medicine
DX: D3A.8 Other benign neuroendocrine tumors (principal)
CPT/HCPCS: 36415; 80053; 85025

== ENCOUNTER 2024-11-19 12:15 | Outpatient (RCR) | payer MEDICARE, BC, SELFPAY ==
[2024-11-19 13:22] LABS: Hematocrit 29.1 % (37-47); Hemoglobin 10.1 g/dL (12.0-15.0); Immature Granulocytes Count 0.010 X10^3/uL (0.0-0.0); Mean Corp Hgb Conc 34.7 g/dL (32-36); Mean Corpuscular Volume 91.2 fL (81-99); Mean Platelet Vol. 10.2 fl (6.2-12.0); NRBC Flagged by Analyzer 0 % (0-5); Platelet Count 112 K/mm3 (150-450); RBC Distribution Width CV 15.1 % (11.6-14.6); RBC Distribution Width SD 49.3 fl (35.1-43.9); Red Blood Count 3.19 M/mm3 (4.2-5.4); White Blood Count 3.9 K/mm3 (4.4-11.0)
== END 2024-11-19 18:00 | disposition home or self-care (01) ==
LOC: LAB 12:15
PROVIDERS: PCP Family Medicine
DX: D3A.8 Other benign neuroendocrine tumors (principal)
CPT/HCPCS: 36415; 85025

== ENCOUNTER 2025-02-06 15:50 | Emergency (ER) | payer MEDICARE, BC, SELFPAY ==
[2025-02-06 15:52] VITALS: BP 177/76; PULSE 81; RESP 18; TEMP 36.4; O2SAT 100; BMI 27.1
--- NOTE | 2025-02-06 16:14 | RAD_ITS ---
PROCEDURE: CHEST PA AND LATERAL 02/06/2025 REASON FOR EXAM: CHEST PAIN TECHNIQUE: Procedure Code: RADCXR Modality: DX Procedure: CHEST PA AND LATERAL COMPARISON: 06/19/2018 chest x-ray FINDINGS: Hardware: None Heart: Heart size is moderately enlarged. Mediastinum: The mediastinal contour is unremarkable. Lungs: The lungs are clear. Bones: Postprocedural changes of kyphoplasty noted in the midthoracic spine vertebral body, likely T8. RAD/Chest PA and Lateral IMPRESSION: No acute cardiopulmonary abnormality. Reading Location: [facility]
--- NOTE | 2025-02-06 16:14 | EKG12_ITS ---
Test Reason : HEART BURN Blood Pressure : */* mmHG Vent. Rate : 85 BPM Atrial Rate : 85 BPM P-R Int : 168 ms QRS Dur : 114 ms QT Int : 406 ms P-R-T Axes : 35 -4 73 degrees QTcB Int : 483 ms Sinus rhythm with Premature supraventricular complexes Incomplete left bundle branch block Nonspecific ST and T wave abnormality QTcB >= 480 msec Abnormal ECG Confirmed by Tony Blackburn ([id number]), assistant production editor SYLVIA GELLER ([id number]) on 02/07/2025 8:26:15 AM Referred By: JEFF Confirmed By: Tony Blackburn
--- NOTE | 2025-02-06 16:17 | EX.ED.DYSGE1 ---
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 David) presenting with heartburn. Patient states that she has had severe heartburn that is been constant since Monday evening (2 days ago). It is not exacerbated by eating, positions or movement. She states she has had some associated chest discomfort with it. She tried multiple vvuz-rui-vflunla medications including Prilosec, Tums and Gas-X with no relief. She states she has chronic diarrhea for years with no change in this. No report of any black or blood in her stool. No vomiting reported. Notes that she has been feeling short of breath since yesterday morning. She notes that is worse when she is moving around. She denies any belching. She states she still sleeping through the night but is not sleeping as well. Denies any palpitations. Has never had any like this before. States she has never had an EGD. Has had prior cholecystectomy. No other complaints or concerns at this time. [facility] Medical History Torn Achilles tendon Compression fracture of T8 vertebra T6 vertebral fracture Achilles rupture, left Fall Left arm pain Lymph nodes enlarged Bone metastases Lung metastases Regional lymph node metastasis present Parathyroid adenoma Primary malignant neuroendocrine neoplasm of ascending colon Neuroendocrine tumor History of stress test Wears dentures Depression Easy bruising Heartburn History of diverticulitis Non-smoker History of rheumatic fever Colon wall thickening Diarrhea Abdominal pain, RLQ Arthritis Fatigue Postoperative atrial fibrillation (02/2018) Parathyroid disease Degenerative arthritis of left foot Asthma Strain of foot, left Hyperlipidemia SVT (supraventricular tachycardia) Essential hypertension Home Medications ?Medication ?Instructions ?Recorded ?Last Taken ?Type sertraline 100 mg tablet 150 mg PO DAILY mood 01/31/15 09/25/20 07:00 History cholecalciferol (vitamin D3) 25 2,000 unit PO DAILY 07/28/15 09/24/20 History mcg (1,000 unit) tablet pyridoxine (vitamin B6) 50 mg 50 mg PO DAILY supplement 05/15/20 09/24/20 History tablet mecobalamin (vitamin B12) 1,000 1,000 mcg PO DAILY 09/04/20 Unknown History mcg chewable tablet (B12 Active) glucosamine-chondroitin 250 mg-200 2 tab PO DAILY 04/01/21 Unknown History mg tablet (Osteo Bi-Flex) magnesium 250 mg tablet 250 mg PO DAILY 04/01/21 Unknown History potassium chloride 20 mEq 20 meq PO DAILY 05/21/21 Unknown History tablet,extended release(part/cryst) risedronate 35 mg tablet 35 mg PO QWEEK 05/21/21 Unknown History calcium citrate 1,000 mg tablet 1,000 mg PO .COMPLEX 08/18/23 Unknown History hydrochlorothiazide 25 mg tablet 25 mg PO QAM 01/24/24 Unknown History gabapentin 300 mg capsule 300 mg PO BID #90 caps 06/11/24 Unknown Rx oxycodone-acetaminophen 5 mg-325 1 tab PO Q6H PRN PRN pain 5 days 06/11/24 Unknown Rx mg tablet #20 TABLETS flecainide 100 mg tablet 100 mg PO BID heart beat #180 tabs 09/02/24 Unknown Rx apixaban 5 mg tablet (Eliquis) 5 mg PO BID #180 tabs 10/03/24 Unknown Rx lisinopril 40 mg tablet 40 mg PO DAILY #90 tabs 11/04/24 Unknown Rx amlodipine 5 mg tablet 5 mg PO DAILY #90 tabs 11/21/24 Unknown Rx pantoprazole 40 mg tablet,delayed 40 mg PO DAILY #30 tabs 02/06/25 Unknown Rx release (Protonix) Allergy/AdvReac Type Severity Reaction Status Date / Time Iodinated Contrast Media Allergy Severe Anaphylaxis Verified 02/06/25 15:51 (Iodinated Contrast Media - IV Dye) atorvastatin AdvReac Severe STOPPED at Verified 02/06/25 15:51 [facility] for eleveated LFT Penicillins (PCN) AdvReac Intermediate Hives Verified 02/06/25 15:51 Family History Father CAD (coronary artery disease) Heart disease Hypertension Mother Hypertension Brother Hypertension Sister Hypertension Daughter Thyroid cancer Surgical History History of breast lump removal History of surgery on left wrist Hx of arthroscopic knee surgery History of hysterectomy History of appendectomy History of left heart catheterization (06/25/18) History of colonoscopy (02/2018) History of parathyroidectomy (~2013) History of cataract surgery Hx of cholecystectomy Hx of colonoscopy Social History Smoking Status: Never smoker second hand exposure: No alcohol intake: never substance use type: does not use caffeine: Yes (1) what type of physical activity do you participate in: none frequency: does not exercise elizabeth/yazdanism: Presbyterian seatbelt use: always do you feel safe at home: Yes ROS ROS ED Constitutional Constitutional ED: Denies chills or fever(s) Cardiovascular Cardiovascular: Reports chest pain; Denies palpitations Respiratory/Chest Respiratory/Chest: Reports cough; Denies dyspnea Gastrointestinal Gastrointestinal: Reports abdominal pain, diarrhea and nausea; Denies melena or vomiting Genitourinary Genitourinary ED: Denies dysuria or hematuria Musculoskeletal Musculoskeletal: Denies arthralgias, back pain or myalgias Integumentary Denies rash Neurologic Neurologic: Denies weakness Hematologic/Lymphatic Hematologic/Lymphatic: Denies easy bleeding or easy bruising EXAM Physical Exam Const Vital Signs: 02/06/25 15:52 02/06/25 16:37 02/06/25 16:37 Temperature 97.6 F L Temperature Source Oral Pulse Rate 81 Respiratory Rate 18 Respiratory Effort Normal Blood Pressure 177/76 H Blood Pressure Mean 109 Pulse Ox 100 Oxygen Delivery Method Room Air Room Air 02/06/25 17:30 02/06/25 18:00 02/06/25 18:30 Temperature Temperature Source Pulse Rate 77 78 79 Respiratory Rate 18 14 18 Respiratory Effort Blood Pressure 164/64 H 166/55 H 158/42 H Blood Pressure Mean 88 85 76 Pulse Ox 96 93 91 Oxygen Delivery Method 02/06/25 19:00 Temperature Temperature Source Pulse Rate 70 Respiratory Rate 16 Respiratory Effort Blood Pressure 152/80 H Blood Pressure Mean 99 Pulse Ox 92 Oxygen Delivery Method Positive well nourished and well developed General Appearance ED: well developed and NAD HEENT Reports TM's clear and moist mucous membranes Tympanic Membrane ED: Yes TM's clear Eyes PERRL Neck supple and no JVD Chest Wall inspection of chest normal and palpation of chest normal Resp normal respiratory effort and clear to auscultation bilaterally Cardio regular rate, regular rhythm and no murmurs GI normal to inspection, nondistended, normoactive bowel sounds, non-tender and non-distended Palpation: soft; Negative for tender or guarding Neuro oriented x3 Sensorium / Orientation: alert Motor Exam: Negative for general weakness Psych mental status grossly normal Skin no rashes or lesions noted and no wounds MDM MDM MDM Narrative Medical decision making narrative: Cardiac catheterization results from 12/08/2023 reviewed?proximal LAD lesion 25% stenosed with minimal luminal irregularities left circumflex and right coronary artery. Patient is evaluated for heartburn for the past 2 to 3 days. Concerned this could be referred cardiac symptoms and also wanted to feel better so she came in for further evaluation. Does not have any significant cardiac issue does have a history of cancer. Is anticoagulated on Eliquis so low suspicion for pulmonary emboli. She is not hypoxic. Cardiac and GI workup is obtained. Patient is a chronic anemia with a hemoglobin 10.1 which is stable. She is mildly thrombocytopenic with a platelets of 93,000 which is also chronic and stable. CMP shows hypokalemia the potassium of 3.1 magnesium that on but this is normal. She has a chronic mild elevation of alkaline phosphatase 127 which is stable. No transaminitis present. Lower suspicion for any type of biliary pathology causing her symptoms. Lipase is normal suspicion for pancreatitis. High sensitive troponin is normal x 2 at 14 and 14. Patient is given GI cocktail and IV Protonix with significant improvement of her symptoms. She states she is feeling much better. Patient be discharged home. Counseled on need for outpatient follow-up with GI. We given a referral for Dr. Zepeda. Also encouraged follow-up with her pro shop attendant for further instructions. In addition we will start her on Protonix. Patient given return precautions. Patient and daughter agreeable plan of care. Did discuss with patient and daughter that she has some nonspecific changes to her EKG and needs further outpatient follow-up with this but I do not think she needs inpatient cardiac workup given her heart score of 4, noncardiac sounding symptoms and largely normal cardiac catheterization 14 months ago. Lab Data Attestation: I reviewed the patient's lab results. Labs: Laboratory Results - last 24 hr 02/06/25 02/06/25 16:46 18:39 WBC 4.7 RBC 3.07 L Hgb 10.1 L Hct 28.1 L MCV 91.5 MCH 32.9 H MCHC 35.9 RDW Std Deviation 45.5 H RDW Coeff of Mehran 13.8 Plt Count 93 L MPV 9.4 Immature Gran % (Auto) 0.400 Neut % (Auto) 80.2 H Lymph % (Auto) 5.8 L [place] % (Auto) 11.3 H Eos % (Auto) 1.9 Baso % (Auto) 0.4 Absolute Neuts (auto) 3.8 Absolute Lymphs (auto) 0.27 L Nucleated RBC % 0 Sodium 135 Potassium 3.1 L Chloride 95 L Carbon Dioxide 25.9 Anion Gap 14 BUN 12 Creatinine 0.94 Estim Creat Clear Calc 37.60 L Est GFR (MDRD) Non-Af 61 BUN/Creatinine Ratio 13.2 Glucose 163 H Calcium 9.8 Magnesium 1.6 Total Bilirubin 0.72 Direct Bilirubin 0.31 H AST 22 ALT 11 Alkaline Phosphatase 127 H Troponin T High Sens 14 Troponin T Hi Sens 2 Hr 14 Total Protein 7.2 Albumin 4.4 Globulin 2.9 Lipase 19 Radiography Chest X-Ray - ED: 2 View, Read by ED Physician, Read by Radiologist and No Acute Disease Diagnostic Testing: Clinical Impression(s) from Imaging Studies Chest X-Ray 02/06/25 16:14 IMPRESSION: No acute cardiopulmonary abnormality. Reading Location: [facility] Rhythm Strip Rhythm Strip: Sinus Rhythm Rate: 85 Ectopy: None EKG Initial EKG: Attestation: I personally reviewed and interpreted this EKG as follows: Comments: Normal sinus rhythm at a rate of 85 bpm Normal axis Incomplete left bundle branch block Nonspecific T wave changes Compared EKG on 06/06/2024 patient now has some nonspecific T wave changes and some slight QRS widening in V2 Discharge Plan Triage Chief Complaint: Chest Other ED Provider: Alea Man Dx/Rx/DC Orders Clinical Impression: Gastritis, Hypokalemia Instructions: ED Chest Pain, Noncardiac, ED Gastritis (Adult), ED Hypokalemia Prescriptions: New pantoprazole [Protonix] 40 mg tablet,delayed release (DR/EC) 40 mg PO DAILY Qty: 30 0RF No Action pyridoxine (vitamin B6) 50 mg tablet 50 mg PO DAILY magnesium 250 mg tablet 250 mg PO DAILY glucosamine-chondroitin [Osteo Bi-Flex] 250-200 mg tablet 2 tab PO DAILY potassium chloride 20 mEq tablet,ER particles/crystals 20 meq PO DAILY Patient Comments: TAKE 1 TABLET DAILY risedronate 35 mg tablet 35 mg PO QWEEK Patient Comments: TAKE 1 TABLET hydrochlorothiazide 25 mg tablet 25 mg PO QAM sertraline 100 MG tablet 150 mg PO DAILY Patient Comments: depression cholecalciferol (vitamin D3) 1,000 UNIT tablet 2,000 unit PO DAILY Patient Comments: supplement mecobalamin (vitamin B12) [B12 Active] 1,000 mcg Tablet,Chewable 1,000 mcg PO DAILY gabapentin 300 mg capsule 300 mg PO BID Qty: 90 0RF Rx Instructions: 1 twice a day for 3 days then 1 3 times daily oxycodone-acetaminophen 5-325 mg tablet 1 tab PO Q6H PRN PRN (Reason: pain) 5 Days Qty: 20 0RF calcium citrate 1,000 mg tablet 1,000 mg PO .COMPLEX Rx Instructions: 1,000 mg orally 1 in the am, and 1/2 tab in the pm; flecainide 100 mg tablet 100 mg PO BID Qty: 180 3RF Eliquis 5 mg tablet 5 mg PO BID Qty: 180 4RF lisinopril 40 mg tablet 40 mg PO DAILY Qty: 90 3RF amlodipine 5 mg tablet 5 mg PO DAILY Qty: 90 3RF Primary Care Provider: Jose Manrique Referrals: Jose Manrique MD [Primary Care Provider, Family Practice] Friend,DO Cornelio [Med Staff - Active Staff, Gastroenterology] Activity Restrictions/Additional Instructions: Please follow-up outpatient with GI for your symptoms. Started on antacid. In addition you may take midp-fwf-jbediug medication such as Tums or Maalox for further symptom control. Continue adhere to a low acid diet. Your potassium was low today. You are given IV and oral potassium. I would recommend doubling your potassium at home for the next 5 days as well. Print Language: Mauritanian Disposition Disposition: Home, Self Care
--- OUTSIDE RECORDS SUMMARY | 2025-02-06 16:46 | XMS RPT_ITS | CCD ---
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 Blanca Cruz Primary Care Provider Dr. Blanca Cruz Referring Provider [phone] Lizette RAE, KYRA-C Dorothy Attending Provider Dr. Manuela Jacob Attending Provider Dr. Matt Nunez Attending Provider Karen GARCIA, JOSE Hernandez Attending Provider Dr. Chava Rodriguez Attending Provider Dr. Blanca Cruz Primary Care Provider Dr. Blanca Cruz Referring Provider [phone] Lizette RAE NP-Cristela De La Cruz Attending Provider Dr. Breanne Baxter Attending Provider Dr. Blanca Cruz Primary Care Provider Dr. Blanca Cruz Referring Provider [phone] Lizette RAE, KYRA-Cristela De La Cruz Attending Provider Dr. Matt Nunez Attending Provider Blanca Cruz MD Primary Care Provider [facility], [place] S Unavailable Michael VENTURA, Chava S Unavailable Sara Garcia MD Unavailable Rodrigo López MD Unavailable [phone] Erwin David MD Unavailable Dr. Blanca Cruz Primary Care Provider Dr. Blanca Cruz Referring Provider Lizette PERSONAL CARE AIDE, PERSONAL CARE AIDE-C Dorothy Attending Provider Dr. Matt Nunez Attending Provider Dr. Blanca Cruz Primary Care Provider Lizette PERSONAL CARE AIDE, PERSONAL CARE AIDE-C Dorothy Attending Provider Dr. Blanca Cruz Referring Provider Dr. Blanca Cruz Primary Care Provider Dr. Blanca Cruz Referring Provider Lizette PERSONAL CARE AIDE, PERSONAL CARE AIDE-C Dorothy Attending Provider MD Eric Morales Attending Provider [facility] PERSONAL CARE AIDE, PERSONAL CARE AIDE-C Lamin Little Attending Provider Blanca Cruz MD Primary Care Provider [facility], [place] S Unavailable Michael VENTURA, [place] S Unavailable Sara Garcia MD Unavailable Rodrigo López MD Unavailable Erwin David MD Unavailable Feliciano Ibarra MD Unavailable [phone] Blanca Cruz Primary Care Provider Dr. Blanca Cruz Referring Provider Dr. Chava Rodriguez Attending Provider Dr. Matt Nunez Attending Provider Unavailable Primary Care Provider SARA Lomeli Attending Unavailable SARA GARCIA Referring Unavailable BLANCA CRUZ Primary Care Unavailable Dr. Blanca Cruz Primary Care Provider Dr. Blanca Cruz Referring Provider Dr. Chava Rodriguez Attending Provider Dr. Matt Nunez Attending Provider Unavailable Primary Care Provider Unavailalbania Ibarra MD, Feliciano Unavailable ERIC RINCON Referring Unavailable MCKENZIE, ERIC Referring Unavailable MCKENZIE, ERIC Referring Unavailable MCKENZIE, ERIC Attending Unavailable EDGAR MELTON Referring Unavailable BRIGEMAN, ERIC Attending Unavailable EDGRA MELTON Referring Unavailable Isckarus [facility], Matt Salazar Unavailable Blanca Cruz MD Primary Care Provider Michael VENTURA, Chava Salazar Unavailable Feliciano Ibarra MD Unavailable Dr. Blanca Cruz MD Primary Care Provider Dr. Blanca Cruz MD Attending Provider Dr. Blanca Cruz MD Referring Provider Dr. Harmony Morgan MD Other Provider Michael VENTURA, Dr. Larsen Attending Provider Dr. Sara Garcia MD Attending Provider Dr. Sara Garcia MD Referring Provider Dario Wellington MD Primary Care Provider Chon VENTURA, Dr. Zhang Attending Provider Dr. Vicente Givens MD Emergency Provider CLINT DIAZ Attending Provider [phone] CLINT DIAZ Referring Provider Maribel VENTURA, Rodrigo M Unavailable Erwin David MD Unavailable Fred VENTURA, Feliciano Unavailable SUKRITHAN, ERWIN K Attending Unavailable JOLLIFF, BLANCA S Primary Care Unavailable JOLLIFF, BLANCA S Referring Unavailable JOLLIFF, BLANCA S Primary Care Unavailable CLINT DIAZ B Attending Unavailable EMILY CLINT B Referring Unavailable JOLLIFF, BLANCA S Primary Care Unavailable CLINT DIAZ Attending Unavailable CLINT DIAZ B Referring Unavailable SUKRITHAN, ERWIN K Attending Unavailable SUKRITHAN, ERWIN K Referring Unavailable JOLLIFF, BLANCA S Primary Care Unavailable SUKRITHAN, ERWIN K Referring Unavailable JOLLIFF, BLANCA S Primary Care Unavailable CLINT DIAZ B Attending Unavailable SUKRITHAN, ERWIN K Referring Unavailable SUKRITHAN, ERWIN K Attending Unavailable JOLLIFF, BLANCA S Primary Care Unavailable SUKRITHAN, ERWIN K Referring Unavailable SUKRITHAN, ERWIN K Attending Unavailable JOLLIFF, BLANCA S Primary Care Unavailable SUKRITHAN, ERWIN K Attending Unavailable JOLLIFF, BLANCA S Primary Care Unavailable JOLLIFF, BLANCA S Referring Unavailable SUKRITHAN, ERWIN K Attending Unavailable SUKRITHAN, ERWIN K Referring Unavailable JOLLIFF, BLANCA S Primary Care Unavailable Tiffany Babin Attending Unavailable JOLLIFF, BLANCA S Primary Care Unavailable JOLLIFF, BLANCA S Referring Unavailable SUKRITHAN, ERWIN K Attending Unavailable JOLLIFF, BLANCA S Referring Unavailable JOLLIFF, BLANCA S Primary Care Unavailable SUKRITHAN, ERWIN K Attending Unavailable SUKRITHAN, ERWIN K Referring Unavailable JOLLIFF, BLANCA S Primary Care Unavailable SUKRITHAN, ERWIN K Attending Unavailable SUKRITHAN, ERWIN K Referring Unavailable JOLLIFF, BLANCA S Primary Care Unavailable SUKRITHAN, ERWIN K Attending Unavailable SUKRITHAN, ERWIN K Referring Unavailable JOLLIFF, BLANCA S Primary Care Unavailable SUKRITHAN, ERWIN K Referring Unavailable EMILY, CLINT B Attending Unavailable JOLLIFF, BLANCA S Primary Care Unavailable SUKRITHAN, ERWIN K Attending Unavailable JOLLIFF, BLANCA S Referring Unavailable JOLLIFF, BLANCA S Primary Care Unavailable SUKRITHAN, ERWIN K Attending Unavailable SUKRITHAN, ERWIN K Referring Unavailable JOLLIFF, BLANCA S Primary Care Unavailable SUKRITHAN, ERWIN K Attending Unavailable JOLLIFF, BLANCA S Primary Care Unavailable JOLLIFF, BLANCA S Referring Unavailable MarEneida turneri Attending Unavailable JOLLIFF, BLANCA S Primary Care Unavailable SELF, SELF Referring Unavailable SUKRITHAN, ERWIN K Attending Unavailable SUKRITHAN, ERWIN K Referring Unavailable JOLLIFF, BLANCA S Primary Care Unavailable JOLLIFF, BLANCA S Primary Care Unavailable EMILY, CLINT B Attending Unavailable SELF, SELF Referring Unavailable JOLLIFF, BLANCA S Primary Care Unavailable OHLDORIS Attending Unavailable OHLDORIS Referring Unavailable JOLLIFF, BLANCA S Primary Care Unavailable OHDORIS Terrazas Attending Unavailable OHLDORIS Referring Unavailable SUKRITHAN, ERWIN K Attending Unavailable SUKRITHAN, ERWIN K Referring Unavailable JOLLIFF, BLANCA S Primary Care Unavailable JOLLIFF, BLANCA S Primary Care Unavailable ESME PEREZ Attending Unavailable JOLLIFF, BLANCA S Referring Unavailable SUKRITHAN, ERWIN K Referring Unavailable JOLLIFF, BLANCA S Primary Care Unavailable CLINT DIAZ B Attending Unavailable SUKRITHAN, ERWIN K Attending Unavailable JOLLIFF, BLANCA S Primary Care Unavailable CLINT DIAZ B Referring Unavailable Jolliff, Blanca S Attending Unavailable Jolliff, Blanca S Referring Unavailable Jolliff, Blanca S Primary Care Unavailable Jolliff, Blanca S Primary Care Unavailable Judah Rodriguezl Attending Unavailable Jolliff, Blanca S Referring Unavailable Jolliff, Blanca S Primary Care Unavailable Matt Nunez Attending Unavailable Jolliff, Blanca S Referring Unavailable GRIFFIN, MARYLU Referring Unavailable Manrique, Jose Primary Care Unavailable GRIFFIN, MARYLU Attending Unavailable Jolliff, Blanca S Primary Care Unavailable Sara Garcia Attending Unavailable Sara Garcia Referring Unavailable GRIFFIN, MARYLU Referring Unavailable Manrique, Jose Primary Care Unavailable GRIFFIN MARYLU Attending Unavailable Dario Wellington Primary Care Unavailable Basali, Ayman Attending Unavailable Basali, Ayman Referring Unavailable Jolliff, Blanca S Primary Care Unavailable SUKRITHAN, ERWIN Attending Unavailable SUKRITHAN, ERWIN Referring Unavailable Jolliff, Blanca S Primary Care Unavailable SUKRITHAN, ERWIN Attending Unavailable SUKRITHAN, ERWIN Referring Unavailable GRIFFIN, MARYLU Referring Unavailable Amish, Chalon Primary Care Unavailable GRIFFIN, MARYLU Attending Unavailable Amish, Chalon Primary Care Unavailable Givens, Vicente Attending Unavailable Jolliff, Blanca S Primary Care Unavailable Jolliff, Blanca S Attending Unavailable Jolliff, Blanca S Referring Unavailable Basali, Ayman Consulting Unavailable GRIFFIN, MARYLU Referring Unavailable GRIFFIN, MARYLU Attending Unavailable Amish, Chalon Primary Care Unavailable Allergies Allergy Classification Reported Allergen(s) Allergy Type Date of Onset Reaction(s) Facility (20 sources) Diatrizoate Drug Allergy 9 Anaphylaxis [facility] (20 sources) Penicillin G; Translations: [PENICILLIN G] Drug Allergy 1 Unknown [facility] (12 sources) Penicillins; Translations: [Penicillins] Propensity to adverse reactions 2 Hives [facility] Comment on above: AND TONGUE SWELLS (12 sources) Iodinated Contrast Media; Translations: [Iodinated Contrast Media] Allergy to substance 2 Anaphylaxis [facility] Comment on above: TONGUE SWELLS (9 sources) Diatrizoate; Translations: [DIATRIZOATE MEGLUMINE] Drug Allergy 9 Anaphylaxis [facility] (20 sources) Octreotide Drug Allergy 4 [facility] (1 source) atorvastatin Drug Allergy 5 STOPPED at [facility] for eleveated LFT [facility] (1 source) atorvastatin Drug Allergy 5 [facility] Repository Medications Current Medications Medication Drug Class(es) Dates Sig (Normalized) Sig (Original) acetaminophen 325 mg / oxyCODONE hydrochloride 5 mg oral tablet (20 sources) Opioid Agonist Start: 06-11-2024 take 1 tablet by mouth every six hours as needed for pain Oxycodone-Acetami nophen 5-325 mg tablet Active 1 {tbl} PO EVERY 6 HOURS NEEDED as needed for pain 20 June 11, 2024 Start: 06-19-2021 End: 04-07-2022 Oxycodone-Acetaminophen 1 TA BLET tablet Discontinued 1 {tbl} PO Q4H as needed for Pain 18 June 19, 2021 April 07, 2022 10:49am Start: 06-19-2021 End: 04-07-2022 take 1 tablet by mouth every four hours Oxycodone-Acetaminophen Discontinued 1 TABLET PO Q4H 30 04June 19, 2021 April 07, 2022 10:49am Start: 06-16-2021 End: 04-07-2022 Oxycodone-Acetaminophen (Per cocet) 5-325 mg tablet Discontinued 1 {tbl} PO EVERY 6 HOURS as needed for pain 12 June 16, 2021 April 07, 2022 10:49am Start: 06-07-2021 End: 03-31-2023 take 1 tablet by mouth every six hours as needed oxyCODONE-acetaminophen (Percocet) 7.5-3 25 MG tablet Indications: Neuroendocrine tumor Take 1 tablet by mouth every 6 hours as needed for up to 14 days. 30 tablet 06/07/2021 03/31/2023 Discontinued Start: 05-31-2021 End: 06-01-2021 take 1 tablet by mouth every four hours as needed oxyCODONE-acetaminophen (PERCOCET) 5-325 MG per tablet 1 tablet amLODIPine 5 mg oral tablet (20 sources) Dihydropyridine Calcium Channel Jorge Start: 05-15-2020 End: 09-14-2023 take 1 tablet by mouth once daily in the morning amLODIPine 5 MG tablet Take 1 tablet by mouth daily every morning. 08/20/2020 Active Comment on above: Take 1 tablet by mouth every afternoon. apixaban 5 mg oral tablet (20 sources) Factor Xa Inhibitor Start: 08-12-2023 End: 08-15-2023 5 mg, Oral, EVERY 12 HOURS, First dose (after last modification) on 08/12/23 at 0900, Until Discontinued, Due to the rapid onset of action of apixaban, no overlap is needed with other anticoagulants (e.g. enoxaparin, heparin)., Indications: Atrial Fibrillation Start: 02-25-2021 End: 11-22-2024 take 1 tablet by mouth twice daily Apixaban (Eliquis) 5 mg tablet Active 5 mg PO TWICE A DAY 180 January 05, 2024 12:31pm Start: 11-24-2020 End: 02-24-2021 take 1 tablet by mouth twice daily Apixaban (Eliquis) 2.5 mg tablet Discontinued 2.5 mg PO TWICE A DAY 60 November 24, 2020 4:17pm February 24, 2021 4:23pm Start: 11-16-2020 End: 11-24-2020 take 1 tablet by mouth twice daily Apixaban (Eliquis) 5 mg tablet Discontinued 5 mg PO TWICE A DAY 60 November 16, 2020 12:00am November 24, 2020 4:17pm take 1 tablet by raj th every twelve hours Eliquis 2.5 MG tablet Take 1 tablet by mouth every 12 hours. 0 Active Comment on above: Take 1 tablet by raj th every 12 hours. atorvastatin 20 mg oral tablet (20 sources) HMG-CoA Reductase Inhibitor Start: take 0.5 tablet by mouth once atorvastatin (LIPITOR) 20 mg tablet Take 0.5 tablets by mouth every afternoon. 0 04/03/2023 Active Start: 04-01-2021 take 10 mg by mouth once daily Atorvastatin Active 10 MG PO DAILY April 01, 2021 1:00am Start: 10-28-2020 End: 08-18-2023 take 10 mg by mouth once daily Atorvastatin 20 mg tabl et Discontinued 10 mg PO DAILY April 01, 2021 1:00am August 18, 2023 12:04pm On Hold: Elevated LFT's per [facility] Start: 10-28-2020 End: 11-01-2023 take 1 tablet by mouth once daily in the morning atorvastatin 10 MG tablet Take 1 tablet by mouth daily every morning. 10/28/2020 11/01/2023 Discontinued (Medication Reconciliation (suppress cancel msg)) Start: 01-31-2015 End: 04-01-2021 take 5 mg by mouth once daily Atorvastatin 10 MG table t Discontinued 5 mg PO DAILY January 31, 2015 1:00am April 01, 2021 7:04pm take at night every other day per pt Start: 01-31-2015 End: 04-01-2021 take 5 mg by mouth once daily Atorvastatin Discontinue d 5 MG PO DAILY January 31, 2015 1:00am April 01, 2021 7:04pm take at night every other day per pt Comment on above: Take 0.5 tablets by mouth every afternoon. calcium citrate 1000 mg oral tablet (1 source) Start: 08-18-19 take 0.5 tablet by mouth in the evening Calcium Citrate 1,000 mg tablet Active 1000 mg PO .COMPLEX August 18, 2023 12:00am 1,000 mg orally 1 in the am, and 1/2 tab in the pm; Calcium Citrate / Vitamin D (20 sources) take 1 tablet by mouth once daily Calcium Citrate-Vitamin D (CITRACAL + D PO) Take 1 tablet by mouth daily. Active cholestyramine resin 4000 mg powder for oral suspension (20 sources) Bile Acid Sequestrant Start: 06-13-19 End: 11-23-19 take 1 dose by mouth once daily cholestyramine 4 g Pack Take 1 packet by mouth daily. 30 packet 11/22/2024 Active chondroitin sulfates 200 mg / glucosamine hydrochloride 250 mg oral tablet (11 sources) Start: 04-01-19 Glucosamine-Chondroit in (Osteo Bi-Flex) 250-200 mg tablet Active 2 {tbl} PO DAILY April 01, 2021 1:00am Coenzyme Q10 (COQ10 PO) (20 sources) Coenzyme Q10 (CO Q10 PO) Take 200 mg by mouth daily. OTC Active ELDERBERRY FRUIT (11 sources) Start: 05-22-19 take 400 mg by mouth once daily Elderberry Fruit Active 400 MG PO DAILY May 21, 2021 2:21pm Start: 05-21-2021 End: 08-18-2023 take 1 capsule by mouth once daily Elderberry Fruit 200 mg capsule Discontinued 400 mg PO DAILY May 21, 2021 12:00am August 18, 2023 12:06pm Start: 05-21-2021 take 400 mg by mouth once devin y Elderberry Fruit Active 400 MG PO DAILY May 20, 2021 11:00pm Start: 05-21-2021 take 400 mg by mouth once devin y Elderberry Fruit Active 400 MG PO DAILY May 21, 2021 12:00am flecainide acetate 100 mg oral tablet (20 sources) Antiarrhythmic Start: 02-20-2023 End: 08-15-2023 take 100 mg by mouth every twelve hours 100 mg, Oral, EVERY 12 HOURS, First dose (after last modification) on 08/12/23 at 0900, Until Discontinued Start: 05-31-2021 End: 06-01-2021 take 100 mg by mouth every twelve hours 100 mg, Oral, EVERY 12 HOURS, First dose on 05/31/21 at 0900, Until Discontinued Start: 10-26-2020 End: 07-13-2023 flecainide 100 MG tablet Will e one tablet twice a day for heartbeat. 10/26/2020 Active Start: 06-27-2017 End: 10-26-2020 take 1 tablet by mouth every twelve hours Flecainide 100 mg tablet Discontinued 100 mg PO Q12H 180 October 18, 2019 4:47pm September 04, 2020 3:05pm Comment on above: Take 1 tablet by raj th every 12 hours. gabapentin 300 mg oral capsule (20 sources) Anti-epileptic Agent Start: 06-11-2024 take 1 capsule by mouth twice daily, then take 1 capsule by mouth three times daily Gabapentin 300 mg capsule Active 300 mg PO TWICE A DAY June 11, 2024 12:00am 1 twice a day for 3 days then 1 3 times daily Start: 03-16-2021 End: 04-01-2021 take 1 capsule by mouth once daily Gabapentin 100 mg capsule Discontinued 100 mg PO DAILY March 16, 2021 1:00am April 01, 2021 7:06pm take 1 capsule by mo ut three times daily Gabapentin 300 MG capsule Take 1 capsule by mouth 3 times daily. Active hydroCHLOROthiazide 25 mg oral tablet (20 sources) Thiazide Diuretic Start: 12-19-2023 take 1 tablet by mouth once daily hydroCHLOROthiazide 25 MG tablet Take 1 tablet by mouth daily. 12/19/2023 Active Start: 07-27-2018 End: 05-03-2019 take 1 tablet by mouth once daily Hydrochlorothiazide 25 mg tablet Discontinued 25 mg PO DAILY July 27, 2018 2:50pm May 03, 2019 9:21am Start: 12-22-2016 End: 07-27-2018 take 1 capsule by mouth once daily Hydrochlorothiazide 12.5 MG capsule Discontinued 12.5 mg PO DAILY December 22, 2016 1:00am July 27, 2018 2:48pm lisinopril 40 mg oral tablet (20 sources) Angiotensin Converting Enzyme Inhibitor Start: 01-24-2024 take 1 tablet by mouth once daily Lisinopril 40 mg tablet Active 40 mg PO DAILY January 24, 2024 2:36pm Start: 11-03-2023 End: 01-24-2024 Lisinopril 40 mg tablet Disc ontinued 60 mg PO DAILY 135 November 03, 2023 8:49am January 24, 2024 2:36pm Start: 08-12-2023 End: 08-15-2023 take 40 mg by mouth once daily in the morning 40 mg, Oral, DAILY EVERY MORNING, First dose (after last modification) on Mon08/12/23 at 0900, Until Discontinued Start: 08-12-2023 End: 08-12-2023 Start: 06-01-2021 End: 06-01-2021 take 40 mg by mouth once daily in the morning 40 mg, Oral, DAILY EVERY MORNING, First dose on Mon06/01/21 at 0900, Until Discontinued Start: 05-15-2020 End: 11-03-2023 take 1 tablet by mouth once daily Lisinopril 40 mg tablet Discontinued 40 mg PO DAILY August 18, 2023 12:10pm November 03, 2023 8:49am Start: 03-19-2020 End: 05-15-2020 take 1 tablet by mouth twice daily Lisinopril 20 mg tablet Discontinued 20 mg PO TWICE A DAY 180 March 23, 2020 3:37pm May 15, 2020 9:35am Start: 05-03-2019 End: 03-19-2020 take 1 tablet by mouth once daily Lisinopril 20 mg tablet Discontinued 20 mg PO DAILY May 03, 2019 9:21am March 19, 2020 6:39pm Start: 01-31-2015 End: 05-03-2019 take 1 tablet by mouth once daily Lisinopril 10 mg tablet Discontinued 10 mg PO DAILY October 23, 2018 3:13pm May 03, 2019 9:22am Comment on above: Take 1 tablet by raj th every afternoon. loperamide hydrochloride 2 mg oral capsule (20 sources) Opioid Agonist Start: 11-22-2024 Loperamide 2 MG capsule Take 1 capsule by mouth as needed for Diarrhea. 2 caps after 1st loose stool, then 1 cap after each loose stool thereafter. Max: 8 caps/24 hrs 60 capsule 1 11/22/2024 Active Start: 08-13-2023 End: 09-06-2024 take 1 capsule by mouth every four hours as needed 2 mg, Oral, EVERY 4 HOURS NEEDED, Starting on 08/13/23 at 0935, Until Tu08/15/23 at 1811, Diarrhea Magnesium (20 sources) Start: 04-01-2021 take 250 mg by mouth once daily Magnesium Active 250 MG PO DAILY April 01, 2021 7:03pm Start: 04-01-2021 take 1 tablet by raj th once daily Magnesium 250 mg tablet Active 250 mg PO DAILY April 01, 2021 1:00am Start: 04-01-2021 take 250 mg by mouth once devin y Magnesium Active 250 MG PO DAILY April 01, 2021 12:00am Start: 04-01-2021 take 250 mg by mouth once devin y Magnesium Active 250 MG PO DAILY April 01, 2021 1:00am Start: 01-30-2018 End: 05-15-2020 Magnesium 250 mg tablet Disc ontinued 400 mg PO DAILY January 30, 2018 10:34am May 15, 2020 9:36am Start: 01-30-2018 End: 05-15-2020 take 400 mg by mouth once daily Magnesium Discontinued 400 MG PO DAILY January 30, 2018 9:34am May 15, 2020 8:36am Start: 01-30-2018 End: 05-15-2020 take 400 mg by mouth once daily Magnesium Discontinued 400 MG PO DAILY January 30, 2018 10:34am May 15, 2020 9:36am Start: 07-28-2015 End: 01-30-2018 take 250 mg by mouth once daily Magnesium Discontinued 250 MG PO DAILY July 28, 2015 1:34pm January 30, 2018 10:34am Start: 07-28-2015 End: 01-30-2018 take 1 tablet by mouth once daily Magnesium 250 MG tablet Discontinued 250 mg PO DAILY July 28, 2015 12:00am January 30, 2018 10:34am Start: 07-28-2015 End: 01-30-2018 take 250 mg by mouth once daily Magnesium Discontinued 250 MG PO DAILY July 27, 2015 11:00pm January 30, 2018 9:34am Start: 07-28-2015 End: 01-30-2018 take 250 mg by mouth once daily Magnesium Discontinued 250 MG PO DAILY July 28, 2015 12:00am January 30, 2018 10:34am Magnesium 200 MG tablet Take 250 mg by mouth daily every morning. Magnesium Glycinate: OTC Active take 1 tablet by raj th once daily in the morning Magnesium 250 MG tablet Take 1 tablet by mouth daily every morning. Suspended take 1 tablet by raj th once daily in the morning Magnesium 250 MG tablet Take 1 tablet by mouth daily every morning. Active take 1 tablet by raj th once daily in the morning Magnesium 250 MG tablet Take 1 tablet by mouth daily every morning. 0 Active take 1 tablet by raj th once daily in the morning Magnesium 250 MG tablet Take 250 mg by mouth daily every morning. 0 Active mecobalamin 1 mg chewable tablet (11 sources) Start: 09-04-2020 Mecobalamin (V itamin B12) (B12 Active) 1,000 mcg Tablet,Chewable Active 1000 ug PO DAILY September 04, 2020 12:00am oxyCODONE hydrochloride 5 mg oral tablet (9 sources) Opioid Agonist Start: 07-16-2022 take 5 mg by mouth every six hours Oxycodone Active 5 MG PO EVERY 6 HOURS 12 July 16, 2022 Start: 07-16-2022 End: 01-10-2023 take 5 mg by mouth every six hours as needed for pain Oxycodone 10 mg tablet Discontinued 5 mg PO EVERY 6 HOURS as needed for pain 7 July 16, 2022 January 10, 2023 11:00am Start: 07-16-2022 End: 01-10-2023 take 5 mg by mouth every six hours Oxycodone Discontinued 5 MG PO EVERY 6 HOURS 7 July 16, 2022 January 10, 2023 11:00am Start: 05-31-2021 End: 06-29-2021 take 1 tablet by mouth every six hours as needed for pain oxyCODONE 5 MG tablet 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 28 tablet 0 05/31/2021 06/29/2021 Discontinued microencapsulated potassium chloride 20 meq extended release oral tablet (20 sources) Start: 05-21-2021 take 1 tablet by mouth once daily Potassium Chloride 20 mEq tablet,ER particles/crystals Active 20 meq PO DAILY May 21, 2021 12:00am Start: 06-14-2018 End: 05-03-2019 take 1 tablet by mouth twice daily Potassium Chloride 20 mEq tablet,ER particles/crystals Discontinued 20 meq PO TWICE A DAY 60 June 14, 2018 12:00am May 03, 2019 9:21am Start: 01-30-2018 End: 06-14-2018 take 2 tablets by mouth once daily Potassium Chloride 10 mEq tablet,ER particles/crystals Discontinued 20 meq PO DAILY January 30, 2018 10:32am June 14, 2018 4:37pm Start: 01-30-2018 End: 06-14-2018 take 20 mEq by mouth once daily Potassium Chloride Discontinued 20 MEQ PO DAILY January 30, 2018 10:32am June 14, 2018 4:37pm Start: 01-31-2015 End: 01-30-2018 take 1 tablet by mouth once daily as needed for dizziness Potassium Chloride 10 MEQ tablet Discontinued 10 meq PO DAILY NEEDED as needed for Dizziness January 31, 2015 1:00am January 30, 2018 10:34am take 20 mEq by mouth once daily POTASSIUM CHLORIDE ER PO Take 20 mEq by mouth daily. Active predniSONE 50 mg oral tablet (20 sources) Start: 12-14-2023 End: 05-24-2024 take 1 tablet by mouth every seven hours predniSONE 50 MG tablet Indications: Thyroid nodule , Neuroendocrine carcinoma metastatic to liver , Contrast media allergy Take 1 tablet by mouth As directed. Prednisone 50mg [address] scan; Prednisone 50mg [address]; Prednisone 50mg [address] with diphenhydramine 50mg 3 tablet 3 05/24/2024 Active Start: 08-12-2023 End: 08-12-2023 take 1 tablet by mouth every six hours 50 mg, Oral, EVERY 6 HOURS NON-STANDARD, 2 doses, First dose (after last modification) on 08/12/23 at 0600, Last dose on 08/12/23 at 1200, For patients who have had previous adverse reactions to Iodinated Contrast / Gadolinium agents, Order should be timed to start 13 hours prior to procedure. Administer dose at 13 hours, 7 hours, and 1 hour prior to procedure. Start: 08-11-2023 End: 08-12-2023 take 1 tablet by mouth every six hours 50 mg, Oral, EVERY 6 HOURS NON-STANDARD, 3 doses, First dose on Mon08/11/23 at 2215, Last dose on Mon08/12/23 at 1015, For patients who have had previous adverse reactions to Iodinated Contrast / Gadolinium agents, Order should be timed to start 13 hours prior to procedure. Administer dose at 13 hours, 7 hours, and 1 hour prior to procedure. Start: 04-15-2021 End: 06-29-2021 predniSONE 50 MG tablet Nerissa cations: Allergic reaction to dye, subsequent encounter Take 1 tablet by mouth As directed. Take one tablet 13 hours prior and one tablet 7 hours prior to dye injection in Radiology 2 tablet 0 04/15/2021 06/29/2021 Discontinued predniSONE & diphenhydrAMINE 3 x 50 MG & 1 x 50 MG Kit (20 sources) Start: 05-24-2024 predniSONE & d iphenhydrAMINE 3 x 50 MG & 1 x 50 MG Kit Take 1 kit by mouth As directed. Take 50 mg prednisone 13 & 7 hrs prior to scans. Take 50 mg benadryl & 50 mg prednisone 1 hour prior. 1 kit 3 05/24/2024 Active Start: 04-29-2024 End: 05-24-2024 predniSONE & diphenhydrAMINE 3 x 50 MG & 1 x 50 MG Kit Take 1 kit by mouth As directed. Take 50 mg prednisone 13 & 7 hrs prior to scans. Take 50 mg benadryl & 50 mg prednisone 1 hour prior. Ok to split kit if needed 1 kit 3 04/29/2024 05/24/2024 Discontinued (Reorder) Start: 04-29-2024 predniSONE & d iphenhydrAMINE 3 x 50 MG & 1 x 50 MG Kit Take 1 kit by mouth As directed. Take 50 mg prednisone 13 & 7 hrs prior to scans. Take 50 mg benadryl & 50 mg prednisone 1 hour prior. Ok to split kit if needed 1 kit 3 04/29/2024 Active Start: 06-29-2021 End: 04-29-2024 predniSONE & diphenhydrAMINE 3 x 50 MG & 1 x 50 MG Kit Take 1 kit by mouth As directed. Take 50 mg prednisone 13 & 7 hrs prior to scans. Take 50 mg benadryl & 50 mg prednisone 1 hour prior. Ok to split kit if needed 1 kit 3 06/29/2021 04/29/2024 Discontinued (Reorder) Start: 06-29-2021 predniSONE & d iphenhydrAMINE 3 x 50 MG & 1 x 50 MG Kit Take 1 kit by mouth As directed. Take 50 mg prednisone 13 & 7 hrs prior to scans. Take 50 mg benadryl & 50 mg prednisone 1 hour prior. Ok to split kit if needed 1 kit 3 06/29/2021 Suspended Start: 06-29-2021 predniSONE & d iphenhydrAMINE 3 x 50 MG & 1 x 50 MG Kit Take 1 kit by mouth As directed. Take 50 mg prednisone 13 & 7 hrs prior to scans. Take 50 mg benadryl & 50 mg prednisone 1 hour prior. Ok to split kit if needed 1 kit 3 06/29/2021 Active pyridoxine (20 sources) take 100 mg by mouth once daily Pyridoxine HCl (B-6 PO) Take 100 mg by mouth daily. Active risedronate sodium 35 mg oral tablet (20 sources) Start: 02-05-2023 risedronate 35 MG tablet Take 1 tablet by mouth every 7 days. Mondays02/05/2023 Active Start: 05-21-2021 take 1 tablet by raj th every week Risedronate 35 mg tablet Active 35 mg PO EVERY WEEK May 21, 2021 12:00am Comment on above: Take 35 mg by mouth one time a week. Turmeric Root Extract (12 sources) Start: 04-01-2021 take 500 mg by mouth once daily Turmeric Root Extract Active 500 MG PO DAILY April 01, 2021 7:03pm Start: 04-01-2021 End: 08-18-2023 take 1 capsule by mouth once daily Turmeric Root Extract 500 mg capsule Discontinued 500 mg PO DAILY April 01, 2021 1:00am August 18, 2023 12:07pm Start: 04-01-2021 take 500 mg by mouth once devin y Turmeric Root Extract Active 500 MG PO DAILY April 01, 2021 12:00am Start: 04-01-2021 take 500 mg by mouth once devin y Turmeric Root Extract Active 500 MG PO DAILY April 01, 2021 1:00am End: 06-01-2021 take 1 tablet by mouth once daily in the morning Turmeric 500 MG tablet Take 500 mg by mouth daily every morning. 0 06/01/2021 Discontinued (Stop Taking at Discharge) vitamin b12 1 mg oral tablet (20 sources) Vitamin B12 take 1 tablet by mouth once daily Cyanocobalamin (B-12) 1000 MCG tablet Take by mouth daily. Moy x2 for dose, OTC Active End: 06-01-2021 take 1 capsule by mouth once daily Cyanocobalamin (B-12) 1000 MCG capsule Take 1,000 mcg by mouth daily. 0 06/01/2021 Discontinued (Stop Taking at Discharge) vitamin b6 50 mg oral tablet (12 sources) Start: 05-15-2020 take 1 tablet by mouth once daily Pyridoxine (Vitamin B6) 50 mg tablet Active 50 mg PO DAILY May 15, 2020 12:00am End: 06-01-2021 take 1 tablet by mouth once daily Pyridoxine HCl (B-6) 100 MG tablet Take 100 mg by mouth daily. 0 06/01/2021 Discontinued (Stop Taking at Discharge) Completed/Discontinued Medications Medication Drug Class(es) Dates Sig (Normalized) Sig (Original) acetaminophen 325 mg oral tablet (20 sources) Start: 08-12-2023 End: 08-15-2023 take 1 tablet by mouth every six hours as needed Start: 08-12-2023 End: 08-12-2023 take 1 tablet by mouth every six hours as needed 650 mg, Oral, EVERY 6 HOURS NEEDED, Starting on 08/12/23 at 0206, Until 08/12/23 at 0338, Mild Pain, Oral temp > 100.4 F, Up to 2 g per day, Maximum dose of acetaminophen is 4000 mg from all sources in 24 hours. Start: 05-31-2021 End: 06-01-2021 take 1 tablet by mouth every six hours as needed acetaminophen (TYLENOL) tablet 650 mg Start: 03-11-2021 End: 03-31-2023 take 2 tablets by mouth every six hours acetaminophen 325 MG tablet Take 2 tablets by mouth every 6 hours. 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 Take one tablet daily for 5 days leading up to embolization procedure in Radiology 5 tablet 0 04/15/2021 06/01/2021 Discontinued (Stop Taking at Discharge) aluminum hydroxide 40 mg/ml / magnesium hydroxide 40 mg/ml / simethicone 4 mg/ml oral suspension (2 sources) Start: 08-12-2023 End: 08-15-2023 take 30 mL by mouth every six hours as needed 10 ml aminophylline 25 mg/ml injection (1 source) Start: 11-06-2023 End: 11-06-2023 75 mg, Intravenous, ADMINISTER DIRECTED, 1 dose, Starting on Mon11/06/23 at 1036, Until Mon11/06/23 at 1036, Other, Lexiscan reversal for adverse effects, Administer as directed by physician. Extravasation Risk, Intra-op/Intra-Proc Start: 11-06-2023 End: 11-06-2023 75 mg, Intravenous, ADMINIST ER DIRECTED, 1 dose, Starting on Mon11/06/23 at 1036, Until Mon11/06/23 at 1036, Other, Lexiscan reversal for adverse effects, Administer as directed by physician. Extravasation Risk, Intra-op/Intra-Proc arginine/lysine 25gm/25gm in 1000 ml NS infusion 1,000 mL (3 sources) Start: 12-13-2024 End: 12-13-2024 1,000 mL, at 0-250 mL/hr, Intravenous, ONCE (OUTPT CLINIC), 1 dose, Starting on Mon12/13/24 at 1053, Until Mon12/13/24 at 1547, Please call [facility] at [phone] PRIOR TO STARTING ARGININE/LYSINE INFUSION to confirm start time. Initiate infusion at 250 mL/hr beginning 30 minutes prior to start of Lutathera. Once Lutathera infusion is complete, re-program remaining amino acid volume to run over 3 hours. Start: 09-20-2024 End: 09-20-2024 1,000 mL, at 0-250 mL/hr, In travenous, ONCE (OUTPT CLINIC), 1 dose, Starting on Mon09/20/24 at 0746, Until Mon09/20/24 at 1316, Please call [facility] at [phone] PRIOR TO STARTING ARGININE/LYSINE INFUSION to confirm start time. Initiate infusion at 250 mL/hr beginning 30 minutes prior to start of Lutathera. Once Lutathera infusion is complete, re-program remaining amino acid volume to run over 3 hours. Start: 07-26-2024 End: 07-26-2024 1,000 mL, at 0-250 mL/hr, In travenous, ONCE (OUTPT CLINIC), 1 dose, Starting on Mon07/26/24 at 0757, Until Mon07/26/24 at 1248, Please call [facility] at [phone] PRIOR TO STARTING ARGININE/LYSINE INFUSION to confirm start time. Initiate infusion at 250 mL/hr beginning 30 minutes prior to start of Lutathera. Once Lutathera infusion is complete, re-program remaining amino acid volume to run over 3 hours. aspirin 81 mg delayed release oral tablet (20 sources) Platelet Aggregation Inhibitor, Nonsteroidal Anti-inflammatory Drug Start: 12-15-2023 End: 12-15-2023 324 mg, Oral, ONCE, 1 dose, On Mon12/15/23 at 0800, Patient to receive at least 30 minutes prior to procedure. Instruct patient to chew and not swallow., Pre-op/Pre-Proc Start: 02-24-2021 End: 05-21-2021 take 1 tablet by mouth once daily Aspirin (Adult Aspirin Regimen) 81 mg tablet,delayed release (DR/EC) Discontinued 81 mg PO DAILY February 24, 2021 1:00am May 21, 2021 2:22pm On Hold: surgery Start: 05-24-2018 End: 05-03-2019 take 1 tablet by mouth once daily Aspirin (Adult Aspirin Regimen) 81 mg tablet,delayed release (DR/EC) Discontinued 81 mg PO DAILY May 24, 2018 12:00am May 03, 2019 9:21am atropine sulfate 0.025 mg / diphenoxylate hydrochloride 2.5 mg oral tablet (20 sources) Anticholinergic, Cholinergic Muscarinic Antagonist, Antidiarrheal Start: 09-06-2024 End: 09-20-2024 take 1 tablet by mouth four times daily as needed for diarrhea Diphenoxylate-atropine 2.5-0.025 MG tablet EC/DR Indications: Neuroendocrine tumor , Diarrhea, unspecified type Take 1 tablet by mouth 4 times daily as needed for Diarrhea for up to 14 days. 56 tablet 09/06/2024 09/20/2024 Start: 06-12-2024 End: 07-12-2024 take 1 tablet by mouth four times daily as needed for diarrhea Diphenoxylate-atropine (Lomotil) 2.5-0.025 MG tablet EC/DR Indications: Neuroendocrine tumor Take 1 tablet by mouth 4 times daily as needed for Diarrhea. 60 tablet 1 06/12/2024 07/12/2024 bisacodyl 10 mg rectal suppository (2 sources) Stimulant Laxative Start: 08-12-2023 End: 08-15-2023 calcium carbonate 1500 mg / cholecalciferol 0.01 mg oral tablet (11 sources) Vitamin D Start: 07-28-2015 End: 04-01-2021 take 1 tablet by mouth three times daily Calcium Carbonate-Vitamin D3 1 EACH tablet Discontinued 600 mg PO THREE TIMES A DAY July 28, 2015 12:00am April 01, 2021 7:08pm calcium chloride 0.0014 meq/ml / potassium chloride 0.004 meq/ml / sodium chloride 0.103 meq/ml / sodium lactate 0.028 meq/ml injectable solution (3 sources) Start: 08-11-2023 End: 08-13-2023 Intravenous, at 75 mL/hr, CONTINUOUS, Starting on 08/12/23 at 0345, Until 08/13/23 at 1109 Start: 05-31-2021 End: 05-31-2021 lactated ringers IV solution cholecalciferol 0.05 mg oral tablet (20 sources) Vitamin D Start: 08-12-2023 End: 08-15-2023 take 2000 [IU] by mouth once daily 2,000 Units, Oral, DAILY, First dose (after last modification) on 08/12/23 at 0900, Until Discontinued Start: 08-12-2023 End: 08-12-2023 Start: 07-28-2015 [facility] Cholecalciferol (Vitamin D3) 1,000 UNIT tablet Active 2000 U PO DAILY July 28, 2015 12:00am Start: 07-28-2015 take 2000 [IU[facility] Cholecalciferol (Vitamin D3) Active 2000 UNIT PO DAILY July 28, 2015 12:00am take 1 capsule by mo [facility] once daily cholecalciferol 50 MCG (2000 UT) capsule Take 1 capsule by mouth daily. OTC, gummy x 2 for dose Active End: 06-01-2021 take 1 tablet by mouth once daily cholecalciferol 25 MCG (1000 UNIT) tablet Take 1,000 Units by mouth daily. 0 06/01/2021 Discontinued (Stop Taking at Discharge) Comment on above: Take 1 capsule by mo [facility] once daily. 200 ml ciprofloxacin 2 mg/ml injection (1 source) Quinolone Antimicrobial Start: 2021 End: 2021 take 400 mg intravenously every twelve hours ciprofloxacin (CIPRO) 400 mg in dextrose 5% premix IVPB clopidogrel 75 mg oral tablet (20 sources) P2Y12 Platelet Inhibitor Start: 2018 End: 2019 take 1 tablet by mouth once daily Clopidogrel 75 mg tablet Discontinued 75 mg PO DAILY June 06, 2018 10:07am May 03, 2019 9:21am 1 ml diphenhydrAMINE hydrochloride 50 mg/ml cartridge (2 sources) Histamine-1 Receptor Antagonist Start: 2023 End: 2023 50 mg, Intravenous, 60 MIN PRE-OP, 1 dose, On Mon12/15/23 at 0845, Nursing to administer one hour prior to procedure., Pre-op/Pre-Proc Start: 05-31-2021 End: 05-31-2021 diphenhydrAMINE (BENADRYL) i njection 50 mg docusate sodium 100 mg oral capsule (5 sources) Start: 05-31-2021 End: 06-29-2021 take 1 capsule by mouth twice daily docusate 100 MG capsule Take 1 capsule by mouth 2 times daily. 30 capsule 0 05/31/2021 06/29/2021 Discontinued 0.6 ml enoxaparin sodium 100 mg/ml prefilled syringe (11 sources) Low Molecular Weight Heparin Start: 03-23-2021 End: 04-01-2021 Enoxaparin 60 mg/0.6 mL syringe Discontinued 60 mg SC Q12H 6 March 23, 2021 1:00am April 01, 2021 7:06pm 2 ml famotidine 10 mg/ml injection (2 sources) Histamine-2 Receptor Antagonist Start: 12-15-2023 End: 12-15-2023 20 mg, Intravenous, 60 MIN PRE-OP, 1 dose, On Mon12/15/23 at 0845, Nursing to administer one hour prior to procedure. Administer undiluted by slow IV push at a rate not to exceed 10mg/min., Pre-op/Pre-Proc Start: 05-31-2021 End: 06-01-2021 faMOTIdine (PEPCID) tablet 2 0 mg 2 ml fentaNYL 0.05 mg/ml injection (1 source) Opioid Agonist Start: 05-31-2021 End: 05-31-2021 fentaNYL (SUBLIMAZE) injection 0-300 mcg ferrous sulfate 325 mg oral tablet (11 sources) Start: 06-14-2018 End: 05-15-2020 take 1 tablet by mouth once daily Ferrous Sulfate 325 mg (65 mg iron) tablet Discontinued 325 mg PO DAILY June 14, 2018 12:00am May 15, 2020 9:35am furosemide 40 mg oral tablet (11 sources) Loop Diuretic Start: 12-24-2020 End: 04-01-2021 take 1 tablet by mouth once daily Furosemide 40 mg tablet Discontinued 40 mg PO DAILY December 24, 2020 1:00am April 01, 2021 7:08pm Gadopiclenol SOLN 1-25 mL (3 sources) Start: 06-07-2024 End: 06-07-2024 1-25 mL, Intravenous, ONCE, 1 dose, On Mon06/07/24 at 0915 Start: 01-01-2024 End: 01-01-2024 1-25 mL, Intravenous, ONCE, 1 dose, On 01/01/24 at 1045 Start: 08-12-2023 End: 08-12-2023 1-25 mL, Intravenous, ONCE, 1 dose, On 08/12/23 at 2245 gadoterate Meglumine (DOTARE M) 5 MMOL/10ML injection 3-60 mL (2 sources) Start: 03-24-2023 End: 03-24-2023 gadoterate Meglumine (DOTARE M) 5 MMOL/10ML injection 3-60 mL Start: 09-08-2022 End: 09-08-2022 gadoterate Meglumine (DOTARE M) 5 MMOL/10ML injection 3-60 mL Gallium Ga 68 Dotatate (Netspot) 0.5-5.94 millicurie (3 sources) Start: 06-14-2024 End: 06-14-2024 0.5-5.94 millicurie, Intravenous, ONCE, 1 dose, On Mon06/14/24 at 0900 Start: 06-30-2023 End: 06-30-2023 0.5-5.94 millicurie, Intrave nous, ONCE, 1 dose, On Mon06/30/23 at 1000 Start: 02-03-2022 End: 02-03-2022 Gallium Ga 68 Dotatate (Nets pot) 0.5-5.94 millicurie 250 ml heparin sodium, porcine 100 unt/ml injection (1 source) Unfractionated Heparin, Anti-coagulant Start: 08-12-2023 End: 08-13-2023 CONTINUOUS, Starting on 08/12/23 at 1230, Until 08/13/23 at 1214, STANDARD SLIDING SCALE FOR PATIENTS WEIGHT LESS THAN 125KG: Initiate dose at 18 units/kg/hr. If PTT is less than 47, increase dose by 3 units/kg/hr. If PTT is 47-60, increase dose by 2 units/kg/hr. If PTT is 61-71, increase dose by 1 unit/kg/hr. If PTT is 72-95, no change. If PTT is 96-111, decrease dose by 1 unit/kg/hr. If PTT is 112-126, hold infusion for 60 minutes and decrease dose by 2 units/kg/hr. If PTT greater than 126, hold infusion and check PTT every 2 hours. Once PTT is in goal range or below, restart infusion at 3 units/kg/hr lower than the most recent dose. Note: Round PTT to nearest whole number (e.g. 70.5=71, 70.4=70)., Indications: Atrial Fibrillation 1 ml hydrALAZINE hydrochloride 20 mg/ml injection (2 sources) Arteriolar Vasodilator Start: 05-31-2021 End: 06-01-2021 hydrALAZINE (APRESOLINE) injection 2 mg Start: 05-31-2021 End: 06-01-2021 take 10 mg intravenously every four hours as needed hydrALAZINE (APRESOLINE) injection 10 mg hydrocortisone 100 mg injection (1 source) Corticosteroid Start: 05-31-2021 End: 05-31-2021 hydrocortisone sodium succinate PF (SOLU-CORTEF) injection 100 mg 1 ml HYDROmorphone hydrochloride 1 mg/ml cartridge (1 source) Opioid Agonist Start: 05-31-2021 End: 06-01-2021 take 0.5 mg intravenously every three hours as needed HYDROmorphone (DILAUDID) injection 0.5 mg ibuprofen 200 mg oral capsule (14 sources) Nonsteroidal Anti-inflammatory Drug End: 03-31-2023 Ibuprofen 200 MG capsule Take 1 capsule by mouth. Take 1-3 capsules at a given time. Uses for leg pain/aches. 03/31/2023 Discontinued (Patient Preference) iohexol (OMNIPAQUE) 300 MG/ML vial (1 source) Start: 05-31-2021 End: 06-01-2021 iohexol (OMNIPAQUE) 300 MG/ML vial labetalol hydrochloride 5 mg/ml injectable solution (1 source) beta-Adrenergic Jorge Start: 05-31-2021 End: 06-01-2021 labetalol (NORMODYNE) injection 5 mg labetalol (NORMODYNE) 10 mg in sodium chloride 0.9%, with overfill 62 mL (total volume) IVPB (1 source) Start: 05-31-2021 End: 06-01-2021 take 10 mg intravenously every four hours as needed labetalol (NORMODYNE) 10 mg in sodium chloride 0.9%, with overfill 62 mL (total volume) IVPB 25 ml lutetium larry 177 dotatate 10 mci/ml injection (3 sources) Start: 12-13-2024 End: 12-13-2024 100 millicurie, Intravenous, ONCE (OUTPT CLINIC), 1 dose, Starting on Mon12/13/24 at 1119, Until Mon12/13/24 at 1230, Dispensed dose is within 10% of ordered dose. Infuse via syringe pump at 70 ml/hr. After administration is complete, immediately flush infusion line & vial with at least 25 ml NS. MAR documentation to be completed by nuclear medicine. Start: 09-20-2024 End: 09-20-2024 200 millicurie, Intravenous, ONCE (OUTPT CLINIC), 1 dose, Starting on Mon09/20/24 at 0850, Until Mon09/20/24 at 0951, Dispensed dose is within 10% of ordered dose. Infuse via syringe pump at 70 ml/hr. After administration is complete, immediately flush infusion line & vial with at least 25 ml NS. MAR documentation to be completed by nuclear medicine. Start: 07-26-2024 End: 07-26-2024 200 millicurie, Intravenous, ONCE (OUTPT CLINIC), 1 dose, Starting on Mon07/26/24 at 0816, Until Mon07/26/24 at 0925, Dispensed dose is within 10% of ordered dose. Infuse via syringe pump at 70 ml/hr. After administration is complete, immediately flush infusion line & vial with at least 25 ml NS. MAR documentation to be completed by nuclear medicine. magnesium oxide 400 mg oral tablet (15 sources) Start: 08-12-2023 End: 08-15-2023 take 400 mg by mouth once daily 400 mg, Oral, DAILY, First dose (after last modification) on 08/12/23 at 0900, Until Discontinued Start: 06-01-2021 End: 06-01-2021 magnesium oxide (MAX-OX) tab let 800 mg Start: 05-31-2021 End: 05-31-2021 magnesium oxide (MAX-OX) tab let 400 mg Start: 05-15-2020 End: 04-01-2021 take 1 tablet by mouth once daily Magnesium Oxide 400 mg magnesium tablet Discontinued 400 mg PO DAILY May 15, 2020 12:00am April 01, 2021 7:05pm 50 ml magnesium sulfate 80 mg/ml injection (1 source) Start: 08-13-2023 End: 08-13-2023 4 g, Intravenous, Administer over 4 Hours, ONCE, 1 dose, On Mon08/13/23 at 0815 melatonin 3 mg oral tablet (2 sources) Start: 08-12-2023 End: 08-15-2023 meloxicam 15 mg oral tablet (11 sources) Nonsteroidal Anti-inflammatory Drug Start: 05-21-2018 End: 05-15-2020 take 1 tablet by mouth once daily Meloxicam (Mobic) 15 mg tablet Discontinued 15 mg PO DAILY May 21, 2018 12:00am May 15, 2020 9:36am do not take with other NSAID 24 hr metoprolol succinate 100 mg extended release oral tablet (20 sources) beta-Adrenergic Jorge Start: 08-12-2023 End: 08-12-2023 Start: 01-31-2015 End: 11-01-2023 take 1 tablet by mouth once daily Metoprolol Succinate 100 mg tablet extended release 24 hr Discontinued 100 mg PO DAILY July 14, 2023 11:18am September 12, 2023 10:13am Comment on above: Take 1 tablet by raj th every afternoon. 2 ml midazolam 1 mg/ml injection (1 source) Benzodiazepine Start: 2 End: 2 midazolam (VERSED) injection 0-10 mg Misc Natural Products (OSTEO BI-FLEX/5-LOXIN ADVANCED PO) (1 source) End: 2 take 500 mg by mouth once daily Misc Natural Products (OSTEO BI-FLEX/5-LOXIN ADVANCED PO) Take 500 mg by mouth daily. 0 06/01/2021 Discontinued (Stop Taking at Discharge) naloxone (NARCAN) injection 0.1 mg (1 source) Start: 2 End: 2 naloxone (NARCAN) injection 0.1 mg naproxen 500 mg oral tablet (11 sources) Nonsteroidal Anti-inflammatory Drug Start: 8 End: 8 take 1 tablet by mouth three times daily as needed for pain Naproxen 500 mg tablet Discontinued 500 mg PO THREE TIMES A DAY as needed for pain August 22, 2017 12:00am February 08, 2018 2:36pm octreotide 20 mg injection (20 sources) Somatostatin Analog Start: 4 End: 4 Octreotide,Microsphe res (Sandostatin Lar Depot) 20 mg suspension,extended rel recon Discontinued 30 mg IM every 4 weeks August 18, 2023 12:07pm August 18, 2023 12:09pm Start: 05-31-2021 End: 06-01-2021 octreotide (SANDOSTATIN) inj ection 100 mcg Start: 04-01-2021 End: 08-18-2023 Octreotide,Microspheres (Sandostatin Lar Depot) 20 mg suspension,extended rel recon Discontinued 20 mg IM every 4 weeks April 01, 2021 1:00am August 18, 2023 12:07pm End: 12-08-2023 inject 20 mg by intramuscular injection every 30 days octreotide acetate (SandoSTATIN LAR Depot) 20 MG Kit injection Inject 20 mg intramuscularly Once. Every 30 days 12/08/2023 Discontinued (Medication Reconciliation (suppress cancel msg)) Comment on above: Inject 20 mg intramu scularly. octreotide (SANDOSTATIN) 500 mcg in sodium chloride 0.9% 100 mL IV infusion (1 source) Start: 06-01-19 End: 06-02-19 octreotide (SANDOSTATIN) 500 mcg in sodium chloride 0.9% 100 mL IV infusion Mentor-3 Fatty Acids (10 sources) Start: 08-29-19 End: 04-01-19 take 1000 mg by mouth once daily Mentor-3 Fatty Acids Discontinued 1000 MG PO DAILY August 28, 2020 9:47am April 01, 2021 7:07pm Start: 08-28-2020 End: 04-01-2021 take 1000 mg by mouth once daily Mentor-3 Fatty Acids Discontinued 1000 MG PO DAILY August 27, 2020 11:00pm April 01, 2021 6:07pm Start: 08-28-2020 End: 04-01-2021 take 1000 mg by mouth once daily Mentor-3 Fatty Acids Discontinued 1000 MG PO DAILY August 28, 2020 12:00am April 01, 2021 7:07pm Mentor-3 Fatty Acids 1,000 mg capsule (1 source) Start: 08-28-2020 End: 04-01-2021 take 1 capsule by mouth once daily Mentor-3 Fatty Acids 1,000 mg capsule Discontinued 1000 mg PO DAILY August 28, 2020 12:00am April 01, 2021 7:07pm ondansetron 8 mg oral tablet (20 sources) Serotonin-3 Receptor Antagonist Start: 06-12-2024 End: 07-12-2024 take 1 tablet by mouth every eight hours as needed Ondansetron 8 MG tablet Take 1 tablet by mouth every 8 hours as needed for Nausea / Vomiting. 60 tablet 1 06/12/2024 07/12/2024 Start: 05-31-2021 End: 06-29-2021 take 1 tablet by mouth every six hours as needed ondansetron 4 MG tablet Take 1 tablet by mouth every 6 hours as needed. 30 tablet 0 05/31/2021 06/29/2021 Discontinued Start: 05-31-2021 End: 06-01-2021 take 4 mg intravenously every four hours as needed ondansetron 4mg/2ml (ZOFRAN) injection 4 mg take 1 tablet by raj th every eight hours as needed Ondansetron 4 MG tablet Take 1 tablet by mouth every 8 hours as needed for Nausea / Vomiting. Active ondansetron (ZOFRAN) 10 mg, dexAMETHasone (DECADRON) 20 mg in sodium chloride 0.9%, with overfill 70 mL (total volume) IVPB (1 source) Start: 05-31-2021 End: 05-31-2021 ondansetron (ZOFRAN) 10 mg, dexAMETHasone (DECADRON) 20 mg in sodium chloride 0.9%, with overfill 70 mL (total volume) IVPB Ondansetron 4mg/2ml (ZOFRAN) injection 4 mg (2 sources) Start: 08-12-2023 End: 08-15-2023 take 4 mg intravenously every six hours as needed Ondansetron 4mg/2ml (ZOFRAN) injection 4 mg Start: 08-12-2023 End: 08-12-2023 take 4 mg intravenously every six hours as needed Ondansetron 4mg/2ml (ZOFRAN) injection 4 mg 5 ml palonosetron 0.05 mg/ml injection (3 sources) Serotonin-3 Receptor Antagonist Start: 12-13-2024 End: 12-13-2024 0.25 mg, Intravenous, Administer over 0.5 Minutes, ONCE (OUTPT CLINIC), 1 dose, Starting on Mon12/13/24 at 1053, Until Mon12/13/24 at 1114, Give 30 minutes prior to ARGININE/LYSINE infusion (amino acid solution). Start: 09-20-2024 End: 09-20-2024 0.25 mg, Intravenous, Admini ster over 0.5 Minutes, ONCE (OUTPT CLINIC), 1 dose, Starting on Mon09/20/24 at 0746, Until Mon09/20/24 at 0804, Give 30 minutes prior to ARGININE/LYSINE infusion (amino acid solution). Start: 07-26-2024 End: 07-26-2024 0.25 mg, Intravenous, Admini ster over 0.5 Minutes, ONCE (OUTPT CLINIC), 1 dose, Starting on Mon07/26/24 at 0757, Until Mon07/26/24 at 0818, Give 30 minutes prior to ARGININE/LYSINE infusion (amino acid solution). polyethylene glycol [id number] [id number] mg powder for oral solution (2 sources) Osmotic Laxative Start: 08-14-2023 End: 08-15-2023 17 g, Oral, DAILY NEEDED, Starting on Mon08/14/23 at 1030, Until Mon08/15/23 at 1811, Constipation If No Bowel Movement in 48 Hours Start: 08-12-2023 End: 08-12-2023 17 g, Oral, DAILY, First dos e on Mon08/12/23 at 0900, Until Discontinued Potassium (1 source) End: 06-01-2021 take 90 mg by mouth once daily in the morning POTASSIUM PO Take 90 mg by mouth daily every morning. 0 06/01/2021 Discontinued (Stop Taking at Discharge) potassium bicarbonate 20 meq effervescent oral tablet (1 source) Start: 08-11-2023 End: 08-11-2023 take 15-30 mL by mouth once 40 mEq, Oral, ONCE, 1 dose, On Mon08/11/23 at 2230, Do not swallow whole. Dissolve completely in 3-4 ounces of water or cold juice before drinking. If administering via J tube, dilute in sterile water, wait for tablet to stop fizzing, swirl the solution and draw into a syringe suitable for attaching to the tube. After administration, flush tube with 15-30 ml water. potassium gluconate 2.35 meq oral tablet (11 sources) Start: 04-01-2021 End: 05-21-2021 take 1 tablet by mouth once daily Potassium Gluconate 550 mg (90 mg) tablet Discontinued 550 mg PO DAILY April 01, 2021 1:00am May 21, 2021 2:19pm promethazine hydrochloride 25 mg oral tablet (5 sources) Phenothiazine Start: 05-31-2021 End: 06-29-2021 take 1 tablet by mouth every six hours as needed promethazine 25 MG tablet Take 1 tablet by mouth every 6 hours as needed for Nausea / Vomiting. 30 tablet 0 05/31/2021 06/29/2021 Discontinued regadenoson (LEXISCAN) injection 0.4 mg (1 source) Start: 11-06-2023 End: 11-06-2023 0.4 mg, Intravenous, ONCE, 1 dose, On Mon11/06/23 at 0845, NM Procedure sennosides, long term 8.6 mg oral tablet (2 sources) Start: 08-12-2023 End: 08-15-2023 take 8.6 mg by mouth once daily 8.6 mg, Oral, DAILY, First dose (after last modification) on 08/12/23 at 0900, Until Discontinued sertraline 150 mg oral tablet (20 sources) Serotonin Reuptake Inhibitor Start: 08-12-2023 End: 08-15-2023 take 150 mg by mouth once daily 150 mg, Oral, DAILY, First dose (after last modification) on 08/12/23 at 0900, Until Discontinued Start: 08-12-2023 End: 08-12-2023 Start: 04-04-2023 take 1 tablet by [facility] once daily sertraline (ZOLOFT) 100 mg tablet TAKE 1 & 1/2 (ONE AND ONE-HALF) TABLETS BY MOUTH EVERY DAY 0 04/04/2023 Active Start: 05-31-2021 End: 06-01-2021 take 150 mg by mouth once daily in the morning 150 mg, Oral, DAILY EVERY MORNING, First dose on Mon05/31/21 at 0900, Until Discontinued Start: 08-01-2020 take 1.5 tablets by mouth once daily in the morning Sertraline 100 MG tablet Take 1.5 tablets by mouth daily every morning. 08/01/2020 Active Start: 08-01-2020 Sertraline HCl 150 MG capsule 150 mg daily every morning. 08/01/2020 Suspended Start: 08-01-2020 Sertraline HCl 150 MG capsule 150 mg daily every morning. 08/01/2020 Active Start: 08-01-2020 Sertraline HCl 150 MG capsule 150 mg daily every morning. 0 08/01/2020 Active Start: 01-31-2015 sertraline 100 MG tablet 150 mg daily every morning. 0 08/01/2020 Active Start: 01-31-2015 take 150 mg by mouth once devin y Sertraline Active 150 MG PO DAILY January 31, 2015 1:00am Comment on above: TAKE 1 & 1/2 (ONE AN D ONE-HALF) TABLETS BY MOUTH EVERY DAY 250 ml sodium chloride 9 mg/ml injection (12 sources) Start: 12-13-2024 End: 12-13-2024 500 mL, Intravenous, CONTINUOUS, Starting on Mon12/13/24 at 1100, Until Mon12/13/24 at 1756, Run at KVO and then stop-cock with amino acid solution infusion for PRN drug administration. Start: 09-20-2024 End: 09-20-2024 500 mL, Intravenous, CONTINU OUS, Starting on Mon09/20/24 at 0800, Until Mon09/20/24 at 1524, Run at KVO and then stop-cock with amino acid solution infusion for PRN drug administration. Start: 07-26-2024 End: 07-26-2024 500 mL, Intravenous, at 20-9 99 mL/hr, CONTINUOUS, Starting on Mon07/26/24 at 0800, Until Mon07/26/24 at 1558, Infuse at 20 mL/hr. May increase rate of carrier fluid to max rate of drug in line to manage drug induced burning at IV site during infusion and/or to clear the line of drug and flush the IV site for a maximum of 30 min post drug administration. Start: 06-07-2024 End: 06-07-2024 1-250 mL, Intravenous, ONCE NEEDED, 1 dose, Starting on Mon06/07/24 at 0902, Until Mon06/07/24 at 0922, Flush, MR Procedure Start: 01-01-2024 End: 01-01-2024 1-250 mL, Intravenous, ONCE NEEDED, 1 dose, Starting on Mon01/01/24 at 1036, Until Mon01/01/24 at 1037, Flush, MR Procedure Start: 11-06-2023 End: 11-06-2023 10-50 mL, Intravenous, ONCE NEEDED, 1 dose, Starting on Mon11/06/23 at 0804, Until Mon11/06/23 at 0920, Flush, NM Procedure Start: 08-12-2023 End: 08-15-2023 Start: 08-12-2023 End: 08-12-2023 Intravenous, at 20 mL/hr, NEEDED, Starting on Mon08/12/23 at 0204, Until 08/12/23 at 0338, Carrier Fluid - See Admin. Inst, 250mL 0.9NS to be used as carrier fluid for intermittent small volume or piggyback medication administration as needed. Infusion rate of the carrier fluid should be set at 20 mL/hr unless the rate as the intermittent medication is less than 20 mL/hr. For intermittent medications with a rate less than 20 mL/hr set the carrier fluid at that rate of the intermittent or piggy back medication. Start: 03-24-2023 End: 03-24-2023 Sodium chloride (PF) 0.9 % i njection 1-250 mL Start: 09-08-2022 End: 09-08-2022 Sodium chloride (PF) 0.9 % i njection 1-250 mL Start: 05-31-2021 End: 06-01-2021 sodium chloride 0.9% IV solu tion 250 mL Technetium tc 99m sestamibi (SESTAMIBI) 7.2-38.5 millicurie (1 source) Start: 11-06-2023 End: 11-06-2023 7.2-38.5 millicurie, Intravenous, ONCE, 1 dose, On Mon11/06/23 at 0815 Technetium tc 99m sestamibi (SESTAMIBI) 7.2-49.5 millicurie (1 source) Start: 11-06-2023 End: 11-06-2023 7.2-49.5 millicurie, Intravenous, ONCE, 1 dose, On Mon11/06/23 at 0815 triamcinolone acetonide 40 mg/ml injectable suspension (2 sources) Corticosteroid Start: 02-08-2018 End: 02-08-2018 Kenalog (triamcinolone acetonide) 40 mg/mL suspension for injection Discontinued 80 MG INTRAARTIC ONCE 2 February 08, 2018 2:27pm February 08, 2018 5:31pm ubidecarenone 100 mg oral capsule (12 sources) Start: 04-01-2021 End: 08-18-2023 Coenzyme Q10 (Co Q-10) 100 mg capsule Discontinued 100 mg PO DAILY April 01, 2021 1:00am August 18, 2023 12:06pm Problems Active Problems Problem Classification Problem Date Documented Da te Episodic/Chronic Abdominal pain (20 sources) Right lower quadrant pain; Translations: [Right lower quadrant pain] Episodic Allergic reactions (3 sources) Allergy to contrast media; Translations: [Radiographic dye allergy status] 05-24-2024 Episodic Cardiac dysrhythmias (20 sources) Supraventricular tachycardia; Translations: [Supraventricular tachycardia] Onset: 4 Chronic Cardiac dysrhythmias (5 sources) Palpitations; Translations: [Palpitations] 11-01-2023 Episodic Coronary atherosclerosis and other heart disease (9 sources) Calcification of coronary artery; Translations: [Atherosclerotic heart disease of knik coronary artery without angina pectoris] 12-08-2023 Chronic Deficiency and other anemia (11 sources) Anemia; Translations: [Anemia, unspecified] 09-28-2021 Episodic Deficiency and other anemia (20 sources) Anemia, unspecified; Translations: [Anemia, unspecified] Episodic Disorders of lipid metabolism (13 sources) Hyperlipidemia; Translations: [Hyperlipidemia, unspecified] Onset: 5 02-27-2018 Chronic E Codes: Fall (7 sources) Fall; Translations: [Unspecified fall, initial encounter] 03-09-2022 Episodic Essential hypertension (20 sources) Essential hypertension; Translations: [Essential (primary) hypertension] Chronic Immunizations and screening for infectious disease (20 sources) Patient encounter status; Translations: [Encounter for screening for COVID-19] Onset: 2 Episodic Malignant neoplasm without specification of site (20 sources) Secondary malignant neoplasm of liver; Translations: [Other malignant neuroendocrine tumors] Onset: 2 Chronic Nutritional deficiencies (1 source) Vitamin D deficiency, unspecified; Translations: [Vitamin D deficiency, unspecified] Onset: 5 Chronic Osteoarthritis (11 sources) Arthritis; Translations: [Unspecified osteoarthritis, unspecified site] 04-01-2021 Chronic Other and ill-defined heart disease (11 sources) Heart disease; Translations: [Heart disease, unspecified] 04-01-2021 Chronic Other and unspecified benign neoplasm (11 sources) Parathyroid adenoma; Translations: [Benign neoplasm of parathyroid gland] 10-15-2020 Episodic Other and unspecified benign neoplasm (20 sources) Other benign neuroendocrine tumors; Translations: [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] Onset: 1 Episodic Other connective tissue disease (11 sources) Pain in lower limb; Translations: [Pain in right leg] 06-24-2021 Episodic Other connective tissue disease (7 sources) Pain in left arm; Translations: [Pain in left arm] 03-09-2022 Episodic Other fractures (4 sources) Closed fracture thoracic vertebra, wedge; Translations: [Wedge compression fracture of T11-T12 vertebra, initial encounter for closed fracture] 07-16-2022 Episodic Other fractures (3 sources) Fracture of seventh thoracic vertebra; Translations: [Wedge compression fracture of T7-T8 vertebra, initial encounter for closed fracture] 04-25-2023 Episodic Other fractures (1 source) Compression fracture of thoracic spine; Translations: [Wedge compression fracture of T11-T12 vertebra, sequela] 04-25-2023 Episodic Other fractures (2 sources) Wedge compression fracture of T7-T8 vertebra, initial encounter for closed fracture; Translations: [Compression fracture of T7 vertebra, initial encounter ([facility])] Onset: 4 Episodic Other gastrointestinal disorders (11 sources) Disorder of colon; Translations: [Disease of intestine, unspecified] 09-17-2020 Episodic Comment on above: Negative colonoscopy and biopsies August 2020 Other gastrointestinal disorders (12 sources) Diarrhea; Translations: [Diarrhea, unspecified] 01-19-2021 Episodic Other lower respiratory disease (12 sources) Dyspnea; Translations: [Shortness of breath] 11-01-2023 Episodic Other lower respiratory disease (2 sources) Dyspnea on exertion; Translations: [Other forms of dyspnea] 09-12-2023 Episodic Other nutritional; endocrine; and metabolic disorders (20 sources) Obese class I; Translations: [Obesity, unspecified] Onset: 4 03-31-2023 Chronic Other skin disorders (1 source) Alopecia; Translations: [Nonscarring hair loss, unspecified] 09-06-2024 Episodic Phlebitis; thrombophlebitis and thromboembolism (20 sources) Deep venous thrombosis; Translations: [Acute embolism and thrombosis of unspecified deep veins of unspecified lower extremity] Onset: 2 06-30-2021 Episodic Comment on above: Acute deep venous th rombosis right tibioperoneal trunk, peroneal, soleus veins. 06/16/21 Pulmonary heart disease (1 source) Secondary pulmonary arterial hypertension; Translations: [Secondary pulmonary arterial hypertension] Onset: 5 Chronic Residual codes; unclassified (11 sources) History of colonoscopy; Translations: [Other specified postprocedural states] 05-23-2018 Episodic Comment on above: 02/22/2018 Residual codes; unclassified (3 sources) Other specified postprocedural states; Translations: [History of lumpectomy] 01-04-2021 Episodic Comment on above: left Secondary malignancies (11 sources) Secondary malignant neoplasm of lung; Translations: [Secondary malignant neoplasm of unspecified lung] 01-19-2021 Chronic Secondary malignancies (11 sources) Secondary malignant neoplasm of bone; Translations: [Secondary malignant neoplasm of bone] 01-19-2021 Chronic Secondary malignancies (11 sources) Regional lymph node metastasis present ; Translations: [Secondary and unspecified malignant neoplasm of lymph node, unspecified] 01-19-2021 Chronic Secondary malignancies (20 sources) Secondary malignant neoplasm of bone; Translations: [Secondary malignant neoplasm of bone and bone marrow] Chronic Secondary malignancies (20 sources) Secondary malignant neoplasm of liver and intrahepatic bile duct; Translations: [Malignant neoplasm of liver, secondary] Chronic Secondary malignancies (20 sources) Secondary malignant neoplasm of unspecified lung; Translations: [Secondary malignant neoplasm of lung] Chronic Secondary malignancies (20 sources) Secondary and unspecified malignant neoplasm of lymph node, unspecified; Translations: [Secondary and unspecified malignant neoplasm of lymph nodes, site unspecified] Chronic Sprains and strains (16 sources) Strain of foot; Translations: [Strain of unspecified muscle and tendon at ankle and foot level, left foot, initial encounter] 05-23-2018 Episodic Thyroid disorders (20 sources) Thyroid nodule; Translations: [Nontoxic single thyroid nodule] Onset: 3 01-04-2023 Chronic Unclassified (1 source) Chronic atrial fibrillation, unspecified; Translations: [Chronic atrial fibrillation (HCC)] Onset: 4 Viral infection (1 source) Varicella-zoster virus infection; Translations: [Zoster without complications] 06-19-2024 Episodic Past or Other Problems Problem Classification Problem Date Documented Da te Episodic/Chronic Complications of surgical procedures or medical care (7 sources) Atrial fibrillation; Translations: [Other postprocedural complications and disorders of the circulatory system, not elsewhere classified] Onset: 02-13-2018 06-21-2022 Episodic Comment on above: post colonoscopy Fever of unknown origin (1 source) Fever, unspecified; Translations: [Fever, unspecified] Onset: 06-17-2024 Episodic Fluid and electrolyte disorders (1 source) Hypokalemia; Translations: [Hypokalemia] Onset: 04-14-2024 Episodic Malaise and fatigue (14 sources) Fatigue; Translations: [Other fatigue] Onset: 06-06-2024 08-28-2020 Episodic Mood disorders (20 sources) Mood disorders Onset: 04-14-2021 Resolved: 12-13-2024 04-14-2021 Other and unspecified benign neoplasm (20 sources) Neuroendocrine tumor; Translations: [Other benign neuroendocrine tumors] Onset: 01-21-2021 03-08-2021 Episodic Other fractures (1 source) Wedge compression fracture of T11-T12 vertebra, sequela; Translations: [Compression fracture of T11 vertebra, sequela] Onset: 04-25-2023 Episodic Other gastrointestinal disorders (20 sources) Diarrhea, unspecified; Translations: [Diarrhea] Onset: 09-06-2024 Episodic Other liver diseases (20 sources) Jaundice; Translations: [Unspecified jaundice] Onset: 08-12-2023 08-11-2023 Episodic Other lower respiratory disease (1 source) Other forms of dyspnea; Translations: [Other forms of dyspnea] Onset: 06-06-2024 Episodic Other skin disorders (2 sources) Nonscarring hair loss, unspecified; Translations: [Nonscarring hair loss, unspecified] Onset: 09-06-2024 Episodic Pathological fracture (3 sources) Pathological fracture; Translations: [Pathological fracture, other site, initial encounter for fracture] Onset: 04-25-2023 04-25-2023 Episodic Spondylosis; intervertebral disc disorders; other back problems (14 sources) Backache; Translations: [Dorsalgia, unspecified] Onset: 04-25-2023 07-16-2022 Episodic Unclassified (1 source) Onset: 02-18-2022 02-18-2022 Unclassified (2 sources) Neuroendocrine carcinoma metastatic to liver 06-07-2024 Unclassified (6 sources) Neuroendocrine tumor 06-14-2024 Unclassified (4 sources) Neuroendocrine cancer 06-14-2024 Results Test Name Value Interpretation Reference Range Facility NUC LARRY-177 DOTATATE THERAPYo n 12-13-2024 NUC LARRY-177 DOTATATE THERAPY EXAM: NUC LARRY-177 DOTATATE THERAPY, 12/13/2024 14:39 PM CLINICAL INDICATIONS: 84-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 This radiopharmaceutical administration is for treatment of somatostatin receptor positive malignant/metastatic disease. COMPARISON: No prior studies available for comparison. TECHNIQUE: The patient's recent labs were evaluated by the clinical team. Recent imaging studies were reviewed. After all the patient's questions were answered, written informed consent was obtained from the patient. 103.2 mCi of Larry-177 Dotatate (LutaThera) was injected intravenously for treatment of neuroendocrine malignancy using the syringe pump at 70 ml/hr. Infusion occurred over 21 minutes through the patient's left arm IV. Radiopharmaceutical was administered under the supervision of Dr. Pino. No immediate complications were noted. This is the patient's third administration of LutaThera. 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 This radiopharmaceutical administration is for treatment of somatostatin receptor positive malignant/metastatic disease. COMPARISON: No prior studies available for comparison. TECHNIQUE: The patient's recent labs were evaluated by the clinical team. Recent imaging studies were reviewed. After all the patient's questions were answered, written informed consent was obtained from the patient. 103.2 mCi of Larry-177 Dotatate (LutaThera) was injected intravenously for treatment of neuroendocrine malignancy using the syringe pump at 70 ml/hr. Infusion occurred over 21 minutes through the patient's left arm IV. Radiopharmaceutical was administered under the supervision of Dr. Pino. No immediate complications were noted. This is the patient's third administration of LutaThera. 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 This radiopharmaceutical administration is for treatment of somatostatin receptor positive malignant/metastatic disease. COMPARISON: No prior studies available for comparison. TECHNIQUE: The patient's recent labs were evaluated by the clinical team. Recent imaging studies were reviewed. After all the patient's questions were answered, written informed consent was obtained from the patient. 103.2 mCi of Larry-177 Dotatate (LutaThera) was injected intravenously for treatment of neuroendocrine malignancy using the syringe pump at 70 ml/hr. Infusion occurred over 21 minutes through the patient's left arm IV. Radiopharmaceutical was administered under the supervision of Dr. Pino. No immediate complications were noted. This is the patient's third administration of LutaThera. IMPRESSION FINDINGS/IMPRESSION: Uneventful administration of Luttetium -177 Dotatate therapy [facility] Radiology Study observation (narrative) [facility] NUC LARRY-177 DOTATATE THERAPYO rdered By: Lita Pino on 12-13-2024 [facility] Work Phone: CBC W/Diff, Automatedon 10-0 Absolute Lymph 1.01 X10 3/uL Normal 0.83-4.51 [facility] Comment on above: Performed By: #### L 100.0100, L3100.4810, L500.4050, L504.2610, [id number] #### [facility] [address] [place], [place], [id number] Absolute Neut 2.1 X10 3/uL Normal 2.0-7.7 [facility] Comment on above: Performed By: #### L 100.0100, L3100.4810, L500.4050, L504.2610, [id number] #### [facility] [address] [place], [address] Basophils/100 WBC (Bld) 0.8 % Normal 0-1 [facility] Comment on above: Performed By: #### L 100.0100, L3100.4810, L500.4050, L504.2610, [id number] #### [facility] [address] [place], [address] Eosinophils/100 WBC (Bld) 2.3 % Normal 0-5 [facility] Comment on above: Performed By: #### L 100.0100, L3100.4810, L500.4050, L504.2610, [id number] #### [facility] [address] [place], [address] Erythrocyte distribution width (RBC) [Ratio] 15.1 % High 11.6-14.6 [facility] Comment on above: Performed By: #### L 100.0100, L3100.4810, L500.4050, L504.2610, [id number] #### [facility] [address] [place], [address] Hematocrit (Bld) [Volume fraction] 29.1 % Low 37-47 [facility] Comment on above: Performed By: #### L 100.0100, L3100.4810, L500.4050, L504.2610, [id number] #### [facility] [address] [place], [address] Hemoglobin (Bld) [Mass/Vol] 10.1 g/dL Low 12.0-15.0 [facility] Comment on above: Performed By: #### L 100.0100, L3100.4810, L500.4050, L504.2610, [id number] #### [facility] [address] [place], [address] IG% 0.300 Normal 0.0-0.9 [facility] Comment on above: Result Comment: IG% - Immature Granulocytes (promyelocytes, myelocytes and metamyelocytes) > 1% indicates that a LEFT SHIFT is Present. Performed By: #### L 100.0100, L3100.4810, L500.4050, L504.2610, [id number] #### [facility] [address] [place], [address] Lymphocytes/100 WBC (Bld) 26.0 % Normal 19-41 [facility] Comment on above: Performed By: #### L 100.0100, L3100.4810, L500.4050, L504.2610, [id number] #### [facility] [address] [place], [address] MCH (RBC) [Entitic mass] 31.7 pg Normal 27.0-32.0 [facility] Comment on above: Performed By: #### L 100.0100, L3100.4810, L500.4050, L504.2610, [id number] #### [facility] [address] [place], [address] MCHC (RBC) [Mass/Vol] 34.7 g/dL Normal 32-36 [facility] Comment on above: Performed By: #### L 100.0100, L3100.4810, L500.4050, L504.2610, [id number] #### [facility] [address] [place], [address] MCV (RBC) [Entitic vol] 91.2 fL Normal 81-99 [facility] Comment on above: Performed By: #### L 100.0100, L3100.4810, L500.4050, L504.2610, [id number] #### [facility] [address] [place], [address] Monocytes/100 WBC (Bld) 16.5 % High 0-10 [facility] Comment on above: Performed By: #### L 100.0100, L3100.4810, L500.4050, L504.2610, [id number] #### [facility] [address] [place], [address] Neutrophils/100 WBC (Bld) 54.1 % Normal 47-70 [facility] Comment on above: Performed By: #### L 100.0100, L3100.4810, L500.4050, L504.2610, [id number] #### [facility] [address] [place], [address] Nucleated RBC (Bld) [#/Vol] 0 10*3/uL Normal 0-5 [facility] Comment on above: Performed By: #### L 100.0100, L3100.4810, L500.4050, L504.2610, [id number] #### [facility] [address] [place], [address] Platelet mean volume (Bld) [Entitic vol] 10.2 fL Normal 6.2-12.0 [facility] Comment on above: Performed By: #### L 100.0100, L3100.4810, L500.4050, L504.2610, [id number] #### [facility] [address] [place], [address] Platelets (Bld) [#/Vol] 112 10*3/uL Low 150-450 [facility] Comment on above: Performed By: #### L 100.0100, L3100.4810, L500.4050, L504.2610, [id number] #### [facility] [address] [place], [address] RBC (Bld) [#/Vol] 3.19 10*6/uL Low 4.2-5.4 [facility] Comment on above: Performed By: #### L 100.0100, L3100.4810, L500.4050, L504.2610, [id number] #### [facility] [address] [place], [address] RDW SD 49.3 fl High 35.1-43.9 [facility] Comment on above: Performed By: #### L 100.0100, L3100.4810, L500.4050, L504.2610, [id number] #### [facility] [address] [place], [address] WBC (Bld) [#/Vol] 3.9 10*3/uL Low 4.4-11.0 [facility] Comment on above: Performed By: #### L 100.0100, L3100.4810, L500.4050, L504.2610, [id number] #### [facility] [address] [place], [address] CBC W/Diff, Automatedon 09- PLT EST MOD DEC Normal ADEQ [facility] Comment on above: Performed By: #### L 100.0100, L3100.4810, L500.4050, L504.2610, [id number] #### [facility] [address] [place], [address] SMEAR COMMENT SCANNED Normal [facility] Comment on above: Performed By: #### L 100.0100, L3100.4810, L500.4050, L504.2610, [id number] #### [facility] [address] [place], [address] Comprehensive Metabolic Prof ilon 11-12-2024 Albumin [Mass/Vol] 4.2 g/dL Normal 3.4-4.8 [facility] Comment on above: Order Comment: STA T FAX RESULTS TO [phone] DR. ALINA DAVILA Performed By: #### L 100.0100, L3100.4810, L500.4050, L504.2610, L3300.1800 #### [facility] [address] [place], [address] Albumin/Globulin [Mass ratio] 1.6 {ratio} Normal 0.9-2.4 [facility] Comment on above: Order Comment: STA T FAX RESULTS TO [phone] DR. ALINA DAVILA Performed By: #### L 100.0100, L3100.4810, L500.4050, L504.2610, L3300.1800 #### [facility] [address] [place], [address] ALK PHOS 137 U/L High 35-104 [facility] Comment on above: Order Comment: STA T FAX RESULTS TO [phone] DR. ALINA DAVILA Performed By: #### L 100.0100, L3100.4810, L500.4050, L504.2610, L3300.1800 #### [facility] [address] [place], [address] ALT [Catalytic activity/Vol] 12 U/L Normal <=34 [facility] Comment on above: Order Comment: STA T FAX RESULTS TO [phone] DR. ALINA DAVILA Performed By: #### L 100.0100, L3100.4810, L500.4050, L504.2610, L3300.1800 #### [facility] [address] [place], [address] AST [Catalytic activity/Vol] 23 U/L Normal <=31 [facility] Comment on above: Order Comment: STA T FAX RESULTS TO [phone] DR. ALINA DAVILA Performed By: #### L 100.0100, L3100.4810, L500.4050, L504.2610, L3300.1800 #### [facility] [address] [place], [address] Bilirubin [Mass/Vol] 0.48 mg/dL Normal 0.00-1.30 [facility] Comment on above: Order Comment: STA T FAX RESULTS TO [phone] DR. ALINA DAVILA Performed By: #### L 100.0100, L3100.4810, L500.4050, L504.2610, L3300.1800 #### [facility] [address] [place], [address] BUN/CRE 17.9 RATIO Normal 10-20 [facility] Comment on above: Order Comment: STA T FAX RESULTS TO [phone] DR. ALINA DAVILA Performed By: #### L 100.0100, L3100.4810, L500.4050, L504.2610, L3300.1800 #### [facility] [address] [place], [address] Calcium [Mass/Vol] 9.4 mg/dL Normal 7.6-11.0 [facility] Comment on above: Order Comment: STA T FAX RESULTS TO [phone] DR. ALINA DAVILA Performed By: #### L 100.0100, L3100.4810, L500.4050, L504.2610, L3300.1800 #### [facility] [address] [place], [address] Chloride [Moles/Vol] 99 mmol/L Normal 98-108 [facility] Comment on above: Order Comment: STA T FAX RESULTS TO [phone] DR. ALINA DAVILA Performed By: #### L 100.0100, L3100.4810, L500.4050, L504.2610, L3300.1800 #### [facility] [address] [place], [address] CO2 [Moles/Vol] 25.0 mmol/L Normal 21.0-32.0 [facility] Comment on above: Order Comment: STA T FAX RESULTS TO [phone] DR. ALINA DAVILA Performed By: #### L 100.0100, L3100.4810, L500.4050, L504.2610, L3300.1800 #### [facility] [address] [place], [address] Creatinine [Mass/Vol] 0.85 mg/dL Normal 0.70-1.20 [facility] Comment on above: Order Comment: STA T FAX RESULTS TO [phone] DR. ALINA DAVILA Performed By: #### L 100.0100, L3100.4810, L500.4050, L504.2610, L3300.1800 #### [facility] [address] [place], [address] GAP 12 Normal 5-15 [facility] Comment on above: Order Comment: STA T FAX RESULTS TO [phone] DR. ALINA DAVILA Performed By: #### L 100.0100, L3100.4810, L500.4050, L504.2610, L3300.1800 #### [facility] [address] [place], [address] GFR/1.73 sq M.predicted among non-blacks MDRD (S/P/Bld) [Vol rate/Area] 69 mL/min/{1.73_m2} Normal >60 [facility] Comment on above: Order Comment: STA T FAX RESULTS TO [phone] DR. ALINA DAVILA Result Comment: mL/m in/1.73m2 CKD-EPI Creatinine Equation (2020) Performed By: #### L 100.0100, L3100.4810, L500.4050, L504.2610, L3300.1800 #### [facility] [address] [place], [address] Globulin (S) [Mass/Vol] 2.7 g/dL Normal 2.2-4.2 [facility] Comment on above: Order Comment: STA T FAX RESULTS TO [phone] DR. ALINA DAVILA Performed By: #### L 100.0100, L3100.4810, L500.4050, L504.2610, L3300.1800 #### [facility] [address] [place], [address] Glucose [Mass/Vol] 123 mg/dL High 70-99 [facility] Comment on above: Order Comment: STA T FAX RESULTS TO [phone] DR. ALINA DAVILA Performed By: #### L 100.0100, L3100.4810, L500.4050, L504.2610, L3300.1800 #### [facility] [address] [place], [address] Potassium [Moles/Vol] 3.7 mmol/L Normal 3.3-5.1 [facility] Comment on above: Order Comment: STA T FAX RESULTS TO [phone] DR. ALINA DAVILA Performed By: #### L 100.0100, L3100.4810, L500.4050, L504.2610, L3300.1800 #### [facility] [address] [place], [address] Sodium [Moles/Vol] 136 mmol/L Normal 133-145 [facility] Comment on above: Order Comment: STA T FAX RESULTS TO [phone] DR. ALINA DAVILA Performed By: #### L 100.0100, L3100.4810, L500.4050, L504.2610, L3300.1800 #### [facility] [address] [place], [address] T PROT 6.8 g/dL Normal 5.9-8.4 [facility] Comment on above: Order Comment: STA T FAX RESULTS TO [phone] DR. ALINA DAVILA Performed By: #### L 100.0100, L3100.4810, L500.4050, L504.2610, L3300.1800 #### [facility] [address] [place], [place], [address] Urea nitrogen [Mass/Vol] 15 mg/dL Normal 4-19 [facility] Comment on above: Order Comment: STA T FAX RESULTS TO [phone] DR. ALINA DAVILA Performed By: #### L 100.0100, L3100.4810, L500.4050, L504.2610, L3300.1800 #### [facility] [address] [place], [address] CBC AND ELECTRONIC DIFFon Basophils (Bld) [#/Vol] K/uL 0.00 - 0.15 K/uL [facility] Basophils/100 WBC (Bld) 0.5 % [facility] Differential cell count method Nom (Bld) Electronic Differential [facility] Eosinophils (Bld) [#/Vol] 0.07 10*3/uL 0.00 - 0.42 K/uL [facility] Eosinophils/100 WBC (Bld) 1.8 % [facility] Erythrocyte distribution width (RBC) [Ratio] 14.7 % 10.8 - 14.9 % [facility] Hematocrit (Bld) [Volume fraction] 31.0 % Low 34.9 - 44.3 % [facility] Hemoglobin (Bld) [Mass/Vol] 10.8 g/dL Low 11.4 - 15.2 g/dL [facility] Immature granulocytes (Bld) [#/Vol] K/uL NINF - 0.08 K/uL [facility] Immature granulocytes/100 WBC (Bld) 0.0 % [facility] Interpretation and review of laboratory results Abnormal [facility] Lymphocytes (Bld) [#/Vol] 0.72 10*3/uL Low 1.16 - 3.51 K/uL [facility] Lymphocytes/100 WBC (Bld) 18.2 % [facility] MCH (RBC) [Entitic mass] 31.4 pg 25.9 - 33.9 pg [facility] MCHC (RBC) [Mass/Vol] 34.8 g/dL 31.4 - 35.9 g/dL [facility] MCV (RBC) [Entitic vol] 90.1 fL 79.6 - 97.7 fL [facility] Monocytes (Bld) [#/Vol] 0.47 10*3/uL 0.22 - 0.87 K/uL [facility] Monocytes/100 WBC (Bld) 11.9 % [facility] Neutrophils (Bld) [#/Vol] 2.67 10*3/uL 1.64 - 7.28 K/uL [facility] Nucleated RBC/100 WBC (Bld) [Ratio] 0.0 % [facility] Platelet mean volume (Bld) [Entitic vol] 9.1 fL 8.5 - 12.2 fL [facility] Platelets (Bld) [#/Vol] 95 10*3/uL Low 150 - 393 K/uL [facility] Comment on above: Automated platelet c ount confirmed by manual slide review. RBC (Bld) [#/Vol] 3.44 10*6/uL Low [facility] Segmented neutrophils/100 WBC (Bld) 67.6 % [facility] WBC (Bld) [#/Vol] 3.95 10*3/uL Low 3.99 - 11.19 K/uL [facility] Abs Baso Auto < Normal 0.00-0.15 [facility] Comment on above: Performed By: #### L [id number] #### [facility] (DEFAULT) [address] [place] [address] Basophils/100 WBC (Bld) 0.5 % Normal [facility] Comment on above: Performed By: #### L [id number] #### [facility] (DEFAULT) [address] [address] DIFF STATUS Electronic Differential Normal [facility] Comment on above: Performed By: #### L [id number] #### [facility] (DEFAULT) [address] [address] Eosinophils (Bld) [#/Vol] 0.07 10*3/uL Normal 0.00-0.42 [facility] Comment on above: Performed By: #### L [id number] #### [facility] (DEFAULT) [address] [address] Eosinophils/100 WBC (Bld) 1.8 % Normal [facility] Comment on above: Performed By: #### L [id number] #### [facility] (DEFAULT) [address] [address] Hematocrit (Bld) [Volume fraction] 31.0 % Low 34.9-44.3 [facility] Comment on above: Performed By: #### L [id number] #### [facility] (DEFAULT) [address] [address] Hemoglobin (Bld) [Mass/Vol] 10.8 g/dL Low 11.4-15.2 [facility] Comment on above: Performed By: #### L [id number] #### [facility] (DEFAULT) [address] [address] Immature Grans % 0.0 % Normal [facility] Comment on above: Performed By: #### L [id number] #### [facility] (DEFAULT) [address] [address] Immature Grans Absolute < Normal <=0.08 [facility] Comment on above: Performed By: #### L [id number] #### [facility] (DEFAULT) [address] [address] Lymphocytes (Bld) [#/Vol] 0.72 10*3/uL Low 1.16-3.51 [facility] Comment on above: Performed By: #### L [id number] #### [facility] (DEFAULT) [address] [address] Lymphocytes/100 WBC (Bld) 18.2 % Normal [facility] Comment on above: Performed By: #### L [id number] #### [facility] (DEFAULT) [address] [address] MCV (RBC) [Entitic vol] 90.1 fL Normal 79.6-97.7 [facility] Comment on above: Performed By: #### L [id number] #### [facility] (DEFAULT) [address] [address] Mean Cell Hgb 31.4 pg Normal 25.9-33.9 [facility] Comment on above: Performed By: #### L [id number] #### [facility] (DEFAULT) [address] [address] Mean Cell Hgb Conc 34.8 g/dL Normal 31.4-35.9 [facility] Comment on above: Performed By: #### L [id number] #### [facility] (DEFAULT) [address] [address] Monocytes (Bld) [#/Vol] 0.47 10*3/uL Normal 0.22-0.87 [facility] Comment on above: Performed By: #### L [id number] #### [facility] (DEFAULT) [address] [address] Monocytes/100 WBC (Bld) 11.9 % Normal [facility] Comment on above: Performed By: #### L [id number] #### [facility] (DEFAULT) [address] [address] Nucleated RBC 0.0 /100 WBC Normal <=0.2 [facility] Comment on above: Performed By: #### L [id number] #### [facility] (DEFAULT) [address] [place] [address] Platelet mean volume (Bld) [Entitic vol] 9.1 fL Normal 8.5-12.2 [facility] Comment on above: Performed By: #### L [id number] #### [facility] (DEFAULT) [address] [place] [address] Platelets (Bld) [#/Vol] 95 10*3/uL Low 150-393 [facility] Comment on above: Result Comment: Auto mated platelet count confirmed by manual slide review. Performed By: #### L [id number] #### [facility] (DEFAULT) [address] [place] [address] RBC (Bld) [#/Vol] 3.44 10*6/uL Low 3.91-5.04 [facility] Comment on above: Performed By: #### L [id number] #### [facility] (DEFAULT) [address] [place] [address] RBC Distribution 14.7 % Normal 10.8-14.9 [facility] Comment on above: Performed By: #### L [id number] #### [facility] (DEFAULT) [address] [address] Segs + Bands Auto 67.6 % Normal [facility] Comment on above: Performed By: #### L [id number] #### [facility] (DEFAULT) [address] [place] [address] Segs + Bands,Absolute Auto 2.67 K/uL Normal 1.64-7.28 [facility] Comment on above: Performed By: #### L [id number] #### [facility] (DEFAULT) [address] [place] [address] WBC (Bld) [#/Vol] 3.95 10*3/uL Low 3.99-11.19 [facility] Comment on above: Performed By: #### L [id number] #### [facility] (DEFAULT) [address] [place] [address] CHROMOGRANIN Aon 09-26-2025 Chromogranin A 423 ng/mL High <93 [facility] Comment on above: Result Comment: Impa ired renal or hepatic function or treatment with proton pump inhibitors may result in artifactual elevations of Chromogranin A. ADDITIONAL INFORMATION The testing method is a homogeneous time-resolved immunofluorescent assay manufactured by [employer] and performed on the [employer] Krypt[employer] Compact Plus. Values obtained with different assay [...] examination and other findings. Test Performed by: [place] [address] Fabrication Welder: Lizzy Ring Ph.D.; CLIA# [id number] Performed By: #### [facility] #### [facility] (DEFAULT) [address] [place] [address] COMPREHENSIVE METABOLIC PANE [facility] 11-08-2024 Albumin [Mass/Vol] 4.4 g/dL 3.5 - 5.0 g/dL [facility] ALP [Catalytic activity/Vol] 136 U/L High 32 - 126 U/L [facility] ALT [Catalytic activity/Vol] 12 U/L 9 - 48 U/L [facility] Anion gap [Moles/Vol] 11 mmol/L 7 - 17 mmol/L [facility] AST [Catalytic activity/Vol] 19 U/L 10 - 39 U/L [facility] Bilirubin [Mass/Vol] 0.7 mg/dL NINF - 1.5 mg/dL [facility] Calcium [Mass/Vol] 9.8 mg/dL 8.6 - 10. 5 mg/dL [facility] Chloride [Moles/Vol] 98 mmol/L 98 - 10 8 mmol/L [facility] CO2 [Moles/Vol] 29 mmol/L 21 - 31 mmol/L [facility] Creatinine [Mass/Vol] 1.05 mg/dL 0.50 - 1.20 mg/dL [facility] eGFR, CKD-EPI, Female 54 Low - PINF [facility] Comment on above: Reported eGFR is bas ed on the CKD-EPI 2020 equation using creatinine, age, and sex. Glucose [Mass/Vol] 100 mg/dL 70 - 179 mg/dL [facility] Interpretation and review of laboratory results Abnormal [facility] Osmolality Calc [Osmolality] 285 [facility] Potassium [Moles/Vol] 3.4 mmol/L Low 3.5 - 5.0 mmol/L [facility] Protein [Mass/Vol] 7.5 g/dL 6.4 - 8.3 g/dL [facility] Sodium [Moles/Vol] 135 mmol/L 135 - 145 mmol/L [facility] Urea nitrogen [Mass/Vol] 19 mg/dL 7 - 25 mg/dL [facility] Urea nitrogen/Creatinine [Mass ratio] 18 mg/mg [facility] Albumin [Mass/Vol] 4.4 g/dL Normal 3.5-5.0 [facility] Comment on above: Performed By: #### L [id number] #### [facility] (DEFAULT) [address] [place] [address] ALP [Catalytic activity/Vol] 136 U/L High 32-126 [facility] Comment on above: Performed By: #### L [id number] #### [facility] (DEFAULT) [address] [place] [address] ALT [Catalytic activity/Vol] 12 U/L Normal 9-48 [facility] Comment on above: Performed By: #### L [id number] #### [facility] (DEFAULT) [address] [place] [address] Anion gap [Moles/Vol] 11 mmol/L Normal 7-17 [facility] Comment on above: Performed By: #### L AB980 #### [facility] (DEFAULT) [address] [place] [address] AST [Catalytic activity/Vol] 19 U/L Normal 10-39 [facility] Comment on above: Performed By: #### L [id number] #### [facility] (DEFAULT) [address] [place] [address] Bilirubin [Mass/Vol] 0.7 mg/dL Normal <1.5 [facility] Comment on above: Performed By: #### L [id number] #### [facility] (DEFAULT) [address] [place] [address] Calcium [Mass/Vol] 9.8 mg/dL Normal 8.6-10.5 [facility] Comment on above: Performed By: #### L AB980 #### [facility] (DEFAULT) [address] [place] [address] Chloride [Moles/Vol] 98 mmol/L Normal 98-108 [facility] Comment on above: Performed By: #### L AB980 #### [facility] (DEFAULT) [address] [place] [address] CO2 [Moles/Vol] 29 mmol/L Normal 21-31 [facility] Comment on above: Performed By: #### L AB980 #### [facility] (DEFAULT) [address] [place] [address] Creatinine [Mass/Vol] 1.05 mg/dL Normal 0.50-1.20 [facility] Comment on above: Performed By: #### L AB980 #### [facility] (DEFAULT) [address] [place] [address] GFR/1.73 sq M.predicted among non-blacks MDRD (S/P/Bld) [Vol rate/Area] 53 mL/min/{1.73_m2} Low >=60 [facility] Comment on above: Result Comment: Repo rted eGFR is based on the CKD-EPI 2020 equation using creatinine, age, and sex. Performed By: #### L AB980 #### [facility] (DEFAULT) [address] [place] [address] Glucose [Mass/Vol] 100 mg/dL Normal Nonfastin -179 mg/dL; Fastin-99 [facility] Comment on above: Performed By: #### L AB980 #### [facility] (DEFAULT) [address] [place] [address] Osmolality [Osmolality] 285 mosm/kg Normal 278-305 [facility] Comment on above: Performed By: #### L [id number] #### [facility] (DEFAULT) [address] [place] [address] Potassium [Moles/Vol] 3.4 mmol/L Low 3.5-5.0 [facility] Comment on above: Performed By: #### L AB980 #### [facility] (DEFAULT) [address] [place] [address] Protein [Mass/Vol] 7.5 g/dL Normal 6.4-8.3 [facility] Comment on above: Performed By: #### L [id number] #### [facility] (DEFAULT) [address] [place] [address] Sodium [Moles/Vol] 135 mmol/L Normal 135-145 [facility] Comment on above: Performed By: #### L [id number] #### [facility] (DEFAULT) [address] [place] [address] Urea nitrogen [Mass/Vol] 19 mg/dL Normal 7-25 [facility] Comment on above: Performed By: #### L [id number] #### [facility] (DEFAULT) [address] [place] [address] Urea nitrogen/Creatinine [Mass ratio] 18 mg/mg Normal [facility] Comment on above: Performed By: #### L AB980 #### [facility] (DEFAULT) [address] [place] [address] GASTRIN - NON-STIMULATEDon 0 11-08-2024 Gastrin 1611 pg/mL High [facility] Comment on above: Result Comment: REFERENCE VALUE <100 Reference ranges valid for >= 8 hour fast. Test Performed by: [facility] [address] [place] [address] Fabrication Welder: Lizzy Ring Ph.D.; CLIA# [id number] Performed By: #### L [id number] #### [facility] (DEFAULT) [address] [place] [address] LACTATE DEHYDROGENASEon 10-15 Interpretation and review of laboratory results Normal [facility] LDH Lactate to pyruvate reaction [Catalytic activity/Vol] 139 U/L 100 - 190 U/L [facility] LD Total 139 U/L Normal 100-190 [facility] Comment on above: Performed By: #### L [id number] #### [facility] (DEFAULT) [address] [place] [address] No Panel Informationon 11-08 [facility] NUC LARRY-177 DOTATATE THERAPYo n 09-20-2024 NUC LARRY-177 DOTATATE THERAPY EXAM: NUC LARRY-177 DOTATATE THERAPY, 09/20/2024 11:43 AM CLINICAL INDICATIONS: 83-year-old female [...] dose syringe and microbore tubing by the test engineer nuclear equipment. The test engineer nuclear equipment then slowly administered this saline flush via [...] treatment of somatostatin receptor positive malignant/metastatic disease. Normal [facility] IMPRESSION: Intraven ous administration of Lutathera (Lutetium-177 DOTATATE) for treatment of somatostatin receptor positive malignant/metastatic disease. OLOGY EXAM: NUC LARRY-177 DOT ATATE THERAPY, 09/20/2024 11:43 AM CLINICAL INDICATIONS: 83-year-old female [...] dose syringe and microbore tubing by the test engineer nuclear equipment. The test engineer nuclear equipment then slowly administered this saline flush via the patients left arm IV over 1-2 minutes. No immediate complications were noted by the patient, nuclear medicine technologists, or Authorized User. This is the patient's second administration of Lutathera. Lutathera was administered under the supervision of Dr. Lara (Nuclear Medicine attending and Authorized User.) RADIOLOGY Jane, Dino Archer MD - 09/20/2024 EXAM: NUC LARRY-177 DOTATATE THERAPY, 09/20/2024 11:43 AM CLINICAL INDICATIONS: 83-year-old female [...] dose syringe and microbore tubing by the test engineer nuclear equipment. The test engineer nuclear equipment then slowly administered this saline flush via the patients left arm IV over 1-2 minutes. No immediate complications were noted by the patient, nuclear medicine technologists, or Authorized User. This is the patient's second administration of Lutathera. Lutathera was administered under the supervision of Dr. Lara (Nuclear Medicine attending and Authorized User.) IMPRESSION IMPRESSION: Intravenous administration of Lutathera (Lutetium-177 DOTATATE) for treatment of somatostatin receptor positive malignant/metastatic disease. [facility] Radiology Study observation (narrative) [facility] NUC LARRY-177 DOTATATE THERAPYO rdered By: Andres Lara on 09-20-2024 [facility] Work Phone: Laboratory - Chemistry and C hemistry - challengeon 09-18-2024 Natriuretic peptide.B prohormone N-Terminal IA [Mass/Vol] 164 pg/mL NINF - 540 pg/mL [facility] NT-PRO B-TYPE NATRIURETIC PE PTIDEon 09-18-2024 Natriuretic peptide B (Bld) [Mass/Vol] 164 pg/mL Normal <=540 [facility] Comment on above: Performed By: #### L [id number] #### [facility] (DEFAULT) [address] [place] [address] No Panel Informationon 09-18 Interpretation and review of laboratory results Normal [facility] CBC AND ELECTRONIC DIFFon Basophils (Bld) [#/Vol] K/uL 0.00 - 0.15 K/uL [facility] Basophils/100 WBC (Bld) 0.7 % [facility] Differential cell count method Nom (Bld) Electronic Differential [facility] Eosinophils (Bld) [#/Vol] 0.09 10*3/uL 0.00 - 0.42 K/uL [facility] Eosinophils/100 WBC (Bld) 2.1 % [facility] [facility] Erythrocyte distribution width (RBC) [Ratio] 15.9 % High 10.8 - 14.9 % [facility] Hematocrit (Bld) [Volume fraction] 33.7 % Low 34.9 - 44.3 % [facility] Hemoglobin (Bld) [Mass/Vol] 11.4 g/dL 11.4 - 15.2 g/dL [facility] Immature granulocytes (Bld) [#/Vol] K/uL NINF - 0.08 K/uL [facility] Immature granulocytes/100 WBC (Bld) 0.5 % [facility] Interpretation and review of laboratory results Abnormal [facility] Lymphocytes (Bld) [#/Vol] 0.9 10*3/uL Low 1.16 - 3.51 K/uL [facility] Lymphocytes/100 WBC (Bld) 20.6 % [facility] MCH (RBC) [Entitic mass] 29.7 pg 25.9 - 33.9 pg [facility] MCHC (RBC) [Mass/Vol] 33.8 g/dL 31.4 - 35.9 g/dL [facility] MCV (RBC) [Entitic vol] 87.8 fL 79.6 - 97.7 fL [facility] Comment on above: Results inconsistent with previous results Monocytes (Bld) [#/Vol] 0.46 10*3/uL 0.22 - 0.87 K/uL [facility] Monocytes/100 WBC (Bld) 10.6 % [facility] Neutrophils (Bld) [#/Vol] 2.86 10*3/uL 1.64 - 7.28 K/uL [facility] Nucleated RBC/100 WBC (Bld) [Ratio] 0 % NINF [facility] Platelet mean volume (Bld) [Entitic vol] 9.4 fL 8.5 - 12.2 fL [facility] Platelets (Bld) [#/Vol] 154 10*3/uL 150 - 393 K/uL [facility] Comment on above: Results inconsistent with previous results. RBC (Bld) [#/Vol] 3.84 10*6/uL Low [facility] Segmented neutrophils/100 WBC (Bld) 65.5 % [facility] WBC (Bld) [#/Vol] 4.36 10*3/uL 3.99 - 11.19 K/uL [facility] Abs Baso Auto < Normal 0.00-0.15 [facility] Comment on above: Performed By: #### L [id number] #### [facility] (DEFAULT) [address] [address] Basophils/100 WBC (Bld) 0.7 % Normal [facility] Comment on above: Performed By: #### L [id number] #### [facility] (DEFAULT) [address] [address] DIFF STATUS Electronic Differential Normal [facility] Comment on above: Performed By: #### L [id number] #### [facility] (DEFAULT) [address] [address] Eosinophils (Bld) [#/Vol] 0.09 10*3/uL Normal 0.00-0.42 [facility] Comment on above: Performed By: #### L [id number] #### [facility] (DEFAULT) [address] [address] Eosinophils/100 WBC (Bld) 2.1 % Normal [facility] Comment on above: Performed By: #### L [id number] #### [facility] (DEFAULT) [address] [address] Hematocrit (Bld) [Volume fraction] 33.7 % Low 34.9-44.3 [facility] Comment on above: Performed By: #### L [id number] #### [facility] (DEFAULT) [address] [address] Hemoglobin (Bld) [Mass/Vol] 11.4 g/dL Normal 11.4-15.2 [facility] Comment on above: Performed By: #### L [id number] #### [facility] (DEFAULT) [address] [address] Immature Grans % 0.5 % Normal [facility] Comment on above: Performed By: #### L [id number] #### [facility] (DEFAULT) [address] [address] Immature Grans Absolute < Normal <=0.08 [facility] Comment on above: Performed By: #### L [id number] #### [facility] (DEFAULT) [address] [address] Lymphocytes (Bld) [#/Vol] 0.90 10*3/uL Low 1.16-3.51 [facility] Comment on above: Performed By: #### L [id number] #### [facility] (DEFAULT) [address] [address] Lymphocytes/100 WBC (Bld) 20.6 % Normal [facility] Comment on above: Performed By: #### L [id number] #### [facility] (DEFAULT) [address] [address] MCV (RBC) [Entitic vol] 87.8 fL Normal 79.6-97.7 [facility] Comment on above: Result Comment: Resu lts inconsistent with previous results Performed By: #### L [id number] #### [facility] (DEFAULT) [address] [address] Mean Cell Hgb 29.7 pg Normal 25.9-33.9 [facility] Comment on above: Performed By: #### L [id number] #### [facility] (DEFAULT) [address] [place] [address] Mean Cell Hgb Conc 33.8 g/dL Normal 31.4-35.9 [facility] Comment on above: Performed By: #### L [id number] #### [facility] (DEFAULT) [address] [place] [address] Monocytes (Bld) [#/Vol] 0.46 10*3/uL Normal 0.22-0.87 [facility] Comment on above: Performed By: #### L [id number] #### [facility] (DEFAULT) [address] [address] Monocytes/100 WBC (Bld) 10.6 % Normal [facility] Comment on above: Performed By: #### L [id number] #### [facility] (DEFAULT) [address] [place] [address] Nucleated RBC 0.0 /100 WBC Normal <=0.2 [facility] Comment on above: Performed By: #### L [id number] #### [facility] (DEFAULT) [address] [place] [address] Platelet mean volume (Bld) [Entitic vol] 9.4 fL Normal 8.5-12.2 [facility] Comment on above: Performed By: #### L [id number] #### [facility] (DEFAULT) [address] [address] Platelets (Bld) [#/Vol] 154 10*3/uL Normal 150-393 [facility] Comment on above: Result Comment: Resu lts inconsistent with previous results. Performed By: #### L [id number] #### [facility] (DEFAULT) [address] [address] RBC (Bld) [#/Vol] 3.84 10*6/uL Low 3.91-5.04 [facility] Comment on above: Performed By: #### L [id number] #### [facility] (DEFAULT) [address] [place] [address] RBC Distribution 15.9 % High 10.8-14.9 [facility] Comment on above: Performed By: #### L [id number] #### [facility] (DEFAULT) [address] [place] [address] Segs + Bands Auto 65.5 % Normal [facility] Comment on above: Performed By: #### L [id number] #### [facility] (DEFAULT) [address] [place] [address] Segs + Bands,Absolute Auto 2.86 K/uL Normal 1.64-7.28 [facility] Comment on above: Performed By: #### L [id number] #### [facility] (DEFAULT) [address] [address] WBC (Bld) [#/Vol] 4.36 10*3/uL Normal 3.99-11.19 [facility] Comment on above: Performed By: #### L [id number] #### [facility] (DEFAULT) [address] [address] CHROMOGRANIN Aon 09-06-2024 Chromogranin A 492 ng/mL High <93 [facility] Comment on above: Result Comment: Impa ired renal or hepatic function or treatment with proton pump inhibitors may result in artifactual elevations of Chromogranin A. ADDITIONAL INFORMATION The testing method is a homogeneous time-resolved immunofluorescent assay manufactured by [employer] and performed on the [employer] Kryptor Compact Plus. Values obtained with different assay [...] other findings. Test Performed by: [facility] [address] [place] [address] Fabrication Welder: Lizzy Ring Ph.D.; CLIA# [id number] Performed By: #### Y CHGRA #### [facility] (DEFAULT) [address] [place] [address] COMPREHENSIVE METABOLIC PANE [facility] 09-06-2024 Albumin [Mass/Vol] 4.2 g/dL 3.5 - 5.0 g/dL [facility] ALP [Catalytic activity/Vol] 132 U/L High 32 - 126 U/L [facility] ALT [Catalytic activity/Vol] 12 U/L 9 - 48 U/L [facility] Anion gap [Moles/Vol] 13 mmol/L 7 - 17 mmol/L [facility] AST [Catalytic activity/Vol] 22 U/L 10 - 39 U/L [facility] Bilirubin [Mass/Vol] 0.6 mg/dL NINF - 1.5 mg/dL [facility] Calcium [Mass/Vol] 9.6 mg/dL 8.6 - 10. 5 mg/dL [facility] Chloride [Moles/Vol] 102 mmol/L 98 - 10 8 mmol/L [facility] CO2 [Moles/Vol] 26 mmol/L 21 - 31 mmol/L [facility] Creatinine [Mass/Vol] 0.86 mg/dL 0.50 - 1.20 mg/dL [facility] eGFR, CKD-EPI, Female 67 - PINF [facility] Comment on above: Reported eGFR is bas ed on the CKD-EPI 2020 equation using creatinine, age, and sex. Glucose [Mass/Vol] 115 mg/dL 70 - 179 mg/dL [facility] Interpretation and review of laboratory results Abnormal [facility] Osmolality Calc [Osmolality] [facility] Potassium [Moles/Vol] 3.4 mmol/L Low 3.5 - 5.0 mmol/L [facility] Protein [Mass/Vol] 7.2 g/dL 6.4 - 8.3 g/dL [facility] Sodium [Moles/Vol] 138 mmol/L 135 - 145 mmol/L [facility] Urea nitrogen [Mass/Vol] 17 mg/dL 7 - 25 mg/dL [facility] Urea nitrogen/Creatinine [Mass ratio] 20 mg/mg [facility] Albumin [Mass/Vol] 4.2 g/dL Normal 3.5-5.0 [facility] Comment on above: Performed By: #### C MPN, LDO #### [facility] (DEFAULT) [address] [place] [address] ALP [Catalytic activity/Vol] 132 U/L High 32-126 [facility] Comment on above: Performed By: #### C MPN, LDO #### [facility] (DEFAULT) [address] [place] [address] ALT [Catalytic activity/Vol] 12 U/L Normal 9-48 [facility] Comment on above: Performed By: #### C MPN, LDO #### [facility] (DEFAULT) [address] [place] [address] Anion gap [Moles/Vol] 13 mmol/L Normal 7-17 [facility] Comment on above: Performed By: #### C MPN, LDO #### [facility] (DEFAULT) [address] [place] [address] AST [Catalytic activity/Vol] 22 U/L Normal 10-39 [facility] Comment on above: Performed By: #### C MPN, LDO #### [facility] (DEFAULT) [address] [place] [address] Bilirubin [Mass/Vol] 0.6 mg/dL Normal <1.5 [facility] Comment on above: Performed By: #### C MPN, LDO #### [facility] (DEFAULT) [address] [place] [address] Calcium [Mass/Vol] 9.6 mg/dL Normal 8.6-10.5 [facility] Comment on above: Performed By: #### C MPN, LDO #### [facility] (DEFAULT) [address] [place] [address] Chloride [Moles/Vol] 102 mmol/L Normal 98-108 [facility] Comment on above: Performed By: #### C MPN, LDO #### [facility] (DEFAULT) [address] [place] [address] CO2 [Moles/Vol] 26 mmol/L Normal 21-31 [facility] Comment on above: Performed By: #### C MPN, LDO #### [facility] (DEFAULT) [address] [place] [address] Creatinine [Mass/Vol] 0.86 mg/dL Normal 0.50-1.20 [facility] Comment on above: Performed By: #### C MPN, LDO #### [facility] (DEFAULT) [address] [place] [address] GFR/1.73 sq M.predicted among non-blacks MDRD (S/P/Bld) [Vol rate/Area] 67 mL/min/{1.73_m2} Normal >=60 [facility] Comment on above: Result Comment: Repo rted eGFR is based on the CKD-EPI 2020 equation using creatinine, age, and sex. Performed By: #### C MPN, LDO #### [facility] (DEFAULT) [address] [place] [address] Glucose [Mass/Vol] 115 mg/dL Normal Nonfastin -179 mg/dL; Fastin-99 [facility] Comment on above: Performed By: #### C MPN, LDO #### [facility] (DEFAULT) [address] [place] [address] Osmolality [Osmolality] 290 mosm/kg Normal 278-305 [facility] Comment on above: Performed By: #### C MPN, LDO #### [facility] (DEFAULT) [address] [place] [address] Potassium [Moles/Vol] 3.4 mmol/L Low 3.5-5.0 [facility] Comment on above: Performed By: #### C MPN, LDO #### [facility] (DEFAULT) [address] [place] [address] Protein [Mass/Vol] 7.2 g/dL Normal 6.4-8.3 [facility] Comment on above: Performed By: #### C MPN, LDO #### [facility] (DEFAULT) [address] [place] [address] Sodium [Moles/Vol] 138 mmol/L Normal 135-145 [facility] Comment on above: Performed By: #### C MPN, LDO #### [facility] (DEFAULT) [address] [place] [address] Urea nitrogen [Mass/Vol] 17 mg/dL Normal 7-25 [facility] Comment on above: Performed By: #### C MPN, LDO #### [facility] (DEFAULT) [address] [place] [address] Urea nitrogen/Creatinine [Mass ratio] 20 mg/mg Normal [facility] Comment on above: Performed By: #### C MPN, LDO #### [facility] (DEFAULT) [address] [place] [address] GASTRIN - NON-STIMULATEDon 0 7-25-2025 Gastrin 1534 pg/mL High [facility] Comment on above: Result Comment: REFERENCE VALUE <100 Reference ranges valid for >= 8 hour fast. Test Performed by: [facility] [address] [place] [address] Fabrication Welder: Lizzy Ring Ph.D.; CLIA# [id number] Performed By: #### L [id number] #### [facility] (DEFAULT) [address] [place] [address] LACTATE DEHYDROGENASEon 08-14 Interpretation and review of laboratory results Normal [facility] LDH Lactate to pyruvate reaction [Catalytic activity/Vol] 170 U/L 100 - 190 U/L [facility] LD Total 170 U/L Normal 100-190 [facility] Comment on above: Performed By: #### C MPN, LDO #### [facility] (DEFAULT) [address] [place] [address] No Panel Informationon 09-06 [facility] NUC LARRY-177 DOTATATE THERAPYo n 07-26-2024 NUC LARRY-177 DOTATATE THERAPY EXAM: NUC LARRY-177 DOTATATE THERAPY, 07/26/2024 10:18 AM CLINICAL INDICATIONS: This radiopharmaceutical [...] Uneventful administration of Luttetium -177 Dotatate therapy Normal [facility] FINDINGS/IMPRESSION: Uneventful administration of Luttetium -177 Dotatate therapy OLOGY EXAM: NUC LARRY-177 DOT ATATE THERAPY, 07/26/2024 10:18 AM CLINICAL INDICATIONS: This radiopharmaceutical [...] is the patient's first administration of LutaThera. RADIOLOGY Nathaniel Ring MD - 07/26/2024 EXAM: NUC LARRY-177 DOTATATE THERAPY, 07/26/2024 10:18 AM CLINICAL INDICATIONS: This radiopharmaceutical [...] is the patient's first administration of LutaThera. IMPRESSION FINDINGS/IMPRESSION: Uneventful administration of Luttetium -177 Dotatate therapy [facility] Radiology Study observation (narrative) [facility] NUC LARRY-177 DOTATATE THERAPYO rdered By: Nathaniel Ring on 07-26-2024 [facility] Work Phone: Gastrin, Serumon 07-18-2024 GASTRIN 1431 pg/mL High 0-115 [facility] Comment on above: Order Comment: CHR Result Comment: Re sults verified by repeat testing Siemens FlyData 2000 Immunochemiluminometric assay (ICMA) Values obtained with different assay methods or kits cannot be used interchangeably. Results cannot be interpreted as absolute evidence of the presence or absence of malignant disease. Performed By: #### L 100.0100, L3100.4810, L500.4050, L504.2610, L3300.1800 #### [facility] [address] [place], [place], [id number] L3100.4810on 07-18-2024 Chromogranin A 454.0 ng/mL Abnormal 0.0-101.8 [facility] Comment on above: Result Comment: Internal Wholesaler mogranin A performed by [employer] KRYPTOR methodology Values obtained with different assay methods or kits cannot be used interchangeably. Performed at: [address] [id number] Fabrication Welder: Mayo Lowery MD, Phone: [phone] Performed By: #### L 501.2275 #### [facility] [address] [place], [place], [id number] Absolute lymphocyte counton 07-15-2024 Lymphocytes Auto (Unsp spec) [#/Vol] 1.88 10*3/uL 0.83-4.51 [facility] Absolute neutrophil counton 07-15-2024 Neutrophils (Bld) [#/Vol] 3.8 10*3/uL 2.0-7.7 [facility] Anion gap in Serum or Plasma on 07-15-2024 Anion gap [Moles/Vol] 13 mmol/L 5-15 [facility] Automated lymphocyte count a s percentage of total leukocyteson 07-15-2024 Lymphocytes/100 WBC Auto (Unsp spec) 27.2 % 19-41 [facility] BUN/creatinine ratioon 07-15 Urea nitrogen/Creatinine [Mass ratio] 16.1 mg/mg 10-20 [facility] Basophil percentageon 2024 Basophils/100 WBC (Bld) 0.7 % 0-1 [facility] Bilirubin, totalon Bilirubin [Mass/Vol] 0.30 mg/dL 0.00-1.30 [facility] CBC W/Diff, Automatedon Absolute Lymph 1.88 X10 3/uL Normal 0.83-4.51 [facility] Comment on above: Performed By: #### L 501.2276 #### [facility] [address] [place], [address] Absolute Neut 3.8 X10 3/uL Normal 2.0-7.7 [facility] Comment on above: Performed By: #### L 501.2276 #### [facility] [address] [place], [address] Basophils/100 WBC (Bld) 0.7 % Normal 0-1 [facility] Comment on above: Performed By: #### L 501.2276 #### [facility] [address] [place], [address] Eosinophils/100 WBC (Bld) 2.5 % Normal 0-5 [facility] Comment on above: Performed By: #### L 501.2276 #### [facility] [address] [place], [address] Erythrocyte distribution width (RBC) [Ratio] 15.3 % High 11.6-14.6 [facility] Comment on above: Performed By: #### L 501.2276 #### [facility] [address] [place], [address] Hematocrit (Bld) [Volume fraction] 34.3 % Low 37-47 [facility] Comment on above: Performed By: #### L 501.2276 #### [facility] [address] [place], [address] Hemoglobin (Bld) [Mass/Vol] 11.3 g/dL Low 12.0-15.0 [facility] Comment on above: Performed By: #### L 501.2276 #### [facility] [address] [place], [address] IG% 0.600 Normal 0.0-0.9 [facility] Comment on above: Result Comment: IG% - Immature Granulocytes (promyelocytes, myelocytes and metamyelocytes) > 1% indicates that a LEFT SHIFT is Present. Performed By: #### L 501.2276 #### [facility] [address] [place], [address] Lymphocytes/100 WBC (Bld) 27.2 % Normal 19-41 [facility] Comment on above: Performed By: #### L 501.2276 #### [facility] [address] [place], [address] MCH (RBC) [Entitic mass] 28.5 pg Normal 27.0-32.0 [facility] Comment on above: Performed By: #### L [id number] #### [facility] [address] [place], [address] MCHC (RBC) [Mass/Vol] 32.9 g/dL Normal 32-36 [facility] Comment on above: Performed By: #### L [id number] #### [facility] [address] [place], [address] MCV (RBC) [Entitic vol] 86.4 fL Normal 81-99 [facility] Comment on above: Performed By: #### L [id number] #### [facility] [address] [place], [address] Monocytes/100 WBC (Bld) 13.9 % High 0-10 [facility] Comment on above: Performed By: #### L 501.2276 #### [facility] [address] [place], [address] Neutrophils/100 WBC (Bld) 55.1 % Normal 47-70 [facility] Comment on above: Performed By: #### L 501.2276 #### [facility] [address] [place], [address] Nucleated RBC (Bld) [#/Vol] 0 10*3/uL Normal 0-5 [facility] Comment on above: Performed By: #### L 501.2276 #### [facility] [address] [place], [address] Platelet mean volume (Bld) [Entitic vol] 9.6 fL Normal 6.2-12.0 [facility] Comment on above: Performed By: #### L 501.2276 #### [facility] [address] [place], [address] Platelets (Bld) [#/Vol] 264 10*3/uL Normal 150-450 [facility] Comment on above: Performed By: #### L 501.2276 #### [facility] [address] [place], [address] RBC (Bld) [#/Vol] 3.97 10*6/uL Low 4.2-5.4 [facility] Comment on above: Performed By: #### L 501.2276 #### [facility] [address] [place], [address] RDW SD 48.8 fl High 35.1-43.9 [facility] Comment on above: Performed By: #### L 501.2276 #### [facility] [address] [place], [address] WBC (Bld) [#/Vol] 6.9 10*3/uL Normal 4.4-11.0 [facility] Comment on above: Performed By: #### L 501.2276 #### [facility] [address] [place], [address] Carbon dioxide, total [Moles /volume] in Central venous bloodon 07-15-2024 CO2 [Moles/Vol] 24.1 mmol/L 21.0-32.0 [facility] Chloride assayon 07-15-2024 Chloride [Moles/Vol] 95 mmol/L Low 98-108 [facility] Comprehensive Metabolic Prof ilon 07-15-2024 Albumin [Mass/Vol] 4.1 g/dL Normal 3.4-4.8 [facility] Comment on above: Order Comment: CHR Performed By: #### L 501.2276 #### [facility] [address] [place], [address] Albumin/Globulin [Mass ratio] 1.5 {ratio} Normal 0.9-2.4 [facility] Comment on above: Order Comment: CHR Performed By: #### L 501.2276 #### [facility] [address] [place], [address] ALK PHOS 117 U/L High 35-104 [facility] Comment on above: Order Comment: CHR Performed By: #### L [id number] #### [facility] [address] [place], [address] ALT [Catalytic activity/Vol] 10 U/L Normal <=34 [facility] Comment on above: Order Comment: CHR Performed By: #### L 501.2276 #### [facility] [address] [place], [address] AST [Catalytic activity/Vol] 21 U/L Normal <=31 [facility] Comment on above: Order Comment: CHR Performed By: #### L 501.2276 #### [facility] [address] [place], [address] Bilirubin [Mass/Vol] 0.30 mg/dL Normal 0.00-1.30 [facility] Comment on above: Order Comment: CHR Performed By: #### L 501.2276 #### [facility] [address] [place], [address] BUN/CRE 16.1 RATIO Normal 10-20 [facility] Comment on above: Order Comment: CHR Performed By: #### L 501.2276 #### [facility] [address] [place], [address] Calcium [Mass/Vol] 9.5 mg/dL Normal 7.6-11.0 [facility] Comment on above: Order Comment: CHR Performed By: #### L 501.2276 #### [facility] [address] [place], [address] Chloride [Moles/Vol] 95 mmol/L Low 98-108 [facility] Comment on above: Order Comment: CHR Performed By: #### L [id number] #### [facility] [address] [place], [address] CO2 [Moles/Vol] 24.1 mmol/L Normal 21.0-32.0 [facility] Comment on above: Order Comment: CHR Performed By: #### L 501.2276 #### [facility] [address] [place], [address] Creatinine [Mass/Vol] 1.01 mg/dL Normal 0.70-1.20 [facility] Comment on above: Order Comment: CHR Performed By: #### L [id number] #### [facility] [address] [place], [address] GAP 13 Normal 5-15 [facility] Comment on above: Order Comment: CHR Performed By: #### L 501.2276 #### [facility] [address] [place], [address] GFR/1.73 sq M.predicted among non-blacks MDRD (S/P/Bld) [Vol rate/Area] 56 mL/min/{1.73_m2} Low >60 [facility] Comment on above: Order Comment: CHR Result Comment: mL/m in/1.73m2 CKD-EPI Creatinine Equation (2020) Performed By: #### L 501.2276 #### [facility] [address] [place], [address] Globulin (S) [Mass/Vol] 2.7 g/dL Normal 2.2-4.2 [facility] Comment on above: Order Comment: CHR Performed By: #### L 501.2276 #### [facility] [address] [place], [address] Glucose [Mass/Vol] 114 mg/dL High 70-99 [facility] Comment on above: Order Comment: CHR Performed By: #### L 501.2276 #### [facility] [address] [place], [address] Potassium [Moles/Vol] 3.8 mmol/L Normal 3.3-5.1 [facility] Comment on above: Order Comment: CHR Performed By: #### L 501.2276 #### [facility] [address] [place], [address] Sodium [Moles/Vol] 132 mmol/L Low 133-145 [facility] Comment on above: Order Comment: CHR Performed By: #### L 501.2276 #### [facility] [address] [place], [address] T PROT 6.8 g/dL Normal 5.9-8.4 [facility] Comment on above: Order Comment: CHR Performed By: #### L 501.2276 #### [facility] [address] [place], [address] Urea nitrogen [Mass/Vol] 16 mg/dL Normal 4-19 [facility] Comment on above: Order Comment: CHR Performed By: #### L 501.2276 #### [facility] [address] [place], [address] Eosinophil percentageon 06-0 Eosinophils/100 WBC (Bld) 2.5 % 0-5 [facility] Erythrocyte distribution wid th ratioon --2024 Erythrocyte distribution width (RBC) [Ratio] 15.3 % High 11.6-14.6 [facility] Erythrocyte distribution wid th standard deviationon 07-15-2024 Erythrocyte distribution width (RBC) [Ratio] 48.8 fl High 35.1-43.9 [facility] Glomerular filtration rate ( GFR) estimation/1.73 sq m using serum, plasma, or whole bon 07-15-2024 GFR/1.73 sq M.predicted among non-blacks MDRD (S/P/Bld) [Vol rate/Area] 56 mL/min/{1.73_m2} Low >60 [facility] Comment on above: mL/min/1.73m2 CKD-EP I Creatinine Equation (2020) Hematocrit Auto (Bld) [Volum e fraction]on 07-15-2024 Hematocrit (Bld) [Volume fraction] 34.3 % Low 37-47 [facility] Hemoglobin measurementon Hemoglobin (Bld) [Mass/Vol] 11.3 g/dL Low 12.0-15.0 [facility] Immature granulocytes/100 WB C Auto (Bld)on 07-15-2024 Immature granulocytes/100 WBC (Bld) 0.600 % 0.0-0.9 [facility] Comment on above: IG% - Immature Granu locytes (promyelocytes, myelocytes and metamyelocytes) > 1% indicates that a LEFT SHIFT is Present. LDHon 07-15-2024 LDH 162 U/L Normal 84-246 [facility] Comment on above: Order Comment: CHR1 Performed By: #### L 501.2276 #### [facility] [address] [place] [address], [address] Laboratory - Chemistry and C hemistry - challengeon 07-15-2024 AST [Catalytic activity/Vol] 21 U/L <32 [facility] Lactate dehydrogenase (LDH) measurementon 07-15-2024 LDH [Catalytic activity/Vol] 162 U/L 84-246 [facility] MCV (mean corpuscular volume ) determinationon 07-15-2024 MCV (RBC) [Entitic vol] 86.4 fL 81-99 [facility] Mean corpuscular hemoglobin (MCH) determinationon 07-15-2024 MCH (RBC) [Entitic mass] 28.5 pg 27.0-32.0 [facility] Mean corpuscular hemoglobin concentration (MCHC) determinationon 07-15-2024 MCHC (RBC) [Mass/Vol] 32.9 g/dL 32-36 [facility] Mean platelet volume determi nationon 07-15-2024 Platelet mean volume (Bld) [Entitic vol] 9.6 fL 6.2-12.0 [facility] Monocyte percentageon 2024 Monocytes/100 WBC (Bld) 13.9 % High 0-10 [facility] Neutrophil percentageon 06-0 Neutrophils/100 WBC (Bld) 55.1 % 47-70 [facility] Nucleated red blood cell per centageon 07-15-2024 Nucleated RBC/100 WBC (Bld) [Ratio] 0 % 0-5 [facility] Platelet counton 07-15-2024 Platelets (Bld) [#/Vol] 264 10*3/uL 150-450 [facility] Potassium measurement (mass/ volume)on 07-15-2024 Potassium (Unsp spec) [Mass/Vol] 3.8 mmol/L 3.3-5.1 [facility] RBC Auto (Bld) [#/Vol]on RBC (Bld) [#/Vol] 3.97 10*6/uL Low 4.2-5.4 [facility] Serum creatinine measurement (mass/volume)on 07-15-2024 Creatinine [Mass/Vol] 1.01 mg/dL 0.70-1.20 [facility] Serum globulin measurementon 07-15-2024 Globulin (S) [Mass/Vol] 2.7 g/dL 2.2-4.2 [facility] Serum glucose measurement (m ass/volume)on 07-15-2024 Glucose [Mass/Vol] 114 mg/dL High 70-99 [facility] Serum or plasma alanine muhammad otransferase (ALT) measurementon 07-15-2024 ALT [Catalytic activity/Vol] 10 U/L <35 [facility] Serum or plasma albumin margot urement (mass/volume)on 07-15-2024 Albumin [Mass/Vol] 4.1 g/dL 3.4-4.8 [facility] Serum or plasma albumin/glob ulin mass ratioon 07-15-2024 Albumin/Globulin [Mass ratio] 1.5 {ratio} 0.9-2.4 [facility] Serum or plasma alkaline deonte sphatase measurementon 07-15-2024 ALP [Catalytic activity/Vol] 117 U/L High 35-104 [facility] Serum or plasma calcium margot urement (mass/volume)on 07-15-2024 Calcium [Mass/Vol] 9.5 mg/dL 7.6-11.0 [facility] Serum or plasma urea nitroge n measurement (mass/volume)on 07-15-2024 Urea nitrogen [Mass/Vol] 16 mg/dL 4-19 [facility] Sodium levelon 07-15-2024 Sodium [Moles/Vol] 132 mmol/L Low 133-145 [facility] Total proteinon 07-15-2024 Protein [Mass/Vol] 6.8 g/dL 5.9-8.4 [facility] White blood cell (WBC) count on 07-15-2024 WBC (Bld) [#/Vol] 6.9 10*3/uL 4.4-11.0 [facility] NUC PET HEAD TO THIGHon NUC PET HEAD TO THIGH EXAM: NUC PET HEAD TO THIGH, 06/14/2024 10:07 AM CLINICAL INDICATIONS: NET, COMPARISON: PET/CT 06/30/2023. MRI abdomen 06/07/[address] chest/ CT DOSE: DLP: 527 mGy x cm kVp: 120 TECHNIQUE: Approximately 55 minutes following the intravenous injection of Ga-68 Dotatate 5.2 mCi, the patient was positioned on the Siemens Victoriousgraph mCT TOF< PET/CT-64, [place] imaging unit. A [...] mesenteric foci in the abdomen and pelvis. Normal [facility] L501.2276on 06-13-2024 Ionized Calcium 1.23 mmol/L Normal 1.09-1.30 [facility] Comment on above: Performed By: #### L 501.2276 #### [facility] [place] [address], [address] [id number] 06-12-2024 [facility] Misc. COMMENT Normal . [facility] Comment on above: Order Comment: [id number] 9CTELOPEPTIDE TIGER POUR OFF FZ Result Comment: Test Ordered: [id number] C-Telopeptide, Serum C-Telopeptide, Serum 221 pg/mL ES Reference Range: . Reference Range: Premenopausal Women: 34 - 635 Postmenopausal Women: 34 - 1037 Performed at: [facility] [address] [place], [place] [id number] Fabrication Welder: Peterson Russell MD, Phone: [phone] Performed at: CB - [facility] [address] [id number] Fabrication Welder: Abdulaziz Jane PhD, Phone: [phone] Performed By: #### L [id number] #### [facility] [address] [facility] [place], [address] Emergency Department Summary on 06-11-2024 Emergency Department Summary [facility] Medical Records Department [address] [place] [address] Emergency Department Summary 06/11/24 MR#: [id number] Acct: [id number] Name: MARY JENKINS Rep #: [id number] : 1940 83 From: Vicente Givens MD PCP: Dr. Dario Wellington MD Status:REG ER Location: ED HPI History of Present Illness Chief Complaint: Fever Detail of Chief Complaint: Shingles is the chief complaint Informant: patient and family Onset/Context/Timing Onset: Days (Onset Monday, June 08) Context: Sudden Onset Timing: Continuous Quality: Pain Location: T10-T11 dermatomal distribution on the left Current Severity: Moderate Maximum Severity: Severe Worsened by: Touch Relieved by: Nothing Associated Symptoms Associated Symptoms: Nausea Narrative Narrative: Patient is a pleasant 83-year-old woman with history of hypertension, hyperlipidemia, PSVT, 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 She presents because of painful rash. She thinks she has shingles. She has not had a fever. She states she is nauseous does not feel well. She is not receiving any chemotherapy. Prior similar symptoms: No Recent Illness/Hospitalization: Yes [facility] Medical History Torn Achilles tendon Compression fracture of T8 vertebra T6 vertebral fracture Achilles rupture, left Fall Left arm pain Lymph nodes enlarged Bone metastases Lung metastases Regional lymph node metastasis present Parathyroid adenoma Primary malignant neuroendocrine neoplasm of ascending colon Neuroendocrine tumor History of stress test Wears dentures Depression Easy bruising Heartburn History of diverticulitis Non-smoker History of rheumatic fever Colon wall thickening Diarrhea Abdominal pain, RLQ Arthritis Fatigue Postoperative atrial fibrillation (02/2018) Parathyroid disease Degenerative arthritis of left foot Asthma Strain of foot, left Hyperlipidemia SVT (supraventricular tachycardia) Essential hypertension Home Medications ???Medication ???Instructions ???Recorded ???Last Taken ???Type sertraline 100 mg tablet 150 mg PO DAILY mood 01/31/1509/13 07:00 History cholecalciferol (vitamin D3) 25 2,000 unit PO DAILY 07/28/1509/24 History mcg (1,000 unit) tablet pyridoxine (vitamin B6) 50 mg 50 mg PO DAILY supplement 05/15/20 09/24/20 History tablet mecobalamin (vitamin B12) 1,000 1,000 mcg PO DAILY 09/04/20 Unknow n History mcg chewable tablet (B12 Active) glucosamine-chondroitin 250 mg-200 2 tab PO DAILY 04/01/21 Unknown History mg tablet (Osteo Bi-Flex) magnesium 250 mg tablet 250 mg PO DAILY 04/01/21 Unknown H istory potassium chloride 20 mEq 20 meq PO DAILY 05/21/21 Unknown H istory tablet,extended release(part/cryst) risedronate 35 mg tablet 35 mg PO QWEEK 05/21/21 Unknown Hi story flecainide 100 mg tablet 100 mg PO BID heart beat #180 tabs 07/13/23 Unknown Rx calcium citrate 1,000 mg tablet 1,000 mg PO .COMPLEX 08/18/23 Unkn own History amlodipine 5 mg tablet 5 mg PO DAILY #90 tabs 09/14/23 Un known Rx apixaban 5 mg tablet (Eliquis) 5 mg PO BID #180 tabs 01/05/24 Unk nown Rx hydrochlorothiazide 25 mg tablet 25 mg PO QAM 01/24/24 Unknown Hist ory lisinopril 40 mg tablet 40 mg PO DAILY This is a dose 01/13 03/08 Unknown History increase, patient is OUT of med. gabapentin 300 mg capsule 300 mg PO BID #90 caps 06/11/24 Un known Rx oxycodone-acetaminophen 5 mg-325 1 tab PO Q6H PRN PRN pain 5 days 0 06/11/24 Unknown Rx mg tablet #20 TABLETS Allergy/AdvReac Type Severity Reaction Status Date / Time Iodinated Contrast Media Allergy Severe Anaphylaxis Verified 06/11/24 19:13 (Iodinated Contrast Media - IV Dye) atorvastatin AdvReac Severe STOPPED at Verified 06/11/24 19:13 [facility] for eleveated LFT Penicillins (PCN) AdvReac Intermediate Hives Verified 06/11/24 19:13 Family History Father CAD (coronary artery disease) Heart disease Hypertension Mother Hypertension Brother Hypertension Sister Hypertension Daughter Thyroid cancer Surgical History History of breast lump removal History of surgery on left wrist Hx of arthroscopic knee surgery History of hysterectomy History of appendectomy History of left heart catheterization (06/25/18) History of colonoscopy (02/2018) History of parathyroidectomy ( 2013) History of cataract surgery Hx of cholecystectomy Hx of colonoscopy Social History Smoking Status: Never smoker second hand exposure: No alcohol intake: never substance use type: does not (more content not included)... Normal [facility] CBC AND ELECTRONIC DIFFon Basophils (Bld) [#/Vol] K/uL 0.00 - 0.15 K/uL [facility] Basophils/100 WBC (Bld) 0.1 % [facility] Differential cell count method Nom (Bld) Electronic Differential [facility] Eosinophils (Bld) [#/Vol] K/uL 0.00 - 0.42 K/uL [facility] Eosinophils/100 WBC (Bld) 0 % [facility] Erythrocyte distribution width (RBC) [Ratio] 15 % High 10.8 - 14.9 % [facility] Hematocrit (Bld) [Volume fraction] 35.3 % 34.9 - 44.3 % [facility] Hemoglobin (Bld) [Mass/Vol] 11.8 g/dL 11.4 - 15.2 g/dL [facility] Immature granulocytes (Bld) [#/Vol] 0.05 10*3/uL NINF - 0.08 K/uL [facility] Immature granulocytes/100 WBC (Bld) 0.6 % [facility] Interpretation and review of laboratory results Abnormal [facility] Lymphocytes (Bld) [#/Vol] 0.94 10*3/uL Low 1.16 - 3.51 K/uL [facility] Lymphocytes/100 WBC (Bld) 11.4 % [facility] MCH (RBC) [Entitic mass] 27.8 pg 25.9 - 33.9 pg [facility] MCHC (RBC) [Mass/Vol] 33.4 g/dL 31.4 - 35.9 g/dL [facility] MCV (RBC) [Entitic vol] 83.1 fL 79.6 - 97.7 fL [facility] Monocytes (Bld) [#/Vol] 0.13 10*3/uL Low 0.22 - 0.87 K/uL [facility] Monocytes/100 WBC (Bld) 1.6 % [facility] Neutrophils (Bld) [#/Vol] 7.08 10*3/uL 1.64 - 7.28 K/uL [facility] Nucleated RBC/100 WBC (Bld) [Ratio] 0 % [facility] Platelet mean volume (Bld) [Entitic vol] 9.1 fL 8.5 - 12.2 fL [facility] Platelets (Bld) [#/Vol] 325 10*3/uL 150 - 393 K/uL [facility] RBC (Bld) [#/Vol] 4.25 10*6/uL [facility] Segmented neutrophils/100 WBC (Bld) 86.3 % [facility] WBC (Bld) [#/Vol] 8.21 10*3/uL 3.99 - 11.19 K/uL [facility] Abs Baso Auto < Normal 0.00-0.15 [facility] Comment on above: Performed By: #### L [id number] #### [facility] (DEFAULT) [address] [place] [address] Abs Eos Auto < Normal 0.00-0.42 [facility] Comment on above: Performed By: #### L [id number] #### [facility] (DEFAULT) [address] [place] [address] Basophils/100 WBC (Bld) 0.1 % Normal [facility] Comment on above: Performed By: #### L [id number] #### [facility] (DEFAULT) [address] [place] [address] DIFF STATUS Electronic Differential Normal [facility] Comment on above: Performed By: #### L [id number] #### [facility] (DEFAULT) [address] [place] [address] Eosinophils/100 WBC (Bld) 0.0 % Normal [facility] Comment on above: Performed By: #### L [id number] #### [facility] (DEFAULT) [address] [place] [address] Hematocrit (Bld) [Volume fraction] 35.3 % Normal 34.9-44.3 [facility] Comment on above: Performed By: #### L [id number] #### [facility] (DEFAULT) [address] [place] [address] Hemoglobin (Bld) [Mass/Vol] 11.8 g/dL Normal 11.4-15.2 [facility] Comment on above: Performed By: #### L [id number] #### [facility] (DEFAULT) [address] [place] [address] Immature Grans % 0.6 % Normal [facility] Comment on above: Performed By: #### L [id number] #### [facility] (DEFAULT) [address] [place] [address] Immature Grans Absolute 0.05 K/uL Normal <=0.08 [facility] Comment on above: Performed By: #### L [id number] #### [facility] (DEFAULT) [address] [place] [address] Lymphocytes (Bld) [#/Vol] 0.94 10*3/uL Low 1.16-3.51 [facility] Comment on above: Performed By: #### L [id number] #### [facility] (DEFAULT) [address] [place] [address] Lymphocytes/100 WBC (Bld) 11.4 % Normal [facility] Comment on above: Performed By: #### L [id number] #### [facility] (DEFAULT) [address] [place] [address] MCV (RBC) [Entitic vol] 83.1 fL Normal 79.6-97.7 [facility] Comment on above: Performed By: #### L [id number] #### [facility] (DEFAULT) [address] [address] Mean Cell Hgb 27.8 pg Normal 25.9-33.9 [facility] Comment on above: Performed By: #### L [id number] #### [facility] (DEFAULT) [address] [address] Mean Cell Hgb Conc 33.4 g/dL Normal 31.4-35.9 [facility] Comment on above: Performed By: #### L [id number] #### [facility] (DEFAULT) [address] [place] [address] Monocytes (Bld) [#/Vol] 0.13 10*3/uL Low 0.22-0.87 [facility] Comment on above: Performed By: #### L [id number] #### [facility] (DEFAULT) [address] [address] Monocytes/100 WBC (Bld) 1.6 % Normal [facility] Comment on above: Performed By: #### L [id number] #### [facility] (DEFAULT) [address] [place] [address] Nucleated RBC 0.0 /100 WBC Normal <=0.2 [facility] Comment on above: Performed By: #### L [id number] #### [facility] (DEFAULT) [address] [address] Platelet mean volume (Bld) [Entitic vol] 9.1 fL Normal 8.5-12.2 [facility] Comment on above: Performed By: #### L [id number] #### [facility] (DEFAULT) [address] [address] Platelets (Bld) [#/Vol] 325 10*3/uL Normal 150-393 [facility] Comment on above: Performed By: #### L [id number] #### [facility] (DEFAULT) [address] [address] RBC (Bld) [#/Vol] 4.25 10*6/uL Normal 3.91-5.04 [facility] Comment on above: Performed By: #### L [id number] #### [facility] (DEFAULT) [address] [address] RBC Distribution 15.0 % High 10.8-14.9 [facility] Comment on above: Performed By: #### L [id number] #### [facility] (DEFAULT) [address] [address] Segs + Bands Auto 86.3 % Normal [facility] Comment on above: Performed By: #### L [id number] #### [facility] (DEFAULT) [address] [address] Segs + Bands,Absolute Auto 7.08 K/uL Normal 1.64-7.28 [facility] Comment on above: Performed By: #### L [id number] #### [facility] (DEFAULT) [address] [address] WBC (Bld) [#/Vol] 8.21 10*3/uL Normal 3.99-11.19 [facility] Comment on above: Performed By: #### L [id number] #### [facility] (DEFAULT) [address] [place] [address] CHROMOGRANIN Aon 06-07-2024 Chromogranin A 317 ng/mL High <93 [facility] Comment on above: Result Comment: Impa ired renal or hepatic function or treatment with proton pump inhibitors may result in artifactual elevations of Chromogranin A. ADDITIONAL INFORMATION The testing method is a homogeneous time-resolved immunofluorescent assay manufactured by [employer] and performed on the [employer] Compact Plus. Values obtained with different assay [...] examination and other findings. Test Performed by: [place] [address] Fabrication Welder: Lizzy Ring Ph.D.; CLIA# [id number] Performed By: #### Y CHGRA #### [facility] (DEFAULT) [address] [address] COMPREHENSIVE METABOLIC PANE Bill 06-07-2024 Albumin [Mass/Vol] 4.5 g/dL 3.5 - 5.0 g/dL [facility] ALP [Catalytic activity/Vol] 121 U/L 32 - 126 U/L [facility] ALT [Catalytic activity/Vol] 15 U/L 9 - 48 U/L [facility] Anion gap [Moles/Vol] 15 mmol/L 7 - 17 mmol/L [facility] AST [Catalytic activity/Vol] 20 U/L 10 - 39 U/L [facility] Bilirubin [Mass/Vol] 0.6 mg/dL NINF - 1.5 mg/dL [facility] Calcium [Mass/Vol] 10.1 mg/dL 8.6 - 10. 5 mg/dL [facility] Chloride [Moles/Vol] 91 mmol/L Low 98 - 10 8 mmol/L [facility] CO2 [Moles/Vol] 28 mmol/L 21 - 31 mmol/L [facility] Creatinine [Mass/Vol] 0.82 mg/dL 0.50 - 1.20 mg/dL [facility] eGFR, CKD-EPI, Female 71 - PINF [facility] Comment on above: Reported eGFR is bas ed on the CKD-EPI 2020 equation using creatinine, age, and sex. Glucose [Mass/Vol] 147 mg/dL 70 - 179 mg/dL [facility] Interpretation and review of laboratory results Abnormal [facility] Osmolality Calc [Osmolality] 277 Low [facility] Potassium [Moles/Vol] 3.7 mmol/L 3.5 - 5.0 mmol/L [facility] Protein [Mass/Vol] 7.7 g/dL 6.4 - 8.3 g/dL [facility] Sodium [Moles/Vol] 130 mmol/L Low 135 - 145 mmol/L [facility] Urea nitrogen [Mass/Vol] 15 mg/dL 7 - 25 mg/dL [facility] Urea nitrogen/Creatinine [Mass ratio] 18 mg/mg [facility] Albumin [Mass/Vol] 4.5 g/dL Normal 3.5-5.0 [facility] Comment on above: Performed By: #### C MPN, LDO #### [facility] (DEFAULT) [address] [place] [address] ALP [Catalytic activity/Vol] 121 U/L Normal 32-126 [facility] Comment on above: Performed By: #### C MPN, LDO #### [facility] (DEFAULT) [address] [place] [address] ALT [Catalytic activity/Vol] 15 U/L Normal 9-48 [facility] Comment on above: Performed By: #### C MPN, LDO #### [facility] (DEFAULT) [address] [place] [address] Anion gap [Moles/Vol] 15 mmol/L Normal 7-17 [facility] Comment on above: Performed By: #### C MPN, LDO #### [facility] (DEFAULT) [address] [place] [address] AST [Catalytic activity/Vol] 20 U/L Normal 10-39 [facility] Comment on above: Performed By: #### C MPN, LDO #### [facility] (DEFAULT) [address] [place] [address] Bilirubin [Mass/Vol] 0.6 mg/dL Normal <1.5 [facility] Comment on above: Performed By: #### C MPN, LDO #### [facility] (DEFAULT) [address] [place] [address] Calcium [Mass/Vol] 10.1 mg/dL Normal 8.6-10.5 [facility] Comment on above: Performed By: #### C MPN, LDO #### [facility] (DEFAULT) [address] [place] [address] Chloride [Moles/Vol] 91 mmol/L Low 98-108 [facility] Comment on above: Performed By: #### C MPN, LDO #### [facility] (DEFAULT) [address] [place] [address] CO2 [Moles/Vol] 28 mmol/L Normal 21-31 [facility] Comment on above: Performed By: #### C MPN, LDO #### [facility] (DEFAULT) [address] [place] [address] Creatinine [Mass/Vol] 0.82 mg/dL Normal 0.50-1.20 [facility] Comment on above: Performed By: #### C MPN, LDO #### [facility] (DEFAULT) [address] [place] [address] GFR/1.73 sq M.predicted among non-blacks MDRD (S/P/Bld) [Vol rate/Area] 71 mL/min/{1.73_m2} Normal >=60 [facility] Comment on above: Result Comment: Repo rted eGFR is based on the CKD-EPI 2020 equation using creatinine, age, and sex. Performed By: #### C MPN, LDO #### [facility] [place] (DEFAULT) [address] [place] [address] 42096 Glucose [Mass/Vol] 147 mg/dL Normal Nonfastin -179 mg/dL; Fastin-99 [facility] Comment on above: Performed By: #### C MPN, LDO #### [facility] [place] (DEFAULT) [address] [place] [address] 34608 Osmolality [Osmolality] 277 mosm/kg Low 278-305 [facility] Comment on above: Performed By: #### C MPN, LDO #### [facility] [place] (DEFAULT) [address] [place] [address] 74574 Potassium [Moles/Vol] 3.7 mmol/L Normal 3.5-5.0 [facility] Comment on above: Performed By: #### C MPN, LDO #### [facility] [place] (DEFAULT) [address] [place] [address] 20096 Protein [Mass/Vol] 7.7 g/dL Normal 6.4-8.3 [facility] Comment on above: Performed By: #### C MPN, LDO #### [facility] [place] (DEFAULT) [address] [place] [address] 26858 Sodium [Moles/Vol] 130 mmol/L Low 135-145 [facility] Comment on above: Performed By: #### C MPN, LDO #### [facility] [place] (DEFAULT) [address] [place] [address] 85328 Urea nitrogen [Mass/Vol] 15 mg/dL Normal 7-25 [facility] Comment on above: Performed By: #### C MPN, LDO #### [facility] [place] (DEFAULT) [address] [place] [address] Urea nitrogen/Creatinine [Mass ratio] 18 mg/mg Normal [facility] Comment on above: Performed By: #### C MPN, LDO #### [facility] [place] (DEFAULT) [address] [place] [address] CT CHEST WITHOUT CONTRASTon 06-07-2024 CT CHEST WITHOUT CONTRAST EXAM: CT CHEST WITHOUT CONTRAST COMPARISON: January 01, 2024 CLINICAL INDICATIONS: ongoing [...] error, please notify the sender immediately at [phone] and permanently delete the original report and destroy any copies or printouts. Normal [facility] CT Chest WO contraston 06-07 IMPRESSION: 1. Stable exam findings, no evidence [...] error, please notify the sender immediately at [phone] and permanently delete the original report and destroy any copies or printouts. RADIOLOGY EXAM: CT CHEST WITHO UT CONTRAST COMPARISON: January 01, 2024 CLINICAL INDICATIONS: ongoing [...] on prior examination with similar in size RADIOLOGY Elijah Wilde MD - 06/07/2024 EXAM: CT CHEST WITHOUT CONTRAST COMPARISON: January 01, 2024 CLINICAL INDICATIONS: ongoing [...] on prior examination with similar in size IMPRESSION IMPRESSION: 1. Stable exam findings, no evidence [...] error, please notify the sender immediately at [phone] and permanently delete the original report and destroy any copies or printouts. [facility] Radiology Study observation (narrative) [facility] CT Chest WO contrastOrdered By: Elijah Wilde on 06-07-2024 [facility] Work Phone: GASTRIN - NON-STIMULATEDon 0 06-07-2024 Gastrin 1315 pg/mL High [facility] Comment on above: Result Comment: REFERENCE VALUE <100 Reference ranges valid for >= 8 hour fast. Test Performed by: [facility] [address] [place] [address] Fabrication Welder: Lizzy Ring Ph.D.; CLIA# [id number] Performed By: #### L [id number] #### [facility] [place] (DEFAULT) [address] [place] [address] LACTATE DEHYDROGENASEon - Interpretation and review of laboratory results Normal [facility] LDH Lactate to pyruvate reaction [Catalytic activity/Vol] 126 U/L 100 - 190 U/L [facility] LD Total 126 U/L Normal 100-190 [facility] Comment on above: Performed By: #### C MPN, LDO #### [facility] [place] (DEFAULT) [address] [place] [address] MR Abdomen WO and W contrast Irene 06-07-2024 IMPRESSION: Increased size of multiple hepatic metastatic lesions. OLOGY EXAM: MRI ABDOMEN WI TH AND WITHOUT CONTRAST, 06/07/2024 10:24 AM CLINICAL INDICATIONS: ongoing [...] bowel dilation or wall thickening. Duodenal diverticula. Peritoneum/retroperitoneum : No ascites. Lymph nodes: No enlarged or morphologically abnormal lymph nodes. Vasculature: The abdominal aorta is normal in course and caliber. Patent celiac and superior mesenteric arteries. Patent portal, splenic, and superior mesenteric veins. Body Wall: Normal. Bones: Multilevel degenerative changes of the spine. Other: The avid pelvic lesions seen on prior neuroendocrine PET are again not within the [id number] of this abdominal only study. RADIOLOGY Yany Valente MD - 06/07/2024 EXAM: MRI ABDOMEN WITH AND WITHOUT CONTRAST, 06/07/2024 10:24 AM CLINICAL INDICATIONS: ongoing [...] bowel dilation or wall thickening. Duodenal diverticula. Peritoneum/retroperitoneum : No ascites. Lymph nodes: No enlarged or morphologically abnormal lymph nodes. Vasculature: The abdominal aorta is normal in course and caliber. Patent celiac and superior mesenteric arteries. Patent portal, splenic, and superior mesenteric veins. Body Wall: Normal. Bones: Multilevel degenerative changes of the spine. Other: The avid pelvic lesions seen on prior neuroendocrine PET are again not within the [id number] of this abdominal only study. IMPRESSION IMPRESSION: Increased size of multiple hepatic metastatic lesions. [facility] Radiology Study observation (narrative) [facility] MR Abdomen WO and W contrast IVOrdered By: Yany Valente on 06-07-2024 [facility] Work Phone: 12 Lead EKG performed by [facility] on 06-06-2024 12 Lead EKG performed by [facility] [address] [place] [address] 12 Lead EKG performed by [facility] 06/06/24 1407 MR#: [id number] Acct: [id number] Name: MARY JENKINS #: [id number] : 1940 83 From: Chava Rodriguez MD Attending Dr: Dr. Chava Rodriguez MD Status: DEP A MB Ordering Dr: Chava Rodriguez MD Date: 06/06/24 Location: [facility] Sex: F C Admitted: BMS/12 Lead EKG performed by [facility] ECG Report Interpretation Sinus Rhythm -With rate variation cv = 16.WITHIN NORMAL LIMITSElectronically signed on 06/11/2024 at 09:59 by Chava Rodriguez [employer] Version 8610 06/11/24 1002 Date Chava Rodriguez MD CC: Dr. Blanca Cruz MD Date Dictated: 06/06/241406 Date Transcribed: 06/06/241406 Geodetic Computator: CO Signed Normal [facility] Anion gap in Serum or Plasma Ordered By: Sara Garcia on 06-06-2024 Anion gap [Moles/Vol] 12 mmol/L 5-15 [facility] BUN/creatinine ratioOrdered By: Sara Garcia on 06-06-2024 Urea nitrogen/Creatinine [Mass ratio] 15.3 mg/mg 10-20 [facility] Carbon dioxide, total [Moles /volume] in Central venous bloodOrdered By: Sara Garcia on 06-06-2024 CO2 [Moles/Vol] 27.9 mmol/L 21.0-32.0 [facility] Cardiology Visit Reporton Cardiology Visit Report [facility]. [address] [place] [address] OFFICE VISIT Date of Service: 06/06/24 MR#: [id number] Acct: [id number] Name: MARY JENKINS Mk Rep #: [id number] : 1940 Provider: Dr. Chava Rodriguez MD Age/Sex: 83/F Location: [facility] Status: Signed HPI HPI History of Present Illness Details: This is a 83-year-old female who presents here today for a cardiovascular follow up. She is a lady with a history of supraventricular tachyarrhythmia, hypertension, hyperlipidemia and a history of parathyroid disease. She had had one brief episode of atrial fibrillation noted post colonoscopy. 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 She had undergone a right colon and terminal ileum surgery with right hemicolectomy and it demonstrated a well-differentiated neuroendocrine tumor involving the terminal ileum. It appears that she has been receiving embolization to her liver and she is scheduled to undergo the same at [facility]. You remember that she had undergone cardiac catheterization 2018 which did not demonstrate any obstructive coronary disease. She had a Holter monitor in October 2020 which did not demonstrate any evidence of atrial fibrillation. For reasons that are not entirely clear she tells me that she was sent by the cigar head perforator to go back to [facility] for evaluation of her shortness of breath. A stress test was done which demonstrated no evidence of ischemia there was a small size mixed fixed apical perfusion defect noted with a hyperdynamic function and coronary artery calcification noted. As a result of this she underwent a cardiac catheterization in November 2019 for demonstrating isolated plaque disease only. She returns for follow-up visit here. She is asymptomatic from the cardiac standpoint. She denies chest, arm, jaw, or neck discomfort. She denies palpitations. She denies bilateral lower extremity edema. She denies claudication. She states shortness of breath with activity and shortness of breath at rest.she denies orthopnea or PND. She denies chronic cough. She denies significant, sudden weight gain. She denies lightheadedness, dizziness, near-syncope, or syncope. She denies blood in urine, blood in stool, or epistaxis. He denies fever with chills. She denies myalgia. She states fatigue. Her exercise level has remained stable. 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 Accompanied by: Self Is patient in pain?: No Allergies Iodinated Contrast Media (Iodinated Contrast Media - IV Dye) Allergy (Severe, Verified 06/06/24 14:20) Anaphylaxis atorvastatin Adverse Reaction (Severe, Verified 06/06/24 14:20) STOPPED at [facility] for eleveated LFT Penicillins (PCN) Adverse Reaction (Intermediate, Verified 06/06/24 14:20) Hives Medications ???Medication ???Instructions ???Recorded ???Confirmed ???Type sertraline 100 mg tablet 150 mg PO DAILY mood 01/31/1505/15 History cholecalciferol (vitamin D3) 25 2,000 unit PO DAILY 07/28/1506/06 History mcg (1,000 unit) tablet pyridoxine (vitamin B6) 50 mg 50 mg PO DAILY supplement 05/15/20 06/06/24 History tablet mecobalamin (vitamin B12) 1,000 1,000 mcg PO DAILY 09/04/20 History mcg chewable tablet (B12 Active) glucosamine-chondroitin 250 mg-200 2 tab PO DAILY 04/01/21 06/06/24 History mg tablet (Osteo Bi-Flex) magnesium 250 mg tablet 250 mg PO DAILY 04/01/21 06/06/24 History potassium chloride 20 mEq 20 meq PO DAILY 05/21/21 06/06/24 History tablet,extended release(part/cryst) risedronate 35 mg tablet 35 mg PO QWEEK 05/21/21 06/06/24 H istory flecainide 100 mg tablet 100 mg PO BID heart beat #180 tabs 07/13/23 06/06/24 Rx calcium citrate 1,000 mg tablet 1,000 mg PO .COMPLEX 08/18/2305/15 History amlodipine 5 mg tablet 5 mg PO DAILY #90 tabs 09/14/23 Rx apixaban 5 mg tablet (Eliquis) 5 mg PO BID #180 tabs 01/05/24 Rx hydrochlorothiazide 25 mg tablet 25 mg PO QAM 01/24/24 06/06/24 His tory lisinopril 40 mg tablet 40 mg PO DAILY This is a dose 01/1306/06/24 History increase, patient is OUT of med. Have you fallen in the past year?: No [facility] Medical History Torn Achilles tendon Compression fracture of T8 vertebra T6 vertebral fracture Achilles rupture, left Fall Left arm pain Lymph nodes enlarged Bone metastases Lung metastas (more content not included)... Normal [facility] Chloride assayOrdered By: Yolanda Garcia on 06-06-2024 Chloride [Moles/Vol] 94 mmol/L Low 98-108 [facility] Glomerular filtration rate ( GFR) estimation/1.73 sq m using serum, plasma, or whole bOrdered By: Sara Garcia on 06-06-2024 GFR/1.73 sq M.predicted among non-blacks MDRD (S/P/Bld) [Vol rate/Area] 69 mL/min/{1.73_m2} >60 [facility] Comment on above: mL/min/1.73m2 CKD-EP I Creatinine Equation (2020) Hemoglobin A1con 06-06-2024 HbA1c (Bld) [Mass fraction] 5.7 % Normal <=5.6 [facility] Comment on above: Result Comment: Norm al < 5.7 % Prediabetic 5.7 - 6.4 % Diabetic >or= 6.5 % Please note range changes. Performed By: #### L 501.2276 #### [facility] [address] [place], [place], [id number] Hemoglobin A1c percentageOrd ered By: Sara Garcia on 06-06-2024 HbA1c (Bld) [Mass fraction] 5.7 % <5.7 [facility] Comment on above: Normal < 5.7 % Predi abetic 5.7 - 6.4 % Diabetic >or= 6.5 % Please note range changes. Magnesiumon 06-06-2024 Magnesium [Mass/Vol] 1.6 mg/dL Normal 1.5-2.2 [facility] Comment on above: Performed By: #### L 501.2273 #### [facility] [address] [place], [address] Magnesium measurement (mass/ volume)Ordered By: Sara Garcia on 06-06-2024 Magnesium (Unsp spec) [Mass/Vol] 1.6 mg/dL 1.5-2.2 [facility] PTHINon 06-06-2024 PTH 47 pg/mL Normal 11-61 [facility] Comment on above: Performed By: #### L 501.2276 #### [facility] [address] [place], [address] Potassium measurement (mass/ volume)Ordered By: Sara Garcia on 06-06-2024 Potassium (Unsp spec) [Mass/Vol] 3.4 mmol/L 3.3-5.1 [facility] Renal Profileon 06-06-2024 Albumin [Mass/Vol] 4.2 g/dL Normal 3.4-4.8 [facility] Comment on above: Performed By: #### L 501.2276 #### [facility] [address] [place], [address] BUN/CRE 15.3 RATIO Normal 10-20 [facility] Comment on above: Performed By: #### L 501.2276 #### [facility] [address] [place], [address] Calcium [Mass/Vol] 9.6 mg/dL Normal 7.6-11.0 [facility] Comment on above: Performed By: #### L 501.2276 #### [facility] [address] [place], [address] Chloride [Moles/Vol] 94 mmol/L Low 98-108 [facility] Comment on above: Performed By: #### L 501.2276 #### [facility] [address] [place], [address] CO2 [Moles/Vol] 27.9 mmol/L Normal 21.0-32.0 [facility] Comment on above: Performed By: #### L [id number] #### [facility] [address] [place], [address] Creatinine [Mass/Vol] 0.84 mg/dL Normal 0.70-1.20 [facility] Comment on above: Performed By: #### L [id number] #### [facility] [address] [place], [address] GAP 12 Normal 5-15 [facility] Comment on above: Performed By: #### L [id number] #### [facility] [address] [place], [address] GFR/1.73 sq M.predicted among non-blacks MDRD (S/P/Bld) [Vol rate/Area] 69 mL/min/{1.73_m2} Normal >60 [facility] Comment on above: Result Comment: mL/m in/1.73m2 CKD-EPI Creatinine Equation (2020) Performed By: #### L 501.2276 #### [facility] [address] [place], [address] Glucose [Mass/Vol] 95 mg/dL Normal 70-99 [facility] Comment on above: Performed By: #### L [id number] #### [facility] [address] [place], [address] Phosphate [Mass/Vol] 3.5 mg/dL Normal 2.7-4.5 [facility] Comment on above: Performed By: #### L 501.2276 #### [facility] [address] [place], [address] Potassium [Moles/Vol] 3.4 mmol/L Normal 3.3-5.1 [facility] Comment on above: Performed By: #### L 501.2276 #### [facility] [address] [place], [address] Sodium [Moles/Vol] 133 mmol/L Normal 133-145 [facility] Comment on above: Performed By: #### L 501.2276 #### [facility] [address] [place], [place], [address] Urea nitrogen [Mass/Vol] 13 mg/dL Normal 4-19 [facility] Comment on above: Performed By: #### L 501.2276 #### [facility] [address] [place], [place], [address] Serum creatinine measurement (mass/volume)Ordered By: Sara Garcia on 06-06-2024 Creatinine [Mass/Vol] 0.84 mg/dL 0.70-1.20 [facility] Serum glucose measurement (m ass/volume)Ordered By: Sara Garcia on 06-06-2024 Glucose [Mass/Vol] 95 mg/dL 70-99 [facility] Serum or plasma albumin margot urement (mass/volume)Ordered By: Sara Garcia on 06-06-2024 Albumin [Mass/Vol] 4.2 g/dL 3.4-4.8 [facility] Serum or plasma calcium margot urement (mass/volume)Ordered By: Sara Garcia on 06-06-2024 Calcium [Mass/Vol] 9.6 mg/dL 7.6-11.0 [facility] Serum or plasma urea nitroge n measurement (mass/volume)Ordered By: Sara Garcia on 06-06-2024 Urea nitrogen [Mass/Vol] 13 mg/dL -19 [facility] Sodium levelOrdered By: Deanne Hidalgo on 06-06-2024 Sodium [Moles/Vol] 133 mmol/L 133-145 [facility] Vitamin D,25 Hydroxyon 06-06 Vitamin D 25-OH 40.6 ng/mL Normal 30-100 [facility] Comment on above: Result Comment: [place] min D Status Deficiency: <20 ng/mL (50nmol/L) Insufficiency: 20-30 ng/mL (50-75 nmol/L) Sufficiency: 30-100 ng/mL (75-250 nmol/L) Toxicity: >100 ng/mL (>250 nmol/L) Performed By: #### L 501.2276 #### [facility] [address] [place], [address] Basic Metabolic Profile (BMP )on 04-01-2024 BUN/CRE 11.3 RATIO Normal 10-20 [facility] Comment on above: Order Comment: Order Date: 03/22/24 Order Info: 06 - BMP Performed By: #### L 500.2500 #### [facility] [address] [place], [address] CA,Total 9.6 mg/dL Normal 8.5-10.1 [facility] Comment on above: Order Comment: Order Date: 03/22/24 Order Info: 06 - BMP Performed By: #### L 500.2500 #### [facility] [address] [place], [address] Chloride [Moles/Vol] 95 mmol/L Low 98-107 [facility] Comment on above: Order Comment: Order Date: 03/22/24 Order Info: 06 - BMP Performed By: #### L 500.2500 #### [facility] [address] [place], [address] CO2 [Moles/Vol] 29.0 mmol/L Normal 21.0-32.0 [facility] Comment on above: Order Comment: Order Date: 03/22/24 Order Info: 0667 - BMP Performed By: #### L 500.2500 #### [facility] [address] [place], [address] Creatinine [Mass/Vol] 1.06 mg/dL High 0.55-1.02 [facility] Comment on above: Order Comment: Order Date: 03/22/24 Order Info: 0667- - BMP Result Comment: The validity of the calculated GFR GFRAA in patients over 70 years has not been determined. Clinical correlation is essential. Performed By: #### L 500.2500 #### [facility] [address] [place], [address] EST GFR - AA 64 mL/min Normal >60 [facility] Comment on above: Order Comment: Order Date: 03/22/24 Order Info: 0667- - BMP Result Comment: Afri can Swedish GFR Calc Performed By: #### L 500.2500 #### [facility] [address] [place], [address] GAP 8 Normal 5-15 [facility] Comment on above: Order Comment: Order Date: 03/22/24 Order Info: 0667- - BMP Performed By: #### L 500.2500 #### [facility] [address] [place], [address] GFR/1.73 sq M.predicted among non-blacks MDRD (S/P/Bld) [Vol rate/Area] 53 mL/min/{1.73_m2} Low >60 [facility] Comment on above: Order Comment: Order Date: 03/22/24 Order Info: 0667- - BMP Result Comment: Non- GFR Calc Performed By: #### L 500.2500 #### [facility] [address] [place], [address] Glucose [Mass/Vol] 113 mg/dL High 74-106 [facility] Comment on above: Order Comment: Order Date: 03/22/24 Order Info: 0667- - BMP Result Comment: Fast ing Glucose result from 100 to 125 mg/dL suggests IMPAIRED HOMEOSTASIS per A.D.A. criteria. Performed By: #### L 500.2500 #### [facility] [address] [place], [address] Potassium [Moles/Vol] 3.5 mmol/L Normal 3.5-5.1 [facility] Comment on above: Order Comment: Order Date: 03/22/24 Order Info: 0667- - BMP Performed By: #### L 500.2500 #### [facility] [address] [place], [place], [address] Sodium [Moles/Vol] 132 mmol/L Low 136-145 [facility] Comment on above: Order Comment: Order Date: 03/22/24 Order Info: 0667-1 - BMP Performed By: #### L 500.2500 #### [facility] [address] [place], [place], [address] Urea nitrogen [Mass/Vol] 12 mg/dL Normal 7-18 [facility] Comment on above: Order Comment: Order Date: 03/22/24 Order Info: 0667-1 - BMP Performed By: #### L 500.2500 #### [facility] [address] [place], [place], [address] Blood urea nitrogen (BUN)/cr eatinine ratioOrdered By: Blanca Cruz on 04-01-2024 Urea nitrogen/Creatinine [Mass ratio] 11.3 mg/mg 10-20 [facility] Carbon dioxide measurementOr dered By: Blanca Cruz on 04-01-2024 CO2 [Moles/Vol] 29.0 mmol/L 21.0-32.0 [facility] Chloride measurementOrdered By: Blanca Cruz on 04-01-2024 Chloride [Moles/Vol] 95 mmol/L Low 98-107 [facility] Glomerular filtration rate ( GFR) estimationOrdered By: Blanca Cruz on 04-01-2024 GFR/1.73 sq M.predicted among non-blacks MDRD (S/P/Bld) [Vol rate/Area] 53 mL/min/{1.73_m2} Low >60 [facility] Comment on above: Non- GFR Calc Glucose measurementOrdered B y: Blanca Cruz on 04-01-2024 Glucose [Mass/Vol] 113 mg/dL High 74-106 [facility] Comment on above: Fasting Glucose resu lt from 100 to 125 mg/dL suggests IMPAIRED HOMEOSTASIS per A.D.A. criteria. Lumbar Spine 2 or 3 Viewson 04-01-2024 Lumbar Spine 2 or 3 Views [facility] Services [address] [place], [place] [id number] Lumbar Spine 2 or 3 Views MR#: [id number] Acct: [id number] Name: MARY JENKINS Rep #: [id number] : 1940 F 83 From: [place] i DO PCP: Dr. Blanca Cruz MD Status: REG CLI Study: Lumbar Spine 2 or 3 Views Date of Exam: Exam# [id number] Ordering Dr: Harmony Morgan MD PROCEDURE: Lumbar spine radiographs, two views REASON FOR EXAM: Pain, degenerative disc disease TECHNIQUE: AP and lateral views of the lumbar spine were obtained. COMPARISON: None. FINDINGS: AP and lateral radiographs of the lumbar spine were obtained. Bones are osteopenic. Included portions of the pelvis and SI joints are intact. There is moderate leftward convex curvature of the mid lumbar spine on the AP view. Moderate multilevel degenerative disc and facet disease in the lumbar spine. Moderate atherosclerotic calcification of the lower abdominal aorta. No acute lumbar vertebral body fracture or focal subluxation. RAD/Lumbar Spine 2 or 3 Views IMPRESSION: Osteopenia. No acute bony abnormality of the lumbar spine. Moderate multilevel degenerative disc and facet disease in the lumbar spine. Moderate leftward convex curvature mid lumbar spine on the AP view. If there is persistent pain or clinical concern, short-term follow-up MRI evaluation may be considered. Reading Location: [facility] CC: Dr. Blanca Cruz MD; Dr. Harmony Morgan MD Geodetic Computator: Signed Normal [facility] Potassium measurementOrdered By: Blanca Cruz on 04-01-2024 Potassium [Moles/Vol] 3.5 mmol/L 3.5-5.1 [facility] Serum anion gap measurementO rdered By: Blanca Cruz on 04-01-2024 Anion gap [Moles/Vol] 8 mmol/L 5-15 [facility] Serum or plasma calcium margot urement (mass/volume)Ordered By: Blanca Cruz on 04-01-2024 Calcium [Mass/Vol] 9.6 mg/dL 8.5-10.1 [facility] Serum or plasma creatinine m easurement (mass/volume)Ordered By: Blanca Cruz on 04-01-2024 Creatinine [Mass/Vol] 1.06 mg/dL High 0.55-1.02 [facility] Comment on above: The validity of the calculated GFR & GFRAA in patients over 70 years has not been determined. Clinical correlation is essential. Serum or plasma urea nitroge n measurement (mass/volume)Ordered By: Blanca Cruz on 04-01-2024 Urea nitrogen [Mass/Vol] 12 mg/dL 7-18 [facility] Sodium levelOrdered By: Blanca Cruz on 04-01-2024 Sodium [Moles/Vol] 132 mmol/L Low 136-145 [facility] Thoracic Spine 3 Viewson Thoracic Spine 3 Views [facility] Imaging Services [address] [place] [address] Thoracic Spine 3 Views MR#: [id number] Acct: [id number] Name: MARY JENKINS Rep #: [id number] : 1940 F 83 From: Junior Carolina i, DO PCP: Dr. Blanca Cruz MD Status: REG CLI Study: Thoracic Spine 3 Views Date of Exam: 04/01/24 Exam# [id number] Ordering Dr: Harmony Morgan MD PROCEDURE: Thoracic spine radiographs, four views REASON FOR EXAM: Pain. Degenerative disc disease TECHNIQUE: Four views of the thoracic spine were obtained. COMPARISON: Thoracic spine CT 07/16/2022 FINDINGS: Four views of the thoracic spine were obtained. Bones are osteopenic. There is slight rightward curvature of the lower thoracic spine on the AP view. Included lungs are clear. There is exaggeration of the normal thoracic kyphosis on the lateral view. Tgpdlquu-gs-zxfffa compression deformity/kyphoplasty change of T8, slightly progressed from the comparison CT study. Moderate multilevel degenerative disc and facet disease in the thoracic spine. No new acute appearing thoracic vertebral body fracture. RAD/Thoracic Spine 3 Views IMPRESSION: Osteopenia. Exaggeration of the normal thoracic kyphosis. Worsened lonaptfv-mx-wggytq compression deformity of T8 compared to the prior thoracic spine CT of 07/16/2022. No new or acute appearing thoracic vertebral body fracture. Multilevel degenerative disc disease in the thoracic spine. Reading Location: [facility] CC: Dr. Blanca Cruz MD; Dr. Harmony Morgan MD Geodetic Computator: Signed Normal [facility] Basic Metabolic Profile (BMP )on 03-19-2024 BUN/CRE 14.1 RATIO Normal 10-20 [facility] Comment on above: Order Comment: Order Date: 12/19/23 Order Info: 0667 - BMP Performed By: #### L 500.2500 #### [facility] [address] [place], [address] CA,Total 9.1 mg/dL Normal 8.5-10.1 [facility] Comment on above: Order Comment: Order Date: 12/19/23 Order Info: 06 - BMP Performed By: #### L 500.2500 #### [facility] [address] [place], [address] Chloride [Moles/Vol] 96 mmol/L Low 98-107 [facility] Comment on above: Order Comment: Order Date: 12/19/23 Order Info: 06 - BMP Performed By: #### L 500.2500 #### [facility] [address] [place], [address] CO2 [Moles/Vol] 25.0 mmol/L Normal 21.0-32.0 [facility] Comment on above: Order Comment: Order Date: 12/19/23 Order Info: 0667 - BMP Performed By: #### L 500.2500 #### [facility] [address] [place], [address] Creatinine [Mass/Vol] 0.92 mg/dL Normal 0.55-1.02 [facility] Comment on above: Order Comment: Order Date: 12/19/23 Order Info: 0667- - BMP Result Comment: The validity of the calculated GFR GFRAA in patients over 70 years has not been determined. Clinical correlation is essential. Performed By: #### L 500.2500 #### [facility] [address] [place], [address] EST GFR - AA 75 mL/min Normal >60 [facility] Comment on above: Order Comment: Order Date: 12/19/23 Order Info: 0667-1 - BMP Result Comment: Afri can Swedish GFR Calc Performed By: #### L 500.2500 #### [facility] [address] [place], [address] GAP 10 Normal 5-15 [facility] Comment on above: Order Comment: Order Date: 12/19/23 Order Info: 0667- - BMP Performed By: #### L 500.2500 #### [facility] [address] [place], [address] GFR/1.73 sq M.predicted among non-blacks MDRD (S/P/Bld) [Vol rate/Area] 62 mL/min/{1.73_m2} Normal >60 [facility] Comment on above: Order Comment: Order Date: 12/19/23 Order Info: 0667- - BMP Result Comment: Non- GFR Calc Performed By: #### L 500.2500 #### [facility] [address] [place], [address] Glucose [Mass/Vol] 93 mg/dL Normal 74-106 [facility] Comment on above: Order Comment: Order Date: 12/19/23 Order Info: 0667- - BMP Performed By: #### L 500.2500 #### [facility] [address] [place], [address] Potassium [Moles/Vol] 3.3 mmol/L Low 3.5-5.1 [facility] Comment on above: Order Comment: Order Date: 12/19/23 Order Info: 0667- - BMP Performed By: #### L 500.2500 #### [facility] [address] [place], [address] Sodium [Moles/Vol] 131 mmol/L Low 136-145 [facility] Comment on above: Order Comment: Order Date: 12/19/23 Order Info: 0667-1 - BMP Performed By: #### L 500.2500 #### [facility] [address] [place], [place], [address] Urea nitrogen [Mass/Vol] 13 mg/dL Normal 7-18 [facility] Comment on above: Order Comment: Order Date: 12/19/23 Order Info: 0667-1 - BMP Performed By: #### L 500.2500 #### [facility] [address] [place], [place], [address] 5-HIAA 24 HR URon 03-13-2024 5-HIAA, Urine 18.3 mg/L Normal Undefined [facility] Comment on above: Order Comment: Test( s) 543740-6-DGMP, Urine was developed and its performance characteristics determined by [facility]. It has not been cleared or approved by the Food and Drug Administration. Performed By: #### L 3600.2500 #### [facility] [address] [place], [place], [address] 5-HIAA,U, 24 HR 16.5 mg/24 hr High 0.0-14.9 [facility] Comment on above: Order Comment: Test( s) 786992-5-AKHB, Urine was developed and its performance characteristics determined by [facility]. It has not been cleared or approved by the Food and Drug Administration. Result Comment: Perf ormed at: [facility] [id number] Fabrication Welder: Mayo Lowery MD, Phone: [phone] Performed By: #### L 3600.2500 #### [facility] [address] [place], [place], [address] Gastrin, Serumon 03-01-2024 GASTRIN 881 pg/mL High 0-115 [facility] Comment on above: Result Comment: [facility] [employer] 2000 Immunochemiluminometric assay (ICMA) Values obtained with different assay methods or kits cannot be used interchangeably. Results cannot be interpreted as absolute evidence of the presence or absence of malignant disease. Performed By: #### L 100.0100, L3100.4810, L500.4050, L504.2610, L3300.1800 #### [facility] [address] [place], [address] L3100.4810on 03-01-2024 Chromogranin A 381.4 ng/mL Abnormal 0.0-101.8 [facility] Comment on above: Result Comment: Internal Wh[employer] mogranin A performed by [employer] methodology Values obtained with different assay methods or kits cannot be used interchangeably. Performed at: [address] [id number] Fabrication Welder: Mayo Lowery MD, Phone: [phone] Performed By: #### L 100.0100, L3100.4810, L500.4050, L504.2610, L3300.1800 #### [facility] [address] [place], [address] CBC W/Diff, Automatedon 02-13 Absolute Lymph 1.71 X10 3/uL Normal 0.83-4.51 [facility] Comment on above: Performed By: #### L 100.0100, L3100.4810, L500.4050, L504.2610, L3300.1800 #### [facility] [address] [place], [address] Absolute Neut 4.3 X10 3/uL Normal 2.0-7.7 [facility] Comment on above: Performed By: #### L 100.0100, L3100.4810, L500.4050, L504.2610, L3300.1800 #### [facility] [address] [place], [address] Basophils/100 WBC (Bld) 1.1 % High 0-1 [facility] Comment on above: Performed By: #### L 100.0100, L3100.4810, L500.4050, L504.2610, L3300.1800 #### [facility] [address] [place], [address] Eosinophils/100 WBC (Bld) 4.2 % Normal 0-5 [facility] Comment on above: Performed By: #### L 100.0100, L3100.4810, L500.4050, L504.2610, L3300.1800 #### [facility] [address] [place], [address] Erythrocyte distribution width (RBC) [Ratio] 16.4 % High 11.6-14.6 [facility] Comment on above: Performed By: #### L 100.0100, L3100.4810, L500.4050, L504.2610, L3300.1800 #### [facility] [address] [place], [address] Hematocrit (Bld) [Volume fraction] 34.9 % Low 37-47 [facility] Comment on above: Performed By: #### L 100.0100, L3100.4810, L500.4050, L504.2610, L3300.1800 #### [facility] [address] [place], [address] Hemoglobin (Bld) [Mass/Vol] 11.2 g/dL Low 12.0-15.0 [facility] Comment on above: Performed By: #### L 100.0100, L3100.4810, L500.4050, L504.2610, L3300.1800 #### [facility] [address] [place], [address] IG% 0.300 Normal 0.0-0.9 [facility] Comment on above: Result Comment: IG% - Immature Granulocytes (promyelocytes, myelocytes and metamyelocytes) > 1% indicates that a LEFT SHIFT is Present. Performed By: #### L 100.0100, L3100.4810, L500.4050, L504.2610, L3300.1800 #### [facility] [address] [place], [address] Lymphocytes/100 WBC (Bld) 23.7 % Normal 19-41 [facility] Comment on above: Performed By: #### L 100.0100, L3100.4810, L500.4050, L504.2610, L3300.1800 #### [facility] [address] [place], [address] MCH (RBC) [Entitic mass] 26.7 pg Low 27.0-32.0 [facility] Comment on above: Performed By: #### L 100.0100, L3100.4810, L500.4050, L504.2610, L3300.1800 #### [facility] [address] [place], [address] MCHC (RBC) [Mass/Vol] 32.1 g/dL Normal 32-36 [facility] Comment on above: Performed By: #### L 100.0100, L3100.4810, L500.4050, L504.2610, L3300.1800 #### [facility] [address] [place], [address] MCV (RBC) [Entitic vol] 83.3 fL Normal 81-99 [facility] Comment on above: Performed By: #### L 100.0100, L3100.4810, L500.4050, L504.2610, L3300.1800 #### [facility] [address] [place], [address] Monocytes/100 WBC (Bld) 10.8 % High 0-10 [facility] Comment on above: Performed By: #### L 100.0100, L3100.4810, L500.4050, L504.2610, L3300.1800 #### [facility] [address] [place], [address] Neutrophils/100 WBC (Bld) 59.9 % Normal 47-70 [facility] Comment on above: Performed By: #### L 100.0100, L3100.4810, L500.4050, L504.2610, L3300.1800 #### [facility] [address] [place], [address] Nucleated RBC (Bld) [#/Vol] 0 10*3/uL Normal 0-5 [facility] Comment on above: Performed By: #### L 100.0100, L3100.4810, L500.4050, L504.2610, L3300.1800 #### [facility] [address] [place], [address] Platelet mean volume (Bld) [Entitic vol] 9.6 fL Normal 6.2-12.0 [facility] Comment on above: Performed By: #### L 100.0100, L3100.4810, L500.4050, L504.2610, L3300.1800 #### [facility] [address] [place], [address] Platelets (Bld) [#/Vol] 286 10*3/uL Normal 150-450 [facility] Comment on above: Performed By: #### L 100.0100, L3100.4810, L500.4050, L504.2610, L3300.1800 #### [facility] [address] [place], [address] RBC (Bld) [#/Vol] 4.19 10*6/uL Low 4.2-5.4 [facility] Comment on above: Performed By: #### L 100.0100, L3100.4810, L500.4050, L504.2610, L3300.1800 #### [facility] [address] [place], [address] RDW SD 49.7 fl High 35.1-43.9 [facility] Comment on above: Performed By: #### L 100.0100, L3100.4810, L500.4050, L504.2610, L3300.1800 #### [facility] [address] [place], [address] WBC (Bld) [#/Vol] 7.2 10*3/uL Normal 4.4-11.0 [facility] Comment on above: Performed By: #### L 100.0100, L3100.4810, L500.4050, L504.2610, L3300.1800 #### [facility] [address] [place], [address] Comprehensive Metabolic Prof ilon 02-27-2024 Albumin [Mass/Vol] 3.6 g/dL Normal 3.2-5.0 [facility] Comment on above: Order Comment: 1 Performed By: #### L 100.0100, L3100.4810, L500.4050, L504.2610, L3300.1800 #### [facility] [address] [place], [address] Albumin/Globulin [Mass ratio] 0.9 {ratio} Normal 0.9-2.4 [facility] Comment on above: Order Comment: 1 Performed By: #### L 100.0100, L3100.4810, L500.4050, L504.2610, L3300.1800 #### [facility] [address] [place], [address] ALK P 162 U/L High 45-117 [facility] Comment on above: Order Comment: 1 Performed By: #### L 100.0100, L3100.4810, L500.4050, L504.2610, L3300.1800 #### [facility] [address] [place], [address] ALT [Catalytic activity/Vol] 21 U/L Normal 13-56 [facility] Comment on above: Order Comment: 1 Performed By: #### L 100.0100, L3100.4810, L500.4050, L504.2610, L3300.1800 #### [facility] [address] [place], [address] AST [Catalytic activity/Vol] 33 U/L Normal 15-37 [facility] Comment on above: Order Comment: 1 Performed By: #### L 100.0100, L3100.4810, L500.4050, L504.2610, L3300.1800 #### [facility] [address] [place], [address] Bilirubin [Mass/Vol] 0.50 mg/dL Normal 0.20-1.00 [facility] Comment on above: Order Comment: 1 Result Comment: For patients on eltrombopag therapy, use of Dimension [place] TBIL is not recommended. Performed By: #### L 100.0100, L3100.4810, L500.4050, L504.2610, L3300.1800 #### [facility] [address] [place], [address] BUN/CRE 19.8 RATIO Normal 10-20 [facility] Comment on above: Order Comment: 1 Performed By: #### L 100.0100, L3100.4810, L500.4050, L504.2610, L3300.1800 #### [facility] [address] [place], [address] CA,Total 9.2 mg/dL Normal 8.5-10.1 [facility] Comment on above: Order Comment: 1 Performed By: #### L 100.0100, L3100.4810, L500.4050, L504.2610, L3300.1800 #### [facility] [address] [place], [address] Chloride [Moles/Vol] 102 mmol/L Normal 98-107 [facility] Comment on above: Order Comment: 1 Performed By: #### L 100.0100, L3100.4810, L500.4050, L504.2610, L3300.1800 #### [facility] [address] [place], [address] CO2 [Moles/Vol] 33.0 mmol/L High 21.0-32.0 [facility] Comment on above: Order Comment: 1 Performed By: #### L 100.0100, L3100.4810, L500.4050, L504.2610, L3300.1800 #### [facility] [address] [place], [address] Creatinine [Mass/Vol] 1.01 mg/dL Normal 0.55-1.02 [facility] Comment on above: Order Comment: 1 Result Comment: The validity of the calculated GFR GFRAA in patients over 70 years has not been determined. Clinical correlation is essential. Performed By: #### L 100.0100, L3100.4810, L500.4050, L504.2610, L3300.1800 #### [facility] [address] [place], [address] EST GFR - AA 67 mL/min Normal >60 [facility] Comment on above: Order Comment: 1 Result Comment: Afri can Swedish GFR Calc Performed By: #### L 100.0100, L3100.4810, L500.4050, L504.2610, L3300.1800 #### [facility] [address] [place], [address] GAP 3 Low 5-15 [facility] Comment on above: Order Comment: 1 Performed By: #### L 100.0100, L3100.4810, L500.4050, L504.2610, L3300.1800 #### [facility] [address] [place], [address] GFR/1.73 sq M.predicted among non-blacks MDRD (S/P/Bld) [Vol rate/Area] 56 mL/min/{1.73_m2} Low >60 [facility] Comment on above: Order Comment: 1 Result Comment: Non- GFR Calc Performed By: #### L 100.0100, L3100.4810, L500.4050, L504.2610, L3300.1800 #### [facility] [address] [place], [address] Globulin (S) [Mass/Vol] 3.8 g/dL Normal 2.2-4.2 [facility] Comment on above: Order Comment: 1 Performed By: #### L 100.0100, L3100.4810, L500.4050, L504.2610, L3300.1800 #### [facility] [address] [place], [address] Glucose [Mass/Vol] 84 mg/dL Normal 74-106 [facility] Comment on above: Order Comment: 1 Performed By: #### L 100.0100, L3100.4810, L500.4050, L504.2610, L3300.1800 #### [facility] [address] [place], [address] Potassium [Moles/Vol] 3.4 mmol/L Low 3.5-5.1 [facility] Comment on above: Order Comment: 1 Performed By: #### L 100.0100, L3100.4810, L500.4050, L504.2610, L3300.1800 #### [facility] [address] [place], [address] Sodium [Moles/Vol] 138 mmol/L Normal 136-145 [facility] Comment on above: Order Comment: 1 Performed By: #### L 100.0100, L3100.4810, L500.4050, L504.2610, L3300.1800 #### [facility] [address] [place], [address] T PROT 7.4 g/dL Normal 6.4-8.2 [facility] Comment on above: Order Comment: 1 Performed By: #### L 100.0100, L3100.4810, L500.4050, L504.2610, L3300.1800 #### [facility] [address] [place], [address] Urea nitrogen [Mass/Vol] 20 mg/dL High 7-18 [facility] Comment on above: Order Comment: 1 Performed By: #### L 100.0100, L3100.4810, L500.4050, L504.2610, L3300.1800 #### [facility] [address] [place], [address] LDHon 02-27-2024 LDH 170 U/L Normal 84-246 [facility] Comment on above: Order Comment: 1 Performed By: #### L 100.0100, L3100.4810, L500.4050, L504.2610, L3300.1800 #### [facility] [address] [place], [address] Oncology Visit Reporton 01-13 Oncology Visit Report [facility] [address] [place] [address] OFFICE VISIT Date of Service: 01/24/24 1331 MR#: [id number] Acct: [id number] Name: MARY JEKNINS Mk Rep #: [id number] : 1940 From: Matt Nunez MD Age/Sex: 83/F Location: [facility] Status: Signed HPI Subjective Date of Service 01/24/24 Chief Complaint Metastatic carcinoid History of Present Illness 83-year-old female who presented in August 2020 with an acute onset abdominal pain and diarrhea, treated for diverticulitis. The diarrhea improved but she had some residual right upper quadrant abdominal pain. She has no prior history of malignancies, had a left breast biopsy more than 10 years earlier benign. 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 She is a never smoker, does not consume alcohol in excess no history of nonprescription drug abuse. She has a daughter with history of thyroid cancer, grandmother had ovarian cancer cousin had breast cancer. August 20, 2020 CT abdomen and pelvis: IMPRESSION: 4.7 cm x 4.4 cm x 4.7 cm hypoechoic solid mass in the left lobe of liver. Diffuse circumferential wall thickening of the cecum and proximal ascending colon. A neoplastic process should be ruled out. September 07, 2020 MRI abdomen: IMPRESSION: Innumerable hypervascular lesions throughout the liver concerning for metastatic disease from an unknown primary. The largest of these measures 5 cm and demonstrates internal hemorrhage. September 08, 2020 colonoscopy: Impressions : - The entire examined colon is normal on direct and retroflexion views. - Biopsies were taken with a cold forceps for histology in the cecum. - MICROSCOPIC DIAGNOSISA. Ileocecal valve, biopsy:No significant pathologic change..B. Right colon, biopsy:No pathologic change. September 25, 2020 Liver mass, CT-guided core biopsy:Metastatic neuroendocrine carcinoma, A low proliferation index is noted (Ki67 positive tumor cells are about 5%). A GI primary is favored RESULTS:AntibodyCloneResul [id number] RESULTS:ANTIBODY /CLONE RESULTAE1-3 (AE1/AE3/PCK26) positiveCK7 (OV- TL12/30)negativeCK8 (19shdqH36)igzzjckxGM97 (KS20.8) negativeCOX-2 (SP21) positiveCDX2 (NRQ7454F) positiveS-100 (4C4.9) ozebvkpgQV09 (123C3.D5) positiveChromo (LK2H10) positiveSynapto (polyclonal) positiveNSE Neuron Specific EnolasepositiveTTF-1 (8G7G3/1) negativeNapsin A (Rabbit Polyclonal) jfryupunH24 (BC28)negativeKi-67 (30-9) positive, 5% October 13, 2020 PET/CT: FINDINGS: 1. A distinct nodular focus of enhanced FDG uptake is observed in the right upper pelvic mesentery associated with the proximal ascending colon, generating a calculated maximal standard uptake value of 4.2. The maximal axial diameter of the corresponding metabolic abnormality on review of CT of the abdomen and pelvis dated 10/13/20 is 21.5-mm (AP). 2. Mild increased glucose concentration is observed in the right thoracic perihilum generating a calculated maximal standard uptake value of 1.3. Quantitative criteria for neoplasm are not fulfilled. 3. Normal physiologic distribution of the radiopharmaceutical is apparent in the hepatic (3.1) and splenic parenchyma, both renal units, bladder and visualized intestinal tract. Radiopharmaceutical is defined in the remaining visualized gastrointestinal tract. The visualized portion of the cerebral cortical-subcortical structures demonstrate symmetric and preserved glucose metabolism. Pertinent CT findings are as follows: CHEST: There is atherosclerotic calcification defined in the thoracic aorta without evidence of dilatation-aneurysm formation. Coronary arterial calcification is observed. Bilateral axillary soft tissue densities with fatty hilus, subcentimeter in presentation are non-glucose avid. There are no parenchymal densities-nodules defined in the right and left hemithorax with discernible increased glucose concentration. ABDOMEN AND PELVIS: An attenuation abnormality defined in the left lobe of the hepatic parenchyma demonstrates no evidence of quantitatively significant increased FDG uptake. There is atherosclerotic calcification defined in the abdominal aorta without evidence of dilatation-aneurysm formation. Pelvic arterial calcification is demonstrated. Bilateral inguinal soft tissue densities with fatty hilus are ametabolic. The uterus appears surgically absent. SKELETAL: Degenerative changes are noted in the cervical, thoracic and lumbar spine without evidence of increased radiopharmaceutical concentration. IMPRESSION: 1. Increased FDG distribution noted in the region of the proximal ascending colon may be further investigated with direct visualization secondary to the nodular presentation and quantitative degree of uptake. (Doyanet et al, Journal of Nuclear Medicine, (more content not included)... Normal [facility] US SOFT TISSUE HEAD & NE CK REAL TIME [facility] 01-12-2024 Radiology Study observation (narrative) U [facility] US SOFT TISSUE HEAD & NE CK REAL TIME [facility] 01-10-2024 Esme Perez MD 01/12/2024 5:48 PM THYROID ULTRASOUND: Thyroid Ultrasound Note Real-time, grayscale ultrasound evaluation of the neck was performed at the bedside in transverse and longitudinal orientations using a high-resolution linear array transducer. Color Doppler was utilized to assess vascular flow. Echotexture of the thyroid gland is homogeneous. ISTHMUS: Isthmus is normal in size. RIGHT LOBE: The right lobe of the thyroid is normal in size. There is a isoechoic solid and cystic nodule located at mid pole measuring 0.7 x 0.8 x 1.0 cm. There is no calcification or border irregularities. There are additional smaller cystic nodules at the upper pole. LEFT LOBE: The left lobe of the thyroid is normal in size. There is a isoechoic mixed nodule located at upper pole measuring 0.3 x 0.4 x 0.7 cm. There is no calcification or border irregularities. LYMPH NODES: The neck was examined for nodes bilaterally. Several benign appearing lymph nodes were identified along the jugular veins bilaterally. [facility] CT CHEST WITHOUT CONTRASTon 01-04-2024 CT CHEST WITHOUT CONTRAST EXAM: CT CHEST WITHOUT CONTRAST, 01/01/2024 11:14 AM COMPARISON: CT CHEST WITHOUT [...] adenopathy within limits of noncontrast CT chest. Normal [facility] CBC AND ELECTRONIC DIFFon Basophils (Bld) [#/Vol] 0.10 10*3/uL 0.00 - 0.15 K/uL [facility] Basophils/100 WBC (Bld) 1.3 % [facility] Differential cell count method Nom (Bld) Electronic Differential [facility] Eosinophils (Bld) [#/Vol] 0.21 10*3/uL 0.00 - 0.42 K/uL [facility] Eosinophils/100 WBC (Bld) 2.6 % [facility] Erythrocyte distribution width (RBC) [Ratio] 16.9 % High 10.8 - 14.9 % [facility] Hematocrit (Bld) [Volume fraction] 36.8 % 34.9 - 44.3 % [facility] Hemoglobin (Bld) [Mass/Vol] 11.5 g/dL 11.4 - 15.2 g/dL [facility] Immature granulocytes (Bld) [#/Vol] K/uL NINF - 0.08 K/uL [facility] Immature granulocytes/100 WBC (Bld) 0.3 % [facility] Interpretation and review of laboratory results Abnormal [facility] Lymphocytes (Bld) [#/Vol] 1.74 10*3/uL 1.16 - 3.51 K/uL [facility] Lymphocytes/100 WBC (Bld) 21.9 % [facility] MCH (RBC) [Entitic mass] 25.7 pg Low 25.9 - 33.9 pg [facility] MCHC (RBC) [Mass/Vol] 31.3 g/dL Low 31.4 - 35.9 g/dL [facility] MCV (RBC) [Entitic vol] 82.3 fL 79.6 - 97.7 fL [facility] Monocytes (Bld) [#/Vol] 0.68 10*3/uL 0.22 - 0.87 K/uL [facility] Monocytes/100 WBC (Bld) 8.6 % [facility] Neutrophils (Bld) [#/Vol] 5.19 10*3/uL 1.64 - 7.28 K/uL [facility] Nucleated RBC/100 WBC (Bld) [Ratio] 0.0 % NINF [facility] Platelet mean volume (Bld) [Entitic vol] 10.4 fL 8.5 - 12.2 fL [facility] Platelets (Bld) [#/Vol] 292 10*3/uL 150 - 393 K/uL [facility] RBC (Bld) [#/Vol] 4.47 10*6/uL [facility] Segmented neutrophils/100 WBC (Bld) 65.3 % [facility] WBC (Bld) [#/Vol] 7.94 10*3/uL 3.99 - 11.19 K/uL [facility] Basophils (Bld) [#/Vol] 0.10 10*3/uL Normal 0.00-0.15 [facility] Comment on above: Performed By: #### L [id number] #### [facility] (DEFAULT) [address] [place] [address] Basophils/100 WBC (Bld) 1.3 % Normal [facility] Comment on above: Performed By: #### L [id number] #### [facility] (DEFAULT) [address] [place] [address] DIFF STATUS Electronic Differential Normal [facility] Comment on above: Performed By: #### L [id number] #### [facility] (DEFAULT) [address] [place] [address] Eosinophils (Bld) [#/Vol] 0.21 10*3/uL Normal 0.00-0.42 [facility] Comment on above: Performed By: #### L [id number] #### [facility] (DEFAULT) [address] [place] [address] Eosinophils/100 WBC (Bld) 2.6 % Normal [facility] Comment on above: Performed By: #### L [id number] #### [facility] (DEFAULT) [address] [place] [address] Hematocrit (Bld) [Volume fraction] 36.8 % Normal 34.9-44.3 [facility] Comment on above: Performed By: #### L [id number] #### [facility] [place] (DEFAULT) [address] [address] Hemoglobin (Bld) [Mass/Vol] 11.5 g/dL Normal 11.4-15.2 [facility] Comment on above: Performed By: #### L [id number] #### [facility] (DEFAULT) [address] [address] Immature Grans % 0.3 % Normal [facility] Comment on above: Performed By: #### L [id number] #### [facility] (DEFAULT) [address] [address] Immature Grans Absolute < Normal <=0.08 [facility] Comment on above: Performed By: #### L [id number] #### [facility] (DEFAULT) [address] [address] Lymphocytes (Bld) [#/Vol] 1.74 10*3/uL Normal 1.16-3.51 [facility] Comment on above: Performed By: #### L [id number] #### [facility] (DEFAULT) [address] [address] Lymphocytes/100 WBC (Bld) 21.9 % Normal [facility] Comment on above: Performed By: #### L [id number] #### [facility] (DEFAULT) [address] [address] MCV (RBC) [Entitic vol] 82.3 fL Normal 79.6-97.7 [facility] Comment on above: Performed By: #### L [id number] #### [facility] (DEFAULT) [address] [address] Mean Cell Hgb 25.7 pg Low 25.9-33.9 [facility] Comment on above: Performed By: #### L [id number] #### [facility] (DEFAULT) [address] [address] Mean Cell Hgb Conc 31.3 g/dL Low 31.4-35.9 [facility] Comment on above: Performed By: #### L [id number] #### [facility] (DEFAULT) [address] [address] Monocytes (Bld) [#/Vol] 0.68 10*3/uL Normal 0.22-0.87 [facility] Comment on above: Performed By: #### L [id number] #### [facility] (DEFAULT) [address] [place] [address] Monocytes/100 WBC (Bld) 8.6 % Normal [facility] Comment on above: Performed By: #### L [id number] #### [facility] (DEFAULT) [address] [address] Nucleated RBC 0.0 /100 WBC Normal <=0.2 [facility] Comment on above: Performed By: #### L [id number] #### [facility] (DEFAULT) [address] [place] [address] Platelet mean volume (Bld) [Entitic vol] 10.4 fL Normal 8.5-12.2 [facility] Comment on above: Performed By: #### L [id number] #### [facility] (DEFAULT) [address] [address] Platelets (Bld) [#/Vol] 292 10*3/uL Normal 150-393 [facility] Comment on above: Performed By: #### L [id number] #### [facility] (DEFAULT) [address] [address] RBC (Bld) [#/Vol] 4.47 10*6/uL Normal 3.91-5.04 [facility] Comment on above: Performed By: #### L [id number] #### [facility] [place] (DEFAULT) [address] [address] RBC Distribution 16.9 % High 10.8-14.9 [facility] Comment on above: Performed By: #### L [id number] #### [facility] [place] (DEFAULT) [address] [place] [address] Segs + Bands Auto 65.3 % Normal [facility] Comment on above: Performed By: #### L [id number] #### [facility] (DEFAULT) [address] [place] [address] Segs + Bands,Absolute Auto 5.19 K/uL Normal 1.64-7.28 [facility] Comment on above: Performed By: #### L [id number] #### [facility] (DEFAULT) [address] [place] [address] WBC (Bld) [#/Vol] 7.94 10*3/uL Normal 3.99-11.19 [facility] Comment on above: Performed By: #### L [id number] #### [facility] (DEFAULT) [address] [place] [address] CHROMOGRANIN Aon 01-01-2024 Chromogranin A 364 ng/mL High <93 [facility] Comment on above: Result Comment: Impa ired renal or hepatic function or treatment with proton pump inhibitors may result in artifactual elevations of Chromogranin A. ADDITIONAL INFORMATION The testing method is a homogeneous time-resolved immunofluorescent assay manufactured by [employer] and performed on the [employer] Kryptor Compact Plus. Values obtained with different assay [...] examination and other findings. Test Performed by: [facility] [address] [place] [address] Fabrication Welder: Lizzy Ring Ph.D.; CLIA# [id number] Performed By: #### L [id number] #### [facility] (DEFAULT) [address] [place] [address] 01-01-2024 Albumin [Mass/Vol] 4.3 g/dL 3.5 - 5.0 g/dL [facility] ALP [Catalytic activity/Vol] 326 U/L High 32 - 126 U/L [facility] ALT [Catalytic activity/Vol] 25 U/L 9 - 48 U/L [facility] Anion gap [Moles/Vol] 12 mmol/L 7 - 17 mmol/L [facility] AST [Catalytic activity/Vol] 38 U/L 10 - 39 U/L [facility] Bilirubin [Mass/Vol] 0.6 mg/dL NINF - 1.5 mg/dL [facility] Calcium [Mass/Vol] 9.7 mg/dL 8.6 - 10. 5 mg/dL [facility] Chloride [Moles/Vol] 102 mmol/L 98 - 10 8 mmol/L [facility] CO2 [Moles/Vol] 28 mmol/L 21 - 31 mmol/L [facility] Creatinine [Mass/Vol] 1.00 mg/dL 0.50 - 1.20 mg/dL [facility] eGFR, CKD-EPI, Female 56 Low - PINF [facility] Comment on above: Reported eGFR is bas ed on the CKD-EPI 2020 equation using creatinine, age, and sex. Glucose [Mass/Vol] 102 mg/dL High 70 - 99 mg/dL [facility] Interpretation and review of laboratory results Abnormal [facility] Osmolality Calc [Osmolality] 294 [facility] Potassium [Moles/Vol] 3.8 mmol/L 3.5 - 5.0 mmol/L [facility] Protein [Mass/Vol] 7.6 g/dL 6.4 - 8.3 g/dL [facility] Sodium [Moles/Vol] 138 mmol/L 135 - 145 mmol/L [facility] Urea nitrogen [Mass/Vol] 28 mg/dL High 7 - 25 mg/dL [facility] Urea nitrogen/Creatinine [Mass ratio] 28 mg/mg [facility] Albumin [Mass/Vol] 4.3 g/dL Normal 3.5-5.0 [facility] Comment on above: Performed By: #### Y CHGRA #### [facility] (DEFAULT) [address] [place] [address] ALP [Catalytic activity/Vol] 326 U/L High 32-126 [facility] Comment on above: Performed By: #### Y CHGRA #### [facility] (DEFAULT) [address] [place] [address] ALT [Catalytic activity/Vol] 25 U/L Normal 9-48 [facility] Comment on above: Performed By: #### Y CHGRA #### [facility] (DEFAULT) [address] [place] [address] Anion gap [Moles/Vol] 12 mmol/L Normal 7-17 [facility] Comment on above: Performed By: #### Y CHGRA #### [facility] (DEFAULT) [address] [place] [address] AST [Catalytic activity/Vol] 38 U/L Normal 10-39 [facility] Comment on above: Performed By: #### Y CHGRA #### [facility] (DEFAULT) [address] [place] [address] Bilirubin [Mass/Vol] 0.6 mg/dL Normal <1.5 [facility] Comment on above: Performed By: #### Y CHGRA #### [facility] (DEFAULT) [address] [place] [address] Calcium [Mass/Vol] 9.7 mg/dL Normal 8.6-10.5 [facility] Comment on above: Performed By: #### Y CHGRA #### [facility] (DEFAULT) [address] [address] Chloride [Moles/Vol] 102 mmol/L Normal 98-108 [facility] Comment on above: Performed By: #### Y PETERGRA #### [facility] (DEFAULT) [address] [address] CO2 [Moles/Vol] 28 mmol/L Normal 21-31 [facility] Comment on above: Performed By: #### Y PETERGRA #### [facility] (DEFAULT) [address] [address] Creatinine [Mass/Vol] 1.00 mg/dL Normal 0.50-1.20 [facility] Comment on above: Performed By: #### Maria G GARCIAA #### [facility] (DEFAULT) [address] [address] GFR/1.73 sq M.predicted among non-blacks MDRD (S/P/Bld) [Vol rate/Area] 56 mL/min/{1.73_m2} Low >=60 [facility] Comment on above: Result Comment: Repo rted eGFR is based on the CKD-EPI 2020 equation using creatinine, age, and sex. Performed By: #### Maria G TADEO #### [facility] (DEFAULT) [address] [address] Glucose [Mass/Vol] 102 mg/dL High 70-99 [facility] Comment on above: Performed By: #### Maria G GREENGRA #### [facility] (DEFAULT) [address] [address] Osmolality [Osmolality] 294 mosm/kg Normal 278-305 [facility] Comment on above: Performed By: #### Y CHGRA #### [facility] (DEFAULT) [address] [address] Potassium [Moles/Vol] 3.8 mmol/L Normal 3.5-5.0 [facility] Comment on above: Performed By: #### Y CHGRA #### [facility] (DEFAULT) [address] [place] [address] Protein [Mass/Vol] 7.6 g/dL Normal 6.4-8.3 [facility] Comment on above: Performed By: #### Y CHGRA #### [facility] (DEFAULT) [address] [place] [address] Sodium [Moles/Vol] 138 mmol/L Normal 135-145 [facility] Comment on above: Performed By: #### Y CHGRA #### [facility] (DEFAULT) [address] [place] [address] Urea nitrogen [Mass/Vol] 28 mg/dL High 09-06 [facility] Comment on above: Performed By: #### Y CHGRA #### [facility] (DEFAULT) [address] [place] [address] Urea nitrogen/Creatinine [Mass ratio] 28 mg/mg Normal [facility] Comment on above: Performed By: #### Y CHGRA #### [facility] (DEFAULT) [address] [address] GASTRIN - NON-STIMULATEDon 03-02-2023 Gastrin 671 pg/mL High [facility] Comment on above: Result Comment: REFERENCE VALUE <100 Reference ranges valid for >= 8 hour fast. Test Performed by: [facility] [address] [place] [address] Fabrication Welder: Lizzy Ring Ph.D.; CLIA# [id number] Performed By: #### L [id number] #### [facility] (DEFAULT) [address] [address] LACTATE DEHYDROGENASEon 11- Interpretation and review of laboratory results Normal [facility] LDH Lactate to pyruvate reaction [Catalytic activity/Vol] 124 U/L 100 - 190 U/L [facility] LD Total 124 U/L Normal 100-190 [facility] Comment on above: Performed By: #### Y CHGRA #### [facility] (DEFAULT) [address] [place], [place] [id number] MR Abdomen WO and W contrast Irene 01-01-2024 IMPRESSION: Previously measured liver lesions are grossly stable. I personally viewed and interpreted these images and I have reviewed and approved this report. OLOGY EXAM: MRI ABDOMEN WI TH AND WITHOUT CONTRAST, 01/01/2024 11:07 AM CLINICAL INDICATIONS: neuroendocrine [...] with more pronounced washout on today's study (/46), previously measured 1.1 x 1.0 cm. Few [...] or wall thickening. Second segment duodenal diverticula. Peritoneum/retroperitoneum : No ascites. Lymph nodes: No enlarged or morphologically abnormal lymph nodes. Vasculature: The abdominal aorta is normal in course and caliber. Patent celiac and superior mesenteric arteries. Patent portal, splenic, and superior mesenteric veins. Body Wall: Normal. Bones: Levoscoliosis of the lumbar spine with multilevel degenerative changes. No aggressive lesion. RADIOLOGY Nino Bob M D - 01/01/2024 EXAM: MRI ABDOMEN WITH AND WITHOUT CONTRAST, 01/01/2024 11:07 AM CLINICAL INDICATIONS: neuroendocrine [...] or wall thickening. Second segment duodenal diverticula. Peritoneum/retroperitoneum : No ascites. Lymph nodes: No enlarged or morphologically abnormal lymph nodes. Vasculature: The abdominal aorta is normal in course and caliber. Patent celiac and superior mesenteric arteries. Patent portal, splenic, and superior mesenteric veins. Body Wall: Normal. Bones: Levoscoliosis of the lumbar spine with multilevel degenerative changes. No aggressive lesion. IMPRESSION IMPRESSION: Previously measured liver lesions are grossly stable. I personally viewed and interpreted these images and I have reviewed and approved this report. [facility] Radiology Study observation (narrative) [facility] MR Abdomen WO and W contrast IVOrdered By: Nino Bob on 01-01-2024 [facility] MRI ABDOMEN WITH AND WITHOUT CONTRASTon 01-01-2024 MRI ABDOMEN WITH AND WITHOUT CONTRAST EXAM: MRI ABDOMEN WITH AND WITHOUT CONTRAST, 01/01/2024 11:07 AM CLINICAL INDICATIONS: neuroendocrine [...] or wall thickening. Second segment duodenal diverticula. Peritoneum/retroperitoneum : No ascites. Lymph nodes: No enlarged or [...] I have reviewed and approved this report. Normal [facility] No [facility] EDUREon 12-20-2023 INVASIVE CARDIOVASCULAR PROCEDURE Severe hypertension with SBP above 200 on arrival to the laborer rags and remained above 190 despite sedation. 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 Recommendations: - Adequate blood pressure control. - Aggressive risk factors modification. Table formatting from the original result was not included. Images from the original result were not included. [facility] Invasive Cardiology Cath Procedure Ordering Physician: TIFFANY BABIN Order #: [id number] Study Date: 12/15/2023 Patient Information Name MRN Description Mary Jenkins [id number] y.o. female Location Name Address [address] [address] Physicians Panel Physicians Referring Physician Case Authorizing Physician Fifi Concepcion MD (Primary) MD Tiffany Oliver MBBS Procedures LEFT HEART CATHETERIZATION CORONARY [...] SBP above 200 on arrival to the laborer rags and remained above 190 despite sedation. 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 Recommendations: - Adequate blood pressure control. - Aggressive risk factors modification. Medical History Diagnosis Date Comment Source Arrhythmia atrial fibrillation Essential hypertension, benign History of cancer Hyperlipidemia Rheumatic fever Medical History - Pertinent Negatives Pertinent Negative Date Comment Source Asthma 11/06/2023 Diabetes mellitus 11/06/2023 ND (myocardial infarction) 11/06/2023 Pacemaker 11/06/2023 Seizure 11/06/2023 Procedure The risks and alternatives of the procedure and sedation were explained. Informed consent was obtained. The patient was brought to the laborer rags and placed on the table. The planned [...] CLOSURE PERCLOSE PROSTYLE SUTURE MEDIATE REPAIR - [id number] Implanted Fluoro Dose Fluoro Dose: 7.5 Gy-cm^2 Complications Complications documented before study signed (12/20/2023 9:23 AM) No complications were associated with this study. Documented by Fifi Concepcion MD - 12/15/2023 9:01 AM Cardiac Ship Wirer Attending Physician Statement and Signature I have [...] AM Medical History Prompt Yes/No Comments Date ND No 11/06/2023 Hypertension Yes Stroke Unanswered Vascular Disease Unanswered COPD Unanswered Diabetes No 11/06/2023 Surgical History Prompt Yes/No Procedure Laterality Comments Date CABG Unanswered Coronary Artery Bypass Graft Tobacco Use Never smoked or used smokeless tobacco. SNOMED CT?: Never smoked tobacco ([id number]). Last Resulted Components Date/Time Component Value Lab Status 12/15/23 0720 CREATSERUM 0.66 Final result 12/15/23 0720 HGB 11.5 Final result Normal [facility] CBC,PLATELETSon 12-15-2023 Erythrocyte distribution width (RBC) [Ratio] 16.8 % High 10.8 - 14.9 % [facility] Hematocrit (Bld) [Volume fraction] 36.1 % 34.9 - 44.3 % [facility] Hemoglobin (Bld) [Mass/Vol] 11.5 g/dL 11.4 - 15.2 g/dL [facility] Interpretation and review of laboratory results Abnormal [facility] MCH (RBC) [Entitic mass] 25.8 pg Low 25.9 - 33.9 pg [facility] MCHC (RBC) [Mass/Vol] 31.9 g/dL 31.4 - 35.9 g/dL [facility] MCV (RBC) [Entitic vol] 80.9 fL 79.6 - 97.7 fL [facility] Platelet mean volume (Bld) [Entitic vol] 10.3 fL 8.5 - 12.2 fL [facility] Platelets (Bld) [#/Vol] 281 10*3/uL 150 - 393 K/uL [facility] RBC (Bld) [#/Vol] 4.46 10*6/uL [facility] WBC (Bld) [#/Vol] 6.75 10*3/uL 3.99 - 11.19 K/uL [facility] CHEM 6 (LYTES, BUN CREA)on 02-13-2023 Anion gap [Moles/Vol] 13 mmol/L 7 - 17 mmol/L [facility] Chloride [Moles/Vol] 106 mmol/L 98 - 10 8 mmol/L [facility] CO2 [Moles/Vol] 24 mmol/L 21 - 31 mmol/L [facility] Creatinine [Mass/Vol] 0.66 mg/dL 0.50 - 1.20 mg/dL [facility] eGFR, CKD-EPI, Female 88 - PINF [facility] Comment on above: Reported eGFR is bas ed on the CKD-EPI 2020 equation using creatinine, age, and sex. Potassium [Moles/Vol] 3.5 mmol/L 3.5 - 5.0 mmol/L [facility] Sodium [Moles/Vol] 139 mmol/L 135 - 145 mmol/L [facility] Urea nitrogen [Mass/Vol] 19 mg/dL 7 - 25 mg/dL [facility] Urea nitrogen/Creatinine [Mass ratio] 29 mg/mg [facility] Cardiac catheterization stud yon 12-15-2023 [facility] Radiology Study observation (narrative) [facility] PROTIME-INRon 12-15-2023 INR Coag (Bld) [Relative time] 1.1 {INR} 0.9 - 1.1 [facility] Interpretation and review of laboratory results Abnormal [facility] PT Coag (PPP) [Time] 14.3 s High [facility] ECGon 12-09-2023 [facility] Laboratory - Chemistry and C hemistry - challengeon 12-08-2023 Albumin [Mass/Vol] 4.2 g/dL 3.5 - 5.0 g/dL [facility] ALP [Catalytic activity/Vol] 207 U/L High 32 - 126 U/L [facility] ALT [Catalytic activity/Vol] 26 U/L 9 - 48 U/L [facility] AST [Catalytic activity/Vol] 38 U/L 10 - 39 U/L [facility] Bilirubin [Mass/Vol] 0.7 [facility] Bilirubin.direct [Mass/Vol] 0.2 mg/dL NINF - 0.3 mg/dL [facility] Protein [Mass/Vol] 7.3 g/dL 6.4 - 8.3 g/dL [facility] Cholesterol [Mass/Vol] 210 mg/dL High NINF - 200 mg/dL [facility] Comment on above: [<200 mg/dL: Desirab le] [200-239 mg/dL: Borderline High] [>239 mg/dL: High] Cholesterol in HDL [Mass/Vol] 62 mg/dL 40 - PINF mg/dL [facility] Comment on above: [<40 mg/dL: Low (Hig h Risk)] [>59 mg/dL: High (Low Risk)] Cholesterol in LDL [Mass/Vol] 125 mg/dL High 0 - 99 mg/dL [facility] Comment on above: [<100 mg/dL: Optimal ] [100-129 mg/dL: Near Optimal] [130-159 mg/dL: Borderline High] [160-189 mg/dL: High] [>189 mg/dL: Very High] Cholesterol non HDL [Mass/Vol] 148 mg/dL High NINF - 130 mg/dL [facility] Cholesterol.total/Cho lesterol in HDL [Mass ratio] 3.4 {ratio} NINF - 4.5 [facility] Triglyceride [Mass/Vol] 114 mg/dL NINF - 150 mg/dL [facility] Comment on above: [<150 mg/dL: Desirab le] [150-199 mg/dL: Borderline] [200-499 mg/dL: High] [>500 mg/dL: Very High] No Panel Informationon 12-07 Interpretation and review of laboratory results Abnormal [facility] Interpretation and review of laboratory results Abnormal [facility] SPECT Heart perfusion at res t and W stress and W radionuclide IVOrdered By: Evelyn Harrington on 11-06-2023 % APHRMAX 100 % [facility] Work Phone: APHRMAX 139 bpm [facility] Work Phone: Baseline DBP 58 mmHg [facility] Work Phone: Baseline DBP 60 mmHg [facility] Work Phone: Baseline HR 79 bpm [facility] Work Phone: Baseline HR 94 bpm [facility] [facility] Work Phone: Baseline SBP 142 mmHg [facility] Work Phone: Baseline SBP 140 mmHg [facility] Work Phone: Body surface area Derived from formula 1.67 m2 [facility] Work Phone: chronotropic augmentation [facility]: NM ED vol idx 27.00 mL/m2 [facility] Work Phone: NM ES vol idx 7.00 mL/m2 [facility] Work Phone: Nuc Stress EF 76.00 % [facility] Work Phone: Peak DBP 68 mmHg [facility] Work Phone: Peak HR 139 bpm [facility] Work Phone: Peak SBP 144 mmHg [facility] Work Phone: Rate Pressure Product [facility] Work Phone: ST Depression (mm) 1.00 mm [facility] Work Phone: [facility] Work Phone: SPECT Heart perfusion at res t and W stress and W radionuclide Irene 11-06-2023 Overall: No evidence of ischemia. Small apical anterior fixed defect consistent with prior infarct vs breast attenuation artifact. PAC's and short run of atrial tachycardia with vasodilator stress. Coronary artery and aortic calcification seen on CT portion. Nuclear portion of the exam: No evidence of ischemia Small-size, mild severity fixed apical anterior defect that could be prior infarct vs breast attenuation artifact. Normal left ventricular size and hyperdynamic function with ejection fraction >70%. No TID. ECG portion of the exam: Baseline ECG: Sinus rhythm, PRWP, PVC and PAC's No diagnostic ST changes for ischemia with vasodilator stress (peak HR 139 (100% target HR)) - there is [address] depression only in lead II with vasodilator stress, which is equivocal / non-diagnostic for ischemia. There are frequent PAC's and short run of atrial tachycardia with vasodilator stress. CT portion of the scan: CT images were obtained for attenuation correction purposes only. Diagnostic quality of the images is limited. There are aortic and coronary artery calcification (CAC) seen, although the study is not optimized for CAC detection or quantification. Study Details Overall study quality was good. Pharmacological nuclear stress test performed using 1-day rest/stress protocol. Regadenoson infusion given over 10 seconds. Resting Single-Photon Emission Computed Tomography (SPECT) three axis myocardial perfusion images of the heart were acquired with an acquisition time of 08:47 EDT. Post-stress Single-Photon Emission Computed Tomography (SPECT) three axis myocardial perfusion images of the heart were acquired with an acquisition time of 10:32 EDT. Gated SPECT images obtained. Frame rate: 8 frames/sec. Stress SPECT CT images were obtained. Imaging system used: [facility]. Stress Findings A pharmacological stress test was performed using regadenoson without low-level exercise. The patient reported no symptoms prior to the stress test. The patient reported dyspnea and fatigue during the stress test. The patient reached the end of the protocol. 75mg Aminophylline administered after 4:00 circulation time to reverse effects of continued dyspnea in setting of hypoxia (SPO2: 86-87%) on room air. ECG Baseline ECG is normal with normal sinus rhythm. Baseline ECG shows arrhythmia: PAC and PVC. Horizontal ST segment depression of 1.00 mm was noted during stress in lead II, returning to baseline after less than 2 minutes of recovery. Arrhythmias during stress: frequent premature atrial contractions.Recovery ECG returned to baseline. Arrhythmias during recovery: frequent premature atrial contractions, rare premature ventricular contractions. ECG results equivocal. Arrhythmias were not significant. Nuclear Study Quality Overall image quality is good. There are no artifacts present. Stress Function Defect 1 Normal wall motion. Rest Function Defect 1 Normal wall motion. Isotope Admin The isotope used for nuclear imaging was technetium sestamibi.No radiopharmaceutical dose was extravasated. Nuclear Stress Gating Stress perfusion cavity size was 48 mL. Resting perfusion cavity size was 47 mL. The stress/rest perfusion ratio is 1.02. There is no evidence of transient ischemic dilation (TID). Ejection fraction is 76.00%. Note that ejection fraction is greater than 70%. End diastolic index is 27.00 mL/m2. End systolic index is 7.00 mL/m2. Left ventricular cavity size is normal. Lung to heart ratio is normal determined by sestamibi (less than 0.44). The lung to heart ratio is 0.31. Perfusion Scoring Stress Summed Score: 1 Percent Normal: 1.47% Mild count reduction in the following segments: apical anterior. All other segments are normal. Perfusion Scoring Resting Summed Score: 1 Percent Normal: 1.47% Mild count reduction in the following segments: apical anterior. All other segments are normal. Perfusion Scoring Attenuation Correction Summed Score: 1 Percent Normal: 1.47% Mild count reduction in the following segments: apical anterior. All other segments are normal. [facility] Radiology Study observation (narrative) [facility] Laboratory - Chemistry and C hemistry - challengeon 11-01-2023 Natriuretic peptide B (Bld) [Mass/Vol] 29 pg/mL 0 - 100 pg/mL [facility] No Panel Informationon 10-31 Interpretation and review of laboratory results Normal [facility] CNCOon 08-31-2023 CNCO Letter Text Normal [facility] CNPNon 08-31-2023 RICHARDN Telephone (SPAGWO) -- MARY JENKINS ([id number]) 1940 F Date Time Provider Department 08/31/23 HUSSEIN MANNING During your visit today, we recorded the following information about you: Breanne Marquez 08/31/2023 3:57 PM Signed No Show Documentation Mary Jenkins no showed for an appointment on 08/31/2023 with Hussein Manning APRN.CNP at 1:00pm. She was scheduled for new patient evaluation. I called and LVM with the patient regarding her missed appointment. Resources discussed/offered to patient: rescheduling No show determined to be fault of patient: N/A This is the patients first no show in the last 12 months. Letter mailed : Yes Is this the Third or Fourth No Show? No Breanne Marquez August 31, 2023 3:56 PM Allergies As of Date: 08/31/2023 Noted Allergy Reaction DIATRIZOATE MEGLUMINE 05/16/2018 10 - Anaphylaxis Comments: Takes prednisone AND benadryl prior to CT scans as pre-meds PENICILLIN G 08/19/2010 16 - Unknown Comments: Other reaction(s): Shortness of breath, edema Date Reviewed: 06/06/2023 Reviewed by: Mariia Lenz MA - Fully Assessed Reason for Visit: No Show [1558] Prescriptions as of 08/31/2023 - amLODIPine (NORVASC) 5 mg tablet Take 1 tablet by mouth every afternoon. - apixaban (ELIQUIS) 5 mg tab(s) Take 1 tablet by mouth every 12 hours. - atorvastatin (LIPITOR) 20 mg tablet Take 0.5 tablets by mouth every afternoon. - Cholecalciferol, Vitamin D3, 50 mcg (2,000 unit) cap Take 1 capsule by mouth once daily. - flecainide (TAMBOCOR) 100 mg tablet Take 1 tablet by mouth every 12 hours. - lisinopril (ZESTRIL) 40 mg tablet Take 1 tablet by mouth every afternoon. - metoprolol succinate ER (TOPROL XL) 100 mg Take 1 tablet by mouth every afternoon. - octreotide LAR (SANDOSTATIN LAR DEPOT) 20 mg Depot INJ Inject 20 mg intramuscularly. - risedronate (ACTONEL) 35 mg tablet Take 35 mg by mouth one time a week. - sertraline (ZOLOFT) 100 mg tablet TAKE 1 AND 1/2 (ONE AND ONE-HALF) TABLETS BY MOUTH EVERY DAY Problem List As Of Date 08/31/2023 Noted Resolved Chronic atrial fibrillation (HCC) [I48.20] 06/06/2023 Encounter Status:Closed by BREANNE MARQUEZ on 08/31/23 Normal [facility] COMPREHENSIVE METABOLIC PANE Bill 08-23-2023 Albumin [Mass/Vol] 3.7 g/dL 3.5 - 5.0 g/dL [facility] ALP [Catalytic activity/Vol] 614 U/L High 32 - 126 U/L [facility] ALT [Catalytic activity/Vol] 50 U/L High 9 - 48 U/L [facility] Anion gap [Moles/Vol] 12 mmol/L 7 - 17 mmol/L [facility] AST [Catalytic activity/Vol] 66 U/L High 10 - 39 U/L [facility] Bilirubin [Mass/Vol] 2.5 mg/dL High NINF - 1.5 mg/dL [facility] Calcium [Mass/Vol] 9.2 mg/dL 8.6 - 10. 5 mg/dL [facility] Chloride [Moles/Vol] 102 mmol/L 98 - 10 8 mmol/L [facility] CO2 [Moles/Vol] 28 mmol/L 21 - 31 mmol/L [facility] Creatinine [Mass/Vol] 0.68 mg/dL 0.50 - 1.20 mg/dL [facility] eGFR, CKD-EPI, Female 87 - PINF [facility] Comment on above: Reported eGFR is bas ed on the CKD-EPI 2020 equation using creatinine, age, and sex. Glucose [Mass/Vol] 103 mg/dL High 70 - 99 mg/dL [facility] Interpretation and review of laboratory results Abnormal [facility] Osmolality Calc [Osmolality] 289 [facility] Potassium [Moles/Vol] 4.0 mmol/L 3.5 - 5.0 mmol/L [facility] Protein [Mass/Vol] 7.6 g/dL 6.4 - 8.3 g/dL [facility] Sodium [Moles/Vol] 138 mmol/L 135 - 145 mmol/L [facility] Urea nitrogen [Mass/Vol] 13 mg/dL 7 - 25 mg/dL [facility] Urea nitrogen/Creatinine [Mass ratio] 19 mg/mg [facility] ANTI SMOOTH MUSCLE ANTIBODYO rdered By: Samantha Valle on 08-15-2023 Interpretation and review of laboratory results Abnormal [facility] Smooth muscle Ab IF (S) [Titer] Positive Abnormal Negative [facility] Smooth muscle Ab IF (S) [Titer] 1:80 Abnormal (none) [facility] CBC,PLATELETSon 08-15-2023 Erythrocyte distribution width (RBC) [Ratio] 16.9 % High 10.8 - 14.9 % [facility] Hematocrit (Bld) [Volume fraction] 35.1 % 34.9 - 44.3 % [facility] Hemoglobin (Bld) [Mass/Vol] 11.3 g/dL Low 11.4 - 15.2 g/dL [facility] Interpretation and review of laboratory results Abnormal [facility] MCH (RBC) [Entitic mass] 27.7 pg 25.9 - 33.9 pg [facility] MCHC (RBC) [Mass/Vol] 32.2 g/dL 31.4 - 35.9 g/dL [facility] MCV (RBC) [Entitic vol] 86.0 fL 79.6 - 97.7 fL [facility] Platelet mean volume (Bld) [Entitic vol] 10.8 fL 8.5 - 12.2 fL [facility] Platelets (Bld) [#/Vol] 252 10*3/uL 150 - 393 K/uL [facility] RBC (Bld) [#/Vol] 4.08 10*6/uL [facility] WBC (Bld) [#/Vol] 6.24 10*3/uL 3.99 - 11.19 K/uL [facility] CHEM 7 (LYTES,BUN,CREA,GLUC) on 08-15-2023 Anion gap [Moles/Vol] 16 mmol/L 7 - 17 mmol/L [facility] Chloride [Moles/Vol] 101 mmol/L 98 - 10 8 mmol/L [facility] CO2 [Moles/Vol] 26 mmol/L 21 - 31 mmol/L [facility] Creatinine [Mass/Vol] 0.54 mg/dL 0.50 - 1.20 mg/dL [facility] eGFR, CKD-EPI, Female - PINF [facility] Comment on above: Reported eGFR is bas ed on the CKD-EPI 2020 equation using creatinine, age, and sex. Glucose [Mass/Vol] 127 mg/dL High 70 - 99 mg/dL [facility] Osmolality Calc [Osmolality] 293 [facility] Potassium [Moles/Vol] 3.3 mmol/L Low 3.5 - 5.0 mmol/L [facility] Sodium [Moles/Vol] 140 mmol/L 135 - 145 mmol/L [facility] Urea nitrogen [Mass/Vol] 12 mg/dL 7 - 25 mg/dL [facility] Urea nitrogen/Creatinine [Mass ratio] 22 mg/mg [facility] HEPATIC FUNCTION PANELon Albumin [Mass/Vol] 3.0 g/dL Low 3.5 - 5.0 g/dL [facility] ALP [Catalytic activity/Vol] 361 U/L High 32 - 126 U/L [facility] ALT [Catalytic activity/Vol] 30 U/L 9 - 48 U/L [facility] AST [Catalytic activity/Vol] 47 U/L High 10 - 39 U/L [facility] Bilirubin [Mass/Vol] 3.5 mg/dL High NINF - 1.5 mg/dL [facility] Bilirubin.direct [Mass/Vol] 1.9 mg/dL High NINF - 0.3 mg/dL [facility] Protein [Mass/Vol] 6.0 g/dL Low 6.4 - 8.3 g/dL [facility] MAGNESIUMon 08-15-2023 Interpretation and review of laboratory results Normal [facility] Magnesium [Mass/Vol] 1.6 mg/dL 1.6 - 2 .6 mg/dL [facility] No Panel Informationon 08-14 Interpretation and review of laboratory results Abnormal [facility] PT,INR,PTTon 08-15-2023 aPTT Coag (PPP) [Time] 32.1 s [facility] INR Coag (Bld) [Relative time] 1.2 {INR} High 0.9 - 1.1 [facility] Interpretation and review of laboratory results Abnormal [facility] PT Coag (PPP) [Time] 15.6 s High [facility] Acute hepatitis 2000 panel ( S)on 08-14-2023 HAV IgM IA Ql Negative Negative [facility] HBV core IgG+IgM Ql (S) Negative Negative [facility] HBV core IgM Ql (S) Negative Negative [facility] HBV surface Ag Ql (S) Negative Negative [facility] HCV Ab Ql (S) Negative Negative [facility] Interpretation and review of laboratory results Normal [facility] CBC,PLATELETSon 08-14-2023 Erythrocyte distribution width (RBC) [Ratio] 16.9 % High 10.8 - 14.9 % [facility] Hematocrit (Bld) [Volume fraction] 30.4 % Low 34.9 - 44.3 % [facility] Hemoglobin (Bld) [Mass/Vol] 10.0 g/dL Low 11.4 - 15.2 g/dL [facility] Interpretation and review of laboratory results Abnormal [facility] MCH (RBC) [Entitic mass] 28.3 pg 25.9 - 33.9 pg [facility] MCHC (RBC) [Mass/Vol] 32.9 g/dL 31.4 - 35.9 g/dL [facility] MCV (RBC) [Entitic vol] 86.1 fL 79.6 - 97.7 fL [facility] Platelet mean volume (Bld) [Entitic vol] 10.8 fL 8.5 - 12.2 fL [facility] Platelets (Bld) [#/Vol] 305 10*3/uL 150 - 393 K/uL [facility] RBC (Bld) [#/Vol] 3.53 10*6/uL Low [facility] WBC (Bld) [#/Vol] 7.24 10*3/uL 3.99 - 11.19 K/uL [facility] CHEM 7 (LYTES,BUN,CREA,GLUC) on 08-14-2023 Anion gap [Moles/Vol] 15 mmol/L 7 - 17 mmol/L [facility] Chloride [Moles/Vol] 101 mmol/L 98 - 10 8 mmol/L [facility] CO2 [Moles/Vol] 27 mmol/L 21 - 31 mmol/L [facility] Creatinine [Mass/Vol] 0.73 mg/dL 0.50 - 1.20 mg/dL [facility] eGFR, CKD-EPI, Female 83 - PINF [facility] Comment on above: Reported eGFR is bas ed on the CKD-EPI 2020 equation using creatinine, age, and sex. Glucose [Mass/Vol] 119 mg/dL High 70 - 99 mg/dL [facility] Osmolality Calc [Osmolality] 292 [facility] Potassium [Moles/Vol] 3.5 mmol/L 3.5 - 5.0 mmol/L [facility] Sodium [Moles/Vol] 139 mmol/L 135 - 145 mmol/L [facility] Urea nitrogen [Mass/Vol] 16 mg/dL 7 - 25 mg/dL [facility] Urea nitrogen/Creatinine [Mass ratio] 22 mg/mg [facility] CMV BY PCR, QUANTITATIVE, BL OODon 08-14-2023 CMV DNA JEROMY+probe Qn (P) [facility] Interpretation and review of laboratory results Normal [facility] This test was perfor med using a real time CMV PCR assay. The dynamic range for this assay is 50-156,000,000 IU/mL. Results should be interpreted in conjunction with other clinical and laboratory. [facility] EBV BY PCR, QUANTITATIVE,BLO ODOrdered By: Blanca Wilde on 08-14-2023 EBV DNA JEROMY+probe (Unsp spec) [#/Vol] [facility] Interpretation and review of laboratory results Normal [facility] This test was perfor med using a real time PCR assay. The dynamic range for this assay is 1000-5,000,000 IU/mL. A result <1000 IU/mL does not rule out the presence of EBV DNA in quantities below the sensitivity of this assay. This test was developed and its performance characteristics determined by [facility]. It has not been cleared or approved by the FDA. The laboratory is regulated under CLIA as qualified to perform high-complexity testing. This test is used for clinical purposes. It should not be regarded as investigational or for research. [facility] HEPATIC FUNCTION PANELon Albumin [Mass/Vol] 3.0 g/dL Low 3.5 - 5.0 g/dL [facility] ALP [Catalytic activity/Vol] 354 U/L High 32 - 126 U/L [facility] ALT [Catalytic activity/Vol] 33 U/L 9 - 48 U/L [facility] AST [Catalytic activity/Vol] 48 U/L High 10 - 39 U/L [facility] Bilirubin [Mass/Vol] 4.1 mg/dL High NINF - 1.5 mg/dL [facility] Bilirubin.direct [Mass/Vol] 2.2 mg/dL High NINF - 0.3 mg/dL [facility] Protein [Mass/Vol] 6.2 g/dL Low 6.4 - 8.3 g/dL [facility] HEPATITIS C ANTIBODYOrdered By: Felisha Chambers on 08-14-2023 HCV Ab Ql (S) Negative Negative [facility] Interpretation and review of laboratory results Normal [facility] MAGNESIUMon 08-14-2023 Interpretation and review of laboratory results Normal [facility] Magnesium [Mass/Vol] 1.7 mg/dL 1.6 - 2 .6 mg/dL [facility] No Panel Informationon 08-13 Interpretation and review of laboratory results Abnormal [facility] PT,INR,PTTOrdered By: Devin Alvarez on 08-14-2023 aPTT Coag (PPP) [Time] 29.7 s [facility] Comment on above: Results inconsistent with previous results INR Coag (Bld) [Relative time] 1.2 {INR} High 0.9 - 1.1 [facility] Interpretation and review of laboratory results Abnormal [facility] PT Coag (PPP) [Time] 15.2 s High [facility] CBC,PLATELETSon 08-13-2023 Erythrocyte distribution width (RBC) [Ratio] 16.7 % High 10.8 - 14.9 % [facility] Hematocrit (Bld) [Volume fraction] 30.4 % Low 34.9 - 44.3 % [facility] Hemoglobin (Bld) [Mass/Vol] 10.0 g/dL Low 11.4 - 15.2 g/dL [facility] Interpretation and review of laboratory results Abnormal [facility] MCH (RBC) [Entitic mass] 28.3 pg 25.9 - 33.9 pg [facility] MCHC (RBC) [Mass/Vol] 32.9 g/dL 31.4 - 35.9 g/dL [facility] MCV (RBC) [Entitic vol] 86.1 fL 79.6 - 97.7 fL [facility] Platelet mean volume (Bld) [Entitic vol] 10.9 fL 8.5 - 12.2 fL [facility] Platelets (Bld) [#/Vol] 289 10*3/uL 150 - 393 K/uL [facility] RBC (Bld) [#/Vol] 3.53 10*6/uL Low [facility] WBC (Bld) [#/Vol] 10.35 10*3/uL 3.99 - 11.19 K/uL [facility] Erythrocyte distribution width (RBC) [Ratio] 16.5 % High 10.8 - 14.9 % [facility] Hematocrit (Bld) [Volume fraction] 28.8 % Low 34.9 - 44.3 % [facility] Hemoglobin (Bld) [Mass/Vol] 9.6 g/dL Low 11.4 - 15.2 g/dL [facility] Interpretation and review of laboratory results Abnormal [facility] MCH (RBC) [Entitic mass] 28.5 pg 25.9 - 33.9 pg [facility] MCHC (RBC) [Mass/Vol] 33.3 g/dL 31.4 - 35.9 g/dL [facility] MCV (RBC) [Entitic vol] 85.5 fL 79.6 - 97.7 fL [facility] Platelet mean volume (Bld) [Entitic vol] 10.9 fL 8.5 - 12.2 fL [facility] Platelets (Bld) [#/Vol] 279 10*3/uL 150 - 393 K/uL [facility] RBC (Bld) [#/Vol] 3.37 10*6/uL Low [facility] WBC (Bld) [#/Vol] 11.12 10*3/uL 3.99 - 11.19 K/uL [facility] CHEM 7 (LYTES,BUN,CREA,GLUC) on 08-13-2023 Anion gap [Moles/Vol] 15 mmol/L 7 - 17 mmol/L [facility] Chloride [Moles/Vol] 103 mmol/L 98 - 10 8 mmol/L [facility] CO2 [Moles/Vol] 25 mmol/L 21 - 31 mmol/L [facility] Creatinine [Mass/Vol] 0.68 mg/dL 0.50 - 1.20 mg/dL [facility] eGFR, CKD-EPI, Female 87 - PINF [facility] Comment on above: Reported eGFR is bas ed on the CKD-EPI 2020 equation using creatinine, age, and sex. Glucose [Mass/Vol] 163 mg/dL High 70 - 99 mg/dL [facility] Interpretation and review of laboratory results Abnormal [facility] Osmolality Calc [Osmolality] 299 [facility] Potassium [Moles/Vol] 3.3 mmol/L Low 3.5 - 5.0 mmol/L [facility] Sodium [Moles/Vol] 140 mmol/L 135 - 145 mmol/L [facility] Urea nitrogen [Mass/Vol] 22 mg/dL 7 - 25 mg/dL [facility] Urea nitrogen/Creatinine [Mass ratio] 32 mg/mg [facility] HAPTOGLOBINon 08-13-2023 Haptoglobin [Mass/Vol] 261 mg/dL High 44 - 215 mg/dL [facility] Interpretation and review of laboratory results Abnormal [facility] HEMOGLOBIN & HEMATOCRITon Hematocrit (Bld) [Volume fraction] 29.5 % Low 34.9 - 44.3 % [facility] Hemoglobin (Bld) [Mass/Vol] 9.7 g/dL Low 11.4 - 15.2 g/dL [facility] Interpretation and review of laboratory results Abnormal [facility] Hematocrit (Bld) [Volume fraction] 24.3 % Low 34.9 - 44.3 % [facility] Hemoglobin (Bld) [Mass/Vol] 8.1 g/dL Low 11.4 - 15.2 g/dL [facility] Interpretation and review of laboratory results Abnormal [facility] HEPATIC FUNCTION PANELOrdere d By: Kirk Santa on 08-13-2023 Albumin [Mass/Vol] 3.0 g/dL Low 3.5 - 5.0 g/dL [facility] ALP [Catalytic activity/Vol] 352 U/L High 32 - 126 U/L [facility] ALT [Catalytic activity/Vol] 31 U/L 9 - 48 U/L [facility] AST [Catalytic activity/Vol] 47 U/L High 10 - 39 U/L [facility] Bilirubin [Mass/Vol] 5.5 mg/dL High NINF - 1.5 mg/dL [facility] Bilirubin.direct [Mass/Vol] 3.5 mg/dL High NINF - 0.3 mg/dL [facility] Interpretation and review of laboratory results Abnormal [facility] Protein [Mass/Vol] 6.0 g/dL Low 6.4 - 8.3 g/dL [facility] LACTATE DEHYDROGENASEon 07-16 Interpretation and review of laboratory results Normal [facility] LDH Lactate to pyruvate reaction [Catalytic activity/Vol] 181 U/L 100 - 190 U/L [facility] MAGNESIUMon 08-13-2023 Interpretation and review of laboratory results Normal [facility] Magnesium [Mass/Vol] 1.7 mg/dL 1.6 - 2 .6 mg/dL [facility] No Panel Informationon 08-12 [facility] PT,INR,PTTon 08-13-2023 aPTT Coag (PPP) [Time] 108.4 s High [facility] INR Coag (Bld) [Relative time] 1.3 {INR} High 0.9 - 1.1 [facility] Interpretation and review of laboratory results Abnormal [facility] PT Coag (PPP) [Time] 16.3 s High [facility] PTTon 08-13-2023 aPTT Coag (PPP) [Time] 97.7 s High [facility] Interpretation and review of laboratory results Abnormal [facility] Portable XR Chest Viewson IMPRESSION: No acute cardiopulmonary disease OLOGY EXAM: XR CHEST 1 VIE W PORTABLE, 08/13/2023 08:00 AM COMPARISON: 02/24/2021 CLINICAL INDICATIONS: RUQ pain, fever. liver workup negative. 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 RADIOLOGY Ebony Mercedes MD - 08/13/2023 EXAM: XR CHEST 1 VIEW PORTABLE, 08/13/2023 08:00 AM COMPARISON: 02/24/2021 CLINICAL INDICATIONS: RUQ pain, fever. liver workup negative. 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 IMPRESSION IMPRESSION: No acute cardiopulmonary disease [facility] Radiology Study observation (narrative) [facility] Portable XR Chest ViewsOrder ed By: Ebony Mercedes on 08-13-2023 [facility] Work Phone: RETICULOCYTESon 08-13-2023 Interpretation and review of laboratory results Normal [facility] Reticulocytes (Bld) [#/Vol] 0.0739 10*3/uL [facility] Reticulocytes/100 RBC (Bld) 2.54 % 0.74 - 2.54 % [facility] TYPE AND SCREENon 08-13-2023 ABO/RH(D) TYPE Positive [facility] CBC,PLATELETSon 08-12-2023 Erythrocyte distribution width (RBC) [Ratio] 16.6 % High 10.8 - 14.9 % [facility] Hematocrit (Bld) [Volume fraction] 33.6 % Low 34.9 - 44.3 % [facility] Hemoglobin (Bld) [Mass/Vol] 10.9 g/dL Low 11.4 - 15.2 g/dL [facility] Interpretation and review of laboratory results Abnormal [facility] MCH (RBC) [Entitic mass] 27.8 pg 25.9 - 33.9 pg [facility] MCHC (RBC) [Mass/Vol] 32.4 g/dL 31.4 - 35.9 g/dL [facility] MCV (RBC) [Entitic vol] 85.7 fL 79.6 - 97.7 fL [facility] Platelet mean volume (Bld) [Entitic vol] 11.1 fL 8.5 - 12.2 fL [facility] Platelets (Bld) [#/Vol] 280 10*3/uL 150 - 393 K/uL [facility] RBC (Bld) [#/Vol] 3.92 10*6/uL [facility] WBC (Bld) [#/Vol] 7.82 10*3/uL 3.99 - 11.19 K/uL [facility] CHEM 7 (LYTES,BUN,CREA,GLUC) Ordered By: Sandy Quigley on 08-12-2023 Anion gap [Moles/Vol] 16 mmol/L 7 - 17 mmol/L [facility] Chloride [Moles/Vol] 100 mmol/L 98 - 10 8 mmol/L [facility] CO2 [Moles/Vol] 26 mmol/L 21 - 31 mmol/L [facility] Creatinine [Mass/Vol] 0.66 mg/dL 0.50 - 1.20 mg/dL [facility] eGFR, CKD-EPI, Female 88 - PINF [facility] Comment on above: Reported eGFR is bas ed on the CKD-EPI 2020 equation using creatinine, age, and sex. Glucose [Mass/Vol] 152 mg/dL High 70 - 99 mg/dL [facility] Interpretation and review of laboratory results Abnormal [facility] Osmolality Calc [Osmolality] 293 [facility] Potassium [Moles/Vol] 4.2 mmol/L 3.5 - 5.0 mmol/L [facility] Sodium [Moles/Vol] 138 mmol/L 135 - 145 mmol/L [facility] Urea nitrogen [Mass/Vol] 13 mg/dL 7 - 25 mg/dL [facility] Urea nitrogen/Creatinine [Mass ratio] 20 mg/mg [facility] EXTRA MICROon 08-12-2023 [facility] FERRITINon 08-12-2023 Ferritin [Mass/Vol] 93.9 ng/mL 7.3 - 27 0.7 ng/mL [facility] Interpretation and review of laboratory results Normal [facility] FOLATE, SERUMon 08-12-2023 Folate [Mass/Vol] 23.29 ng/mL 5.38 - PIN F ng/mL [facility] Interpretation and review of laboratory results Normal [facility] HEPATIC FUNCTION PANELon Albumin [Mass/Vol] 3.5 g/dL 3.5 - 5.0 g/dL [facility] ALP [Catalytic activity/Vol] 444 U/L High 32 - 126 U/L [facility] ALT [Catalytic activity/Vol] 45 U/L 9 - 48 U/L [facility] AST [Catalytic activity/Vol] 72 U/L High 10 - 39 U/L [facility] Bilirubin [Mass/Vol] 8.6 mg/dL High NINF - 1.5 mg/dL [facility] Bilirubin.direct [Mass/Vol] 5.0 mg/dL High NINF - 0.3 mg/dL [facility] Interpretation and review of laboratory results Abnormal [facility] Protein [Mass/Vol] 7.2 g/dL 6.4 - 8.3 g/dL [facility] IRON/IRON BINDING/TRANSFERRI Non 08-12-2023 Interpretation and review of laboratory results Normal [facility] Iron [Mass/Vol] 66 ug/dL [facility] Iron binding capacity [Mass/Vol] 335 [facility] Iron saturation [Mass fraction] 20 % 20 - 55 % [facility] Transferrin [Mass/Vol] 268 mg/dL 200 - 400 mg/dL [facility] MAGNESIUMon 08-12-2023 Interpretation and review of laboratory results Normal [facility] Magnesium [Mass/Vol] 1.8 mg/dL 1.6 - 2 .6 mg/dL [facility] MR Abdomen WO and W contrast Irene 08-12-2023 IMPRESSION: 1. No interval biliary dilatation from same day right upper quadrant ultrasound. No evidence of choledocholithiasis. Status post cholecystectomy. 2. Hepatic lesions as described, stable compared with the prior MRI from March 2023. 3. No evidence of new abdominal metastatic disease. OLOGY EXAM: MRI ABDOMEN WI TH AND WITHOUT CONTRAST, 08/12/2023 22:33 PM CLINICAL INDICATIONS: Abdominal pain, acute, nonlocalized; MRCP;;Liver metastasis evaluation; Sex: Female, Age: 82 years COMPARISON: Prior MRI dated March 24, 2023; right upper quadrant ultrasound from August 12, 2023 TECHNIQUE: Multiplanar, multisequence MRI scanning was performed of the abdomen before and after the administration of intravenous contrast. T2 weighted MRCP imaging was performed. CONTRAST: Gadopiclenol SOLN 1-25 mL; Route of Administration: Intravenous; Dose: 7.4 mL. FINDINGS: Lung Bases: Normal. Liver: Stable morphology the liver. Lesion within the left hepatic lobe measures 3.2 x 2.4 cm (series 29 image 27), previously 3.1 x 2.4 cm, grossly stable. Indeterminate areas of subtle T2 signal hyperintensity in segment 7 are diminished in conspicuous the from prior and are likely posttreatment effect. Segment 4B/5 lesion measures 1.1 x 1.0 cm (series 37 image 38), previously 1.0 x 0.9 cm, stable. Gallbladder: Cholecystectomy. Bile Ducts: Normal in caliber. No evidence of choledocholithiasis. Spleen: Normal. Pancreas: Normal. Adrenals: Normal. Right Kidney: Normal. No hydronephrosis. Left Kidney: Normal. No hydronephrosis. Gastrointestinal: No bowel dilation or wall thickening. Peritoneum/retroperitoneum : No ascites. Lymph nodes: No enlarged or morphologically abnormal lymph nodes. Vasculature: The abdominal aorta is normal in course and caliber. Patent celiac and superior mesenteric arteries. Patent portal, splenic, and superior mesenteric veins. Body Wall: Normal. Bones: No suspicious enhancing focal osseous lesion. RADIOLOGY Bro Singh M D - 08/12/2023 EXAM: MRI ABDOMEN WITH AND WITHOUT CONTRAST, 08/12/2023 22:33 PM CLINICAL INDICATIONS: Abdominal pain, acute, nonlocalized; MRCP;;Liver metastasis evaluation; Sex: Female, Age: 82 years COMPARISON: Prior MRI dated March 24, 2023; right upper quadrant ultrasound from August 12, 2023 TECHNIQUE: Multiplanar, multisequence MRI scanning was performed of the abdomen before and after the administration of intravenous contrast. T2 weighted MRCP imaging was performed. CONTRAST: Gadopiclenol SOLN 1-25 mL; Route of Administration: Intravenous; Dose: 7.4 mL. FINDINGS: Lung Bases: Normal. Liver: Stable morphology the liver. Lesion within the left hepatic lobe measures 3.2 x 2.4 cm (series 29 image 27), previously 3.1 x 2.4 cm, grossly stable. Indeterminate areas of subtle T2 signal hyperintensity in segment 7 are diminished in conspicuous the from prior and are likely posttreatment effect. Segment 4B/5 lesion measures 1.1 x 1.0 cm (series 37 image 38), previously 1.0 x 0.9 cm, stable. Gallbladder: Cholecystectomy. Bile Ducts: Normal in caliber. No evidence of choledocholithiasis. Spleen: Normal. Pancreas: Normal. Adrenals: Normal. Right Kidney: Normal. No hydronephrosis. Left Kidney: Normal. No hydronephrosis. Gastrointestinal: No bowel dilation or wall thickening. Peritoneum/retroperitoneum : No ascites. Lymph nodes: No enlarged or morphologically abnormal lymph nodes. Vasculature: The abdominal aorta is normal in course and caliber. Patent celiac and superior mesenteric arteries. Patent portal, splenic, and superior mesenteric veins. Body Wall: Normal. Bones: No suspicious enhancing focal osseous lesion. IMPRESSION IMPRESSION: 1. No interval biliary dilatation from same day right upper quadrant ultrasound. No evidence of choledocholithiasis. Status post cholecystectomy. 2. Hepatic lesions as described, stable compared with the prior MRI from March 2023. 3. No evidence of new abdominal metastatic disease. [facility] Radiology Study observation (narrative) [facility] MR Abdomen WO and W contrast IVOrdered By: Bro Singh on 08-12-2023 [facility] Work Phone: No Panel Informationon 08-11 [facility] PT,INR,PTTon 08-12-2023 aPTT Coag (PPP) [Time] 32.3 s [facility] INR Coag (Bld) [Relative time] 1.3 {INR} High 0.9 - 1.1 [facility] Interpretation and review of laboratory results Abnormal [facility] PT Coag (PPP) [Time] 16.3 s High [facility] PTTOrdered By: Min Delacruz on 08-12-2023 aPTT Coag (PPP) [Time] 96.7 s High [facility] Comment on above: Results inconsistent with previous results Interpretation and review of laboratory results Abnormal [facility] PTTon 08-12-2023 aPTT Coag (PPP) [Time] 29.3 s [facility] Interpretation and review of laboratory results Normal [facility] URINALYSIS REFLEX TO CULTURE PERFORMABLEon 08-12-2023 Appearance (U) Clear Clear [facility] Bacteria LM Ql (Urine sed) ABSENT ABSENT [facility] Color (U) Yellow Yellow [facility] Epithelial cells.squamous LM Ql (Urine sed) 3-5/hpf = 1+ 0-2/hpf, 3-5/hpf = 1+ [facility] Glucose Test strip (U) [Mass/Vol] Negative Negative [facility] Interpretation and review of laboratory results Abnormal [facility] Ketones (U) [Mass/Vol] Negative Negative [facility] Leukocyte esterase Test strip Ql (U) Trace Abnormal Negative [facility] Nitrite Ql (U) Negative Negative [facility] pH (U) 6.0 [pH] 5.0 - 7.0 [facility] Protein (U) [Mass/Vol] Negative Negative [facility] RBC (U) [#/Vol] Negative Negative [facility] RBC LM.HPF (Urine sed) [#/Area] 0-2 [facility] Specific gravity (U) [Rel density] 1.008 1.001 - 1.035 [facility] Urobilinogen (U) [Mass/Vol] 0.2 E.U./dL 0.2 E.U/dL, 1.0 E.U/dL [facility] WBC LM.HPF (Urine sed) [#/Area] 0 - 5 [facility] US Abdomen RUQon 08-12-2023 IMPRESSION: Heterogeneous hyperechoic mass in the left hepatic lobe corresponding to lesion seen on prior MRI from March 24, 2023. Status post cholecystectomy. No biliary ductal dilatation. OLOGY EXAM: US ABDOMEN RUQ/LIVER/GB, 08/12/2023 06:32 AM CLINICAL INDICATIONS: Elevated bilirubin COMPARISON: Compared to prior study dated March 24, 2023 TECHNIQUE: Real-time ultrasound evaluation of the right upper quadrant was performed utilizing a curved array transducer. Duplex scan is performed. Color flow images and spectral waveforms obtained. FINDINGS: Pancreas: The visualized pancreas is sonographically normal in appearance. Liver: The liver parenchyma is slightly heterogeneous in echotexture. Heterogeneous hyperechoic mass in the left hepatic lobe measuring approximately 3.0 x 2.9 x 2.5 cm as seen on prior MRI. There is no evidence of intrahepatic biliary ductal dilation. Doppler ultrasound demonstrates hepatopetal flow in the main portal vein. Flow velocity is 35.3 cm/sec which is normal. Gall Bladder: Status post cholecystectomy. The gallbladder fossa is unremarkable. The common duct is normal in caliber measuring 6 mm in diameter. Right Kidney: Limited evaluation of the right kidney demonstrates no hydronephrosis. Bipolar length is 9.8 cm. Ascites: There is no ascites in the visualized abdomen. RADIOLOGY Roberth Flores MD - 08/12/2023 EXAM: US ABDOMEN RUQ/LIVER/GB, 08/12/2023 06:32 AM CLINICAL INDICATIONS: Elevated bilirubin COMPARISON: Compared to prior study dated March 24, 2023 TECHNIQUE: Real-time ultrasound evaluation of the right upper quadrant was performed utilizing a curved array transducer. Duplex scan is performed. Color flow images and spectral waveforms obtained. FINDINGS: Pancreas: The visualized pancreas is sonographically normal in appearance. Liver: The liver parenchyma is slightly heterogeneous in echotexture. Heterogeneous hyperechoic mass in the left hepatic lobe measuring approximately 3.0 x 2.9 x 2.5 cm as seen on prior MRI. There is no evidence of intrahepatic biliary ductal dilation. Doppler ultrasound demonstrates hepatopetal flow in the main portal vein. Flow velocity is 35.3 cm/sec which is normal. Gall Bladder: Status post cholecystectomy. The gallbladder fossa is unremarkable. The common duct is normal in caliber measuring 6 mm in diameter. Right Kidney: Limited evaluation of the right kidney demonstrates no hydronephrosis. Bipolar length is 9.8 cm. Ascites: There is no ascites in the visualized abdomen. IMPRESSION IMPRESSION: Heterogeneous hyperechoic mass in the left hepatic lobe corresponding to lesion seen on prior MRI from March 24, 2023. Status post cholecystectomy. No biliary ductal dilatation. [facility] Radiology Study observation (narrative) [facility] US Abdomen RUQOrdered By: Ezio Flores on 08-12-2023 [facility] Work Phone: VITAMIN B12on 08-12-2023 Cobalamin (Vitamin B12) [Mass/Vol] 607 pg/mL 211 - 911 pg/mL [facility] Comment on above: Testing of Methylmal onic Acid and Intrinsic Factor Blocking Antibody are recommended if clinical suspicion for pernicious anemia due to B12 deficiency is high for patients with intermediate B12 levels (211 to 400 pg/mL) to rule out spurious heterophile antibodies. Interpretation and review of laboratory results Normal [facility] CBC AND ELECTRONIC DIFFon Basophils (Bld) [#/Vol] [facility] Basophils/100 WBC (Bld) [facility] Eosinophils (Bld) [#/Vol] [facility] Eosinophils/100 WBC (Bld) [facility] Erythrocyte distribution width (RBC) [Ratio] 16.5 % High 10.8 - 14.9 % [facility] Hematocrit (Bld) [Volume fraction] 32.9 % Low 34.9 - 44.3 % [facility] Hemoglobin (Bld) [Mass/Vol] 11.3 g/dL Low 11.4 - 15.2 g/dL [facility] Immature granulocytes (Bld) [#/Vol] [facility] Immature granulocytes/100 WBC (Bld) [facility] Lymphocytes (Bld) [#/Vol] [facility] Lymphocytes/100 WBC (Bld) [facility] MCH (RBC) [Entitic mass] 28.9 pg 25.9 - 33.9 pg [facility] MCHC (RBC) [Mass/Vol] 34.3 g/dL 31.4 - 35.9 g/dL [facility] MCV (RBC) [Entitic vol] 84.1 fL 79.6 - 97.7 fL [facility] Monocytes (Bld) [#/Vol] [facility] Monocytes/100 WBC (Bld) [facility] Neutrophils/100 WBC (Bld) [facility] Platelet mean volume (Bld) [Entitic vol] 11.2 fL 8.5 - 12.2 fL [facility] Platelets (Bld) [#/Vol] 286 10*3/uL 150 - 393 K/uL [facility] RBC (Bld) [#/Vol] 3.91 10*6/uL [facility] Segmented neutrophils/100 WBC (Bld) [facility] WBC (Bld) [#/Vol] 8.78 10*3/uL 3.99 - 11.19 K/uL [facility] CHEM 6 (LYTES, BUN CREA)on 0 08-11-2023 Anion gap [Moles/Vol] 15 mmol/L 7 - 17 mmol/L [facility] Chloride [Moles/Vol] 100 mmol/L 98 - 10 8 mmol/L [facility] CO2 [Moles/Vol] 23 mmol/L 21 - 31 mmol/L [facility] Creatinine [Mass/Vol] 0.78 mg/dL 0.50 - 1.20 mg/dL [facility] eGFR, CKD-EPI, Female 76 - PINF [facility] Comment on above: Reported eGFR is bas ed on the CKD-EPI 2020 equation using creatinine, age, and sex. Potassium [Moles/Vol] 3.0 mmol/L Low 3.5 - 5.0 mmol/L [facility] Sodium [Moles/Vol] 135 mmol/L 135 - 145 mmol/L [facility] Urea nitrogen [Mass/Vol] 12 mg/dL 7 - 25 mg/dL [facility] Urea nitrogen/Creatinine [Mass ratio] 15 mg/mg [facility] GLUCOSEon 08-11-2023 Glucose [Mass/Vol] 132 mg/dL High 70 - 99 mg/dL [facility] Interpretation and review of laboratory results Abnormal [facility] HEPATIC FUNCTION PANELon Albumin [Mass/Vol] 3.8 g/dL 3.5 - 5.0 g/dL [facility] ALP [Catalytic activity/Vol] 455 U/L High 32 - 126 U/L [facility] ALT [Catalytic activity/Vol] 49 U/L High 9 - 48 U/L [facility] AST [Catalytic activity/Vol] 67 U/L High 10 - 39 U/L [facility] Bilirubin [Mass/Vol] 8.6 mg/dL High NINF - 1.5 mg/dL [facility] Bilirubin.direct [Mass/Vol] 5.4 mg/dL High NINF - 0.3 mg/dL [facility] Protein [Mass/Vol] 7.3 g/dL 6.4 - 8.3 g/dL [facility] LIPASEon 08-11-2023 Interpretation and review of laboratory results Normal [facility] Lipase [Catalytic activity/Vol] 78 U/L 11 - 82 U/L [facility] MAGNESIUMon 08-11-2023 Interpretation and review of laboratory results Normal [facility] Magnesium [Mass/Vol] 1.9 mg/dL 1.6 - 2 .6 mg/dL [facility] MANUAL DIFFon 08-11-2023 Abs Eos Manual 0.15 [facility] Band form neutrophils/100 WBC (Bld) 0.0 % [facility] Basophils (Bld) [#/Vol] 0.15 10*3/uL 0.00 - 0.15 K/uL [facility] Basophils/100 WBC (Bld) 1.7 % [facility] Differential cell count method Nom (Bld) Manual Differential [facility] Eosinophils/100 WBC (Bld) 1.7 % [facility] Lymphocytes (Bld) [#/Vol] 0.83 10*3/uL Low 1.16 - 3.51 K/uL [facility] Lymphocytes/100 WBC (Bld) 9.5 % [facility] Monocytes (Bld) [#/Vol] 0.68 10*3/uL 0.22 - 0.87 K/uL [facility] Monocytes/100 WBC (Bld) 7.8 % [facility] Myelocyte Relative 1.7 % [facility] Myelocytes (Bld) [#/Vol] 0.15 10*3/uL High NINF - 0.08 K/uL [facility] Neutrophils (Bld) [#/Vol] 6.81 10*3/uL 1.64 - 7.28 K/uL [facility] Platelets Estimate (Bld) [#/Vol] Automated platelet count confirmed by manual slide review [facility] RBC morphology finding Nom (Bld) RBC INDICES CONFIRMED WITH MANUAL SLIDE REVIEW [facility] Segmented neutrophils/100 WBC (Bld) 77.6 % [facility] No Panel Informationon 08-10 [facility] Interpretation and review of laboratory results Abnormal [facility] Interpretation and review of laboratory results Abnormal [facility] XR LUMBAR 2V AP/LATon 2023 XR LUMBAR 2V AP/LAT * * *Final Report* * * DATE OF EXAM: Aug 04 2023 1:30PM [id number] - XR LUMBAR 2V AP/LAT / PROCEDURE REASON: Compression fracture of T7 vertebra, initial encounter ([facility]) * * * * Physician Interpretation * * * * XR LUMBAR 2V AP/LAT PROVIDED HISTORY: Compression fracture of T7 vertebra, initial encounter ([facility]) COMPARISON: No previous similar exams are available for comparison TECHNIQUE: 2 views of lumbar spine. Counting reference: Lumbosacral junction. For the purposes of this report, L4-5 is considered the level of the iliac crest and assume there are 5 lumbar-type vertebrae. Anatomic variant: None. RESULT: The bony mineralization is grossly unremarkable. Moderate levoconvex scoliosis of the lumbar spine is noted. Severe disc degenerative changes at L1-2 and moderate disc degenerative change at L2-3. Severe disc degenerative narrowing at L3-4. Diffuse facet degenerative changes at each of the lumbar levels. No acute fractures seen. Vascular calcifications of the abdominal aorta. IMPRESSION: Scoliosis and multilevel degenerative change. No acute fractures seen [employer]: [facility] Transcribe Date/Time: Aug 10 2023 7:30A Dictated by : JAIDEN YEBOAH MD This examination was interpreted and the report reviewed and electronically signed by: JAIDEN YEBOAH MD on Aug 10 2023 7:30AM EST [id number] Normal [facility] XR THORACIC 2V AP/LATon 07-15 XR THORACIC 2V AP/LAT * * *Final Report* * * DATE OF EXAM: Aug 04 2023 1:28PM [id number] - XR THORACIC 2V AP/LAT / PROCEDURE REASON: Compression fracture of T7 vertebra, initial encounter ([facility]) * * * * Physician Interpretation * * * * EXAMINATION: XR THORACIC 2V AP/LAT HISTORY: PT STATES FELL TWO YEARS AGO HAD SURGERY ON COMPRESSION FX. XR TO FOLLOW UP Compression fracture of T7 vertebra, initial encounter ([facility]) . TECHNIQUE: XR THORACIC 2V AP/LAT Laterality: NOT APPLICABLE Number of different views (projections): 2 M: XB_1 COMPARISON: April 25, 2023 RESULT: T7 compression fracture status post vertebral augmentation again seen with unchanged appearance and associated kyphosis. The vertebral body heights are otherwise normal. Maintained disc heights. Severe osteopenia. Thoracolumbar scoliosis, mild to moderate. No acute fracture or dislocation. There are no bony erosions. IMPRESSION: No interval change. [employer]: [facility] Transcribe Date/Time: Aug 10 2023 7:34A Dictated by : NINO PATEL MD This examination was interpreted and the report reviewed and electronically signed by: NINO PATEL MD on Aug 10 2023 7:35AM EST [id number] Normal [facility] GREGORYMARY ([id number]) 1940 F Date Time Provider Department 07/31/23 ERIC RINCON [facility] During your visit today, we recorded the following information about you: Melissa Haas MA 07/31/2023 10:39 AM Signed Mary is scheduled for XR and follow up with Dr. Rincon on Monday08/08/23. Our XR machine is in the process of being replaced, so she will need to get her XR elsewhere. Left message advising above and asked that she return my call with any questions. Office number with my extension provided. JEAN MARIE Vitale Lindsey, MA 07/31/2023 10:50 AM Signed Patient returned my call, she will get XR done this week. Allergies As of Date: 07/31/2023 Noted Allergy Reaction DIATRIZOATE MEGLUMINE 05/16/2018 10 - Anaphylaxis Comments: Takes prednisone AND benadryl prior to CT scans as pre-meds PENICILLIN G 08/19/2010 16 - Unknown Comments: Other reaction(s): Shortness of breath, edema Date Reviewed: 06/06/2023 Reviewed by: Mariia Lenz MA - Fully Assessed Reason for Visit: Appointment [[id number]] Prescriptions as of 07/31/2023 - amLODIPine (NORVASC) 5 mg tablet Take 1 tablet by mouth every afternoon. - apixaban (ELIQUIS) 5 mg tab(s) Take 1 tablet by mouth every 12 hours. - atorvastatin (LIPITOR) 20 mg tablet Take 0.5 tablets by mouth every afternoon. - Cholecalciferol, Vitamin D3, 50 mcg (2,000 unit) cap Take 1 capsule by mouth once daily. - flecainide (TAMBOCOR) 100 mg tablet Take 1 tablet by mouth every 12 hours. - lisinopril (ZESTRIL) 40 mg tablet Take 1 tablet by mouth every afternoon. - metoprolol succinate ER (TOPROL XL) 100 mg Take 1 tablet by mouth every afternoon. - octreotide LAR (SANDOSTATIN LAR DEPOT) 20 mg Depot INJ Inject 20 mg intramuscularly. - risedronate (ACTONEL) 35 mg tablet Take 35 mg by mouth one time a week. - sertraline (ZOLOFT) 100 mg tablet TAKE 1 AND 1/2 (ONE AND ONE-HALF) TABLETS BY MOUTH EVERY DAY Problem List As Of Date 07/31/2023 Noted Resolved Chronic atrial fibrillation (HCC) [I48.20] 06/06/2023 Encounter Status:Closed by MELISSA HAAS on 07/31/23 Normal [facility] CBC AND ELECTRONIC DIFFon Basophils (Bld) [#/Vol] 0.07 10*3/uL 0.00 - 0.15 K/uL [facility] Basophils/100 WBC (Bld) 0.8 % [facility] Differential cell count method Nom (Bld) Electronic Differential [facility] Eosinophils (Bld) [#/Vol] 0.09 10*3/uL 0.00 - 0.42 K/uL [facility] Eosinophils/100 WBC (Bld) 1.0 % [facility] Erythrocyte distribution width (RBC) [Ratio] 15.2 % High 10.8 - 14.9 % [facility] Hematocrit (Bld) [Volume fraction] 38.3 % 34.9 - 44.3 % [facility] Hemoglobin (Bld) [Mass/Vol] 12.1 g/dL 11.4 - 15.2 g/dL [facility] Immature granulocytes (Bld) [#/Vol] K/uL NINF - 0.08 K/uL [facility] Immature granulocytes/100 WBC (Bld) 0.2 % [facility] Interpretation and review of laboratory results Abnormal [facility] Lymphocytes (Bld) [#/Vol] 1.71 10*3/uL 1.16 - 3.51 K/uL [facility] Lymphocytes/100 WBC (Bld) 18.6 % [facility] MCH (RBC) [Entitic mass] 27.9 pg 25.9 - 33.9 pg [facility] MCHC (RBC) [Mass/Vol] 31.6 g/dL 31.4 - 35.9 g/dL [facility] MCV (RBC) [Entitic vol] 88.5 fL 79.6 - 97.7 fL [facility] Monocytes (Bld) [#/Vol] 0.58 10*3/uL 0.22 - 0.87 K/uL [facility] Monocytes/100 WBC (Bld) 6.3 % [facility] Neutrophils (Bld) [#/Vol] 6.74 10*3/uL 1.64 - 7.28 K/uL [facility] Nucleated RBC/100 WBC (Bld) [Ratio] 0.0 % [facility] Platelet mean volume (Bld) [Entitic vol] 9.7 fL 8.5 - 12.2 fL [facility] Platelets (Bld) [#/Vol] 278 10*3/uL 150 - 393 K/uL [facility] RBC (Bld) [#/Vol] 4.33 10*6/uL [facility] Segmented neutrophils/100 WBC (Bld) 73.1 % [facility] WBC (Bld) [#/Vol] 9.21 10*3/uL 3.99 - 11.19 K/uL [facility] COMPREHENSIVE METABOLIC PANE Bill 06-30-2023 Albumin [Mass/Vol] 4.2 g/dL 3.5 - 5.0 g/dL [facility] ALP [Catalytic activity/Vol] 245 U/L High 32 - 126 U/L [facility] ALT [Catalytic activity/Vol] 25 U/L 9 - 48 U/L [facility] Anion gap [Moles/Vol] 15 mmol/L 7 - 17 mmol/L [facility] AST [Catalytic activity/Vol] 38 U/L 10 - 39 U/L [facility] Bilirubin [Mass/Vol] 0.6 mg/dL NINF - 1.5 mg/dL [facility] Calcium [Mass/Vol] 9.4 mg/dL 8.6 - 10. 5 mg/dL [facility] Chloride [Moles/Vol] 104 mmol/L 98 - 10 8 mmol/L [facility] CO2 [Moles/Vol] 24 mmol/L 21 - 31 mmol/L [facility] Creatinine [Mass/Vol] 1.13 mg/dL 0.50 - 1.20 mg/dL [facility] eGFR, CKD-EPI, Female 49 Low - PINF [facility] Comment on above: Reported eGFR is bas ed on the CKD-EPI 2020 equation using creatinine, age, and sex. Glucose [Mass/Vol] 144 mg/dL High 70 - 99 mg/dL [facility] Interpretation and review of laboratory results Abnormal [facility] Osmolality Calc [Osmolality] 298 [facility] Potassium [Moles/Vol] 4.5 mmol/L 3.5 - 5.0 mmol/L [facility] Protein [Mass/Vol] 7.2 g/dL 6.4 - 8.3 g/dL [facility] Sodium [Moles/Vol] 138 mmol/L 135 - 145 mmol/L [facility] Urea nitrogen [Mass/Vol] 26 mg/dL High 7 - 25 mg/dL [facility] Urea nitrogen/Creatinine [Mass ratio] 23 mg/mg [facility] LACTATE DEHYDROGENASEon 06-13 Interpretation and review of laboratory results Normal [facility] LDH Lactate to pyruvate reaction [Catalytic activity/Vol] 150 U/L 100 - 190 U/L [facility] No Panel Informationon 06-29 [facility] CNOVon 06-06-2023 CNOV Office Visit (NEAGCL M) -- MARY JENKINS ([id number]) 1940 F Date Time Provider Department 06/06/23 1:30 PM ERIC RINCON NEAGCLM During your visit today, we recorded the following information about you: Pulse Respiration Blood pressure Weight 64/minute 16/minute 119/80 72.3 kg Eric Rincon MD 06/06/2023 1:43 PM Signed NEUROSURGERY FOLLOW UP OFFICE NOTE Eric Rincon MD [facility] Date of visit: June 06, 2023 Patient Name: Ms.Edna Mk Jenkins Date of : 1940 Current Age: [age] year old Sex: female MRN/E# [id number] Last Office Visit: 04/25/2023 Chief Complaint: No chief complaint on file. Past Medical/Surgical History: Mary Jenkins is a 82 year old woman who is referred by Dr. Edgar Melton for neurosurgical evaluation. 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 HPI: Ms. Jenkins was seen in the office on 04/25/2023 as a new patient with a CT showing T8 fracture that she obtained following a fall last summer. She reported intermittent low back pain with paresthesia throughout entire lower extremities that worsened with walking and standing straight up. Pain in her low back right > left was most bothersome. She denied weakness or bowel/bladder dysfunction. She also noted that she was having left shoulder pain that radiated into anterior/posterior aspect of left upper extremity, not passing elbow with intermittent paresthesia to left hand. Denied dexterity or imbalance issues. She had used oral steroids and physical therapy for this and she did have improvement. Given her symptoms and lack of imaging, an MRI of her cervical, thoracic and lumbar spine were ordered and she was to follow up in the office once complete, prompting her visit today. The patient presents to the office today stating her pain is about the same. Since her last visit she has had numbness to BLE twice but that has resolved. She described mid to low back pain bilaterally that hurts to do daily activities, but she still does everything on her own. She rates her pain a 6/10 today. She is also still having left shoulder pain but had been told it is arthritis. She denies falls, loww of bowel/bladder or new weakness. She is here for evaluation and plan of care. PREVIOUS CONSERVATIVE TREATMENTS: Tylenol Ibuprofen Percocet Physical therapy at [facility]- provided relief. Asked patient to sign form to obtain office notes. PREVIOUS SURGERY: T8 Kyphoplasty in 09/[address] Melton Surgical Risk Factors: Smoking status: Denies Anticoagulants/antiplatele ts: Eliquis Diabetic: No BMI: PAIN EVALUATION 06/06/2023 1314 Pain Level: 6 Pain Location: Back Description: -- just hurts Frequency: Continuous Intervention/Comfort measure: Medication Tylenol History reviewed. No pertinent past medical history. History reviewed. No pertinent surgical history. History reviewed. No pertinent family history. ALLERGIES Allergen Reactions Diatrizoate Meglumi* Anaphylaxis Takes prednisone AND benadryl prior to CT scans as pre-meds Penicillin G Unknown Other reaction(s): Shortness of breath, edema Current Outpatient Medications Medication Sig Dispense Refill amLODIPine (NORVASC) 5 mg tablet Take 1 tablet by mouth every afternoon. apixaban (ELIQUIS) 5 mg tab(s) Take 1 tablet by mouth every 12 hours. atorvastatin (LIPITOR) 20 mg tablet Take 0.5 tablets by mouth every afternoon. Cholecalciferol, Vitamin D3, 50 mcg (2,000 unit) cap Take 1 capsule by mouth once daily. flecainide (TAMBOCOR) 100 mg tablet Take 1 tablet by mouth every 12 hours. lisinopril (ZESTRIL) 40 mg tablet Take 1 tablet by mouth every afternoon. metoprolol succinate ER (TOPROL XL) 100 mg Take 1 tablet by mouth every afternoon. octreotide LAR (SANDOSTATIN LAR DEPOT) 20 mg Depot INJ Inject 20 mg intramuscularly. risedronate (ACTONEL) 35 mg tablet Take 35 mg by mouth one time a week. sertraline (ZOLOFT) 100 mg tablet TAKE 1 AND 1/2 (ONE AND ONE-HALF) TABLETS BY MOUTH EVERY DAY No current facility-administered medications for this visit. REVIEW OF SYSTEMS Review of Systems Constitutional: Negative for diaphoresis, fatigue and fever. HENT: Negative for ear pain, hearing loss and tinnitus. Eyes: Negative for photophobia, pain and visual disturbance. Respiratory: Negative for cough, chest tightness and shortness of breath. Cardiovascular: Negative for chest pain. Gastrointestinal: Negative for constipation, diarrhea, nausea and vomiting. Endocrine: Negative for polydipsia, polyphagia and polyuria. Genitourinary: Negative for difficulty urinating, frequency and urgency. Musculoskeletal: Positive for back pain. Negative for gait problem, neck pain and neck stiff (more content not included)... Normal [facility] MRI CERVICAL SPINE WO IVCONo n 05-23-2023 MRI CERVICAL SPINE WO IVCON * * *Final Report* * * DATE OF EXAM: May 23 2023 8:45AM [id number] - MRI CERVICAL SPINE WO IVCON / PROCEDURE REASON: Spinal stenosis of cervical region * * * * Physician Interpretation * * * * EXAMINATION: MRI LUMBAR SPINE WO IVCON, MRI THORACIC SPINE WO IVCON, MRI CERVICAL SPINE WO IVCON CLINICAL HISTORY: Spinal stenosis of lumbar region with neurogenic claudication TECHNIQUE: Routine cervical, thoracic, and lumbosacral spine MR protocol without gadolinium. MQ: [id number] COMPARISON: None. RESULT: CERVICAL: Counting reference: Craniocervical junction. Anatomic Variants: None. Localizer images: No significant findings. Alignment: Alignment is anatomic. Craniocervical junction: Craniocervical junction is normal. Cord: The cervical spinal cord is within normal limits of signal intensity and morphology. Bone marrow signal/fracture: No evidence of pathologic marrow infiltration. No evidence of prior fracture. Cervical soft tissues: The paraspinal soft tissues are within normal limits. Canal and foramina: C2-C3: Canal and foramina are patent. C3-C4: There is mild bilateral facet arthropathy, diffuse disc bulge and ligament from thickening resulting in partial effacement of the ventral dorsal thecal sac and minimal bilateral neural foraminal narrowing. C4-C5: There is mild bilateral facet arthropathy and disc osteophyte complex slightly eccentric to left resulting in partial effacement of ventral thecal sac without cord impingement, mild to moderate right and mild left neural foraminal narrowing. C5-C6: There is mild bilateral facet arthropathy and disc osteophyte complex resulting in partial effacement of ventral thecal sac without cord impingement, mild to moderate right and mild left neural foraminal narrowing. C6-C7: There is mild bilateral facet arthropathy and disc osteophyte complex resulting partial effacement of ventral thecal sac without cord impingement and mild bilateral neural foraminal narrowing. C7-T1: There is mild bilateral facet arthropathy and disc osteophyte complex resulting in mild bilateral neural foraminal narrowing. THORACIC: Counting reference: Lumbosacral junction. For the purposes of this report, L4-5 is considered the level of the iliac crest and assume there are 5 lumbar-type vertebrae. Anatomic variant: None. Localizer images: No significant findings. Alignment: Alignment is anatomic. Cord: The thoracic spinal cord is within normal limits of signal intensity and morphology. Bone marrow signal/fracture: There is an old moderate to severe chronic compression fracture of the T8 vertebral body. There is a Schmorl's nodes at the superior endplate of T6. No evidence of pathologic marrow infiltration. No evidence of prior fracture. Thoracic soft tissues: The paraspinal soft tissues are within normal limits. Canal and foramina: There is mild retropulsion of the posterior superior aspect of the compressed T8 vertebral body into the canal resulting in partial effacement of ventral thecal sac. Otherwise no significant thoracic canal or foraminal stenosis. LUMBAR: Counting reference: Lumbosacral junction. For the purposes of this report, L4-5 is considered the level of the iliac crest and assume there are 5 lumbar-type vertebrae. Anatomic variant: None. Localizer images: No significant findings. Alignment: There is mild retrolisthesis of L1 on L2 and L2 on L3. There is moderate levoconvex scoliosis of the lumbar spine. There is mild degenerative loss of intervertebral disc space height at L1-L2, moderate at L2-3 and L3-4 Bone marrow signal/fracture: There are Modic-type femoral to changes at endplates of L3-4. No evidence of pathologic marrow infiltration. No evidence of prior fracture. Conus: The conus is within normal limits of signal intensity and morphology. The conus medullaris terminates at L1. Paraspinal soft tissues: Paraspinal soft tissues are within normal limits. Canal and foramina: T12-L1: Canal and foramina are patent. L1-L2: There is mild bilateral facet arthropathy and disc osteophyte complex resulting in mild spinal canal stenosis and mild bilateral neural foraminal narrowing. L2-L3: There is mild bilateral facet arthropathy, disc osteophyte complex and ligamentum flavum thickening resulting in mild spinal canal stenosis and mild bilateral neural foramina greater on the right. L3-L4: There is mild bilateral facet arthropathy, minimal disc osteophyte complex and minimal ligamentum flavum thickening resulting in mild right neural foraminal narrowing. There is no left neural foraminal narrowing. There is no spinal canal stenosis. L4-L5: There is mild bilateral facet arthropathy, diffuse disc bulge eccentric to left with a superimposed right paracentral/subarticular disc extrusion resulting in obliteration of the right subarticular zone and impingement of the right L5 descending nerve (more content not included)... Normal [facility] MRI LUMBAR SPINE WO IVCONon 05-23-2023 MRI LUMBAR SPINE WO IVCON * * *Final Report* * * DATE OF EXAM: May 23 2023 8:45AM [id number] - MRI LUMBAR SPINE WO IVCON / PROCEDURE REASON: Spinal stenosis of lumbar region with neurogenic claudication * * * * Physician Interpretation * * * * EXAMINATION: MRI LUMBAR SPINE WO IVCON, MRI THORACIC SPINE WO IVCON, MRI CERVICAL SPINE WO IVCON CLINICAL HISTORY: Spinal stenosis of lumbar region with neurogenic claudication TECHNIQUE: Routine cervical, thoracic, and lumbosacral spine MR protocol without gadolinium. MQ: [id number] COMPARISON: None. RESULT: CERVICAL: Counting reference: Craniocervical junction. Anatomic Variants: None. Localizer images: No significant findings. Alignment: Alignment is anatomic. Craniocervical junction: Craniocervical junction is normal. Cord: The cervical spinal cord is within normal limits of signal intensity and morphology. Bone marrow signal/fracture: No evidence of pathologic marrow infiltration. No evidence of prior fracture. Cervical soft tissues: The paraspinal soft tissues are within normal limits. Canal and foramina: C2-C3: Canal and foramina are patent. C3-C4: There is mild bilateral facet arthropathy, diffuse disc bulge and ligament from thickening resulting in partial effacement of the ventral dorsal thecal sac and minimal bilateral neural foraminal narrowing. C4-C5: There is mild bilateral facet arthropathy and disc osteophyte complex slightly eccentric to left resulting in partial effacement of ventral thecal sac without cord impingement, mild to moderate right and mild left neural foraminal narrowing. C5-C6: There is mild bilateral facet arthropathy and disc osteophyte complex resulting in partial effacement of ventral thecal sac without cord impingement, mild to moderate right and mild left neural foraminal narrowing. C6-C7: There is mild bilateral facet arthropathy and disc osteophyte complex resulting partial effacement of ventral thecal sac without cord impingement and mild bilateral neural foraminal narrowing. C7-T1: There is mild bilateral facet arthropathy and disc osteophyte complex resulting in mild bilateral neural foraminal narrowing. THORACIC: Counting reference: Lumbosacral junction. For the purposes of this report, L4-5 is considered the level of the iliac crest and assume there are 5 lumbar-type vertebrae. Anatomic variant: None. Localizer images: No significant findings. Alignment: Alignment is anatomic. Cord: The thoracic spinal cord is within normal limits of signal intensity and morphology. Bone marrow signal/fracture: There is an old moderate to severe chronic compression fracture of the T8 vertebral body. There is a Schmorl's nodes at the superior endplate of T6. No evidence of pathologic marrow infiltration. No evidence of prior fracture. Thoracic soft tissues: The paraspinal soft tissues are within normal limits. Canal and foramina: There is mild retropulsion of the posterior superior aspect of the compressed T8 vertebral body into the canal resulting in partial effacement of ventral thecal sac. Otherwise no significant thoracic canal or foraminal stenosis. LUMBAR: Counting reference: Lumbosacral junction. For the purposes of this report, L4-5 is considered the level of the iliac crest and assume there are 5 lumbar-type vertebrae. Anatomic variant: None. Localizer images: No significant findings. Alignment: There is mild retrolisthesis of L1 on L2 and L2 on L3. There is moderate levoconvex scoliosis of the lumbar spine. There is mild degenerative loss of intervertebral disc space height at L1-L2, moderate at L2-3 and L3-4 Bone marrow signal/fracture: There are Modic-type femoral to changes at endplates of L3-4. No evidence of pathologic marrow infiltration. No evidence of prior fracture. Conus: The conus is within normal limits of signal intensity and morphology. The conus medullaris terminates at L1. Paraspinal soft tissues: Paraspinal soft tissues are within normal limits. Canal and foramina: T12-L1: Canal and foramina are patent. L1-L2: There is mild bilateral facet arthropathy and disc osteophyte complex resulting in mild spinal canal stenosis and mild bilateral neural foraminal narrowing. L2-L3: There is mild bilateral facet arthropathy, disc osteophyte complex and ligamentum flavum thickening resulting in mild spinal canal stenosis and mild bilateral neural foramina greater on the right. L3-L4: There is mild bilateral facet arthropathy, minimal disc osteophyte complex and minimal ligamentum flavum thickening resulting in mild right neural foraminal narrowing. There is no left neural foraminal narrowing. There is no spinal canal stenosis. L4-L5: There is mild bilateral facet arthropathy, diffuse disc bulge eccentric to left with a superimposed right paracentral/subarticular disc extrusion resulting in obliteration of the right subarticular zone and impingement of th (more content not included)... Normal [facility] MRI THORACIC SPINE WO IVCONo n 05-23-2023 MRI THORACIC SPINE WO IVCON * * *Final Report* * * DATE OF EXAM: May 23 2023 8:45AM [id number] - MRI THORACIC SPINE WO IVCON / PROCEDURE REASON: Pathological fracture, other site, initial encounter for fracture * * * * Physician Interpretation * * * * EXAMINATION: MRI LUMBAR SPINE WO IVCON, MRI THORACIC SPINE WO IVCON, MRI CERVICAL SPINE WO IVCON CLINICAL HISTORY: Spinal stenosis of lumbar region with neurogenic claudication TECHNIQUE: Routine cervical, thoracic, and lumbosacral spine MR protocol without gadolinium. MQ: [id number] COMPARISON: None. RESULT: CERVICAL: Counting reference: Craniocervical junction. Anatomic Variants: None. Localizer images: No significant findings. Alignment: Alignment is anatomic. Craniocervical junction: Craniocervical junction is normal. Cord: The cervical spinal cord is within normal limits of signal intensity and morphology. Bone marrow signal/fracture: No evidence of pathologic marrow infiltration. No evidence of prior fracture. Cervical soft tissues: The paraspinal soft tissues are within normal limits. Canal and foramina: C2-C3: Canal and foramina are patent. C3-C4: There is mild bilateral facet arthropathy, diffuse disc bulge and ligament from thickening resulting in partial effacement of the ventral dorsal thecal sac and minimal bilateral neural foraminal narrowing. C4-C5: There is mild bilateral facet arthropathy and disc osteophyte complex slightly eccentric to left resulting in partial effacement of ventral thecal sac without cord impingement, mild to moderate right and mild left neural foraminal narrowing. C5-C6: There is mild bilateral facet arthropathy and disc osteophyte complex resulting in partial effacement of ventral thecal sac without cord impingement, mild to moderate right and mild left neural foraminal narrowing. C6-C7: There is mild bilateral facet arthropathy and disc osteophyte complex resulting partial effacement of ventral thecal sac without cord impingement and mild bilateral neural foraminal narrowing. C7-T1: There is mild bilateral facet arthropathy and disc osteophyte complex resulting in mild bilateral neural foraminal narrowing. THORACIC: Counting reference: Lumbosacral junction. For the purposes of this report, L4-5 is considered the level of the iliac crest and assume there are 5 lumbar-type vertebrae. Anatomic variant: None. Localizer images: No significant findings. Alignment: Alignment is anatomic. Cord: The thoracic spinal cord is within normal limits of signal intensity and morphology. Bone marrow signal/fracture: There is an old moderate to severe chronic compression fracture of the T8 vertebral body. There is a Schmorl's nodes at the superior endplate of T6. No evidence of pathologic marrow infiltration. No evidence of prior fracture. Thoracic soft tissues: The paraspinal soft tissues are within normal limits. Canal and foramina: There is mild retropulsion of the posterior superior aspect of the compressed T8 vertebral body into the canal resulting in partial effacement of ventral thecal sac. Otherwise no significant thoracic canal or foraminal stenosis. LUMBAR: Counting reference: Lumbosacral junction. For the purposes of this report, L4-5 is considered the level of the iliac crest and assume there are 5 lumbar-type vertebrae. Anatomic variant: None. Localizer images: No significant findings. Alignment: There is mild retrolisthesis of L1 on L2 and L2 on L3. There is moderate levoconvex scoliosis of the lumbar spine. There is mild degenerative loss of intervertebral disc space height at L1-L2, moderate at L2-3 and L3-4 Bone marrow signal/fracture: There are Modic-type femoral to changes at endplates of L3-4. No evidence of pathologic marrow infiltration. No evidence of prior fracture. Conus: The conus is within normal limits of signal intensity and morphology. The conus medullaris terminates at L1. Paraspinal soft tissues: Paraspinal soft tissues are within normal limits. Canal and foramina: T12-L1: Canal and foramina are patent. L1-L2: There is mild bilateral facet arthropathy and disc osteophyte complex resulting in mild spinal canal stenosis and mild bilateral neural foraminal narrowing. L2-L3: There is mild bilateral facet arthropathy, disc osteophyte complex and ligamentum flavum thickening resulting in mild spinal canal stenosis and mild bilateral neural foramina greater on the right. L3-L4: There is mild bilateral facet arthropathy, minimal disc osteophyte complex and minimal ligamentum flavum thickening resulting in mild right neural foraminal narrowing. There is no left neural foraminal narrowing. There is no spinal canal stenosis. L4-L5: There is mild bilateral facet arthropathy, diffuse disc bulge eccentric to left with a superimposed right paracentral/subarticular disc extrusion resulting in obliteration of the right subarticular zone and impingement (more content not included)... Normal [facility] No Panel Informationon 05-22 [facility] Basophil percentageOrdered B y: Sara Garcia on 05-03-2023 Basophil percentage 3.3 mg/dL 2.5-4.9 [facility] Chloride [Moles/Vol] 103 mmol/L 98-107 [facility] Glucose [Mass/Vol] 92 mg/dL 74-106 [facility] Potassium [Moles/Vol] 4.6 mmol/L 3.5-5.1 [facility] Sodium [Moles/Vol] 136 mmol/L 136-145 [facility] Laboratory - Chemistry and C hemistry - challengeOrdered By: Sara Garcia on 05-03-2023 CO2 [Moles/Vol] 30.0 mmol/L 21.0-32.0 [facility] Urea nitrogen/Creatinine [Mass ratio] 20.7 mg/mg - [facility] No Panel InformationOrdered By: Sara Garcia on 05-03-2023 Estimated GFR (MDRD) Amer 71 mL/min >60 [facility] Comment on above: GFR Calc Estimated GFR (MDRD) Non-Af Amer 59 mL/min >60 [facility] Comment on above: Non- GFR Calc Miscellaneous Test See comment [facility] Comment on above: TEST RESULTS LIMITSC -Telopeptide, Serum 238 pg/mL Reference Range: Premenopausal Women: 34-635 Postmenopausal Women: 34-1037 TESTING PERFORMED AT [facility] ORIGINAL REPORT ON FILE IN LAB CONTAINS ADDITIONAL TEST SITE INFORMATION. Parathyroid Hormone (Intact) 91.0 pg/mL 18.4-80.1 [facility] Vitamin D 25-Hydroxy 41.6 ng/mL [facility] Comment on above: Vitamin D 25(OH) Sta tus Range Deficiency <20 ng/mL (50nmol/L) Insufficiency 20 - 30 ng/mL (50 - 75 nmol/L) Sufficiency 30 - 100 ng/mL (75 - 250 nmol/L) Toxicity >100 ng/mL (>250 nmol/L) Serum or plasma calcium margot urement (mass/volume)Ordered By: Sara Garcia on 05-03-2023 Calcium [Mass/Vol] 10.1 mg/dL 8.5-10.1 [facility] Serum or plasma creatinine m easurement (mass/volume)Ordered By: Sara Garcia on 05-03-2023 Creatinine [Mass/Vol] 0.97 mg/dL 0.55-1.02 [facility] Comment on above: The validity of the calculated GFR & GFRAA in patients over 70 years has not been determined. Clinical correlation is essential. Serum or plasma thyroid stim ulating hormone (TSH) measurement (units/volume)Ordered By: Sara Garcia on 05-03-2023 TSH Qn 1.82 uIU/mL 0.358-3.74 [facility] Serum or plasma urea nitroge n measurement (mass/volume)Ordered By: Sara Garcia on 05-03-2023 Urea nitrogen [Mass/Vol] 20 mg/dL 7-18 [facility] Thin prep Papanicolaou smear with manual screeningOrdered By: Sara Garcia on 05-03-2023 Thin prep Papanicolaou smear with manual screening 3.8 g/dL 3.2-5.0 [facility] Thin prep Papanicolaou smear with manual screening 0.73 ng/dL 0.76-1.46 [facility] CNOVon 04-25-2023 CNOV Office Visit (NEAGCL M) -- MARY JENKINS ([id number]) 1940 F Date Time Provider Department 04/25/23 1:00 PM ERIC RINCON NEAGCLM During your visit today, we recorded the following information about you: Pulse Respiration Blood pressure Weight 62/minute 16/minute 104/55 72.4 kg Eric Rincon MD 04/25/2023 1:58 PM Signed NEUROSURGERY CONSULT NOTE Eric Rincon MD [facility] Date of visit: April 25, 2023 Patient Name: Ms.Edna Mk Jenkins Date of : 1940 Current Age: [age] year old Sex: female MRN/E# [id number] Last Office Visit: Visit date not found Chief Complaint: Patient presents with: New Patient Past Medical/Surgical History: Mary Jenkins is a 82 year old woman who is referred by Dr. Edgar Melton for neurosurgical evaluation. 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 HISTORY OF PRESENT ILLNESS : The patient presents to the office today as a new patient with CT and radiographic imaging for evaluation of T8 fracture. She reports intermittent low back pain with paresthesia throughout entire lower extremities that worsen with walking and standing straight up. Pain in her low back right > left is most bothersome. She currently denies any symptoms at office visit. Denies lower extremity weakness or bowel/bladder incontinence. Additionally, she reports left shoulder pain that radiates into anterior/posterior aspect of left upper extremity, not passing elbow with intermittent paresthesia to left hand. Denies dexterity or imbalance issues. She has treated her symptoms with oral medications and physical therapy with symptom improvement. She presents to the office for image review, evaluation and plan of care. PREVIOUS CONSERVATIVE TREATMENTS: Tylenol Ibuprofen Percocet Physical therapy at [facility]- provided relief. Asked patient to sign form to obtain office notes. PREVIOUS SURGERY: T8 Kyphoplasty in 09/[address] Melton Surgical Risk Factors: Smoking status: Denies Anticoagulants/antiplatele ts: Eliquis Diabetic: No PAIN EVALUATION 04/25/2023 1255 Pain Level: 0 Pain Location: Back-Lower bilateral legs Description: Numbness;Radiating Duration Amount of Time: 3 Duration Units: Months Frequency: Intermittent History reviewed. No pertinent past medical history. History reviewed. No pertinent surgical history. History reviewed. No pertinent family history. ALLERGIES Allergen Reactions Diatrizoate Meglumi* Anaphylaxis Takes prednisone AND benadryl prior to CT scans as pre-meds Penicillin G Unknown Other reaction(s): Shortness of breath, edema Current Outpatient Medications Medication Sig Dispense Refill amLODIPine (NORVASC) 5 mg tablet Take 1 tablet by mouth every afternoon. apixaban (ELIQUIS) 5 mg tab(s) Take 1 tablet by mouth every 12 hours. atorvastatin (LIPITOR) 20 mg tablet Take 0.5 tablets by mouth every afternoon. Cholecalciferol, Vitamin D3, 50 mcg (2,000 unit) cap Take 1 capsule by mouth once daily. flecainide (TAMBOCOR) 100 mg tablet Take 1 tablet by mouth every 12 hours. lisinopril (ZESTRIL) 40 mg tablet Take 1 tablet by mouth every afternoon. metoprolol succinate ER (TOPROL XL) 100 mg Take 1 tablet by mouth every afternoon. octreotide LAR (SANDOSTATIN LAR DEPOT) 20 mg Depot INJ Inject 20 mg intramuscularly. risedronate (ACTONEL) 35 mg tablet Take 35 mg by mouth one time a week. sertraline (ZOLOFT) 100 mg tablet TAKE 1 AND 1/2 (ONE AND ONE-HALF) TABLETS BY MOUTH EVERY DAY No current facility-administered medications for this visit. REVIEW OF SYSTEMS Review of Systems Constitutional: Negative for chills, fatigue, fever and unexpected weight change. HENT: Negative for trouble swallowing and voice change. Eyes: Negative for visual disturbance. Respiratory: Negative for shortness of breath, wheezing and stridor. Cardiovascular: Negative for chest pain, palpitations and leg swelling. Gastrointestinal: Negative for diarrhea, nausea and vomiting. Endocrine: Negative for cold intolerance and heat intolerance. Genitourinary: Negative for difficulty urinating, dysuria and urgency. Musculoskeletal: Positive for back pain. Negative for gait problem and neck pain. Skin: Negative for color change and pallor. Allergic/Immunologic: Negative for immunocompromised state. Neurological: Positive for numbness. Negative for speech difficulty, weakness and headaches. Hematological: Does not bruise/bleed easily. Psychiatric/Behavioral: Negative for agitation, behavioral problems and confusion. OBJECTIVE: BP 104/55 Pulse 62 Resp 16 Wt 159 lb 9.8 oz (72.4kg) SpO2 97% PHYSICAL EXAM: Mental State : Alert, memory function unremarkable. Attention span and concen (more content not included)... Normal [facility] XR THORACIC 2V AP/LATon 04-13 XR THORACIC 2V AP/LAT * * *Final Report* * * DATE OF EXAM: Apr 25 2023 12:04PM [id number] - XR THORACIC 2V AP/LAT / PROCEDURE REASON: Compression fracture of T11 vertebra, sequela * * * * Physician Interpretation * * * * TECHNIQUE: XR THORACIC 2V AP/LAT EXAM DATE: 04/25/2023 12:04 PM COMPARISON STUDIES: Outside hospital thoracic spine x-rays 04/12/2023 CLINICAL HISTORY: Fracture follow-up Compression fracture of T11 vertebra, sequela RESULT: 12 paired ribs, vertebral body articulating with the first set of ribs designated T1. Severe T8 compression fracture with vertebroplasty and kyphotic deformity in this region, unchanged appearance Remaining visualized vertebral body heights maintained Multilevel disc degenerative changes and endplate osteophytes Osteopenia IMPRESSION: Unchanged appearance severe T8 compression fracture with vertebroplasty and kyphotic deformity Geodetic Computator: CANDACE Transcribe Date/Time: Apr 28 2023 2:00P Dictated by : LUDA RUSH MD This examination was interpreted and the report reviewed and electronically signed by: LUDA RUSH MD on Apr 28 2023 2:02PM EST [id number] Normal [facility] CNPNon 04-20-2023 CNPN Telephone (NEAGCLM) -- MARY JENKINS Mk ([id number]) 1940 F Date Time Provider Department 04/20/23 ERIC RINCON NEAGCLM During your visit today, we recorded the following information about you: Karin Padilla 04/20/2023 8:18 AM Signed Left message with [facility] medical records requesting to have patient's CT Thoracic Spine form 07/16/22 pushed to [facility]. Provided office phone number and my extension.. Allergies As of Date: 04/20/2023 (Not on File) Date Reviewed: Never Reviewed Reason for Visit: Patient Update [1234] Problem List As Of Date: 04/20/2023 (None) Encounter Status:Closed by KARIN PADILLA on 04/20/23 Normal [facility] US THYROID ONLYon 04-20-2023 US THYROID ONLY EXAMINATION: US THYROID ONLY HISTORY: ORDERING SYSTEM PROVIDED HISTORY: Nontoxic multinodular goiter, TECHNOLOGIST PROVIDED HISTORY: Illness/Other Reason for exam: MNG Cancer History: unknown Surgery, RadiationHistory: unknown Encounter Type: Subsequent/Follow-up Additional signs and symptoms: none ORDERING SYSTEM PROVIDED DIAGNOSIS CODES: E04.2 Nontoxic multinodular goiter COMPARISON: None. TECHNIQUE: Ultrasound imaging of thyroid is performed. FINDINGS: The right lobe measures approximately 3.3 x 1.5 x 1.6 cm. The left lobe measures approximately 4.0 x 1.3 x 1.1 cm. Isthmus measures approximately 2 mm in thickness. There is background of mildly heterogeneous echotexture. Subcentimeter prominently cystic nodule in the left lobe without suspicious features. In the right lobe, there is a mixed solid cystic hypoechoic nodule measuring approximately 11 x 8 x 7 mm without echogenic foci (TR3). IMPRESSION: Multinodular thyroid. Visualized nodules do not require follow-up based on TI-RADS criteria. The [employer] TI-RADS committee's white paper recommendations for thyroid lesions classified as TR3 are listed below: > than or equal to 1.5 cm. Follow-up ultrasound in 1, 3, and 5 years. > than or equal to 2.5 cm. FNA. J. Am Joya Radiol 2017; 14:587-595. BAL/essie Workstation ID: [id number] Dictated by: ADDISON DICK on MonApr 21, 2023 3:56:05 PM EST Transcribed by: IVON CERNA on MonApr 21, 2023 4:23:16 PM EST Finalized by: ADDISON DICK on MonApr 21, 2023 4:25:59 PM EST Normal [facility] Comment on above: Order Comment: PT/FA X Injury/Trauma or Illness?:Illness/Other How long have you had these symptoms (acute/chronic)?:Chronic Reason for exam?:MNG History of cancer?:unknown Surgeries, chemotherapy, or radiation?:unknown Type of Exam?:Subsequent/Follow-up Additional signs and symptoms?:none Absolute lymphocyte countOrd ered By: Matt Nunez on 04-13-2023 Lymphocytes Auto (Unsp spec) [#/Vol] 2.87 10*3/uL 0.83-4.51 [facility] Automated lymphocyte count a s percentage of total leukocytesOrdered By: Matt Nunez on 04-13-2023 Lymphocytes/100 WBC Auto (Unsp spec) 32.8 % 19-41 [facility] Basophil percentageOrdered B y: Matt Nunez on 04-13-2023 Basophils/100 WBC (Bld) 0.7 % 0-1 [facility] Bilirubin [Mass/Vol] 0.70 mg/dL 0.20-1.00 [facility] Comment on above: For patients on eltr ombopag therapy, use of Dimension [place] TBIL is not recommended. Chloride [Moles/Vol] 105 mmol/L 98-107 [facility] Eosinophils/100 WBC (Bld) 2.3 % 0-5 [facility] Glucose [Mass/Vol] 85 mg/dL 74-106 [facility] Hemoglobin (Bld) [Mass/Vol] 12.8 g/dL 12.0-15.0 [facility] Monocytes/100 WBC (Bld) 11.0 % 0-10 [facility] Neutrophils (Bld) [#/Vol] 4.6 10*3/uL 2.0-7.7 [facility] Neutrophils/100 WBC (Bld) 53.1 % 47-70 [facility] Potassium [Moles/Vol] 4.1 mmol/L 3.5-5.1 [facility] Protein [Mass/Vol] 7.7 g/dL 6.4-8.2 [facility] Sodium [Moles/Vol] 138 mmol/L 136-145 [facility] WBC (Bld) [#/Vol] 8.7 10*3/uL 4.4-11.0 [facility] Determination of erythrocyte mean corpuscular volume (MCV)Ordered By: Matt Nunez on 04-13-2023 MCV (RBC) [Entitic vol] 89.4 fL 81-99 [facility] Erythrocyte distribution wid th ratioOrdered By: [facility] Enrique on 04-13-2023 Erythrocyte distribution width (RBC) [Ratio] 14.7 % 11.6-14.6 [facility] Erythrocyte distribution wid th standard deviationOrdered By: [facility] Enrique on 04-13-2023 Erythrocyte distribution width (RBC) [Entitic vol] 48.0 fL 35.1-43.9 [facility] Hematocrit Auto (Bld) [Volum e fraction]Ordered By: [facility] on 04-13-2023 Hematocrit (Bld) [Volume fraction] 39.8 % 37-47 [facility] Immature granulocytes/100 WB C Auto (Bld)Ordered By: Matt Nunez on 04-13-2023 Immature granulocytes/100 WBC (Bld) 0.100 % 0.0-0.9 [facility] Comment on above: IG% - Immature Granu locytes (promyelocytes, myelocytes and metamyelocytes) > 1% indicates that a LEFT SHIFT is Present. Laboratory - Chemistry and C hemistry - challengeOrdered By: Matt Nunez on 04-13-2023 Albumin/Globulin [Mass ratio] 1.0 {ratio} 0.9-2.4 [facility] ALP [Catalytic activity/Vol] 118 U/L 45-117 [facility] ALT [Catalytic activity/Vol] 16 U/L 13-56 [facility] CO2 [Moles/Vol] 26.0 mmol/L 21.0-32.0 [facility] Globulin (S) [Mass/Vol] 3.8 g/dL 2.2-4.2 [facility] Urea nitrogen/Creatinine [Mass ratio] 17.3 mg/mg 10-20 [facility] Laboratory - Hematology and Cell countsOrdered By: Matt Nunez on 04-13-2023 MCH (RBC) [Entitic mass] 28.8 pg 27.0-32.0 [facility] MCHC (RBC) [Mass/Vol] 32.2 g/dL 32-36 [facility] Nucleated RBC/100 WBC (Bld) [Ratio] 0 % 0-5 [facility] Platelet mean volume (Bld) [Entitic vol] 10.0 fL 6.2-12.0 [facility] Platelets (Bld) [#/Vol] 287 10*3/uL 150-450 [facility] No Panel InformationOrdered By: Matt Nunez on 04-13-2023 Estimated Creatinine Clearance Calc 39.27 ml/min [facility] Estimated GFR (MDRD) Amer 65 mL/min >60 [facility] Comment on above: GFR Calc Estimated GFR (MDRD) Non-Af Amer 54 mL/min >60 [facility] Comment on above: Non- GFR Calc RBC Auto (Bld) [#/Vol]Ordere d By: Matt Nunez on 04-13-2023 RBC (Bld) [#/Vol] 4.45 10*6/uL 4.2-5.4 [facility] Serum or plasma calcium margot urement (mass/volume)Ordered By: Matt Nunez on 04-13-2023 Calcium [Mass/Vol] 9.1 mg/dL 8.5-10.1 [facility] Serum or plasma creatinine m easurement (mass/volume)Ordered By: Matt Nunez on 04-13-2023 Creatinine [Mass/Vol] 1.04 mg/dL 0.55-1.02 [facility] Comment on above: The validity of the calculated GFR & GFRAA in patients over 70 years has not been determined. Clinical correlation is essential. Serum or plasma urea nitroge n measurement (mass/volume)Ordered By: Matt Nunez on 04-13-2023 Urea nitrogen [Mass/Vol] 18 mg/dL 7-18 [facility] Thin prep Papanicolaou smear with manual screeningOrdered By: Matt Nunez on 04-13-2023 Thin prep Papanicolaou smear with manual screening 3.9 g/dL 3.2-5.0 [facility] Thin prep Papanicolaou smear with manual screening 16 U/L 15-37 [facility] Thin prep Papanicolaou smear with manual screening 7 5-15 [facility] Thin prep Papanicolaou smear with manual screening 50.6 ng/mL 0.0-101.8 [facility] Comment on above: Chromogranin A perfo rmed by [employer] KRYPTORmethodologyValues obtained with different assay methods or kits cannotbe used interchangeably.Performed at: [facility] [id number] Director: Mayo Lowery MD, Phone: [phone] MRI ABDOMEN/PELVIS WITHOUT A ND WITH CONTRASTon 03-24-2023 IMPRESSION: 1. No change from August 2022. Stable hepatic metastases and perirectal and mesenteric nodules. 2. Stable nonenhancing structures in hepatic segment 7. These may reflect treated metastases or postembolization fluid collections. 3. Unchanged enhancing foci in the left sacrum and acetabulum. OLOGY EXAM: MRI ABDOMEN/PE LVIS WITHOUT AND WITH CONTRAST (MRI ABDOMEN AND PELVIS WITH AND WITHOUT CONTRAST), 03/24/2023 15:30 PM CLINICAL INDICATIONS: neuroendocrine; D3A.8:Neuroendocrine tumor COMPARISON: MRI abdomen and pelvis from September 08, 2022. TECHNIQUE: Multiplanar, multisequence MRI scanning was performed of the abdomen and pelvis before and after the administration of intravenous contrast. CONTRAST: gadoterate Meglumine (DOTAREM) 5 MMOL/10ML injection 3-60 mL; Route of Administration: Intravenous; Dose: 14 mL. FINDINGS: Lung Bases: Please see dedicated chest CT scan of the same date for full description of the intra-thoracic contents. Liver: The liver is normal in morphology with diffuse steatosis. Stable post-treatment changes of bland embolization. Hepatic metastases are mostly unchanged. Index lesions as follows: * Dominant lesion in segment 2/3 measures 3.1 x 2.4 cm (series 25, image 29), previously 3.0 x 2.5 cm. There is persistent rim enhancement. * The intermediate T2 signal intensity/T1 hypointense nonenhancing structures in segment 7 are stable. These may reflect fluid collections or treated lesions. The more superior lesion measures 1.5 x 0.8 cm (series 41, image 23), previously 1.6 x 0.9 cm. The more inferior collection measures 1.7 x 1.0 cm (series 41, image 28), previously 1.8 x 1.1 cm (series 35, image 27), previously 2.8 x 1.9 cm. * Segment 4A/5 lesion measures 1.0 x 0.9 cm (series 25, image 46), previously 1.0 x 1.0 cm. No new lesion. Portal vein is patent. Biliary/Gallbladder: Cholecystectomy. The intrahepatic biliary tree is normal in caliber. Mild prominence of the common bile duct is likely due to postcholecystectomy ectasia. The T1 hyperintense focus in the proximal common hepatic duct is no longer present. Spleen: Normal. Pancreas: Normal. Adrenals: Normal. Kidneys: Normal. No hydronephrosis. Gastrointestinal: No bowel dilation. Right hemicolectomy. Few colonic and duodenal diverticula. Mesenteric and perirectal nodules are stable (series 3, image 87 and 116); these had uptake on prior PET/CT. Lymph nodes: No abdominal/retroperitoneal adenopathy is identified. The pelvic lymph nodes with uptake on prior PET/CT are not enlarged and stable in appearance. Peritoneum/retroperitoneum : No ascites. Vasculature: The abdominal aorta is normal in course and caliber. Celiac and superior mesenteric arteries are patent. The portal, splenic, and superior mesenteric veins are patent. Bladder: Normal. Pelvic Organs: Hysterectomy. No adnexal mass. Bones: Degenerative changes with levocurvature of the lumbar spine. Enhancing focus in the sacrum adjacent to the left sacroiliac joint (series 83, image 106) in the right anterior acetabulum (series 83, image 133) are stable. These may be degenerative although there was mild uptake on prior PET/CT. RADIOLOGY Bre Saleh MD - 03/24/2023 EXAM: MRI ABDOMEN/PELVIS WITHOUT AND WITH CONTRAST (MRI ABDOMEN AND PELVIS WITH AND WITHOUT CONTRAST), 03/24/2023 15:30 PM CLINICAL INDICATIONS: neuroendocrine; D3A.8:Neuroendocrine tumor COMPARISON: MRI abdomen and pelvis from September 08, 2022. TECHNIQUE: Multiplanar, multisequence MRI scanning was performed of the abdomen and pelvis before and after the administration of intravenous contrast. CONTRAST: gadoterate Meglumine (DOTAREM) 5 MMOL/10ML injection 3-60 mL; Route of Administration: Intravenous; Dose: 14 mL. FINDINGS: Lung Bases: Please see dedicated chest CT scan of the same date for full description of the intra-thoracic contents. Liver: The liver is normal in morphology with diffuse steatosis. Stable post-treatment changes of bland embolization. Hepatic metastases are mostly unchanged. Index lesions as follows: * Dominant lesion in segment 2/3 measures 3.1 x 2.4 cm (series 25, image 29), previously 3.0 x 2.5 cm. There is persistent rim enhancement. * The intermediate T2 signal intensity/T1 hypointense nonenhancing structures in segment 7 are stable. These may reflect fluid collections or treated lesions. The more superior lesion measures 1.5 x 0.8 cm (series 41, image 23), previously 1.6 x 0.9 cm. The more inferior collection measures 1.7 x 1.0 cm (series 41, image 28), previously 1.8 x 1.1 cm (series 35, image 27), previously 2.8 x 1.9 cm. * Segment 4A/5 lesion measures 1.0 x 0.9 cm (series 25, image 46), previously 1.0 x 1.0 cm. No new lesion. Portal vein is patent. Biliary/Gallbladder: Cholecystectomy. The intrahepatic biliary tree is normal in caliber. Mild prominence of the common bile duct is likely due to postcholecystectomy ectasia. The T1 hyperintense focus in the proximal common hepatic duct is no longer present. Spleen: Normal. Pancreas: Normal. Adrenals: Normal. Kidneys: Normal. No hydronephrosis. Gastrointestinal: No bowel dilation. Right hemicolectomy. Few colonic and duodenal diverticula. Mesenteric and perirectal nodules are stable (series 3, image 87 and 116); these had uptake on prior PET/CT. Lymph nodes: No abdominal/retroperitoneal adenopathy is identified. The pelvic lymph nodes with uptake on prior PET/CT are not enlarged and stable in appearance. Peritoneum/retroperitoneum : No ascites. Vasculature: The abdominal aorta is normal in course and caliber. Celiac and superior mesenteric arteries are patent. The portal, splenic, and superior mesenteric veins are patent. Bladder: Normal. Pelvic Organs: Hysterectomy. No adnexal mass. Bones: Degenerative changes with levocurvature of the lumbar spine. Enhancing focus in the sacrum adjacent to the left sacroiliac joint (series 83, image 106) in the right anterior acetabulum (series 83, image 133) are stable. These may be degenerative although there was mild uptake on prior PET/CT. IMPRESSION IMPRESSION: 1. No change from August 2022. Stable hepatic metastases and perirectal and mesenteric nodules. 2. Stable nonenhancing structures in hepatic segment 7. These may reflect treated metastases or postembolization fluid collections. 3. Unchanged enhancing foci in the left sacrum and acetabulum. [facility] Radiology Study observation (narrative) [facility] MRI ABDOMEN/PELVIS WITHOUT A ND WITH CONTRASTOrdered By: Bre Saleh on 03-24-2023 [facility] Work Phone: US Thyroid glandon 3 IMPRESSION: Small thyroid nodules which do not require further follow-up. * Lesions are classified using ACR TI-RADS. (JACR June 2016) I personally viewed and interpreted these images and I have reviewed and approved this report. OLOGY EXAM: US THYROID, 11/18/2022 14:24 PM CLINICAL INDICATIONS: thyroid nodule D3A.8:Neuroendocrine tumor COMPARISON: CT chest without contrast 09/08/2022. TECHNIQUE: Real-time, grayscale ultrasound evaluation of the neck was performed in transverse and longitudinal orientations using a high-resolution linear array transducer. Color Doppler was utilized to assess vascular flow. FINDINGS: Background thyroid parenchyma is homogeneous . The right lobe measures 3.1 x 1.3 x 1.6 cm and the left lobe measures 3.7 x 1.2 x 1.3 cm. The isthmus measures 1 mm. Multiple benign colloid cysts bilaterally. Dominant thyroid nodule(s) as follows: Nodule # 1 : Right mid Size: 0.8 x 0.6 x 0.8 cm Composition: mixed solid and cystic (1 point) Echogenicity: Hypoechoic (2 points) Shape: Qxfxa-kuon-ogmz (0 points) Margin: Smooth (0 points) Echogenic Foci: None or large comet-tail artifacts (0 points) TI-RADS* score: TR3 (3 pts)- Mildly Suspicious. No FNA or recommended imaging follow-up Nodule # 2 : Left mid Size: 0.7 x 0.3 x 0.5 cm Composition: mixed solid and cystic (1 point) Echogenicity: Hyperechoic or isoechoic (1 point) Shape: Fzkqz-ahsf-omru (0 points) Margin: Smooth (0 points) Echogenic Foci: None or large comet-tail artifacts (0 points) TI-RADS* score: TR2 (2 points)- Not suspicious. No FNA or recommended imaging follow-up RADIOLOGY Bre Saleh MD - 11/18/2022 EXAM: US THYROID, 11/18/2022 14:24 PM CLINICAL INDICATIONS: thyroid nodule D3A.8:Neuroendocrine tumor COMPARISON: CT chest without contrast 09/08/2022. TECHNIQUE: Real-time, grayscale ultrasound evaluation of the neck was performed in transverse and longitudinal orientations using a high-resolution linear array transducer. Color Doppler was utilized to assess vascular flow. FINDINGS: Background thyroid parenchyma is homogeneous . The right lobe measures 3.1 x 1.3 x 1.6 cm and the left lobe measures 3.7 x 1.2 x 1.3 cm. The isthmus measures 1 mm. Multiple benign colloid cysts bilaterally. Dominant thyroid nodule(s) as follows: Nodule # 1 : Right mid Size: 0.8 x 0.6 x 0.8 cm Composition: mixed solid and cystic (1 point) Echogenicity: Hypoechoic (2 points) Shape: Ozcwe-znky-jzps (0 points) Margin: Smooth (0 points) Echogenic Foci: None or large comet-tail artifacts (0 points) TI-RADS* score: TR3 (3 pts)- Mildly Suspicious. No FNA or recommended imaging follow-up Nodule # 2 : Left mid Size: 0.7 x 0.3 x 0.5 cm Composition: mixed solid and cystic (1 point) Echogenicity: Hyperechoic or isoechoic (1 point) Shape: Aqchi-ffmo-qsjg (0 points) Margin: Smooth (0 points) Echogenic Foci: None or large comet-tail artifacts (0 points) TI-RADS* score: TR2 (2 points)- Not suspicious. No FNA or recommended imaging follow-up IMPRESSION IMPRESSION: Small thyroid nodules which do not require further follow-up. * Lesions are classified using ACR TI-RADS. (JACR June 2016) I personally viewed and interpreted these images and I have reviewed and approved this report. [facility] Radiology Study observation (narrative) [facility] US Thyroid glandOrdered By: Bre Saleh on 11-18-2022 [facility] Work Phone: No Panel InformationOrdered By: Matt Nunez on 10-20-2022 Miscellaneous Test See comment [facility] Comment on above: TEST RESULT LIMITSCh romogranin A 51.0 ng/mL 0.0-101.8 Chromogranin A performed by [employer] methodology Values obtained with different assay methods or kits cannot be used interchangeably. [facility] ORIGINAL REPORT ON FILE IN LAB CONTAINS ADDITIONAL TEST SITE INFORMATION. CBC AND ELECTRONIC DIFFon Basophils (Bld) [#/Vol] 0.07 10*3/uL 0.00 - 0.15 K/uL [facility] Basophils/100 WBC (Bld) 1.0 % [facility] Differential cell count method Nom (Bld) Electronic Differential [facility] Eosinophils (Bld) [#/Vol] 0.15 10*3/uL 0.00 - 0.42 K/uL [facility] Eosinophils/100 WBC (Bld) 2.2 % [facility] Erythrocyte distribution width (RBC) [Ratio] 15.9 % High 10.8 - 14.9 % [facility] Hematocrit (Bld) [Volume fraction] 40.4 % 34.9 - 44.3 % [facility] Hemoglobin (Bld) [Mass/Vol] 12.9 g/dL 11.4 - 15.2 g/dL [facility] Immature granulocytes (Bld) [#/Vol] K/uL NINF - 0.08 K/uL [facility] Immature granulocytes/100 WBC (Bld) 0.3 % [facility] Interpretation and review of laboratory results Abnormal [facility] Lymphocytes (Bld) [#/Vol] 1.78 10*3/uL 1.16 - 3.51 K/uL [facility] Lymphocytes/100 WBC (Bld) 26.7 % [facility] MCH (RBC) [Entitic mass] 28.6 pg 25.9 - 33.9 pg [facility] MCHC (RBC) [Mass/Vol] 31.9 g/dL 31.4 - 35.9 g/dL [facility] MCV (RBC) [Entitic vol] 89.6 fL 79.6 - 97.7 fL [facility] Monocytes (Bld) [#/Vol] 0.65 10*3/uL 0.22 - 0.87 K/uL [facility] Monocytes/100 WBC (Bld) 9.7 % [facility] Neutrophils (Bld) [#/Vol] 4.00 10*3/uL 1.64 - 7.28 K/uL [facility] Nucleated RBC/100 WBC (Bld) [Ratio] 0.0 % [facility] Platelet mean volume (Bld) [Entitic vol] 9.8 fL 8.5 - 12.2 fL [facility] Platelets (Bld) [#/Vol] 233 10*3/uL 150 - 393 K/uL [facility] RBC (Bld) [#/Vol] 4.51 10*6/uL [facility] Segmented neutrophils/100 WBC (Bld) 60.1 % [facility] WBC (Bld) [#/Vol] 6.67 10*3/uL 3.99 - 11.19 K/uL [facility] COMPREHENSIVE METABOLIC PANE Bill 10-07-2022 Albumin [Mass/Vol] 4.4 g/dL 3.5 - 5.0 g/dL [facility] ALP [Catalytic activity/Vol] 99 U/L 32 - 126 U/L [facility] ALT [Catalytic activity/Vol] 12 U/L 9 - 48 U/L [facility] Anion gap [Moles/Vol] 15 mmol/L 7 - 17 mmol/L [facility] AST [Catalytic activity/Vol] 18 U/L 10 - 39 U/L [facility] Bilirubin [Mass/Vol] 0.7 mg/dL NINF - 1.5 mg/dL [facility] Calcium [Mass/Vol] 9.7 mg/dL 8.6 - 10. 5 mg/dL [facility] Chloride [Moles/Vol] 105 mmol/L 98 - 10 8 mmol/L [facility] CO2 [Moles/Vol] 26 mmol/L 21 - 31 mmol/L [facility] Creatinine [Mass/Vol] 0.86 mg/dL 0.50 - 1.20 mg/dL [facility] GFR/1.73 sq M.predicted CKD-EPI (S/P/Bld) [Vol rate/Area] 68 - PINF [facility] Comment on above: Reported eGFR is bas ed on the CKD-EPI 2020 equation using creatinine, age, and sex. Glucose [Mass/Vol] 135 mg/dL High 70 - 99 mg/dL [facility] Interpretation and review of laboratory results Abnormal [facility] Osmolality Calc [Osmolality] 299 [facility] Potassium [Moles/Vol] 4.1 mmol/L 3.5 - 5.0 mmol/L [facility] Protein [Mass/Vol] 7.6 g/dL 6.4 - 8.3 g/dL [facility] Sodium [Moles/Vol] 142 mmol/L 135 - 145 mmol/L [facility] Urea nitrogen [Mass/Vol] 13 mg/dL 7 - 25 mg/dL [facility] Urea nitrogen/Creatinine [Mass ratio] 15 mg/mg [facility] LACTATE DEHYDROGENASEon 09-14 Interpretation and review of laboratory results Normal [facility] LDH Lactate to pyruvate reaction [Catalytic activity/Vol] 143 U/L 100 - 190 U/L [facility] Laboratory - Chemistry and C hemistry - challengeon 10-07-2022 TSH Qn 1.408 m[IU]/L [facility] No Panel Informationon 10-07 Interpretation and review of laboratory results Normal [facility] Absolute lymphocyte countOrd ered By: Dr. Nunez on 06-30-2022 Lymphocytes Auto (Unsp spec) [#/Vol] 1.68 10*3/uL 0.83-4.51 [facility] Basophil percentageOrdered B y: Dr. Nunez on 06-30-2022 Basophils/100 WBC (Bld) 1.0 % 0-1 [facility] Bilirubin [Mass/Vol] 0.60 mg/dL 0.20-1.00 [facility] Comment on above: For patients on eltr ombopag therapy, use of Dim[place] TBIL is not recommended. Chloride [Moles/Vol] 104 mmol/L 98-107 [facility] Eosinophils/100 WBC (Bld) 3.4 % 0-5 [facility] Glucose [Mass/Vol] 112 mg/dL 74-106 [facility] Comment on above: Fasting Glucose resu lt from 100 to 125 mg/dL suggests IMPAIRED HOMEOSTASIS per A.D.A. criteria. Neutrophils (Bld) [#/Vol] 4.7 10*3/uL 2.0-7.7 [facility] Neutrophils/100 WBC (Bld) 64.3 % 47-70 [facility] Potassium [Moles/Vol] 4.5 mmol/L 3.5-5.1 [facility] Protein [Mass/Vol] 7.7 g/dL 6.4-8.2 [facility] Sodium [Moles/Vol] 137 mmol/L 136-145 [facility] WBC (Bld) [#/Vol] 7.3 10*3/uL 4.4-11.0 [facility] Blood erythrocytes count (nu mber/volume)Ordered By: Dr. Nunez on 06-30-2022 RBC (Bld) [#/Vol] 4.38 10*6/uL 4.2-5.4 [facility] Blood hemoglobin measurement (mass/volume)Ordered By: Dr. Nunez on 06-30-2022 Hemoglobin (Bld) [Mass/Vol] 12.9 g/dL 12.0-15.0 [facility] Blood lymphocytes/100 leukoc ytesOrdered By: Dr. Nunez on 06-30-2022 Lymphocytes/100 WBC (Bld) 23.1 % 19-41 [facility] Blood monocytes/100 leukocyt esOrdered By: Dr. Nunez on 06-30-2022 Monocytes/100 WBC (Bld) 8.1 % 0-10 [facility] Blood platelet mean volumeOr dered By: Dr. Nunez on 06-30-2022 Platelet mean volume (Bld) [Entitic vol] 9.6 fL 6.2-12.0 [facility] Determination of erythrocyte mean corpuscular volume (MCV)Ordered By: Dr. Nunez on 06-30-2022 MCV (RBC) [Entitic vol] 89.3 fL 81-99 [facility] Hematocrit Auto (Bld) [Volum e fraction]Ordered By: Dr. Nunez on 06-30-2022 Hematocrit (Bld) [Volume fraction] 39.1 % 37-47 [facility] Laboratory - Chemistry and C hemistry - challengeOrdered By: Dr. Nunez on 06-30-2022 ALP [Catalytic activity/Vol] 130 U/L 45-117 [facility] ALT [Catalytic activity/Vol] 22 U/L 13-56 [facility] CO2 [Moles/Vol] 26.0 mmol/L 21.0-32.0 [facility] Globulin (S) [Mass/Vol] 4.0 g/dL 2.2-4.2 [facility] Urea nitrogen/Creatinine [Mass ratio] 16.8 mg/mg 10-20 [facility] Laboratory - Hematology and Cell countsOrdered By: Dr. Nunez on 06-30-2022 Erythrocyte distribution width (RBC) [Entitic vol] 46.3 fL 35.1-43.9 [facility] Erythrocyte distribution width (RBC) [Ratio] 14.3 % 11.6-14.6 [facility] Immature granulocytes/100 WBC (Bld) 0.100 % 0.0-0.9 [facility] Comment on above: IG% - Immature Granu locytes (promyelocytes, myelocytes and metamyelocytes) > 1% indicates that a LEFT SHIFT is Present. MCH (RBC) [Entitic mass] 29.5 pg 27.0-32.0 [facility] Nucleated RBC/100 WBC (Bld) [Ratio] 0 % 0-5 [facility] MCHC Auto (RBC) [Mass/Vol]Or dered By: Dr. Nunez on 06-30-2022 MCHC (RBC) [Mass/Vol] 33.0 g/dL 32-36 [facility] No Panel InformationOrdered By: Dr. Nunez on 06-30-2022 Estimated Creatinine Clearance Calc 37.36 ml/min [facility] Estimated GFR (MDRD) Amer 72 mL/min >60 [facility] Comment on above: GFR Calc Estimated GFR (MDRD) Non-Af Amer 60 mL/min >60 [facility] Comment on above: Non- GFR Calc Miscellaneous Test See comment [facility] Comment on above: TEST RESULT LIMITSCh romogranin A, 42.5 ng/mL 0.0-101.8Chromogranin A performed by [employer] KR[employer]urop[employer] methodologyValues obtained with different assay methods or kits cannot be used interchangeably. TESTING PERFORMED AT [facility]. ORIGINAL REPORT ON FILE IN LAB CONTAINS ADDITIONAL TEST SITE INFORMATION. Platelets bldOrdered By: Dr. Nunez on 06-30-2022 Platelets (Bld) [#/Vol] 273 10*3/uL 150-450 [facility] Serum or plasma albumin margot urement (mass/volume)Ordered By: Dr. Nunez on 06-30-2022 Albumin [Mass/Vol] 3.7 g/dL 3.2-5.0 [facility] Serum or plasma albumin/glob ulin mass ratioOrdered By: Dr. Nunez on 06-30-2022 Albumin/Globulin [Mass ratio] 0.9 {ratio} 0.9-2.4 [facility] Serum or plasma calcium margot urement (mass/volume)Ordered By: Dr. Nunez on 06-30-2022 Calcium [Mass/Vol] 9.4 mg/dL 8.5-10.1 [facility] Serum or plasma creatinine m easurement (mass/volume)Ordered By: Dr. Nunez on 06-30-2022 Creatinine [Mass/Vol] 0.95 mg/dL 0.55-1.02 [facility] Comment on above: The validity of the calculated GFR & GFRAA in patients over 70 years has not been determined. Clinical correlation is essential. Serum or plasma urea nitroge n measurement (mass/volume)Ordered By: Dr. Nunez on 06-30-2022 Urea nitrogen [Mass/Vol] 16 mg/dL 7-18 [facility] Thin prep Papanicolaou smear with manual screeningOrdered By: Dr. Nunez on 06-30-2022 Thin prep Papanicolaou smear with manual screening 20 U/L 15-37 [facility] Thin prep Papanicolaou smear with manual screening 7 5-15 [facility] 24 hour urine calcium measur ement (mass/time)Ordered By: Dr. Garcia on 05-07-2022 Calcium (24H U) [Mass/Time] < 5.0 mg/24 HR 42.0-353.0 [facility] 24 hour urine specimen volum e measurementOrdered By: Dr. Garcia on 05-07-2022 Specimen volume (24H U) 1.3 L [facility] Laboratory - Chemistry and C hemistry - challengeOrdered By: Dr. Garcia on 05-07-2022 pH (U) 1 [pH] [facility] Laboratory - Specimen inform ationOrdered By: Dr. Garcia on 05-07-2022 Collection time (Chani) [Date/time] 24.0 HR 24.0-24.0 [facility] No Panel InformationOrdered By: Dr. Garcia on 05-07-2022 Urine Calcium < 5.0 Not Estab. [facility] 24 hour urine creatinine neil surement (mass/time)Ordered By: Dr. Garcia on 05-05-2022 Creatinine (24H U) [Mass/Time] 0.86 g/24 HR 0.70-1.90 [facility] Basophil percentageOrdered B y: Dr. Garcia on 05-05-2022 Bilirubin [Mass/Vol] 0.70 mg/dL 0.20-1.00 [facility] Comment on above: For patients on eltr ombopag therapy, use of [place] TBIL is not recommended. Chloride [Moles/Vol] 104 mmol/L 98-107 [facility] Glucose [Mass/Vol] 113 mg/dL 74-106 [facility] Comment on above: Fasting Glucose resu lt from 100 to 125 mg/dL suggests IMPAIRED HOMEOSTASIS per A.D.A. criteria. Potassium [Moles/Vol] 3.7 mmol/L 3.5-5.1 [facility] Protein [Mass/Vol] 7.0 g/dL 6.4-8.2 [facility] Sodium [Moles/Vol] 138 mmol/L 136-145 [facility] Laboratory - Chemistry and C hemistry - challengeOrdered By: Dr. Garcia on 05-05-2022 ALP [Catalytic activity/Vol] 103 U/L 45-117 [facility] ALT [Catalytic activity/Vol] 19 U/L 13-56 [facility] CO2 [Moles/Vol] 27.0 mmol/L 21.0-32.0 [facility] Free T4 [Mass/Vol] 0.65 ng/dL 0.76-1.46 [facility] Globulin (S) [Mass/Vol] 3.5 g/dL 2.2-4.2 [facility] Magnesium [Mass/Vol] 1.8 mg/dL 1.6-2.6 [facility] Urea nitrogen/Creatinine [Mass ratio] 23.0 mg/mg 10-20 [facility] Laboratory - Specimen inform ationOrdered By: Dr. Garcia on 05-05-2022 Collection duration (U) 24.0 HOURS 24.0-24.0 [facility] No Panel InformationOrdered By: Dr. Garcia on 05-05-2022 C-Peptide 7.5 ng/mL 1.1-4.4 [facility] Comment on above: C-Peptide reference interval is for fasting patients.Performed at: [facility] [id number] Director: Abdulaziz Jane PhD, Phone: [phone] Estimated GFR (MDRD) Amer 81 mL/min >60 [facility] Comment on above: GFR Calc Estimated GFR (MDRD) Non-Af Amer 67 mL/min >60 [facility] Comment on above: Non- GFR Calc Parathyroid Hormone (Intact) 69.3 pg/mL 18.4-80.1 [facility] Thyroid Stimulating Hormone (TSH) 1.39 uIU/mL 0.358-3.74 [facility] Vitamin D 25-Hydroxy 43.0 ng/mL [facility] Comment on above: Vitamin D 25(OH) Sta tus Range Deficiency <20 ng/mL (50nmol/L) Insufficiency 20 - 30 ng/mL (50 - 75 nmol/L) Sufficiency 30 - 100 ng/mL (75 - 250 nmol/L) Toxicity >100 ng/mL (>250 nmol/L) Serum or plasma albumin margot urement (mass/volume)Ordered By: Dr. Garcia on 05-05-2022 Albumin [Mass/Vol] 3.5 g/dL 3.2-5.0 [facility] Serum or plasma albumin/glob ulin mass ratioOrdered By: Dr. Garcia on 05-05-2022 Albumin/Globulin [Mass ratio] 1.0 {ratio} 0.9-2.4 [facility] Serum or plasma calcium margot urement (mass/volume)Ordered By: Dr. Garcia on 05-05-2022 Calcium [Mass/Vol] 8.8 mg/dL 8.5-10.1 [facility] Serum or plasma creatinine m easurement (mass/volume)Ordered By: Dr. Garcia on 05-05-2022 Creatinine [Mass/Vol] 0.87 mg/dL 0.55-1.02 [facility] Comment on above: The validity of the calculated GFR & GFRAA in patients over 70 years has not been determined. Clinical correlation is essential. Serum or plasma urea nitroge n measurement (mass/volume)Ordered By: Dr. Garcia on 05-05-2022 Urea nitrogen [Mass/Vol] 20 mg/dL 7-18 [facility] Thin prep Papanicolaou smear with manual screeningOrdered By: Dr. Garcia on 05-05-2022 Thin prep Papanicolaou smear with manual screening 17 U/L 15-37 [facility] Thin prep Papanicolaou smear with manual screening 7 5-15 [facility] Urine creatinine measurement (mass/volume)Ordered By: Dr. Garcia on 05-05-2022 Creatinine (U) [Mass/Vol] 47.80 mg/dL NO RANGE EST. [facility] Urine volume measurementOrde red By: Dr. Garcia on 05-05-2022 Specimen volume (U) 1.80 L [facility] Absolute lymphocyte countOrd ered By: Dorothy Bauer on 04-07-2022 Lymphocytes Auto (Unsp spec) [#/Vol] 1.56 10*3/uL 0.83-4.51 [facility] Basophil percentageOrdered B y: Dorothy Bauer on 04-07-2022 Basophils/100 WBC (Bld) 0.6 % 0-1 [facility] Bilirubin [Mass/Vol] 0.70 mg/dL 0.20-1.00 [facility] Comment on above: For patients on eltr ombopag therapy, use of [place] TBIL is not recommended. Chloride [Moles/Vol] 105 mmol/L 98-107 [facility] Eosinophils/100 WBC (Bld) 2.2 % 0-5 [facility] Glucose [Mass/Vol] 91 mg/dL 74-106 [facility] Neutrophils (Bld) [#/Vol] 3.9 10*3/uL 2.0-7.7 [facility] Neutrophils/100 WBC (Bld) 61.6 % 47-70 [facility] Potassium [Moles/Vol] 4.3 mmol/L 3.5-5.1 [facility] Protein [Mass/Vol] 7.5 g/dL 6.4-8.2 [facility] Sodium [Moles/Vol] 140 mmol/L 136-145 [facility] WBC (Bld) [#/Vol] 6.3 10*3/uL 4.4-11.0 [facility] Blood erythrocytes count (nu mber/volume)Ordered By: Dorothy Bauer on 04-07-2022 RBC (Bld) [#/Vol] 4.40 10*6/uL 4.2-5.4 [facility] Blood hemoglobin measurement (mass/volume)Ordered By: Dorothy Bauer on 04-07-2022 Hemoglobin (Bld) [Mass/Vol] 12.7 g/dL 12.0-15.0 [facility] Blood lymphocytes/100 leukoc ytesOrdered By: Dorothy Bauer on 04-07-2022 Lymphocytes/100 WBC (Bld) 24.9 % 19-41 [facility] Blood monocytes/100 leukocyt esOrdered By: Dorothy Bauer on 04-07-2022 Monocytes/100 WBC (Bld) 10.4 % 0-10 [facility] Blood platelet mean volumeOr dered By: Dorothy Bauer on 04-07-2022 Platelet mean volume (Bld) [Entitic vol] 9.8 fL 6.2-12.0 [facility] Determination of erythrocyte mean corpuscular volume (MCV)Ordered By: Dorothy Bauer on 04-07-2022 MCV (RBC) [Entitic vol] 89.1 fL 81-99 [facility] Hematocrit Auto (Bld) [Volum e fraction]Ordered By: Dorothy Bauer on 04-07-2022 Hematocrit (Bld) [Volume fraction] 39.2 % 37-47 [facility] Laboratory - Chemistry and C hemistry - challengeOrdered By: [facility]2022 ALP [Catalytic activity/Vol] 116 U/L 45-117 [facility] ALT [Catalytic activity/Vol] 22 U/L 13-56 [facility] CO2 [Moles/Vol] 28.0 mmol/L 21.0-32.0 [facility] Globulin (S) [Mass/Vol] 3.7 g/dL 2.2-4.2 [facility] Urea nitrogen/Creatinine [Mass ratio] 20.9 mg/mg 10-20 [facility] Laboratory - Hematology and Cell countsOrdered By: [facility] Lizette on 04-07-2022 Erythrocyte distribution width (RBC) [Entitic vol] 47.1 fL 35.1-43.9 [facility] Erythrocyte distribution width (RBC) [Ratio] 14.6 % 11.6-14.6 [facility] Immature granulocytes/100 WBC (Bld) 0.300 % 0.0-0.9 [facility] Comment on above: IG% - Immature Granu locytes (promyelocytes, myelocytes and metamyelocytes) > 1% indicates that a LEFT SHIFT is Present. MCH (RBC) [Entitic mass] 28.9 pg 27.0-32.0 [facility] Nucleated RBC/100 WBC (Bld) [Ratio] 0 % 0-5 [facility] MCHC Auto (RBC) [Mass/Vol]Or dered By: Dorothy Bauer on 04-07-2022 MCHC (RBC) [Mass/Vol] 32.4 g/dL 32-36 [facility] No Panel InformationOrdered By: Dorothy Bauer on 04-07-2022 Estimated Creatinine Clearance Calc 36.97 ml/min [facility] Estimated GFR (MDRD) Amer 72 mL/min >60 [facility] Comment on above: GFR Calc Estimated GFR (MDRD) Non-Af Amer 60 mL/min >60 [facility] Comment on above: Non- GFR Calc Platelets bldOrdered By: Catarina Bauer on 04-07-2022 Platelets (Bld) [#/Vol] 232 10*3/uL 150-450 [facility] Serum or plasma albumin margot urement (mass/volume)Ordered By: Dorothy Bauer on 04-07-2022 Albumin [Mass/Vol] 3.8 g/dL 3.2-5.0 [facility] Serum or plasma albumin/glob ulin mass ratioOrdered By: Dorothy Bauer on 04-07-2022 Albumin/Globulin [Mass ratio] 1.0 {ratio} 0.9-2.4 [facility] Serum or plasma calcium margot urement (mass/volume)Ordered By: Dorothy Bauer on 04-07-2022 Calcium [Mass/Vol] 9.4 mg/dL 8.5-10.1 [facility] Serum or plasma creatinine m easurement (mass/volume)Ordered By: Dorothy Bauer on 04-07-2022 Creatinine [Mass/Vol] 0.96 mg/dL 0.55-1.02 [facility] Comment on above: The validity of the calculated GFR & GFRAA in patients over 70 years has not been determined. Clinical correlation is essential. Serum or plasma urea nitroge n measurement (mass/volume)Ordered By: Dorothy Bauer on 04-07-2022 Urea nitrogen [Mass/Vol] 20 mg/dL 7-18 [facility] Thin prep Papanicolaou smear with manual screeningOrdered By: Dorothy Bauer on 04-07-2022 Thin prep Papanicolaou smear with manual screening 18 U/L 15-37 [facility] Thin prep Papanicolaou smear with manual screening 7 5-15 [facility] No Panel InformationOrdered By: Dr. Nunez on 03-09-2022 Miscellaneous Test See comment [facility] Comment on above: TEST RESULT LIMITSCh romogranin A 54.3 nng/mL 0.0-101.8Chromogranin A performed by [employer] methodology.Values obtained with different assay methods or kits cannot be used interchangeably. [facility] ORIGINAL REPORT ON FILE IN LAB CONTAINS ADDITIONAL TEST SITE INFORMATION. PT Skull base to mid-thighon 02-03-2022 IMPRESSION: . 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 Worsening of anterior pelvic wall activity and improvement of left pelvic sidewall activity, with new activity in a left inguinal lymph node. Similar perirectal activity Milder activity within a nodule at the right major fissure which despite being below background hepatic activity is still concerning for malignancy and stable. Nonspecific uptake within a right subpectoral lymph node and multiple left axillary lymph nodes. Interval increase in activity within the left acetabulum as well as the left hemisacrum. OLOGY EXAM: NUC PET NEUROENDOCRINE, 02/03/2022 12:32 PM CLINICAL INDICATIONS: NET; , COMPARISON: PET/CT January 18, 2021 CT DOSE: DLP: 585 mGy x cm kVp: 120 TECHNIQUE: Approximately 61 minutes following the injection of 4.0 mCi of Gallium-68 Dotatate, the patient was positioned on the Siemens [...] pituitary gland, salivary glands, and thyroid. Chest: Very mild uptake within a subpectoral lymph node on the right which is below background hepatic uptake. Similar uptake within multiple left axillary lymph nodes. Tracer uptake within a nodule at the right major fissure which despite being below background hepatic activity is still concerning for malignancy. This appears similar to the prior exam. Increased uptake within a right internal mammary lymph node which is above hepatic background and increased in avidity since the prior exam. Abdomen/Pelvis: Intense physiologic uptake seen within the spleen and adrenal glands which can obscure potential disease in these structures. Milder physiologic uptake seen within the liver. Multifocal hepatic disease redemonstrated, however, lesions overall do appear improved with resolution of a couple of foci and improvement in intensity of others., Mild activity within the left inguinal region and along the left anterior pelvic wall. Pelvic wall activity appears more intense with new activity in the lymph node. Perirectal nodularity redemonstrated, similar. Increased uptake along the left pelvic sidewall appears slightly improved. There is a mesenteric nodule with mild avidity which is difficult to differentiate from adjacent bowel on the prior exam. Musculoskeletal: Mild increased uptake at the left SI region. RADIOLOGY Lucinda Russell MD - 02/03/2022 EXAM: NUC PET NEUROENDOCRINE, 02/03/2022 12:32 PM CLINICAL INDICATIONS: NET; , COMPARISON: PET/CT January 18, 2021 CT DOSE: DLP: 585 mGy x cm kVp: 120 TECHNIQUE: Approximately 61 minutes following the injection of 4.0 mCi of Gallium-68 Dotatate, the patient was positioned on the Siemens [...] pituitary gland, salivary glands, and thyroid. Chest: Very mild uptake within a subpectoral lymph node on the right which is below background hepatic uptake. Similar uptake within multiple left axillary lymph nodes. Tracer uptake within a nodule at the right major fissure which despite being below background hepatic activity is still concerning for malignancy. This appears similar to the prior exam. Increased uptake within a right internal mammary lymph node which is above hepatic background and increased in avidity since the prior exam. Abdomen/Pelvis: Intense physiologic uptake seen within the spleen and adrenal glands which can obscure potential disease in these structures. Milder physiologic uptake seen within the liver. Multifocal hepatic disease redemonstrated, however, lesions overall do appear improved with resolution of a couple of foci and improvement in intensity of others., Mild activity within the left inguinal region and along the left anterior pelvic wall. Pelvic wall activity appears more intense with new activity in the lymph node. Perirectal nodularity redemonstrated, similar. Increased uptake along the left pelvic sidewall appears slightly improved. There is a mesenteric nodule with mild avidity which is difficult to differentiate from adjacent bowel on the prior exam. Musculoskeletal: Mild increased uptake at the left SI region. IMPRESSION IMPRESSION: . 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 Worsening of anterior pelvic wall activity and improvement of left pelvic sidewall activity, with new activity in a left inguinal lymph node. Similar perirectal activity Milder activity within a nodule at the right major fissure which despite being below background hepatic activity is still concerning for malignancy and stable. Nonspecific uptake within a right subpectoral lymph node and multiple left axillary lymph nodes. Interval increase in activity within the left acetabulum as well as the left hemisacrum. [facility] Radiology Study observation (narrative) [facility] PT Skull base to mid-thighOr dered By: Lucinda Russell on 02-03-2022 [facility] Work Phone: Basophil percentageon 2021 Basophil percentage 3.7 mg/dL 2.5-4.9 [place] [facility] Work Phone: Chloride [Moles/Vol] 106 mmol/L 98-[address] [facility] [address] [facility] [place] Work Phone: Glucose [Mass/Vol] 96 mg/dL 74-106 [place] [facility] Work Phone: [phone] Potassium [Moles/Vol] 4.2 mmol/L 3.5-5.1 [place] [facility] [place] Work Phone: [phone] Sodium [Moles/Vol] 141 mmol/L 136-145 [facility] Work Phone: [phone] Cholesterol [Mass/Vol] 173 mg/dL <200 [facility] Work Phone: [phone] Comment on above: <200 mg/dL Desirable 200-240 mg/dL Borderline >240 mg/dL High Risk Triglyceride [Mass/Vol] 135 mg/dL <199 [facility] Work Phone: [phone] Comment on above: The drugs N-Acetylcy steine and Metamizole may falsely depress this assay.Serum Triglycerides Reference Interval Normal <150 mg/dL Borderline high 150 - 199 mg/dL High 200 - 499 mg/dL Very High > or = 500 mg/dL Laboratory - Chemistry and C hemistry - challengeon 11-08-2021 CO2 [Moles/Vol] 25.0 mmol/L 21.0-32.0 [facility] Work Phone: [phone] Urea nitrogen/Creatinine [Mass ratio] 24.0 mg/mg 10-20 [facility] Work Phone: [phone] No Panel Informationon 11-08 Estimated GFR (MDRD) Amer 85 mL/min >60 [facility] Work Phone: [phone] Comment on above: GFR Calc Estimated GFR (MDRD) Non-Af Amer 70 mL/min >60 [facility] Work Phone: [phone] Comment on above: Non- GFR Calc Parathyroid Hormone (Intact) 64.3 pg/mL 18.4-80.1 [facility] Work Phone: [phone] Vitamin D 25-Hydroxy 40.2 ng/mL [facility] Work Phone: [phone] Comment on above: Vitamin D 25(OH) Sta tus Range Deficiency <20 ng/mL (50nmol/L) Insufficiency 20 - 30 ng/mL (50 - 75 nmol/L) Sufficiency 30 - 100 ng/mL (75 - 250 nmol/L) Toxicity >100 ng/mL (>250 nmol/L) Urine Microalbumin/Creatini ne Ratio 6.6 mg/g CRE <30 [facility] Work Phone: Serum or plasma albumin margot urement (mass/volume)on 11-08-2021 Albumin [Mass/Vol] 3.6 g/dL 3.2-5.0 [facility] Work Phone: Serum or plasma calcium margot urement (mass/volume)on 11-08-2021 Calcium [Mass/Vol] 9.2 mg/dL 8.5-10.1 [facility] Work Phone: Serum or plasma cholesterol in HDL measurement (mass/volume)on 11-08-2021 Cholesterol in HDL [Mass/Vol] 58 mg/dL >40 [facility] Work Phone: Comment on above: The drugs N-Acetylcy steine and Metamizole may falsely depress this assay. Reference Range HDL <40 mg/dL Low HDL Cholesterol HDL >or= 60 mg/dL High HDL Cholesterol Serum or plasma cholesterol in VLDL measurement (mass/volume)on 11-08-2021 Cholesterol in VLDL [Mass/Vol] 27 mg/dL 5-40 [facility] Work Phone: Serum or plasma creatinine m easurement (mass/volume)on 11-08-2021 Creatinine [Mass/Vol] 0.83 mg/dL 0.55-1.02 [facility] Work Phone: Comment on above: The validity of the calculated GFR & GFRAA in patients over 70 years has not been determined. Clinical correlation is essential. Serum or plasma low density lipoprotein (LDL) cholesterol measurement (mass/volume)on 11-08-2021 Cholesterol in LDL [Mass/Vol] 88 mg/dL 0-130 [facility] Work Phone: Serum or plasma urea nitroge n measurement (mass/volume)on 11-08-2021 Urea nitrogen [Mass/Vol] 20 mg/dL 7-18 [facility] Work Phone: Thin prep Papanicolaou smear with manual screeningon 11-08-2021 Thin prep Papanicolaou smear with manual screening 14.3 mg/L NO RANGE EST. [facility] Work Phone: Urine creatinine measurement (mass/volume)on 11-08-2021 Creatinine (U) [Mass/Vol] 216.00 mg/dL NO RANGE EST. [facility] Work Phone: Absolute lymphocyte counton 10-26-2021 Lymphocytes Auto (Unsp spec) [#/Vol] 1.50 10*3/uL 0.83-4.51 [facility] Work Phone: Basophil percentageon 2021 Basophils/100 WBC (Bld) 0.8 % 0-1 [facility] Work Phone: Bilirubin [Mass/Vol] 0.40 mg/dL 0.20-1.00 [facility] Work Phone: Comment on above: For patients on eltr ombopag therapy, use of Dimension [place] TBIL is not recommended. Chloride [Moles/Vol] 107 mmol/L 98-107 [facility] Work Phone: Eosinophils/100 WBC (Bld) 4.5 % 0-5 [facility] Work Phone: Glucose [Mass/Vol] 118 mg/dL 74-106 [facility] Work Phone: Comment on above: Fasting Glucose resu lt from 100 to 125 mg/dL suggests IMPAIRED HOMEOSTASIS per A.D.A. criteria. Neutrophils (Bld) [#/Vol] 4.0 10*3/uL 2.0-7.7 [facility] Work Phone: Neutrophils/100 WBC (Bld) 61.7 % 47-70 [facility] Work Phone: Potassium [Moles/Vol] 4.6 mmol/L 3.5-5.1 [facility] Work Phone: Protein [Mass/Vol] 7.4 g/dL 6.4-8.2 [facility] Work Phone: Sodium [Moles/Vol] 139 mmol/L 136-145 [facility] Work Phone: WBC (Bld) [#/Vol] 6.5 10*3/uL 4.4-11.0 [facility] Work Phone: [phone] Blood erythrocytes count (nu mber/volume)on 10-26-2021 RBC (Bld) [#/Vol] 4.09 10*6/uL 4.2-5.4 [facility] Work Phone: [phone] Blood hemoglobin measurement (mass/volume)on 10-26-2021 Hemoglobin (Bld) [Mass/Vol] 10.8 g/dL 12.0-15.0 [facility] Work Phone: [phone] Blood lymphocytes/100 leukoc yteson 10-26-2021 Lymphocytes/100 WBC (Bld) 23.1 % 19-41 [facility] Work Phone: [phone] Blood monocytes/100 leukocyt eson 10-26-2021 Monocytes/100 WBC (Bld) 9.6 % 0-10 [facility] Work Phone: [phone] Blood platelet mean volumeon 10-26-2021 Platelet mean volume (Bld) [Entitic vol] 9.8 fL 6.2-12.0 [facility] Work Phone: [phone] Determination of erythrocyte mean corpuscular volume (MCV)on 10-26-2021 MCV (RBC) [Entitic vol] 85.8 fL 81-99 [facility] Work Phone: [phone] Hematocrit Auto (Bld) [Volum e fraction]on 10-26-2021 Hematocrit (Bld) [Volume fraction] 35.1 % 37-47 [facility] Work Phone: [phone] Iron measurement (mass/mass) Ordered By: Dr. Nunez on 10-26-2021 Iron (Unsp spec) [Mass/Mass] 35 ug/dL 50-170 [facility] Laboratory - Chemistry and C hemistry - challengeon 10-26-2021 ALP [Catalytic activity/Vol] 158 U/L 45-117 [facility] Work Phone: [phone] ALT [Catalytic activity/Vol] 22 U/L 13-56 [facility] Work Phone: [phone] CO2 [Moles/Vol] 25.0 mmol/L 21.0-32.0 [facility] Work Phone: [phone] Globulin (S) [Mass/Vol] 3.9 g/dL 2.2-4.2 [facility] Work Phone: [phone] Urea nitrogen/Creatinine [Mass ratio] 21.4 mg/mg 10-20 [facility] Work Phone: [phone] Laboratory - Chemistry and C hemistry - challengeOrdered By: Dr. Nnuez on 10-26-2021 Cobalamin (Vitamin B12) [Mass/Vol] 388 pg/mL -91 [facility] Laboratory - Hematology and Cell countson 10-26-2021 Erythrocyte distribution width (RBC) [Entitic vol] 51.1 fL 35.1-43.9 [facility] Work Phone: [phone] Erythrocyte distribution width (RBC) [Ratio] 16.3 % 11.6-14.6 [facility] Work Phone: [phone] Immature granulocytes/100 WBC (Bld) 0.300 % 0.0-0.9 [facility] Work Phone: [phone] Comment on above: IG% - Immature Granu locytes (promyelocytes, myelocytes and metamyelocytes) > 1% indicates that a LEFT SHIFT is Present. MCH (RBC) [Entitic mass] 26.4 pg 27.0-32.0 [facility] Work Phone: [phone] Nucleated RBC/100 WBC (Bld) [Ratio] 0 % 0-5 [facility] Work Phone: [phone] MCHC Auto (RBC) [Mass/Vol]on 10-26-2021 MCHC (RBC) [Mass/Vol] 30.8 g/dL 32-36 [facility] Work Phone: [phone] Panel Informationon 10-26 Estimated Creatinine Clearance Calc 35.03 ml/min [facility] Work Phone: Estimated GFR (MDRD) Amer 66 mL/min >60 [facility] Work Phone: Comment on above: GFR Calc Estimated GFR (MDRD) Non-Af Amer 55 mL/min >60 [facility] Work Phone: Comment on above: Non- GFR Calc Miscellaneous Test See comment [facility] Work Phone: Comment on above: TEST RESULT LIMITSCh romogranin A 88.2 ng/mL 0.0-101.8Chromogranin A performed by [employer] methodology. Values obtained with different assay methods or kits cannot be used interchangeably. TESTING PERFORMED AT [facility]. ORIGINAL REPORT ON FILE IN LAB CONTAINS ADDITIONAL TEST SITE INFORMATION. No Panel InformationOrdered By: Dr. Nunez on 10-26-2021 Total Iron Binding Capacity 479 ug/dL 250-450 [facility] Platelets bldon 10-26-2021 Platelets (Bld) [#/Vol] 271 10*3/uL 150-450 [facility] Work Phone: Serum or plasma albumin margot urement (mass/volume)on 10-26-2021 Albumin [Mass/Vol] 3.5 g/dL 3.2-5.0 [facility] Work Phone: [phone] Serum or plasma albumin/glob ulin mass ratioon 10-26-2021 Albumin/Globulin [Mass ratio] 0.9 {ratio} 0.9-2.4 [facility] Work Phone: [phone] Serum or plasma calcium margot urement (mass/volume)on 10-26-2021 Calcium [Mass/Vol] 9.0 mg/dL 8.5-10.1 [facility] Work Phone: Serum or plasma creatinine m easurement (mass/volume)on 10-26-2021 Creatinine [Mass/Vol] 1.03 mg/dL 0.55-1.02 [facility] Work Phone: Comment on above: The validity of the calculated GFR & GFRAA in patients over 70 years has not been determined. Clinical correlation is essential. Serum or plasma ferritin neil surement (mass/volume)Ordered By: Dr. Nunez on 10-26-2021 Ferritin [Mass/Vol] 8 ng/mL 8-252 [facility] Serum or plasma iron saturat ion measurement (mass fraction)Ordered By: Dr. Nunez on 10-26-2021 Iron saturation [Mass fraction] 7.3 % 15.0-55.0 [facility] Serum or plasma urea nitroge n measurement (mass/volume)on 10-26-2021 Urea nitrogen [Mass/Vol] 22 mg/dL 7-18 [facility] Work Phone: Thin prep Papanicolaou smear with manual screeningon 10-26-2021 Thin prep Papanicolaou smear with manual screening 20 U/L 15-37 [facility] Work Phone: Thin prep Papanicolaou smear with manual screening 7 5-15 [facility] Work Phone: CBC AND ELECTRONIC DIFFon Basophils (Bld) [#/Vol] 0.06 10*3/uL 0.00 - 0.15 K/uL [facility] Basophils/100 WBC (Bld) 0.8 % [facility] Differential cell count method Nom (Bld) Electronic Differential [facility] Eosinophils (Bld) [#/Vol] 0.25 10*3/uL 0.00 - 0.42 K/uL [facility] Eosinophils/100 WBC (Bld) 3.4 % [facility] Erythrocyte distribution width (RBC) [Ratio] 16.9 % High 10.8 - 14.9 % [facility] Hematocrit (Bld) [Volume fraction] 34.5 % Low 34.9 - 44.3 % [facility] Hemoglobin (Bld) [Mass/Vol] 10.8 g/dL Low 11.4 - 15.2 g/dL [facility] Immature granulocytes (Bld) [#/Vol] 10*3/uL <=0.08 K/uL [facility] Immature granulocytes/100 WBC (Bld) 0.1 % [facility] Interpretation and review of laboratory results Abnormal [facility] Lymphocytes (Bld) [#/Vol] 1.89 10*3/uL 1.16 - 3.51 K/uL [facility] Lymphocytes/100 WBC (Bld) 25.9 % [facility] MCH (RBC) [Entitic mass] 26.4 pg 25.9 - 33.9 pg [facility] MCHC (RBC) [Mass/Vol] 31.3 g/dL Low 31.4 - 35.9 g/dL [facility] MCV (RBC) [Entitic vol] 84.4 fL 79.6 - 97.7 fL [facility] Monocytes (Bld) [#/Vol] 0.71 10*3/uL 0.22 - 0.87 K/uL [facility] Monocytes/100 WBC (Bld) 9.7 % [facility] Neutrophils (Bld) [#/Vol] 4.39 10*3/uL 1.64 - 7.28 K/uL [facility] Nucleated RBC/100 WBC (Bld) [Ratio] 0.0 % <=0.2 /100 WBC [facility] Platelet mean volume (Bld) [Entitic vol] 9.6 fL 8.5 - 12.2 fL [facility] Platelets (Bld) [#/Vol] 262 10*3/uL 150 - 393 K/uL [facility] RBC (Bld) [#/Vol] 4.09 10*6/uL [facility] Segmented neutrophils/100 WBC (Bld) 60.1 % [facility] WBC (Bld) [#/Vol] 7.31 10*3/uL 3.99 - 11.19 K/uL [facility] COMPREHENSIVE METABOLIC PANE Bill 08-13-2021 Albumin [Mass/Vol] 4.1 g/dL 3.5 - 5.0 g/dL [facility] ALP [Catalytic activity/Vol] 123 U/L 32 - 126 U/L [facility] ALT [Catalytic activity/Vol] 12 U/L 9 - 48 U/L [facility] Anion gap [Moles/Vol] 12 mmol/L 7 - 17 mmol/L [facility] AST [Catalytic activity/Vol] 17 U/L 10 - 39 U/L [facility] Bilirubin [Mass/Vol] 0.5 mg/dL <1.5 [facility] Calcium [Mass/Vol] 9.4 mg/dL 8.6 - 10. 5 mg/dL [facility] Chloride [Moles/Vol] 104 mmol/L 98 - 10 8 mmol/L [facility] CO2 [Moles/Vol] 27 mmol/L 21 - 31 mmol/L [facility] Creatinine [Mass/Vol] 1.11 mg/dL 0.50 - 1.20 mg/dL [facility] GFR/1.73 sq M.predicted CKD-EPI (S/P/Bld) [Vol rate/Area] 51 Low >=60 mL/min/1.73 m2 [facility] Comment on above: Reported eGFR is bas ed on the CKD-EPI 2020 equation using creatinine, age, and sex. Glucose [Mass/Vol] 120 mg/dL High 70 - 99 mg/dL [facility] Interpretation and review of laboratory results Abnormal [facility] Osmolality Calc [Osmolality] 298 [facility] Potassium [Moles/Vol] 4.8 mmol/L 3.5 - 5.0 mmol/L [facility] Protein [Mass/Vol] 7.1 g/dL 6.4 - 8.3 g/dL [facility] Sodium [Moles/Vol] 138 mmol/L 135 - 145 mmol/L [facility] Urea nitrogen [Mass/Vol] 29 mg/dL High 7 - 25 mg/dL [facility] Urea nitrogen/Creatinine [Mass ratio] 26 mg/mg [facility] LACTATE DEHYDROGENASEon 07-0 Interpretation and review of laboratory results Normal [facility] LDH Lactate to pyruvate reaction [Catalytic activity/Vol] 136 U/L 100 - 190 U/L [facility] No Panel Informationon 08-13 [facility] CBC AND ELECTRONIC DIFFon Basophils (Bld) [#/Vol] 0.06 10*3/uL 0.00 - 0.15 K/uL [facility] Basophils/100 WBC (Bld) 0.7 % [facility] Differential cell count method Nom (Bld) Electronic Differential [facility] Eosinophils (Bld) [#/Vol] 0.25 10*3/uL 0.00 - 0.42 K/uL [facility] Eosinophils/100 WBC (Bld) 2.8 % [facility] Erythrocyte distribution width (RBC) [Ratio] 14.7 % 10.8 - 14.9 % [facility] Hematocrit (Bld) [Volume fraction] 35.7 % 34.9 - 44.3 % [facility] Hemoglobin (Bld) [Mass/Vol] 11.0 g/dL Low 11.4 - 15.2 g/dL [facility] Immature granulocytes (Bld) [#/Vol] 0.10 10*3/uL High <=0.09 [facility] Immature granulocytes/100 WBC (Bld) 1.1 % [facility] Interpretation and review of laboratory results Abnormal [facility] Lymphocytes (Bld) [#/Vol] 1.37 10*3/uL 1.16 - 3.51 K/uL [facility] Lymphocytes/100 WBC (Bld) 15.6 % [facility] MCH (RBC) [Entitic mass] 26.3 pg 25.9 - 33.9 pg [facility] MCHC (RBC) [Mass/Vol] 30.8 g/dL Low 31.4 - 35.9 g/dL [facility] MCV (RBC) [Entitic vol] 85.2 fL 79.6 - 97.7 fL [facility] Monocytes (Bld) [#/Vol] 0.75 10*3/uL 0.22 - 0.87 K/uL [facility] Monocytes/100 WBC (Bld) 8.5 % [facility] Neutrophils (Bld) [#/Vol] 6.27 10*3/uL 1.64 - 7.28 K/uL [facility] Nucleated RBC/100 WBC (Bld) [Ratio] 0.0 % <=0.2 /100 WBC [facility] Platelet mean volume (Bld) [Entitic vol] 9.7 fL 8.5 - 12.2 fL [facility] Platelets (Bld) [#/Vol] 360 10*3/uL 150 - 393 K/uL [facility] RBC (Bld) [#/Vol] 4.19 10*6/uL [facility] Segmented neutrophils/100 WBC (Bld) 71.3 % [facility] WBC (Bld) [#/Vol] 8.80 10*3/uL 3.99 - 11.19 K/uL [facility] COMPREHENSIVE METABOLIC PANE Bill 06-29-2021 Albumin [Mass/Vol] 4.0 g/dL 3.5 - 5.0 g/dL [facility] ALP [Catalytic activity/Vol] 169 U/L High 32 - 126 U/L [facility] ALT [Catalytic activity/Vol] 24 U/L 9 - 48 U/L [facility] Anion gap [Moles/Vol] 13 mmol/L 7 - 17 mmol/L [facility] AST [Catalytic activity/Vol] 18 U/L 10 - 39 U/L [facility] Bilirubin [Mass/Vol] 0.4 mg/dL <1.5 [facility] Calcium [Mass/Vol] 9.5 mg/dL 8.6 - 10. 5 mg/dL [facility] Chloride [Moles/Vol] 103 mmol/L 98 - 10 8 mmol/L [facility] CO2 [Moles/Vol] 28 mmol/L 21 - 31 mmol/L [facility] Creatinine [Mass/Vol] 0.89 mg/dL 0.50 - 1.20 mg/dL [facility] GFR/1.73 sq M.predicted CKD-EPI (S/P/Bld) [Vol rate/Area] 66 >=60 mL/min/1.73 m2 [facility] Comment on above: Reported eGFR is bas ed on the CKD-EPI 2020 equation using creatinine, age, and sex. Glucose [Mass/Vol] 102 mg/dL High 70 - 99 mg/dL [facility] Interpretation and review of laboratory results Abnormal [facility] Osmolality Calc [Osmolality] 295 [facility] Potassium [Moles/Vol] 4.5 mmol/L 3.5 - 5.0 mmol/L [facility] Protein [Mass/Vol] 7.4 g/dL 6.4 - 8.3 g/dL [facility] Sodium [Moles/Vol] 139 mmol/L 135 - 145 mmol/L [facility] Urea nitrogen [Mass/Vol] 20 mg/dL 7 - 25 mg/dL [facility] Urea nitrogen/Creatinine [Mass ratio] 22 mg/mg [facility] LACTATE DEHYDROGENASEon 06-13 Interpretation and review of laboratory results Normal [facility] LDH Lactate to pyruvate reaction [Catalytic activity/Vol] 159 U/L 100 - 190 U/L [facility] No Panel Informationon 06-29 [facility] Absolute lymphocyte counton 06-19-2021 Lymphocytes Auto (Unsp spec) [#/Vol] 1.08 10*3/uL 0.83-4.51 [facility] Work Phone: Basophil percentageon 2021 Basophil percentage 0-5 SEEN /hpf [facility] Work Phone: Basophils/100 WBC (Bld) 0.5 % 0-1 [facility] Work Phone: Bilirubin [Mass/Vol] 0.60 mg/dL 0.20-1.00 [facility] Work Phone: Comment on above: For patients on eltr ombopag therapy, use of Dimension [place] TBIL is not recommended. Chloride [Moles/Vol] 102 mmol/L 98-107 [facility] Work Phone: Eosinophils/100 WBC (Bld) 0.4 % 0-5 [facility] Work Phone: Glucose [Mass/Vol] 100 mg/dL 74-106 [facility] Work Phone: Comment on above: Fasting Glucose resu lt from 100 to 125 mg/dL suggests IMPAIRED HOMEOSTASIS per A.D.A. criteria. Neutrophils (Bld) [#/Vol] 10.3 10*3/uL 2.0-7.7 [facility] Work Phone: Neutrophils/100 WBC (Bld) 80.2 % 47-70 [facility] Work Phone: Potassium [Moles/Vol] 3.7 mmol/L 3.5-5.1 [facility] Work Phone: Comment on above: Slight Hemolysis, Re sult may be falsely increased. Protein [Mass/Vol] 7.6 g/dL 6.4-8.2 [facility] Work Phone: Sodium [Moles/Vol] 136 mmol/L 136-145 [facility] Work Phone: WBC (Bld) [#/Vol] 12.8 10*3/uL 4.4-11.0 [facility] Work Phone: Bilirubin Test strip Ql (U)o n 06-19-2021 Bilirubin Ql (U) Negative Negative [facility] Work Phone: [phone] Blood erythrocytes count (nu mber/volume)on 06-19-2021 RBC (Bld) [#/Vol] 3.98 10*6/uL 4.2-5.4 [facility] Work Phone: Blood hemoglobin measurement (mass/volume)on 06-19-2021 Hemoglobin (Bld) [Mass/Vol] 10.7 g/dL 12.0-15.0 [facility] Work Phone: Blood lymphocytes/100 leukoc yteson 06-19-2021 Lymphocytes/100 WBC (Bld) 8.4 % 19-41 [facility] Work Phone: Blood monocytes/100 leukocyt eson 06-19-2021 Monocytes/100 WBC (Bld) 9.3 % 0-10 [facility] Work Phone: Blood platelet mean volumeon 06-19-2021 Platelet mean volume (Bld) [Entitic vol] 9.8 fL 6.2-12.0 [facility] Work Phone: Determination of erythrocyte mean corpuscular volume (MCV)on 06-19-2021 MCV (RBC) [Entitic vol] 84.7 fL 81-99 [facility] Work Phone: Hematocrit Auto (Bld) [Volum e fraction]on 06-19-2021 Hematocrit (Bld) [Volume fraction] 33.7 % 37-47 [facility] Work Phone: Ketones Test strip Ql (U)on 06-19-2021 Ketones Ql (U) Negative Negative [facility] Work Phone: Laboratory - Chemistry and C hemistry - challengeon 06-19-2021 ALP [Catalytic activity/Vol] 189 U/L 45-117 [facility] Work Phone: ALT [Catalytic activity/Vol] 242 U/L 13-56 [facility] Work Phone: CO2 [Moles/Vol] 29.0 mmol/L 21.0-32.0 [facility] Work Phone: Globulin (S) [Mass/Vol] 4.8 g/dL 2.2-4.2 [facility] Work Phone: Lipase [Catalytic activity/Vol] 51 U/L 73-393 [facility] Work Phone: [phone] Urea nitrogen/Creatinine [Mass ratio] 30.7 mg/mg 10-20 [facility] Work Phone: [phone] Laboratory - Hematology and Cell countson 06-19-2021 Erythrocyte distribution width (RBC) [Entitic vol] 46.6 fL 35.1-43.9 [facility] Work Phone: [phone] Erythrocyte distribution width (RBC) [Ratio] 15.1 % 11.6-14.6 [facility] Work Phone: [phone] Immature granulocytes/100 WBC (Bld) 1.200 % 0.0-0.9 [facility] Work Phone: [phone] Comment on above: IG% - Immature Granu locytes (promyelocytes, myelocytes and metamyelocytes) > 1% indicates that a LEFT SHIFT is Present. MCH (RBC) [Entitic mass] 26.9 pg 27.0-32.0 [facility] Work Phone: [phone] Nucleated RBC/100 WBC (Bld) [Ratio] 0 % 0-5 [facility] Work Phone: [phone] MCHC Auto (RBC) [Mass/Vol]on 06-19-2021 MCHC (RBC) [Mass/Vol] 31.8 g/dL 32-36 [facility] Work Phone: [phone] Mucus LM Ql (Urine sed)on Mucus Ql (Urine sed) 0 SEEN /hpf [facility] Work Phone: [phone] Nitrite Test strip Ql (U)on 06-19-2021 Nitrite Ql (U) Negative Negative [facility] Work Phone: [phone] Panel Informationon 06-19 Estimated Creatinine Clearance Calc 36.08 ml/min [facility] Work Phone: [phone] Estimated GFR (MDRD) Amer 107 mL/min >60 [facility] Work Phone: [phone] Comment on above: GFR Calc Estimated GFR (MDRD) Non-Af Amer 88 mL/min >60 [facility] Work Phone: Comment on above: Non- GFR Calc Troponin I High Sensitivity < 3 pg/mL 3.0-54.0 [facility] Work Phone: Comment on above: Please Note: New [place] t Units and Gender Specific Reference Ranges. For more information see Policy Stat Procedure [place] High Sensitivity Troponin (TNIH) and attachments. Platelets bldon 06-19-2021 Platelets (Bld) [#/Vol] 354 10*3/uL 150-450 [facility] Work Phone: Protein Test strip Ql (U)on 06-19-2021 Protein Ql (U) 30 mg/dl Negative [facility] Work Phone: Serum or plasma albumin margot urement (mass/volume)on 06-19-2021 Albumin [Mass/Vol] 2.8 g/dL 3.2-5.0 [facility] Work Phone: Serum or plasma albumin/glob ulin mass ratioon 06-19-2021 Albumin/Globulin [Mass ratio] 0.6 {ratio} 0.9-2.4 [facility] Work Phone: Serum or plasma calcium margot urement (mass/volume)on 06-19-2021 Calcium [Mass/Vol] 9.2 mg/dL 8.5-10.1 [facility] Work Phone: Serum or plasma creatinine m easurement (mass/volume)on 06-19-2021 Creatinine [Mass/Vol] 0.68 mg/dL 0.55-1.02 [facility] Work Phone: Comment on above: The validity of the calculated GFR & GFRAA in patients over 70 years has not been determined. Clinical correlation is essential. Serum or plasma urea nitroge n measurement (mass/volume)on 06-19-2021 Urea nitrogen [Mass/Vol] 21 mg/dL 7-18 [facility] Work Phone: Squamous epithelial cells de tection in urine sediment by light microscopyon 06-19-2021 Epithelial cells.squamous LM Ql (Urine sed) 0-5 SEEN /hpf [facility] Work Phone: Thin prep Papanicolaou smear with manual screeningon 06-19-2021 Thin prep Papanicolaou smear with manual screening 140 U/L 15-37 [facility] Work Phone: Comment on above: Slight Hemolysis, Re sult may be falsely increased. Thin prep Papanicolaou smear with manual screening 5 5-15 [facility] Work Phone: Urine blood detectionon - RBC Ql (U) 25 /ul Negative [facility] Work Phone: [phone] RBC Ql (U) 0 SEEN /hpf [facility] Work Phone: Urine clarityon 06-19-2021 Clarity (U) Clear Clear [facility] Work Phone: Urine color determinationon 06-19-2021 Color (U) Yellow Yellow [facility] Work Phone: Urine glucose detectionon Glucose Ql (U) Normal mg/dl Normal [facility] Work Phone: Urine leukocyte esterase det ection by dipstickon 06-19-2021 Leukocyte esterase Test strip Ql (U) 100 /ul Negative [facility] Work Phone: Urine pHon 06-19-2021 pH (U) 6.5 [pH] [facility] Work Phone: Urine sediment bacteria coun t by microscopy (number/high power field)on 06-19-2021 Bacteria LM.HPF (Urine sed) [#/Area] 0 /[HPF] None Seen [facility] Work Phone: Urine specific gravity measu rementon 06-19-2021 Specific gravity (U) [Rel density] 1.010 [facility] Work Phone: Urobilinogen Auto test strip Ql (U)on 06-19-2021 Urobilinogen Ql (U) Normal mg/dl Normal [facility] Work Phone: CBC,PLATELETSon 05-04-2022 Erythrocyte distribution width (RBC) [Ratio] 15.1 % High 10.8 - 14.9 % [facility] Hematocrit (Bld) [Volume fraction] 35.4 % 34.9 - 44.3 % [facility] Hemoglobin (Bld) [Mass/Vol] 11.2 g/dL Low 11.4 - 15.2 g/dL [facility] Interpretation and review of laboratory results Abnormal [facility] MCH (RBC) [Entitic mass] 27.1 pg 25.9 - 33.9 pg [facility] MCHC (RBC) [Mass/Vol] 31.6 g/dL 31.4 - 35.9 g/dL [facility] MCV (RBC) [Entitic vol] 85.7 fL 79.6 - 97.7 fL [facility] Platelet mean volume (Bld) [Entitic vol] 9.7 fL 8.5 - 12.2 fL [facility] Platelets (Bld) [#/Vol] 390 10*3/uL 150 - 393 K/uL [facility] RBC (Bld) [#/Vol] 4.13 10*6/uL [facility] WBC (Bld) [#/Vol] 9.87 10*3/uL 3.99 - 11.19 K/uL [facility] CHEM 6 (LYTES, BUN CREA)on 0 06-16-2021 Anion gap [Moles/Vol] 11 mmol/L 7 - 17 mmol/L [facility] Chloride [Moles/Vol] 101 mmol/L 98 - 10 8 mmol/L [facility] CO2 [Moles/Vol] 28 mmol/L 21 - 31 mmol/L [facility] Creatinine [Mass/Vol] 0.86 mg/dL 0.50 - 1.20 mg/dL [facility] GFR/1.73 sq M.predicted CKD-EPI (S/P/Bld) [Vol rate/Area] 69 >=60 mL/min/1.73 m2 [facility] Comment on above: Reported eGFR is bas ed on the CKD-EPI 2020 equation using creatinine, age, and sex. Potassium [Moles/Vol] 4.4 mmol/L 3.5 - 5.0 mmol/L [facility] Sodium [Moles/Vol] 136 mmol/L 135 - 145 mmol/L [facility] Urea nitrogen [Mass/Vol] 23 mg/dL 7 - 25 mg/dL [facility] Urea nitrogen/Creatinine [Mass ratio] 27 mg/mg [facility] HEPATIC FUNCTION PANELon Albumin [Mass/Vol] 4.2 g/dL 3.5 - 5.0 g/dL [facility] ALP [Catalytic activity/Vol] 178 U/L High 32 - 126 U/L [facility] ALT [Catalytic activity/Vol] 130 U/L High 9 - 48 U/L [facility] AST [Catalytic activity/Vol] 138 U/L High 10 - 39 U/L [facility] Bilirubin [Mass/Vol] 0.6 mg/dL <1.5 [facility] Bilirubin.direct [Mass/Vol] 0.1 mg/dL <0.3 [facility] Protein [Mass/Vol] 7.5 g/dL 6.4 - 8.3 g/dL [facility] LACTATE DEHYDROGENASEon LDH Lactate to pyruvate reaction [Catalytic activity/Vol] 302 U/L High 100 - 190 U/L [facility] No Panel Informationon 06-16 Interpretation and review of laboratory results Abnormal [facility] Absolute lymphocyte counton 06-08-2021 Lymphocytes Auto (Unsp spec) [#/Vol] 1.83 10*3/uL 0.83-4.51 [facility] Work Phone: Basophil percentageon 2021 Basophils/100 WBC (Bld) 0.8 % 0-1 [facility] Work Phone: Bilirubin [Mass/Vol] 0.50 mg/dL 0.20-1.00 [facility] Work Phone: Comment on above: For patients on eltr ombopag therapy, use of Dimension [place] TBIL is not recommended. Chloride [Moles/Vol] 104 mmol/L 98-107 [facility] Work Phone: Eosinophils/100 WBC (Bld) 4.3 % 0-5 [facility] Work Phone: Glucose [Mass/Vol] 95 mg/dL 74-106 [facility] Work Phone: Neutrophils (Bld) [#/Vol] 7.4 10*3/uL 2.0-7.7 [facility] Work Phone: Neutrophils/100 WBC (Bld) 66.4 % 47-70 [facility] Work Phone: Potassium [Moles/Vol] 3.7 mmol/L 3.5-5.1 [facility] Work Phone: Protein [Mass/Vol] 7.4 g/dL 6.4-8.2 [facility] Work Phone: Sodium [Moles/Vol] 138 mmol/L 136-145 [facility] Work Phone: WBC (Bld) [#/Vol] 11.1 10*3/uL 4.4-11.0 [facility] Work Phone: Blood erythrocytes count (nu mber/volume)on 06-08-2021 RBC (Bld) [#/Vol] 4.10 10*6/uL 4.2-5.4 [facility] Work Phone: Blood hemoglobin measurement (mass/volume)on 06-08-2021 Hemoglobin (Bld) [Mass/Vol] 11.3 g/dL 12.0-15.0 [facility] Work Phone: Blood lymphocytes/100 leukoc yteson 06-08-2021 Lymphocytes/100 WBC (Bld) 16.5 % 19-41 [facility] Work Phone: Blood monocytes/100 leukocyt eson 06-08-2021 Monocytes/100 WBC (Bld) 11.1 % 0-10 [facility] Work Phone: [phone] Blood platelet mean volumeon 06-08-2021 Platelet mean volume (Bld) [Entitic vol] 9.1 fL 6.2-12.0 [facility] Work Phone: [phone] Determination of erythrocyte mean corpuscular volume (MCV)on 06-08-2021 MCV (RBC) [Entitic vol] 87.3 fL 81-99 [facility] Work Phone: [phone] Hematocrit Auto (Bld) [Volum e fraction]on 06-08-2021 Hematocrit (Bld) [Volume fraction] 35.8 % 37-47 [facility] Work Phone: [phone] Laboratory - Chemistry and C hemistry - challengeon 06-08-2021 ALP [Catalytic activity/Vol] 120 U/L 45-117 [facility] Work Phone: [phone] ALT [Catalytic activity/Vol] 36 U/L 13-56 [facility] Work Phone: [phone] CO2 [Moles/Vol] 28.0 mmol/L 21.0-32.0 [facility] Work Phone: [phone] Globulin (S) [Mass/Vol] 4.1 g/dL 2.2-4.2 [facility] Work Phone: [phone] Urea nitrogen/Creatinine [Mass ratio] 16.3 mg/mg 10-20 [facility] Work Phone: [phone] Laboratory - Hematology and Cell countson 06-08-2021 Erythrocyte distribution width (RBC) [Entitic vol] 47.1 fL 35.1-43.9 [facility] Work Phone: [phone] Erythrocyte distribution width (RBC) [Ratio] 14.7 % 11.6-14.6 [facility] Work Phone: [phone] Immature granulocytes/100 WBC (Bld) 0.900 % 0.0-0.9 [facility] Work Phone: [phone] Comment on above: IG% - Immature Granu locytes (promyelocytes, myelocytes and metamyelocytes) > 1% indicates that a LEFT SHIFT is Present. MCH (RBC) [Entitic mass] 27.6 pg 27.0-32.0 [facility] Work Phone: [phone] Nucleated RBC/100 WBC (Bld) [Ratio] 0 % 0-5 [facility] Work Phone: [phone] MCHC Auto (RBC) [Mass/Vol]on 06-08-2021 MCHC (RBC) [Mass/Vol] 31.6 g/dL 32-36 [facility] Work Phone: [phone] No Panel Informationon 06-08 Estimated Creatinine Clearance Calc 41.95 ml/min [facility] Work Phone: [phone] Estimated GFR (MDRD) Amer 82 mL/min >60 [facility] Work Phone: [phone] Comment on above: GFR Calc Estimated GFR (MDRD) Non-Af Amer 68 mL/min >60 [facility] Work Phone: [phone] Comment on above: Non- GFR Calc Platelets bldon 06-08-2021 Platelets (Bld) [#/Vol] 327 10*3/uL 150-450 [facility] Work Phone: [phone] Serum or plasma albumin margot urement (mass/volume)on 06-08-2021 Albumin [Mass/Vol] 3.3 g/dL 3.2-5.0 [facility] Work Phone: [phone] Serum or plasma albumin/glob ulin mass ratioon 06-08-2021 Albumin/Globulin [Mass ratio] 0.8 {ratio} 0.9-2.4 [facility] Work Phone: [phone] Serum or plasma calcium margot urement (mass/volume)on 06-08-2021 Calcium [Mass/Vol] 8.7 mg/dL 8.5-10.1 [facility] Work Phone: [phone] Serum or plasma creatinine m easurement (mass/volume)on 06-08-2021 Creatinine [Mass/Vol] 0.86 mg/dL 0.55-1.02 [facility] Work Phone: [phone] Comment on above: The validity of the calculated GFR & GFRAA in patients over 70 years has not been determined. Clinical correlation is essential. Serum or plasma urea nitroge n measurement (mass/volume)on 06-08-2021 Urea nitrogen [Mass/Vol] 14 mg/dL 7-18 [facility] Work Phone: Thin prep Papanicolaou smear with manual screeningon 06-08-2021 Thin prep Papanicolaou smear with manual screening 35 U/L 15-37 [facility] Work Phone: Thin prep Papanicolaou smear with manual screening 6 5-15 [facility] Work Phone: AMMONIAon 06-01-2021 Ammonia (P) [Moles/Vol] 49 umol/L High 6 - 47 umol/L [facility] Interpretation and review of laboratory results Abnormal [facility] CALCIUMon 06-01-2021 Calcium [Mass/Vol] 8.5 mg/dL Low 8.6 - 10. 5 mg/dL [facility] CBC AND ELECTRONIC DIFFon Basophils (Bld) [#/Vol] 10*3/uL 0.00 - 0.15 K/uL [facility] Basophils/100 WBC (Bld) 0.1 % [facility] DIFF STATUS Electronic Differential [facility] Eosinophils (Bld) [#/Vol] 10*3/uL 0.00 - 0.42 K/uL [facility] Eosinophils/100 WBC (Bld) 0.0 % [facility] Erythrocyte distribution width (RBC) [Ratio] 15.2 % High 10.8 - 14.9 % [facility] Hematocrit (Bld) [Volume fraction] 32.0 % Low 34.9 - 44.3 % [facility] Hemoglobin (Bld) [Mass/Vol] 10.1 g/dL Low 11.4 - 15.2 g/dL [facility] Immature granulocytes (Bld) [#/Vol] 0.05 10*3/uL <=0.09 [facility] Immature granulocytes/100 WBC (Bld) 0.4 % [facility] Interpretation and review of laboratory results Abnormal [facility] Lymphocytes (Bld) [#/Vol] 0.94 10*3/uL Low 1.16 - 3.51 K/uL [facility] Lymphocytes/100 WBC (Bld) 8.3 % [facility] MCH (RBC) [Entitic mass] 27.2 pg 25.9 - 33.9 pg [facility] MCHC (RBC) [Mass/Vol] 31.6 g/dL 31.4 - 35.9 g/dL [facility] MCV (RBC) [Entitic vol] 86.3 fL 79.6 - 97.7 fL [facility] Monocytes (Bld) [#/Vol] 0.61 10*3/uL 0.22 - 0.87 K/uL [facility] Monocytes/100 WBC (Bld) 5.4 % [facility] Neutrophils (Bld) [#/Vol] 9.68 10*3/uL High 1.64 - 7.28 K/uL [facility] Nucleated RBC/100 WBC (Bld) [Ratio] 0.0 % <=0.2 /100 WBC [facility] Platelet mean volume (Bld) [Entitic vol] 10.1 fL 8.5 - 12.2 fL [facility] Platelets (Bld) [#/Vol] 255 10*3/uL 150 - 393 K/uL [facility] RBC (Bld) [#/Vol] 3.71 10*6/uL Low [facility] Segmented neutrophils/100 WBC (Bld) 85.8 % [facility] WBC (Bld) [#/Vol] 11.29 10*3/uL High 3.99 - 11.19 K/uL [facility] CHEM 7 (LYTES,BUN,CREA,GLUC) on 06-01-2021 Anion gap [Moles/Vol] 15 mmol/L 7 - 17 mmol/L [facility] Chloride [Moles/Vol] 104 mmol/L 98 - 10 8 mmol/L [facility] CO2 [Moles/Vol] 25 mmol/L 21 - 31 mmol/L [facility] Creatinine [Mass/Vol] 0.77 mg/dL 0.50 - 1.20 mg/dL [facility] GFR/1.73 sq M.predicted CKD-EPI (S/P/Bld) [Vol rate/Area] 78 >=60 mL/min/1.73 m2 [facility] Comment on above: Reported eGFR is bas ed on the CKD-EPI 2020 equation using creatinine, age, and sex. Glucose [Mass/Vol] 136 mg/dL High 70 - 99 mg/dL [facility] Osmolality Calc [Osmolality] 299 [facility] Potassium [Moles/Vol] 4.4 mmol/L 3.5 - 5.0 mmol/L [facility] Sodium [Moles/Vol] 140 mmol/L 135 - 145 mmol/L [facility] Urea nitrogen [Mass/Vol] 23 mg/dL 7 - 25 mg/dL [facility] Urea nitrogen/Creatinine [Mass ratio] 30 mg/mg [facility] HEPATIC FUNCTION PANELOrdere d By: José Trujillo on 06-01-2021 Albumin [Mass/Vol] 3.4 g/dL Low 3.5 - 5.0 g/dL [facility] ALP [Catalytic activity/Vol] 75 U/L 32 - 126 U/L [facility] ALT [Catalytic activity/Vol] 8 U/L Low 9 - 48 U/L [facility] AST [Catalytic activity/Vol] 15 U/L 10 - 39 U/L [facility] Bilirubin [Mass/Vol] 0.4 mg/dL <1.5 [facility] Bilirubin.direct [Mass/Vol] 0.1 mg/dL <0.3 [facility] Interpretation and review of laboratory results Abnormal [facility] Protein [Mass/Vol] 5.7 g/dL Low 6.4 - 8.3 g/dL [facility] LACTATE DEHYDROGENASEon 04-1 9-2022 LDH Lactate to pyruvate reaction [Catalytic activity/Vol] 140 U/L 100 - 190 U/L [facility] MAGNESIUMon 06-01-2021 Magnesium [Mass/Vol] 1.8 mg/dL 1.6 - 2 .6 mg/dL [facility] No Panel Informationon 06-01 Interpretation and review of laboratory results Abnormal [facility] Interpretation and review of laboratory results Normal [facility] PHOSPHATE, INORGANICon 06-01 Phosphate [Mass/Vol] 3.5 mg/dL 2.2 - 4 .6 mg/dL [facility] CALCIUMon 05-31-2021 Calcium [Mass/Vol] 9.6 mg/dL 8.6 - 10. 5 mg/dL [facility] Interpretation and review of laboratory results Normal [facility] CBC AND ELECTRONIC DIFFOrder ed By: Iris Bhatia on 05-31-2021 Basophils (Bld) [#/Vol] 10*3/uL 0.00 - 0.15 K/uL [facility] Basophils/100 WBC (Bld) 0.4 % [facility] DIFF STATUS Electronic Differential [facility] Eosinophils (Bld) [#/Vol] 10*3/uL 0.00 - 0.42 K/uL [facility] Eosinophils/100 WBC (Bld) 0.0 % [facility] Erythrocyte distribution width (RBC) [Ratio] 15.0 % High 10.8 - 14.9 % [facility] Hematocrit (Bld) [Volume fraction] 36.5 % 34.9 - 44.3 % [facility] Hemoglobin (Bld) [Mass/Vol] 11.9 g/dL 11.4 - 15.2 g/dL [facility] Immature granulocytes (Bld) [#/Vol] 10*3/uL <=0.09 K/uL [facility] Immature granulocytes/100 WBC (Bld) 0.2 % [facility] Interpretation and review of laboratory results Abnormal [facility] Lymphocytes (Bld) [#/Vol] 0.93 10*3/uL Low 1.16 - 3.51 K/uL [facility] Lymphocytes/100 WBC (Bld) 18.1 % [facility] MCH (RBC) [Entitic mass] 27.9 pg 25.9 - 33.9 pg [facility] MCHC (RBC) [Mass/Vol] 32.6 g/dL 31.4 - 35.9 g/dL [facility] MCV (RBC) [Entitic vol] 85.7 fL 79.6 - 97.7 fL [facility] Monocytes (Bld) [#/Vol] 10*3/uL Low 0.22 - 0.87 K/uL [facility] Monocytes/100 WBC (Bld) 0.6 % [facility] Neutrophils (Bld) [#/Vol] 4.14 10*3/uL 1.64 - 7.28 K/uL [facility] Nucleated RBC/100 WBC (Bld) [Ratio] 0.0 % <=0.2 /100 WBC [facility] Platelet mean volume (Bld) [Entitic vol] 10.0 fL 8.5 - 12.2 fL [facility] Platelets (Bld) [#/Vol] 293 10*3/uL 150 - 393 K/uL [facility] RBC (Bld) [#/Vol] 4.26 10*6/uL [facility] Segmented neutrophils/100 WBC (Bld) 80.7 % [facility] WBC (Bld) [#/Vol] 5.13 10*3/uL 3.99 - 11.19 K/uL [facility] CHEM 7 (LYTES,BUN,CREA,GLUC) on 05-31-2021 Anion gap [Moles/Vol] 17 mmol/L 7 - 17 mmol/L [facility] Chloride [Moles/Vol] 103 mmol/L 98 - 10 8 mmol/L [facility] CO2 [Moles/Vol] 24 mmol/L 21 - 31 mmol/L [facility] Creatinine [Mass/Vol] 0.91 mg/dL 0.50 - 1.20 mg/dL [facility] GFR/1.73 sq M.predicted CKD-EPI (S/P/Bld) [Vol rate/Area] 64 >=60 mL/min/1.73 m2 [facility] Comment on above: Reported eGFR is bas ed on the CKD-EPI 2020 equation using creatinine, age, and sex. Glucose [Mass/Vol] 148 mg/dL High 70 - 99 mg/dL [facility] Interpretation and review of laboratory results Abnormal [facility] Osmolality Calc [Osmolality] 299 [facility] Potassium [Moles/Vol] 4.3 mmol/L 3.5 - 5.0 mmol/L [facility] Sodium [Moles/Vol] 140 mmol/L 135 - 145 mmol/L [facility] Urea nitrogen [Mass/Vol] 20 mg/dL 7 - 25 mg/dL [facility] Urea nitrogen/Creatinine [Mass ratio] 22 mg/mg [facility] HEPATIC FUNCTION PANELon Albumin [Mass/Vol] 4.4 g/dL 3.5 - 5.0 g/dL [facility] ALP [Catalytic activity/Vol] 106 U/L 32 - 126 U/L [facility] ALT [Catalytic activity/Vol] 11 U/L 9 - 48 U/L [facility] AST [Catalytic activity/Vol] 18 U/L 10 - 39 U/L [facility] Bilirubin [Mass/Vol] 0.5 mg/dL <1.5 [facility] Bilirubin.direct [Mass/Vol] 0.1 mg/dL <0.3 [facility] Protein [Mass/Vol] 7.6 g/dL 6.4 - 8.3 g/dL [facility] LACTATE DEHYDROGENASEon 05-14 LDH Lactate to pyruvate reaction [Catalytic activity/Vol] 176 U/L 100 - 190 U/L [facility] MAGNESIUMon 05-31-2021 Magnesium [Mass/Vol] 1.7 mg/dL 1.6 - 2 .6 mg/dL [facility] No Panel InformationOrdered By: Marciano Quesada on 05-31-2021 Interpretation and review of laboratory results [facility] No Panel Informationon 05-31 [facility] OCCLUS[facility]/EMBOLIZATION ENDOV ASCULAR TUMORS/ORGAN ISCHEMNon 05-31-2021 IMPRESSION: Technically successful transarterial bland embolization of the right hepatic lobe. PLAN: 1. Strict bedrest with the right lower extremity extended for 2 hours. 2. Symptomatic and pain management. 3. Octreotide drip in recovery. 4. IR post-TAE clinic visit in 2 weeks. Humberto Rush M.D. was in the room and participated during all ann portions of this procedure. 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 Operators: Humberto Rush MD Consent: Following discussion of the risks, benefits and alternatives of the procedure, written informed consent was obtained. Moderate Sedation: I performed Moderate Sedation which included the presence of a nurse that assisted in monitoring the patients level of consciousness and physiological status. After administration of sedative medication(s), I spent 60 minutes of continuous [id number] time with the patient. COMPARISON: Prior study from 03/22/2021. TIME OUT: Prior to the procedure a time out was performed in the presence of the patient and all personnel involved in this case. The patient identity, procedure type, procedure side/site, and allergies were verified. PROCEDURAL TECHNIQUE AND FINDINGS: Procedures performed: 1. Right common femoral artery ultrasound-guided access. 2. Selective celiac diagnostic arteriogram. 3. Indirect diagnostic portography. 4. Superselective right hepatic diagnostic arteriogram. 5. Diagnostic Cone beam CT of the targeted right hepatic arterial distribution. 6. [place] embolization of the targeted right hepatic artery. 7. Completion diagnostic angiography of the right hepatic artery. 8. Arteriotomy closure utilizing a Mynx closure device. Position: The patient was transferred to the IR laboratory and was positioned supine on the procedural table. The right groin was prepped and draped using maximum sterile barrier technique. This consisted of cap, mask, hand hygiene, sterile gown and gloves, 2% Chlorhexidine solution for cutaneous antisepsis and occlusive sterile draping of the field. Procedure: Utilizing the modified Seldinger technique, access was obtained into a patent right common femoral artery and a 5-F sheath was placed. Access was obtained utilizing ultrasound guidance, and an image was saved in the imaging archive system for documentation. Right common femoral artery diagnostic angiogram was performed through the sheath evaluating the access site. A 5-F directional catheter was introduced through the sheath and used to select the celiac trunk followed by diagnostic angiography, with visualization of the delayed portal venous phase. Through the base catheter, a microcatheter and wire were used to select the right hepatic artery, followed by diagnostic angiography. Diagnostic cone beam CT was further performed to evaluate the targeted arterial distribution, and additional 3D images were created on a separate workstation, which were interpreted by the interventional radiologist during the procedure. [place] embolization of the right hepatic artery was next performed using 100 um microspheres until near stasis of contrast was achieved. A completion postembolization arteriogram was performed. At the end of the procedure, the catheters and sheath were removed, and hemostasis was achieved using Mynx closure device. FINDINGS: Right common femoral arteriogram demonstrated access within the common femoral artery suitable for use of a closure device. Celiac angiogram demonstrated conventional branching including a right and left hepatic arteries. A patent portal vein was noted on the delayed venous phase. Right hepatic arteriogram demonstrated the targeted right hepatic lobe arterial distribution, which was further confirmed by cone beam CT. Post embolization angiogram demonstrated near stasis of contrast. RADIOLOGY U [place] [facility] Study observation (narrative) [facility] PHOSPHATE, INORGANICOrdered By: Marciano Quesada on 05-31-2021 Phosphate [Mass/Vol] 3.4 mg/dL 2.2 - 4 .6 mg/dL [facility] PT,INR,PTTon 05-31-2021 aPTT Coag (PPP) [Time] 26.9 s [facility] INR Coag (Bld) [Relative time] 1.0 {INR} [facility] Interpretation and review of laboratory results Normal [facility] PT Coag (PPP) [Time] 13.2 s [facility] Laboratory - Microbiology an d Antimicrobial susceptibilityon 05-27-2021 SARS-CoV-2 (COVID-19) RNA JEROMY+probe Ql (Unsp spec) Not detected [facility] Work Phone: No Panel Informationon 05-27 Influenza Types A,B Rapid (Clinic) Not detected [facility] Work Phone: No Panel Informationon 05-11 Miscellaneous Test See comment [facility] Work Phone: Comment on above: TEST RESULT LIMITSCh romogranin A, 83.4 ng/mL 0.0-101.8Chromogranin A performed by [employer]/Kod[employer] methodologyValues obtained with different assay methods or kits cannot be used interchangeably. TESTING PERFORMED AT [facility]. ORIGINAL REPORT ON FILE IN LAB CONTAINS ADDITIONAL TEST SITE INFORMATION. Basophil percentageon 2021 Basophil percentage 3.5 mg/dL 2.5-4.9 [facility] Work Phone: Chloride [Moles/Vol] 103 mmol/L 98-107 [facility] Work Phone: Glucose [Mass/Vol] 107 mg/dL 74-106 [facility] Work Phone: Comment on above: Fasting Glucose resu lt from 100 to 125 mg/dL suggests IMPAIRED HOMEOSTASIS per A.D.A. criteria. Potassium [Moles/Vol] 4.2 mmol/L 3.5-5.1 [facility]: Sodium [Moles/Vol] 139 mmol/L 136-145 [facility] Work Phone: Laboratory - Chemistry and C hemistry - challengeon 04-14-2021 CO2 [Moles/Vol] 30.0 mmol/L 21.0-32.0 [facility] Work Phone: Urea nitrogen/Creatinine [Mass ratio] 19.5 mg/mg 10-20 [facility] Work Phone: No Panel Informationon 04-14 Estimated GFR (MDRD) Amer 75 mL/min >60 [facility] Work Phone: Comment on above: GFR Calc Estimated GFR (MDRD) Non-Af Amer 62 mL/min >60 [facility] Work Phone: Comment on above: Non- GFR Calc Parathyroid Hormone (Intact) 83.1 pg/mL 18.4-80.1 [facility] Work Phone: Vitamin D 25-Hydroxy 32.7 ng/mL [facility] Work Phone: Comment on above: Vitamin D 25(OH) Sta tus Range Deficiency <20 ng/mL (50nmol/L) Insufficiency 20 - 30 ng/mL (50 - 75 nmol/L) Sufficiency 30 - 100 ng/mL (75 - 250 nmol/L) Toxicity >100 ng/mL (>250 nmol/L) Serum or plasma albumin margot urement (mass/volume)on 04-14-2021 Albumin [Mass/Vol] 3.5 g/dL 3.2-5.0 [facility] Work Phone: Serum or plasma calcium margot urement (mass/volume)on 04-14-2021 Calcium [Mass/Vol] 9.3 mg/dL 8.5-10.1 [facility] Work Phone: Serum or plasma creatinine m easurement (mass/volume)on 04-14-2021 Creatinine [Mass/Vol] 0.92 mg/dL 0.55-1.02 [facility] Work Phone: Comment on above: The validity of the calculated GFR & GFRAA in patients over 70 years has not been determined. Clinical correlation is essential. Serum or plasma urea nitroge n measurement (mass/volume)on 04-14-2021 Urea nitrogen [Mass/Vol] 18 mg/dL 7-18 [facility] Work Phone: Iron measurement (mass/mass) on 04-13-2021 Iron (Unsp spec) [Mass/Mass] 51 ug/dL 50-170 [facility] Work Phone: [phone] Laboratory - Chemistry and C hemistry - challengeon 04-13-2021 Cobalamin (Vitamin B12) [Mass/Vol] 548 pg/mL 211-911 [facility] Work Phone: [phone] No Panel Informationon 04-13 Total Iron Binding Capacity 480 ug/dL 250-450 [facility] Work Phone: [phone] Serum or plasma ferritin neil surement (mass/volume)on 04-13-2021 Ferritin [Mass/Vol] 26 ng/mL 8-252 [facility] Work Phone: [phone] Serum or plasma iron saturat ion measurement (mass fraction)on 04-13-2021 Iron saturation [Mass fraction] 10.6 % 15.0-55.0 [facility] Work Phone: Laboratory - Microbiology an d Antimicrobial susceptibilityon 03-17-2021 SARS-CoV-2 (COVID-19) RNA JEROMY+probe Ql (Unsp spec) Not detected Not Detect [facility] Work Phone: Comment on above: Normal Reference Ran ge: Not DetectedMethod:(RT-PCR) real-time reverse transcriptase PCRLuminex REN Instrument*The Food and Drug Administration (FDA) has issued an Emergency Use Authorization (EAU) for the REN SARS-CoV-2 Assay for the rapid detection of the virus that causes COVID-19. This test has been validated, but the FDAs independent review of this validation is pending.*Negative results do not preclude infection and should not be used as the sole basis for treatment or patient management. Optimum specimen types and timing for peak viral levels during infections caused by SARS-CoV-2 have not been determined. Collection of multiple specimens from the same patient may be necessary to detect the virus. The possibility of a false negative result should be considered if the patient has clinical presentation or has had recent exposure. Laboratory - Microbiology an d Antimicrobial susceptibilityon 03-04-2021 SARS-CoV-2 (COVID-19) RNA JEROMY+probe Ql (Unsp spec) Not detected Not Detect [facility] Work Phone: Comment on above: Normal Reference Ran ge: Not DetectedMethod:(RT-PCR) real-time reverse transcriptase PCRLuminex REN Instrument*The Food and Drug Administration (FDA) has issued an Emergency Use Authorization (EAU) for the [employer] SARS-CoV-2 Assay for the rapid detection of the virus that causes COVID-19. This test has been validated, but the FDAs independent review of this validation is pending.*Negative results do not preclude infection and should not be used as the sole basis for treatment or patient management. Optimum specimen types and timing for peak viral levels during infections caused by SARS-CoV-2 have not been determined. Collection of multiple specimens from the same patient may be necessary to detect the virus. The possibility of a false negative result should be considered if the patient has clinical presentation or has had recent exposure. INR in Blood by Coagulation assayon 09-17-2020 INR Coag (Bld) [Relative time] 1.0 {INR} [facility] Laboratory - Coagulationon 0 09-17-2020 aPTT Coag (Bld) [Time] 29.8 s 24.1-36.2 [facility] PT Coag (PPP) [Time] 13.0 s 11.7-14.9 [facility] Thin prep Papanicolaou smear with manual screeningon 09-17-2020 Thin prep Papanicolaou smear with manual screening 201 U/L 84-246 [facility] Vital Signs Date Time Vital Sign Value Performing Clinician Facility 12-13-2024 12:47-0400 Body temperature 98.1 [degF] [facility] 12-13-2024 12:47-0400 Diastolic blood pressure 58 mm[Hg] [facility] 12-13-2024 12:47-0400 Heart rate 69 /min [facility] 12-13-2024 12:47-0400 Respiratory rate 16 /min [facility] 12-13-2024 12:47-0400 SaO2% (BldA) [Mass fraction] 98 % [facility] 12-13-2024 12:47-0400 Systolic blood pressure 117 mm[Hg] [facility] 11-08-2024 08:29-0400 Body height 152.4 cm Therese Otilia FINANCIAL SERVICES MANAGER-TRUCK LEASING MANAGER Work Phone: [facility] 11-08-2024 08:29-0400 Body mass index (BMI) [Ratio] 27.34 kg/m2 Therese Otilia FINANCIAL SERVICES MANAGER-TRUCK LEASING MANAGER Work Phone: [facility] 11-08-2024 08:29-0400 Body temperature 97.2 [degF] Therese Otilia FINANCIAL SERVICES MANAGER-TRUCK LEASING MANAGER Work Phone: [facility] 11-08-2024 08:29-0400 Body weight 63.5 kg Therese Otilia FINANCIAL SERVICES MANAGER-TRUCK LEASING MANAGER Work Phone: [facility] 11-08-2024 08:29-0400 Diastolic blood pressure 60 mm[Hg] Therese Otilia FINANCIAL SERVICES MANAGER-TRUCK LEASING MANAGER Work Phone: [facility] 11-08-2024 08:29-0400 Heart rate 80 /min Therese Otilia FINANCIAL SERVICES MANAGER-TRUCK LEASING MANAGER Work Phone: [facility] 11-08-2024 08:29-0400 Respiratory rate 16 /min Therese Otilia FINANCIAL SERVICES MANAGER-TRUCK LEASING MANAGER Work Phone: [facility] 11-08-2024 08:29-0400 SaO2% (BldA) [Mass fraction] 97 % Therese Otilia FINANCIAL SERVICES MANAGER-TRUCK LEASING MANAGER Work Phone: [facility] 11-08-2024 08:29-0400 Systolic blood pressure 132 mm[Hg] Therese Bingham FINANCIAL SERVICES MANAGER-TRUCK LEASING MANAGER Work Phone: [facility] 09-20-2024 10:30-0400 Body temperature 97.81 [degF] [facility] 09-20-2024 10:30-0400 Diastolic blood pressure 49 mm[Hg] [facility] 09-20-2024 10:30-0400 Heart rate 68 /min [facility] 09-20-2024 10:30-0400 Respiratory rate 16 /min [facility] 09-20-2024 10:30-0400 SaO2% (BldA) [Mass fraction] 97 % [facility] 09-20-2024 10:30-0400 Systolic blood pressure 104 mm[Hg] [facility] 09-20-2024 07:40-0400 Body height 152.4 cm [facility] 09-20-2024 07:40-0400 Body mass index (BMI) [Ratio] 27.42 kg/m2 [facility] 09-20-2024 07:40-0400 Body weight 63.69 kg [facility] 09-18-2024 08:34-0400 Body height 152.4 cm Tiffany FLORES Work Phone: [facility] 09-18-2024 08:34-0400 Body mass index (BMI) [Ratio] 27.73 kg/m2 Tiffany Marjohnny FLORES Work Phone: [facility] 09-18-2024 08:34-0400 Body weight 64.41 kg Tiffany FLORES Work Phone: [facility] 09-18-2024 08:34-0400 Diastolic blood pressure 60 mm[Hg] Eneidai Marar MBBS Work Phone: [facility] 09-18-2024 08:34-0400 Heart rate 86 /min Eneidai Marar MBBS Work Phone: [facility] 09-18-2024 08:34-0400 Respiratory rate 16 /min Eneidai Marar MBBS Work Phone: [facility] 09-18-2024 08:34-0400 SaO2% (BldA) [Mass fraction] 99 % Tiffany Marar MBBS Work Phone: [facility] 09-18-2024 08:34-0400 Systolic blood pressure 126 mm[Hg] Eneidai Marar MBBS Work Phone: [facility] 09-06-2024 10:05-0400 Body height 152.4 cm Clint Pazin FINANCIAL SERVICES MANAGER-TRUCK LEASING MANAGER Work Phone: [facility] 09-06-2024 10:05-0400 Body mass index (BMI) [Ratio] 27.15 kg/m2 Clint Pzain FINANCIAL SERVICES MANAGER-TRUCK LEASING MANAGER Work Phone: [facility] 09-06-2024 10:05-0400 Body temperature 97.3 [degF] Clint Pazin FINANCIAL SERVICES MANAGER-TRUCK LEASING MANAGER Work Phone: [facility] 09-06-2024 10:05-0400 Body weight 63.05 kg Clint Pazin FINANCIAL SERVICES MANAGER-TRUCK LEASING MANAGER Work Phone: [facility] 09-06-2024 10:05-0400 Diastolic blood pressure 56 mm[Hg] Clint Pazin FINANCIAL SERVICES MANAGER-TRUCK LEASING MANAGER Work Phone: [facility] 09-06-2024 10:05-0400 Heart rate 94 /min Clintgustavo Pazin FINANCIAL SERVICES MANAGER-TRUCK LEASING MANAGER Work Phone: [facility] 09-06-2024 10:05-0400 Respiratory rate 16 /min Clint Diaz FINANCIAL SERVICES MANAGER-TRUCK LEASING MANAGER Work Phone: [facility] 09-06-2024 10:05-0400 SaO2% (BldA) [Mass fraction] 97 % Clint Diaz FINANCIAL SERVICES MANAGER-TRUCK LEASING MANAGER Work Phone: [facility] 09-06-2024 10:05-0400 Systolic blood pressure 122 mm[Hg] Clint Diaz FINANCIAL SERVICES MANAGER-TRUCK LEASING MANAGER Work Phone: [facility] 07-26-2024 09:53-0400 Body temperature 97.9 [degF] [facility] 07-26-2024 09:53-0400 Diastolic blood pressure 53 mm[Hg] [facility] 07-26-2024 09:53-0400 Heart rate 63 /min [facility] 07-26-2024 09:53-0400 Respiratory rate 18 /min [facility] 07-26-2024 09:53-0400 SaO2% (BldA) [Mass fraction] 96 % [facility] 07-26-2024 09:53-0400 Systolic blood pressure 111 mm[Hg] [facility] 07-26-2024 08:17-0400 Body mass index (BMI) [Ratio] 27.54 kg/m2 [facility] 07-26-2024 08:17-0400 Body weight 63.96 kg [facility] 06-11-2024 22:06-0400 Body temperature 98.6 [degF] Dr. Blanca Cruz MD Work Phone: [facility] 06-11-2024 22:06-0400 Diastolic blood pressure 86 mm[Hg] Dr. Blanca Cruz MD Work Phone: [facility] 06-11-2024 22:06-0400 Heart rate 72 /min Dr. Blanca Cruz MD Work Phone: [facility] 06-11-2024 22:06-0400 Respiratory rate 18 /min Dr. Blanca Cruz MD Work Phone: [facility] 06-11-2024 22:06-0400 SaO2% (BldA) [Mass fraction] 96 % Dr. Blanca Cruz MD Work Phone: [facility] 06-11-2024 22:06-0400 Systolic blood pressure 151 mm[Hg] Dr. Blanca Cruz MD Work Phone: [facility] 06-11-2024 19:16-0400 Body mass index (BMI) [Ratio] 29 kg/m2 Dr. Blanca Cruz MD Work Phone: [facility] 06-11-2024 19:16-0400 Body weight 67.[address] Blanca Cruz MD Work Phone: [facility] 06-11-2024 19:12-0400 Body height 152.[address] Blanca Cruz MD Work Phone: [facility] 06-07-2024 09:02-0400 Diastolic blood pressure 85 mm[Hg] Clint Diaz APRN-TRUCK LEASING MANAGER Work Phone: [facility] 06-07-2024 09:02-0400 Heart rate 83 /min Clint Diaz APRN-TRUCK LEASING MANAGER Work Phone: [facility] 06-07-2024 09:02-0400 Systolic blood pressure 191 mm[Hg] Clint Diaz APRN-TRUCK LEASING MANAGER Work Phone: [facility] 06-06-2024 14:07-0400 Body mass index (BMI) [Ratio] 26.9 kg/m2 Dr. Blanca Cruz MD Work Phone: [facility] 06-06-2024 14:07-0400 Body weight 66.[address] Blanca Cruz MD Work Phone: [facility] 06-06-2024 14:07-0400 Diastolic blood pressure 72 mm[Hg] Dr. Blanca Cruz MD Work Phone: [facility] 06-06-2024 14:07-0400 Heart rate 75 /min Dr. Blanca Cruz MD Work Phone: [facility] 06-06-2024 14:07-0400 Respiratory rate 16 /min Dr. Blanca Cruz MD Work Phone: [facility] 06-06-2024 14:07-0400 Systolic blood pressure 128 mm[Hg] Dr. Blanca Cruz MD Work Phone: [facility] 03-15-2024 11:02-0500 Body height 152.4 cm Tiffany Babin MBBS Work Phone: [facility] 03-15-2024 11:02-0500 Body mass index (BMI) [Ratio] 28.24 kg/m2 Eneidai Marar MBBS Work Phone: [facility] 03-15-2024 11:02-0500 Body weight 65.59 kg Eneidai Marar MBBS Work Phone: [facility] 03-15-2024 11:02-0500 Diastolic blood pressure 62 mm[Hg] Eneidai Marar MBBS Work Phone: [facility] 03-15-2024 11:02-0500 Heart rate 66 /min Eneidai Marar MBBS Work Phone: [facility] 03-15-2024 11:02-0500 SaO2% (BldA) [Mass fraction] 97 % Eneidai Marar MBBS Work Phone: [facility] 03-15-2024 11:02-0500 Systolic blood pressure 118 mm[Hg] Unni Marar MBBS Work Phone: [facility] 01-10-2024 10:30-0500 Body height 152.4 cm Esme Perez MD Work Phone: [facility] 01-10-2024 10:30-0500 Body mass index (BMI) [Ratio] 28.89 kg/m2 Esme Perez MD Work Phone: [facility] 01-10-2024 10:30-0500 Body temperature 97.2 [degF] Esme Perez MD Work Phone: [facility] 01-10-2024 10:30-0500 Body weight 67.1 kg Esme Perez MD Work Phone: [facility] 01-10-2024 10:30-0500 Diastolic blood pressure 61 mm[Hg] Esme Perez MD Work Phone: [facility] 01-10-2024 10:30-0500 Heart rate 65 /min Esme Perez MD Work Phone: [facility] 01-10-2024 10:30-0500 Respiratory rate 14 /min Esme Perez MD Work Phone: [facility] 01-10-2024 10:30-0500 SaO2% (BldA) [Mass fraction] 97 % Esme Perez MD Work Phone: [facility] 01-10-2024 10:30-0500 Systolic blood pressure 129 mm[Hg] Esme Perez MD Work Phone: [facility] 01-10-2024 10:13-0500 Body height 152.4 cm Clint BALES Work Phone: [facility] 01-10-2024 10:13-0500 Body mass index (BMI) [Ratio] 28.88 kg/m2 Clint Diaz FINANCIAL SERVICES MANAGER-TRUCK LEASING MANAGER Work Phone: [facility] 01-10-2024 10:13-0500 Body temperature 97.2 [degF] Clint Diaz FINANCIAL SERVICES MANAGER-TRUCK LEASING MANAGER Work Phone: [facility] 01-10-2024 10:13-0500 Body weight 67.09 kg Clint Diaz FINANCIAL SERVICES MANAGER-TRUCK LEASING MANAGER Work Phone: [facility] 01-10-2024 10:13-0500 Diastolic blood pressure 61 mm[Hg] Clint Diaz FINANCIAL SERVICES MANAGER-TRUCK LEASING MANAGER Work Phone: [facility] 01-10-2024 10:13-0500 Heart rate 65 /min Clint Diaz FINANCIAL SERVICES MANAGER-TRUCK LEASING MANAGER Work Phone: [facility] 01-10-2024 10:13-0500 Respiratory rate 14 /min Clint Diaz FINANCIAL SERVICES MANAGER-TRUCK LEASING MANAGER Work Phone: [facility] 01-10-2024 10:13-0500 SaO2% (BldA) [Mass fraction] 97 % Clint Diaz FINANCIAL SERVICES MANAGER-TRUCK LEASING MANAGER Work Phone: [facility] 01-10-2024 10:13-0500 Systolic blood pressure 129 mm[Hg] Clint Diaz FINANCIAL SERVICES MANAGER-TRUCK LEASING MANAGER Work Phone: [facility] 01-01-2024 10:33-0500 Body height 152.4 cm Doris Ohl FINANCIAL SERVICES MANAGER-TRUCK LEASING MANAGER Work Phone: [facility] 01-01-2024 10:33-0500 Diastolic blood pressure 74 mm[Hg] Doris Ohl FINANCIAL SERVICES MANAGER-TRUCK LEASING MANAGER Work Phone: [facility] 01-01-2024 10:33-0500 Heart rate 83 /min Doris Ohl FINANCIAL SERVICES MANAGER-TRUCK LEASING MANAGER Work Phone: [facility] 01-01-2024 10:33-0500 Systolic blood pressure 126 mm[Hg] Doris Maharaj FINANCIAL SERVICES MANAGER-TRUCK LEASING MANAGER Work Phone: [facility] 12-15-2023 12:30-0400 Diastolic blood pressure 72 mm[Hg] Fifi Concepcion MD Work Phone: [facility] 12-15-2023 12:30-0400 Heart rate 73 /min Fifi Concepcion MD Work Phone: [facility] 12-15-2023 12:30-0400 Respiratory rate 16 /min Fifi Concepcion MD Work Phone: [facility] 12-15-2023 12:30-0400 SaO2% (BldA) [Mass fraction] 96 % Fifi Concepcion MD Work Phone: [facility] 12-15-2023 12:30-0400 Systolic blood pressure 156 mm[Hg] Fifi Concepcion MD Work Phone: [facility] 12-15-2023 07:47-0400 Body height 152.4 cm Fifi Concepcion MD Work Phone: [facility] 12-15-2023 07:47-0400 Body mass index (BMI) [Ratio] 29.69 kg/m2 Fifi Concepcion MD Work Phone: [facility] 12-15-2023 07:47-0400 Body temperature 97.5 [degF] Fifi Concepcion MD Work Phone: [facility] 12-15-2023 07:47-0400 Body weight 68.95 kg Fifi Concepcion MD Work Phone: [facility] 12-08-2023 10:40-0400 Body height 152.4 cm Tiffany FLORES Work Phone: [facility] 12-08-2023 10:40-0400 Body mass index (BMI) [Ratio] 29.76 kg/m2 Unni Marar MBBS Work Phone: [facility] 12-08-2023 10:40-0400 Body weight 69.13 kg Unni Marar MBBS Work Phone: [facility] 12-08-2023 10:40-0400 Diastolic blood pressure 86 mm[Hg] Unni Marar MBBS Work Phone: [facility] Comment on above: Manual 12-08-2023 10:40-0400 Heart rate 81 /min Unni Marar MBBS Work Phone: [facility] 12-08-2023 10:40-0400 Respiratory rate 16 /min Unni Marar MBBS Work Phone: [facility] 12-08-2023 10:40-0400 SaO2% (BldA) [Mass fraction] 97 % Unni Marar MBBS Work Phone: [facility] 12-08-2023 10:40-0400 Systolic blood pressure 142 mm[Hg] Unni Marar MBBS Work Phone: [facility] Comment on above: Manual 11-06-2023 08:03-0400 Body height 152.4 cm Unni Marar MBBS Work Phone: [facility] 11-06-2023 08:03-0400 Body mass index (BMI) [Ratio] 30.08 kg/m2 Unni Marar MBBS Work Phone: [facility] 11-06-2023 08:03-0400 Body weight 69.85 kg Unni Marar MBBS Work Phone: [facility] 11-06-2023 08:03-0400 Diastolic blood pressure 58 mm[Hg] Unni Marar MBBS Work Phone: [facility] 11-06-2023 08:03-0400 Heart rate 79 /min Unni Marar MBBS Work Phone: [facility] 11-06-2023 08:03-0400 Systolic blood pressure 142 mm[Hg] Unni Marar MBBS Work Phone: [facility] 11-01-2023 12:44-0400 Body height 152.4 cm Unni Marar MBBS Work Phone: [facility] 11-01-2023 12:44-0400 Body mass index (BMI) [Ratio] 30.23 kg/m2 Unni Marar MBBS Work Phone: [facility] 11-01-2023 12:44-0400 Body weight 70.22 kg Unni Marar MBBS Work Phone: [facility] 11-01-2023 12:44-0400 Diastolic blood pressure 62 mm[Hg] Unni Marar MBBS Work Phone: [facility] 11-01-2023 12:44-0400 Heart rate 77 /min Unni Marar MBBS Work Phone: [facility] 11-01-2023 12:44-0400 Respiratory rate 16 /min Unni Marar MBBS Work Phone: [facility] 11-01-2023 12:44-0400 SaO2% (BldA) [Mass fraction] 98 % Unni Marar MBBS Work Phone: [facility] 11-01-2023 12:44-0400 Systolic blood pressure 137 mm[Hg] Unni Marar MBBS Work Phone: [facility] 08-23-2023 10:10-0400 Body height 154.5 cm Erwin David MD Work Phone: [facility] 08-23-2023 10:10-0400 Body mass index (BMI) [Ratio] 29.24 kg/m2 Erwin David MD Work Phone: 5(620)922-508263 [place] [address] 08-23-2023 10:10-0400 Body temperature 97.3 [degF] Erwin David MD Work Phone: 7(959)976-074463 [place] [address] 08-23-2023 10:10-0400 Body weight 69.81 kg Erwin David MD Work Phone: 6(080)158-969363 [place] [address] 08-23-2023 10:10-0400 Diastolic blood pressure 65 mm[Hg] Erwin David MD Work Phone: 8(567)937-600463 [place] [address] 08-23-2023 10:10-0400 Heart rate 63 /min Erwin David MD Work Phone: 6(668)987-350563 [place] [address] 08-23-2023 10:10-0400 Respiratory rate 16 /min Erwin David MD Work Phone: 9(463)600-852263 [place] [address] 08-23-2023 10:10-0400 SaO2% (BldA) [Mass fraction] 95 % Erwin David MD Work Phone: 6(874)126-336063 [place] [address] 08-23-2023 10:10-0400 Systolic blood pressure 142 mm[Hg] Erwin David MD Work Phone: 0(563)751-605663 [place] [address] 08-15-2023 11:22-0400 Body temperature 98.2 [degF] Tawana Deluca MD Work Phone: 6(049)266-999353 [place] [address] 08-15-2023 11:22-0400 Diastolic blood pressure 66 mm[Hg] Tawana Deluca MD Work Phone: 7(047)585-025553 [place] [address] 08-15-2023 11:22-0400 Heart rate 75 /min Tawana Deluca MD Work Phone: 7(630)518-505082 [place] [address] [facility] 08-15-2023 11:22-0400 Respiratory rate 16 /min Tawana Deluca MD Work Phone: [facility] 08-15-2023 11:22-0400 SaO2% (BldA) [Mass fraction] 91 % Tawana Deluca MD Work Phone: [facility] 08-15-2023 11:22-0400 Systolic blood pressure 150 mm[Hg] Tawana Deluca MD Work Phone: [facility] 08-12-2023 04:00-0400 Body height 154.5 cm Tawana Deluca MD Work Phone: [facility] 08-12-2023 04:00-0400 Body mass index (BMI) [Ratio] 29.45 kg/m2 Tawana Deluca MD Work Phone: [facility] 08-12-2023 04:00-0400 Body weight 70.31 kg Tawana Deluca MD Work Phone: [facility] 08-12-2023 00:16-0400 Body temperature 98.2 [degF] Marcellus Bishop MD, PhD Work Phone: [facility] 08-12-2023 00:16-0400 Diastolic blood pressure 88 mm[Hg] Marcellus Bishop MD, PhD Work Phone: [facility] 08-12-2023 00:16-0400 Heart rate 73 /min Marcellus Bishop MD, PhD Work Phone: [facility] 08-12-2023 00:16-0400 Systolic blood pressure 167 mm[Hg] Marcellus Bishop MD, PhD Work Phone: [facility] 08-11-2023 21:08-0400 Respiratory rate 18 /min Marcellus Bishop MD, PhD Work Phone: [facility] 08-11-2023 21:08-0400 SaO2% (BldA) [Mass fraction] 98 % Marcellus Bishop MD, PhD Work Phone: [facility] 06-30-2023 12:54-0400 Body height 154.9 cm Erwin David MD Work Phone: [facility] 06-30-2023 12:54-0400 Body mass index (BMI) [Ratio] 29.93 kg/m2 Erwin David MD Work Phone: 3(687)015-878563 [place] [address] 06-30-2023 12:54-0400 Body temperature 97.39 [degF] Erwin David MD Work Phone: 8(989)325-578863 [place] [address] 06-30-2023 12:54-0400 Body weight 71.85 kg Erwin David MD Work Phone: 5(319)417-975163 [place] [address] 06-30-2023 12:54-0400 Diastolic blood pressure 58 mm[Hg] Erwin David MD Work Phone: 5(332)332-434763 [place] [address] 06-30-2023 12:54-0400 Heart rate 72 /min Erwin David MD Work Phone: 9(622)185-323233 [address] 06-30-2023 12:54-0400 Respiratory rate 18 /min Erwin David MD Work Phone: 8(423)153-843863 [place] [address] 06-30-2023 12:54-0400 SaO2% (BldA) [Mass fraction] 95 % Erwin David MD Work Phone: 1(368)212-306233 [address] 06-30-2023 12:54-0400 Systolic blood pressure 109 mm[Hg] Erwin David MD Work Phone: 0(453)748-317363 [place] [address] 06-06-2023 13:16-0400 Body weight 72.3 kg Eric Rincon MD Work Phone: [facility] 06-06-2023 13:16-0400 Diastolic blood pressure 80 mm[Hg] Eric Rincon MD Work Phone: [facility] 06-06-2023 13:16-0400 Heart rate 64 /min Eric Rincon MD Work Phone: [facility] 06-06-2023 13:16-0400 Respiratory rate 16 /min Eric Rincon MD Work Phone: [facility] 06-06-2023 13:16-0400 SaO2% (BldA) [Mass fraction] 94 % Eric Rincon MD Work Phone: [facility] 06-06-2023 13:16-0400 Systolic blood pressure 119 mm[Hg] Eric Rincon MD Work Phone: [facility] 04-25-2023 13:00-0400 Body weight 72.4 kg Eric Rincon MD Work Phone: [facility] 04-25-2023 13:00-0400 Diastolic blood pressure 55 mm[Hg] Eric Rincon MD Work Phone: [facility] 04-25-2023 13:00-0400 Heart rate 62 /min Eric Rincon MD Work Phone: [facility] 04-25-2023 13:00-0400 Respiratory rate 16 /min Eric Rincon MD Work Phone: [facility] 04-25-2023 13:00-0400 SaO2% (BldA) [Mass fraction] 97 % Eric Rincon MD Work Phone: [facility] 04-25-2023 13:00-0400 Systolic blood pressure 104 mm[Hg] Eric Rincon MD Work Phone: [facility] 04-13-2023 14:24-0500 Body height 157.[address] Blanca rCuz Work Phone: [facility] 04-13-2023 14:24-0500 Body mass index (BMI) [Ratio] 28.7 kg/m2 Dr. Blanca Cruz Work Phone: [facility] 04-13-2023 14:24-0500 Body temperature 97.3 [degF] Dr. Blanca Cruz Work Phone: [facility] 04-13-2023 14:24-0500 Body weight 71.[address] Blanca Cruz Work Phone: [facility] 04-13-2023 14:24-0500 Diastolic blood pressure 84 mm[Hg] Dr. Blanca Cruz Work Phone: [facility] 04-13-2023 14:24-0500 Heart rate 71 /min Dr. Blanca Cruz Work Phone: [facility] 04-13-2023 14:24-0500 Respiratory rate 18 /min Dr. Blanca Cruz Work Phone: [facility] 04-13-2023 14:24-0500 SaO2% (BldA) [Mass fraction] 98 % Dr. Blanca Cruz Work Phone: [facility] 04-13-2023 14:24-0500 Systolic blood pressure 134 mm[Hg] Dr. Blanca Cruz Work Phone: [facility] 03-31-2023 13:00-0500 Diastolic blood pressure 84 mm[Hg] Britany Buck PAC Work Phone: [facility] Comment on above: manual 03-31-2023 13:00-0500 Systolic blood pressure 168 mm[Hg] Britany Buck PAC Work Phone: [facility] Comment on above: manual 03-31-2023 11:49-0500 Body height 154.9 cm Britany Buck PAC Work Phone: [facility] 03-31-2023 11:49-0500 Body mass index (BMI) [Ratio] 30.04 kg/m2 Britany Buck PAC Work Phone: [facility] 03-31-2023 11:49-0500 Body temperature 97.2 [degF] Britany Buck PAC Work Phone: [facility] 03-31-2023 11:49-0500 Body weight 72.12 kg Britany Buck PAC Work Phone: 9(491)181-974233 [address] 03-31-2023 11:49-0500 Heart rate 61 /min Britany Buck PAC Work Phone: 3(030)807-616933 [address] 03-31-2023 11:49-0500 Respiratory rate 12 /min Britany Buck PAC Work Phone: [facility] 03-31-2023 11:49-0500 SaO2% (BldA) [Mass fraction] 96 % Britany Buck PAC Work Phone: 3(059)098-412263 [place] [address] 03-24-2023 14:56-0500 Diastolic blood pressure 65 mm[Hg] Britany Buck PAC Work Phone: [facility] 03-24-2023 14:56-0500 Systolic blood pressure 149 mm[Hg] Britany Buck PAC Work Phone: [facility] 03-10-2023 13:36-0500 Body temperature 96 [degF] Dr. Blanca Cruz Work Phone: [facility] 03-10-2023 13:36-0500 Diastolic blood pressure 55 mm[Hg] Dr. Blanca Cruz Work Phone: [facility] 03-10-2023 13:36-0500 Heart rate 71 /min Dr. Blanca Cruz Work Phone: [facility] 03-10-2023 13:36-0500 Respiratory rate 16 /min Dr. Blanca Cruz Work Phone: [facility] 03-10-2023 13:36-0500 SaO2% (BldA) [Mass fraction] 99 % Dr. Blanca Cruz Work Phone: [facility] 03-10-2023 13:36-0500 Systolic blood pressure 115 mm[Hg] Dr. Blanca Cruz Work Phone: [facility] 01-12-2023 14:23-0500 Body mass index (BMI) [Ratio] 28.8 kg/m2 Dr. Blanca Cruz Work Phone: [facility] 01-12-2023 14:23-0500 Body temperature 97.7 [degF] Dr. Blanca Cruz Work Phone: [facility] 01-12-2023 14:23-0500 Body weight 71.[address] Blanca Cruz Work Phone: [facility] 01-12-2023 14:23-0500 Diastolic blood pressure 88 mm[Hg] Dr. Blanca Cruz Work Phone: 1(678)345-139307 [place] [address] 01-12-2023 14:23-0500 Heart rate 54 /min Dr. Blanca Cruz Work Phone: [facility] 01-12-2023 14:23-0500 Respiratory rate 16 /min Dr. Blanca Cruz Work Phone: [facility] 01-12-2023 14:23-0500 SaO2% (BldA) [Mass fraction] 97 % Dr. Blanca Cruz Work Phone: [facility] 01-12-2023 14:23-0500 Systolic blood pressure 151 mm[Hg] Dr. Blanca Cruz Work Phone: [facility] 01-10-2023 09:57-0500 Body mass index (BMI) [Ratio] 28.9 kg/m2 Dr. Blanca Cruz Work Phone: [facility] 01-10-2023 09:57-0500 Body weight 71.[address] Blanca Cruz Work Phone: [facility] 01-10-2023 09:57-0500 Diastolic blood pressure 72 mm[Hg] Dr. Blanca Cruz Work Phone: [facility] 01-10-2023 09:57-0500 Heart rate 77 /min Dr. Blanca Cruz Work Phone: [facility] 01-10-2023 09:57-0500 Respiratory rate 16 /min Dr. Blanca Cruz Work Phone: [facility] 01-10-2023 09:57-0500 Systolic blood pressure 125 mm[Hg] Dr. Blanca Cruz Work Phone: [facility] 01-04-2023 12:02-0500 Body height 157.5 cm Esme Perez MD Work Phone: [facility] 01-04-2023 12:02-0500 Body mass index (BMI) [Ratio] 28.53 kg/m2 Esme Perez MD Work Phone: [facility] 01-04-2023 12:02-0500 Body temperature 97.2 [degF] Esme Perez MD Work Phone: [facility] 01-04-2023 12:02-0500 Body weight 70.76 kg Esme Perez MD Work Phone: [facility] 01-04-2023 12:02-0500 Diastolic blood pressure 90 mm[Hg] Esme Perez MD Work Phone: [facility] 01-04-2023 12:02-0500 Heart rate 78 /min Esme Perez MD Work Phone: [facility] 01-04-2023 12:02-0500 Respiratory rate 16 /min Esme Perez MD Work Phone: [facility] 01-04-2023 12:02-0500 SaO2% (BldA) [Mass fraction] 96 % Esme Perez MD Work Phone: [facility] 01-04-2023 12:02-0500 Systolic blood pressure 147 mm[Hg] Esme Perez MD Work Phone: [facility] 10-07-2022 12:41-0400 Body height 157.5 cm Erwin David MD Work Phone: [facility] 10-07-2022 12:41-0400 Body mass index (BMI) [Ratio] 29.46 kg/m2 Erwin David MD Work Phone: [facility] 10-07-2022 12:41-0400 Body temperature 97.9 [degF] Erwin David MD Work Phone: [facility] 10-07-2022 12:41-0400 Body weight 73.07 kg Erwin David MD Work Phone: [facility] 10-07-2022 12:41-0400 Diastolic blood pressure 68 mm[Hg] Erwin David MD Work Phone: [facility] 10-07-2022 12:41-0400 Heart rate 77 /min Erwin David MD Work Phone: [facility] 10-07-2022 12:41-0400 Respiratory rate 16 /min Erwin David MD Work Phone: [facility] 10-07-2022 12:41-0400 SaO2% (BldA) [Mass fraction] 96 % Erwin David MD Work Phone: [facility] 10-07-2022 12:41-0400 Systolic blood pressure 145 mm[Hg] Erwin David MD Work Phone: [facility] 09-08-2022 10:04-0400 Diastolic blood pressure 73 mm[Hg] Britany Jane PAC Work Phone: [facility] 09-08-2022 10:04-0400 Heart rate 59 /min Britany Jane PAC Work Phone: [facility] 09-08-2022 10:04-0400 Systolic blood pressure 184 mm[Hg] Britany Jane PAC Work Phone: [facility] 08-26-2022 11:29-0400 Body mass index (BMI) [Ratio] 29.7 kg/m2 Dr. Blanca Cruz Work Phone: [facility] 07-16-2022 14:17-0400 Respiratory rate 18 /min Dr. Blanca Cruz Work Phone: [facility] 07-16-2022 12:06-0400 Body mass index (BMI) [Ratio] 33 kg/m2 Dr. Blanca Cruz Work Phone: [facility] 07-16-2022 12:06-0400 Body weight 81.[address] Blanca Cruz Work Phone: [facility] 07-16-2022 09:40-0400 Body height 157.[address] Blanca Cruz Work Phone: [facility] 07-16-2022 09:40-0400 Body temperature 96.9 [degF] Dr. Blanca Cruz Work Phone: [facility] 07-16-2022 09:40-0400 Diastolic blood pressure 66 mm[Hg] Dr. Blanca rCuz Work Phone: [facility] 07-16-2022 09:40-0400 Heart rate 80 /min Dr. Blanca Cruz Work Phone: [facility] 07-16-2022 09:40-0400 SaO2% (BldA) [Mass fraction] 99 % Dr. Blanca Cruz Work Phone: [facility] 07-16-2022 09:40-0400 Systolic blood pressure 172 mm[Hg] Dr. Blanca Cruz Work Phone: [facility] 06-30-2022 10:38-0400 Body mass index (BMI) [Ratio] 29.4 kg/m2 Dr. Blanca Cruz Work Phone: [facility] 06-30-2022 10:38-0400 Body weight 73.[address] Blanca Cruz Work Phone: [facility] 06-30-2022 09:58-0400 Body temperature 98.2 [degF] Dr. Blanca Cruz Work Phone: [facility] 06-30-2022 09:58-0400 Diastolic blood pressure 70 mm[Hg] Dr. Blanca Cruz Work Phone: [facility] 06-30-2022 09:58-0400 Heart rate 59 /min Dr. Blanca Cruz Work Phone: [facility] 06-30-2022 09:58-0400 Respiratory rate 16 /min Dr. Blanca Cruz Work Phone: [facility] 06-30-2022 09:58-0400 SaO2% (BldA) [Mass fraction] 98 % Dr. Blanca Cruz Work Phone: [facility] 06-30-2022 09:58-0400 Systolic blood pressure 115 mm[Hg] Dr. Blanca Cruz Work Phone: [facility] 06-21-2022 08:58-0400 Body mass index (BMI) [Ratio] 29.4 kg/m2 Dr. Blanca Cruz Work Phone: [facility] 06-21-2022 08:58-0400 Body weight 73.[address] Blanca Cruz Work Phone: [facility] 06-21-2022 08:58-0400 Diastolic blood pressure 76 mm[Hg] Dr. Blanca Cruz Work Phone: [facility] 06-21-2022 08:58-0400 Heart rate 90 /min Dr. Blanca Cruz Work Phone: [facility] 06-21-2022 08:58-0400 Respiratory rate 16 /min Dr. Blanca Cruz Work Phone: [facility] 06-21-2022 08:58-0400 Systolic blood pressure 138 mm[Hg] Dr. Blanca Cruz Work Phone: [facility] 06-02-2022 09:46-0400 Body temperature 97 [degF] Dr. Blanca Cruz Work Phone: [facility] 06-02-2022 09:46-0400 Diastolic blood pressure 80 mm[Hg] Dr. Blanca Cruz Work Phone: [facility] 06-02-2022 09:46-0400 Heart rate 72 /min Dr. Blanca Cruz Work Phone: [facility] 06-02-2022 09:46-0400 Respiratory rate 16 /min Dr. Blanca Cruz Work Phone: [facility] 06-02-2022 09:46-0400 SaO2% (BldA) [Mass fraction] 95 % Dr. Blanca Cruz Work Phone: [facility] 06-02-2022 09:46-0400 Systolic blood pressure 134 mm[Hg] Dr. Blanca Cruz Work Phone: [facility] 05-05-2022 09:19-0400 Body height 157.[address] Blanca Cruz Work Phone: [facility] 05-05-2022 09:19-0400 Body mass index (BMI) [Ratio] 30 kg/m2 Dr. Blanca Cruz Work Phone: [facility] 05-05-2022 09:19-0400 Body weight 74.[address] Blanca Cruz Work Phone: [facility] 05-05-2022 08:57-0400 Body mass index (BMI) [Ratio] 30 kg/m2 Dr. Blanca Cruz Work Phone: [facility] 05-05-2022 08:57-0400 Body temperature 98.1 [degF] Dr. Blanca Cruz Work Phone: [facility] 05-05-2022 08:57-0400 Body weight 74.[address] Blanca Cruz Work Phone: [facility] 05-05-2022 08:57-0400 Diastolic blood pressure 84 mm[Hg] Dr. Blanca Cruz Work Phone: [facility] 05-05-2022 08:57-0400 Heart rate 65 /min Dr. Blanca Cruz Work Phone: [facility] 05-05-2022 08:57-0400 Respiratory rate 18 /min Dr. Blanca Cruz Work Phone: [facility] 05-05-2022 08:57-0400 SaO2% (BldA) [Mass fraction] 94 % Dr. Blanca Cruz Work Phone: [facility] 05-05-2022 08:57-0400 Systolic blood pressure 174 mm[Hg] Dr. Blanca Cruz Work Phone: [facility] 04-07-2022 09:50-0500 Body mass index (BMI) [Ratio] 29.6 kg/m2 Dr. Blanca Cruz Work Phone: [facility] 04-07-2022 09:50-0500 Body temperature 97.8 [degF] Dr. Blanca Cruz Work Phone: [facility] 04-07-2022 09:50-0500 Body weight 73.[address] Blanca Cruz Work Phone: [facility] 04-07-2022 09:50-0500 Diastolic blood pressure 62 mm[Hg] Dr. Blanca Cruz Work Phone: [facility] 04-07-2022 09:50-0500 Heart rate 80 /min Dr. Blanca Cruz Work Phone: [facility] 04-07-2022 09:50-0500 Respiratory rate 16 /min Dr. Blanca Cruz Work Phone: [facility] 04-07-2022 09:50-0500 SaO2% (BldA) [Mass fraction] 92 % Dr. Blanca Cruz Work Phone: [facility] 04-07-2022 09:50-0500 Systolic blood pressure 125 mm[Hg] Dr. Blanca Cruz Work Phone: [facility] 03-09-2022 13:51-0500 Body mass index (BMI) [Ratio] 29.5 kg/m2 Dr. Blanca Cruz Work Phone: [facility] 03-09-2022 13:51-0500 Body temperature 97.5 [degF] Dr. Blanca Cruz Work Phone: [facility] 03-09-2022 13:51-0500 Body weight 73.[address] Blanca Cruz Work Phone: [facility] 03-09-2022 13:51-0500 Diastolic blood pressure 73 mm[Hg] Dr. Blanca Cruz Work Phone: [facility] 03-09-2022 13:51-0500 Heart rate 65 /min Dr. Blanca Cruz Work Phone: [facility] 03-09-2022 13:51-0500 Respiratory rate 16 /min Dr. Blanca Cruz Work Phone: [facility] 03-09-2022 13:51-0500 SaO2% (BldA) [Mass fraction] 95 % Dr. Blanca Cruz Work Phone: [facility] 03-09-2022 13:51-0500 Systolic blood pressure 136 mm[Hg] Dr. Blanca Cruz Work Phone: [facility] 02-18-2022 08:34-0500 Body height 157.5 cm Erwin David MD Work Phone: 8(639)416-245733 [address] 02-18-2022 08:34-0500 Body mass index (BMI) [Ratio] 29.31 kg/m2 Erwin David MD Work Phone: 9(328)284-228963 [place] [address] 02-18-2022 08:34-0500 Body temperature 97.9 [degF] Erwin David MD Work Phone: 1(632)638-346163 [place] [address] 02-18-2022 08:34-0500 Body weight 72.71 kg Erwin David MD Work Phone: 7(832)170-716963 [place] [address] 02-18-2022 08:34-0500 Diastolic blood pressure 73 mm[Hg] Erwin David MD Work Phone: 5(730)880-489563 [place] [address] 02-18-2022 08:34-0500 Heart rate 60 /min Erwin David MD Work Phone: 3(928)727-779663 [place] [address] 02-18-2022 08:34-0500 Respiratory rate 16 /min Erwin David MD Work Phone: 1(581)266-772163 [place] [address] 02-18-2022 08:34-0500 Systolic blood pressure 152 mm[Hg] Erwin David MD Work Phone: 4(213)402-236663 [place] [address] 02-08-2022 09:49-0500 Body mass index (BMI) [Ratio] 29.3 kg/m2 Dr. Blanca Cruz Work Phone: [facility] 02-08-2022 09:49-0500 Body temperature 97.1 [degF] Dr. Blanca Cruz Work Phone: [facility] 02-08-2022 09:49-0500 Body weight 72.[address] Blanca Cruz Work Phone: [facility] 02-08-2022 09:49-0500 Diastolic blood pressure 73 mm[Hg] Dr. Blanca Cruz Work Phone: [facility] 02-08-2022 09:49-0500 Heart rate 69 /min Dr. Blanca Cruz Work Phone: [facility] 02-08-2022 09:49-0500 Respiratory rate 16 /min Dr. Blanca Cruz Work Phone: [facility] 02-08-2022 09:49-0500 SaO2% (BldA) [Mass fraction] 97 % Dr. Blanca Cruz Work Phone: [facility] 02-08-2022 09:49-0500 Systolic blood pressure 149 mm[Hg] Dr. Blanca Cruz Work Phone: [facility] 01-11-2022 13:29-0500 Body mass index (BMI) [Ratio] 29.7 kg/m2 Dr. Blanca Cruz Work Phone: [facility] 01-11-2022 13:29-0500 Body temperature 97.8 [degF] Dr. Blanca Cruz Work Phone: [facility] 01-11-2022 13:29-0500 Body weight 73.[address] Blanca Cruz Work Phone: [facility] 01-11-2022 13:29-0500 Diastolic blood pressure 54 mm[Hg] Dr. Blanca Cruz Work Phone: [facility] 01-11-2022 13:29-0500 Heart rate 68 /min Dr. Blanca Cruz Work Phone: [facility] 01-11-2022 13:29-0500 Respiratory rate 16 /min Dr. Blanca Cruz Work Phone: [facility] 01-11-2022 13:29-0500 SaO2% (BldA) [Mass fraction] 95 % Dr. Blanca Cruz Work Phone: [facility] 01-11-2022 13:29-0500 Systolic blood pressure 137 mm[Hg] Dr. Blanca Cruz Work Phone: [facility] 10-26-2021 09:16-0400 Body height 157.[address] Blanca Cruz Work Phone: [facility] Work Phone: 10-26-2021 09:16-0400 Body mass index (BMI) [Ratio] 29.1 kg/m2 Dr. Blanca Cruz Work [facility] [facility] Work Phone: 10-26-2021 09:16-0400 Body weight 72.[address] Blanca Cruz Work Phone: [facility] Work Phone: 10-26-2021 08:20-0400 Body mass index (BMI) [Ratio] 29.1 kg/m2 Dr. Blanca Cruz Work Phone: [facility] Work Phone: 10-26-2021 08:20-0400 Body temperature 97.5 [degF] Dr. Blanca Cruz Work Phone: [facility] Work Phone: 10-26-2021 08:20-0400 Body weight 72.[address] Blanca Cruz Work Phone: [facility] Work Phone: 10-26-2021 08:20-0400 Diastolic blood pressure 73 mm[Hg] Dr. Blanca Cruz Work Phone: [facility] Work Phone: 10-26-2021 08:20-0400 Heart rate 70 /min Dr. Blanca Cruz Work Phone: [facility] Work Phone: 10-26-2021 08:20-0400 Respiratory rate 16 /min Dr. Blanca Cruz Work Phone: [facility] Work Phone: 10-26-2021 08:20-0400 SaO2% (BldA) [Mass fraction] 97 % Dr. Blanca Cruz Work Phone: [facility] Work Phone: 10-26-2021 08:20-0400 Systolic blood pressure 111 mm[Hg] Dr. Blanca Cruz Work Phone: [facility] Work Phone: 09-28-2021 10:31-0400 Body mass index (BMI) [Ratio] 29.5 kg/m2 Dr. Blanca Cruz Work Phone: [facility] Work Phone: 09-28-2021 10:31-0400 Body temperature 97.4 [degF] Dr. Blanca Cruz Work Phone: [facility] Work Phone: 09-28-2021 10:31-0400 Body weight 73.[address] Blanca Cruz Work Phone: [facility] Work Phone: 09-28-2021 10:31-0400 Diastolic blood pressure 71 mm[Hg] Dr. Blanca Cruz Work Phone: [facility] Work Phone: 09-28-2021 10:31-0400 Heart rate 62 /min Dr. Blanca Cruz Work Phone: [facility] Work Phone: 09-28-2021 10:31-0400 Respiratory rate 16 /min Dr. Blanca Cruz Work Phone: [facility] Work Phone: 09-28-2021 10:31-0400 SaO2% (BldA) [Mass fraction] 98 % Dr. Blanca Cruz Work Phone: [facility] Work Phone: 09-28-2021 10:31-0400 Systolic blood pressure 118 mm[Hg] Dr. Blanca Cruz Work Phone: [facility] Work Phone: 08-31-2021 10:49-0400 Body mass index (BMI) [Ratio] 29.1 kg/m2 Dr. Blanca Cruz Work Phone: [facility] Work Phone: 08-31-2021 10:49-0400 Body temperature 98.3 [degF] Dr. Blanca Cruz Work Phone: [facility] Work Phone: 08-31-2021 10:49-0400 Body weight 72.[address] Blanca Cruz Work Phone: [facility] Work Phone: 08-31-2021 10:49-0400 Diastolic blood pressure 71 mm[Hg] Dr. Blanca Cruz Work Phone: [facility] Work Phone: 08-31-2021 10:49-0400 Heart rate 64 /min Dr. Blanca Cruz Work Phone: [facility] Work Phone: 08-31-2021 10:49-0400 Respiratory rate 15 /min Dr. Blanca Cruz Work Phone: [facility] Work Phone: 08-31-2021 10:49-0400 SaO2% (BldA) [Mass fraction] 98 % Dr. Blanca Cruz Work Phone: [facility] Work Phone: 08-31-2021 10:49-0400 Systolic blood pressure 116 mm[Hg] Dr. Blanca Cruz Work Phone: [facility] Work Phone: 08-27-2021 12:33-0400 Body height 157.5 cm Erwin David MD Work Phone: [facility] 08-27-2021 12:33-0400 Body mass index (BMI) [Ratio] 29.1 kg/m2 Erwin David MD Work Phone: [facility] 08-27-2021 12:33-0400 Body temperature 97.7 [degF] Erwin David MD Work Phone: [facility] 08-27-2021 12:33-0400 Body weight 72.17 kg Erwin David MD Work Phone: 0(306)462-380363 [place] [address] 08-27-2021 12:33-0400 Diastolic blood pressure 71 mm[Hg] Erwin David MD Work Phone: 5(748)113-350063 [place] [address] 08-27-2021 12:33-0400 Heart rate 59 /min Erwin David MD Work Phone: 3(663)[phone] [place] [address] 08-27-2021 12:33-0400 Respiratory rate 18 /min Erwin David MD Work Phone: 0(742)432-656263 [place] [address] 08-27-2021 12:33-0400 SaO2% (BldA) [Mass fraction] 99 % Erwin David MD Work Phone: 2(148)285-124563 [place] [address] 08-27-2021 12:33-0400 Systolic blood pressure 161 mm[Hg] Erwin David MD Work Phone: [facility] 08-03-2021 10:51-0400 Body mass index (BMI) [Ratio] 29 kg/m2 Dr. Blanca Cruz Work Phone: [facility] Work Phone: 08-03-2021 10:51-0400 Body temperature 97.7 [degF] Dr. Blanca Cruz Work Phone: [facility] Work Phone: 08-03-2021 10:51-0400 Body weight 72.[address] Blanca Cruz Work Phone: [facility] Work Phone: 08-03-2021 10:51-0400 Diastolic blood pressure 72 mm[Hg] Dr. Blanca Cruz Work Phone: [facility] Work Phone: 08-03-2021 10:51-0400 Heart rate 60 /min Dr. Blanca Cruz Work Phone: [facility] Work Phone: 08-03-2021 10:51-0400 Respiratory rate 18 /min Dr. Blanca Cruz Work Phone: [facility] Work Phone: 08-03-2021 10:51-0400 SaO2% (BldA) [Mass fraction] 98 % Dr. Blanca Cruz Work Phone: [facility] Work Phone: 08-03-2021 10:51-0400 Systolic blood pressure 127 mm[Hg] Dr. Blanca Cruz Work Phone: [facility] Work Phone: 07-06-2021 13:52-0400 Body temperature 96.2 [degF] Dr. Blanca Cruz Work Phone: [facility] 07-06-2021 13:52-0400 Diastolic blood pressure 62 mm[Hg] Dr. Blanca Cruz Work Phone: [facility] 07-06-2021 13:52-0400 Heart rate 60 /min Dr. Blanca Cruz Work Phone: [facility] 07-06-2021 13:52-0400 Respiratory rate 12 /min Dr. Blanca Cruz Work Phone: [facility] 07-06-2021 13:52-0400 SaO2% (BldA) [Mass fraction] 98 % Dr. Blanca Cruz Work Phone: [facility] 07-06-2021 13:52-0400 Systolic blood pressure 124 mm[Hg] Dr. Blanca Cruz Work Phone: [facility] 06-29-2021 10:38-0400 Body height 157.5 cm Britany Buck PA-C Work Phone: [facility] 06-29-2021 10:38-0400 Body mass index (BMI) [Ratio] 27.83 kg/m2 Britany Buck PA-C Work Phone: 9(327)353-206833 [address] 06-29-2021 10:38-0400 Body temperature 98.01 [degF] Britany Buck PA-C Work Phone: 3(434)[phone] [address] 06-29-2021 10:38-0400 Body weight 69.04 kg Britany Buck PA-C Work Phone: 3(017)429-793033 [address] 06-29-2021 10:38-0400 Diastolic blood pressure 69 mm[Hg] Britany Buck PA-C Work Phone: 8(418)436-238033 [address] 06-29-2021 10:38-0400 Heart rate 78 /min Britany Buck PA-C Work Phone: [facility] 06-29-2021 10:38-0400 Respiratory rate 16 /min Britany Buck PA-C Work Phone: [facility] 06-29-2021 10:38-0400 SaO2% (BldA) [Mass fraction] 97 % Britany Buck PA-C Work Phone: [facility] 06-29-2021 10:38-0400 Systolic blood pressure 148 mm[Hg] Britany Buck PA-C Work Phone: [facility] 06-19-2021 14:23-0400 Diastolic blood pressure 68 mm[Hg] Dr. Blanca Cruz Work Phone: [facility] Work Phone: 06-19-2021 14:23-0400 Heart rate 80 /min Dr. Blanca Cruz Work Phone: [facility] Work Phone: 06-19-2021 14:23-0400 Respiratory rate 18 /min Dr. Blanca Cruz Work Phone: [facility] Work Phone: 06-19-2021 14:23-0400 SaO2% (BldA) [Mass fraction] 96 % Dr. Blanca Cruz Work Phone: [facility] Work Phone: 06-19-2021 14:23-0400 Systolic blood pressure 140 mm[Hg] Dr. Blanca Cruz Work Phone: [facility] Work Phone: 06-19-2021 11:18-0400 Body height 157.[address] Blanca Cruz Work Phone: [facility] Work Phone: 06-19-2021 11:18-0400 Body mass index (BMI) [Ratio] 27.8 kg/m2 Dr. Blanca Cruz Work Phone: [facility] Work Phone: 06-19-2021 11:18-0400 Body temperature 97.2 [degF] Dr. Blanca Cruz Work Phone: [facility] Work Phone: 06-19-2021 11:18-0400 Body weight 68.[address] Blanca Cruz Work Phone: [facility] Work Phone: 06-16-2021 13:21-0400 Body height 157.[address] Blanca Cruz Work Phone: [facility] Work Phone: 06-16-2021 13:21-0400 Body mass index (BMI) [Ratio] 27.8 kg/m2 Dr. Blanca Cruz Work Phone: [facility] Work Phone: 06-16-2021 13:21-0400 Body temperature 96.7 [degF] Dr. Blanca Cruz Work Phone: [facility] Work Phone: 06-16-2021 13:21-0400 Body weight 68.[address] Blanca Cruz Work Phone: [facility] Work Phone: 06-16-2021 13:21-0400 Diastolic blood pressure 95 mm[Hg] Dr. Blanca Cruz Work Phone: [facility] Work Phone: 06-16-2021 13:21-0400 Heart rate 91 /min Dr. Blanca Cruz Work Phone: [facility] Work Phone: 06-16-2021 13:21-0400 Respiratory rate 16 /min Dr. Blanca Cruz Work Phone: [facility] Work Phone: 06-16-2021 13:21-0400 SaO2% (BldA) [Mass fraction] 100 % Dr. Blanca Cruz Work Phone: [facility] Work Phone: 06-16-2021 13:21-0400 Systolic blood pressure 108 mm[Hg] Dr. Blanca Cruz Work Phone: [facility] Work Phone: 06-16-2021 09:42-0400 Body temperature 97.5 [degF] Humberto Rush MD Work Phone: [facility] 06-16-2021 09:42-0400 Diastolic blood pressure 58 mm[Hg] Humberto Rush MD Work Phone: [facility] 06-16-2021 09:42-0400 Heart rate 72 /min Humberto Rush MD Work Phone: [facility] 06-16-2021 09:42-0400 SaO2% (BldA) [Mass fraction] 96 % Humberto Rush MD Work Phone: [facility] 06-16-2021 09:42-0400 Systolic blood pressure 120 mm[Hg] Humberto Rush MD Work Phone: [facility] 06-08-2021 10:53-0400 Body temperature 97.8 [degF] Dr. Blanca Cruz Work Phone: [facility] Work Phone: 06-08-2021 10:53-0400 Diastolic blood pressure 78 mm[Hg] Dr. Blanca Cruz Work Phone: [facility] Work Phone: 06-08-2021 10:53-0400 Heart rate 62 /min Dr. Blanca Cruz Work Phone: [facility] Work Phone: 06-08-2021 10:53-0400 Respiratory rate 16 /min Dr. Blanca Cruz Work Phone: [facility] Work Phone: 06-08-2021 10:53-0400 SaO2% (BldA) [Mass fraction] 96 % Dr. Blanca Cruz Work Phone: [facility] Work Phone: 06-08-2021 10:53-0400 Systolic blood pressure 114 mm[Hg] Dr. Blanca Cruz Work Phone: [facility] Work Phone: 06-01-2021 06:05-0400 Body temperature 98.1 [degF] Juan A Alvarenga MD, PhD, MPH Work Phone: [facility] 06-01-2021 06:05-0400 Diastolic blood pressure 66 mm[Hg] Juan A Alvarenga MD, PhD, MPH Work Phone: [facility] 06-01-2021 06:05-0400 Heart rate 67 /min Juan A Alvarenga MD, PhD, MPH Work Phone: [facility] 06-01-2021 06:05-0400 Respiratory rate 18 /min Juan A Alvarenga MD, PhD, MPH Work Phone: [facility] 06-01-2021 06:05-0400 SaO2% (BldA) [Mass fraction] 98 % Juan A Alvarenga MD, PhD, MPH Work Phone: 8([phone])[phone] [address] 06-01-2021 06:05-0400 Systolic blood pressure 150 mm[Hg] Juan A Alvarenga MD, PhD, MPH Work Phone: [phone](911)[phone] [address] 05-31-2021 16:00-0400 Body height 157.5 cm Juan A Alvarenga MD, PhD, MPH Work Phone: 4(003)[phone] [address] 05-31-2021 16:00-0400 Body mass index (BMI) [Ratio] 29.26 kg/m2 Juan A Alvarenga MD, PhD, MPH Work Phone: [facility] 05-31-2021 16:00-0400 Body weight 72.58 kg Juan A Alvarenga MD, PhD, MPH Work Phone: [facility] 05-27-2021 12:40-0400 Body temperature 97.7 [degF] Dr. Blanca Cruz Work Phone: [facility] Work Phone: 05-27-2021 12:40-0400 Diastolic blood pressure 76 mm[Hg] Dr. Blanca Cruz Work Phone: [facility] Work Phone: 05-27-2021 12:40-0400 Heart rate 95 /min Dr. Blanca Cruz Work Phone: [facility] Work Phone: 05-27-2021 12:40-0400 Respiratory rate 16 /min Dr. Blanca Cruz Work Phone: [facility] Work Phone: 05-27-2021 12:40-0400 SaO2% (BldA) [Mass fraction] 99 % Dr. Blanca Cruz Work Phone: [facility] Work Phone: 05-27-2021 12:40-0400 Systolic blood pressure 128 mm[Hg] Dr. Blanca Cruz Work Phone: [facility] Work Phone: 05-21-2021 14:22-0400 Body mass index (BMI) [Ratio] 28.1 kg/m2 Dr. Blanca Cruz Work Phone: [facility] Work Phone: 05-21-2021 14:22-0400 Body weight 69.[address] Blanca Cruz Work Phone: [facility] Work Phone: 05-21-2021 14:22-0400 Diastolic blood pressure 65 mm[Hg] Dr. Blanca Cruz Work Phone: [facility] Work Phone: 05-21-2021 14:22-0400 Heart rate 80 /min Dr. Blanca Cruz Work Phone: [facility] Work Phone: 05-21-2021 14:22-0400 Respiratory rate 16 /min Dr. Blanca Cruz Work Phone: [facility] Work Phone: 05-21-2021 14:22-0400 SaO2% (BldA) [Mass fraction] 96 % Dr. Blanca Cruz Work Phone: [facility] Work Phone: 05-21-2021 14:22-0400 Systolic blood pressure 119 mm[Hg] Dr. Blanca Cruz Work Phone: [facility] Work Phone: 05-11-2021 11:19-0400 Body mass index (BMI) [Ratio] 28 kg/m2 Dr. Blanca Cruz Work Phone: [facility] Work Phone: 05-11-2021 11:19-0400 Body weight 69.[address] Blanca Cruz Work Phone: [facility] Work Phone: 05-11-2021 10:21-0400 Body mass index (BMI) [Ratio] 28 kg/m2 Dr. Blanca Cruz Work Phone: [facility] Work Phone: 05-11-2021 10:21-0400 Body temperature 97.1 [degF] Dr. Blanca Cruz Work Phone: [facility] Work Phone: 05-11-2021 10:21-0400 Body weight 69.[address] Blanca Cruz Work Phone: [facility] Work Phone: 05-11-2021 10:21-0400 Diastolic blood pressure 70 mm[Hg] Dr. Blanca Cruz Work Phone: [facility] Work Phone: 05-11-2021 10:21-0400 Heart rate 72 /min Dr. Blanca Cruz Work Phone: [facility] Work Phone: 05-11-2021 10:21-0400 Respiratory rate 15 /min Dr. Blanca Cruz Work Phone: [facility] Work Phone: 05-11-2021 10:21-0400 SaO2% (BldA) [Mass fraction] 98 % Dr. Blanca Cruz Work Phone: [facility] Work Phone: 05-11-2021 10:21-0400 Systolic blood pressure 111 mm[Hg] Dr. Blanca Cruz Work Phone: [facility] Work Phone: 04-13-2021 09:47-0500 Body mass index (BMI) [Ratio] 27.3 kg/m2 Dr. Blanca Cruz Work Phone: [facility] Work Phone: 04-13-2021 09:47-0500 Body temperature 97.2 [degF] Dr. Blanca Cruz Work Phone: [facility] Work Phone: 04-13-2021 09:47-0500 Body weight 67.[address] Blanca Cruz Work Phone: [facility] Work Phone: 04-13-2021 09:47-0500 Diastolic blood pressure 84 mm[Hg] Dr. Blanca Cruz Work Phone: [facility] Work Phone: 04-13-2021 09:47-0500 Heart rate 67 /min Dr. Blanca Cruz Work Phone: [facility] Work Phone: 04-13-2021 09:47-0500 Respiratory rate 16 /min Dr. Blanca Cruz Work Phone: [facility] Work Phone: 04-13-2021 09:47-0500 SaO2% (BldA) [Mass fraction] 97 % Dr. Blanca Cruz Work Phone: [facility] Work Phone: 04-13-2021 09:47-0500 Systolic blood pressure 134 mm[Hg] Dr. Blanca Cruz Work Phone: [facility] Work Phone: 03-17-2021 10:09-0500 Body temperature 97.1 [degF] Dr. Blanca Cruz Work Phone: [facility] Work Phone: 03-17-2021 10:09-0500 Diastolic blood pressure 62 mm[Hg] Dr. Blanca Cruz Work Phone: [facility] Work Phone: 03-17-2021 10:09-0500 Heart rate 58 /min Dr. Blanca Cruz Work Phone: [facility] Work Phone: 03-17-2021 10:09-0500 Respiratory rate 16 /min Dr. Blanca Cruz Work Phone: [facility] Work Phone: 03-17-2021 10:09-0500 SaO2% (BldA) [Mass fraction] 97 % Dr. Blanca Cruz Work Phone: [facility] Work Phone: 03-17-2021 10:09-0500 Systolic blood pressure 122 mm[Hg] Dr. Blanca Cruz Work Phone: [facility] Work Phone: 03-16-2021 13:08-0500 Body mass index (BMI) [Ratio] 27.6 kg/m2 Dr. Blanca Cruz Work Phone: [facility] Work Phone: 03-16-2021 13:08-0500 Body temperature 97.5 [degF] Dr. Blanca Cruz Work Phone: [facility] Work Phone: 03-16-2021 13:08-0500 Body weight 68.[address] Blanca Cruz Work Phone: [facility] Work Phone: 03-16-2021 13:08-0500 Diastolic blood pressure 80 mm[Hg] Dr. Blanca Cruz Work Phone: [facility] Work Phone: 03-16-2021 13:08-0500 Heart rate 77 /min Dr. Blanca Cruz Work Phone: [facility] Work Phone: 03-16-2021 13:08-0500 Respiratory rate 15 /min Dr. Blanca Cruz Work Phone: [facility] Work Phone: 03-16-2021 13:08-0500 SaO2% (BldA) [Mass fraction] 95 % Dr. Blanca Cruz Work Phone: [facility] Work Phone: 03-16-2021 13:08-0500 Systolic blood pressure 130 mm[Hg] Dr. Blanca Cruz Work Phone: [facility] Work Phone: 02-18-2021 13:18-0500 Body mass index (BMI) [Ratio] 28.2 kg/m2 Dr. Blanca Cruz Work Phone: [facility] Work Phone: 02-18-2021 13:18-0500 Body temperature 98.2 [degF] Dr. Blanca Cruz Work Phone: [facility] Work Phone: 02-18-2021 13:18-0500 Body weight 70.[address] Blanca Cruz Work Phone: [facility] Work Phone: 02-18-2021 13:18-0500 Diastolic blood pressure 73 mm[Hg] Dr. Blanca Cruz Work Phone: [facility] Work Phone: 02-18-2021 13:18-0500 Heart rate 69 /min Dr. Blanca Cruz Work Phone: [facility] Work Phone: 02-18-2021 13:18-0500 Respiratory rate 15 /min Dr. Blanca Cruz Work Phone: [facility] Work Phone: 02-18-2021 13:18-0500 SaO2% (BldA) [Mass fraction] 96 % Dr. Blanca Cruz Work Phone: [facility] Work Phone: 02-18-2021 13:18-0500 Systolic blood pressure 132 mm[Hg] Dr. Blanca Cruz Work Phone: [facility] Work Phone: Encounters Encounter Date Encounter Type Care Provider Facility Start: 12-14-2024 [facility] Facility :[facility] Start: 12-13-2024 ambulatory ERWIN Mondragon ility:[facility] Start: 12-13-2024 End: 12-13-2024 Subsequent hospital visit by physician [facility] Comment on above: Arrived Start: 12-13-2024 End: 12-13-2024 ambulatory Erwin David MD Work Phone: Division of Chemotherapy at [facility] Comment on above: Neuroendocrine cance r (Primary Dx) Start: 11-21-2024 End: 11-22-2024 Telephone encounter Erwin David MD Work Phone: Division of Medical Oncology Comment on above: Medication Request Start: 11-19-2024 End: 11-19-2024 ambulatory [facility] Facility:[facility] Start: 11-15-2024 ambulatory ERWIN Mondragon ility:[facility] Start: 11-12-2024 End: 11-13-2024 Telephone encounter Colette Rivera RN Division of Medical Oncology Comment on above: Lab Review Start: 11-12-2024 End: 11-12-2024 [facility] Facility:[facility] Start: 11-08-2024 ambulatory ERWIN Mondragon ility:[facility] Start: 11-08-2024 End: 11-08-2024 Office outpatient visit 40 minutes Erwin David MD Work Phone: Division of Medical Oncology Comment on above: Neuroendocrine tumor (Primary Dx) Start: 11-08-2024 End: 11-08-2024 Clinical Support Encounter Erwin David MD Work Phone: Clinical Lab [facility] 1 Comment on above: Neuroendocrine tumor Start: 10-23-2024 ambulatory ERWIN DAVID Fac ility:[facility] Start: 09-20-2024 End: 09-20-2024 Subsequent hospital visit by physician Erwin David MD Work Phone: Nuclear [facility] 1 Comment on above: Arrived Start: 09-20-2024 End: 09-20-2024 ambulatory Erwin David MD Work Phone: [facility] Comment on above: Neuroendocrine cance r (Primary Dx) Start: 09-18-2024 End: 09-18-2024 Office outpatient visit 25 minutes Tiffany FLORES Work Phone: [facility] Comment on above: Essential hypertensi on (Primary Dx); Paroxysmal atrial fibrillation; Coronary artery calcification; 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; Shortness of breath Start: 09-18-2024 ambulatory Tiffany Babin Facility:[facility] Start: 09-13-2024 ambulatory ERWIN DAVID Fac ility:[facility] Start: 09-06-2024 End: 09-06-2024 Office outpatient visit 25 minutes Clint BALES Work Phone: Division of Medical Oncology Comment on above: Neuroendocrine tumor (Primary Dx); Alopecia; Diarrhea, unspecified type Start: 09-06-2024 ambulatory ERWIN DVAID Fac ility:[facility] Start: 09-06-2024 End: 09-06-2024 Clinical Support Encounter Erwin David MD Work Phone: Clinical Lab [facility] 1 Comment on above: Neuroendocrine tumor ; Neuroendocrine cancer Start: 08-03-2024 ambulatory Dario Wellington Facility:[facility] Start: 07-26-2024 End: 07-26-2024 Subsequent hospital visit by physician [facility] on above: Ar[facility] Start: 07-26-2024 End: 07-26-2024 ambulatory Erwin David MD Work Phone: [facility] Comment on above: Neuroendocrine cance r (Primary Dx) Start: 07-19-2024 ambulatory ERWIN DAVID Fac ility:[facility] Start: 07-15-2024 End: 07-15-[address] Blanca Cruz MD Work Phone: -Laboratory Work Phone: Start: 07-15-2024 End: 07-15-[address] Blanca Cruz MD Work Phone: [facility] Work Phone: Start: 06-14-2024 End: 06-14-2024 Telephone encounter Colette Rivera RN Division of Medical Oncology Comment on above: Insurance Start: 06-14-2024 ambulatory ERWIN DAVID Fac ility:[facility] Start: 06-14-2024 End: 06-14-2024 Subsequent hospital visit by physician Erwin David MD Work Phone: Imaging [facility] Comment on above: Arrived Start: 06-12-2024 ambulatory ERWIN DAVID Fac ility:[facility] Start: 06-11-2024 End: 06-11-2024 Emergency department patient visit Dr. 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 Sara Garcia MD -Laboratory Work Phone: Start: 06-06-2024 End: 06-06-[address] Chava Rodriguez MD -[facility] Work Phone: Start: 06-06-2024 End: 06-06-2024 ambulatory Blanca S Jolliff Facility:[facility] Start: 06-06-2024 End: 06-06-2024 ambulatory Blanca S Jolliff Facility:[facility] Start: 05-23-2024 End: 05-24-2024 Telephone encounter Korin Bliss Division of Endocrinology Comment on above: Medication Request Start: 04-29-2024 End: 04-29-2024 Telephone encounter Erwin David MD Work Phone: Division of Medical Oncology Comment on above: Medication Managemen t Start: 04-01-2024 End: 04-01-[address] 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) Start: 03-19-2024 End: 03-19-2024 ambulatory Blanca S Jolliff Facility:[facility] Start: 03-15-2024 End: 03-15-2024 Office outpatient visit 25 minutes Tiffany FLORES Work Phone: [facility] Comment on above: Essential hypertensi on (Primary Dx); Paroxysmal atrial fibrillation; Premature atrial complexes; Coronary artery calcification Start: 03-15-2024 ambulatory Tiffany Babin Facility:[facility] Start: 03-07-2024 End: 03-07-2024 ambulatory Blanca S Jolliff [facility] [facility] Start: 02-27-2024 End: 02-27-2024 ambulatory Blanca S Jolliff Facility:[facility] Start: 02-26-2024 End: 02-26-2024 Telephone encounter Clint Diaz FINANCIAL SERVICES MANAGER-TRUCK LEASING MANAGER Work Phone: Division of Medical Oncology Comment on above: Appointment Start: 02-21-2024 End: 02-21-2024 Telephone encounter Ruby Mantilla RN Division of Medical Oncology Comment on above: Labs Only Start: 01-24-2024 End: 01-24-2024 ambulatory Blanca S Jolliff Facility:[facility] Start: 01-10-2024 End: 01-10-2024 Office outpatient visit 25 minutes Clint Diaz FINANCIAL SERVICES MANAGER-TRUCK LEASING MANAGER Work Phone: Division of Medical Oncology Comment on above: 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) Thyroid nodule (Prim carina Dx) Start: 01-10-2024 ambulatory BLANCA S JOLLIFF Facility: [facility] Start: 01-01-2024 End: 01-01-2024 Subsequent hospital visit by physician Doris Maharaj FINANCIAL SERVICES MANAGER-TRUCK LEASING MANAGER Work Phone: [facility] Comment on above: Arrived Start: 01-01-2024 ambulatory BLANCA S JOLLIFF Facility: [facility] Start: 01-01-2024 End: 01-01-2024 Clinical Support Encounter Erwin David MD Work Phone: Clinical Lab [facility] 1 Comment on above: 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 Start: 12-15-2023 End: 12-15-2023 Subsequent hospital visit by physician Ffii Concepcion MD Work Phone: [facility] Comment on above: Shortness of breath Start: 12-08-2023 End: 12-08-2023 Office outpatient visit 25 minutes Tiffany FLORES Work Phone: [facility] Comment on above: Other cardiac arrhyt hmia (Primary Dx); Shortness of breath; Paroxysmal atrial fibrillation; Premature atrial complexes; Coronary artery calcification Start: 11-06-2023 End: 11-06-2023 Subsequent hospital visit by physician Tiffany FLORES Work Phone: [facility] [place] Start: 11-03-2023 End: 11-03-2023 Telephone encounter Madie Schuster RN [facility] Comment on above: Outside Medical Anderson rds Request (See note) Start: 11-01-2023 End: 11-01-2023 Office outpatient new 45 minutes Tiffany FLORES Work Phone: [facility] Comment on above: Paroxysmal atrial fi brillation (Primary Dx); Shortness of breath; Palpitations Start: 08-31-2023 Telephone encounter Hussein whitley APRN.TRUCK LEASING MANAGER Work Phone: [facility] Comment on above: No Show Start: 08-23-2023 End: 08-23-2023 Office outpatient visit 40 minutes Erwin David MD Work Phone: Division of Medical Oncology Comment on above: 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) Start: 08-12-2023 End: 08-15-2023 Evaluation and management of inpatient Tawana Deluca MD Work Phone: [email or web address] Comment on above: Jaundice Start: 08-11-2023 End: 08-12-2023 Emergency department patient visit Marcellus Bishop MD, PhD Work Phone: [facility] Emergency Department Start: 08-04-2023 End: 08-04-2023 ambulatory [facility] Facility:[facility] Start: 08-04-2023 End: 08-04-2023 Subsequent hospital visit by physician Erwin [facility] Pavel Jerome Work Phone: Radiology Comment on above: Compression fracture of T7 vertebra, initial encounter (HCC) [S22.060A] Start: 07-31-2023 Telephone encounter Eric patterson MD Work Phone: [facility] Comment on above: Appointment Start: 06-30-2023 End: 06-30-2023 Office outpatient visit 40 minutes Erwin David MD Work Phone: Division of Medical Oncology Comment on above: 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 Comment on above: Arrived Start: 06-06-2023 End: 06-06-2023 Office outpatient visit 25 minutes Eric Rincon MD Work Phone: [facility] Comment on above: Compression fracture of T7 vertebra, initial encounter (HCC) (Primary Dx); Foraminal stenosis of lumbar region; Chronic atrial fibrillation (HCC) Start: 06-06-2023 End: 06-06-2023 ambulatory [facility] Facility:[facility] Start: 05-23-2023 End: 05-23-2023 ambulatory [facility] Facility:[facility] Start: 05-23-2023 End: 05-23-2023 Subsequent hospital visit by physician Mri Radio [facility] Wstr (I-Stat/1.5t) Work Phone: Radiology Comment on above: Spinal stenosis of l umbar region with neurogenic claudication [M48.062] Start: 05-03-2023 End: 05-03-[address] Blanca Cruz Work Phone: [facility] Work Phone: Start: 05-03-2023 End: 05-03-[address] Blanca Cruz Work Phone: [facility] Work Phone: Start: 04-25-2023 End: 04-25-2023 Office outpatient new 45 minutes Eric Rincon MD Work Phone: [facility] Comment on above: Compression fracture of T7 vertebra, initial encounter ([facility]) (Primary Dx); Spinal stenosis of lumbar region with neurogenic claudication; Spinal stenosis of cervical region; Pathological fracture, other site, initial encounter for fracture Start: 04-25-2023 End: 04-25-2023 ambulatory EDGAR Mk MELTON Facility:[facility] Start: 04-25-2023 End: 04-25-2023 Subsequent hospital visit by physician Xr [place] [employer] [facility] [place] [employer] Comment on above: Compression fracture of T11 vertebra, sequela [S22.080S] Start: 04-20-2023 End: 04-21-2023 ambulatory [facility] Start: 04-20-2023 Telephone encounter Eric patterson MD Work Phone: [facility] Comment on above: Patient Update Start: 04-14-2023 End: 04-14-[address] Blanca Cruz Work Phone: [facility] Work Phone: Start: 04-14-2023 End: 04-14-[address] Blanca Cruz Work Phone: [facility]-Outpatient Breast Imaging Work Phone: Start: 04-13-[address] Blanca persaud Work Phone: [facility] Start: 04-13-2023 End: 04-13-[address] 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 Blanca Cruz Work Phone: [facility] Work Phone: Start: 01-10-2023 End: 01-10-[address] Blanca Cruz Work Phone: [facility] Work Phone: Start: 01-04-2023 End: 01-04-2023 Office consultation new/estab patient 60 min Esme Perez MD Work Phone: Division of Endocrinology Comment on above: Thyroid nodule (Prim carina Dx) Start: 11-18-2022 End: 11-18-2022 Subsequent hospital visit by physician Britany Jane PAC Work Phone: Imaging at [facility] Comment on above: Arrived Start: 10-07-2022 End: 10-07-2022 Office outpatient visit 40 minutes Erwin David MD Work Phone: Division of Medical Oncology Comment on above: Neuroendocrine tumor (Primary Dx); Neoplastic (malignant) related fatigue Start: 10-07-2022 End: 10-07-2022 Clinical Support Encounter Erwin David MD Work Phone: Clinical Lab [facility] [place] 1 Comment on above: Neuroendocrine cance r; Neuroendocrine tumor; Neoplastic (malignant) related fatigue Start: 09-08-2022 End: 09-08-2022 Subsequent hospital visit by physician Britany Jane PAC Work Phone: Imaging at [facility] Comment on above: Arrived Start: 07-16-2022 End: 07-16-2022 Emergency department patient visit Dr. Blanca Cruz Work Phone: [facility]-Emergency Department Start: 06-30-2022 End: 06-30-[address] Blanca Cruz Work Phone: [facility] Start: 06-30-[address] Blanca persaud Work Phone: [facility] Start: 06-21-2022 End: 06-21-[address] Blanca Cruz Work Phone: [facility] Start: 05-31-2022 End: 05-31-[address] Blanca Cruz Work Phone: [facility] Start: 05-26-2022 End: 05-26-[address] Blanca Cruz Work Phone: [facility] Start: 05-07-2022 End: 05-07-[address] Blanca Cruz Work Phone: [facility] Work Phone: Start: 05-07-2022 End: 05-07-[address] Blanca Cruz Work Phone: [facility]-Laboratory, Specimen Start: 05-05-2022 End: 05-05-[address] Blanca Cruz Work Phone: [facility] Work Phone: Start: 05-05-2022 End: 05-05-[address] Blanca Cruz Work Phone: [facility]-Laboratory, [place] Start: 05-05-[address] Blanca persaud Work Phone: [facility] Start: 05-05-2022 End: 05-05-[address] Blanca Cruz Work Phone: [facility] Start: 05-03-2022 End: 05-03-[address] Blanca Cruz Work Phone: [facility] Work Phone: Start: 05-03-2022 End: 05-03-[address] Blanca Cruz Work Phone: [facility]-Radiology, [place] Start: 04-12-2022 End: 04-12-[address] Blanca Cruz Work Phone: [facility]-Outpatient Breast Imaging Start: 04-07-2022 End: 04-07-[address] Blanca Cruz Work Phone: [facility] Start: 03-09-2022 End: 03-09-[address] Blanca Cruz Work Phone: [facility] Start: 02-18-2022 End: 02-18-2022 Office outpatient visit 40 minutes Erwin David MD Work Phone: Division of Medical Oncology Comment on above: Neuroendocrine cance r (Primary Dx) Start: 02-08-2022 End: 02-08-[address] Blanca Cruz Work Phone: [facility] Start: 02-03-2022 End: 02-03-2022 Subsequent hospital visit by physician Erwin David MD Work Phone: [facility] Comment on above: Arrived Start: 01-11-2022 End: 01-11-[address] Blanca Cruz Work Phone: [facility] Start: 11-08-2021 End: 11-08-[address] Blanca Cruz Work Phone: [facility] Work Phone: Start: 11-08-2021 End: 11-08-[address] Blanca Cruz Work Phone[facility] Start: 11-02-2021 End: 11-02-[address] Blanca Cruz Work Phone: [facility] Work Phone: Start: 11-02-2021 End: 11-02-[address] Blanca Cruz Work Phone: [facility]-Outpatient Bone Densitometry Start: 10-26-[address] Blanca persaud Work Phone: [facility] Start: 10-26-2021 End: 10-26-[address] Blanca Cruz Work Phone: [facility] Start: 09-28-2021 End: 09-28-[address] Blanca Cruz Work Phone: [facility] Start: 08-31-2021 End: 08-31-[address] Blanca Cruz Work Phone: [facility] Start: 08-27-2021 End: 08-27-2021 Office outpatient visit 40 minutes Erwin David MD Work Phone: Division of Medical Oncology Comment on above: Neuroendocrine tumor (Primary Dx); Metastatic malignant neuroendocrine tumor to liver Start: 08-13-2021 End: 08-13-2021 Clinical Support Encounter Erwin David MD Work Phone: [facility] Comment on above: Neuroendocrine tumor Start: 08-03-2021 End: 08-03-[address] 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 Blanca Cruz Work Phone: [facility]-Emergency Department Start: 06-16-2021 Non-patient / Non-visit Dr. Cara Cruz Work Phone: [facility] Start: 06-16-2021 End: 06-16-2021 Emergency department patient visit Dr. 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 Blanca persaud Work Phone: [facility] Start: 05-31-2021 End: 06-01-2021 Subsequent hospital visit by physician Juan A Alvarenga MD, PhD, MPH Work Phone: [email or web address] Comment on above: Neuroendocrine cance r Start: 05-27-2021 End: 05-27-[address] Blanca Cruz Work Phone: [facility] Start: 05-21-2021 End: 05-21-[address] Blanca Cruz Work Phone: [facility] Start: 05-11-2021 End: 05-11-[address] Blanca Cruz Work Phone: [facility] Start: 04-14-2021 End: 04-14-[address] Blanca Cruz Work Phone: [facility]Laboratory Start: 04-13-2021 End: 04-13-[address] Blanca Cruz Work Phone: [facility] Start: 04-13-2021 End: 04-13-[address] Blanca Cruz Work Phone: [facility] Start: 03-17-2021 End: 03-17-[address] Blanca Cruz Work Phone: [facility]-Laboratory, Spec[facility] Start: 03-17-2021 End: 03-17-[address] [facility] Start: 03-16-2021 End: 03-16-[address] Blanca Cruz Work Phone: [facility] Start: 03-04-2021 End: 03-04-[address] Blanca [facility] Start: 02-18-2021 End: 02-18-[address] Blanca Cruz Work Phone: [facility] Procedures Date Procedure Procedure Detail Performing Clinician Start: 12-13-2024 Rp loclzj shahid plnr w hole body 2+ days imaging Erwin David MD Work Phone: Start: 11-08-2024 CBC AND ELECTRONIC DIFF Clint Pazin FINANCIAL SERVICES MANAGER-TRUCK LEASING MANAGER Work Phone: Start: 11-08-2024 Complete blood count with white cell differential, automated Clint Pazin FINANCIAL SERVICES MANAGER-TRUCK LEASING MANAGER Work Phone: Start: 11-08-2024 Comprehensive metabo lic panel Clint Pazin FINANCIAL SERVICES MANAGER-TRUCK LEASING MANAGER Work Phone: Start: 09-20-2024 Rp loclzkendrick shahid plnr w hole body 2+ days imaging Erwin David MD Work Phone: Start: 09-18-2024 Natriuretic peptide Unn julio cesar Babin SANDRA Work Phone: Start: 09-06-2024 CBC AND ELECTRONIC DIFF Erwin David MD Work Phone: Start: 09-06-2024 Complete blood count with white cell differential, automated Erwin David MD Work Phone: Start: 09-06-2024 Comprehensive metabo lic panel Erwin David MD Work Phone: Start: 07-26-2024 Rp loclzj shahid plnr w hole body 2+ days imaging Erwin David MD Work Phone: Start: 06-07-2024 Mri abdomen w/o & w/contrast material Clint B Emily FINANCIAL SERVICES MANAGER-TRUCK LEASING MANAGER Work Phone: Start: 06-07-2024 Ct thorax w/o contra st material Clint B Emily FINANCIAL SERVICES MANAGER-TRUCK LEASING MANAGER Work Phone: Start: 06-07-2024 CBC AND ELECTRONIC DIFF Clint B Emily FINANCIAL SERVICES MANAGER-TRUCK LEASING MANAGER Work Phone: Start: 06-07-2024 Complete blood count with white cell differential, automated Clint B Emily FINANCIAL SERVICES MANAGER-TRUCK LEASING MANAGER Work Phone: Start: 06-07-2024 Comprehensive metabo lic panel Clint B Emily FINANCIAL SERVICES MANAGER-TRUCK LEASING MANAGER Work Phone: Start: 06-06-[address] Blanca Cruz MD Work Phone: Start: 06-06-[address] Blanca Cruz MD Work Phone: Start: 06-06-[address] Blanca antoine MD Work Phone: Comment on above: Test Ordered: [id number] C-Telopeptide, SerumC-Telopeptide, Serum 221 pg/mL ES Reference Range: .Reference Range:Premenopausal Women: 34 - 635Postmenopausal Women: 34 - 1037Performed at: ES - [facility] [id number] [place], [place] [id number] Director: Peterson Russell MD, Phone: [phone] at: - [facility] [address] [place], [place] [id number] Director: Abdulaziz Jane PhD, Phone: [phone] Start: 06-06-2024 Serum inorganic phos phate measurement Dr. Blanca Cruz MD Work Phone: Start: 06-06-2024 Vitamin D, 25-hydrox y measurement Dr. Blanca Cruz MD Work Phone: Comment on above: Vitamin D StatusDefi ciency: <20 ng/mL (50nmol/L)Insufficiency: 20-30 ng/mL (50-75 nmol/L)Sufficiency: 30-100 ng/mL (75-250 nmol/L)Toxicity: >100 ng/mL (>250 nmol/L) Start: 06-06-2024 Evaluation of diagno stic study results Dr. Blanca Cruz MD Work Phone: Start: 04-01-2024 X-ray of lumbar spin e, two or three views Dr. Blanca Cruz MD Work Phone: Start: 04-01-2024 X-ray of thoracic sp ine, three views Dr. Blanca Cruz MD Work Phone: Start: 04-01-2024 Measurement of renal function Dr. Blanca Cruz MD Work Phone: Comment on above: GFR Calc Start: 01-10-2024 Us soft tissue head & neck real time imge docm Esme Perez MD Work Phone: Start: 01-01-2024 Mri abdomen w/o & w/contrast material Doris Maharaj FINANCIAL SERVICES MANAGER-TRUCK LEASING MANAGER Work Phone: Start: 01-01-2024 CBC AND ELECTRONIC DIFF Doris Maharaj FINANCIAL SERVICES MANAGER-TRUCK LEASING MANAGER Work Phone: Start: 01-01-2024 Complete blood count with white cell differential, automated Doris Maharaj FINANCIAL SERVICES MANAGER-TRUCK LEASING MANAGER Work Phone: Start: 01-01-2024 Comprehensive metabo lic panel Doris Maharaj FINANCIAL SERVICES MANAGER-TRUCK LEASING MANAGER Work Phone: Start: 12-15-2023 L hrt cath w/njx l ventriculography img s&i Tiffany Babin [facility] Work Phone: Start: 12-15-2023 Cardiac catheterization Tiffany Babin [facility] Work Phone: Start: 12-15-2023 Prothrombin time Fifi Concepcion MD Work Phone: Start: 12-08-[address] [facility] Nicanorfeliz Babin [facility] Work Phone: Start: 12-08-2023 Ecg routine ecg w/le ast 12 lds trcg only w/o i&r Unnjulio cesar Babin [facility] Work Phone: Start: 11-06-2023 Myocardial spect mul tiple studies Tiffany Babin [facility] Work Phone: Start: 11-01-2023 Natriuretic peptide Unn julio cesar Babin [facility] Work Phone: Start: 08-23-2023 Comprehensive metabo lic panel Erwin David MD Work Phone: Start: 08-15-2023 Assay of magnesium Loreto Kumar MD Work Phone: Start: 08-15-2023 Hepatic function panel Julianne Kumar MD Work Phone: Start: 08-14-2023 Assay of magnesium Loreto Kumar MD Work Phone: Start: 08-14-2023 Hepatic function panel Julianne Kumar MD Work Phone: Start: 08-13-2023 Antibody screen Tawana Deluca MD Work Phone: Start: 08-13-2023 End: 08-13-2023 Lactate dehydrogenase ldh Chai roca MD Work Phone: Start: 08-13-2023 Radiologic exam ches t single view Chai Espinosa MD Work Phone: Start: 08-13-2023 End: 08-13-2023 Hepatic function panel Julianne Kumar MD Work Phone: Start: 08-12-2023 Mri abdomen w/o & w/contrast material Junior Dior MD Work Phone: Start: 08-12-2023 Thromboplastin time partial plasma/whole blood Francisco Gutierrez MD Work Phone: Start: 08-12-2023 Thromboplastin time partial plasma/whole blood Francisco Gutierrez MD Work Phone: Start: 08-12-2023 End: 08-12-2023 Culture bacterial blood aerobic w/id isolates Francisco Gutierrez MD Work Phone: Start: 08-12-2023 Assay of folic acid serum Junior Dior MD Work Phone: Start: 08-12-2023 Iadna nos quantifica tion each organism Junior Dior MD Work Phone: Start: 08-12-2023 Us abdominal real ti me w/image limited Julianne Kumar MD Work Phone: Start: 08-12-2023 EXTRA MICRO Julianne little MD Work Phone: Start: 08-12-2023 URINALYSIS REFLEX TO CULTURE Julianne Kumar MD Work Phone: Start: 08-12-2023 Urnls dip stick/tabl et reagent auto microscopy Julianne Kumar MD Work Phone: Start: 08-12-2023 Assay of ferritin Aquilino Dior MD Work Phone: Start: 08-12-2023 Hepatic function panel Julianne Kumar MD Work Phone: Start: 08-11-2023 ANTI SMOOTH MUSCLE ANTIBODY Junior Dior MD Work Phone: Start: 08-11-2023 Assay of lipase Coy Bagley MD Work Phone: Start: 08-11-2023 CBC AND ELECTRONIC DIFF Coy Bagley MD Work Phone: Start: 08-11-2023 Complete blood count with white cell differential, automated Coy Bagley MD Work Phone: Start: 08-11-2023 GOLD TOP TUBE Coy Bagley MD Work Phone: Start: 08-11-2023 Hepatic function panel Coy Bagley MD Work Phone: Start: 08-11-2023 LAVENDER TOP TUBE Karely Bagley MD Work Phone: Start: 08-11-2023 LT BLUE TOP TUBE Coy Bagley MD Work Phone: Start: 08-11-2023 MANUAL DIFF Coy san MD Work Phone: Start: 08-11-2023 MINT GREEN TOP TUBE Desirae Bagley MD Work Phone: Start: 08-11-2023 RAINBOW DRAW Coy san MD Work Phone: Start: 06-30-2023 CBC AND ELECTRONIC DIFF Britany Buck PA-C Work Phone: Start: 06-30-2023 Complete blood count with white cell differential, automated Britany Buck PA-C Work Phone: Start: 06-30-2023 Comprehensive metabo lic panel Britany Buck PA-C Work Phone: Start: 05-23-2023 Mri spinal canal cer vical w/o contrast matrl Eric Rincon MD Work Phone: Start: 04-14-2023 Screening mammography D rKatelynn Cruz Work Phone: Start: 03-24-2023 Mri abdomen w/o & w/contrast material Britany Buck PAC Work Phone: Start: 11-18-2022 Us soft tissue head & neck real time imge docm Britany Jane PAC Work Phone: Start: 10-07-2022 CBC AND ELECTRONIC DIFF Britany Buck PAC Work Phone: Start: 10-07-2022 Complete blood count with white cell differential, automated Britany Jane PAC Work Phone: Start: 10-07-2022 Comprehensive metabo lic panel Britany Jane PAC Work Phone: Start: 07-16-2022 Computed tomography of thoracic spine without contrast Dr. Blanca Cruz Work Phone: Start: 07-16-2022 CT of chest without contrast Dr. Blanca Cruz Work Phone: Start: 07-16-2022 Plain X-ray of shoulder Dr. Blanca Cruz Work Phone: Start: 05-26-2022 MRI of joint of lowe r extremity Dr. Blanca Cruz Work Phone: Start: 05-26-2022 MRI of lower extremity Dr. Blanca Cruz Work Phone: Start: 05-03-[address] Katelynn Cruz Work Phone: Start: 04-12-2022 Screening mammography D hanna Cruz Work Phone: Start: 03-09-2022 Plain x-ray of humerus Dr. Blanca Cruz Work Phone: Start: 02-03-[address] atten uation skull base mid-thigh Erwin David MD Work Phone: Start: 11-02-2021 Dual energy X-ray absorptiometry Dr. Blanca Cruz Work Phone: Start: 08-13-2021 CBC AND ELECTRONIC DIFF Britany Jane PA-C Work Phone: Start: 08-13-2021 Complete blood count with white cell differential, automated Britany Buck PA-C Work Phone: Start: 08-13-2021 Comprehensive metabo lic panel Britany Buck PA-C Work Phone: Start: 06-29-2021 CBC AND ELECTRONIC DIFF Britany Buck PA-C Work Phone: Start: 06-29-2021 Complete blood count with white cell differential, automated Britany Buck PA-C Work Phone: Start: 06-29-2021 Comprehensive metabo lic panel Britany Buck PA-C Work Phone: Start: 06-19-2021 Computed tomography of abdomen and pelvis with intravenous contrast Dr. Blanca Cruz Work Phone: Start: 06-19-2021 CT angiography of ch est with contrast Dr. Blanca Cruz Work Phone: Start: 06-16-2021 Plain X-ray of femur Dr Katelynn Cruz Work Phone: Start: 06-16-2021 Plain X-ray of tibia and fibula Dr. Blanca Cruz Work Phone: Start: 06-16-2021 Hepatic function panel Ying L Abdulaziz FINANCIAL SERVICES MANAGER-TRUCK LEASING MANAGER Work Phone: Start: 06-16-2021 Lactate dehydrogenase ldh Ying L Abdulaziz FINANCIAL SERVICES MANAGER-TRUCK LEASING MANAGER Work Phone: Start: 06-01-2021 Bilirubin direct Hussein Salazar Vida FINANCIAL SERVICES MANAGER-TRUCK LEASING MANAGER Work Phone: Start: 06-01-2021 CBC AND ELECTRONIC DIFF Hussein Marie Vida FINANCIAL SERVICES MANAGER-TRUCK LEASING MANAGER Work Phone: Start: 06-01-2021 Complete blood count with white cell differential, automated Hussein Salazar Vida FINANCIAL SERVICES MANAGER-TRUCK LEASING MANAGER Work Phone: Start: 05-31-2021 Vascular embolize/oc clude organ tumor infarct Humberto Rush MD Work Phone: Start: 05-31-2021 End: 05-31-2021 Bilirubin direct Hussein Mcpherson FINANCIAL SERVICES MANAGER-TRUCK LEASING MANAGER Work Phone: Start: 05-31-2021 CBC AND ELECTRONIC DIFF Hussein Mcpherson FINANCIAL SERVICES MANAGER-TRUCK LEASING MANAGER Work Phone: Start: 05-31-2021 Complete blood count with white cell differential, automated Hussein Mcpherson FINANCIAL SERVICES MANAGER-TRUCK LEASING MANAGER Work Phone: Start: 04-13-2021 US scan of thyroid Dr. Blanca Cruz Work Phone: Start: 10-13-2020 Positron emission tomography with computed tomography Dr. Blanca Cruz Work Phone: H/O: hysterectomy History of hysterectomy Dr. Blanca Cruz Work Phone: H/O: surgery History of surge ry on left wrist Dr. Blanca Cruz Work Phone: History of appendectomy History of appendectomy Dr. Blanca Cruz Work Phone: History of mastectomy History of breast lump removal Dr. Blanca Cruz Work Phone: History of operative procedure on knee Hx of arthroscopic knee surgery Dr. Blanca Cruz Work Phone: Comment on above: Right X4 Plan of Treatment Date Care Activity Detail Author Start: 08-22-2026 Diabetes Screening Diabetes Screening [facility] Start: 06-29-2026 Diabetes Screening Diabetes Screening [facility] Start: 03-24-2026 Diabetes Screening Diabetes Screening [facility] Start: 11-08-2025 Potassium [Moles/volume] in Serum or Plasma POTASSIUM [facility] Start: 09-06-2025 Potassium [Moles/volume] in Serum or Plasma POTASSIUM [facility] Start: 06-07-2025 Potassium [Moles/volume] in Serum or Plasma POTASSIUM [facility] Start: 03-26-2025 End: 03-26-2025 Patient encounter procedure 03/26/2025 9:00 AM EST Office Visit [address] 12th [place] [address] Tiffany Babin MBBS [address] [facility] [address] [place] [address] [facility] Start: 02-17-2025 End: 02-17-2025 Patient encounter procedure 02/17/2025 9:00 AM EST Appointment [facility] [address] [place] [phone] Erwin David MD [address] [phone] [facility] 1 Start: 02-17-2025 End: 02-17-2025 ambulatory 02/17/2025 8:30 AM EST Infusion Visit Division [facility] at [facility] [address] [place] [address] [facility] Start: 01-17-2025 End: 01-17-2025 Patient encounter procedure 01/17/2025 8:00 AM EST Appointment [facility] [address] [place] [phone] Erwin David MD [address] [phone] [facility] 1 Start: 01-17-2025 End: 01-17-2025 ambulatory 01/17/2025 7:30 AM EST Infusion Visit Division [facility]otherapy at [facility] [address] [place] [address] [facility] Start: 01-03-2025 End: 01-03-2025 Patient encounter procedure 01/03/2025 8:00 AM EST Appointment [facility] 1 [address] [place] [phone] Erwin David MD [address] [phone] [facility] 1 Start: 01-03-2025 End: 01-03-2025 ambulatory 01/03/2025 7:30 AM EST Infusion Visit Division [facility] at [facility] [address] [place] [address] [facility] Start: 12-31-2024 Potassium [Moles/volume] in Serum or Plasma POTASSIUM [facility] Start: 12-20-2024 End: 11-08-2025 CHROMOGRANIN A CHROMOGRANIN A Lab Routine Neuroendocrine tumor Expected: 12/20/2024 (Approximate), Expires: 11/08/2025 [facility] Comment on above: Expected: 12/20/2024 (Approximate), Expi res: 11/08/2025 Start: 12-20-2024 End: 11-08-2025 Complete blood count with white cell differential, automated CBC, EDIF, PLATELET Lab Routine Neuroendocrine tumor Expected: 12/20/2024, Expires: 11/08/2025 [facility] Comment on above: Expected: 12/20/2024, Expires: Start: 12-20-2024 End: 11-08-2025 Comprehensive metabolic 2000 panel - Serum or Plasma COMPREHENSIVE METABOLIC PANEL Lab Routine Neuroendocrine tumor Expected: 12/20/2024, Expires: 11/08/2025 [facility] Comment on above: Expected: 12/20/2024, Expires: Start: 12-20-2024 End: 11-08-2025 GASTRIN - NON-STIMULATED GASTRIN - NON-STIMULATED Lab Routine Neuroendocrine tumor Expected: 12/20/2024 (Approximate), Expires: 11/08/2025 [facility] Comment on above: Expected: 12/20/2024 (Approximate), Expi res: 11/08/2025 Start: 12-20-2024 End: 11-08-2025 Lactate dehydrogenase [Enzymatic activity/volume] in Serum or Plasma LACTATE DEHYDROGENASE Lab Routine Neuroendocrine tumor Expected: 12/20/2024, Expires: 11/08/2025 [facility] Comment on above: Expected: 12/20/2024, Expires: Start: 12-20-2024 End: 12-20-2024 Clinical Support Encounter Clinical Lab Hilda Chisholm 1 Start: 12-13-2024 End: 12-13-2024 Patient encounter procedure 12/13/2024 8:00 AM EDT Appointment [facility] 1 [address] [place] [phone] Erwin David MD [address] [phone] [facility] 1 Start: 12-13-2024 End: 12-13-2024 ambulatory 12/13/2024 7:30 AM EDT Infusion Visit Division [facility] at [facility] [address] [place] [address] [facility] Start: 11-15-2024 End: 11-15-2024 Patient encounter procedure 11/15/2024 8:00 AM EDT Appointment [facility] 1 [address] [place] [phone] Erwin David MD [address] [phone] [facility] 1 Start: 11-15-2024 Subsequent hospital visit by physician 11/15/2024 8:00 AM EDT Hospital Encounter [facility] 1 [address] [place] [phone] Erwin David MD [address] [phone] [facility] 1 Start: 11-15-2024 End: 11-15-2024 ambulatory 11/15/2024 7:30 AM EDT Infusion Visit Division [facility] at [facility] [address] [place] [address] [facility] Start: 11-13-2024 End: 12-11-2024 OUTSIDE LAB ORDERS OUTSIDE LAB ORDERS Outside Labs Routine Neuroendocrine tumor Expected: 11/13/2024, Expires: 12/11/2024 [facility] Comment on above: Expected: 11/13/2024, Expires: Start: 11-08-2024 End: 12-06-2024 OUTSIDE LAB ORDERS OUTSIDE LAB ORDERS Outside Labs Routine Neuroendocrine tumor Expected: 11/08/2024, Expires: 12/06/2024 [facility] Comment on above: Expected: 11/08/2024, Expires: Start: 11-08-2024 End: 11-08-2024 Patient encounter procedure [facility] 1 Start: 11-08-2024 End: 11-08-2024 ambulatory 11/08/2024 7:30 AM EDT Infusion Visit Division [facility] at [facility] [address] [facility] [place] [address] [facility] Start: 10-23-2024 End: 10-23-2024 Clinical Support Encounter Clinical Lab Hilda Chisholm 1 Start: 10-23-2024 End: 09-06-2025 CHROMOGRANIN A CHROMOGRANIN A Lab Routine Neuroendocrine tumor Expected: 10/23/2024 (Approximate), Expires: 09/06/2025 [facility] Comment on above: Expected: 10/23/2024 (Approximate), Expi res: 09/06/2025 Start: 10-23-2024 End: 09-06-2025 Complete blood count with white cell differential, automated CBC, EDIF, PLATELET Lab Routine Neuroendocrine tumor Expected: 10/23/2024 (Approximate), Expires: 09/06/2025 [facility] Comment on above: Expected: 10/23/2024 (Approximate), Expi res: 09/06/2025 Start: 10-23-2024 End: 09-06-2025 Comprehensive metabolic 2000 panel - Serum or Plasma COMPREHENSIVE METABOLIC PANEL Lab Routine Neuroendocrine tumor Expected: 10/23/2024 (Approximate), Expires: 09/06/2025 [facility] Comment on above: Expected: 10/23/2024 (Approximate), Expi res: 09/06/2025 Start: 10-23-2024 End: 09-06-2025 GASTRIN - NON-STIMULATED GASTRIN - NON-STIMULATED Lab Routine Neuroendocrine tumor Expected: 10/23/2024 (Approximate), Expires: 09/06/2025 [facility] Comment on above: Expected: 10/23/2024 (Approximate), Expi res: 09/06/2025 Start: 10-23-2024 End: 09-06-2025 Lactate dehydrogenase [Enzymatic activity/volume] in Serum or Plasma LACTATE DEHYDROGENASE Lab Routine Neuroendocrine tumor Expected: 10/23/2024 (Approximate), Expires: 09/06/2025 [facility] Comment on above: Expected: 10/23/2024 (Approximate), Expi res: 09/06/2025 Start: 10-18-2024 End: 09-06-2025 CT Chest WO contrast CT CHEST WITHOUT CONTRAST Imaging Routine Neuroendocrine tumor Expected: 10/18/2024 (Approximate), Expires: 09/06/2025 [facility] Comment on above: Expected: 10/18/2024 (Approximate), Expi res: 09/06/2025 Start: 10-18-2024 End: 09-06-2025 Magnetic resonance imaging of abdomen and pelvis with contrast MRI ABDOMEN/PELVIS WITHOUT AND WITH CONTRAST Imaging Routine Neuroendocrine tumor Expected: 10/18/2024 (Approximate), Expires: 09/06/2025 [facility] Comment on above: Expected: 10/18/2024 (Approximate), Expi res: 09/06/2025 Start: 10-14-2024 COVID-19 VACCINE (2024- season) COVID-19 VACCINE ( season) [facility] Start: 10-14-2024 COVID-19 VACCINE (6 - Moderna risk season) COVID-19 VACCINE (6 - Moderna risk season) [facility] Start: 10-14-2024 Influenza vaccination INFLUENZA VACCINE (#1) [facility] Start: 09-20-2024 End: 09-20-2024 Patient encounter procedure 09/20/2024 8:00 AM EDT Appointment [facility] 1 [address] [place] [phone] Erwin David MD [address] [place] [address] [place] [phone] [facility] 1 Start: 09-20-2024 Subsequent hospital visit by physician 09/20/2024 8:00 AM EDT Hospital Encounter [facility] 1 [address] [place] [phone] Erwin David MD [address] [place] [address] [place] [phone] [facility] 1 Start: 09-20-2024 End: 09-20-2024 ambulatory [facility] Start: 09-18-2024 End: 09-18-2024 Patient encounter procedure 09/18/2024 9:00 AM EDT Office Visit [facility] [address] [phone] Tiffany Babin MBBS [address] [phone] [facility] Start: 09-13-2024 End: 09-13-2024 Patient encounter procedure [facility] Start: 09-13-2024 End: 09-13-2024 ambulatory 09/13/2024 7:30 AM EDT Infusion Visit Division [facility] Chemotherapy at [facility] [address] [place] [address] [facility] Start: 08-23-2024 End: 08-23-2024 Clinical Support Encounter Clinical Lab Hilda Chisholm 1 Start: 07-26-2024 End: 07-26-2024 Patient encounter procedure 07/26/2024 8:00 AM EDT Appointment [facility] [address] [place] [address], [place] [phone] Erwin David MD [address] [phone] [facility] 1 Start: 07-26-2024 End: 07-26-2024 ambulatory 07/26/2024 7:30 AM EDT Infusion Visit Division [facility] Chemotherapy at [facility] [address] [place] [address] [facility] at [facility] Start: 07-19-2024 Subsequent hospital visit by physician 07/19/2024 8:00 AM EDT Hospital Encounter [facility] 1 [address] [place] [address], [place] [phone] Erwin David MD [address] [phone] [facility] 1 Start: 07-19-2024 End: 07-19-2024 ambulatory 07/19/2024 7:30 AM EDT Infusion Visit Division [facility] Chemotherapy at [facility] [address] [place] [facility] [place] [address] [facility] at [facility] Start: 07-18-2024 End: 07-11-2025 OUTSIDE LAB ORDERS OUTSIDE LAB ORDERS Outside Labs Routine Neuroendocrine tumor Expected: 07/18/2024 (Approximate), Expires: 07/11/2025 [facility] Comment on above: Expected: 07/18/2024 (Approximate), Expi res: 07/11/2025 Start: 07-15-2024 Chromogranin A measurement [facility] Start: 06-14-2024 End: 06-14-2024 Patient encounter procedure 06/14/2024 10:30 AM EDT Office Visit Division of Medical Oncology [address] [phone] Erwin David MD [address] [place] [address] [place] [phone] Division of Medical Oncology Start: 06-12-2024 End: 06-12-2024 Patient encounter procedure 06/12/2024 11:30 AM EDT Office Visit Division of Medical Oncology [address] [place] [phone] Erwin David MD [address] [place] [address] [place] [phone] Division of Medical Oncology Start: 06-11-2024 Contact precautions [facility] Start: 06-07-2024 End: 06-07-2024 Clinical Support Encounter Clinical Lab [place]ilda [place] [address] Start: 05-10-2024 End: 05-10-2024 Patient encounter procedure 05/10/2024 12:30 PM EDT Office Visit Division of Medical Oncology [address] [place] [phone] Erwin David MD [address] [place] [phone] Division of Medical Oncology Start: 05-06-2024 COVID-19 VACCINE ( season) COVID-19 VACCINE ( - season) [facility] Start: 05-06-2024 COVID-19 VACCINE (6 - Moderna risk season) COVID-19 VACCINE (6 - Moderna risk season) [facility] Start: 04-30-2024 End: 04-30-2024 Patient encounter procedure 04/30/2024 4:20 PM EDT Appointment Imaging at [facility] [address] [place] [phone] Clint Diaz, FINANCIAL SERVICES MANAGER-TRUCK LEASING MANAGER [address] [place] [address] Imaging at [facility] Start: 04-30-2024 End: 04-30-2024 Clinical Support Encounter Clinical Lab Hilda Chisholm 1 Start: 04-30-2024 End: 03-20-2025 CHROMOGRANIN A CHROMOGRANIN A Lab Routine Neuroendocrine carcinoma metastatic to liver Expected: 04/30/2024 (Approximate), Expires: 03/20/2025 [facility] Comment on above: Expected: 04/30/2024 (Approximate), Expi res: 03/20/2025 Start: 04-30-2024 End: 03-20-2025 Complete blood count with white cell differential, automated CBC, EDIF, PLATELET Lab Routine Neuroendocrine carcinoma metastatic to liver Expected: 04/30/2024 (Approximate), Expires: 03/20/2025 [facility] Comment on above: Expected: 04/30/2024 (Approximate), Expi res: 03/20/2025 Start: 04-30-2024 End: 03-20-2025 Comprehensive metabolic 2000 panel - Serum or Plasma COMPREHENSIVE METABOLIC PANEL Lab Routine Neuroendocrine carcinoma metastatic to liver Expected: 04/30/2024 (Approximate), Expires: 03/20/2025 [facility] Comment on above: Expected: 04/30/2024 (Approximate), Expi res: 03/20/2025 Start: 04-30-2024 End: 03-20-2025 GASTRIN - NON-STIMULATED GASTRIN - NON-STIMULATED Lab Routine Neuroendocrine carcinoma metastatic to liver Expected: 04/30/2024 (Approximate), Expires: 03/20/2025 [facility] Comment on above: Expected: 04/30/2024 (Approximate), Expi res: 03/20/2025 Start: 04-30-2024 End: 03-20-2025 Lactate dehydrogenase [Enzymatic activity/volume] in Serum or Plasma LACTATE DEHYDROGENASE Lab Routine Neuroendocrine carcinoma metastatic to liver Expected: 04/30/2024 (Approximate), Expires: 03/20/2025 [facility] Comment on above: Expected: 04/30/2024 (Approximate), Expi res: 03/20/2025 Start: 04-27-2024 End: 03-20-2025 CT Chest WO contrast CT CHEST WITHOUT CONTRAST Imaging Routine Neuroendocrine carcinoma metastatic to liver Expected: 04/27/2024 (Approximate), Expires: 03/20/2025 [facility] Comment on above: Expected: 04/27/2024 (Approximate), Expi res: 03/20/2025 Start: 04-27-2024 End: 03-20-2025 MR Abdomen WO and W contrast IV MRI ABDOMEN WITH AND WITHOUT CONTRAST Imaging Routine Neuroendocrine carcinoma metastatic to liver Expected: 04/27/2024 (Approximate), Expires: 03/20/2025 [facility] Comment on above: Expected: 04/27/2024 (Approximate), Expi res: 03/20/2025 Start: 03-20-2024 End: 03-20-2024 Telemedicine consultation with patient 03/20/2024 12:30 PM EST Telemedicine Division of Medical Oncology [address] [phone] Erwin David MD [address] [phone] Division of Medical Oncology Start: 03-15-2024 End: 03-15-2024 Patient encounter procedure 03/15/2024 11:00 AM EST Office Visit [facility] [address] [phone] Tiffany Babin MBBS [address] [phone] [facility] Start: 03-08-2024 End: 03-08-2024 Telemedicine consultation with patient 03/08/2024 1:00 PM EST Telemedicine Division of Medical Oncology [address] [phone] Clint Diaz, FINANCIAL SERVICES MANAGER-TRUCK LEASING MANAGER [address] [place] [address] Division of Medical Oncology Start: 02-29-2024 End: 02-29-2024 Telemedicine consultation with patient 02/29/2024 10:30 AM EST Telemedicine Division of Medical Oncology [address] [place] [address] [place] [phone] Clint Diaz, FINANCIAL SERVICES MANAGER-TRUCK LEASING MANAGER [address] [place] [address] Division of Medical Oncology Start: 02-22-2024 End: 02-22-2024 Telemedicine consultation with patient 02/22/2024 9:00 AM EST Telemedicine Division of Medical Oncology [address] [place] [address] [place] [phone] Clint Diaz, FINANCIAL SERVICES MANAGER-TRUCK LEASING MANAGER [address] [place] [address] Division of Medical Oncology Start: 02-21-2024 End: 02-20-2025 OUTSIDE LAB ORDERS OUTSIDE LAB ORDERS Outside Labs Routine Neuroendocrine carcinoma metastatic to liver Expected: 02/21/2024, Expires: 02/20/2025 [facility] Comment on above: Expected: 02/21/2024, Expires: Start: 02-14-2024 End: 01-09-2025 OUTSIDE LAB ORDERS OUTSIDE LAB ORDERS Outside Labs Routine Neuroendocrine carcinoma metastatic to liver Expected: 02/14/2024 (Approximate), Expires: 01/09/2025 [facility] Comment on above: Expected: 02/14/2024 (Approximate), Expi res: 01/09/2025 Start: 01-10-2024 End: 02-07-2024 OUTSIDE LAB ORDERS OUTSIDE LAB ORDERS Outside Labs Routine Neuroendocrine carcinoma metastatic to liver Expected: 01/10/2024, Expires: 02/07/2024 [facility] Comment on above: Expected: 01/10/2024, Expires: Start: 01-10-2024 End: 01-10-2024 Patient encounter procedure Division of Endocrinology Start: 01-04-2024 End: 01-04-2024 Patient encounter procedure 01/04/2024 10:00 AM EST Office Visit Division of Medical Oncology [address] [phone] Clint Diaz, FINANCIAL SERVICES MANAGER-TRUCK LEASING MANAGER [address] [place] [address] Division of Medical Oncology Start: 01-03-2024 End: 01-03-2024 Patient encounter procedure 01/03/2024 2:30 PM EST Office Visit Division of Medical Oncology [address] [phone] Erwin David MD [address] [phone] Division of Medical Oncology Start: 01-01-2024 End: 01-01-2024 Clinical Support Encounter Clinical Lab Hilda Chisholm 1 Start: 12-31-2023 End: 06-29-2024 CHROMOGRANIN A CHROMOGRANIN A Lab Routine Neuroendocrine carcinoma metastatic to liver Expected: 12/31/2023, Expires: 06/29/2024 [facility] Comment on above: Expected: 12/31/2023, Expires: Start: 12-31-2023 End: 06-29-2024 Complete blood count with white cell differential, automated CBC, EDIF, PLATELET Lab Routine Neuroendocrine carcinoma metastatic to liver Expected: 12/31/2023, Expires: 06/29/2024 [facility] Comment on above: Expected: 12/31/2023, Expires: Start: 12-31-2023 End: 06-29-2024 Comprehensive metabolic 2000 panel - Serum or Plasma COMPREHENSIVE METABOLIC PANEL Lab Routine Neuroendocrine carcinoma metastatic to liver Expected: 12/31/2023, Expires: 06/29/2024 [facility] Comment on above: Expected: 12/31/2023, Expires: Start: 12-31-2023 End: 06-29-2024 GASTRIN - NON-STIMULATED GASTRIN - NON-STIMULATED Lab Routine Neuroendocrine carcinoma metastatic to liver Expected: 12/31/2023, Expires: 06/29/2024 [facility] Comment on above: Expected: 12/31/2023, Expires: Start: 12-31-2023 End: 06-29-2024 Lactate dehydrogenase [Enzymatic activity/volume] in Serum or Plasma LACTATE DEHYDROGENASE Lab Routine Neuroendocrine carcinoma metastatic to liver Expected: 12/31/2023, Expires: 06/29/2024 [facility] Comment on above: Expected: 12/31/2023, Expires: 5 Start: 12-24-2023 End: 06-29-2024 CT Chest WO contrast CT CHEST WITHOUT CONTRAST Imaging Routine Neuroendocrine carcinoma metastatic to liver Expected: 12/24/2023, Expires: 06/29/2024 [facility] Comment on above: Expected: 12/24/2023, Expires: Start: 12-24-2023 End: 06-29-2024 MR Abdomen WO and W contrast IV MRI ABDOMEN WITH AND WITHOUT CONTRAST Imaging Routine Neuroendocrine carcinoma metastatic to liver Expected: 12/24/2023, Expires: 06/29/2024 [facility] Comment on above: Expected: 12/24/2023, Expires: Start: 12-15-2023 End: 12-15-2023 Admission to same day surgery center 12/15/2023 9:00 AM EDT - 12/15/2023 10:00 AM EDT Surgery [facility] Cardiovascular Services [address] [facility] 5th [place] [address] Fifi Concepcion MD [address] [place] [address] SCHED CATHETERIZATION HEART CORONARY ANGIOGRAM W/ OR W/O LV ANGIO [facility] Cardiovascular [facility] Comment on above: SCHED CATHETERIZATION HEART CORONARY ANG IOGRAM W/ OR W/O LV ANGIO Start: 12-15-2023 End: 12-15-2023 Cath plmt l h[facility] & arts w/njx & angio img s&i SCHED CATHETERIZATION HEART CORONARY ANGIOGRAM WITH OR WITHOUT LV ANGIO Abnormal cardiovascular stress test 12/15/2023 8:42 AM EDT [facility] CATH/EP Start: 12-15-2023 Subsequent hospital visit by physician 12/15/2023 7:00 AM EDT Hospital Encounter [address] [phone] Fifi Concepcion MD [address] [place] [id number] Shortness of breath [facility] Comment on above: Shortness of breath Start: 12-08-2023 End: 12-08-2023 Patient encounter procedure 12/08/2023 11:00 AM EDT [facility] [place] [address] [phone] Tiffany Babin MBBS [address] [phone] [facility] Start: 11-06-2023 Subsequent hospital visit by physician 11/06/2023 7:45 AM EDT Hospital Encounter [facility] [address] [place] [address] Tiffany Babin MBBS [address] [phone] [facility] Start: 11-01-2023 End: 10-31-2024 Cardiac telemetry MOBILE CARDIAC TELEMETRY ECG Routine Paroxysmal atrial fibrillation Palpitations Expected: 11/01/2023, Expires: 10/31/2024 [facility] Comment on above: Expected: 11/01/2023, Expires: Start: 11-01-2023 End: 10-31-2024 SPECT Heart perfusion at rest and W stress and W radionuclide IV NUC MYOCARD PERF STRESS MIBI PHARM Cardiac Nuclear Medicine Routine Shortness of breath Expected: 11/01/2023, Expires: 10/31/2024 [facility] Comment on above: Expected: 11/01/2023, Expires: Start: 11-01-2023 End: 11-01-2023 Patient encounter procedure 11/01/2023 1:30 PM EDT Office Visit [facility] [address] [phone] Tiffnay Babin MBBS [address] [phone] [facility] Start: 10-15-2023 COVID-19 VACCINE () COVID-19 VACCINE () [facility] Start: 10-15-2023 Influenza vaccination INFLUENZA VACCINE (#1) [facility] Start: 08-31-2023 End: 08-31-2023 Patient encounter procedure 08/31/2023 1:00 PM EDT [facility] [address] [place] [address] Hussein Manning APRN.[facility] [address] [place] [address] new patient ref'd by Eric Rincon MD for Compression fracture of T7 vertebra, initial encounter [facility] Comment on above: new patient ref'd by Eric Rincon MD for Compression fracture of T7 vertebra, initial encounter Start: 08-23-2023 End: 08-22-2024 5 HIAA QUANT,24 HR URINE 5 HIAA QUANT,24 HR URINE Fluids Routine Neuroendocrine carcinoma metastatic to liver Expected: 08/23/2023, Expires: 08/22/2024 [facility] Comment on above: Expected: 08/23/2023, Expires: Start: 08-23-2023 End: 08-23-2023 Patient encounter procedure 08/23/2023 11:15 AM EDT Office Visit Division of Medical Oncology [address] [place] [phone] Erwin David MD [address] [phone] Division of Medical Oncology Start: 08-08-2023 End: 08-08-2023 Patient encounter procedure [facility] Comment on above: XR T & L 3 month follow up 3 mo f/u - will obta in XR prior Start: 06-30-2023 End: 12-30-2023 CHROMOGRANIN A [facility] Comment on above: Expected: 06/30/2023, Expires: Start: 06-30-2023 End: 12-30-2023 Complete blood count with white cell differential, automated CBC, EDIF, PLATELET Lab Routine Metastatic malignant neuroendocrine tumor to liver Expected: 06/30/2023, Expires: 12/30/2023 [facility] Comment on above: Expected: 06/30/2023, Expires: Start: 06-30-2023 End: 12-30-2023 Comprehensive metabolic 2000 panel - Serum or Plasma COMPREHENSIVE METABOLIC PANEL Lab Routine Metastatic malignant neuroendocrine tumor to liver Expected: 06/30/2023, Expires: 12/30/2023 [facility] Comment on above: Expected: 06/30/2023, Expires: 4 Start: 06-30-2023 End: 12-30-2023 GASTRIN - NON-STIMULATED [facility] Comment on above: Expected: 06/30/2023, Expires: Start: 06-30-2023 End: 12-30-2023 Lactate dehydrogenase [Enzymatic activity/volume] in Serum or Plasma LACTATE DEHYDROGENASE Lab Routine Metastatic malignant neuroendocrine tumor to liver Expected: 06/30/2023, Expires: 12/30/2023 [facility] Comment on above: Expected: 06/30/2023, Expires: 4 Start: 06-30-2023 End: 06-30-2023 Patient encounter procedure Imaging [facility] Start: 06-29-2023 End: 12-30-2023 PT Skull base to mid-thigh NUC PET NEUROENDOCRINE Imaging Routine Metastatic malignant neuroendocrine tumor to liver Expected: 06/29/2023, Expires: 12/30/2023 [facility] Comment on above: Expected: 06/29/2023, Expires: Start: 04-20-2023 Covid-19 Vaccine () Covid-19 Vaccine () [facility] Start: 04-09-2023 End: 07-08-2023 CHROMOGRANIN A CHROMOGRANIN A Lab Routine Neuroendocrine tumor Expected: 04/09/2023, Expires: 07/08/2023 [facility] Comment on above: Expected: 04/09/2023, Expires: Start: 04-09-2023 End: 07-08-2023 Complete blood count with white cell differential, automated CBC, EDIF, PLATELET Lab Routine Neuroendocrine tumor Expected: 04/09/2023, Expires: 07/08/2023 [facility] Comment on above: Expected: 04/09/2023, Expires: Start: 04-09-2023 End: 07-08-2023 Comprehensive metabolic 2000 panel - Serum or Plasma COMPREHENSIVE METABOLIC PANEL Lab Routine Neuroendocrine tumor Expected: 04/09/2023, Expires: 07/08/2023 [facility] Comment on above: Expected: 04/09/2023, Expires: Start: 04-09-2023 End: 07-08-2023 CT Chest WO contrast CT CHEST WITHOUT CONTRAST Imaging Routine Neuroendocrine tumor Expected: 04/09/2023, Expires: 07/08/2023 [facility] Comment on above: Expected: 04/09/2023, Expires: Start: 04-09-2023 End: 07-08-2023 GASTRIN - NON-STIMULATED GASTRIN - NON-STIMULATED Lab Routine Neuroendocrine tumor Expected: 04/09/2023, Expires: 07/08/2023 [facility] Comment on above: Expected: 04/09/2023, Expires: 4 Start: 04-09-2023 End: 07-08-2023 Lactate dehydrogenase [Enzymatic activity/volume] in Serum or Plasma LACTATE DEHYDROGENASE Lab Routine Neuroendocrine tumor Expected: 04/09/2023, Expires: 07/08/2023 [facility] Comment on above: Expected: 04/09/2023, Expires: Start: 04-09-2023 End: 07-08-2023 Magnetic resonance imaging of abdomen and pelvis with contrast MRI ABDOMEN/PELVIS WITHOUT AND WITH CONTRAST Imaging Routine Neuroendocrine tumor Expected: 04/09/2023, Expires: 07/08/2023 [facility] Comment on above: Expected: 04/09/2023, Expires: Start: 03-31-2023 End: 03-31-2023 Patient encounter procedure Division of Medical Oncology Start: 03-24-2023 End: 03-24-2023 Clinical Support Encounter Clinical [facility] [place] [id number] Start: 02-13-2023 Advance Directive Discussion Advance Directive Discussion [facility] Start: 02-13-2023 Behavioral Health Screening Behavioral Health Screening [facility] Start: 02-13-2023 Depression Assessment Depression Assessment [facility] Start: 01-04-2023 End: 01-04-2023 Patient encounter procedure 01/04/2023 1:00 PM EST Office Visit Division of Endocrinology [address] [phone] Esme Perez MD [address] [place] [address] [place] [phone] Division of Endocrinology Start: 11-16-2022 End: 11-16-2022 Patient encounter procedure 11/16/2022 2:30 PM EDT Appointment Imaging at [facility] [address] [place], [place] [id number] Britany Jane PAC [address] [phone] Imaging at [facility] Start: 10-14-2022 Covid-19 Vaccine ( season) Covid-19 Vaccine () [facility] Start: 10-14-2022 Influenza vaccination INFLUENZA VACCINE (#1) [facility] Start: 10-07-2022 End: 10-08-2023 US Thyroid gland US THYROID Imaging Routine Neuroendocrine tumor Expected: 10/07/2022, Expires: 10/08/2023 [facility] Comment on above: Expected: 10/07/2022, Expires: 4 Start: 10-07-2022 End: 10-07-2022 Clinical Support Encounter Clinical Lab [facility] Start: 09-02-2022 End: 09-02-2022 Patient encounter procedure 09/02/2022 Office Visit Oncology Erwin David MD [address] [facility] [address] [place] [address] Division of Medical Oncology Start: 08-26-2022 End: 08-26-2022 Clinical Support Encounter Clinical Lab [facility]olm Alonso Start: 08-18-2022 End: 11-18-2022 CHROMOGRANIN A CHROMOGRANIN A Lab Routine Neuroendocrine cancer Expected: 08/18/2022, Expires: 11/18/2022 [facility] Comment on above: Expected: 08/18/2022, Expires: 3 Start: 08-18-2022 End: 11-18-2022 Complete blood count with white cell differential, automated CBC, EDIF, PLATELET Lab Routine Neuroendocrine cancer Expected: 08/18/2022, Expires: 11/18/2022 [facility] Comment on above: Expected: 08/18/2022, Expires: 3 Start: 08-18-2022 End: 11-18-2022 Comprehensive metabolic 2000 panel - Serum or Plasma COMPREHENSIVE METABOLIC PANEL Lab Routine Neuroendocrine cancer Expected: 08/18/2022, Expires: 11/18/2022 [facility] Comment on above: Expected: 08/18/2022, Expires: 3 Start: 08-18-2022 End: 11-18-2022 CT Chest WO contrast CT CHEST WITHOUT CONTRAST Imaging Routine Neuroendocrine cancer Expected: 08/18/2022, Expires: 11/18/2022 [facility] Comment on above: Expected: 08/18/2022, Expires: 3 Start: 08-18-2022 End: 11-18-2022 GASTRIN - NON-STIMULATED GASTRIN - NON-STIMULATED Lab Routine Neuroendocrine cancer Expected: 08/18/2022, Expires: 11/18/2022 [facility] Comment on above: Expected: 08/18/2022, Expires: Start: 08-18-2022 End: 11-18-2022 Lactate dehydrogenase [Enzymatic activity/volume] in Serum or Plasma LACTATE DEHYDROGENASE Lab Routine Neuroendocrine cancer Expected: 08/18/2022, Expires: 11/18/2022 [facility] Comment on above: Expected: 08/18/2022, Expires: 3 Start: 08-18-2022 End: 11-18-2022 Magnetic resonance imaging of abdomen and pelvis with contrast MRI ABDOMEN/PELVIS WITHOUT AND WITH CONTRAST Imaging Routine Neuroendocrine cancer Expected: 08/18/2022, Expires: 11/18/2022 [facility] Comment on above: Expected: 08/18/2022, Expires: 3 Start: 05-31-2022 Patient referral [facility] Work Phone: Start: 04-20-2022 COVID-19 VACCINE (4 - Moderna series) COVID-19 VACCINE (4 - Moderna series) [facility] Start: 02-18-2022 End: 02-18-2022 Patient encounter procedure 02/18/2022 Office Visit Oncology Erwin David MD [address] [facility] [address] [place] [address] Division of Medical Oncology Start: 01-14-2022 End: 01-14-2022 Patient encounter procedure 01/14/2022 Office Visit Oncology Erwin David MD [address] [facility] [address] [place] [phone] Division of Medical Oncology Start: 12-31-2021 End: 12-31-2021 Clinical Support Encounter Division of Hematology & Oncology Start: 12-28-2021 End: 08-27-2022 CHROMOGRANIN A CHROMOGRANIN A Lab Routine Neuroendocrine tumor Expected: 12/28/2021, Expires: 08/27/2022 [facility] Comment on above: Expected: 12/28/2021, Expires: 3 Start: 12-28-2021 End: 08-27-2022 Complete blood count with white cell differential, automated CBC, EDIF, PLATELET Lab Routine Neuroendocrine tumor Expected: 12/28/2021, Expires: 08/27/2022 [facility] Comment on above: Expected: 12/28/2021, Expires: 3 Start: 12-28-2021 End: 08-27-2022 Comprehensive metabolic 2000 panel - Serum or Plasma COMPREHENSIVE METABOLIC PANEL Lab Routine Neuroendocrine tumor Expected: 12/28/2021, Expires: 08/27/2022 [facility] Comment on above: Expected: 12/28/2021, Expires: 3 Start: 12-28-2021 End: 08-27-2022 Lactate dehydrogenase [Enzymatic activity/volume] in Serum or Plasma LACTATE DEHYDROGENASE Lab Routine Neuroendocrine tumor Expected: 12/28/2021, Expires: 08/27/2022 [facility] Comment on above: Expected: 12/28/2021, Expires: 3 Start: 12-28-2021 End: 08-27-2022 PT Skull base to mid-thigh NUC PET NEUROENDOCRINE Imaging Routine 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 Expected: 12/28/2021, Expires: 08/27/2022 [facility] Comment on above: Expected: 12/28/2021, Expires: 3 Start: 11-02-2021 Dual energy X-ray absorptiometry Dexa Bone Density Study [facility] Work Phone: Start: 11-02-2021 DXA Bone [Mass/Area] Bone density [facility] Work Phone: Start: 10-14-2021 Influenza vaccination INFLUENZA VACCINE (#1) [facility] Start: 08-27-2021 End: 08-27-2021 Patient encounter procedure 08/27/2021 Office Visit Oncology Erwin David MD [address] [facility] [address] [place] [address] Division of Medical Oncology Start: 08-13-2021 End: 08-13-2021 Clinical Support Encounter Clinical Lab [facility] Chisholm 1 Start: 08-10-2021 End: 01-29-2022 CHROMOGRANIN A CHROMOGRANIN A Lab Routine Neuroendocrine tumor Expected: 08/10/2021, Expires: 01/29/2022 [facility] Comment on above: Expected: 08/10/2021, Expires: 2 Start: 08-10-2021 End: 01-29-2022 Complete blood count with white cell differential, automated CBC, EDIF, PLATELET Lab Routine Neuroendocrine tumor Expected: 08/10/2021, Expires: 01/29/2022 [facility] Comment on above: Expected: 08/10/2021, Expires: 2 Start: 08-10-2021 End: 01-29-2022 Comprehensive metabolic 2000 panel - Serum or Plasma COMPREHENSIVE METABOLIC PANEL Lab Routine Neuroendocrine tumor Expected: 08/10/2021, Expires: 01/29/2022 [facility] Comment on above: Expected: 08/10/2021, Expires: 2 Start: 08-10-2021 End: 01-29-2022 GASTRIN - NON-STIMULATED GASTRIN - NON-STIMULATED Lab Routine Neuroendocrine tumor Expected: 08/10/2021, Expires: 01/29/2022 [facility] Comment on above: Expected: 08/10/2021, Expires: 2 Start: 08-10-2021 End: 01-29-2022 Lactate dehydrogenase [Enzymatic activity/volume] in Serum or Plasma LACTATE DEHYDROGENASE Lab Routine Neuroendocrine tumor Expected: 08/10/2021, Expires: 01/29/2022 [facility] Comment on above: Expected: 08/10/2021, Expires: 2 Start: 08-10-2021 End: 01-29-2022 Magnetic resonance imaging of abdomen and pelvis with contrast MRI ABDOMEN/PELVIS WITHOUT AND WITH CONTRAST Imaging Routine Neuroendocrine tumor Expected: 08/10/2021, Expires: 01/29/2022 [facility] Comment on above: Expected: 08/10/2021, Expires: 2 Start: 06-29-2021 End: 06-29-2022 CT Pulmonary arteries for pulmonary embolus CT PE STUDY Imaging STAT Neuroendocrine tumor Expected: 06/29/2021, Expires: 06/29/2022 [facility] Comment on above: Expected: 06/29/2021, Expires: 3 Start: 06-29-2021 End: 06-29-2021 Clinical Support Encounter Clinical Lab [facility] Gupta Start: 06-16-2021 End: 06-16-2021 Patient encounter procedure 06/16/2021 Office Visit [facility] Start: 06-09-2021 End: 06-09-2021 Patient encounter procedure Clinical Lab [facility] Chisholm 1 Start: 09-07-2020 COVID-19 VACCINE (3 - Booster for Moderna series) COVID-19 VACCINE (3 - Booster for Moderna series) [facility] Start: 06-05-2020 COVID-19 VACCINE (3 - Booster for Moderna series) COVID-19 VACCINE (3 - Booster for Moderna series) [facility] Start: 2016 RSV VACCINE (1 - 1-dose 75+ series) RSV VACCINE (1 - 1-dose 75+ series) [facility] Start: 06-28-2015 Pneumococcal vaccination [facility] Start: 06-28-2015 Pneumococcal Vaccine: 65+ (2 of 2 - PPSV23 or PCV20) Pneumococcal Vaccine: 65+ (2 of 2 - PPSV23 or PCV20) [facility] Start: 08-22-2014 Pneumococcal vaccination [facility] Start: 08-22-2014 Pneumococcal Vaccine: 65+ (2 of 2 - PPSV23 or PCV20) Pneumococcal Vaccine: 65+ (2 of 2 - PPSV23 or PCV20) [facility] Start: 2006 Pneumococcal vaccination PNEUMOCOCCAL VACCINE SERIES (1 - PCV) [facility] Start: 2006 Pneumococcal Vaccine: 65+ (1 of 1 - PCV) Pneumococcal Vaccine: 65+ (1 of 1 - PCV) [facility] Start: 2006 Screening for osteoporosis Bone Density Screening [facility] Start: 2001 Hepatitis B vaccination HEP B VACCINE (1 of 3 - Risk 3-dose series) [facility] Start: 2001 RSV Vaccine (1 - 1-dose 60+ series) RSV Vaccine (1 - 1-dose 60+ series) [facility] Start: 11-15-1991 Shingrix Vaccine (1 of 2) Shingrix Vaccine (1 of 2) [facility] Start: 11-15-1991 Zoster vaccine hzv live for subcutaneous use ZOSTER (SHINGLES) VACCINE (1 of 2) [facility] Start: 1986 Colonoscopy COLORECTAL CANCER SCREENING DISCUSSION [facility] Start: 1986 Screening for malignant neoplasm of colon COLORECTAL CANCER SCREENING DISCUSSION [facility] Start: 1981 Screening for malignant neoplasm of breast MAMMOGRAM SCREENING DISCUSSION [facility] Start: 1981 Screening mammography MAMMOGRAM SCREENING DISCUSSION [facility] Start: 1962 Screening for malignant neoplasm of cervix CERVICAL CANCER SCREENING DISCUSSION [facility] Start: 1960 Third diphtheria, tetanus and acellular pertussis (DTaP) vaccination TDAP (ADULT) [facility] Start: 1960 Urine microalbumin profile DTaP,Tdap,Td Vaccine (1 - Tdap) [facility] Start: 1960 Zoster vaccine hzv live for subcutaneous use ZOSTER (SHINGLES) VACCINE (1 of 2) [facility] Start: 11-15-1959 Tetanus vaccination TETANUS [facility] Start: 1941 Hepatitis C antibody, confirmatory test HEPATITIS C VIRUS SCREENING [facility] Start: 1941 Screening for osteoporosis [facility] Start: 1941 Tetanus vaccination TETANUS [facility] End: 08-12-2023 Bacteria identified in Blood by Culture [facility] Work Phone: Comment on above: One Time for 1 Occurrences starting 07/15 until 08/12/2023 Cardiac catheterizat ion study INVASIVE CARDIOVASCULAR PROCEDURE Cardiac Cath Routine Shortness of breath Coronary artery calcification 12/15/2023 9:56 AM EDT [facility] Work Phone: Cath plmt l hrt & ar ts w/njx & angio img s&i SCHED CATHETERIZATION HEART CORONARY ANGIOGRAM WITH OR WITHOUT LV ANGIO Shortness of breath Coronary artery calcification [facility] CATH/EP CBC W Auto Different ial panel - Blood [facility] Work Phone: CBC W Auto Different ial panel - Blood [facility] CBC W Auto Different ial panel - Blood [facility] CBC W Auto Different ial panel - Blood [facility] CHROMOGRANIN A CHROMOGRANIN A L ab Routine Neuroendocrine carcinoma metastatic to liver 06/29/2021 9:39 AM EDT [facility] CHROMOGRANIN A CHROMOGRANIN A L ab Routine Neuroendocrine tumor 08/13/2021 11:00 AM EDT [facility] CHROMOGRANIN A CHROMOGRANIN A L ab Routine Neuroendocrine cancer 10/07/2022 12:29 PM EDT [facility] CHROMOGRANIN A CHROMOGRANIN A L ab Routine Neuroendocrine carcinoma metastatic to liver 01/01/2024 10:18 AM EST [facility] Work Phone: CHROMOGRANIN A CHROMOGRANIN A L ab Routine Neuroendocrine carcinoma metastatic to liver 06/07/2024 8:19 AM EDT [facility] CHROMOGRANIN A CHROMOGRANIN A L ab Routine Neuroendocrine tumor Neuroendocrine cancer 09/06/2024 10:02 AM EDT [facility] CHROMOGRANIN A CHROMOGRANIN A L ab Routine Neuroendocrine tumor 11/08/2024 8:58 AM EDT [facility] End: 08-11-2023 CT Abdomen and Pelvis W contrast IV [facility] Comment on above: One Time for 1 Occurrences starting 07/15 until 08/11/2023 End: 09-08-2022 CT Chest WO contrast [facility] Comment on above: 1 Occurrences starting 09/08/2022 until 09/08/2022 End: 03-24-2023 CT Chest WO contrast [facility] Comment on above: 1 Occurrences starting 03/24/2023 until 03/24/2023 End: 01-01-2024 CT Chest WO contrast [facility] Work Phone: Comment on above: 1 Occurrences starting 01/01/2024 until 01/01/2024 GASTRIN - NON-STIMULATED GASTRIN - NON-STIMULATED Lab Routine Neuroendocrine carcinoma metastatic to liver 06/29/2021 9:39 AM EDT [facility] Work Phone: GASTRIN - NON-STIMULATED GASTRIN - NON-STIMULATED Lab Routine Neuroendocrine tumor 08/13/2021 11:00 AM EDT [facility] GASTRIN - NON-STIMULATED GASTRIN - NON-STIMULATED Lab Routine Neuroendocrine cancer 10/07/2022 12:29 PM EDT [facility] GASTRIN - NON-STIMULATED GASTRIN - NON-STIMULATED Lab Routine Neuroendocrine carcinoma metastatic to liver 01/01/2024 10:18 AM EST [facility] GASTRIN - NON-STIMULATED GASTRIN - NON-STIMULATED Lab Routine Neuroendocrine carcinoma metastatic to liver 06/07/2024 8:19 AM EDT [facility] Work Phone: GASTRIN - NON-STIMULATED GASTRIN - NON-STIMULATED Lab Routine Neuroendocrine tumor Neuroendocrine cancer 09/06/2024 10:02 AM EDT [facility] GASTRIN - NON-STIMULATED GASTRIN - NON-STIMULATED Lab Routine Neuroendocrine tumor 11/08/2024 8:58 AM EDT [facility] Work Phone: Gastrin [Mass/volume ] in Serum or Plasma [facility] End: 09-08-2022 Magnetic resonance imaging of abdomen and pelvis with contrast [facility] Comment on above: 1 Occurrences starting 09/08/2022 until 09/08/2022 End: 05-24-2024 MR Cervical spine WO contrast MRI CERVICAL SPINE WO IVCON Radiology Routine Spinal stenosis of cervical region 1 Occurrences starting 04/25/2023 until 05/24/2024 [facility] Work Phone: Comment on above: 1 Occurrences starting 04/25/2023 until 05/24/2024 End: 05-24-2024 MR Lumbar spine WO contrast MRI LUMBAR SPINE WO IVCON Radiology Routine Spinal stenosis of lumbar region with neurogenic claudication 1 Occurrences starting 04/25/2023 until 05/24/2024 [facility] Work Phone: Comment on above: 1 Occurrences starting 04/25/2023 until 05/24/2024 End: 05-24-2024 MR Thoracic spine WO contrast MRI THORACIC SPINE WO IVCON Radiology Routine Pathological fracture, other site, initial encounter for fracture 1 Occurrences starting 04/25/2023 until 05/24/2024 [facility] Work Phone: Comment on above: 1 Occurrences starting 04/25/2023 until 05/24/2024 Patient Education [facility] Work Phone: Patient referral [facility] Work Phone: Procedure [facility] Procedure [facility] End: 06-30-2023 PT Skull base to mid-thigh [facility] Comment on above: 1 Occurrences starting 06/30/2023 until 06/30/2023 End: 06-14-2024 PT Skull base to mid-thigh [facility] Comment on above: 1 Occurrences starting 06/14/2024 until 06/14/2024 Standard ECG [facility] Comment on above: Ordered: 11/01/2023 Standard ECG ECG ECG Routine Other cardiac arrhythmia 12/08/2023 11:24 AM EDT [facility] End: 12-15-2023 Standard ECG ECG ECG STAT One Time for 1 Occurrences starting 12/15/2023 until 12/15/2023 [facility] Work Phone: Comment on above: One Time for 1 Occurrences starting 02/2023 until 12/15/2023 US Unspecified body region US [facility] Imaging Routine Thyroid nodule Ordered: 01/10/2024 [facility] Comment on above: Ordered: 01/10/2024 End: 07-05-2024 XR Lumbar spine AP and Lateral XR LUMBAR LIMITED 2V AP/LAT Radiology Routine Compression fracture of T7 vertebra, initial encounter (HCC) 1 Occurrences starting 06/06/2023 until 07/05/2024 [facility] Comment on above: 1 Occurrences starting 06/06/2023 until 07/05/2024 XR Lumbar spine AP a nd Lateral XR LUMBAR LIMITED 2V AP/LAT Radiology Routine Compression fracture of T7 vertebra, initial encounter (HCC) 08/04/2023 1:30 PM EDT [facility] Work Phone: End: 05-19-2024 XR Thoracic spine AP and Lateral XR THORACIC LIMITED 2V AP/LAT Radiology Routine 1 Occurrences starting 04/20/2023 until 05/19/2024 [facility] Work Phone: Comment on above: 1 Occurrences starting 04/20/2023 until 05/19/2024 XR Thoracic spine AP and Lateral XR THORACIC LIMITED 2V AP/LAT Radiology Routine Compression fracture of T11 vertebra, sequela 04/25/2023 12:04 PM EDT [facility] Work Phone: End: 07-05-2024 XR Thoracic spine AP and Lateral XR THORACIC LIMITED 2V AP/LAT Radiology Routine Compression fracture of T7 vertebra, initial encounter (HCC) 1 Occurrences starting 06/06/2023 until 07/05/2024 [facility] Work Phone: Comment on above: 1 Occurrences starting 06/06/2023 until 07/05/2024 XR Thoracic spine AP and Lateral XR THORACIC LIMITED 2V AP/LAT Radiology Routine Compression fracture of T7 vertebra, initial encounter (HCC) 08/04/2023 1:28 PM EDT [facility] Immunizations Immunization Date Immunization Notes [facility] influenza virus vaccine, unspecified formulation Kaylynn Villanueva RN [facility] 11-11-2022 influenza virus vaccine, unspecified formulation Tawana Deluca MD Work Phone: [facility] 12-29-2021 influenza virus vaccine, unspecified formulation Britany Jane PAWEL Work Phone: [facility] 12-07-2020 influenza, injectabl e, quadrivalent, preservative free Dr. Blanca Cruz Work Phone: [facility] 12-07-2020 influenza, seasonal, injectable Dr. Blanca Cruz Work Phone: [facility] 12-07-2020 influenza virus vaccine, unspecified formulation Kenya Solorzano RN [facility] 04-10-2020 COVID-19 vaccine, mR NA, Moderna 0.5 ML Juan A Alvarenga MD, PhD, MPH Work Phone: [facility] 03-13-2020 COVID-19 vaccine, mR NA, Moderna 0.5 ML Juan A Alvarenga MD, PhD, MPH Work Phone: [facility] 11-12-2019 influenza, injectabl e, quadrivalent, preservative free Dr. Blanca Cruz Work Phone: [facility] 11-12-2019 influenza, seasonal, injectable Dr. Blanca Cruz Work Phone: [facility] 11-08-2018 influenza, injectabl e, quadrivalent, preservative free Dr. Blanca Cruz Work Phone: [facility] 11-08-2018 influenza, seasonal, injectable Dr. Blanca Cruz Work Phone: [facility] 11-27-2017 influenza, injectabl e, quadrivalent, preservative free Dr. Blanca Cruz Work Phone: [facility] 11-27-2017 influenza, seasonal, injectable Dr. Blanca Cruz Work Phone: [facility] 11-30-2016 influenza, injectabl e, quadrivalent, preservative free Dr. Blanca Cruz Work Phone: [facility] 11-30-2016 influenza, seasonal, injectable Dr. Blanca Cruz Work Phone: [facility] 11-12-2015 influenza, injectabl e, quadrivalent, preservative free Dr. Blanca Cruz Work Phone: [facility] 11-12-2015 influenza, seasonal, injectable Dr. Blanca Cruz Work Phone: [facility] 11-17-2014 influenza, injectabl e, quadrivalent, preservative free Dr. Blanca Cruz Work Phone: [facility] 11-17-2014 influenza, seasonal, injectable Dr. Blanca Cruz Work Phone: [facility] 12-04-2013 influenza, injectabl e, quadrivalent, preservative free Dr. Blanca Cruz Work Phone: [facility] 12-04-2013 influenza, seasonal, injectable Dr. Blanca Cruz Work Phone: [facility] Payers Date Payer Category Payer Self-pay [id number] 2020 Managed Care (unspecified) MEDICARE SUPPLEMENT [id number] 2020 Unknown [id number] [id number]. [id number] 2020 Unknown [id number] 2006 Medicare [id number]. [id number]. [id number] 2006 Medicare [id number] 1941 Unknown [id number] 2.16.840.1.319246.3.579.2. 903 1941 Unknown [id number] 2.16.840.1.587885.3.579.2. 594 1941 Unknown [id number] 2.16.840.1.204965.3.579.2. 594 1941 Unknown [id number] 2.16.840.1.533118.3.579.2. 594 1941 Unknown [id number] 2.16.840.1.810381.3.579.2. 594 1941 Unknown [id number] 2.16.840.1.859640.3.579.2. 594 1941 Unknown [id number] 2.16.840.1.140198.3.579.2. 594 1941 Unknown [id number] 2.16.840.1.284735.3.579.2. 594 1941 Unknown [id number] 2.16.840.1.218697.3.579.2. 594 1941 Unknown [id number] 2.16.840.1.820844.3.579.2. 594 1941 Unknown [id number] 2.16.840.1.826283.3.579.2. 594 1941 Unknown [id number] 2.16.840.1.820980.3.579.2. 594 1941 Unknown [id number] 2.16.840.1.319622.3.579.2. 594 1941 Unknown [id number] 2.16.840.1.828461.3.579.2. 594 1941 Unknown [id number] 2.16.840.1.952979.3.579.2. 594 1941 Unknown [id number] 2.16.840.1.330441.3.579.2. 594 1941 Unknown [id number] 2.16.840.1.478702.3.579.2. 594 1941 Unknown [id number] 2.16.840.1.571161.3.579.2. 594 1941 Unknown [id number] 2.16.840.1.872996.3.579.2. 594 1941 Unknown [id number] 2.16.840.1.506325.3.579.2. 594 1941 Unknown [id number] 2.16.840.1.615144.3.579.2. 594 1941 Unknown [id number] 2.16.840.1.741923.3.579.2. 594 1941 Unknown [id number] 2.16.840.1.439210.3.579.2. 594 1941 Unknown [id number] 2.16.840.1.268096.3.579.2. 594 1941 Unknown [id number] 2.16.840.1.010721.3.579.2. 594 1941 Unknown [id number] 2.16.840.1.062522.3.579.2. 594 1941 Unknown [id number] 2.16.840.1.977470.3.579.2. 594 1941 Unknown [id number] 2.16.840.1.989561.3.579.2. 594 Unknown [id number] Unknown [id number] 2.16.840.1.839514.3.579.2. 462 Unknown [id number] 2.16.840.1.198389.3.579.2. 462 Unknown [id number] 2.16.840.1.310238.3.579.2. 462 Unknown [id number] 2.16.840.1.748991.3.579.2. 462 Unknown [id number] 2.16.840.1.985184.3.579.2. 462 Unknown [id number] 2.16.840.1.137631.3.579.2. 462 Unknown [id number] 2.16.840.1.775855.3.579.2. 462 Unknown [id number] 2.16.840.1.971411.3.579.2. 462 Unknown [id number] 2.16.840.1.123069.3.579.2. 462 Unknown [id number] 2.16.840.1.175048.3.579.2. 462 Unknown [id number] 2.16.840.1.849372.3.579.2. 462 Unknown [id number] 2.16840.1.020968.3.579.2. 462 Unknown [id number] 2.840.1.649245.3.579.2. 462 Social History Date Type Detail Facility Start: 12-30-2020 End: 12-08-2023 Tobacco smoking status NHIS Never smoked tobacco [facility] Start: 12-30-2020 End: 12-08-2023 Tobacco use and exposure Smokeless tobacco non-user [facility] Start: 06-01-2021 End: 11-08-2024 Alcohol intake Ex-drinker (finding) [facility] Start: 1940 Sex Assigned At Not on file [facility] Start: 05-21-2021 End: 05-31-2021 Exposure to SARS-CoV-2 (event) Not sure [facility] Start: 06-16-2021 End: 01-10-2023 Tobacco smoking status NHIS Unknown if ever smoked [facility] Start: 02-27-2018 Non-smoker [facility] Start: 1940 Sex Assigned At Female [facility] Start: 01-24-2022 End: 02-18-2022 Exposure to SARS-CoV-2 (event) Unable to assess [facility] Start: 08-26-2022 End: 12-13-2024 History of Social function [facility] Start: 08-26-2022 End: 12-13-2024 Tobacco use panel [facility] Adolescent depressio n screening assessment 0 [facility] Start: 04-25-2023 End: 06-06-2023 Alcohol intake Lifetime non-drinker (finding) [facility] Has the [employer], or [employer] threatened to shut off services in your home in past 12Mo No [facility] How often to you hav e a drink containing alcohol? Never [facility] (I/We) worried maximus er (my/our) food would run out before (I/we) got money to buy more. Sometimes true [facility] Start: 01-04-2024 Gender identity Identifies as female gender (finding) [facility] Start: 01-04-2024 Sexual orientation Heterosexual (ashwin dai) [facility] Start: 10-21-2020 Sex Female (finding) [facility] Medical Equipment Procedure Code Equipment Code Equipment Origin al Text Equipment Identifier Dates ()[id number] , [id number], [id number] [facility] Start: 03-22-2021 Comment on above: Description: Implant time-out completed by intra-procedural staff including this RN, licensed veterinary technician, and performing physician. The following was completed. RN reads out loud implant type/size/ expiration date, and verbalizes location. Holds package up to tech to visually verify implant details. Tech reads back package details MD verifies verbally correct implant Time-out was completed for each coil during embolization, if applicable. 23.5 DIOPTER PRELOADED LENS FDA Start: 01-20-2017 23.5 DIOPTER PRELOADED LENS FDA Start: 01-20-2017 23.5 DIOPTER PRELOADED LENS FDA Start: 01-20-2017 23.5 DIOPTER PRELOADED LENS FDA Start: 01-20-2017 23.5 DIOPTER PRELOADED LENS FDA Start: 01-20-2017 23.5 DIOPTER PRELOADED LENS FDA Start: 01-20-2017 23.5 DIOPTER PRELOADED LENS FDA Start: 01-20-2017 23.5 DIOPTER PRELOADED LENS FDA Start: 01-20-2017 Embozene [id number] Start: 03-22-2021 Comment on above: Description: Implant time-out completed by intra-procedural staff including this RN, licensed veterinary technician, and performing physician. The following was completed. RN reads out loud implant type/size/ expiration date, and verbalizes location. Holds package up to tech to visually verify implant details. Tech reads back package details verifies verbally correct implant Time-out was completed for each coil during embolization, if applicable. 100um Sphere Embolizat ion [place] Embozene 100um Syringe 2ml - [id number] FDA Start: 05-31-2021 Comment on above: Description: Implant time-out completed by intra-procedural staff including this RN, licensed veterinary technician, and performing physician. The following was completed. RN reads out loud implant type/size/ expiration date, and verbalizes location. Holds package up to tech to visually verify implant details. Tech reads back package details verifies verbally correct implant Time-out was completed for each coil during embolization, if applicable. 23.5 DIOPTER PRELOADED LENS FDA Start: 01-20-2017 23.5 DIOPTER PRELOADED LENS FDA Start: 01-20-2017 Device Closure Perclose Prostyle Suture Mediate Repair - [id number] Start: 12-15-2023 23.5 DIOPTER PRELOADED LENS FDA Start: 01-20-2017 Functional Status Date Assessment Result Facility 08-12-2023 Are you deaf, or do you have serious difficulty hearing No 08/12/2023 4:00 AM EDKarin Tapia, DOUG No [facility] 08-12-2023 Are you blind, or do you have serious difficulty seeing, even when wearing glasses No 08/12/2023 4:00 AM Karin Chavez, DOUG No [facility] 08-12-2023 Do you have serious difficulty walking or climbing stairs No 08/12/2023 4:00 AM EDKarin Tapia, DOUG No [facility] 08-12-2023 Do you have difficul ty dressing or bathing No 08/12/2023 4:00 AM EDKarin Tapia, DOUG No [facility] 08-12-2023 Because of a physica l, mental, or emotional condition, do you have difficulty doing errands alone such as visiting a physician's office or shopping No 08/12/2023 4:00 AM EDKarin Tapia, DOUG No [facility] Mental Status Date Assessment Result Facility 06-11-2024 Cognitive function Level Of Cons ciousness Awake;Alert;Appropriate;Fol lows Commands [facility] Work Phone: 08-12-2023 Because of a physica l, mental, or emotional condition, do you have serious difficulty concentrating, remembering, or making decisions No 08/12/2023 4:00 AM Karin Chavez RN No [facility] 12-15-2022 Cognitive function Awake;Alert;A ppropriate;Fol lows Commands [facility] Work Phone: 11-17-2022 Cognitive function Arousable To Voice/Nam e [facility] Work Phone: 12-22-2020 Cognitive function Voice/Name [facility] Work Phone: Clinical Notes 05-31-2021 to 12-13-2024 Lisa Mora RN - 12/13/2024 7:30 AM EDTAddendum Note - AMAIRANI Hoyt - 11/22/2024 2:36 PM EDTAddendum Note - AMAIRANI Hoyt - 11/22/2024 2:36 PM EDTPatient InstructionsAttachments Note Date & Type Note Facility 12-13-2024 History of Present illness Narrative Mary Jenkins arrived to [facility] at 1100, accompanied by daughter, for Cycle 3 today. Oriented to room and unit. Plan of care reviewed. Pharmacy, Nuclear Medicine and Radiation Safety notified. Do you experience any issues with bladder or bowel control? Pt has stress incontinence and diarrhea. Any problems with mobility or urgency getting to the bathroom? Pt wears a pad for stress incontinence. > If yes to either, please notify Radiation Safety. Notified NAME@ Brigitte from Radiation Safety @ already in unit Aloxi given @ 1114 > If, other anti medic given n/a Amino Acid infusion started @ 1150 Start of infusion @ 1230 End of infusion completed @ 1240. PIV removed per nuclear medicine. Amino Acid infusion re-timed for 3 additional hours. Amino acids complete, at 1547 flushed line. PIV w positive blood flash, dc PIV. Ambulated to the bathroom. Mary Jenkins tolerated Lutetium well, no reaction noted. Discharged with AVS, to the lobby. Pt to return on 02/17/2025 for c4. documented in this encounter [facility] 11-22-2024 Note Addended by: Maria G POSEY on: 11/22/2024 02:36 PM Modules accepted: Orders [facility] 11-22-2024 Miscellaneous Notes Addended by: RAHUL POSEY on: 11/22/2024 02:36 PM Modules accepted: Orders Return phone call placed to pt to inquire what meds are needed and to triage diarrhea. Pt states she has diarrhea every 1-2 days. States she has typically 3 episodes per day as she take cholestyramine and lomotil which is effective in stopping. Would like refills of both. Informed pt labs were reviewed and ok to proceed w/PRRT 12/13. Instructed to call with any bleeding or bruising as repeat labs will be needed. Pt verbalized understanding to all. Patient called in stating she need diarrhea medication called in to her pharmacy. documented in this encounter [facility] 11-22-2024 Telephone encounter Note Return phone call placed to pt to inquire what meds are needed and to triage diarrhea. Pt states she has diarrhea every 1-2 days. States she has typically 3 episodes per day as she take cholestyramine and lomotil which is effective in stopping. Would like refills of both. Informed pt labs were reviewed and ok to proceed w/PRRT 12/13. Instructed to call with any bleeding or bruising as repeat labs will be needed. Pt verbalized understanding to all. [facility] 11-21-2024 Telephone encounter Note Patient called in stating she need diarrhea medication called in to her pharmacy. [facility] 11-13-2024 Telephone encounter Note 11/13/2024 11:06 AM RN called shahrzad to make her aware that her labs do not provide the Ok to treat according to our TRUCK LEASING MANAGER Otilia. Patient to have weekly lab work for the next month and we need to reschedule PRRT to 4 weeks from now. Patient verbalizes understanding. New PRRT dates to be provided. RN faxed lab orders to the following location and to patients home address on file. [facility] lab (P) [phone] (F) [phone] RN placed a reminder for Wednesdays x4 occurrences. -- Clint Mondragon RN [facility] 11-13-2024 Miscellaneous Notes 11/13/2024 11:06 AM RN called shahrzad to make her aware that her labs do not provide the Ok to treat according to our TRUCK LEASING MANAGER Otilia. Patient to have weekly lab work for the next month and we need to reschedule PRRT to 4 weeks from now. Patient verbalizes understanding. New PRRT dates to be provided. RN faxed lab orders to the following location and to patients home address on file. [facility] lab (P) [phone] (F) [phone] RN placed a reminder for Wednesdays x4 occurrences. -- Clint Mondragon RN Images from the original note were not included. 11/13/2024 8:53 AM -- Clint Mondragon RN 11/12/2024 4:22 PM No labs received at this time. -- Clint Mondragon RN 11/12/2024 11:34 AM RN called patient to see if she had labs drawn today. Per patient statement, she is going to get labs drawn today at [facility] later today. ++++ Awaiting labs for OK TO TREAT for 11/15/2024 PRRT ++++ -- Clint Mondragon RN ----- Message from DOUG Marks sent at 11/08/2024 2:09 PM EDT ----- Regarding: labs Patient was seen in Dr. David's clinic 11/08 Scheduled for Cycle 3 PRRT on this Wednesday 11/15---- NEEDS OKAY TO TREAT Labs on 11/08- thrombocytopenia. Ordered pt to re-check CBC locally on 11/12. Please follow up on lab results, forward to provider to review and advise on what to do with Cycle 3. Okay to treat is needed and patient NEEDS CALLED with updates. Thank you documented in this encounter [facility] 11-13-2024 Telephone encounter Note Images from the original note were not included. 11/13/2024 8:53 AM -- Clint Mondragon RN [facility] 11-12-2024 Telephone encounter Note 11/12/2024 4:22 PM No labs received at this time. -- Clint Mondragon RN [facility] 11-12-2024 Telephone encounter Note 11/12/2024 11:34 AM RN called patient to see if she had labs drawn today. Per patient statement, she is going to get labs drawn today at [facility] later today. ++++ Awaiting labs for OK TO TREAT for 11/15/2024 PRRT ++++ -- Clint Mondragon RN [facility] 11-12-2024 Telephone encounter Note ----- Message from DOUG Marks sent at 11/08/2024 2:09 PM EDT ----- Regarding: labs Patient was seen in Dr. David's clinic 11/08 Scheduled for Cycle 3 PRRT on this Wednesday 11/15---- NEEDS OKAY TO TREAT Labs on 11/08- thrombocytopenia. Ordered pt to re-check CBC locally on 11/12. Please follow up on lab results, forward to provider to review and advise on what to do with Cycle 3. Okay to treat is needed and patient NEEDS CALLED with updates. Thank you [facility] 11-08-2024 History of Present illness Narrative Images from the original note were not included. HISTORY OF PRESENT ILLNESS: Mary Jenkins is a 83 y.o. female who is diagnosed with metastatic neuroendocrine tumor. She comes here today for evaluation regarding diagnosis. She was in usual state of health until: 2014: Resection of parathyroid adenomas August 2020: Acute onset of abdominal pain and diarrhea. She was treated for diverticulitis. Diarrhea improved, but continued with RUQ pain. September 25, 2020: Liver core biopsy: [facility] read: A. Liver mass, CT-guided core biopsy: Metastatic well-differentiated neuroendocrine tumor, G2 Immunohistochemical stain performed at outside hospital TTF 1 negative S100 negative CK7 negative CK20 negative Napsin a negative CD117 negative P 40 negative Pancytokeratin positive NSE positive CD56 positive Synaptophysin positive Chromogranin positive Henry 2 positive CDX2 positive CK8 positive Ki-67: 6% Comment: The immunohistochemical profile suggests a gastrointestinal primary. Clinical correlation is recommended. 10/13/2020: FDG PET: Increased FDG distrubution noted in the region of the proximal ascending colong. Liver does not uptake FDG. 10/2020: Sandostatin q 28 days 12/29/2020: MRI A/P: IMPRESSION: 1. Probable mass involving the distal/terminal ileum which may represent the primary site of the known neuroendocrine tumor. No upstream bowel distention. No mesenteric masses. 2. Multiple lesions within the liver consistent with metastatic disease. Dominant lesion in posterior left lobe. 3. No adenopathy in the abdomen or pelvis. 4. Status post hysterectomy and cholecystectomy. 03/08/2021: laparoscopic right colectomy: A. Right colon and terminal ileum, laparoscopic right hemicolectomy: Well-differentiated neuroendocrine tumor, grade 1,involving the terminal ileum, see synoptic report Surgical margins are negative for tumor Tumor is panmural and involves the serosa Extensive perineural invasion 20 benign lymph nodes (0/20) Immunohistochemical stains for chromogranin and synaptophysin are positive. Manual quantitative immunohistochemistry for Ki-67 is 0%. Zero mitoses were seen in 2 mm2. 03/22/21- left hepatic lobe TAE by Dr. Rush 05/31/2021: Right hepatic lobe TAE 06/16/2021: Venous doppler: +acute DVT of right tibioperoneal trunk, peroneal, soleus veins. 06/19/2021 CT C/A/P multiple lesions of decreased attenuation within the liver worrisome for metastatic disease including a 7 cm lesion within the posterior segment the right lobe of the liver. There is diffuse atherosclerotic calcification of the abdominal aorta, without a demonstrated aneurysm. 08/13/2021 MRI A/P IMPRESSION: 1. Status post right hemicolectomy involving the previously described mass within the distal/terminal ileum, compatible with patient's known history of neuroendocrine tumor. No evidence of recurrence within the resection bed. No discrete mesenteric masses. 2. Status post interval transarterial bland embolization of lesions in segment 2/3 which has decreased in size (now measuring 3.0 x 2.4 cm, previously 4.6 x 4.1 cm.) however demonstrates persistent peripheral arterial phase enhancement, suggestive of viable disease. 3. Status post interval transarterial bland embolization lesion in segment 7. No definite abnormal enhancement is identified. Interval development of likely posttreatment confluent necrotic collections in this region. 4. Additional previously indexed arterially enhancing lesions in segment 4A/5 are not significantly changed. 5. Focus of intrinsic T1 hyperintensity within the proximal common hepatic is suggestive of posttreatment hemobilia. No significant proximal intrahepatic biliary ductal dilation. Mild persistent prominence of the common bile duct could relate to postcholecystectomy ectasia. INTERVAL HISTORY: Chief Complaint Patient presents with Follow-up S/p PRRT C2 on 09/20. Reports hair loss with last PRRT treatment Patient returns today for follow up. Last seen on 09/06/24. Completed Cycle 2 PRRT on 09/20/24. Since then, she reports that she tolerated PRRT well. She did have some mild fatigue the first week afterwards, but this has since improved. She is feeling back to baseline today. She reports good appetite and denies nausea/vomiting/constipation. Reports that diarrhea has improved significantly. She occasionally takes cholestyramine as needed for diarrhea. Otherwise, she denies carcinoid symptoms, including flushing palpitations/lightheadedness/wheez ing. She reports no new concerns today. ECOG PS: 1 REVIEW OF SYSTEMS: A review of systems was performed with the patient at today's patient and is negative except for those items mentioned in the interval history and those items mentioned below as well as in the nursing documentation review of systems. Fatigue: Fatigue relieved by rest Nausea: Absent or within normal limits Vomiting: Absent or within normal limits Anorexia: Absent or within normal limits Diarrhea: Absent or within normal limits Constipation: Absent or within normal limits Peripheral Motor Neuropathy: Absent or within normal limits Depression: Absent or within normal limits Dyspnea: Shortness of breath with moderate exertion Rash Maculo-Papular: Absent or within normal limits Pain: Absent or within normal limits Fever: Absent or within normal limits Localized Edema: Absent or within normal limits Allergies and Medications: Reviewed, as per chart Past Medical and Surgical History: Reviewed, as per chart Social History: As per chart Family History: As per chart Daughter has thyroid cancer PHYSICAL EXAMINATION: The patient is well built, well nourished, and in no acute distress. Patient is alert, oriented to person, place and time. BP 132/60 (BP Location: Left arm, BP Position: Sitting) Pulse 80 Temp 97.2 F (36.2 C) (Infrared) Resp 16 Ht 1.524 m (5') Wt 63.5 kg (140 lb) SpO2 97% BMI 27.34 kg/m Smoking Status Never HEENT: Head atraumatic, normocephalic. Gross vision intact. Eyes are nonicteric. Neck: supple, symmetrical Lungs: Clear to auscultation bilaterally. No rales or wheezing. Heart: Regular heart rate and rhythm. Abdomen: Soft, nontender, non distended, without palpable masses. Normoactive bowel sounds present. No liver or mass are palpable. Extremities: No edema Skin: Warm and dry with good skin turgor. No rash. Lymph nodes: No lymphadenopathy noted in left or right inguinal area Neurologic: No focal deficits, grossly intact. IMAGING STUDIES: No new imaging completed since last office visit. LABS: CMP Lab Results Component Value Date SODIUM 135 11/08/2024 POTASSIUM 3.4 (L) 11/08/2024 CHLORIDE 98 11/08/2024 CO2 29 11/08/2024 BUN 19 11/08/2024 CREATSERUM 1.05 11/08/2024 GLUCOSE 100 11/08/2024 CALCIUM 9.8 11/08/2024 ALT 12 11/08/2024 AST 19 11/08/2024 ALKPHOS 136 (H) 11/08/2024 BILITOTAL 0.7 11/08/2024 BILIDIRECT 0.2 12/08/2023 ALBUMIN 4.4 11/08/2024 CBC Lab Results Component Value Date WBC 3.95 (L) 11/08/2024 HGB 10.8 (L) 11/08/2024 HCT 31.0 (L) 11/08/2024 PLATELET 95 (L) 11/08/2024 MCV 90.1 11/08/2024 LDH Lab Results Component Value Date LDH 139 11/08/2024 TUMOR MARKERS Lab Results Component Value Date TSH 1.408 10/07/2022 CALCITONIN <2.0 12/30/2020 PANCPOLYP 72 12/30/2020 GASTRIN 1534 (H) 09/06/2024 GASTRIN 1315 (H) 06/07/2024 GASTRIN 671 (H) 01/01/2024 GASTRIN 281 (H) 06/30/2023 GASTRIN 400 (H) 03/24/2023 GLUCAGON 26 12/30/2020 CHROMOGRANA 492 (H) 09/06/2024 CHROMOGRANA 317 (H) 06/07/2024 CHROMOGRANA 364 (H) 01/01/2024 CHROMOGRANA 47 06/30/2023 CHROMOGRANA 73 03/24/2023 Lab results have been reviewed and discussed with the patient. IMPRESSION & PLAN: Diagnosis: WD NET Ki-67 6% of primary likely ileum (FDG PET mesenteric uptake SUV 4.2) Date of Treatment: 10/2020: Sandostatin started. Symptom [place] at presentation: Diarrhea which improved on sandostatin. 03/08/2021: laparoscopic right hemicolectomy: A. Right colon and terminal ileum, laparoscopic right hemicolectomy: Well-differentiated neuroendocrine tumor, grade 1,involving the terminal ileum, see synoptic report Surgical margins are negative for tumor Tumor is panmural and involves the serosa Extensive perineural invasion 20 benign lymph nodes (0/20) Immunohistochemical stains for chromogranin and synaptophysin are positive. Manual quantitative immunohistochemistry for Ki-67 is 0%. Zero mitoses were seen in 2 mm2. 03/22/21- left hepatic TAE by Dr. Rush. 05/31/2021: Right hepatic. Tolerated well. 08/10/2023: Discontinued Sandostatin due to elevated LFTs, total bilirubin max of 8.6 07/26/2024: PRRT C1D1 Assessments Last Labs: -Stable mild hypokalemia, reviewed and provided high potassium food list and controlling diarrhea with medications to help, she is also on oral potassium -New thrombocytopenia. Platelets=95K. No signs/symptoms of bleeding. Last Scans: Scans not completed prior to office visit today (no show). Discussed with Dr David and will hold off on imaging until after Cycle 4 of PRRT. Plan for Today Patient doing very well today. Tolerated PRRT 2 well with only mild fatigue x 1 week Lab work today showing new thrombocytopenia, platelets=[address] David and will need to repeat lab work next week, around Monday11/12/24 prior to clearing for Cycle 3 PRRT Diarrhea: Encouraged continued cholestyramine and lomotil use to help with symptom management RTC: Repeat lab work on Monday11/12/24 due to thrombocytopenia. Pending results, will need Ok to Treat for Cycle 3 PRRT Options for the Future: Afinitor, cabozantinib, or repeat TAE Other Diagnosis and Plans #DVT - started on 2.5 mg eliquis BID. Experienced RLE edema and pain which has now subsided. #HTN: She is working with her PCP on this issue. Normotensive #Diarrhea: Worsened 06/2024 - Cholestyramine and Lomotil prescribed - Education on the importance of using the medications for management of diarrhea - Cholecystectomy Orders Placed This Encounter CBC, EDIF, PLATELET COMPREHENSIVE METABOLIC PANEL LACTATE DEHYDROGENASE CHROMOGRANIN A GASTRIN - NON-STIMULATED The patient had a number of questions which were answered to the best of our ability and to patient's apparent satisfaction. The patient is agreeable with the plan of care. Of course, in the interim, patient is instructed to contact us with any questions, concerns, or any new or worsening symptoms. AMAIRANI Estes [facility] and José Santoyo [facility] I have discussed, and formulated the above treatment plan with Dr. David who agrees with the plan. documented in this encounter [facility] 11-08-2024 History of Present illness Narrative Images from the original note were not included. HISTORY OF PRESENT ILLNESS: Mary Jenkins is a 83 y.o. female who is diagnosed with metastatic neuroendocrine tumor. She comes here today for evaluation regarding diagnosis. She was in usual state of health until: 2015: Resection of parathyroid adenomas August 2020: Acute onset of abdominal pain and diarrhea. She was treated for diverticulitis. Diarrhea improved, but continued with RUQ pain. September 25, 2020: Liver core biopsy: [facility] read: A. Liver mass, CT-guided core biopsy: Metastatic well-differentiated neuroendocrine tumor, G2 Immunohistochemical stain performed at outside hospital TTF 1 negative S100 negative CK7 negative CK20 negative Napsin a negative CD117 negative P 40 negative Pancytokeratin positive NSE positive CD56 positive Synaptophysin positive Chromogranin positive Henry 2 positive CDX2 positive CK8 positive Ki-67: 6% Comment: The immunohistochemical profile suggests a gastrointestinal primary. Clinical correlation is recommended. 10/13/2020: FDG PET: Increased FDG distrubution noted in the region of the proximal ascending colong. Liver does not uptake FDG. 10/2020: Sandostatin q 28 days 12/29/2020: MRI A/P: IMPRESSION: 1. Probable mass involving the distal/terminal ileum which may represent the primary site of the known neuroendocrine tumor. No upstream bowel distention. No mesenteric masses. 2. Multiple lesions within the liver consistent with metastatic disease. Dominant lesion in posterior left lobe. 3. No adenopathy in the abdomen or pelvis. 4. Status post hysterectomy and cholecystectomy. 03/08/2021: laparoscopic right colectomy: A. Right colon and terminal ileum, laparoscopic right hemicolectomy: Well-differentiated neuroendocrine tumor, grade 1,involving the terminal ileum, see synoptic report Surgical margins are negative for tumor Tumor is panmural and involves the serosa Extensive perineural invasion 20 benign lymph nodes (0/20) Immunohistochemical stains for chromogranin and synaptophysin are positive. Manual quantitative immunohistochemistry for Ki-67 is 0%. Zero mitoses were seen in 2 mm2. 03/22/21- left hepatic lobe TAE by Dr. Rush 05/31/2021: Right hepatic lobe TAE 06/16/2021: Venous doppler: +acute DVT of right tibioperoneal trunk, peroneal, soleus veins. 06/19/2021 CT C/A/P multiple lesions of decreased attenuation within the liver worrisome for metastatic disease including a 7 cm lesion within the posterior segment the right lobe of the liver. There is diffuse atherosclerotic calcification of the abdominal aorta, without a demonstrated aneurysm. 08/13/2021 MRI A/P IMPRESSION: 1. Status post right hemicolectomy involving the previously described mass within the distal/terminal ileum, compatible with patient's known history of neuroendocrine tumor. No evidence of recurrence within the resection bed. No discrete mesenteric masses. 2. Status post interval transarterial bland embolization of lesions in segment 2/3 which has decreased in size (now measuring 3.0 x 2.4 cm, previously 4.6 x 4.1 cm.) however demonstrates persistent peripheral arterial phase enhancement, suggestive of viable disease. 3. Status post interval transarterial bland embolization lesion in segment 7. No definite abnormal enhancement is identified. Interval development of likely posttreatment confluent necrotic collections in this region. 4. Additional previously indexed arterially enhancing lesions in segment 4A/5 are not significantly changed. 5. Focus of intrinsic T1 hyperintensity within the proximal common hepatic is suggestive of posttreatment hemobilia. No significant proximal intrahepatic biliary ductal dilation. Mild persistent prominence of the common bile duct could relate to postcholecystectomy ectasia. INTERVAL HISTORY: Chief Complaint Patient presents with Follow-up S/p PRRT C2 on 09/20. Reports hair loss with last PRRT treatment Patient returns today for follow up. Last seen on 09/06/24. Completed Cycle 2 PRRT on 09/20/24. Since then, she reports that she tolerated PRRT well. She did have some mild fatigue the first week afterwards, but this has since improved. She is feeling back to baseline today. She reports good appetite and denies nausea/vomiting/constipation. Reports that diarrhea has improved significantly. She occasionally takes cholestyramine as needed for diarrhea. Otherwise, she denies carcinoid symptoms, including flushing palpitations/lightheadedness/wheez ing. She reports no new concerns today. ECOG PS: 1 REVIEW OF SYSTEMS: A review of systems was performed with the patient at today's patient and is negative except for those items mentioned in the interval history and those items mentioned below as well as in the nursing documentation review of systems. Fatigue: Fatigue relieved by rest Nausea: Absent or within normal limits Vomiting: Absent or within normal limits Anorexia: Absent or within normal limits Diarrhea: Absent or within normal limits Constipation: Absent or within normal limits Peripheral Motor Neuropathy: Absent or within normal limits Depression: Absent or within normal limits Dyspnea: Shortness of breath with moderate exertion Rash Maculo-Papular: Absent or within normal limits Pain: Absent or within normal limits Fever: Absent or within normal limits Localized Edema: Absent or within normal limits Allergies and Medications: Reviewed, as per chart Past Medical and Surgical History: Reviewed, as per chart Social History: As per chart Family History: As per chart Daughter has thyroid cancer PHYSICAL EXAMINATION: The patient is well built, well nourished, and in no acute distress. Patient is alert, oriented to person, place and time. BP 132/60 (BP Location: Left arm, BP Position: Sitting) Pulse 80 Temp 97.2 F (36.2 C) (Infrared) Resp 16 Ht 1.524 m (5') Wt 63.5 kg (140 lb) SpO2 97% BMI 27.34 kg/m Smoking Status Never HEENT: Head atraumatic, normocephalic. Gross vision intact. Eyes are nonicteric. Neck: supple, symmetrical Lungs: Clear to auscultation bilaterally. No rales or wheezing. Heart: Regular heart rate and rhythm. Abdomen: Soft, nontender, non distended, without palpable masses. Normoactive bowel sounds present. No liver or mass are palpable. Extremities: No edema Skin: Warm and dry with good skin turgor. No rash. Lymph nodes: No lymphadenopathy noted in left or right inguinal area Neurologic: No focal deficits, grossly intact. IMAGING STUDIES: No new imaging completed since last office visit. LABS: CMP Lab Results Component Value Date SODIUM 135 11/08/2024 POTASSIUM 3.4 (L) 11/08/2024 CHLORIDE 98 11/08/2024 CO2 29 11/08/2024 BUN 19 11/08/2024 CREATSERUM 1.05 11/08/2024 GLUCOSE 100 11/08/2024 CALCIUM 9.8 11/08/2024 ALT 12 11/08/2024 AST 19 11/08/2024 ALKPHOS 136 (H) 11/08/2024 BILITOTAL 0.7 11/08/2024 BILIDIRECT 0.2 12/08/2023 ALBUMIN 4.4 11/08/2024 CBC Lab Results Component Value Date WBC 3.95 (L) 11/08/2024 HGB 10.8 (L) 11/08/2024 HCT 31.0 (L) 11/08/2024 PLATELET 95 (L) 11/08/2024 MCV 90.1 11/08/2024 LDH Lab Results Component Value Date LDH 139 11/08/2024 TUMOR MARKERS Lab Results Component Value Date TSH 1.408 10/07/2022 CALCITONIN <2.0 12/30/2020 PANCPOLYP 72 12/30/2020 GASTRIN 1534 (H) 09/06/2024 GASTRIN 1315 (H) 06/07/2024 GASTRIN 671 (H) 01/01/2024 GASTRIN 281 (H) 06/30/2023 GASTRIN 400 (H) 03/24/2023 GLUCAGON 26 12/30/2020 CHROMOGRANA 492 (H) 09/06/2024 CHROMOGRANA 317 (H) 06/07/2024 CHROMOGRANA 364 (H) 01/01/2024 CHROMOGRANA 47 06/30/2023 CHROMOGRANA 73 03/24/2023 Lab results have been reviewed and discussed with the patient. IMPRESSION & PLAN: Diagnosis: WD NET Ki-67 6% of primary likely ileum (FDG PET mesenteric uptake SUV 4.2) Date of Treatment: 10/2020: Sandostatin started. Symptom [place] at presentation: Diarrhea which improved on sandostatin. 03/08/2021: laparoscopic right hemicolectomy: A. Right colon and terminal ileum, laparoscopic right hemicolectomy: Well-differentiated neuroendocrine tumor, grade 1,involving the terminal ileum, see synoptic report Surgical margins are negative for tumor Tumor is panmural and involves the serosa Extensive perineural invasion 20 benign lymph nodes (0/20) Immunohistochemical stains for chromogranin and synaptophysin are positive. Manual quantitative immunohistochemistry for Ki-67 is 0%. Zero mitoses were seen in 2 mm2. 03/22/21- left hepatic TAE by Dr. Rush. 05/31/2021: Right hepatic. Tolerated well. 08/10/2023: Discontinued Sandostatin due to elevated LFTs, total bilirubin max of 8.6 07/26/2024: PRRT C1D1 Assessments Last Labs: -Stable mild hypokalemia, reviewed and provided high potassium food list and controlling diarrhea with medications to help, she is also on oral potassium -New thrombocytopenia. Platelets=95K. No signs/symptoms of bleeding. Last Scans: Scans not completed prior to office visit today (no show). Discussed with Dr David and will hold off on imaging until after Cycle 4 of PRRT. Plan for Today Patient doing very well today. Tolerated PRRT 2 well with only mild fatigue x 1 week Lab work today showing new thrombocytopenia, platelets=[address] David and will need to repeat lab work next week, around Monday11/12/24 prior to clearing for Cycle 3 PRRT Diarrhea: Encouraged continued cholestyramine and lomotil use to help with symptom management RTC: Repeat lab work on Monday11/12/24 due to thrombocytopenia. Pending results, will need Ok to Treat for Cycle 3 PRRT Options for the Future: Afinitor, cabozantinib, or repeat TAE Other Diagnosis and Plans #DVT - started on 2.5 mg eliquis BID. Experienced RLE edema and pain which has now subsided. #HTN: She is working with her PCP on this issue. Normotensive #Diarrhea: Worsened 06/2024 - Cholestyramine and Lomotil prescribed - Education on the importance of using the medications for management of diarrhea - Cholecystectomy Orders Placed This Encounter CBC, EDIF, PLATELET COMPREHENSIVE METABOLIC PANEL LACTATE DEHYDROGENASE CHROMOGRANIN A GASTRIN - NON-STIMULATED The patient had a number of questions which were answered to the best of our ability and to patient's apparent satisfaction. The patient is agreeable with the plan of care. Of course, in the interim, patient is instructed to contact us with any questions, concerns, or any new or worsening symptoms. AMAIRANI Estes [facility] I have discussed, and formulated the above treatment plan with Dr. David who agrees with the plan. 11/13/24 ADDENDUM NOTE: Repeat platelets=91K. D/w Dr David. Will postpone Cycle 3 PRRT and reschedule ~4 weeks out due to delayed platelet recovery. Will need weekly CBC, platelets until then. Dose reduced to 100 millicurie for C3 with tentative plans to return to full dose of 200 millicurie for C4. Email sent to PRRT team informing them of the above. documented in this encounter [facility] 11-08-2024 Instructions Selina Ortiz RN - 11/08/2024 8:00 AM EDT Please obtain lab work on Sunday 11/12- locally Based on lab work on 11/12, will need Ok to Tx for Cycle 3 PRRT Return to clinic week of Dec 16 with jessica Parson same day prior. The following attachments cannot be sent through Care Everywhere.Foods High in Potassium ([facility]) (Cuban)documented in this encounter [facility] 09-20-2024 History of Present illness Narrative 0:730 am: Mary Jenkins arrived to nuclear theranostics clinic, accompanied by Daughter for Lutathera Cycle 2 DAY 1 today. Oriented to room and unit. Plan of care reviewed. Pharmacy, Nuclear Medicine and Radiation Safety notified. Do you experience any issues with bladder or bowel control? No Any problems with mobility or urgency getting to the bathroom? No; patient occasionally uses a cane to assist with ambulation > If yes to either, please notify Radiation Safety. Aloxi given @ Amino Acid infusion started @ 08;04 AM Start of infusion @ 09:51 AM End of infusion completed @ 10:15 AM. PIV removed per nuclear medicine. Amino Acid infusion re-timed for 3 additional hours. 1:25 pm: Mary Jenkins tolerated treatment well, no reaction noted. Discharged with daughter, to home. Pt to return on 11/15/2024 for Cycle 3 Day 1. documented in this encounter [facility] 09-18-2024 History of Present illness Narrative Reason for consultation. Mary Jenkins is a 83 y.o. female with a long history of paroxysmal atrial fibrillation, hypertension, hyperlipidemia, non obstructive CAD, recurrent DVT and metastatic neuroendocrine cancer. HPI Over the past few months she has noted exertional dyspnea and walking a few 100 yd going up even 1 flight of steps causes her significant shortness of breath. She denied orthopnea, paroxysmal nocturnal dyspnea, pedal edema and chest pain. She has noted frequent palpitations where she feels her heart race and this usually lasts a few minutes. She has not experienced lightheadedness, near-syncope or syncope. She typically has good functional capacity but as noted above activity has been limited by dyspnea. Interim history 09/18/2024 She is doing well overall but has noticed some increase in exertional dyspnea. She was noted to have new hepatic metastases and is on targeted radiation therapy. She feels that her dyspnea has worsened after she has started back on this therapy. She denied chest pain, orthopnea, pedal edema, palpitations, near-syncope and syncope. 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 Recently she visited a local fair and was able to walk without difficulty. Past Medical History: Diagnosis Date Arrhythmia atrial fibrillation Essential hypertension, benign History of cancer Hyperlipidemia DARON (obstructive sleep apnea) Pulmonary hypertension Rheumatic fever Allergies Allergen Reactions Ivp Dye, Iodine Containing Anaphylaxis Takes prednisone & benadryl prior to CT scans as pre-meds Penicillin G Other reaction(s): Shortness of breath, edema Sandostatin [Octreotide] SOB, nausea, vomiting, resulted in hospitalization Concern with mixing administration protocol, not followed exactly, delyaed administration Current Outpatient Medications Medication Sig Dispense Refill amLODIPine 5 MG tablet Take 1 tablet by mouth daily every morning. apixaban 5 MG tablet Take 1 tablet by mouth every 12 hours. Calcium Citrate-Vitamin D (CITRACAL + D PO) Take 1 tablet by mouth daily. cholecalciferol 50 MCG (2000 UT) capsule Take 1 capsule by mouth daily. OTC, gummy x 2 for dose (Patient not taking: Reported on 09/06/2024) cholestyramine 4 g Pack Take 1 packet by mouth daily. 30 packet 0 Coenzyme Q10 (COQ10 PO) Take 200 mg by mouth daily. OTC Cyanocobalamin (B-12) 1000 MCG tablet Take by mouth daily. Gummy x2 for dose, OTC Diphenoxylate-atropine 2.5-0.025 MG tablet EC/DR Take 1 tablet by mouth 4 times daily as needed for Diarrhea for up to 14 days. 56 tablet 0 flecainide 100 MG tablet Take one tablet twice a day for heartbeat. Gabapentin 300 MG capsule Take 1 capsule by mouth 3 times daily. hydroCHLOROthiazide 25 MG tablet Take 1 tablet by mouth daily. lisinopril 40 MG tablet Take 1 tablet by mouth daily every morning. Magnesium 200 MG tablet Take 250 mg by mouth daily every morning. Magnesium Glycinate: OTC Ondansetron 4 MG tablet Take 1 tablet by mouth every 8 hours as needed for Nausea / Vomiting. oxyCODONE-acetaminophen 5-325 MG per tablet Take 1 tablet by mouth every 6 hours as needed. (Patient not taking: Reported on 09/06/2024) POTASSIUM CHLORIDE ER PO Take 20 mEq by mouth daily. predniSONE & diphenhydrAMINE 3 x 50 MG & 1 x 50 MG Kit Take 1 kit by mouth As directed. Take 50 mg prednisone 13 & 7 hrs prior to scans. Take 50 mg benadryl & 50 mg prednisone 1 hour prior. 1 kit 3 predniSONE 50 MG tablet Take 1 tablet by mouth As directed. Prednisone 50mg [address] scan; Prednisone 50mg [address]; Prednisone 50mg [address] with diphenhydramine 50mg 3 tablet 3 Pyridoxine HCl (B-6 PO) Take 100 mg by mouth daily. risedronate 35 MG tablet Take 1 tablet by mouth every 7 days. Mondays Sertraline 100 MG tablet Take 1.5 tablets by mouth daily every morning. No current facility-administered medications for this visit. Family History Problem Relation Age of Onset Coronary Artery Disease Father Cancer- Other Paternal Uncle lip cancer Uterine Cancer Paternal Grandmother Thyroid Cancer Daughter 44 total thyroidectomy- follicular & papillary Breast Cancer Cousin Social History Socioeconomic History Marital status: Spouse name: Not on file Number of children: Not on file Years of education: Not on file Highest education level: Not on file Occupational History Not on file Tobacco Use Smoking status: Never Smokeless tobacco: Never Vaping Use Vaping status: Never Used Substance and Sexual Activity Alcohol use: Not Currently Drug use: Never Sexual activity: Not on file Other Topics Concern Not on file Social History Narrative Not on file Social Drivers of Health Financial Resource Strain: Not on file Food Insecurity: Food Insecurity Present (08/14/2023) Hunger Vital Sign Worried About Running Out of Food in the Last Year: Sometimes true Ran Out of Food in the Last Year: Sometimes true Transportation Needs: No Transportation Needs (08/14/2023) PRAPARE - Transportation Lack of Transportation (Medical): No Lack of Transportation (Non-Medical): No Physical Activity: Not on file Stress: Not on file Social Connections: Not on file Personal Safety: Not At Risk (08/14/2023) Humiliation, Afraid, Rape, and Kick questionnaire Fear of Current or Ex-Partner: No Emotionally Abused: No Physically Abused: No Sexually Abused: No Housing Stability: Low Risk (08/14/2023) Housing Stability Vital Sign Unable to Pay for Housing in the Last Year: No Number of Places Lived in the Last Year: 1 Unstable Housing in the Last Year: No REVIEW OF SYSTEMS ROS As in the history of present illness Rest of the review of systems was negative PHYSICAL EXAMINATION GENERAL APPEARANCE: Well developed, well nourished, in no acute distress. BP 126/60 (BP Location: Left arm, BP Position: Sitting) Pulse 86 Resp 16 Ht 1.524 m (5') Wt 64.4 kg (142 lb) SpO2 99% BMI 27.73 kg/m Smoking Status Never HEENT: Sclerae anicteric and conjunctivae pink. NECK: Supple. No thyromegaly or lymphadenopathy. LUNGS: Air entry equal bilaterally with normal breath sounds. No adventitious sounds. CARDIOVASCULAR: The jugular venous pulse was not elevated. PMI was undisplaced. Rhythm was irregular. Normal first heart sound. Second heart sound is normally split. No gallop, murmur or rub was audible. Carotid pulses were normal bilaterally without any bruits. Carotid upstroke normal. EXTREMITIES: Warm and well perfused. No edema. NEUROLOGIC: Alert and oriented x 3. Normal mood and affect. DIAGNOSTIC DATA: Lab Results Component Value Date CHOLESTEROL 210 (H) 12/08/2023 TRIG 114 12/08/2023 HDL 62 12/08/2023 LDLCALC 125 (H) 12/08/2023 TTE OSH 09/2023 Normal LV function. EF 65% Normal RV size and function RVSP 33 mmHG. Stress MIBI 10/2023 Overall: No evidence of ischemia. Small apical anterior fixed defect consistent with prior infarct vs breast attenuation artifact. PAC's and short run of atrial tachycardia with vasodilator stress. Coronary artery and aortic calcification seen on CT portion. EKG 11/01/23 NSR, old anterior infarct MCT 10/2023 Normal sinus rhythm, NSVT (1 episode of 7 beats). 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 ASSESSMENT/PLAN Paroxysmal atrial fibrillation, PSVT . No symptoms of palpitations lightheadedness or syncope - continue flecainide (has been on this for years) - continue with Eliquis 5 mg b.i.d. (also has history of recurrent DVTs) Exertional dyspnea. This is a longstanding symptom and at the last visit she mentioned that it had improved but since restarting targeted radiation therapy for her liver metastasis she feels that dyspnea has worsened. Clinically no evidence of significant hypervolemia. Recent left heart catheterization did not show any significant elevation of LVEDP. -BNP Non obstructive CAD. Recent left heart catheterization with no obstructive coronary artery disease (25% LAD lesion). She is not on statin due to concerns about liver function but recent LFTs have been normal and will discuss with her about resuming low dose statin HTN. Managed by PCP - continue amlodipine, HC TZ and lisinopril Follow up: 6 months Patient arrived via ambulatory with cane. Accompanied by Alone. Pt here to see Dr. Babin for follow up. Patient was knowledgeable of all their medications, and medication list was reconciled in [facility]IS.. Allergies reviewed with pt.. Patient denies any chest pressure, pain, nausea or vomiting. No diaphoresis, palpitations, headache or lightheadedness. No syncope. Pt stated once in a while dizzy ,SOB with activites and walking or going stairs up and down. Venipuncture performed 09/18/2024. Verified order. Blood drawn from Right Antecubical. 1 attempt was performed. Pt tolerated procedure well and denies any complaints. documented in this encounter [facility] 09-06-2024 History of Present illness Narrative Images from the original note were not included. HISTORY OF PRESENT ILLNESS: Mary Jenkins is a 83 y.o. female who is diagnosed with metastatic neuroendocrine tumor. She comes here today for evaluation regarding diagnosis. She was in usual state of health until: 2015: Resection of parathyroid adenomas August 2020: Acute onset of abdominal pain and diarrhea. She was treated for diverticulitis. Diarrhea improved, but continued with RUQ pain. September 25, 2020: Liver core biopsy: [facility] read: A. Liver mass, CT-guided core biopsy: Metastatic well-differentiated neuroendocrine tumor, G2 Immunohistochemical stain performed at outside hospital TTF 1 negative S100 negative CK7 negative CK20 negative Napsin a negative CD117 negative P 40 negative Pancytokeratin positive NSE positive CD56 positive Synaptophysin positive Chromogranin positive Henry 2 positive CDX2 positive CK8 positive Ki-67: 6% Comment: The immunohistochemical profile suggests a gastrointestinal primary. Clinical correlation is recommended. 10/13/2020: FDG PET: Increased FDG distrubution noted in the region of the proximal ascending colong. Liver does not uptake FDG. 10/2020: Sandostatin q 28 days 12/29/2020: MRI A/P: IMPRESSION: 1. Probable mass involving the distal/terminal ileum which may represent the primary site of the known neuroendocrine tumor. No upstream bowel distention. No mesenteric masses. 2. Multiple lesions within the liver consistent with metastatic disease. Dominant lesion in posterior left lobe. 3. No adenopathy in the abdomen or pelvis. 4. Status post hysterectomy and cholecystectomy. 03/08/2021: laparoscopic right colectomy: A. Right colon and terminal ileum, laparoscopic right hemicolectomy: Well-differentiated neuroendocrine tumor, grade 1,involving the terminal ileum, see synoptic report Surgical margins are negative for tumor Tumor is panmural and involves the serosa Extensive perineural invasion 20 benign lymph nodes (0/20) Immunohistochemical stains for chromogranin and synaptophysin are positive. Manual quantitative immunohistochemistry for Ki-67 is 0%. Zero mitoses were seen in 2 mm2. 03/22/21- left hepatic lobe TAE by Dr. Rush 05/31/2021: Right hepatic lobe TAE 06/16/2021: Venous doppler: +acute DVT of right tibioperoneal trunk, peroneal, soleus veins. 06/19/2021 CT C/A/P multiple lesions of decreased attenuation within the liver worrisome for metastatic disease including a 7 cm lesion within the posterior segment the right lobe of the liver. There is diffuse atherosclerotic calcification of the abdominal aorta, without a demonstrated aneurysm. 08/13/2021 MRI A/P IMPRESSION: 1. Status post right hemicolectomy involving the previously described mass within the distal/terminal ileum, compatible with patient's known history of neuroendocrine tumor. No evidence of recurrence within the resection bed. No discrete mesenteric masses. 2. Status post interval transarterial bland embolization of lesions in segment 2/3 which has decreased in size (now measuring 3.0 x 2.4 cm, previously 4.6 x 4.1 cm.) however demonstrates persistent peripheral arterial phase enhancement, suggestive of viable disease. 3. Status post interval transarterial bland embolization lesion in segment 7. No definite abnormal enhancement is identified. Interval development of likely posttreatment confluent necrotic collections in this region. 4. Additional previously indexed arterially enhancing lesions in segment 4A/5 are not significantly changed. 5. Focus of intrinsic T1 hyperintensity within the proximal common hepatic is suggestive of posttreatment hemobilia. No significant proximal intrahepatic biliary ductal dilation. Mild persistent prominence of the common bile duct could relate to postcholecystectomy ectasia. Chief Complaint Patient presents with Follow-up S/p PRRT #1 on 07/26/24 Would like to go over SE of PRRT again Alopecia Reports hair loss after her first tx. Would like rx for a wig to turn in to her insurance Patient presents today with her daughter. She is doing very well overall. Fatigue ongoing, better within 2 weeks after finishing the first cycle of PRRT. Overall she feels like she tolerated the treatment very well. Diarrhea stable per patient, mostly dependent on what she is eating. She has used imodium inconsistently in the past without success. Denies other signs or symptoms of carcinoid syndrome, namely facial flushing, heart palpitations, chest pain, difficulty breathing, lightheadedness. No other concerns. ECOG PS: 1 REVIEW OF SYSTEMS: A review of systems was performed with the patient at today's patient and is negative except for those items mentioned in the interval history and those items mentioned below as well as in the nursing documentation review of systems. Fatigue: Fatigue relieved by rest Nausea: Loss of appetite without alteration in eating habits Vomiting: Absent or within normal limits Anorexia: Absent or within normal limits Diarrhea: Increase of less than 4 stools per day over baseline OR mild increase in ostomy output compared to baseline Constipation: Absent or within normal limits Peripheral Motor Neuropathy: Absent or within normal limits Depression: Absent or within normal limits Dyspnea: Shortness of breath with moderate exertion (some days are better than others) Rash Maculo-Papular: Macules/papules covering less than 10% BSA with or without symptoms (e.g., pruritus, burning, tightness) Palmar-Plantar Erythrodysesthesia Syndrome: Absent or within normal limits Pain: Absent or within normal limits Fever: Absent or within normal limits Localized Edema: Absent or within normal limits Allergies and Medications: Reviewed, as per chart Past Medical and Surgical History: Reviewed, as per chart Social History: As per chart Family History: As per chart Daughter has thyroid cancer PHYSICAL EXAMINATION: The patient is well built, well nourished, and in no acute distress. Patient is alert, oriented to person, place and time. BP 122/56 (BP Location: Left arm, BP Position: Sitting) Pulse 94 Temp 97.3 F (36.3 C) (Infrared) Resp 16 Ht 1.524 m (5') Wt 63 kg (139 lb) SpO2 97% BMI 27.15 kg/m Smoking Status Never HEENT: Head atraumatic, normocephalic. Gross vision intact. Eyes are nonicteric. Neck: supple, symmetrical Lungs: Clear to auscultation bilaterally. No rales or wheezing. Heart: Regular heart rate and rhythm. Abdomen: Soft, nontender, non distended, without palpable masses. Normoactive bowel sounds present. No liver or mass are palpable. Extremities: No edema Skin: Warm and dry with good skin turgor. No rash. Lymph nodes: No lymphadenopathy noted in left or right inguinal area Neurologic: No focal deficits, grossly intact. IMAGING STUDIES: Imaging results have been reviewed and discussed with the patient. LABS: CMP Lab Results Component Value Date SODIUM 138 09/06/2024 POTASSIUM 3.4 (L) 09/06/2024 CHLORIDE 102 09/06/2024 CO2 26 09/06/2024 BUN 17 09/06/2024 CREATSERUM 0.86 09/06/2024 GLUCOSE 115 09/06/2024 CALCIUM 9.6 09/06/2024 ALT 12 09/06/2024 AST 22 09/06/2024 ALKPHOS 132 (H) 09/06/2024 BILITOTAL 0.6 09/06/2024 BILIDIRECT 0.2 12/08/2023 ALBUMIN 4.2 09/06/2024 CBC Lab Results Component Value Date WBC 4.36 09/06/2024 HGB 11.4 09/06/2024 HCT 33.7 (L) 09/06/2024 PLATELET 154 09/06/2024 MCV 87.8 09/06/2024 LDH Lab Results Component Value Date LDH 170 09/06/2024 TUMOR MARKERS Lab Results Component Value Date TSH 1.408 10/07/2022 CALCITONIN <2.0 12/30/2020 PANCPOLYP 72 12/30/2020 GASTRIN 1315 (H) 06/07/2024 GASTRIN 671 (H) 01/01/2024 GASTRIN 281 (H) 06/30/2023 GASTRIN 400 (H) 03/24/2023 GASTRIN 165 (H) 10/07/2022 GLUCAGON 26 12/30/2020 CHROMOGRANA 317 (H) 06/07/2024 CHROMOGRANA 364 (H) 01/01/2024 CHROMOGRANA 47 06/30/2023 CHROMOGRANA 73 03/24/2023 CHROMOGRANA 60 10/07/2022 Lab results have been reviewed and discussed with the patient. IMPRESSION & PLAN: Diagnosis: WD NET Ki-67 6% of primary likely ileum (FDG PET mesenteric uptake SUV 4.2) Date of Treatment: 10/2020: Sandostatin started. Symptom [place] at presentation: Diarrhea which improved on sandostatin. 03/08/2021: laparoscopic right hemicolectomy: A. Right colon and terminal ileum, laparoscopic right hemicolectomy: Well-differentiated neuroendocrine tumor, grade 1,involving the terminal ileum, see synoptic report Surgical margins are negative for tumor Tumor is panmural and involves the serosa Extensive perineural invasion 20 benign lymph nodes (0/20) Immunohistochemical stains for chromogranin and synaptophysin are positive. Manual quantitative immunohistochemistry for Ki-67 is 0%. Zero mitoses were seen in 2 mm2. 03/22/21- left hepatic TAE by Dr. Rush. 05/31/2021: Right hepatic. Tolerated well. 08/10/2023: Discontinued Sandostatin due to elevated LFTs, total bilirubin max of 8.6 07/26/2024: PRRT C1D1 Assessments Last Labs: Labs stable, mild hypokalemia, gave high potassium food list and controlling diarrhea with medications to help, also on oral potassium Last Scans: No new scans Plan for Today Patient doing very well today. Tolerated PRRT 1 well with only mild fatigue Lab work stable. OK for PRRT 2 Diarrhea: Encouraged cholestyramine and lomotil use to help with symptom management RTC: Scans in 4 weeks; labs and RTC with Dr. David 1 week following Options for the Future: Afinitor, cabozantinib, or repeat TAE Other Diagnosis and Plans #DVT - started on 2.5 mg eliquis BID. Experienced RLE edema and pain which has now subsided. #HTN: She is working with her PCP on this issue. Normotensive #Diarrhea: Worsened 06/2024 - Cholestyramine and Lomotil prescribed - Education on the importance of using the medications for management of diarrhea - Cholecystectomy Orders Placed This Encounter WIG CT CHEST WITHOUT CONTRAST MRI ABDOMEN/PELVIS WITHOUT AND WITH CONTRAST CBC, EDIF, PLATELET COMPREHENSIVE METABOLIC PANEL LACTATE DEHYDROGENASE CHROMOGRANIN A GASTRIN - NON-STIMULATED Diphenoxylate-atropine 2.5-0.025 MG tablet EC/DR The patient had many questions all that were answered to her satisfaction. She will contact the clinic with any questions or concerns. She understands and agrees to the plan. I have discussed and formulated the above treatment plan with Dr. Erwin David who agrees with the plan. AMAIRANI Parson Neuroendocrine/Thyroid Tumor [facility] documented in this encounter [facility] 09-06-2024 Instructions AMAIRANI Aviles - 09/06/2024 10:00 AM EDT Return to clinic: Scans around 10/18/24 RTC and labs with Dr. David the following week Please try the cholestyramine packets and lomotil to help with the diarrhea High potassium food list to help with potassium - also, slowing the diarrhea will help with the potassium. Also continue taking your potassium pills Treatment: PRRT The following attachments cannot be sent through Care Everywhere.Foods High in Potassium ([facility]) (Cuban)documented in this encounter [facility] 07-26-2024 History of Present illness Narrative Mary Jenkins arrived to [facility], accompanied by family, for Lutathera Cycle 1 today. Oriented to room and unit. Plan of care reviewed. Pharmacy, Nuclear Medicine and Radiation Safety notified. Do you experience any issues with bladder or bowel control? Yes, wears briefs. Any problems with mobility or urgency getting to the bathroom? Yes, cane. > If yes to either, please notify Radiation Safety. Notified Brigitte from Radiation Safety in person Aloxi given @ 0818 Amino Acid infusion started @ 0846 Lutathera started @ 0925 Lutathera infusion completed @ 0947. PIV removed per nuclear medicine. Amino Acid infusion re-timed for 3 additional hours. Mary Jenkins tolerated well, no reaction noted. Discharged with family, to HOME. Pt to return on 08/23/2024 for a follow-up with Clint Diaz CNP. Cycle 1 blanket given to patient. AVS given to patient and family. documented in this encounter [facility] 07-26-2024 Instructions Kalyn Campbell RN - 07/26/2024 7:30 AM EDT [address], [place] [address] [address] at [address] garage connects to the hospital. It is closer to [facility] OR you can also do blanchard grinder operator that is in front of the building. We are on the Ground floor of [facility]. The following attachments cannot be sent through Care Everywhere.palonosetron (injection) (Cuban)lutetium Larry 177 dotatate (Cuban)documented in this encounter [facility] 07-12-2024 Telephone encounter Note Called pt to make her aware that per [facility] there is availability on 07/26/24 at 7:30 for her first PRRT. Pt is ok with new date and time for her PRRTs. Discussed with pt that we are sending local lab order to [facility] for Ok to treat for her first PRRT. Pt is aware to get labs drawn next week on Monday and Monday. Pt is also aware that our scheduling team will be reaching to her to set up RTC with Dr David's team 4 weeks after her first PRRT. No further questions at this time. Staff message now in place to follow up on local labs for ok to treat. DONE [facility] 07-12-2024 Miscellaneous Notes Called pt to make her aware that per [facility] there is availability on 07/26/24 at 7:30 for her first PRRT. Pt is ok with new date and time for her PRRTs. Discussed with pt that we are sending local lab order to [facility] for Ok to treat for her first PRRT. Pt is aware to get labs drawn next week on Monday and Monday. Pt is also aware that our scheduling team will be reaching to her to set up RTC with Dr David's team 4 weeks after her first PRRT. No further questions at this time. Staff message now in place to follow up on local labs for ok to treat. DONE Addended by: CLINT DIAZ on: 07/11/2024 01:51 PM Modules accepted: Orders Called pt to follow up on labs for OK to treat prior to PRRT scheduled on 07/19/24. Pt reports the following: -pt cannot come to [facility] for labs and would like for orders to be faxed to [facility] instead -pt is requesting that PRRT # 1 on 07/19 get re-schedule to the week after since her granddaughter is graduating that week and she would like to spend time with her family. [facility] first [facility] can be scheduled for 07/26 if this is still available). -Discussed with pt that labs/RTC still need to be scheduled 1 month after her first PRRT treatment. Nursing: please follow up on the above. 07/09/2024 12:21 PM Received the following from the [facility] scheduling team: -- For Wednesday 07/19 [facility] only has a 7:30 Rn called patient to make her aware of the above date/time. Patient verbalizes understanding. No other questions or concerns voiced. --Clint Mondragon RN 07/09/2024 12:00 PM Let the patient know that the following dates are available: 07/12, 07/18, 07/19, 07/25, 07/26 ++++ 07/19/2024 is when she would like to start ++++ Unsure of time to start ++++ Will need to have labs drawn ++++ --Clint Mondragon RN 07/03/2024 10:51 AM RN sent an email to tather authorization department to follow up on scheduling of PRRT/auth to be scheduled prior to 07/12?? Update: Another authorization is NOT NEEDED Last set of labs were drawn on 06/12/2024- WILL NEED A NEW SET OF LABS DRAWN (unsure when) PRRT has been approved as of 06/17 SSA injections? Not on medication list- verified with patient that she is NOT on this medication Incontinence screening as below: Do you experience any of the following urinary issues: Do you need assistance walking to bathroom No- per patient report she still does her own housework at home Do you use a urinal/ or bedside commode at home No Do you use absorbent pads/ use adult briefs Yes Urinary frequency No Urinary incontinence No Urinary urgency No Urine leakage when standing or walking Yes Do you have a prosthetic medical records tech for collecting medical waste such as ostomy bag/ nephrostomy tube/ urinary catheter No Other urinary concerns No --Clint Mondragon RN 07/03/2024 10:29 AM RN sent an email to the Lutathera group to see if patient is needing to have another authorization prior to July 12. ++++ Prrt has been approved ++++ Waiting on dates/times for PRRT --Clint Mondragon RN Ppw received via mobile mum message and forwarded to Lutathera team and pre-d. Call placed to pt to see if she has completed lutathera assistance forms yet at this time. Per pt, her and her daughter filled this out, and jade sent it back to us. Nothing available in pt chart at this time. Call placed to pt daughter to see where this was sent. No answer. Detailed message left requesting a call back 06/18/2024 1:56 PM RN called patient to see if she was able to fill out her AAA lutathera/prrt forms out. She states that she will get on her computer and get her forms signed and sent back to us. She states that she has had shingles for over a week now and she states that her shingles will last 3-4 weeks. She reports that she has not received any kind of treatment for her shingles. RN explains to patient that she would not be able to receive treatment with her active shingles. No treatment scheduled at this time. Patient states I wont be able to come in on Monday for treatment. RN did not see anything scheduled for treatment for PRRT this week as there needs to be a benefits/insurance authorization on file prior to scheduling. Patient verbalizes understanding. No other questions or concerns voiced. --Clint Mondragon RN Upon cassy review pt read message with application 06/12. No response or application received at this time. [employer] message sent to follow up. Hernandez Hernandez, I am following up to see if you were able to sign the insurance authorization for the Lutathera (PRRT) treatment. Please let us know if you have any questions or difficulties. Thanks, Maddie SCOTT, BSN [phone] ++awaiting response++ ----- Message from DOUG Marks sent at 06/12/2024 2:34 PM EDT ----- Patient was seen by telemedicine with Dr. David on 06/12 Ordered to start Lutathera Patient was sent the AAA paperwork via [employer] to sign and return. Please confirm the AAA paperwork has been received Once received - send to pharm pre-d/MAP infusion and request for authorization - set additional reminders to f/up on authorization approval, will need to schedule C1 D1 Lutathera based on availability. - needs to complete the urine screening note - needs RTC/labs 1 month post C1 treatment ++++ okay to treat labs will 07/05 documented in this encounter [facility] 07-11-2024 Note Addended by: CLINT DIAZ on: 07/11/2024 01:51 PM Modules accepted: Orders [facility] 07-11-2024 Note Addended by: CLINT DIAZ on: 07/11/2024 01:51 PM Modules accepted: Orders [facility] 07-11-2024 Note Addended by: CLINT DIAZ on: 07/11/2024 01:51 PM Modules accepted: [facility] Note Addended by: CLINT DIAZ on: 07/11/2024 01:51 PM Modules accepted: [facility] Note Addended by: CLINT DIAZ on: 07/11/2024 01:51 PM Modules accepted: Orders [facility] 07-11-2024 Miscellaneous Notes Addended by: CLINT DIAZ on: 07/11/2024 01:51 PM Modules accepted: Orders Called pt to follow up on labs for OK to treat prior to PRRT scheduled on 07/19/24. Pt reports the following: -pt cannot come to [facility] for labs and would like for orders to be faxed to [facility] instead -pt is requesting that PRRT # 1 on 07/19 get re-schedule to the week after since her granddaughter is graduating that week and she would like to spend time with her family. ([facility] if first PRRT can be scheduled for 07/26 if this is still available). -Discussed with pt that labs/RTC still need to be scheduled 1 month after her first PRRT treatment. Nursing: please follow up on the above. 07/09/2024 12:21 PM Received the following from the [facility] scheduling team: -- For Wednesday 07/19 [facility] only has a 7:30 Rn called patient to make her aware of the above date/time. Patient verbalizes understanding. No other questions or concerns voiced. --Clint Mondragon RN 07/09/2024 12:00 PM Let the patient know that the following dates are available: 07/12, 07/18, 07/19, 07/25, 07/26 ++++ 07/19/2024 is when she would like to start ++++ Unsure of time to start ++++ Will need to have labs drawn ++++ --Clint Mondragon RN 07/03/2024 10:51 AM RN sent an email to [facility] authorization department to follow up on scheduling of PRRT/auth to be scheduled prior to 07/12?? Update: Another authorization is NOT NEEDED Last set of labs were drawn on 06/12/2024- WILL NEED A NEW SET OF LABS DRAWN (unsure when) PRRT has been approved as of 06/17 SSA injections? Not on medication list- verified with patient that she is NOT on this medication Incontinence screening as below: Do you experience any of the following urinary issues: Do you need assistance walking to bathroom No- per patient report she still does her own housework at home Do you use a urinal/ or bedside commode at home No Do you use absorbent pads/ use adult briefs Yes Urinary frequency No Urinary incontinence No Urinary urgency No Urine leakage when standing or walking Yes Do you have a prosthetic medical records tech for collecting medical waste such as ostomy bag/ nephrostomy tube/ urinary catheter No Other urinary concerns No --Clint Mondragon RN 07/03/2024 10:29 AM RN sent an email to the [facility] group to see if patient is needing to have another authorization prior to July 12. ++++ Prrt has been approved ++++ Waiting on dates/times for PRRT --Clint Mondragon RN Ppw received via mobile mum message and forwarded to [facility] team and pre-d. Call placed to pt to see if she has completed lutathera assistance forms yet at this time. Per pt, her and her daughter filled this out, and jade sent it back to us. Nothing available in pt chart at this time. Call placed to pt daughter to see where this was sent. No answer. Detailed message left requesting a call back 06/18/2024 1:56 PM RN called patient to see if she was able to fill out her AAA lutathera/prrt forms out. She states that she will get on her computer and get her forms signed and sent back to us. She states that she has had shingles for over a week now and she states that her shingles will last 3-4 weeks. She reports that she has not received any kind of treatment for her shingles. RN explains to patient that she would not be able to receive treatment with her active shingles. No treatment scheduled at this time. Patient states I wont be able to come in on Monday for treatment. RN did not see anything scheduled for treatment for PRRT this week as there needs to be a benefits/insurance authorization on file prior to scheduling. Patient verbalizes understanding. No other questions or concerns voiced. --Clint Mondragon RN Upon cassy review pt read message with application 06/12. No response or application received at this time. [employer] message sent to follow up. Hernandez Hernandez, I am following up to see if you were able to sign the insurance authorization for the Lutathera (PRRT) treatment. Please let us know if you have any questions or difficulties. Thanks, Maddie SCOTT, BSN [phone] ++awaiting response++ ----- Message from DOUG Marks sent at 06/12/2024 2:34 PM EDT ----- Patient was seen by telemedicine with Dr. David on 06/12 Ordered to start Lut[facility]ra Patient was sent the AAA paperwork via [employer] to sign and return. Please confirm the AAA paperwork has been received Once received - send to pharm pre-d/MAP infusion and request for authorization - set additional reminders to f/up on authorization approval, will need to schedule C1 D1 Lut[facility]ra based on availability. - needs to complete the urine screening note - needs RTC/labs 1 month post C1 treatment ++++ okay to treat labs will 07/05 documented in this encounter [facility] 07-11-2024 Telephone encounter Note Called pt to follow up on labs for OK to treat prior to PRRT scheduled on 07/19/24. Pt reports the following: -pt cannot come to [facility] for labs and would like for orders to be faxed to [facility] instead -pt is requesting that PRRT # 1 on 07/19 get re-schedule to the week after since her granddaughter is graduating that week and she would like to spend time with her family. (Email has been sent to [facility] group to ask if first PRRT can be scheduled for 07/26 if this is still available). -Discussed with pt that labs/RTC still need to be scheduled 1 month after her first PRRT treatment. Nursing: please follow up on the above. [facility] 07-09[facility]2024 Telephone encounter Note 07/09/2024 12:21 PM Received the following from the [facility] scheduling team: -- For Wednesday 07/19 [facility] Infusion only has a 7:30 Rn called patient to make her aware of the above date/time. Patient verbalizes understanding. No other questions or concerns voiced. --Clint Mondragon RN [facility] 07-09-2024 Miscellaneous Notes 07/09/2024 12:21 PM Received the following from the [facility] scheduling team: -- For Wednesday 07/19 [facility] Infusion only has a 7:30 Rn called patient to make her aware of the above date/time. Patient verbalizes understanding. No other questions or concerns voiced. --Clint Mondragon RN 07/09/2024 12:00 PM Let the patient know that the following dates are available: 07/12, 07/18, 07/19, 07/25, 07/26 ++++ 07/19/2024 is when she would like to start ++++ Unsure of time to start ++++ Will need to have labs drawn ++++ --Clint Mondragon RN 07/03/2024 10:51 AM [facility]/auth to be scheduled prior to 07/12?? Update: Another authorization is NOT NEEDED Last set of labs were drawn on 06/12/2024- WILL NEED A NEW SET OF LABS DRAWN (unsure when) PRRT has been approved as of 06/17 SSA injections? Not on medication list- verified with patient that she is NOT on this medication Incontinence screening as below: Do you experience any of the following urinary issues: Do you need assistance walking to bathroom No- per patient report she still does her own housework at home Do you use a urinal/ or bedside commode at home No Do you use absorbent pads/ use adult briefs Yes Urinary frequency No Urinary incontinence No Urinary urgency No Urine leakage when standing or walking Yes Do you have a prosthetic medical records tech for collecting medical waste such as ostomy bag/ nephrostomy tube/ urinary catheter No Other urinary concerns No --Clint Mondragon RN 07/03/2024 10:29 AM RN sent an email to the [facility] group to see if patient is needing to have another authorization prior to July 12. ++++ Prrt has been approved ++++ Waiting on dates/times for PRRT --Clint Mondragon RN Ppw received via mobile mum message and forwarded to [facility] team and pre-d. Call placed to pt to see if she has completed lutathera assistance forms yet at this time. Per pt, her and her daughter filled this out, and jade sent it back to us. Nothing available in pt chart at this time. Call placed to pt daughter to see where this was sent. No answer. Detailed message left requesting a call back 06/18/2024 1:56 PM RN called patient to see if she was able to fill out her AAA lutathera/prrt forms out. She states that she will get on her computer and get her forms signed and sent back to us. She states that she has had shingles for over a week now and she states that her shingles will last 3-4 weeks. She reports that she has not received any kind of treatment for her shingles. RN explains to patient that she would not be able to receive treatment with her active shingles. No treatment scheduled at this time. Patient states I wont be able to come in on Monday for treatment. RN did not see anything scheduled for treatment for PRRT this week as there needs to be a benefits/insurance authorization on file prior to scheduling. Patient verbalizes understanding. No other questions or concerns voiced. --Clint Mondragon RN Upon cassy review pt read message with application 06/12. No response or application received at this time. [employer] message sent to follow up. Hernandez Hernandez, I am following up to see if you were able to sign the insurance authorization for the Lutathera (PRRT) treatment. Please let us know if you have any questions or difficulties. Thanks, Maddie SCOTT, BSN [phone] ++awaiting response++ ----- Message from DOUG Marks sent at 06/12/2024 2:34 PM EDT ----- Patient was seen by telemedicine with Dr. Davdi on 06/12 Ordered to start Lutathera Patient was sent the AAA paperwork via [employer] to sign and return. Please confirm the AAA paperwork has been received Once received - send to pharm pre-d/MAP infusion and request for authorization - set additional reminders to f/up on authorization approval, will need to schedule C1 D1 Lut[facility]ra based on availability. - needs to complete the urine screening note - needs RTC/labs 1 month post C1 treatment ++++ okay to treat labs will 07/05 documented in this encounter [facility] 07-09-2024 Telephone encounter Note 07/09/2024 12:00 PM Let the patient know that the following dates are available: 07/12, 07/18, 07/19, 07/25, 07/26 ++++ 07/19/2024 is when she would like to start ++++ Unsure of time to start ++++ Will need to have labs drawn ++++ --Clint Mondragon RN [facility] 07-03-2024 Telephone encounter Note 07/03/2024 10:51 AM RN sent an email to [facility] authorization department to follow up on scheduling of PRRT/auth to be scheduled prior to 07/12?? Update: Another authorization is NOT NEEDED Last set of labs were drawn on 06/12/2024- WILL NEED A NEW SET OF LABS DRAWN (unsure when) PRRT has been approved as of 06/17 SSA injections? Not on medication list- verified with patient that she is NOT on this medication Incontinence screening as below: Do you experience any of the following urinary issues: Do you need assistance walking to bathroom No- per patient report she still does her own housework at home Do you use a urinal/ or bedside commode at home No Do you use absorbent pads/ use adult briefs Yes Urinary frequency No Urinary incontinence No Urinary urgency No Urine leakage when standing or walking Yes Do you have a prosthetic medical records tech for collecting medical waste such as ostomy bag/ nephrostomy tube/ urinary catheter No Other urinary concerns No --Clint Mondragon RN [facility] 07-03-2024 Miscellaneous Notes 07/03/2024 10:51 AM RN sent an email to [facility] authorization department to follow up on scheduling of PRRT/auth to be scheduled prior to 07/12?? Update: Another authorization is NOT NEEDED Last set of labs were drawn on 06/12/2024- WILL NEED A NEW SET OF LABS DRAWN (unsure when) PRRT has been approved as of 06/17 SSA injections? Not on medication list- verified with patient that she is NOT on this medication Incontinence screening as below: Do you experience any of the following urinary issues: Do you need assistance walking to bathroom No- per patient report she still does her own housework at home Do you use a urinal/ or bedside commode at home No Do you use absorbent pads/ use adult briefs Yes Urinary frequency No Urinary incontinence No Urinary urgency No Urine leakage when standing or walking Yes Do you have a prosthetic medical records tech for collecting medical waste such as ostomy bag/ nephrostomy tube/ urinary catheter No Other urinary concerns No --Clint Mondragon RN 07/03/2024 10:29 AM RN sent an email to the [facility] group to see if patient is needing to have another authorization prior to July 12. ++++ Prrt has been approved ++++ Waiting on dates/times for PRRT --Clint Mondragon RN Ppw received via mobile mum message and forwarded to [facility] team and pre-d. Call placed to pt to see if she has completed lutathera assistance forms yet at this time. Per pt, her and her daughter filled this out, and jade sent it back to us. Nothing available in pt chart at this time. Call placed to pt daughter to see where this was sent. No answer. Detailed message left requesting a call back 06/18/2024 1:56 PM RN called patient to see if she was able to fill out her AAA lutathera/prrt forms out. She states that she will get on her computer and get her forms signed and sent back to us. She states that she has had shingles for over a week now and she states that her shingles will last 3-4 weeks. She reports that she has not received any kind of treatment for her shingles. RN explains to patient that she would not be able to receive treatment with her active shingles. No treatment scheduled at this time. Patient states I wont be able to come in on Monday for treatment. RN did not see anything scheduled for treatment for PRRT this week as there needs to be a benefits/insurance authorization on file prior to scheduling. Patient verbalizes understanding. No other questions or concerns voiced. --Clint Mondragon RN Upon cassy review pt read message with application 06/12. No response or application received at this time. [employer] message sent to follow up. Stephmk Hernandez, I am following up to see if you were able to sign the insurance authorization for the Lutathera (PRRT) treatment. Please let us know if you have any questions or difficulties. Thanks, Maddie SCOTT, BSN [phone] ++awaiting response++ ----- Message from DOUG Marks sent at 06/12/2024 2:34 PM EDT ----- Patient was seen by telemedicine with Dr. David on 06/12 Ordered to start Lut[facility]ra Patient was sent the AAA paperwork via [employer] to sign and return. Please confirm the AAA paperwork has been received Once received - send to pharm pre-d/MAP infusion and request for authorization - set additional reminders to f/up on authorization approval, will need to schedule C1 D1 Lut[facility]ra based on availability. - needs to complete the urine screening note - needs RTC/labs 1 month post C1 treatment ++++ okay to treat labs will 07/05 documented in this encounter [facility] 07-03-2024 Telephone encounter Note 07/03/2024 10:29 AM RN sent an email to the [facility] group to see if patient is needing to have another authorization prior to July 12. ++++ Prrt has been approved ++++ Waiting on dates/times for PRRT --Clint Mondragon RN [facility] 06-28-2024 Telephone encounter Note Ppw received via mobile mum message and forwarded to [facility] team and pre-d. [facility] 06-28-2024 Miscellaneous Notes Ppw received via mobile mum message and forwarded to [facility] team and pre-d. Call placed to pt to see if she has completed lutathera assistance forms yet at this time. Per pt, her and her daughter filled this out, and jade sent it back to us. Nothing available in pt chart at this time. Call placed to pt daughter to see where this was sent. No answer. Detailed message left requesting a call back 06/18/2024 1:56 PM RN called patient to see if she was able to fill out her AAA lutathera/prrt forms out. She states that she will get on her computer and get her forms signed and sent back to us. She states that she has had shingles for over a week now and she states that her shingles will last 3-4 weeks. She reports that she has not received any kind of treatment for her shingles. RN explains to patient that she would not be able to receive treatment with her active shingles. No treatment scheduled at this time. Patient states I wont be able to come in on Monday for treatment. RN did not see anything scheduled for treatment for PRRT this week as there needs to be a benefits/insurance authorization on file prior to scheduling. Patient verbalizes understanding. No other questions or concerns voiced. --Clint Mondragon RN Upon cassy review pt read message with application 06/12. No response or application received at this time. [employer] message sent to follow up. Hernandez Hernandez, I am following up to see if you were able to sign the insurance authorization for the Lutathera (PRRT) treatment. Please let us know if you have any questions or difficulties. Thanks, Maddie SCOTT, BSN [phone] ++awaiting response++ ----- Message from DOUG Marks sent at 06/12/2024 2:34 PM EDT ----- Patient was seen by telemedicine with Dr. David on 06/12 Ordered to start Lut[facility]ra Patient was sent the AAA paperwork via [employer] to sign and return. Please confirm the AAA paperwork has been received Once received - send to pharm pre-d/MAP infusion and request for authorization - set additional reminders to f/up on authorization approval, will need to schedule C1 D1 L[facility]ra based on availability. - needs to complete the urine screening note - needs RTC/labs 1 month post C1 treatment ++++ okay to treat labs will 07/05 documented in this encounter [facility] 06-26-2024 Telephone encounter Note Call placed to pt to see if she has completed lutathera assistance forms yet at this time. Per pt, her and her daughter filled this out, and jade sent it back to us. Nothing available in pt chart at this time. Call placed to pt daughter to see where this was sent. No answer. Detailed message left requesting a call back [facility] 06-26-2024 Miscellaneous Notes Call placed to pt to see if she has completed lutathera assistance forms yet at this time. Per pt, her and her daughter filled this out, and jade sent it back to us. Nothing available in pt chart at this time. Call placed to pt daughter to see where this was sent. No answer. Detailed message left requesting a call back 06/18/2024 1:56 PM RN called patient to see if she was able to fill out her AAA lutathera/prrt forms out. She states that she will get on her computer and get her forms signed and sent back to us. She states that she has had shingles for over a week now and she states that her shingles will last 3-4 weeks. She reports that she has not received any kind of treatment for her shingles. RN explains to patient that she would not be able to receive treatment with her active shingles. No treatment scheduled at this time. Patient states I wont be able to come in on Monday for treatment. RN did not see anything scheduled for treatment for PRRT this week as there needs to be a benefits/insurance authorization on file prior to scheduling. Patient verbalizes understanding. No other questions or concerns voiced. --Clint Mondragon RN Upon cassy review pt read message with application 06/12. No response or application received at this time. [employer] message sent to follow up. Hernandez Hernandez, I am following up to see if you were able to sign the insurance authorization for the Lutathera (PRRT) treatment. Please let us know if you have any questions or difficulties. Thanks, Maddie SCOTT, BSN [phone] ++awaiting response++ ----- Message from DOUG Marks sent at 06/12/2024 2:34 PM EDT ----- Patient was seen by telemedicine with Dr. David on 06/12 Ordered to start Lutathera Patient was sent the AAA paperwork via [employer] to sign and return. Please confirm the AAA paperwork has been received Once received - send to pharm pre-d/MAP infusion and request for authorization - set additional reminders to f/up on authorization approval, will need to schedule C1 D1 Lutathera based on availability. - needs to complete the urine screening note - needs RTC/labs 1 month post C1 treatment ++++ okay to treat labs will 07/05 documented in this encounter [facility] 06-18-2024 Telephone encounter Note 06/18/2024 1:56 PM RN called patient to see if she was able to fill out her AAA lutathera/prrt forms out. She states that she will get on her computer and get her forms signed and sent back to us. She states that she has had shingles for over a week now and she states that her shingles will last 3-4 weeks. She reports that she has not received any kind of treatment for her shingles. RN explains to patient that she would not be able to receive treatment with her active shingles. No treatment scheduled at this time. Patient states I wont be able to come in on Monday for treatment. RN did not see anything scheduled for treatment for PRRT this week as there needs to be a benefits/insurance authorization on file prior to scheduling. Patient verbalizes understanding. No other questions or concerns voiced. --Clint Mondragon RN [facility] 06-18-2024 Miscellaneous Notes 06/18/2024 1:56 PM RN called patient to see if she was able to fill out her AAA lutathera/prrt forms out. She states that she will get on her computer and get her forms signed and sent back to us. She states that she has had shingles for over a week now and she states that her shingles will last 3-4 weeks. She reports that she has not received any kind of treatment for her shingles. RN explains to patient that she would not be able to receive treatment with her active shingles. No treatment scheduled at this time. Patient states I wont be able to come in on Monday for treatment. RN did not see anything scheduled for treatment for PRRT this week as there needs to be a benefits/insurance authorization on file prior to scheduling. Patient verbalizes understanding. No other questions or concerns voiced. --Clint Mondragon RN Upon cassy review pt read message with application 06/12. No response or application received at this time. [employer] message sent to follow up. Hernandez Hernandez, I am following up to see if you were able to sign the insurance authorization for the Lutathera (PRRT) treatment. Please let us know if you have any questions or difficulties. Thanks, Maddie SCOTT, BSN [phone] ++awaiting response++ ----- Message from DOUG Marks sent at 06/12/2024 2:34 PM EDT ----- Patient was seen by telemedicine with Dr. David on 06/12 Ordered to start Lutathera Patient was sent the AAA paperwork via [employer] to sign and return. Please confirm the AAA paperwork has been received Once received - send to pharm pre-d/MAP infusion and request for authorization - set additional reminders to f/up on authorization approval, will need to schedule C1 D1 Lutathera based on availability. - needs to complete the urine screening note - needs RTC/labs 1 month post C1 treatment ++++ okay to treat labs will 07/05 documented in this encounter [facility] 06-14-2024 Telephone encounter Note Upon cassy review pt read message with application 06/12. No response or application received at this time. My[employer] message sent to follow up. Hernandez Hernandez, I am following up to see if you were able to sign the insurance authorization for the Lutathera (PRRT) treatment. Please let us know if you have any questions or difficulties. Thanks, Maddie SCOTT, BSN [phone] ++awaiting response++ [facility] 06-14-2024 Miscellaneous Notes Upon cassy review pt read message with application 06/12. No response or application received at this time. [employer] message sent to follow up. Hernandez Hernandez, I am following up to see if you were able to sign the insurance authorization for the Lutathera (PRRT) treatment. Please let us know if you have any questions or difficulties. Thanks, Maddie SCOTT, BSN [phone] ++awaiting response++ ----- Message from DOUG Marks sent at 06/12/2024 2:34 PM EDT ----- Patient was seen by telemedicine with Dr. David on 06/12 Ordered to start Lutathera Patient was sent the AAA paperwork via [employer] to sign and return. Please confirm the AAA paperwork has been received Once received - send to pharm pre-d/MAP infusion and request for authorization - set additional reminders to f/up on authorization approval, will need to schedule C1 D1 Lut[facility]ra based on availability. - needs to complete the urine screening note - needs RTC/labs 1 month post C1 treatment ++++ okay to treat labs will 07/05 documented in this encounter [facility] 06-14-2024 Telephone encounter Note ----- Message from DOUG Marks sent at 06/12/2024 2:34 PM EDT ----- Patient was seen by telemedicine with Dr. David on 06/12 Ordered to start Lutathera Patient was sent the AAA paperwork via [employer] to sign and return. Please confirm the AAA paperwork has been received Once received - send to pharm pre-d/MAP infusion and request for authorization - set additional reminders to f/up on authorization approval, will need to schedule C1 D1 Lutathera based on availability. - needs to complete the urine screening note - needs RTC/labs 1 month post C1 treatment ++++ okay to treat labs will 07/05 [facility] 06-07-2024 Note EXAM: MRI ABDOMEN WI TH AND WITHOUT CONTRAST, 06/07/2024 10:24 AM CLINICAL INDICATIONS: ongoing [...] neuroendocrine PET are again not within the [id number] of this abdominal only study. 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 [facility] 06-06-2024 Evaluation note Diagnosis Onset Date Resolution Dyspnea on exertion acute June 06, 2024 1:36pm Essential hypertension chronic June 06, 2024 1:36pm SVT (supraventricular tachycardia) chronic June 06, 2024 1:36pm DVT (deep venous thrombosis) June 16, 2021 resolved June 06, 2024 1:36pm [facility] Work Phone: 1(997) 899-989704-11-2025 Note* Addendum Note - AMAIRANI Hoyt - 05/24/2024 6:16 PM EDTAddended by: RAHUL POSEY on: 05/24/2024 06:16 PM Modules accepted: Orders [facility]04-11-2025 Note* Addendum Note - AMAIRANI Hoyt - 05/24/2024 6:16 PM EDTAddended by: RAHUL POSEY on: 05/24/2024 06:16 PM Modules accepted: Orders [facility]04-11-2025 Note* Addendum Note - AMAIRANI Hoyt - 05/24/2024 6:16 PM EDTAddended by: RAHUL POSEY on: 05/24/2024 06:16 PM Modules accepted: Orders [facility]04-11-2025 Miscellaneous Notes* Addendum Note - AMAIRANI Hoyt - 05/24/2024 6:16 PM EDTAddended by: RAHUL POSEY on: 05/24/2024 06:16 PM Modules accepted: Orders * Addendum Note - Sabrina Moreira RN - 05/24/2024 5:25 PM EDTAddended by: SABRINA MOREIRA on: 05/24/2024 05:25 PM Modules accepted: Orders * Addendum Note - AMAIRANI Hoyt - 05/24/2024 4:49 PM EDTAddended by: RAHUL POSEY on: 05/24/2024 04:49 PM Modules accepted: Orders * Telephone Encounter - Maddie Bowden RN - 05/24/2024 4:00 PM EDT Phone call placed to pt. Informed of response from Rahul BALES Clint ordered the premed with 3 refills back in April which should suffices. Pt states she check with pharmacy and was told they never received the script. Upon chart review noted the following confirmation of script E-Prescribing Status: Receipt confirmed by pharmacy (04/29/2024 1:31 PM EDT) Phone call [facility] Rep stated they did not receive despite the confirmation and requested a new order be sent. * Telephone Encounter - Korin Multani 05/23/2024 2:20 PM EDT Pt called in asking for prednisone to take prior to her ct scans She would like it sent to - [facility] [id number] - [place] [address] [address] [facility] Note* Addendum Note - Sabrina Moreira RN - 05/24/2024 5:25 PM EDTAddended by: SABRINA MOREIRA on: 05/24/2024 05:25 PM Modules accepted: Orders [facility]04-11-2025 Note* Addendum Note - Sabrina Moreira RN - 05/24/2024 5:25 PM EDTAddended by: SABRINA MOREIRA on: 05/24/2024 05:25 PM Modules accepted: Orders [facility]04-11-2025 Note* Addendum Note - Sabrina Moreira RN - 05/24/2024 5:25 PM EDTAddended by: SABRINA MOREIRA on: 05/24/2024 05:25 PM Modules accepted: Orders [facility]04-11-2025 Note* Addendum Note - AMAIRANI Hoyt - 05/24/2024 4:49 PM EDTAddended by: RAHUL POSEY on: 05/24/2024 04:49 PM Modules accepted: Orders [facility]04-11-2025 Note* Addendum Note - AMAIRANI Hoyt - 05/24/2024 4:49 PM EDTAddended by: RAHUL POSEY on: 05/24/2024 04:49 PM Modules accepted: Orders [facility]04-11-2025 Note* Addendum Note - AMAIRANI Hoyt - 05/24/2024 4:49 PM EDTAddended by: RAHUL POSEY on: 05/24/2024 04:49 PM Modules accepted: Orders [facility]04-11-2025 Telephone encounter Note* Telephone Encounter - Maddie Bowden RN - 05/24/2024 4:00 PM EDT Phone call placed to pt. Informed of response from Rahul BALES Clint ordered the premed with 3 refills back in April which should suffices. Pt states she check with pharmacy and was told they never received the script. Upon chart review noted the following confirmation of script E-Prescribing Status: Receipt confirmed by pharmacy (04/29/2024 1:31 PM EDT) Phone call placed to [facility]. Rep stated they did not receive despite the confirmation and requested a new order be sent. [facility]04-10-2025 Telephone encounter Note* Telephone Encounter - Korin Bliss - 05/23/2024 2:20 PM EDT Pt called in asking for prednisone to take prior to her ct scans She would like it sent to - [facility] [id number] [place] [address] - [address] [facility]03-18-2025 Telephone encounter Note* Telephone Encounter - Colette Rivera RN - 04/30/2024 10:18 AM EDT Called pt to follow up on previous phone call and to make her aware that we sent a refill for her pre-medication yesterday at 1:31. Per pt, she has already re- scheduled her appointments for May andshe will call them to follow up on this. Pt aware to call our office if she has any further questions/concerns or if there is anything else needed from our office. [facility]03-18[facility] Miscellaneous Notes* Telephone Encounter - Colette Rivera RN - 04/30/2024 10:18 AM EDT Called pt to follow up on previous phone call and to make her aware that we sent a refill for her pre-medication yesterday at 1:31. Per pt, she has already re- scheduled her appointments for May andcherrie will call them to follow up on this. Pt aware to call our office if she has any further questions/concerns or if there is anything else needed from our office. * Telephone Encounter - Og Sol - 04/30/2024 9:13 AM EDT Pt calling in stating that the pharmacy never got the script for this medication. States she will need to reschedule tests. * Telephone Encounter - Danay Sanford - 04/29/2024 1:09 PM EDT Patient phoning in stating she is in need of Prednisone and Benedryl to be sent to [place], [place] for her imaging she is scheduled for tomorrow. documented in this encounter[facility]03-18-[facility]25 Telephone encounter Note* Telephone Encounter - Og Sol - 04/30/2024 9:13 AM EDT Pt calling in stating that the pharmacy never got the script for this medication. States she will need to reschedule tests. [facility]-17[facility] Telephone encounter Note* Telephone Encounter - Danay Sanford - 04/29/2024 1:09 PM EDT Patient phoning in stating she is in need of Prednisone and Benedryl to be sent to [facility] [place], [place] for her imaging she is scheduled for tomorrow. [facility] History of Present illness Narrative* Clint Diaz, FINANCIAL SERVICES MANAGER-TRUCK LEASING MANAGER - 03/20/2024 12:30 PM EST Images from the original note were not included. This telehealth visit is a real time audio/visual communication. During the scheduling process, this patient has verbally consented to the submission of Telehealth visits and the patient is aware of the risks, benefits, and possible coinsurance/copay costs. This visit is being conducted by real time video. Patient Location: Home Time to complete visit: 11-20 Minutes DX: metastatic NEC Ki67%: 5% Pathology: [facility] 09/2020 HISTORY OF PRESENT ILLNESS: Mary Jenkins is a 83 y.o. female who is diagnosed with metastatic neuroendocrine tumor. She comes here today for evaluation regarding diagnosis. She was in usual state of health until: 2015: Resection of parathyroid adenomas August 2020: Acute onset of abdominal pain and diarrhea. She was treated for diverticulitis. Diarrheaimproved, but continued with RUQ pain. September 25, 2020: Liver core biopsy: [facility] read: A. Liver mass, CT-guided core biopsy: Metastatic well-differentiated neuroendocrine tumor, G2 Immunohistochemical stain performed at outside hospital TTF 1 negative S100 negative CK7 negative CK20 negative Napsin a negative CD117 negative P 40 negative Pancytokeratin positive NSE positive CD56 positive Synaptophysin positive Chromogranin positive Henry 2 positive CDX2 positive CK8 positive Ki-67: 6% Comment: The immunohistochemical profile suggests a gastrointestinal primary. Clinical correlation is recommended. 10/13/2020: FDG PET: Increased FDG distrubution noted in the region of the proximal ascending colong. Liver does not uptake FDG. 10/2020: Sandostatin q 28 days 12/29/2020: MRI A/P: IMPRESSION: 1. Probable mass involving the distal/terminal ileum which may represent the primary site of the known neuroendocrine tumor. No upstream bowel distention. No mesenteric masses. 2. Multiple lesions within the liver consistent with metastatic disease. Dominant lesion in posterior left lobe. 3. No adenopathy in the abdomen or pelvis. 4. Status post hysterectomy and cholecystectomy. 03/08/2021: laparoscopic right colectomy: A. Right colon and terminal ileum, laparoscopic right hemicolectomy: Well-differentiated neuroendocrine tumor, grade 1,involving the terminal ileum, see synoptic report Surgical margins are negative for tumor Tumor is panmural and involves the serosa Extensive perineural invasion 20 benign lymph nodes (0/20) Immunohistochemical stains for chromogranin and synaptophysin are positive. Manual quantitative immunohistochemistry for Ki-67 is 0%. Zero mitoses were seen in 2 mm2. 03/22/21- left hepatic lobe TAE by Dr. Rush 05/31/2021: Right hepatic lobe TAE 06/16/2021: Venous doppler: +acute DVT of right tibioperoneal trunk, peroneal, soleus veins. 06/19/2021 CT C/A/P multiple lesions of decreased attenuation within the liver worrisome for metastatic disease including a 7 cm lesion within the posterior segment the right lobe of the liver. There is diffuse atherosclerotic calcification of the abdominal aorta, without a demonstrated aneurysm. 08/13/2021 MRI A/P IMPRESSION: 1. Status post right hemicolectomy involving the previously described mass within the distal/terminal ileum, compatible with patient's known history of neuroendocrine tumor. No evidence of recurrence within the resection bed. No discrete mesenteric masses. 2. Status post interval transarterial bland embolization of lesions in segment 2/3 which has decreased in size (now measuring 3.0 x 2.4 cm, previously 4.6 x 4.1 cm.) however demonstrates persistent peripheral arterial phase enhancement, suggestive of viable disease. 3. Status post interval transarterial bland embolization lesion in segment 7. No definite abnormal enhancement is identified. Interval development of likely posttreatment confluent necrotic collections in this region. 4. Additional previously indexed arterially enhancing lesions in segment 4A/5 are not significantly changed. 5. Focus of intrinsic T1 hyperintensity within the proximal common hepatic is suggestive of posttreatment hemobilia. No significant proximal intrahepatic biliary ductal dilation. Mild persistent prominence of the common bile duct could relate to postcholecystectomy ectasia. Chief Complaint Patient presents with Follow-up Neuroendocrine carcinoma metastatic to liver. Other Review 5-HIAA lab work Wearing a cpap at nightime now due to sleep apnea. Diarrhea Daily anywhere from 3-5 episodes. Takes imodium daily. INTERIM HISTORY: Mary Jenkins presents for a follow-up. She is doing okay overall. She is no longer on sandosatin due to various issues that arose and is not interested in restarting at this time. She continues to have diarrhea 3-5x / day, imodium is helpful in navigating these symptoms. She was diagnosed with PHTN. She has ongoing SOB and is working with pulmonology and cardiology on this concern. She recently started wearing a CPAP due to sleep apnea. 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 She currently walks with a walker. No other concerns. ECOG PS: 1 REVIEW OF SYSTEMS: A review of systems was performed with the patient at today's patient and is negative except for those items mentioned in the interval history and those items mentioned below as well as in the nursing documentation review of systems. Symptom Assessment Nausea: Absent or within normal limits Vomiting: Absent or within normal limits Anorexia: Absent or within normal limits Diarrhea: Increase of less than 4 stools per day over baseline OR mild increase in ostomy output compared to baseline Constipation: Absent or within normal limits Peripheral Motor Neuropathy: Absent or within normal limits Depression: Absent or within normal limits Mucositis (oral, pharyngeal): None Tinnitus: Mild symptoms OR intervention not indicated Dyspnea: Shortness of breath with moderate exertion Pain: Mild pain Fever: Absent or within normal limits Localized Edema: Absent or within normal limits Rash Maculo-Papular: Absent or within normal limits Palmar-Plantar Erythrodysesthesia Syndrome: Absent or within normal limits Urinary Symptoms?: No Performance Status: Restricted in physically strenuous activity but ambulatory and able to carry out work of a light or sedentary nature, e.g., light house work, office work Today's toxicity assessment reviewed with previous assessment?: yes Toxicity greater than or equal to GRADE 3?: no Provider Notified:: Clint Diaz Allergies Allergen Reactions Ivp Dye, Iodine Containing Anaphylaxis Takes prednisone & benadryl prior to CT scans as pre-meds Penicillin G Other reaction(s): Shortness of breath, edema Sandostatin [Octreotide] SOB, nausea, vomiting, resulted in hospitalization Concern with mixing administration protocol, not followed exactly, delyaed administration Outpatient Medications Prior to Visit Medication Sig Dispense Refill amLODIPine 5 MG tablet Take 1 tablet by mouth daily every morning. apixaban 5 MG tablet Take 1 tablet by mouth every 12 hours. Calcium Citrate-Vitamin D (CITRACAL + D PO) Take 1 tablet by mouth daily. cholecalciferol 50 MCG (2000 UT) capsule Take 1 capsule by mouth daily. OTC, gummy x 2 for dose Coenzyme Q10 (COQ10 PO) Take 200 mg by mouth daily. OTC Cyanocobalamin (B-12) 1000 MCG tablet Take by mouth daily. Gummy x2 for dose, OTC flecainide 100 MG tablet Take one tablet twice a day for heartbeat. hydroCHLOROthiazide 25 MG tablet Take 1 tablet by mouth daily. lisinopril 40 MG tablet Take 1 tablet by mouth daily every morning. Loperamide 2 MG capsule Take 1 capsule by mouth as needed for Diarrhea. 2 stat then 1 cap after each loose stool Magnesium 200 MG tablet Take 250 mg by mouth daily every morning. Magnesium Glycinate: OTC POTASSIUM CHLORIDE ER PO Take 20 mEq by mouth daily. Pyridoxine HCl (B-6 PO) Take 100 mg by mouth daily. risedronate 35 MG tablet Take 1 tablet by mouth every 7 days. Mondays Sertraline 100 MG tablet Take 1.5 tablets by mouth daily every morning. predniSONE & diphenhydrAMINE 3 x 50 MG & 1 x 50 MG Kit Take 1 kit by mouth As directed. Take 50 mg prednisone 13 & 7 hrs prior to scans. Take 50 mg benadryl & 50 mg prednisone 1 hour prior. Ok to split kit if needed (Patient not taking: Reported on 03/15/2024) 1 kit 3 predniSONE 50 MG tablet Take 1 tablet by mouth As directed. Prednisone 50mg 13 hours prior to Cath Prednisone 50mg 7 hours prior to Cath Prednisone 50mg 1 hours prior to Cath with diphenhydramine 50mg (Patient not taking: Reported on 03/15/2024) 3 tablet 0 No facility-administered medications prior to visit. Past Medical History: Diagnosis Date Arrhythmia atrial fibrillation Essential hypertension, benign History of cancer Hyperlipidemia DARON (obstructive sleep apnea) Pulmonary hypertension Rheumatic fever Past Surgical History: Procedure Laterality Date OCCLUSION/EMBOLIZATION ENDOVASCULAR TUMORS/ORGAN ISCHEMIA/INFARCTION N/A 05/31/2021 Laterality: N/A; Surgeon: Humberto Rush MD; Location: [facility] INTERVENTIONAL RADIOLOGY (VIR) OCCLUSION/EMBOLIZATION ENDOVASCULAR TUMORS/ORGAN ISCHEMIA/INFARCTION N/A 03/22/2021 Laterality: N/A; Surgeon: Humberto Rush MD; [facility] INTER[facility] (VIR) COLECTOMY PARTIAL LAPAROSCOPIC Right 03/08/2021 Laterality: Right; Surgeon: Rodrigo López MD; Location: [facility] MAIN OR PARATHYROIDECTOMY 2014 removed 2 nodules APPENDECTOMY BREAST LUMPECTOMY Left Benign per pt report; approximately age 41 CHOLECYSTECTOMY HEART CATHETERIZATION Nov 2023 HYSTERECTOMY KNEE SURGERY ORIF WRIST Left OTHER SURGICAL spine surgery for T8 fracture. Social History Tobacco Use Smoking status: Never Smokeless tobacco: Never Vaping Use Vaping status: Never Used Substance Use Topics Alcohol use: Not Currently Drug use: Never Family History Problem Relation Age of Onset Coronary Artery Disease Father Cancer- Other Paternal Uncle lip cancer Uterine Cancer Paternal Grandmother Thyroid Cancer Daughter 44 total thyroidectomy- follicular & papillary Breast Cancer Cousin Family Hx: Daughter has thyroid cancer Social Hx: no environmental exposures PHYSICAL EXAMINATION: Kept for historical purposes, due to nature of video visit unable to complete at this time. Patient is in no acute distress. Patient is alert, oriented to person, place and time. There were no vitals taken for this visit. HEENT: Head atraumatic, normocephalic. Gross vision intact. Eyes are nonicteric. Neck: supple, symmetrical Lungs: Clear to auscultation bilaterally. No rales or wheezing. Heart: Regular heart rate and rhythm. Abdomen: Soft, nontender, non distended, without palpable masses. Normoactive bowel sounds present. No liver or mass are palpable. Extremities: No edema Skin: Warm and dry with good skin turgor. No rash. Lymph nodes: No lymphadenopathy noted in left or right inguinal area Neurologic: No focal deficits, grossly intact. IMAGING STUDIES: Imaging results have been reviewed and discussed with the patient. LABS: Lab results have been reviewed and discussed with the patient. IMPRESSION & PLAN: Diagnosis: WD NET Ki-67 6% of primary likely ileum (FDG PET mesenteric uptake SUV 4.2) Date of Treatment: 10/2020: Sandostatin started. Symptom [place] at presentation: Diarrhea which improved on sandostatin. 03/08/2021: laparoscopic right hemicolectomy: A. Right colon and terminal ileum, laparoscopic right hemicolectomy: Well-differentiated neuroendocrine tumor, grade 1,involving the terminal ileum, see synoptic report Surgical margins are negative for tumor Tumor is panmural and involves the serosa Extensive perineural invasion 20 benign lymph nodes (0/20) Immunohistochemical stains for chromogranin and synaptophysin are positive. Manual quantitative immunohistochemistry for Ki-67 is 0%. Zero mitoses were seen in 2 mm2. 03/22/21- left hepatic TAE by Dr. Rush. 05/31/2021: Right hepatic. Tolerated well. 06/16/2021: Venous doppler: +acute DVT of right tibioperoneal trunk, peroneal, soleus veins 08/09 - Discontinued Sandostatin due to elevated LFTs, total bilirubin max of 8.6 Assessments Last Labs: 5-HIAA U24 mild elevation 16.5; CgA 381; Gastrin 881, mild hypokalemia 3.4; kidney function WNL, potassium 3.4 mildly low Last Scan: Stable Plan for today: - Overall, patient is doing well. We discussed that her chromogranin A and gastrin levels are elevated and that these are not specific findings. We will continue to monitor this lab work over time and look at trends along with scans and symptom burden. We provided reassurance to the patient today. Encouraged potassium in her diet as well as very mildly low. - Her kidney function looks good today and acute elevated numbers have improved - 5-HIAA 24 hour urine was very mild elevation at 16.5, essentially normal and not concerning, unlikely to be related to diarrhea. She is going to continue taking the imodium which she states has been very helpful to her. - We will continue to defer SSA treatments at this time at patient request. - RTC we will continue regular interval follow up every 4 months with labs and scans 1 week prior. This should be around mid-late April 2024 since last scans were December 2023. Options for the Future: PRRT, Afinitor, cabozantinib, or repeat TAE Other Diagnosis and Plans #DVT - started on 2.5 mg eliquis BID. Experienced RLE edema and pain which has now subsided. #HTN: She is working with her PCP on this issue Orders Placed This Encounter CT CHEST WITHOUT CONTRAST MRI ABDOMEN WITH AND WITHOUT CONTRAST CBC, EDIF, PLATELET COMPREHENSIVE METABOLIC PANEL LACTATE DEHYDROGENASE CHROMOGRANIN A GASTRIN - NON-STIMULATED The patient had many questions all that were answered to her satisfaction. She will contact the clinic with any questions or concerns. She understands and agrees to the plan. AMAIRANI Parson [facility] Preet Coburn [facility] and José Santoyo [facility] documented in this encounter[facility]02-05-2025 Instructions* Patient Instructions* AMAIRANI Aviles - 03/20/2024 12:30 PM EST Return to clinic: end of April 2024 with lab and scans [address] David Treatment: ongoing surveillance documented in this encounter[facility]01-31-2025 History of Present illness Narrative* Isis Prabhakar - 03/15/2024 11:00 AM EST Patient arrived via ambulatory with cane. Accompanied by family. Pt here to see Dr. Babin for follow up. Patient was knowledgeable of all their medications, and medication list was reconciled in [facility].. Allergies reviewed with pt. .Patient denies any chest pressure, pain, nausea or vomiting. No diaphoresis, dizziness, palpitations, headache or lightheadedness. No syncope, no dyspnea or worsening with exertion. SOB at times ans also today * SANDRA Toribio - 03/15/2024 11:00 AM EST Reason for consultation. Mary Jenkins is a 83 y.o. female with a long history of paroxysmal atrial fibrillation, hypertension, hyperlipidemia, recurrent DVT and metastatic neuroendocrine cancer. HPI Over the past few months she has noted exertional dyspnea and walking a few 100 yd going up even 1 flight of steps causes her significant shortness of breath. She denied orthopnea, paroxysmal nocturnal dyspnea, pedal edema and chest pain. She has noted frequent palpitations where she feels her heart race and this usually lasts a few minutes. She has not experienced lightheadedness, near- syncope or syncope. She typically has good functional capacity but as noted above activity has been limited by dyspnea. Interim history 03/15/24 She is feeling much better with significant improvement in dyspnea. No orthopnea, pedal edema, chest pain, palpitations, lightheadedness or syncope. 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 Past Medical History: Diagnosis Date Arrhythmia atrial fibrillation Essential hypertension, benign History of cancer Hyperlipidemia Pulmonary hypertension Rheumatic fever Allergies Allergen Reactions Ivp Dye, Iodine Containing Anaphylaxis Takes prednisone & benadryl prior to CT scans as pre-meds Penicillin G Other reaction(s): Shortness of breath, edema Sandostatin [Octreotide] SOB, nausea, vomiting, resulted in hospitalization Concern with mixing administration protocol, not followed exactly, delyaed administration Current Outpatient Medications Medication Sig Dispense Refill amLODIPine 5 MG tablet Take 1 tablet by mouth daily every morning. apixaban 5 MG tablet Take 1 tablet by mouth every 12 hours. Calcium Citrate-Vitamin D (CITRACAL + D PO) Take 1 tablet by mouth daily. cholecalciferol 50 MCG (2000 UT) capsule Take 1 capsule by mouth daily. OTC, gummy x 2 for dose Coenzyme Q10 (COQ10 PO) Take 200 mg by mouth daily. OTC Cyanocobalamin (B-12) 1000 MCG tablet Take by mouth daily. Gummy x2 for dose, OTC flecainide 100 MG tablet Take one tablet twice a day for heartbeat. hydroCHLOROthiazide 25 MG tablet Take 1 tablet by mouth daily. lisinopril 40 MG tablet Take 1 tablet by mouth daily every morning. Magnesium 200 MG tablet Take 250 mg by mouth daily every morning. Magnesium Glycinate: OTC POTASSIUM CHLORIDE ER PO Take 20 mEq by mouth daily. Pyridoxine HCl (B-6 PO) Take 100 mg by mouth daily. risedronate 35 MG tablet Take 1 tablet by mouth every 7 days. Mondays Sertraline 100 MG tablet Take 1.5 tablets by mouth daily every morning. predniSONE & diphenhydrAMINE 3 x 50 MG & 1 x 50 MG Kit Take 1 kit by mouth As directed. Take 50 mg prednisone 13 & 7 hrs prior to scans. Take 50 mg benadryl & 50 mg prednisone 1 hour prior. Ok to split kit if needed (Patient not taking: Reported on 03/15/2024) 1 kit 3 predniSONE 50 MG tablet Take 1 tablet by mouth As directed. Prednisone 50mg 13 hours prior to Cath Prednisone 50mg 7 hours prior to Cath Prednisone 50mg 1 hours prior to Cath with diphenhydramine 50mg (Patient not taking: Reported on 03/15/2024) 3 tablet 0 No current facility-administered medications for this visit. Family History Problem Relation Age of Onset Coronary Artery Disease Father Cancer- Other Paternal Uncle lip cancer Uterine Cancer Paternal Grandmother Thyroid Cancer Daughter 44 total thyroidectomy- follicular & papillary Breast Cancer Cousin Social History Socioeconomic History Marital status: Spouse name: Not on file Number of children: Not on file Years of education: Not on file Highest education level: Not on file Occupational History Not on file Tobacco Use Smoking status: Never Smokeless tobacco: Never Vaping Use Vaping status: Never Used Substance and Sexual Activity Alcohol use: Not Currently Drug use: Never Sexual activity: Not on file Other Topics Concern Not on file Social History Narrative Not on file Social Determinants of Health Financial Resource Strain: Not on file Food Insecurity: Food Insecurity Present (08/14/2023) Hunger Vital Sign Worried About Running Out of Food in the Last Year: Sometimes true Ran Out of Food in the Last Year: Sometimes true Transportation Needs: No Transportation Needs (08/14/2023) PRAPARE - Transportation Lack of Transportation (Medical): No Lack of Transportation (Non-Medical): No Physical Activity: Not on file Stress: Not on file Social Connections: Not on file Intimate Partner Violence: Not At Risk (08/14/2023) Humiliation, Afraid, Rape, and Kick questionnaire Fear of Current or Ex-Partner: No Emotionally Abused: No Physically Abused: No Sexually Abused: No Housing Stability: Low Risk (08/14/2023) Housing Stability Vital Sign Unable to Pay for Housing in the Last Year: No Number of Places Lived in the Last Year: 1 Unstable Housing in the Last Year: No REVIEW OF SYSTEMS ROS As in the history of present illness Rest of the review of systems was negative PHYSICAL EXAMINATION GENERAL APPEARANCE: Well developed, well nourished, in no acute distress. BP 118/62 (BP Location: Left arm, BP Position: Sitting) Pulse 66 Ht 1.524 m (5') Wt 65.6 kg (144 lb 9.6 oz) SpO2 97% BMI 28.24 kg/m Smoking Status Never HEENT: Sclerae anicteric and conjunctivae pink. NECK: Supple. No thyromegaly or lymphadenopathy. LUNGS: Air entry equal bilaterally with normal breath sounds. No adventitious sounds. CARDIOVASCULAR: The jugular venous pulse was not elevated. PMI was undisplaced. Rhythm was irregular. Normal first heart sound. Second heart sound is normally split. No gallop, murmur or rub was audible. Carotid pulses were normal bilaterally without any bruits. Carotid upstroke normal. EXTREMITIES: Warm and well perfused. No edema. NEUROLOGIC: Alert and oriented x 3. Normal mood and affect. DIAGNOSTIC DATA: Lab Results Component Value Date CHOLESTEROL 210 (H) 12/08/2023 TRIG 114 12/08/2023 HDL 62 12/08/2023 LDLCALC 125 (H) 12/08/2023 TTE OSH 09/2023 Normal LV function. EF 65% Normal RV size and function RVSP 33 mmHG. Stress MIBI 10/2023 Overall: No evidence of ischemia. Small apical anterior fixed defect consistent with prior infarct vs breast attenuation artifact. PAC's and short run of atrial tachycardia with vasodilator stress. Coronary artery and aortic calcification seen on CT portion. EKG 11/01/23 NSR, old anterior infarct MCT 10/2023 Normal sinus rhythm, NSVT (1 episode of 7 beats). EKG 11/28/2023 NSR, PACs, PVCs C 12/2023 Severe hypertension with SBP above 200 on arrival to the laborer rags and remained above 190 despite sedation. 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 ASSESSMENT/PLAN Paroxysmal atrial fibrillation, PSVT She experiences intermittent palpitations but recent MCT did not demonstrate AF. - continue flecainide (has been on this for years) - continue with Eliquis 5 mg b.i.d. (also has history of recurrent DVTs) Exertional dyspnea. This has improved significantly and clinically no evidence of cardiac decompensation. Non obstructive CAD. Recent left heart catheterization with no obstructive coronary artery disease (25% LAD lesion). She is not on statin due to concerns about liver function but recent LFTs have been normal and will consider resuming low dose statin HTN, Managed by PCP - continue amlodipine, HC TZ and lisinopril Follow up: 6 months [facility] Instructions* Patient Instructions* Isis Prabhakar - 03/15/2024 11:00 AM EST On behalf of the [facility] staff, it was a pleasure to see you today in clinic. We look forward to seeing you again in the future. Heart and Vascular [address] [facility] [id number] [facility] Option 3 for scheduling The nurse line is checked frequently Monday through Monday between 8:00 am and 4:00 pm. It is not checked after hours or on the weekend. Thank you. If needing urgent after-hours assistance for a cardiology reason that can not wait until the following business day: Please call [phone] Option 2 and follow the prompt Option 1 and ask for the cardiology fellowon call. Thank you. [facility] Telephone encounter Note* Telephone Encounter - AMAIRANI Hoyt - 02/28/2024 1:37 PM EST Ok to review on RTC Thanks Rahul [facility] Work Phone: [phone]) 504-674001-15-2025 Miscellaneous Notes* Telephone Encounter - AMAIRANI Hoyt - 02/28/2024 1:37 PM EST Ok to review on RTC Thanks Rahul * Telephone Encounter - Ruby Mantilla RN - 02/28/2024 9:39 AM EST Images from the original note were not included. Labs received into office, scanned to [facility]: * Telephone Encounter - Xiao Obrien RN - 02/21/2024 2:06 PM EST Contacted patient and inquired if local lab work was completed. Patient has not completed lab work at this time. Patient utilizes [facility] for labs but will be unable to complete prior to telehealth visit tomorrow (02/22/24) at 9am. * Telephone Encounter - Ruby Mantilla RN - 02/21/2024 2:00 PM EST ----- Message from AMAIRANI Parson sent at 02/21/2024 1:45 PM EST ----- Regarding: Local lab work Hello! Can we see if Mary go her local lab work done prior to tomorrow's visit? Thank you - Clint [facility] Telephone encounter Note* Telephone Encounter - Ruby Mantilla RN - 02/28/2024 9:39 AM EST Images from the original note were not included. Labs received into office, scanned to [facility]: [facility]-14-[facility] Telephone encounter Note* Telephone Encounter - Selina Ortiz RN - 02/27/2024 1:38 PM EST UPDATE: please cancel patient's appointment on 02/28 with Clint Diaz. Please re-schedule to at 1 pm with Clint Diaz CNP as telemedicine video visit. Pt has already been called and is aware of changes. Thank you [facility]01-14-2025 Miscellaneous Notes* Telephone Encounter - Selina Ortiz RN - 02/27/2024 1:38 PM EST UPDATE: please cancel patient's appointment on 02/28 with Clint Diaz. Please re-schedule to at 1 pm with Clint Diaz TRUCK LEASING MANAGER as telemedicine video visit. Pt has already been called and is aware of changes. Thank you * Telephone Encounter - Danay Sanford - 02/26/2024 4:38 PM EST Called patient x 1 to reschedule 02/29/2024 appt with Clint to next week (03/06 or 03/07). No answer. Left VM to return call to R/S. [facility] Telephone encounter Note* Telephone Encounter - Danay Sanford - 02/26/2024 4:38 PM EST Called patient x 1 to reschedule 02/29/2024 appt with Clint to next week (03/06 or 03/07). No answer. Left VM to return call to R/S. [facility]01-08-2025 Telephone encounter Note* Telephone Encounter - Xiao Obrien RN - 02/21/2024 2:06 PM EST Contacted patient and inquired if local lab work was completed. Patient has not completed lab work at this time. Patient utilizes [facility] for labs but will be unable to complete prior to telehealth visit tomorrow (02/22/24) at 9am. [facility]01-08-2025 Miscellaneous Notes* Telephone Encounter - Xiao Obrien RN - 02/21/2024 2:06 PM EST Contacted patient and inquired if local lab work was completed. Patient has not completed lab work at this time. Patient utilizes [facility] for labs but will be unable to complete prior to telehealth visit tomorrow (02/22/24) at 9am. * Telephone Encounter - Ruby Mantilla RN - 02/21/2024 2:00 PM EST ----- Message from AMAIRANI Parson sent at 02/21/2024 1:45 PM EST ----- Regarding: Local lab work Hello! Can we see if Mary go her local lab work done prior to tomorrow's visit? Thank you - Clint [facility] Telephone encounter Note* Telephone Encounter - Ruby Mantilla RN - 02/21/2024 2:00 PM EST ----- Message from AMAIRANI Parson sent at 02/21/2024 1:45 PM EST ----- Regarding: Local lab work Hello! Can we see if Mary go her local lab work done prior to tomorrow's visit? Thank you - Clint [facility]11-27-2024 History of Present illness Narrative* Radha Carmona PA-C - 01/10/2024 12:00 PM EST CC: Thyroid nodules History of Present Illness: Mary Jenkins is a 83 y.o. female who presents to the Endocrine clinic for the follow up of thyroid nodules. She has a history of neuroendocrine tumor, diagnosed in 2020, treated with Sandostatin q 28 days. She also underwent resection of parathyroid adenomas in 2014. She was told about small thyroid nodules during her evaluation for parathyroid adenomas. 11/18/2022 thyroid US showed a right mid 8 mm nodule TR3 and left mid 7 mm nodule TR2. 04/20/2023 thyroid US showed in the right thyroid lobe a mixed solid cystic hypoechoic nodule measuring approximately 11 x 8 x 7 mm without echogenic foci (TR3) and a subcentimeter prominently cystic nodule in the left lobe without suspicious features. Interval History: The patient states she last took Sandostatin in 07/2023. States she stopped it because of side effects. She saw [facility] med onc today. She denies neck pain, new neck masses, dyspnea, dysphagia, and changes in voice. Meds: she is not on thyroid medication Labs: Date TSH 09/2022 1.408 Thyroid Cancer Risk Factors: Family history of thyroid disorders, including cancer: daughter has papillary and follicular thyroid carcinoma History of neck irradiation: negative Review of Systems: As noted in the history above Physical Exam: Vitals: 01/10/24 1030 BP: 129/61 Pulse: 65 Resp: 14 Temp: 97.2 degrees F (36.2 degrees C) TempSrc: Infrared SpO2: 97% Weight: 67.1 kg (147 lb 14.9 oz) Height: 1.524 m (5') Body mass index is 28.89 kg/m . Constitutional: Well-developed, overweight, in no acute distress Neck: No discrete masses or enlarged lymph nodes noted with palpation of anterior neck and supraclavicular regions Cardiovascular: Regular rate and rhythm, radial pulses 2+ Respiratory: Respirations unlabored on room air, lungs CTA Musculoskeletal: Normal range of motion, normal tone Neurological: Alert, oriented Integumentary (Skin): Skin warm, no thinning Psychiatric: Mood appropriate, good eye contact Imaging: See separate note regarding neck US performed today All of the above documented by Radha Carmona PA-C. Impression and plan below by Dr. Esme Perez. ATTENDING ATTESTATION I have personally seen, interviewed and examined this patient independently of Radha Carmona PA-C. The plan was developed mutually at the time of the clinic visit. Radha and I spoke with the patient and provided written and verbal instructions for the patient. The above note has been reviewed and edited by me as appropriate and I wrote the assessment and plan. Follow-up arrangements were made prior to the patient being discharged from the clinic. Assessment / Impression & Plan: Mary Jenkins is a 83 y.o. female who was diagnosed with neuroendocrine tumor in 2020 presented for the follow up of thyroid nodules. She underwent thyroid US in 11/2022 demonstrating two small nodules bilaterally. She reports thyroid nodules were first noted at the time of the work up for parathyroid disease. I performed thyroid US and reviewed images with the patient. There are small mixed bilateral nodules, the largest nodule in the right lobe measures about 1 cm. She has no neck symptoms. She has an outside endocrinology who has been ordering thyroid US for her. Discussed she can continue to follow with her local endocrinology. She does not need FNA of the thyroid nodule. Given stable ultrasound findings recommended to repeat thyroid US in 3 years. Esme Perez MD Exchange Engineersteam engineer Department of Internal Medicine Division of Endocrinology, Diabetes and Metabolism [facility] * Bettye Allison RN - 01/10/2024 12:00 PM EST Contacted [facility] for images of thyroid US completed April,. Images received and nominatedsofya Salazar. documented in this [facility]11-27-[facility]24 Instructions* Patient Instructions* Bettye Allison RN - 01/10/2024 12:00 PM EST RTC in 3 years (call [phone], option 2 to schedule) documented in this [facility]11-27-2024 Procedure note* Esme Perez MD - 01/10/2024 12:00 PM ESTAssociated Order(s): CHG US SOFT TISSUE HEAD & NECK REAL TIME IMGE DOCM THYROID ULTRASOUND: Thyroid Ultrasound Note Real-time, grayscale ultrasound evaluation of the neck was performed at the bedside in transverse and longitudinal orientations using a high-resolution linear array transducer. Color Doppler was utilized to assess vascular flow. Echotexture of the thyroid gland is homogeneous. ISTHMUS: Isthmus is normal in size. RIGHT LOBE: The right lobe of the thyroid is normal in size. There is a isoechoic solid and cystic nodule located at mid pole measuring 0.7 x 0.8 x 1.0 cm. There is no calcification or border irregularities. There are additional smaller cystic nodules at the upper pole. LEFT LOBE: The left lobe of the thyroid is normal in size. There is a isoechoic mixed nodule located at upper pole measuring 0.3 x 0.4 x 0.7 cm. There is no calcification or border irregularities. LYMPH NODES: The neck was examined for nodes bilaterally. Several benign appearing lymph nodes wereidentified along the jugular veins bilaterally. [facility]11-27-2024 Procedure note* Esme Perez MD - 01/10/2024 12:00 PM ESTAssociated Order(s): CHG US SOFT TISSUE HEAD & NECK REAL TIME [facility] DOCM THYROID ULTRASOUND: Thyroid Ultrasound Note Real-time, grayscale ultrasound evaluation of the neck was performed at the bedside in transverse and longitudinal orientations using a high-resolution linear array transducer. Color Doppler was utilized to assess vascular flow. Echotexture of the thyroid gland is homogeneous. ISTHMUS: Isthmus is normal in size. RIGHT LOBE: The right lobe of the thyroid is normal in size. There is a isoechoic solid and cystic nodule located at mid pole measuring 0.7 x 0.8 x 1.0 cm. There is no calcification or border irregularities. There are additional smaller cystic nodules at the upper pole. LEFT LOBE: The left lobe of the thyroid is normal in size. There is a isoechoic mixed nodule located at upper pole measuring 0.3 x 0.4 x 0.7 cm. There is no calcification or border irregularities. LYMPH NODES: The neck was examined for nodes bilaterally. Several benign appearing lymph nodes wereidentified along the jugular veins bilaterally. [facility] History of Present illness Narrative* Clint Benavides Emily, FINANCIAL SERVICES MANAGER-TRUCK LEASING MANAGER - 01/10/2024 10:30 AM EST Images from the original note were not included. DX: metastatic NEC Ki67%: 5% Pathology: [facility] 09/2020 HISTORY OF PRESENT ILLNESS: Mary Jenkins is a 83 y.o. female who is diagnosed with metastatic neuroendocrine tumor. She comes here today for evaluation regarding diagnosis. She was in usual state of health until: 2014: Resection of parathyroid adenomas August 2020: Acute onset of abdominal pain and diarrhea. She was treated for diverticulitis. Diarrheaimproved, but continued with RUQ pain. September 25, 2020: Liver core biopsy: [facility] read: A. Liver mass, CT-guided core biopsy: Metastatic well-differentiated neuroendocrine tumor, G2 Immunohistochemical stain performed at outside hospital TTF 1 negative S100 negative CK7 negative CK20 negative Napsin a negative CD117 negative P 40 negative Pancytokeratin positive NSE positive CD56 positive Synaptophysin positive Chromogranin positive Henry 2 positive CDX2 positive CK8 positive Ki-67: 6% Comment: The immunohistochemical profile suggests a gastrointestinal primary. Clinical correlation is recommended. 10/13/2020: FDG PET: Increased FDG distrubution noted in the region of the proximal ascending colong. Liver does not uptake FDG. 10/2020: Sandostatin q 28 days 12/29/2020: MRI A/P: IMPRESSION: 1. Probable mass involving the distal/terminal ileum which may represent the primary site of the known neuroendocrine tumor. No upstream bowel distention. No mesenteric masses. 2. Multiple lesions within the liver consistent with metastatic disease. Dominant lesion in posterior left lobe. 3. No adenopathy in the abdomen or pelvis. 4. Status post hysterectomy and cholecystectomy. 03/08/2021: laparoscopic right colectomy: A. Right colon and terminal ileum, laparoscopic right hemicolectomy: Well-differentiated neuroendocrine tumor, grade 1,involving the terminal ileum, see synoptic report Surgical margins are negative for tumor Tumor is panmural and involves the serosa Extensive perineural invasion 20 benign lymph nodes (0/20) Immunohistochemical stains for chromogranin and synaptophysin are positive. Manual quantitative immunohistochemistry for Ki-67 is 0%. Zero mitoses were seen in 2 mm2. 03/22/21- left hepatic lobe TAE by Dr. Rush 05/31/2021: Right hepatic lobe TAE 06/16/2021: Venous doppler: +acute DVT of right tibioperoneal trunk, peroneal, soleus veins. 06/19/2021 CT C/A/P multiple lesions of decreased attenuation within the liver worrisome for metastatic disease including a 7 cm lesion within the posterior segment the right lobe of the liver. There is diffuse atherosclerotic calcification of the abdominal aorta, without a demonstrated aneurysm. 08/13/2021 MRI A/P IMPRESSION: 1. Status post right hemicolectomy involving the previously described mass within the distal/terminal ileum, compatible with patient's known history of neuroendocrine tumor. No evidence of recurrence within the resection bed. No discrete mesenteric masses. 2. Status post interval transarterial bland embolization of lesions in segment 2/3 which has decreased in size (now measuring 3.0 x 2.4 cm, previously 4.6 x 4.1 cm.) however demonstrates persistent peripheral arterial phase enhancement, suggestive of viable disease. 3. Status post interval transarterial bland embolization lesion in segment 7. No definite abnormal enhancement is identified. Interval development of likely posttreatment confluent necrotic collections in this region. 4. Additional previously indexed arterially enhancing lesions in segment 4A/5 are not significantly changed. 5. Focus of intrinsic T1 hyperintensity within the proximal common hepatic is suggestive of posttreatment hemobilia. No significant proximal intrahepatic biliary ductal dilation. Mild persistent prominence of the common bile duct could relate to postcholecystectomy ectasia. Chief Complaint Patient presents with Follow-up NEC- 4 month follow up. Off SSA since August, d/t reaction. Had been receiving locally. Concerned with elevated Chrom A and Gastrin levels. Local oncologist concerned that she is not on any treatment for the elevated Chrom A. Other Following with pulmonary team due to SOB. Had sleep study completed this past week. Pain Back and hip pain severe and constant for the past couple of months. Pain is at rest and severe with activity, pain is bad enough to tears at times. Using a cane to walk now. Diarrhea Has diarrhea every day 3-4 times per day. Taking immodium. INTERIM HISTORY: Mary Jenkins presents for a follow-up. She is doing okay overall. She is no longer on sandosatin due to various issues that arose and is not interested in restarting at this time. She continues to have diarrhea 3-4x / day, imodium is helpful in navigating these symptoms. She was diagnosed with PHTN. She has ongoing SOB and is working with pulmonology and cardiology on this concern. 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 She currently walks wth a walker.She was navigating HTN, recently added Hydrochlorothiazide to help with her BP. She is normotensivein clinic today. No other concerns. ECOG PS: 1 REVIEW OF SYSTEMS: A review of systems was performed with the patient at today's patient and is negative except for those items mentioned in the interval history and those items mentioned below as well as in the nursing documentation review of systems. Symptom Assessment Nausea: Absent or within normal limits Vomiting: Absent or within normal limits Anorexia: Absent or within normal limits Diarrhea: Increase of less than 4 stools per day over baseline OR mild increase in ostomy output compared to baseline Constipation: Absent or within normal limits Peripheral Motor Neuropathy: Asymptomatic OR clinical or diagnostic observations only (hands at times due to torn rotator cuff) Depression: Absent or within normal limits Mucositis (oral, pharyngeal): Mild Tinnitus: Mild symptoms OR intervention not indicated Dyspnea: Shortness of breath with moderate exertion Pain: Moderate pain OR limiting instrumental ADL Fever: Absent or within normal limits Localized Edema: Absent or within normal limits Rash Maculo-Papular: Absent or within normal limits Palmar-Plantar Erythrodysesthesia Syndrome: Absent or within normal limits Urinary Symptoms?: No Performance Status: Restricted in physically strenuous activity but ambulatory and able to carry out work of a light or sedentary nature, e.g., light house work, office work Today's toxicity assessment reviewed with previous assessment?: yes Toxicity greater than or equal to GRADE 3?: no Provider Notified:: Clint Diaz CNP Allergies Allergen Reactions Ivp Dye, Iodine Containing Anaphylaxis Takes prednisone & benadryl prior to CT scans as pre-meds Penicillin G Other reaction(s): Shortness of breath, edema Sandostatin [Octreotide] SOB, nausea, vomiting, resulted in hospitalization Concern with mixing administration protocol, not followed exactly, delyaed administration Outpatient Medications Prior to Visit Medication Sig Dispense Refill amLODIPine 5 MG tablet Take 1 tablet by mouth daily every morning. apixaban 5 MG tablet Take 1 tablet by mouth every 12 hours. Calcium Citrate-Vitamin D (CITRACAL + D PO) Take 1 tablet by mouth daily. cholecalciferol 50 MCG (2000 UT) capsule Take 1 capsule by mouth daily. OTC, gummy x 2 for dose Coenzyme Q10 (COQ10 PO) Take 200 mg by mouth daily. OTC Cyanocobalamin (B-12) 1000 MCG tablet Take by mouth daily. Gummy x2 for dose, OTC flecainide 100 MG tablet Take one tablet twice a day for heartbeat. hydroCHLOROthiazide 25 MG tablet Take 1 tablet by mouth daily. lisinopril 40 MG tablet Take 1 tablet by mouth daily every morning. Magnesium 200 MG tablet Take 250 mg by mouth daily every morning. Magnesium Glycinate: OTC POTASSIUM CHLORIDE ER PO Take 20 mEq by mouth daily. Pyridoxine HCl (B-6 PO) Take 100 mg by mouth daily. risedronate 35 MG tablet Take 1 tablet by mouth every 7 days. Mondays Sertraline 100 MG tablet Take 1.5 tablets by mouth daily every morning. predniSONE & diphenhydrAMINE 3 x 50 MG & 1 x 50 MG Kit Take 1 kit by mouth As directed. Take 50 mg prednisone 13 & 7 hrs prior to scans. Take 50 mg benadryl & 50 mg prednisone 1 hour prior. Ok to split kit if needed 1 kit 3 predniSONE 50 MG tablet Take 1 tablet by mouth As directed. Prednisone 50mg 13 hours prior to Cath Prednisone 50mg 7 hours prior to Cath Prednisone 50mg 1 hours prior to Cath with diphenhydramine 50mg 3 tablet 0 No facility-administered medications prior to visit. Past Medical History: Diagnosis Date Arrhythmia atrial fibrillation Essential hypertension, benign History of cancer Hyperlipidemia Pulmonary hypertension Rheumatic fever Past Surgical History: Procedure Laterality Date OCCLUSION/EMBOLIZATION ENDOVASCULAR TUMORS/ORGAN ISCHEMIA/INFARCTION N/A 05/31/2021 Laterality: N/A; Surgeon: Humberto Rush MD; Location: [facility] INTERVENTIONAL RADIOLOGY (VIR) OCCLUSION/EMBOLIZATION ENDOVASCULAR TUMORS/ORGAN ISCHEMIA/INFARCTION N/A 03/22/2021 Laterality: N/A; Surgeon: Humberto Rush MD; [facility] COLECTOMY PARTIAL LAPAROSCOPIC Right 03/08/2021 Laterality: Right; Surgeon: Rodrigo López MD; Location: [facility] MAIN OR PARATHYROIDECTOMY 2014 removed 2 nodules APPENDECTOMY BREAST LUMPECTOMY Left Benign per pt report; approximately age 41 CHOLECYSTECTOMY HEART CATHETERIZATION Nov 2023 HYSTERECTOMY KNEE SURGERY ORIF WRIST Left OTHER SURGICAL spine surgery for T8 fracture. Social History Tobacco Use Smoking status: Never Smokeless tobacco: Never Vaping Use Vaping status: Never Used Substance Use Topics Alcohol use: Not Currently Drug use: Never Family History Problem Relation Age of Onset Coronary Artery Disease Father Cancer- Other Paternal Uncle lip cancer Uterine Cancer Paternal Grandmother Thyroid Cancer Daughter 44 total thyroidectomy- follicular & papillary Breast Cancer Cousin Family Hx: Daughter has thyroid cancer Social Hx: no environmental exposures PHYSICAL EXAMINATION: Patient is in no acute distress. Patient is alert, oriented to person, place and time. Blood pressure 129/61, pulse 65, temperature 97.2 F (36.2 C), temperature source Infrared,resp. rate 14, height 1.524 m (5'), weight 67.1 kg (147 lb 14.4 oz), SpO2 97%. HEENT: Head atraumatic, normocephalic. Gross vision intact. Eyes are nonicteric. Neck: supple, symmetrical Lungs: Clear to auscultation bilaterally. No rales or wheezing. Heart: Regular heart rate and rhythm. Abdomen: Soft, nontender, non distended, without palpable masses. Normoactive bowel sounds present. No liver ormass are palpable. Extremities: No edema Skin: Warm and dry with good skin turgor. No rash. Lymph nodes: No lymphadenopathy noted in left or right inguinal area Neurologic: No focal deficits, grosslyintact. IMAGING STUDIES: Imaging results have been reviewed and discussed with the patient. LABS: Lab results have been reviewed and discussed with the patient. IMPRESSION & PLAN: Diagnosis: WD NET Ki-67 6% of primary likely ileum (FDG PET mesenteric uptake SUV 4.2) Date of Treatment: 10/2020: Sandostatin started. Symptom [place] at presentation: Diarrhea which improved on sandostatin. 03/08/2021: laparoscopic right hemicolectomy: A. Right colon and terminal ileum, laparoscopic right hemicolectomy: Well-differentiated neuroendocrine tumor, grade 1,involving the terminal ileum, see synoptic report Surgical margins are negative for tumor Tumor is panmural and involves the serosa Extensive perineural invasion 20 benign lymph nodes (0/20) Immunohistochemical stains for chromogranin and synaptophysin are positive. Manual quantitative immunohistochemistry for Ki-67 is 0%. Zero mitoses were seen in 2 mm2. 03/22/21- left hepatic TAE by Dr. Rush. 05/31/2021: Right hepatic. Tolerated well. 06/16/2021: Venous doppler: +acute DVT of right tibioperoneal trunk, peroneal, soleus veins 08/09 - Discontinued Sandostatin due to elevated LFTs, total bilirubin max of 8.6 Assessments Last Labs: Mildly elevated BUN, jump in creatinine although still WNL, slightly decreased GFR; CgA and gastrin elevated Last Scan: Stable Plan for today: - Overall, patient is doing okay. Her CgA and gastrin levels are elevated, but her symptoms are stable and her imaging is stable. She did have some impaired kidney function, recent hypertension and heart cath. Given the isolated nature of this lab work, I would like to repeat labs in 4-6 weeks and see if improved hydration and normotensive stability helps to decrease her CgA and gastrin levels. We also discussed getting the 5-HIAA lab work completed, which she is going to do, to see if the diarrhea is related to carcinoid syndrome. - We will continue to defer SSA treatments at this time at patient request. - RTC 6 weeks with video visit with Clint after completing local lab work. If lab work improves, wewill continue regular interval follow up in 4 months with labs and scans 1 week prior. If lab work continues to be elevated, we can consider a PET scan at that time. Options for the Future: PRRT, Afinitor, cabozantinib, or repeat TAE, Other Diagnosis and Plans #DVT - started on 2.5 mg eliquis BID. Experienced RLE edema and pain which has now subsided. #HTN: Normotensive today in clinic. She is working with her PCP on this issue and recently added hydrochlorothiazide. No orders of the defined types were placed in this encounter. The patient had many questions all that were answered to her satisfaction. She will contact the clinic with any questions or concerns. She understands and agrees to the plan. Clint Diaz APRN-[facility] Neuroendocrine/Thyroid Tumor Program [facility] Preet Coburn [facility] documented in this [facility]11-27-2024 Instructions* Patient Instructions* AMAIRANI Aviles - 01/10/2024 10:30 AM EST Video visit with Clint in 6 weeks after lab work is repeated locally to discuss SOB, back problems,and repeat lab work Plan for Mary: - Follow up with Ortho locally for injections or medication for your back and hip - Follow up locally with cardiology / pulmonology about the shortness of breath - Please get your urine 5-HIAA done locally at your convenience - Please hydrate well and keep your blood pressure well controlled by continuing to take your bloodpressure medications and getting regular activity and healthy diet, stress regulation - Please get your lab work repeated in about 5 weeks [facility] Nurse Note* Nursing Notes - Laurel Melgar RN - 12/15/2023 12:38 PM EDT Pt. Up to walk to restroom and returned to bed. Right groin site assessed by Doug Holguin, no hematoma,pain, soft to palpate no bleeding noted. Right radial site assessed by DOUG Holguin no bleeding, hematoma, pain noted. Pt. Informed to dress for discharge to home. [facility]11-01-2024 Miscellaneous Notes* Nursing Notes - Laurel Melgar RN - 12/15/2023 12:38 PM EDT Pt. Up to walk to restroom and returned to bed. Right groin site assessed by Doug Holguin, no hematoma,pain, soft to palpate no bleeding noted. Right radial site assessed by DOUG Holguin no bleeding, hematoma, pain noted. Pt. Informed to dress for discharge to home. documented in this [facility]Prem[facility]11-[facility] History and physical note* Ingrid Hernandez Chalo, FINANCIAL SERVICES MANAGER-TRUCK LEASING MANAGER - 12/15/2023 8:33 AM EDT HISTORY AND PHYSICAL UPDATE Pre-op Diagnoses: Abnormal stress test Procedure(s): SCHED CATHETERIZATION HEART CORONARY ANGIOGRAM W/ OR W/O LV ANGIO Surgeon(s): Surgeons and Role: * Fifi Concepcion MD - Primary History and Physical Update: Blood pressure 181/90, temperature 97.5 F (36.4 C), temperature source Tympanic, resp. rate 18, height 1.524 m (5'), weight 68.9 kg (152 lb), SpO2 98%. I have reviewed this patient's medical, surgical and other pertinent history, and I have updated the medication and allergy information in the computerized patient record. I have examined the patient, reviewed the previous H&P completed on date (12/08/2023) and thereare no changes. Past Medical and Surgical History: Past Medical History: Diagnosis Date Arrhythmia atrial fibrillation Essential hypertension, benign History of cancer Hyperlipidemia Rheumatic fever Past Surgical History: Procedure Laterality Date OCCLUSION/EMBOLIZATION ENDOVASCULAR TUMORS/ORGAN ISCHEMIA/INFARCTION N/A 05/31/2021 Laterality: N/A; Surgeon: Humberto Rush MD; Location: [facility] INTERVENTIONAL RADIOLOGY (VIR) OCCLUSION/EMBOLIZATION ENDOVASCULAR TUMORS/ORGAN ISCHEMIA/INFARCTION N/A 03/22/2021 Laterality: N/A; Surgeon: Humberto Rush MD; Location: [facility] INTERVENTIONAL RADIOLOGY (VIR) COLECTOMY PARTIAL LAPAROSCOPIC Right 03/08/2021 Laterality: Right; Surgeon: Rodrigo López MD; Location: [facility] MAIN OR PARATHYROIDECTOMY 2014 removed 2 nodules APPENDECTOMY BREAST LUMPECTOMY Left Benign per pt report; approximately age 41 CHOLECYSTECTOMY HYSTERECTOMY KNEE SURGERY ORIF WRIST Left OTHER SURGICAL spine surgery for T8 fracture. Review of Systems: All other systems are negative except as noted above Procedure type: Left Heart Catheterization Procedure Indication: Abnormal stress test Procedure status: Elective: OP procedure or during subsequent hospitalization without significant risk of ND or . For stable inpatients, the procedure is being performed during this hospitalization for convenience and ease of scheduling and NOT because the patient's clinical situation demands the procedure prior to discharge. The following co morbid conditions and risk factors were identified: Abnormal stress test (11/06/23): No evidence of ischemia. Small apical anterior fixed defect consistent with prior infarct vs breast attenuation artifact. PAC's and short run of atrial tachycardia with vasodilator stress. Coronary artery and aortic calcification seen on CT portion. CAC on CT chest (03/24/2023) Clinical Frailty Scale: 3 Hyperlipidemia: statin discontinued 2/2 elevated LFTs Obesity (BMI > 30) : Body mass index is 29.69 kg/m . Hypertension: on Amlodipine/Lisinopril Paroxsymal atrial fibrillation: on Flecainide and Eliquis Coagulopathy (Iatrogenic) - on Eliquis - last dose TAKEN Monday12/12/2023 Hx of metastatic neuroendocrine CA s/p right hemicolectomy: on Sandostatin Hx of contrast allergy: pre treatment with Prednisone 50 mg x 3 doses AMAIRANI Rain Interventional Cardiology Nurse Practitioner [facility] Phone: [phone] [facility] Work Phone: 1(318) 941-922811-01-2024 History and physical note* AMAIRANI Rain - 12/15/2023 8:33 AM EDT HISTORY AND PHYSICAL UPDATE Pre-op Diagnoses: Abnormal stress test Procedure(s): SCHED CATHETERIZATION HEART CORONARY ANGIOGRAM W/ OR W/O LV ANGIO Surgeon(s): Surgeons and Role: * Fifi Concepcion MD - Primary History and Physical Update: Blood pressure 181/90, temperature 97.5 F (36.4 C), temperature source Tympanic, resp. rate 18, height 1.524 m (5'), weight 68.9 kg (152 lb), SpO2 98%. I have reviewed this patient's medical, surgical and other pertinent history, and I have updated the medication and allergy information in the computerized patient record. I have examined the patient, reviewed the previous H&P completed on date (12/08/2023) and thereare no changes. Past Medical and Surgical History: Past Medical History: Diagnosis Date Arrhythmia atrial fibrillation Essential hypertension, benign History of cancer Hyperlipidemia Rheumatic fever Past Surgical History: Procedure Laterality Date OCCLUSION/EMBOLIZATION ENDOVASCULAR TUMORS/ORGAN ISCHEMIA/INFARCTION N/A 05/31/2021 Laterality: N/A; Surgeon: Humberto Rush MD; [facility] INTER[facility] (VIR) OCCLUSION/EMBOLIZATION ENDOVASCULAR TUMORS/ORGAN ISCHEMIA/INFARCTION N/A 03/22/2021 Laterality: N/A; Surgeon: Humberto Rush MD; Location: [facility] INTERVENTIONAL RADIOLOGY (VIR) COLECTOMY PARTIAL LAPAROSCOPIC Right 03/08/2021 Laterality: Right; Surgeon: Rodrigo López MD; Location: [facility] MAIN OR PARATHYROIDECTOMY 2014 removed 2 nodules APPENDECTOMY BREAST LUMPECTOMY Left Benign per pt report; approximately age 41 CHOLECYSTECTOMY HYSTERECTOMY KNEE SURGERY ORIF WRIST Left OTHER SURGICAL spine surgery for T8 fracture. Review of Systems: All other systems are negative except as noted above Procedure type: Left Heart Catheterization Procedure Indication: Abnormal stress test Procedure status: Elective: OP procedure or during subsequent hospitalization without significant risk of ND or . For stable inpatients, the procedure is being performed during this hospitalization for convenience and ease of scheduling and NOT because the patient's clinical situation demands the procedure prior to discharge. The following co morbid conditions and risk factors were identified: Abnormal stress test (11/06/23): No evidence of ischemia. Small apical anterior fixed defect consistent with prior infarct vs breast attenuation artifact. PAC's and short run of atrial tachycardia with vasodilator stress. Coronary artery and aortic calcification seen on CT portion. CAC on CT chest (03/24/2023) Clinical Frailty Scale: 3 Hyperlipidemia: statin discontinued 2/2 elevated LFTs Obesity (BMI > 30) : Body mass index is 29.69 kg/m . Hypertension: on Amlodipine/Lisinopril Paroxsymal atrial fibrillation: on Flecainide and Eliquis Coagulopathy (Iatrogenic) - on Eliquis - last dose TAKEN Monday12/12/2023 Hx of metastatic neuroendocrine CA s/p right hemicolectomy: on Sandostatin Hx of contrast allergy: pre treatment with Prednisone 50 mg x 3 doses Ingrid Isabel APRN-TRUCK LEASING MANAGER Interventional Cardiology Nurse Practitioner [facility] Phone: [phone] documented in this [facility]Prem[facility] History of Present illness Narrative* Sandy Anguiano RN - 12/08/2023 11:00 AM EDT Patient arrived via Ambulatory. Accompanied by family. Pt here to see Dr. Babin for follow-up. Medications and allergies reviewed. Patient denies any chest pressure, pain, nausea or vomiting. No diaphoresis, dizziness, headache orlightheadedness. No syncope. Occasional palpitations. Shortness of breathe with exertion/ running the sweeper. Dinamap- 169/78 Manual- 142/86 * SANDRA Toribio - 12/08/2023 11:00 AM EDT Reason for consultation. Mary Jenkins is a 83 y.o. female with a long history of paroxysmal atrial fibrillation, hypertension, hyperlipidemia, recurrent DVT and metastatic neuroendocrine cancer. HPI Over the past few months she has noted exertional dyspnea and walking a few 100 yd going up even 1 flight of steps causes her significant shortness of breath. She denied orthopnea, paroxysmal nocturnal dyspnea, pedal edema and chest pain. She has noted frequent palpitations where she feels her heart race and this usually lasts a few minutes. She has not experienced lightheadedness, near- syncope or syncope. She typically has good functional capacity but as noted above activity has been limited by dyspnea. Interim history. She still has significant exertional dyspnea but no orthopnea or pedal edema. Past Medical History: Diagnosis Date Arrhythmia atrial fibrillation Essential hypertension, benign History of cancer Hyperlipidemia Rheumatic fever Allergies Allergen Reactions Ivp Dye, Iodine Containing Anaphylaxis Takes prednisone & benadryl prior to CT scans as pre-meds Penicillin G Other reaction(s): Shortness of breath, edema Sandostatin [Octreotide] SOB, nausea, vomiting, resulted in hospitalization Concern with mixing administration protocol, not followed exactly, delyaed administration Current Outpatient Medications Medication Sig Dispense Refill amLODIPine 5 MG tablet Take 1 tablet by mouth daily every morning. apixaban 5 MG tablet Take 1 tablet by mouth every 12 hours. Calcium Citrate-Vitamin D (CITRACAL + D PO) Take 1 tablet by mouth daily. cholecalciferol 50 MCG (2000 UT) capsule Take 1 capsule by mouth daily. OTC, gummy x 2 for dose Coenzyme Q10 (COQ10 PO) Take 200 mg by mouth daily. OTC Cyanocobalamin (B-12) 1000 MCG tablet Take by mouth daily. Gummy x2 for dose, OTC flecainide 100 MG tablet Take one tablet twice a day for heartbeat. lisinopril 40 MG tablet Take 1 tablet by mouth daily every morning. Magnesium 200 MG tablet Take 250 mg by mouth daily every morning. Magnesium Glycinate: OTC POTASSIUM CHLORIDE ER PO Take 20 mEq by mouth daily. Pyridoxine HCl (B-6 PO) Take 100 mg by mouth daily. risedronate 35 MG tablet Take 1 tablet by mouth every 7 days. Mondays Sertraline 100 MG tablet Take 1.5 tablets by mouth daily every morning. predniSONE & diphenhydrAMINE 3 x 50 MG & 1 x 50 MG Kit Take 1 kit by mouth As directed. Take 50 mg prednisone 13 & 7 hrs prior to scans. Take 50 mg benadryl & 50 mg prednisone 1 hour prior. Ok to split kit if needed 1 kit 3 No current facility-administered medications for this visit. Family History Problem Relation Age of Onset Coronary Artery Disease Father Cancer- Other Paternal Uncle lip cancer Uterine Cancer Paternal Grandmother Thyroid Cancer Daughter 44 total thyroidectomy- follicular & papillary Breast Cancer Cousin Social History Socioeconomic History Marital status: Spouse name: Not on file Number of children: Not on file Years of education: Not on file Highest education level: Not on file Occupational History Not on file Tobacco Use Smoking status: Never Smokeless tobacco: Never Substance and Sexual Activity Alcohol use: Not Currently Drug use: Never Sexual activity: Not on file Other Topics Concern Not on file Social History Narrative Not on file Social Determinants of Health Financial Resource Strain: Not on file Food Insecurity: Food Insecurity Present (08/14/2023) Hunger Vital Sign Worried About Running Out of Food in the Last Year: Sometimes true Ran Out of Food in the Last Year: Sometimes true Transportation Needs: No Transportation Needs (08/14/2023) PRAPARE - Transportation Lack of Transportation (Medical): No Lack of Transportation (Non-Medical): No Physical Activity: Not on file Stress: Not on file Social Connections: Not on file Intimate Partner Violence: Not At Risk (08/14/2023) Humiliation, Afraid, Rape, and Kick questionnaire Fear of Current or Ex-Partner: No Emotionally Abused: No Physically Abused: No Sexually Abused: No Housing Stability: Low Risk (08/14/2023) Housing Stability Vital Sign Unable to Pay for Housing in the Last Year: No Number of Places Lived in the Last Year: 1 Unstable Housing in the Last Year: No REVIEW OF SYSTEMS ROS As in the history of present illness Rest of the review of systems was negative PHYSICAL EXAMINATION GENERAL APPEARANCE: Well developed, well nourished, in no acute distress. BP 142/86 (BP Location: Left arm, BP Position: Sitting) Comment: Manual Pulse 81 Resp 16 Ht 1.524 m (5') Wt 69.1 kg (152 lb 6.4 oz) SpO2 97% BMI 29.76 kg/m Smoking Status Never HEENT: Sclerae anicteric and conjunctivae pink. NECK: Supple. No thyromegaly or lymphadenopathy. LUNGS: Air entry equal bilaterally with normal breath sounds. No adventitious sounds. CARDIOVASCULAR: The jugular venous pulse was not elevated. PMI was undisplaced. Rhythm was irregular. Normal first heart sound. Second heart sound is normally split. No gallop, murmur or rub was audible. Carotid pulses were normal bilaterally without any bruits. Carotid upstroke normal. EXTREMITIES: Warm and well perfused. No edema. NEUROLOGIC: Alert and oriented x 3. Normal mood and affect. DIAGNOSTIC DATA: No results found for: CHOLESTEROL, TRIG, HDL, LDLCALC, LDLDIRECT TTE OSH 09/2023 Normal LV function. EF 65% Normal RV size and function RVSP 33 mmHG. Stress MIBI 10/2023 Overall: No evidence of ischemia. Small apical anterior fixed defect consistent with prior infarct vs breast attenuation artifact. PAC's and short run of atrial tachycardia with vasodilator stress. Coronary artery and aortic calcification seen on CT portion. EKG 11/01/23 NSR, old anterior infarct MCT 10/2023 Normal sinus rhythm, NSVT (1 episode of 7 beats). EKG 11/28/2023 NSR, PACs, PVCs ASSESSMENT/PLAN Paroxysmal atrial fibrillation, PSVT She experiences intermittent palpitations but MCT did not demonstrate AF. On auscultation today rhythm sounded irregular but EKG showed PACs and occasional PVCs. - continue flecainide (has been on this for years) - continue with Eliquis 5 mg b.i.d. (also has history of recurrent DVTs) Exertional dyspnea. She still has significant exertional dyspnea and has had marked decrease in exercise tolerance though clinically she does not appear to be hypervolemic. Her pulmonary function tests normal and she did have a recent pulmonary consultation and the opinion was that she does not have any significant lung disease. She does have coronary artery calcification and I am concerned that her persistent worsening symptoms are due to obstructive coronary artery disease and hence I will order a left heart catheterization though recent stress test did not show any ischemia. Coronary artery calcification. She had been on statins but this was discontinued after she developed liver dysfunction due to one of her chemotherapy medications. - lipid panel. - LFTs Reviewed records from prior history instructor. Follow up: 3 months * Madie Schuster RN - 12/08/2023 11:00 AM EDT Provider ordered a ECG on patient, order verified. Skin was prepped according to [facility] policy and leads were placed correctly. Patient was instructed to lie very still, ECG was captured and printed when all leads were displayed with no somatic or electrical interference or artifact. Patient toleratedprocedure well. ECG given to MD for analysis. * Madie Schuster RN - 12/08/2023 11:00 AM EDT Venipuncture performed 12/08/2023. Verified order. Blood drawn from Right Antecubical. 1 attempt was performed. Pt tolerated procedure well and denies any complaints. documented in this [facility] [place] History of Present illness Narrative* Abdifatah Barbosa RN - 11/06/2023 7:45 AM EDT Caffeine free for 24 hours. status no status no Pharmacologic nuclear stress procedure explained to patient. Risk/benefits of the procedure were reviewed and patient verbalized understanding. Medical marble polisher offered to patient prior to sensitiveprocedure and patient declined. Patient was administered an adenosine infusion during the procedure per the Physician's order. Patient was instructed prior to the test of the possible side effects of the medication. During the infusion patient did experience dyspnea and fatigue. Immediately after the infusion was stopped patient's symptoms subsided and vital signs returned to baseline. Patient tolerated procedure well. Patient was instructed to call 911 if they experience any chest pain, shortness of breath or other anginal equivalent more intense and/or frequent than before today's testing. Patient was ambulatory upon discharge from the clinic. documented in this encounterPrem[facility] Hospital Discharge instructions* Patient Instructions* Abdifatah Barbosa RN - 11/06/2023 7:45 AM EDT After the completion of your nuclear test at the [facility] [place], youshould be aware of the following information: Other than mild fatigue and muscle soreness, there are no residual symptoms or physiological effects associated with this nuclear study. If you should feel different than normal after the test, please contact the physician who scheduled the exam. If you think this is an emergency, either dial 911 or go to the nearest emergency room. Your testing was supervised by Dr. Harrington today. A qualified and licensed [facility] history instructor will interpret your study and a final report of the results will be forwarded to your physician within 24 hours. You will get the results of your test directly from the ordering physician or a physician on your care team. The technologist performing your exam will not give you final results. You have been administered a low dose of radioactive material that will be in your system for aboutthree days.? This amount is approximately 5% of the limit that would require modification to your daily activities.? Because of this minimal activity, there are no restrictions with regards to exposure to other individuals, traveling, personal hygiene, or any other routine activity. If you are or , however, there are restrictions.? Please notify the technologist if this is the case. (Reference: [id number], Volume 9, Revision 2, Appendix U). If you have any questions or concerns regarding your exam, please call the [place] office at [phone], Monday through Monday, between the hours of 8:00 AM and 5:00 PM. For medical emergencies,please call 911 or go to your nearest emergency room. ? To Whom It May Concern: Our patient, Mary Jenkins, was seen at The [facility] [place] on 11/06/2023 for a nuclear test of the heart. During the course of this myocardial perfusion imaging study, our patient received a radioactive isotope, technetium (Tc-99m). Tc-99m emits gamma radiation with an energy of 140 [place]ico and has a six hour half life. For this study, our patient received approximately 40 mCi of Tc-99m Cardiolite. The administered radioactivity will be below background levels within three days from the conclusion of the test. In the meantime, our patient may be detected as radioactive due to this study. If you have any further questions please contact our staff @ [phone] Monday through Monday, between the hours of 8:00 AM and 5:00 PM. Vaibhav Blakely, [facility] Cake Stripper and RSO [facility] @ Outpatient Care [place] [address] documented in this encounter[facility] Telephone encounter Note* Telephone Encounter - Madie Schuster RN - 11/03/2023 9:30 AM EDT Incoming faxes received from [facility] and [facility]. Both provided for Dr. Babin to review and scanning into [facility]. [facility]09-20-[facility]24 Miscellaneous Notes* Telephone Encounter - Madie Schuster RN - 11/03/2023 9:30 AM EDT Incoming faxes received from [facility] and [facility]. Both provided for Dr. Babin to review and scanning into [facility]. * Telephone Encounter - Madie Schuster RN - 11/03/2023 7:[address] Breanne Pereira [address] [place] [address] Faxed PAULA and initial cardiovascular records request per patient and provider request. -------Fax Transmission Report------- To: Recipient at [phone] Subject: Fw: [facility] follow up Result: The transmission was successful. Explanation: All Pages Ok Pages Sent: 9 Connect Time: 3 minutes, 28 seconds Transmit Time: 11/03/2023 07:54 Transfer Rate: [id number] Status Code: 0000 Retry Count: 0 Job Id: [id number] Unique Id: [id number] Fax Line: 10 Fax Assembler Adjuster: [email or web address] [place] [address] Faxed PAULA and initial cardiovascular records request per patient and provider request. -------Fax Transmission Report------- To: Recipient at [phone] Subject: Fw: [facility] follow up Result: The transmission was successful. Explanation: All Pages Ok Pages Sent: 4 Connect Time: 2 minutes, 12 seconds Transmit Time: 11/03/2023 07:50 Transfer Rate: 18529 Status Code: 0000 Retry Count: 0 Job Id: [id number] Unique Id: [id number] Fax Line: 8 Fax Assembler Adjuster: [id number] [facility], Dr. Rodriguez [address] , [place] [address] Faxed PAULA and initial cardiovascular records request per patient and provider request. -------Fax Transmission Report------- To: Recipient at [phone] Subject: Fw: [facility] fu Result: The transmission was successful. Explanation: All Pages Ok Pages Sent: 4 Connect Time: 1 minutes, 51 seconds Transmit Time: 11/03/2023 07:58 Transfer Rate: 40199 Status Code: 0000 Retry Count: 0 Job Id: [id number] Unique Id: [id number] Fax Line: 18 Fax Assembler Adjuster: [email or web address] Blanca Cruz [facility] Faxed PAULA and initial cardiovascular records request per patient and provider request. -------Fax Transmission Report------- To: Recipient at [phone] Subject: Fw: [facility] follow up Result: The transmission was successful. Explanation: All Pages Ok Pages Sent: 9 Connect Time: 4 minutes, 39 seconds Transmit Time: 11/03/2023 07:56 Transfer Rate: [id number] Status Code: 0000 Retry Count: 0 Job Id: [id number] Unique Id: [id number] Fax Line: 6 Fax Assembler Adjuster: [email or web address] documented in [facility] Telephone encounter Note* Telephone Encounter - Madie Schuster RN - 11/03/2023 7:[address] Breanne Sanchez , [place] [address] Faxed PAULA and initial cardiovascular records request per patient and provider request. -------Fax Transmission Report------- To: Recipient at [phone] Subject: Fw: [facility] up Result: The transmission was successful. Explanation: All Pages Ok Pages Sent: 9 Connect Time: 3 minutes, 28 seconds Transmit Time: 11/03/2023 07:54 Transfer Rate: 99399 Status Code: 0000 Retry Count: 0 Job Id: [id number] Unique Id: [id number] Fax Line: 10 Fax Assembler Adjuster: [email or web address] [place] [address] Faxed PAULA and initial cardiovascular records request per patient and provider request. -------Fax Transmission Report------- To: Recipient at [phone] Subject: Fw: [facility] follow up Result: The transmission was successful. Explanation: All Pages Ok Pages Sent: 4 Connect Time: 2 minutes, 12 seconds Transmit Time: 11/03/2023 07:50 Transfer Rate: 18923 Status Code: 0000 Retry Count: 0 Job Id: [id number] Unique Id: [id number] Fax Line: 8 Fax Assembler Adjuster: [id number] [facility] [address] [place] [address] Faxed PAULA and initial cardiovascular records request per patient and provider request. -------Fax Transmission Report------- To: Recipient at [phone] Subject: Fw: [facility] fu Result: The transmission was successful. Explanation: All Pages Ok Pages Sent: 4 Connect Time: 1 minutes, 51 seconds Transmit Time: 11/03/2023 07:58 Transfer Rate: [id number] Status Code: 0000 Retry Count: 0 Job Id: [id number] Unique Id: [id number] Fax Line: 18 Fax Assembler Adjuster: [id number] Blanca Cruz [facility] Faxed PAULA and initial cardiovascular records request per patient and provider request. -------Fax Transmission Report------- To: Recipient at [phone] Subject: Fw: [facility] Result: The transmission was successful. Explanation: All Pages Ok Pages Sent: 9 Connect Time: 4 minutes, 39 seconds Transmit Time: 11/03/2023 07:56 Transfer Rate: [id number] Status Code: 0000 Retry Count: 0 Job Id: [id number] Unique Id: [id number] Fax Line: 6 Fax Assembler Adjuster: [email or web address] [facility]09-[facility] History of Present illness Narrative* SANDRA Toribio - 11/01/2023 1:30 PM EDT Reason for consultation. Mary Jenkins is a 82 y.o. female with a long history of paroxysmal atrial fibrillation, hypertension, hyperlipidemia and metastatic neuroendocrine cancer. HPI Over the past few months she has noted exertional dyspnea and walking a few 100 yd going up even 1 flight of steps causes her significant shortness of breath. She denied orthopnea, paroxysmal nocturnal dyspnea, pedal edema and chest pain. She has noted frequent palpitations where she feels her heart race and this usually lasts a few minutes. She has not experienced lightheadedness, near- syncope or syncope. She typically has good functional capacity but as noted above activity has been limited by dyspnea. Past Medical History: Diagnosis Date Arrhythmia atrial fibrillation Essential hypertension, benign History of cancer Hyperlipidemia Rheumatic fever Allergies Allergen Reactions Ivp Dye, Iodine Containing Anaphylaxis Takes prednisone & benadryl prior to CT scans as pre-meds Penicillin G Other reaction(s): Shortness of breath, edema Sandostatin [Octreotide] SOB, nausea, vomiting, resulted in hospitalization Concern with mixing administration protocol, not followed exactly, delyaed administration Current Outpatient Medications Medication Sig Dispense Refill amLODIPine 5 MG tablet Take 1 tablet by mouth daily every morning. apixaban 5 MG tablet Take 1 tablet by mouth every 12 hours. Coenzyme Q10 (COQ10 PO) Take 200 mg by mouth daily. OTC flecainide 100 MG tablet Take one tablet twice a day for heartbeat. lisinopril 40 MG tablet Take 1 tablet by mouth daily every morning. POTASSIUM CHLORIDE ER PO Take 20 mEq by mouth daily. predniSONE & diphenhydrAMINE 3 x 50 MG & 1 x 50 MG Kit Take 1 kit by mouth As directed. Take 50 mg prednisone 13 & 7 hrs prior to scans. Take 50 mg benadryl & 50 mg prednisone 1 hour prior. Ok to split kit if needed 1 kit 3 Pyridoxine HCl (B-6 PO) Take 100 mg by mouth daily. risedronate 35 MG tablet Take 1 tablet by mouth every 7 days. Mondays Sertraline 100 MG tablet Take 1.5 tablets by mouth daily every morning. cholecalciferol 50 MCG (2000 UT) capsule Take 1 capsule by mouth daily. Magnesium 250 MG tablet Take 1 tablet by mouth daily every morning. octreotide acetate (SandoSTATIN LAR Depot) 20 MG Kit injection Inject 20 mg intramuscularly Once. Every 30 days (Patient not taking: Reported on 08/23/2023) No current facility-administered medications for this visit. Family History Problem Relation Age of Onset Coronary Artery Disease Father Cancer- Other Paternal Uncle lip cancer Uterine Cancer Paternal Grandmother Thyroid Cancer Daughter 44 total thyroidectomy- follicular & papillary Breast Cancer Cousin Social History Socioeconomic History Marital status: Spouse name: Not on file Number of children: Not on file Years of education: Not on file Highest education level: Not on file Occupational History Not on file Tobacco Use Smoking status: Never Smokeless tobacco: Never Substance and Sexual Activity Alcohol use: Not Currently Drug use: Never Sexual activity: Not on file Other Topics Concern Not on file Social History Narrative Not on file Social Determinants of Health Financial Resource Strain: Not on file Food Insecurity: Food Insecurity Present (08/14/2023) Hunger Vital Sign Worried About Running Out of Food in the Last Year: Sometimes true Ran Out of Food in the Last Year: Sometimes true Transportation Needs: No Transportation Needs (08/14/2023) PRAPARE - Transportation Lack of Transportation (Medical): No Lack of Transportation (Non-Medical): No Physical Activity: Not on file Stress: Not on file Social Connections: Not on file Intimate Partner Violence: Not At Risk (08/14/2023) Humiliation, Afraid, Rape, and Kick questionnaire Fear of Current or Ex-Partner: No Emotionally Abused: No Physically Abused: No Sexually Abused: No Housing Stability: Low Risk (08/14/2023) Housing Stability Vital Sign Unable to Pay for Housing in the Last Year: No Number of Places Lived in the Last Year: 1 Unstable Housing in the Last Year: No REVIEW OF SYSTEMS ROS As in the history of present illness Rest of the review of systems was negative PHYSICAL EXAMINATION GENERAL APPEARANCE: Well developed, well nourished, in no acute distress. BP 137/62 (BP Location: Left arm, BP Position: Sitting) Pulse 77 Resp 16 Ht 1.524 m (5') Wt70.2 kg (154 lb 12.8 oz) SpO2 98% BMI 30.23 kg/m Smoking Status Never HEENT: Sclerae anicteric and conjunctivae pink. NECK: Supple. No thyromegaly or lymphadenopathy. LUNGS: Air entry equal bilaterally with normal breath sounds. No adventitious sounds. CARDIOVASCULAR: The jugular venous pulse was not elevated. PMI was undisplaced. Rhythm was regular.Normal first heart sound. Second heart sound is normally split. No gallop, murmur or rub was audible. Carotid pulses were normal bilaterally without any bruits. Carotid upstroke normal. EXTREMITIES: Warm and well perfused. No edema. NEUROLOGIC: Alert and oriented x 3. Normal mood and affect. DIAGNOSTIC DATA: No results found for: CHOLESTEROL, TRIG, HDL, LDLCALC, LDLDIRECT TTE OSH 09/2023 Normal LV function. EF 65% Normal RV size and function RVSP 33 mmHG. Stress MIBI EKG 11/01/23 NSR, old anterior infarct ASSESSMENT/PLAN Paroxysmal atrial fibrillation. She experiences intermittent palpitations and I will order 30 day mobile cardiac telemetry to assess for AF burden. She has been on flecainide for years though I am not certain of the indication and will await records from her previous history instructor. She will continuewith Eliquis 5 mg b.i.d.. Exertional dyspnea. Clinically she does not appear hypervolemic. Her symptoms could be an anginal equivalent and I will order pharmacologic stress myocardial perfusion study to evaluate for ischemia.She is also undergoing pulmonary testing and will await results of that as well. She mentioned thatgutierreze had been diagnosed with pulmonary hypertension in the past though on her most recent TTE RVSP was estimated at 33 mmHg. - BNP Awaiting records from prior history instructor. Follow up: 6 weeks * Madie Schuster RN - 11/01/2023 1:30 PM EDT Patient arrived via Ambulatory. Accompanied by daughter in law. Pt here to see cardiology for new patient visit for atrial fibrillation management. Medications and allergies reviewed. Reports: SOB every day, with walking to bathroom or kitchen, after taking shower, stairs or incline. Fluttering/palpitations every day, despite medication. Can occur when sitting, laying down in bed, or with activity. Patient denies any chest pressure, pain, nausea or vomiting. No diaphoresis, dizziness, headache orlightheadedness, or syncope. * ROSLYN Mckeon - 11/01/2023 1:30 PM EDT 10 leads explained to pt and pt verbalized understanding. ECG performed as per orders and handed [employer] Long-term holter monitor (Serial #[id number]) explained to patient. Pt ordered for a 30 day holter monitor. Pt verbalized understanding. Holter monitor placed on patient and activated. Pt given [employer] phone number and information to return box upon completion. Pt verbalized understanding. No further questions at this time. * Madie Schuster RN - 11/01/2023 1:30 PM EDT ROIs obtained fro Batch Freezer Operator: Dr. Breanne Pereira [address] , [place] [id number] [facility] [address] [place] [address] [facility], Dr. Rodriguez [address], [place] [address] Blanca Cruz [facility] Per provider, patient, family request records will be requested to facilitate continuity of cardiology care. documented in this encounterPremier Health [facility]07-18-2024 Telephone encounter Note* Telephone Encounter - Breanne Marquez - 08/31/2023 3:56 PM EDT No Show Documentation Mary bustos showed for an appointment on 08/31/2023 with Hussein Manning APRN.CNP at 1:00pm. She was scheduled for new patient evaluation. I called and LVM with the patient regarding her missed appointment. Resources discussed/offered to patient: rescheduling No show determined to be fault of patient: N/A This is the patients first no show in the last 12 months. Letter mailed : Yes Is this the Third or Fourth No Show? No Breanne Marquez August 31, 2023 3:56 PM [facility]07-18-2024 Miscellaneous Notes* Telephone Encounter - Breanne Marquez - 08/31/2023 3:56 PM EDT No Show Documentation Mary bustos showed for an appointment on 08/31/2023 with Hussein Manning APRN.CNP at 1:00pm. She was scheduled for new patient evaluation. I called and LVM with the patient regarding her missed appointment. Resources discussed/offered to patient: rescheduling No show determined to be fault of patient: N/A This is the patients first no show in the last 12 months. Letter mailed : Yes Is this the Third or Fourth No Show? No Breanne Marquez August 31, 2023 3:56 PM documented in this encounterSelect [facility] History of Present illness Narrative* Erwin David MD - 08/23/2023 11:15 AM EDT Images from the original note were not included. REFERRING MD: Referral from: Dr. Matt Nunez Scheduled with Dr. David on 11/25 DX: metastatic NEC Ki67%: 5% Pathology: [facility] 09/2020 HISTORY OF PRESENT ILLNESS: Mary Jenkins is a 82 y.o. female who is diagnosed with neuroendocrine tumor. She comes here today for evaluation regarding diagnosis. She was in usual state of health until: 2015: Resection of parathyroid adenomas August 2020: Acute onset of abdominal pain and diarrhea. She was treated for diverticulitis. Diarrheaimproved, but continued with RUQ pain. September 25, 2020: Liver core biopsy: [facility] read: A. Liver mass, CT-guided core biopsy: Metastatic well-differentiated neuroendocrine tumor, G2 Immunohistochemical stain performed at outside hospital TTF 1 negative S100 negative CK7 negative CK20 negative Napsin a negative CD117 negative P 40 negative Pancytokeratin positive NSE positive CD56 positive Synaptophysin positive Chromogranin positive Henry 2 positive CDX2 positive CK8 positive Ki-67: 6% Comment: The immunohistochemical profile suggests a gastrointestinal primary. Clinical correlation is recommended. 10/13/2020: FDG PET: Increased FDG distrubution noted in the region of the proximal ascending colong. Liver does not uptake FDG. 10/2020: Sandostatin q 28 days 12/29/2020: MRI A/P: IMPRESSION: 1. Probable mass involving the distal/terminal ileum which may represent the primary site of the known neuroendocrine tumor. No upstream bowel distention. No mesenteric masses. 2. Multiple lesions within the liver consistent with metastatic disease. Dominant lesion in posterior left lobe. 3. No adenopathy in the abdomen or pelvis. 4. Status post hysterectomy and cholecystectomy. 03/08/2021: laparoscopic right colectomy: A. Right colon and terminal ileum, laparoscopic right hemicolectomy: Well-differentiated neuroendocrine tumor, grade 1,involving the terminal ileum, see synoptic report Surgical margins are negative for tumor Tumor is panmural and involves the serosa Extensive perineural invasion 20 benign lymph nodes (0/20) Immunohistochemical stains for chromogranin and synaptophysin are positive. Manual quantitative immunohistochemistry for Ki-67 is 0%. Zero mitoses were seen in 2 mm2. 03/22/21- left hepatic lobe TAE by Dr. Rush 05/31/2021: Right hepatic lobe TAE 06/16/2021: Venous doppler: +acute DVT of right tibioperoneal trunk, peroneal, soleus veins. 06/19/2021 CT C/A/P multiple lesions of decreased attenuation within the liver worrisome for metastatic disease including a 7 cm lesion within the posterior segment the right lobe of the liver. There is diffuse atherosclerotic calcification of the abdominal aorta, without a demonstrated aneurysm. 08/13/2021 MRI A/P IMPRESSION: 1. Status post right hemicolectomy involving the previously described mass within the distal/terminal ileum, compatible with patient's known history of neuroendocrine tumor. No evidence of recurrence within the resection bed. No discrete mesenteric masses. 2. Status post interval transarterial bland embolization of lesions in segment 2/3 which has decreased in size (now measuring 3.0 x 2.4 cm, previously 4.6 x 4.1 cm.) however demonstrates persistent peripheral arterial phase enhancement, suggestive of viable disease. 3. Status post interval transarterial bland embolization lesion in segment 7. No definite abnormal enhancement is identified. Interval development of likely posttreatment confluent necrotic collections in this region. 4. Additional previously indexed arterially enhancing lesions in segment 4A/5 are not significantly changed. 5. Focus of intrinsic T1 hyperintensity within the proximal common hepatic is suggestive of posttreatment hemobilia. No significant proximal intrahepatic biliary ductal dilation. Mild persistent prominence of the common bile duct could relate to postcholecystectomy ectasia. Chief Complaint Patient presents with Follow-up Neuroendocrine carcinoma metastatic to liver Other Concerns with Sandostatin injection around 08/10/23 causing reaction and jaundice with hospitalization Concerns with fatigue INTERIM HISTORY: Mary Jenkins presents for a follow-up. She reports feeling tired and has lost weight due to a low appetite. She also reports experiencing hot flashes when not on Sandostatin. ECOG PS: 1 REVIEW OF SYSTEMS: A review of systems was performed with the patient at today's patient and is negative except for those items mentioned in the interval history and those items mentioned below as well as in the nursing documentation review of systems. 03/31/2023 ONC AMB Nursing Assessment Performance Status Grade 1 Fatigue Grade 0 Nausea Grade 0 Vomiting Grade 0 Anorexia Grade 0 Diarrhea Grade 1 Constipation Grade 0 Peripheral Motor Neuropathy Grade 1 Depression Grade 0 Mucositis (oral, pharyngeal) Grade 0 Tinnitus Grade 1 Dyspnea Grade 1 Pain Grade 1 Fever Grade 0 Localized Edema Grade 1 Rash Maculo-Papular Grade 0 Palmar-Plantar Erythrodysesthesia Syndrome Grade 0 Allergies Allergen Reactions Contrast Dye [Ivp Dye, Iodine Containing] Anaphylaxis Takes prednisone & benadryl prior to CT scans as pre-meds Penicillin G Other reaction(s): Shortness of breath, edema Outpatient Medications Prior to Visit Medication Sig Dispense Refill amLODIPine 5 MG tablet Take 1 tablet by mouth daily every morning. apixaban 5 MG tablet Take 1 tablet by mouth every 12 hours. cholecalciferol 50 MCG (2000 UT) capsule Take 1 capsule by mouth daily. flecainide 100 MG tablet Take one tablet twice a day for heartbeat. lisinopril 40 MG tablet Take 1 tablet by mouth daily every morning. Magnesium 250 MG tablet Take 1 tablet by mouth daily every morning. Metoprolol succinate 100 MG tablet XL Take 1 tablet by mouth Daily (with dinner). predniSONE & diphenhydrAMINE 3 x 50 MG & 1 x 50 MG Kit Take 1 kit by mouth As directed. Take 50 mg prednisone 13 & 7 hrs prior to scans. Take 50 mg benadryl & 50 mg prednisone 1 hour prior. Ok to split kit if needed 1 kit 3 risedronate 35 MG tablet Take 1 tablet by mouth every 7 days. Sertraline HCl 150 MG capsule 150 mg daily every morning. atorvastatin 10 MG tablet Take 1 tablet by mouth daily every morning. (Patient not taking: Reportedon 08/23/2023) octreotide acetate (SandoSTATIN LAR Depot) 20 MG Kit injection Inject 20 mg intramuscularly Once. Every 30 days (Patient not taking: Reported on 08/23/2023) No facility-administered medications prior to visit. Past Medical History: Diagnosis Date Arrhythmia atrial fibrillation Essential hypertension, benign History of cancer Hyperlipidemia Rheumatic fever Past Surgical History: Procedure Laterality Date OCCLUSION/EMBOLIZATION ENDOVASCULAR TUMORS/ORGAN ISCHEMIA/INFARCTION N/A 05/31/2021 Laterality: N/A; Surgeon: Humbreto Rush MD; [facility] INTER[facility] (VIR) OCCLUSION/EMBOLIZATION ENDOVASCULAR TUMORS/ORGAN ISCHEMIA/INFARCTION N/A 03/22/2021 Laterality: N/A; Surgeon: Humberto Rush MD; [facility]VIR) COLECTOMY PARTIAL LAPAROSCOPIC Right 03/08/2021 Laterality: Right; Surgeon: Rodrigo López MD; Location: [facility] MAIN OR PARATHYROIDECTOMY 2014 removed 2 nodules APPENDECTOMY BREAST LUMPECTOMY Left Benign per pt report; approximately age 41 CHOLECYSTECTOMY HYSTERECTOMY KNEE SURGERY ORIF WRIST Left OTHER SURGICAL spine surgery for T8 fracture. Social History Tobacco Use Smoking status: Never Smokeless tobacco: Never Substance Use Topics Alcohol use: Not Currently Drug use: Never Family History Problem Relation Age of Onset Coronary Artery Disease Father Cancer- Other Paternal Uncle lip cancer Uterine Cancer Paternal Grandmother Thyroid Cancer Daughter 44 total thyroidectomy- follicular & papillary Breast Cancer Cousin Family Hx: Daughter has thyroid cancer Social Hx: no environmental exposures PHYSICAL EXAMINATION: Patient is in no acute distress. Patient is alert, oriented to person, place and time. Blood pressure 142/65, pulse 63, temperature 97.3 F (36.3 C), temperature source Infrared,resp. rate 16, height 1.545 m (5' 0.83), weight 69.8 kg (153 lb 14.4 oz), SpO2 95%. HEENT: Head atraumatic, normocephalic. Gross vision intact. Eyes are nonicteric. Neck: supple, symmetrical Lungs: Clear to auscultation bilaterally. No rales or wheezing. Heart: Regular heart rate and rhythm. Abdomen: Soft, nontender, non distended, without palpable masses. Normoactive bowel sounds present. No liver or mass are palpable. Extremities: No edema Skin: Warm and dry with good skin turgor. No rash. Lymph nodes: No lymphadenopathy noted in left or right inguinal area Neurologic: No focal deficits, grossly intact. IMAGING STUDIES: Imaging results have been reviewed and discussed with the patient. LABS: Latest Reference Range & Units 03/24/23 14:30 SODIUM 135 - 145 mmol/L 138 POTASSIUM 3.5 - 5.0 mmol/L 4.0 CHLORIDE 98 - 108 mmol/L 104 CARBON DIOXIDE (CO2) 21 - 31 mmol/L 27 BUN 7 - 25 mg/dL 27 (H) Creatinine 0.50 - 1.20 mg/dL 0.89 BUN/CREA RATIO 30 eGFR, CKD-EPI, Female >=60 mL/min/1.73m2 65 CALCIUM 8.6 - 10.5 mg/dL 9.5 ANION GAP 7 - 17 mmol/L 11 OSMOLALITY (CALC) 278 - 305 mOsm/kg 293 BILIRUBIN, TOTAL <1.5 mg/dL 0.6 PROTEIN, TOTAL 6.4 - 8.3 g/dL 7.4 Albumin 3.5 - 5.0 g/dL 4.4 ALKALINE PHOSPHATASE 32 - 126 U/L 100 ALT 9 - 48 U/L 9 AST 10 - 39 U/L 16 LACTATE DEHYDROGENASE 100 - 190 U/L 135 GLUCOSE 70 - 99 mg/dL 88 Chromogranin A <93 ng/mL 73 GASTRIN, DRUG-STIMULATED pg/mL 400 (H) WBC 3.99 - 11.19 K/uL 7.79 RBC 3.91 - 5.04 M/uL 4.40 HEMOGLOBIN 11.4 - 15.2 g/dL 12.7 HEMATOCRIT 34.9 - 44.3 % 39.3 MEAN CELL VOLUME 79.6 - 97.7 fL 89.3 Mean Cell HGB 25.9 - 33.9 pg 28.9 MEAN CELL HGB CONCENTRATION 31.4 - 35.9 g/dL 32.3 RBC DISTRIBUTION 10.8 - 14.9 % 14.8 PLATELET COUNT 150 - 393 K/uL 231 MEAN PLATELET VOLUME 8.5 - 12.2 fL 9.7 RBC, NUCLEATED <=0.2 /100 WBC 0.0 NEUTROPHILS % % 62.4 LYMPHOCYTES % % 25.3 MONOCYTES % % 9.1 EOSINOPHILS % % 2.3 BASOPHILS % % 0.6 IMMATURE GRANS% % 0.3 SEGS + Bands, Absolute 1.64 - 7.28 K/uL 4.86 IMMATURE GRANS ABSOLUTE <=0.08 K/uL <0.04 LYMPHS, ABSOLUTE 1.16 - 3.51 K/uL 1.97 MONOS, ABSOLUTE 0.22 - 0.87 K/uL 0.71 EOS, ABSOLUTE 0.00 - 0.42 K/uL 0.18 Baso Abs# Auto 0.00 - 0.15 K/uL 0.05 DIFF STATUS Electronic Differential (H): Data is abnormally high Lab results have been reviewed and discussed with the patient. IMPRESSION & PLAN: Diagnosis: WD NET Ki-67 6% of primary likely ileum (FDG PET mesenteric uptake SUV 4.2) Date of Treatment: 10/2020: Sandostatin started. Symptom [place] at presentation: Diarrhea which improved on sandostatin. 03/08/2021: laparoscopic right hemicolectomy: A. Right colon and terminal ileum, laparoscopic right hemicolectomy: Well-differentiated neuroendocrine tumor, grade 1,involving the terminal ileum, see synoptic report Surgical margins are negative for tumor Tumor is panmural and involves the serosa Extensive perineural invasion 20 benign lymph nodes (0/20) Immunohistochemical stains for chromogranin and synaptophysin are positive. Manual quantitative immunohistochemistry for Ki-67 is 0%. Zero mitoses were seen in 2 mm2. 03/22/21- left hepatic TAE by Dr. Rush. 05/31/2021: Right hepatic. Tolerated well. 06/16/2021: Venous doppler: +acute DVT of right tibioperoneal trunk, peroneal, soleus veins 08/09 - Discontinued Sandostatin due to elevated LFTs, total bilirubin max of 8.6 Assessments Last Labs The most recent lab results show elevated liver enzyme levels (AST, ALT, Alkaline Phosphatase) and total bilirubin at 8.6. All other labs are within normal limits. Last Scan MRI Abdomen with and without Contrast (08/12/2023): No interval biliary dilatation from same day right upper quadrant ultrasound. No evidence of choledocholithiasis. Status post cholecystectomy. Hepatic lesions are stable compared with the prior MRI from March 2023. No evidence of new abdominal metastatic disease. Plan for today: Given the recent scans indicating stable disease, we will defer further SSA treatments until liver function tests (LFTs) normalize. The patient will continue to be monitored closely for liver enzyme levels and total bilirubin. The patient's fatigue and weight loss will also be monitored. Options for the Future: PRRT, Afinitor, cabozantinib, or repeat TAE, Orders Today Labs: 24 Hr Urine 5-HIAA Scans: MRI & CT CHEST RTC Date: Nov Other Diagnosis and Plans #DVT - started on 2.5 mg eliquis BID. Experienced RLE edema and pain which has now subsided. #HTN: Uncontrolled. Discussed at every visit. She needs to follow up with PCP/cardiology. - metoprolol, amlodipine, & lisinopril Orders Placed This Encounter COMPREHENSIVE METABOLIC PANEL We encouraged her to contact the clinic with any questions or concerns. Ms. Jenkins understands andagrees to the plan. Documented by Jaguar Graham, for Dr. David on 08/23/2023 at 11:33 AM Erwin David M.D. Neuroendocrine/Thyroid Tumor Program [facility] José Santoyo [facility] Instructions* Patient Instructions* Selina Ortiz RN - 08/23/2023 11:15 AM EDT Return to clinic : RTC as scheduled in Dec Labs: - Comp chem today - 24 hr urine 5-HIAA - full set of routine labs in Dec with scans Scans: as scheduled documented [facility] Nurse Note* Nursing Notes - Evie Diallo RN - 08/15/2023 4:10 PM EDT Discharge education, AVS, and prescriptions provided and reviewed with patient. Answered all questions, pt verbalized understanding with no further questions or needs at this time. [facility] Miscellaneous Notes* Nursing Notes - Evie Diallo RN - 08/15/2023 4:10 PM EDT Discharge education, AVS, and prescriptions provided and reviewed with patient. Answered all questions, pt verbalized understanding with no further questions or needs at this time. * Nursing Notes - Jj Petersen RN - 08/15/2023 1:12 PM EDT 08/15/23 1311 Final Discharge Planning Discharge Disposition Home Services at Discharge Outpatient clinical services (ie: lab draws, transfusions, injectables) CM/SW AVS Portion Completed Yes Plan Plan Patient is medically stable to discharge to home today. Patient/Family In Agreement With Plan yes Transport Request Mode of Transfer Private Vehicle [facility] Inpatient PCR Discharge Note Patient discussed in medical rounds for discharge to home. PCRM met with the patient and [id number] to discuss final discharge plan. Patient presented on ED with complaints of jaundice. Patient's bilirubin is 3.5 from 8.6 and MRI showed no biliary dilatation or choledocholithiasis with stable hepatic lesions. Services for Discharge Outpatient follow-up services Patient lives in a house with her grandson and states she has been independent. Patient was provided by PT/OT with straight cane which patient has been using during this admission. Patient denies anyother needs at this time. Consults with Final Discharge Recommendations PCP, Oncologist, Leverman Lines/Tubes/Drains/Wounds/Supplies Not applicable Medications No barriers anticipated in obtaining discharge medications. No prior authorizations anticipated. Reconciliation of medications to be completed by the medical team. Durable Medical Equipment Patient has walk-in shower which is handy in her house. Choice Was Patient Choice Provided: N/A Transportation Transportation will be provided by family member via private vehicle. Education Discharge education provided by the medical team and updated in the After Visit Summary. Follow Up(s) Any follow up requested by the medical team arranged. Appointments in the After Visit Summary. Was Ambulatory PCRM added to the Care Team? No- Handoff criteria not met The PCRM has updated the patient's nurse regarding the final discharge plan. Risk of Readmission: 5.7 Category Reference: Low: 0% - 5% Medium - Low: 5.1% - 10% Medium - High: 10.1% - 16% High: 16.1% - 100% Readmission Risk Interventions Documented: Yes No other discharge needs have been identified at this time. This plan was developed in collaboration with the patient and caregiver/preferred decision maker. Patient and family are in agreement with final discharge plan. Please refer to AVS and medical record for additional information. Patient instructed to call with questions. PCRM will continue to follow with medical team for any additional discharge planning needs. Conchis SHEPHERD, RN Patient Care Violin Restorer Onc 1 Inpatient Service If any changes to this individualized plan of care during evening and weekend hours and assistance is needed, please page the warning coordination meteorologist PCRM at [phone]. * Nursing Notes - Jj Petersen RN - 08/14/2023 4:03 PM EDT 08/14/23 1549 Referral Information Arrived From emergency department Readmission Information Was patient readmitted within 30 Days? No Information Source Information Source patient ;review of medical record ([id number] at beside) Outpatient Providers Outpatient Providers Updated In IHIS Yes Contact Information Readiness Paraprofessional/SW Added to Care Team Yes This Funding Coordinator is Primary Readiness Paraprofessional/SW Yes Readiness Paraprofessional Name Conchis Benavides Readiness Paraprofessional's Social Work Contact Name Kristyn Benavides Occ Therapist's Living Environment Lives With grandchild(bentley) Living Arrangement and Set Up house Provides Primary Care For no one Primary Care Provided By self Support System Immediate family Able to Return to Prior Arrangements yes Functional Status Patient's Functional Status Prior To This Admission? Independent Are There Status Changes This Admission? No Changes Observed Since Admission? No Changes Observed Concerns With Patient Being Able To Care For Themselves At Discharge? No Employment/Financial Employed? 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[place], [place] Employment/Financial Concerns no Source Of Income social security;pension/penitentiary Insurance Medical Insurance Verified Yes Prescription Coverage Yes Pharmacy updated in IHIS Yes Initial Discharge Planning Home Care Services (RAT POISONER) No Patient Goal for Discharge Return home with assistance from family and friends Anticipated discharge disposition Home Anticipated Services at Discharge Outpatient follow up Anticipated Changes Related to Illness none Current Discharge Risk chronically ill Transportation Available family or friend will provide Home Care Services (RAT POISONER) Additional Home Care Services (RAT POISONER) no Assessment/Concerns to be Addressed Concerns To Be Addressed denies needs/concerns at this time PCRM Initial Assessment Met with patient and [id number] at bedside to complete the initial assessment. Explained role and function of PCRM in multidisciplinary team. Contact number provided for questions. Demographic information reviewed with patient/family and confirmed as correct. Reason for Admission: Acute Jaundice Estimated length of stay: 1-7 days Advance directives Patient does not have Advanced Directives on File Lines/Drains/Tubes Not applicable Initial PCRM Discharge Planning Patient lives in a house with her grandson and states she has been independent. Patient ambulates without the need for ambulatory device. Patient denies any needs at this time. Final plan will be determined closer to discharge, pending therapy and medical team recommendations. Patient/family verbalized understanding and agreement with the plan of care. Patient/family have no questions at this time. PCRM will continue to follow patient with multidisciplinary team for ongoing assessment of needs and for discharge planning. Medical team updated. Conchis SHEPHERD, RN Patient Care Violin Restorer Onc 1 Inpatient Service * Plan of Care - Daniella Martinez PT - 08/14/2023 8:19 AM EDT Problem: PT - General Goals Goal: Ambulation - Patient will ambulate 500 feet with modified independence and cane to improve ability to safely navigate home and community. Outcome: Ongoing Goal: Strength - Patient will demonstrate understanding of exercise program. Outcome: Ongoing Problem: PT - Outcome Measure Goals Goal: TUG - Patient will perform the Timed Up and Go (TUG) in less than 13.5 seconds to demonstratereduced fall risk. Outcome: Ongoing * Plan of Care - Marcus Jaime MD - 08/13/2023 2:48 PM EDT GI Plan of Care: Chart reviewed - LFTs with some improvement from yesterday with Tbili 5.5 and ALP 352, down from 8.6 and 444 yesterday, respectively We reviewed her MRI/MRCP results and no biliary dilation or obstructive stone is seen. No reversible etiology amenable to endoscopic therapy. Suspect LFT abnormalities are secondary to hepatic metastatic disease. PB team will sign off, please reach out with questions. Macrus Jaime MD * Nursing Notes - Karin Disla RN - 08/12/2023 4:00 AM EDT On admission to CT SCAN CCCT 10, from ED a dual RN initial assessment of skin condition was performed by Karin Disla RN and Alejandrina RN. Skin Assessment: Skin not within defined limits. Jaundiced Liang Score: 21 LDA Added:No [facility] [place] Nurse Note* Nursing Notes - Jj Petersen RN - 08/15/2023 1:12 PM EDT 08/15/23 1311 Final Discharge Planning Discharge Disposition Home Services at Discharge Outpatient clinical services (ie: lab draws, transfusions, injectables) CM/SW AVS Portion Completed Yes Plan Plan Patient is medically stable to discharge to home today. Patient/Family In Agreement With Plan yes Transport Request Mode of Transfer Private [facility] Discharge Note Patient discussed in medical rounds for discharge to home. PCRM met with the patient and [id number] to discuss final discharge plan. Patient presented on ED with complaints of jaundice. Patient's bilirubin is 3.5 from 8.6 and MRI showed no biliary dilatation or choledocholithiasis with stable hepatic lesions. Services for Discharge Outpatient follow-up services Patient lives in a house with her grandson and states she has been independent. Patient was provided by PT/OT with straight cane which patient has been using during this admission. Patient denies anyother needs at this time. Consults with Final Discharge Recommendations PCP, Oncologist, Leverman Lines/Tubes/Drains/Wounds/Supplies Not applicable Medications No barriers anticipated in obtaining discharge medications. No prior authorizations anticipated. Reconciliation of medications to be completed by the medical team. Durable Medical Equipment Patient has walk-in shower which is handy in her house. Choice Was Patient Choice Provided: N/A Transportation Transportation will be provided by family member via private vehicle. Education Discharge education provided by the medical team and updated in the After Visit Summary. Follow Up(s) Any follow up requested by the medical team arranged. Appointments in the After Visit Summary. Was Ambulatory PCRM added to the Care Team? No- Handoff criteria not met The PCRM has updated the patient's nurse regarding the final discharge plan. Risk of Readmission: 5.7 Category Reference: Low: 0% - 5% Medium - Low: 5.1% - 10% Medium - High: 10.1% - 16% High: 16.1% - 100% Readmission Risk Interventions Documented: Yes No other discharge needs have been identified at this time. This plan was developed in collaboration with the patient and caregiver/preferred decision maker. Patient and family are in agreement with final discharge plan. Please refer to AVS and medical record for additional information. Patient instructed to call with questions. PCRM will continue to follow with medical team for any additional discharge planning needs. Conchis SHEPHERD RN Patient Care Violin Restorer Onc 1 Inpatient Service If any changes to this individualized plan of care during evening and weekend hours and assistance is needed, please page the warning coordination meteorologist PCRM at [phone]. [facility]07-02-[facility]24 Hospital Discharge instructions* Discharge Instructions* Jj Petersen RN - 08/15/2023 1:08 PM EDT Images from the original note were not included. Your Readiness Paraprofessional (PCRM) has arranged your appointments for follow up based on your preference of where you would like to continue your care. If you are unable to attend appointments that have been arranged for you, it is your responsibilityto call to reschedule at least 48 hours prior to the appointment date. Your After Visit Summary (AVS) has provided you with instructions for your discharge. It is your responsibility to ask questions if you have any. Please contact your medical care team at the numbers listed if you should have any additional questions. IMPORTANT: Automated Post Discharge Call Patient Information As part of your care, we will call you at the primary number we have on file, the day after you aredischarged at 9:30 a.m. to check on you. Please expect a two-minute automated telephone call from the hospital. This call will come from [phone]. If you are unable to answer or do not receive the automated call, please call [phone] to complete this important evaluation. By answering the phone evaluation, a [facility] nurse will be notified if you have any questions or concerns and call you back. If you have an immediate medical need call your doctor s office, or if you have a medical emergencycall 911. * Discharge Instr - Activity* Jj Petersen RN - 08/14/2023 10:24 AM EDT Activity: Please follow these instructions: You may perform the following activities: -Resume your usual activities without restrictions. -Take rest periods during the day as needed. -Walk as much as you can to increase your strength and endurance using your straight cane. * Discharge Instr - Diet* Jj Petersen RN - 08/14/2023 10:24 AM EDT Diet: Your doctor has recommended that you follow these diet instructions at home. Refer to the patient education materials you received during your hospital stay. If you would like more nutrition counseling, ask your doctor about making an appointment with an outpatient dietitian. No restrictions-usual diet -You are to resume your usual diet at home. * Discharge Instr - Notify* Jj Petersen RN - 08/14/2023 10:26 AM EDT Notify Your Doctor or Nurse if you have any of the following: Fever, Chills, or Flu Call your doctor or nurse if you have a temperature greater than 100.5 degrees F and/or chills. Nausea and Vomiting Call your doctor or nurse if you have nausea and vomiting that continues more than 24 hours, will not let you keep medicine down and will not let you keep fluids down Unrelieved Pain Call your doctor or nurse if your pain gets worse or is not eased 1 hour after taking your pain medicine. Miscellaneous Education [facility] Care Classes The [facility] offers a series of monthly classes about integrative care. Integrative care involves other care methods that may be used along with your other cancer treatment. Learn about the role of exercise, diet and nutrition, manual and movement therapies as part of a cancer care program. Classes also provide a chance to share thoughts and concerns with other cancer survivors,their families and friends. For more information, contact [facility] at or visit our website at www.[place] Prevention Many falls can be prevented. Here are some things you can do. First, tell your doctor or nurse if you have fallen or nearly fallen. Ask if you could see a physical therapist (PT) to help you improve your strength and balance. Check with your doctor or pharmacist to see if any of the medicines that you take may increase your risk for falls. Have your vision checked each year. See your doctor if you are dizzy or weak with any illness. Wear comfortable shoes with low, broad heels and soles that pet sitter. Drink enough liquid each day. Ask your doctor how much is enough. Consider using an emergency personal medical alert system. Get up slowly after sitting or lying down. Remove throw rugs, improve li ghting, use reflective tape on stairs. Positive Coping Skills Coping skills are a way to decrease the negative effects of stress, anger, and anxiety. It is important to use these skills daily to maintain a manageable level of stress, decrease anxiety, and deal positively with anger. Examples of coping skills: Exercise or take a walk daily. Use relaxation or deep breathing. Engage in a positive recreation interest. Listen to calming music. Manage your time well. Talk to someone. Take a break. Eat a balanced diet. Maintain a regular sleep schedule. Additional Contacts: Cancer Resources For more information about support groups and other resources offered, contact: -[employer] [employer] at [phone] to find out about support groups offered by [facility] [employer] at [phone] or online at www.cancer.org -[facility] at 570-099-7428 or online at www.[facility].org Patient education videos are available on The [facility] website. These videos may help you to better understand your cancer or cancer treatments. The videos also give tips on how to care for yourself to help you feel your best. Here is the link to watch these videos: <a href=http://cancer.[facility].edu/patientedvideos target=_blank>Cancer Videos</a> However, if you are using a smart phone, you will need to use http://cancer.[email or web address]/patientedvideos. Conchis SHEPHERD, RN Patient Care Violin Restorer Onc 1 Inpatient Service * Discharge Instr - DME* Jj Petersen RN - 08/14/2023 4:14 PM EDT documented in this [facility]07-02-2024 Hospital course Narrative* Junior Dior MD - 08/15/2023 10:35 AM EDT Discharge Summary Name: Mary Jenkins Age: 82 y.o. Birthday: 1940 Admit Date: 08/12/2023 3:38 AM Discharge Date: 08/15/23 Discharge Time: 1200 Discharge Unit: onc 1 Admission Information Admitting Physician: Tawana Deluca MD Discharge Information Discharge Physician: Ayla Deluca MD Problem List Active Hospital Problems Diagnosis Jaundice Resolved Hospital Problems No resolved problems to display. Brief Summary of Hospital Course for Discharge Summary: Mary Jenkins is a 82 y.o. female with a history of neuroendocrine cancer with liver metastases,a-fib, HTN and HLD who presents today with complaints of jaundice. She had been feelng unwell sinceher sandostatin injection. She had experienced chills, chest pain, upper back pain the wrapped around to her RUQ. She also was experiencing dry heaving and nausea and waxing and waning RUQ pain 08/22.She was admitted to onc 1 service. She underwent infectious workup with no growth on blood culturesto date. She had hyperbilirubinemia, elevated LFTs, alk phos, and dark urine. She underwent RUQ US,CT abd/pelvis, and MRCP which found no definitive cause of biliary obstruction or abdominal pathology causing her current symptoms or anything indicating endoscopic management from GI. Patient made aspontaneous recovery without medical or surgical intervention. Her bilirubin levels have been decreasing consistently with only mildly elevated AST and normal ALT. Her jaundice has almost completely resolved and she lacks scleral icterus. Brief Summary of Consults for Discharge Summary: Gastroenterology: For evaluation of elevated bilirubin and LFTs suspicioussness for biliary obstruction and possible endoscopic intervention Brief Summary of Procedures and Imaging for Discharge Summary: MRCP - to evaluate for biliary blockage US Abdomen RUQ/Liver/Gallbladder - to investigate elevated bilirubin - found hyperechoic metastases Xray spine - back pain - found previously known compression fracture of T7 Summary of last selected lab results and date obtained: Lab Results Component Value Date WBC 6.24 08/15/2023 HGB 11.3 (L) 08/15/2023 HCT 35.1 08/15/2023 PLATELET 252 08/15/2023 MCV 86.0 08/15/2023 Lab Results Component Value Date SODIUM 140 08/15/2023 POTASSIUM 3.3 (L) 08/15/2023 CHLORIDE 101 08/15/2023 CO2 26 08/15/2023 BUN 12 08/15/2023 CREATSERUM 0.54 08/15/2023 GLUCOSE 127 (H) 08/15/2023 Lab Results Component Value Date ALT 30 08/15/2023 AST 47 (H) 08/15/2023 ALKPHOS 361 (H) 08/15/2023 BILITOTAL 3.5 (H) 08/15/2023 BILIDIRECT 1.9 (H) 08/15/2023 Brief Summary of Labs for Discharge Summary: Discharge Orders AMB REFERRAL TO CARDIOVASCULAR MEDICINE Current Outpatient Meds: Medication List for when you go home ASK your doctor about these medications Morning Afternoon Evening Bedtime As Needed amLODIPine 5 MG TABS Take 1 tablet by mouth daily every morning. Commonly known as: NORVASC Last time this was given: 5 mg on August 15, 2023 8:31 AM apixaban 5 MG TABS Take 1 tablet by mouth every 12 hours. Commonly known as: ELIQUIS Last time this was given: 5 mg on August 15, 2023 8:31 AM Atorvastatin 10 MG TABS Take 1 tablet by mouth daily every morning. Commonly known as: LIPITOR cholecalciferol 50 MCG (2000 UT) CAPS Take 1 capsule by mouth daily. Commonly known as: VITAMIN D3 Last time this was given: Ask your nurse or doctor Flecainide 100 MG TABS Take one tablet twice a day for heartbeat. Commonly known as: TAMBOCOR Last time this was given: 100 mg on August 15, 2023 8:31 AM lisinopril 40 MG TABS Take 1 tablet by mouth daily every morning. Commonly known as: PRINIVIL Last time this was given: 40 mg on August 15, 2023 8:31 AM Magnesium 250 MG TABS Take 1 tablet by mouth daily every morning. Last time this was given: Ask your nurse or doctor Metoprolol succinate 100 MG tablet XL 1 tablet daily every morning. Commonly known as: TOPROL-XL Last time this was given: 100 mg on August 12, 2023 9:03 AM predniSONE & diphenhydrAMINE 3 x 50 MG & 1 x 50 MG KIT Take 1 kit by mouth As directed. Take 50 mg prednisone 13 & 7 hrs prior to scans. Take 50 mg benadryl & 50 mg prednisone 1 hour prior. Ok to split kit if needed risedronate 35 MG TABS Take 1 tablet by mouth every 7 days. Commonly known as: ACTONEL SandoSTATIN LAR Dep[place] 20 MG KIT injection Inject 20 mg intramuscularly Once. Every 30 days Generic drug: Octreotide acetate Sertraline HCl 150 MG CAPS 150 mg daily every morning. Last time this was given: Ask your nurse or doctor Follow-up: Blanca Cruz MD [address] [facility] [id number] Chava Rodriguez MD [address] [facility] [facility] [id number] Upcoming Appointments (up to five)-Some appointments for Medical Center outpatient clinics or diagnostic testing locations are not displayed below Next 5 Appointments Provider Department Dept Phone 08/21/2023 10:10 AM Blanca Cruz Division of Medical Oncology 08/23/2023 11:15 AM Erwin David Clinical Lab [facility] 1 Arrive at: Arrive to [facility] First Floor Registration [phone] 09/12/2023 10:00 AM Chava Rodriguez Imaging [facility] 01/01/2024 10:00 AM DOUG [facility]OL[facility] BLOOD DRAW, [facility] Imaging [facility] Arrive at: Arrive to [facility] 1st Floor Registration. Appointments are taken in order of appointment time, not by arrival time [phone] 01/01/2024 11:[address] [facility], [facility] Division of Medical Oncology Arrive at: Arrive to First Floor Registration in the [facility] or [facility] Entrance [phone] 01/01/2024 11:20 AM [facility] MRI [address] [address] [place], [facility] Arrive at: Arrive to First Floor Registration in the [facility] or [facility] Entrance [phone] 01/10/2024 11:30 AM Erwin David Arrive at: Arrive to [facility] First Floor Registration [phone] Displaying the next 5 appointments. This patient has additional appointments scheduled. Associated attestation - Tawana Deluca MD - 08/15/2023 9:38 PM EDT Patient seen independently of Resident I have seen and examined this patient independently. I have reviewed the patient's vital signs, nursing notes, review of systems, medications, physical exam findings, laboratory tests, pertinent radiographic imaging, and problem list. I have read and edited the above note to reflect the details of my interview, exam, and medical decision making. I also have spoken with the patient and answered all the patient's questions to the best of my ability. I agree with the assessment and plan as writtenin note. Mary Jenkins is a 82 y.o. 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 Notes she is continues to feel better, notes abd pain is better. Jaundice decreasing. T bili down to 3.5 (from 8.6). RRR, S1/S2, lungs CTAB. Abd soft. MRI with no biliary dilatation or choledocholithiasis with stable hepatic lesions. Acute jaundice/conjugated hyperbilirubinemia - unclear etiology, developed ~24 hours after sandostatin injection. However has received previously and no elevations in bili. Appreciate GI recs, given stability on MRCP, no indication for ERCP. Blood cultures remain NGTD. Restarted home statin, stableLFTs. History of HTN - given low HRs, will hold home metoprolol. To f/up with cardio to discuss restarting. Referral placed. 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 Follows with Dr. David. Moved appt earlier to 08/22. Discharge to home Time spent on discharge: 35 mins Tawana Deluca MD, MPH Attending Physician, Medical Oncology Pager [phone] [facility] of Present illness Narrative* Carli Torres - 08/15/2023 9:53 AM EDT Appointment Details: [x] Scheduled Appointment(s) Doctor/ Clinic: Dr. David/ Neuroendocrine Med Onc Date: 08/23/23 Time: 11:15AM Arrival Time: 11:05AM Comments: Located at the [facility], 10th floor. Carli Torres CM/VENANCIO Compensation Supervisor Please contact the PCRM or castables worker assigned to this patient's care team during regular daytime hours. PCRM: If any changes are required of this individualized plan of care during evening or weekend hours and assistance is needed, please page the warning coordination meteorologist PCRM at [phone] Social Work: For Evening (4:30pm-8am) and Weekend SW needs please call [phone] or page [phone] * DARWIN Sosa - 08/14/2023 3:00 PM EDTSummary: Psychosocial Assessment Psychosocial Assessment Per chart review, patient is a 82 y.o., female, who was admitted for jaundice. VENANCIO met with patient and [id number] to introduce self, explain clinical social work therapist role during inpatient stay, and answer questions. Patient was alert and oriented x4 and agreeable to SW visit. Contact Information: Social Work Contact Name: Kristyn Singh Occ Therapist's Advance Directive Discussion: Per chart review, patient does not have any advance directives on file, however, patient reports that they have already completed advance directives and states the document(s) are at home. SW reviewed that without completed document on file, per [place] Law, her 3 adult children , would be their Legal NOK for decision making. SW requested patient provide the hospital with a copy of the document when possible so that it can be scanned into their medical record. Patientagreeable to this plan. Legal NOK: Patient's 3 adult children are her legal next of kin. Jade Chen, daughter, Savage Ramos, son, Tanner Ramos, son, Emotional/Psychological: Mood: congruent to situation, congruent to affect Current Interpersonal Conduct/Behavior: appropriate to situation, cooperative Mental Health Conditions/Symptoms: denies Previous Mental Health Treatment: medication (Zoloft) Distress Screen: In general, would you say your health is:: Good In general, would you say your quality of life is:: Good In general, rate your physical health?: Good In general, rate your mental health, mood and ability to think?: Good In general, how would you rate your satisfaction with your social activities and relationships?: Good To what extent are you able to carry out your everyday physical activities such as walking, climbing stairs, carrying groceries, or moving a chair?: Completely In general, please rate how well you carry out your usual social activities and roles. (This includes activities at home, at work and in your community, and responsibilities as a parent, child, spouse, employee, friend, etc.): Excellent In general, how satisfied have you been with your spiritual life?: Completely (Presbyterian) How would you rate your pain on average?: 7 How would you rate your fatigue on average?: Mild How often have you been bothered by emotional problems such as feeling anxious, depressed or irritable?: Rarely Patient Coping/Stress Concerns: Patient Coping/Stress Concerns: No Patient Personal Strengths: expressive of needs, expressive of emotions, elizabeth/spirituality, future/goal oriented, strong support system, positive attitude Sources Of Support: adult child(bentley), other family members Reaction To Health Status: accepting Understanding Of Condition And Treatment: adequate understanding of medical condition, adequate understanding of treatment Living Environment: Lives With: grandchild(bentley) (college aged grandson) Living Arrangement and Set Up: house (1 story house, ramp to enter) Caregiver Coping/Stress Concerns: Caregiver Coping/Stress Concerns: No Reaction To Health Status: accepting Employment/Financial: Employed?: Retired Employment/Financial Concerns: yes Source Of Income: social security, pension/penitentiary Food Insecurity: Within the past 12 months, you worried that your food would run out before you got the money to buymore.: Sometimes true Within the past 12 months, the food you bought just didn't last and you didn't have money to get more.: Sometimes true Housing Stability: In the last 12 months, was there a time when you were not able to pay the mortgage or rent on time?: No In the last 12 months, how many places have you lived?: 1 In the last 12 months, was there a time when you did not have a steady place to sleep or slept in ashelter (including now)?: No Utilities: In the past 12 months has the electric, gas, oil, or water [email or web address] threatened to shut off services in your home?: No Transportation Needs: In the past 12 months, has lack of transportation kept you from medical appointments or from getting medications?: No In the past 12 months, has lack of transportation kept you from meetings, work, or from getting things needed for daily living?: No Alcohol Use: Q1: How often do you have a drink containing alcohol?: Never Q2: How many drinks containing alcohol do you have on a typical day when you are drinking?: Patientdoes not drink Q3: How often do you have six or more drinks on one occasion?: Never Substance Use: How many times in the past year have you used illegal drugs?: Never Intimate Partner Violence: Within the last year, have you been afraid of your partner or ex-partner?: No Within the last year, have you been humiliated or emotionally abused in other ways by your partner or ex-partner?: No Within the last year, have you been kicked, hit, slapped, or otherwise physically hurt by your partner or ex-partner?: No Within the last year, have you been raped or forced to have any kind of sexual activity by your partner or ex-partner?: No Community Resources: Patient would benefit from financial resources, specifically for groceries/food. SW briefly discussed Senior Options. SW to provide additional information. Anticipated Discharge Plan: Anticipated Discharge Plan: Home Medical Team Considerations: None at this time. SW Interventions/Recommendations: Service SW name and contact information placed on white board in patient's room to contact as needed. SW will continue to remain available to provide assistance and support as needed during inpatient stay. ROLO Sosa, MIXER CRANE OPERATOR Oncology 1 Social Pager: [phone] For Evening (4:30pm-8am), Weekend, and Holiday SW needs please call [phone] or page [phone]. * Evie Gustafson, OT - 08/14/2023 11:13 AM EDT Acute Occupational Therapy Evaluation Prior Gross Functional Mobility: independent Current AM-PAC score(s): CURRENT AM-PAC Activity Raw Score: 24 Based on the above AM-PAC score(s) and OT clinical judgment, discharge destination recommendation is: Home Barriers to discharge home: (none) Mobility equipment available at home: 2 wheeled walker ADL equipment available at home: shower chair Equipment recommendations for discharge: none Current therapy frequency recommendation(s) in acute: no therapy warranted Activity Recommendations for outside of rehab session: supervision for long distance mobility with use of cane Precautions and Weightbearing Status: No critical lines at this time Patient Safety Communication Prior to Visit: Nursing Subjective: Pt reports she recently completed a shower and denies any difficulty performing. Pain: General Pain Documentation (Adult, OB, Peds) Presence of Pain: denies pain/discomfort Presence of Pain Score (Auto-calculated): 0 Home Setting Residence: House Lives With: grandchildren (college-aged grandson) First floor setup: bedroom, walk-in shower Number of stairs to enter home: ramp Number of stairs in home: 0 Mobility Equipment Available: 2 wheeled walker ADL Equipment Available: shower chair Previous Level of Function Gross Functional Mobility: independent Ambulation: independent with all needs Recreation/Leisure: hobbies - yes, see comment (gardening) IADL History IADL Comments: anne assists with lawn work and heavy lifting, pt still gardens and is very active Objective/Observation: Vitals/Vitals Responses to Treatment: no adverse reactions O2 Device: room air Vision Screen Currently wearing corrective lenses: No Speech Speech: no gross deficits noted Hearing Hearing: no gross deficits noted Cognition Overall Cognitive Status: Within Functional Limits ADLs: ADL Assessment: Assessed All ADLs ADL Anticipated Performance (ADLs not directly observed this session): Eating, Grooming, Bathing, LE Dressing, UE Dressing, Toileting Eating Assistance: Independent Grooming Assistance: Stand by Bathing Assistance: Modified independent Bathing Intervention/Details: pt recently finished a shower and denies any assist required or difficulty completing UE Dressing Assistance: Independent LE Dressing Assistance: Independent Toilet Assistance: Independent Extremity Assessments: RUE Assessment RUE Assessment: Within Functional Limits LUE Assessment LUE Assessment: Within Functional Limits Balance: Sitting Balance Static Sitting-Level of Assistance: Independent Dynamic Sitting-Level of Assistance: Independent Standing Balance Static Standing-Level of Assistance: Independent Dynamic Standing-Level of Assistance: Supervision Standing-Balance Support: Single point cane Neuro: Sensation Overall Sensation: Intact Gross Coordination Gross Coordination: bilat UE intact Skin and Edema: Mobility Assessment: Transfer Assessment: Sit to Stand Transfer Paulina Level: Sit->Stand: independent Stand to Sit Transfer Paulina Level: Stand->Sit: independent Functional Mobility: Functional Mobility Paulina Level: Functional Mobility/Gait: supervision Assistive Device: Functional Mobility/Gait: straight cane Functional Mobility Distance: Distance needed for community mobility Functional Mobility Deficits: Balance Functional Mobility Skilled Rationale: Verbal cues, Technique of activity Skilled Intervention/Details - Functional Mobility/Gait: cues for novel use of cane, pt exhibits good follow through and reports improvement with use of cane that PT ordered up to help with left kneepain and imbalance Wheelchair Assessment Patient currently uses wheelchair?: No Outcome Score(s): CURRENT AM-PAC Daily Activity Inpatient Short Form Putting on/Taking Off Lower Body Clothin - No Assistance Bathin - No Assistance Toiletin - No Assistance Putting on/Taking Off Upper Body Clothin - No Assistance Groomin - No Assistance Eatin - No Assistance CURRENT AM-PAC Activity Raw Score: 24 CURRENT AM-PAC Activity Functional Limitation/Modifier: 0.00% Currently Impaired in Daily Activity - Interventions: Assessment & Plan: Patient was admitted for jaundice and seen for therapy evaluation related to ADL assessment. Exam findings include impairments in: balance. These impairments contribute to occupational performance limitations including leisure integration. Patient Instruction/Education this session: Learners: Patient Education provided: Activity outside of therapy, Plan of care Teaching method: Verbal Education/Instruction Learner response: Applies knowledge Learning preferences: Auditory Learning considerations: No barriers/ready to learn Plan for next session: no therapy warranted Acute OT Goals Notes from 08/14/2023 1:24 AM through 08/14/2023 1:24 PM Pt will exhibit independence with all ADL tasks prior to discharge, MET OT treatment consisted of the following to work and progress towards the above goal(s): OT Evaluation and Treatment Time OT Evaluation (Low) Time Entry: 13 Evaluating Therapist: Evie Gustafson OT Additional Details: OT Co-Eval/Treatment Information Co-evaluation/co-treatment performed?: No simultaneous skilled care performed OT Evaluation Complexity Occupational Profile and Client History: Low - brief history Assessment of Occupational Performance: Low (1-3 performance deficits) Clinical Decision/Performance Deficits: Low (problem-focused assessments w/limited treatment options) Time In: 1113 Time Out: 1126 Total Visit Time: 13 minutes Total Treatment Time (skilled, billable minutes): 13 minutes PPE used during patient interaction: facemask, gloves Patient location at end of session: chair Alarms on at end of session: none altered Needs in reach. Upon discontinuation of Acute Care Occupational Therapy Services or patient discharge from the hospital this note represents the current Occupational Therapy Discharge Summary. * Junior Dior MD - 08/14/2023 9:46 AM EDT Internal Medicine Daily Progress Note Patient: Mary Jenkins, 1940, [id number] Physician: Junior Dior MD, PGY1, Pager #[phone], Onc 1service Subjective/Interval History: Patient is doing well this morning. She feels better and her pain is improving. She is concerned that this presentation is secondary to the Sandostatin. She is agreeable to discuss prevention of another episode with her outpatient oncologist in [place]. She moved her bowels No acute events overnight. Objective: Vitals: 08/14/23736 BP: 141/61 Pulse: 65 Resp: 16 Temp: 97.8 F (36.6 C) SpO2: 91% O2 Device: room air (08/14/23736) Gen: Jaundice skin and scleral icterus, improving from yesterday Cardio: RRR, no murmur Resp: Lungs clear to auscultation bilaterally GI: soft, non-distended, mild RUQ pain MSK: 1+ pitting edema of the lower extremities Ext: warm and well-perfused, no LE edema Neuro: alert and oriented, moving all four extremities Data Review: WBC/Hgb/Hct/Plts: 7.24/10.0/30.4/305 (08/13 353) Na/K+/Phos/Mg/Ca: 139/3.5/--/1.7/-- (08/13 353) Bun/Creat/Cl/CO2/Glucose: 16/0.73/101/27/119 (08/13 353) Ptt/Pt/Inr: 29.7/15.2/1.2 (08/13 353) 2015: Resection of parathyroid adenomas September 25, 2020: Liver core biopsy: [facility] read: A. Liver mass, CT-guided core biopsy: Metastatic well-differentiated neuroendocrine tumor, G2 Immunohistochemical stain performed at outside hospital TTF 1 negative S100 negative CK7 negative CK20 negative Napsin a negative CD117 negative P 40 negative Pancytokeratin positive NSE positive CD56 positive Synaptophysin positive Chromogranin positive Henry 2 positive CDX2 positive CK8 positive Ki-67: 6% Comment: The immunohistochemical profile suggests a gastrointestinal primary. 10/13/2020: FDG PET: Increased FDG distrubution noted in the region of the proximal ascending colong. Liver does not uptake FDG. 10/2020: Sandostatin q 28 days 12/29/2020: MRI A/P: IMPRESSION: 1. Probable mass involving the distal/terminal ileum which may represent the primary site of the known neuroendocrine tumor. No upstream bowel distention. No mesenteric masses. 2. Multiple lesions within the liver consistent with metastatic disease. Dominant lesion in posterior left lobe. 3. No adenopathy in the abdomen or pelvis. 4. Status post hysterectomy and cholecystectomy. 03/08/2021: laparoscopic right colectomy: A. Right colon and terminal ileum, laparoscopic right hemicolectomy: Well-differentiated neuroendocrine tumor, grade 1,involving the terminal ileum, see synoptic report Surgical margins are negative for tumor Tumor is panmural and involves the serosa Extensive perineural invasion 20 benign lymph nodes (0/20) Immunohistochemical stains for chromogranin and synaptophysin are positive. Manual quantitative immunohistochemistry for Ki-67 is 0%. Zero mitoses were seen in 2 mm2. 03/22/21- left hepatic lobe TAE by Dr. Rush 05/31/2021: Right hepatic lobe TAE 06/16/2021: Venous doppler: +acute DVT of right tibioperoneal trunk, peroneal, soleus veins. 06/19/2021 CT C/A/P multiple lesions of decreased attenuation within the liver worrisome for metastatic disease including a 7 cm lesion within the posterior segment the right lobe of the liver. There is diffuse atherosclerotic calcification of the abdominal aorta, without a demonstrated aneurysm. 08/13/2021 MRI A/P IMPRESSION: 1. Status post right hemicolectomy involving the previously described mass within the distal/terminal ileum, compatible with patient's known history of neuroendocrine tumor. No evidence of recurrence within the resection bed. No discrete mesenteric masses. 2. Status post interval transarterial bland embolization of lesions in segment 2/3 which has decreased in size (now measuring 3.0 x 2.4 cm, previously 4.6 x 4.1 cm.) however demonstrates persistent peripheral arterial phase enhancement, suggestive of viable disease. 3. Status post interval transarterial bland embolization lesion in segment 7. No definite abnormal enhancement is identified. Interval development of likely posttreatment confluent necrotic collections in this region. 4. Additional previously indexed arterially enhancing lesions in segment 4A/5 are not significantlychanged. 5. Focus of intrinsic T1 hyperintensity within the proximal common hepatic is suggestive of posttreatment hemobilia. No significant proximal intrahepatic biliary ductal dilation. Mild persistent prominence of the common bile duct could relate to postcholecystectomy ectasia. Assessment/Plan: Mary Jenkins is a 82 y.o. 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 Updates: - CXR - H&H at noon - Holding Eliquis in setting of Hgb drop - Imodium PRN - Holding RAT POISONER Toprol as HR in upper 50s this morning - Discontinue mIVF Jaundice Conjugated Hyperbilirubinemia Elevated Liver Enzymes Dark Urine All are improving On admission, total bilirubin, direct bilirubin, AST, ALT, and Alk phos were all elevated in a cholestatic pattern. RUQUS [place] 08/11 showed heterogeneous hyperechoic mass in the left hepatic lob corresponding to lesion seen on MRI in 04/08. It did not show any biliary ductal dilatation. MRCP on 08/11 showed no interval biliary dilatation, no evidence of choledocholithiasis. It showed stable hepatic lesions and no new abdominal metastatic disease. - GI consulted - MRCP completed and did not show an etiology amenable to endoscopic management - Trend LFTs - LFTs are improving - Plan to follow up with primary oncologist before next Sandostatin infusion to reassess - Discontinue mIVF Anemia On admission, Hgb 10.0 (9.6) this morning. - H&H every day Chills Patient reported chills in the ED. Has been afebrile. Blood cultures sent 08/11. No chills since - Blood cultures 08/11 - pending - CXR to assess for pulmonary pathology that could refer to RUQ Hx Atrial Fibrillation - home flecainide - home metoprolol held 08/12 as HR in upper 50s - elliquis Hx HLD - Holding RAT POISONER atorvastatin in setting of elevated LFTs Hx HTN - home lisinopril, amlodipine Hx T7 Compression Fracture Hx Osteoporosis - Holding home Risedronate Hx Diarrhea - improving to only 3 BM yesterday an none this morning. Has had no diarrhea that wakes her at night - Reported diarrhea after eating - Imodium PRN Any conditions listed below are present on admission unless otherwise specified. . DVT PPX: eliquis Code Status: Full Code Disposition: home tomorrow after 1 more day of stable vials and improvement in Cr, Bili, Hgb, and LFTs Discussed with team and attending, Dr. Deluca, on rounds. Signed, Junior Dior MD Associated attestation - Tawana Deluca MD - 08/14/2023 5:20 PM EDT Patient seen independently of Resident I have seen and examined this patient independently. I have reviewed the patient's vital signs, nursing notes, review of systems, medications, physical exam findings, laboratory tests, pertinent radiographic imaging, and problem list. I have read and edited the above note to reflect the details of my interview, exam, and medical decision making. I also have spoken with the patient and answered all the patient's questions to the best of my ability. I agree with the assessment and plan as writtenin note. Mary Jenkins is a 82 y.o. 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 Notes she is continues to feel better, notes abd pain is better. Jaundice decreasing. T bili down to 4.1 (from 8.6). RRR, S1/S2, lungs CTAB. Abd soft. MRI with no biliary dilatation or choledocholithiasis with stable hepatic lesions. Acute jaundice/conjugated hyperbilirubinemia - unclear etiology, developed ~24 hours after sandostatin injection. However has received previously and no elevations in bili. Appreciate GI recs, given stability on MRCP, no indication for ERCP. Will f/up blood cultures given chills - remain NGTD. Restating home statin, monitor LFTs. 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 Follows with Dr. David. Moved appt earlier to 08/22. Discharge pending hyperbilirubinemia mgt and blood culture follow-up. aTwana Deluca MD, MPH Attending Physician, Medical Oncology Pager [phone] * Daniella Martinez, PT - 08/14/2023 8:19 AM EDT Acute Physical Therapy Evaluation Prior Gross Functional Mobility: independent Current AM-PAC score(s): CURRENT AM-PAC Mobility Raw Score: 23 Based on the above AM-PAC score(s) and PT clinical judgment, patient is a good candidate for discharge to Home Barriers to discharge home: None Mobility equipment available at home: 2 wheeled walker ADL equipment available at home: shower chair Equipment needed for discharge: standard cane Current therapy frequency recommendation in acute: Therapy Frequency: 1 time a week Activity Recommendations for outside of rehab session: supervision for hallway ambulation Precautions and Weightbearing Status: Existing Precautions/Restrictions: fall No critical lines at this time Patient Safety Communication Prior to Visit: Nursing Subjective: I'm usually out in my garden. Pain: General Pain Documentation (Adult, OB, Peds) Presence of Pain: denies pain/discomfort Presence of Pain Score (Auto-calculated): 0 Home Setting Residence: House Lives With: grandchildren (college-aged grandson) First floor setup: bedroom, walk-in shower Number of stairs to enter home: ramp Number of stairs in home: 0 Mobility Equipment Available: 2 wheeled walker ADL Equipment Available: shower chair Previous Level of Function Gross Functional Mobility: independent Ambulation: independent with all needs Recreation/Leisure: hobbies - yes, see comment (gardening) Objective/Observation: Vitals/Vitals Responses to Treatment: No adverse events during session Cognition Overall Cognitive Status: Within Functional Limits Arousal/Alertness: Appropriate responses to stimuli Orientation Level: Oriented X4 Following Commands: Follows all commands and directions without difficulty Vision Screen Currently wearing corrective lenses: No Speech Speech: no gross deficits noted Extremity Assessments: RLE Assessment RLE Assessment: Within Functional Limits LLE Assessment LLE Assessment: Strength Impaired Left LE Assessment Details: grossly 4/5 Sensation Overall Sensation: Intact Skin Integrity Skin Integrity Description: WFL Edema Edema: none noted Mobility Assessment: Supine to Sit Mobility Paulina Level: Supine->Sit: [facility] Features/Set-up: Supine->Sit: Head of bed elevated Balance: Sitting Balance Static Sitting-Level of Assistance: Independent Dynamic Sitting-Level of Assistance: Independent Standing Balance Static Standing-Level of Assistance: Independent Dynamic Standing-Level of Assistance: Supervision Standing-Balance Support: No upper extremity supported Standing Balance Skilled Intervention/Details: Pt with 1 prolonged standing bout during session. Transfer Assessment: Sit to Stand Transfer Paulina Level: Sit->Stand: independent Skilled Intervention/Details: Sit->Stand: x1 from EOB Gait/Functional Mobility: Gait Assessment Paulina Level: Gait: supervision Ambulation Distance (Feet): 400 Gait Deviations Identified: decreased gait speed, decreased step length Gait Skilled Rationale: verbal Skilled Intervention/Details - Gait: Mild antalgic gait pattern (per pt, had been planning on having left knee surgery). Trialed right hand-held assist to simulate cane, improvement in fluidity of gait pattern. Stairs: Outcome Score(s): CURRENT [facility] Basic Mobility Inpatient Short Form Turning over in bed: 4 - No Assistance Moving from lying on back to sittin - No Assistance Moving to and from bed to chair: 4 - No Assistance Sitting/standing from chair: 4 - No Assistance Walk in hospital room: 4 - No Assistance Climbing 3-5 steps with a railin - A Little Assistance CURRENT [facility] Mobility Raw Score: 23 CURRENT [facility] Mobility Functional Limitation: 11.20% Impaired in Basic Mobility Interventions: Assessment & Plan: Patient was admitted for acute jaundice and seen for therapy evaluation related to functional mobility impairments secondary to hospital course impacting independence. Exam findings include impairments in: Strength, Gait/Locomotion. These impairments contribute to functional limitations including Decreased ambulation distance/endurance, Decreased functional mobility. Current clinical presentation is Stable - unchanging or predictable (Low). Patient history factors impacting Plan Of Care include PMH. Patient will benefit from skilled physical therapy to address these impairments, functional limitations, and participation restrictions and has good rehab potentialto achieve therapy goals. Planned Therapy Interventions: balance training, strengthening, gait training Patient Instruction/Education this session: Learners: Patient Education provided: Activity outside of therapy, Discharge recommendations Teaching method: Verbal Education/Instruction Learner response: Applies knowledge Learning preferences: Auditory Learning considerations: No barriers/ready to learn Patient Instruction/Education comments: Discussion about increasing frequency of ambulation throughout course of the day while in the hospital. Discussion about progressive activity while at [facility]. Reviewed step sequencing with cane. Plan for next session: Review step sequencing with cane Acute PT Goals Plan of Care by Daniella Martinez PT at 08/14/2023 8:19 AM Version 1 of 1 Problem: PT - General Goals Goal: Ambulation - Patient will ambulate 500 feet with modified independence and cane to improve ability to safely navigate home and community. Outcome: Ongoing Goal: Strength - Patient will demonstrate understanding of exercise program. Outcome: Ongoing Problem: PT - Outcome Measure Goals Goal: TUG - Patient will perform the Timed Up and Go (TUG) in less than 13.5 seconds to demonstratereduced fall risk. Outcome: Ongoing PT treatment consisted of the following to progress towards the above goal(s): PT Evaluation and Treatment Time PT Evaluation (Low) Time Entry: 17 Evaluating Therapist: Daniella Martinez PT Additional Details: PT Co-Eval/Treatment Information Co-evaluation/co-treatment performed?: No simultaneous skilled care performed Evaluation Complexity Components History: Moderate (1-2 personal factors and/or comorbidities) Body Systems Review: Low (Addressing 1-2 elements) Clinical Presentation: Stable - unchanging or predictable (Low) Clinical Decision Making: Low Time In: 818 Time Out: 835 Total Visit Time: 17 minutes Total Treatment Time (skilled, billable minutes): 17 minutes PPE used during patient interaction: gloves Patient location at end of session: chair, RN aware Alarms on at end of session: none altered Needs in reach. Upon discontinuation of Acute Care Physical Therapy Services or patient discharge from the hospitalthis note represents the current Physical Therapy Discharge Summary. * Chai Espinosa MD - 08/13/2023 9:55 AM EDT Internal Medicine Daily Progress Note Patient: Mary Jenkins, 1940, [id number] Physician: Chai Espinosa MD, PGY1, Pager #[phone], Onc 1service Subjective/Interval History: Patient is doing well this morning. She feels better and her pain is improving. She is concerned that this presentation is secondary to the Sandostatin. No acute events overnight. Objective: Vitals: 08/13/2300 BP: 143/64 Pulse: 59 Resp: 16 Temp: 97.9 F (36.6 C) SpO2: 94% O2 Device: room air (08/13/23 0800) Gen: Jaundice skin and eyes, improving HENT: EOMI Cardio: RRR, no murmur Resp: Lungs clear to auscultation bilaterally GI: soft, non-distended, mild RUQ pain MSK: no joint swelling or erythema Ext: warm and well-perfused, no LE edema Neuro: alert and oriented, moving all four extremities Data Review: WBC/Hgb/Hct/Plts: 11.12/9.6/28.8/279 (08/12 504) Na/K+/Phos/Mg/Ca: 140/3.3/--/1.7/-- (08/12 504) Bun/Creat/Cl/CO2/Glucose: 22/0.68/103/25/163 (08/12 504) Ptt/Pt/Inr: 108.4/16.3/1.3 (08/12 504) 2015: Resection of parathyroid adenomas September 25, 2020: Liver core biopsy: [facility] read: A. Liver mass, CT-guided core biopsy: Metastatic well-differentiated neuroendocrine tumor, G2 Immunohistochemical stain performed at outside hospital TTF 1 negative S100 negative CK7 negative CK20 negative Napsin a negative CD117 negative P 40 negative Pancytokeratin positive NSE positive CD56 positive Synaptophysin positive Chromogranin positive Henry 2 positive CDX2 positive CK8 positive Ki-67: 6% Comment: The immunohistochemical profile suggests a gastrointestinal primary. 10/13/2020: FDG PET: Increased FDG distrubution noted in the region of the proximal ascending colong. Liver does not uptake FDG. 10/2020: Sandostatin q 28 days 12/29/2020: MRI A/P: IMPRESSION: 1. Probable mass involving the distal/terminal ileum which may represent the primary site of the known neuroendocrine tumor. No upstream bowel distention. No mesenteric masses. 2. Multiple lesions within the liver consistent with metastatic disease. Dominant lesion in posterior left lobe. 3. No adenopathy in the abdomen or pelvis. 4. Status post hysterectomy and cholecystectomy. 03/08/2021: laparoscopic right colectomy: A. Right colon and terminal ileum, laparoscopic right hemicolectomy: Well-differentiated neuroendocrine tumor, grade 1,involving the terminal ileum, see synoptic report Surgical margins are negative for tumor Tumor is panmural and involves the serosa Extensive perineural invasion 20 benign lymph nodes (0/20) Immunohistochemical stains for chromogranin and synaptophysin are positive. Manual quantitative immunohistochemistry for Ki-67 is 0%. Zero mitoses were seen in 2 mm2. 03/22/21- left hepatic lobe TAE by Dr. Rush 05/31/2021: Right hepatic lobe TAE 06/16/2021: Venous doppler: +acute DVT of right tibioperoneal trunk, peroneal, soleus veins. 06/19/2021 CT C/A/P multiple lesions of decreased attenuation within the liver worrisome for metastatic disease including a 7 cm lesion within the posterior segment the right lobe of the liver. There is diffuse atherosclerotic calcification of the abdominal aorta, without a demonstrated aneurysm. 08/13/2021 MRI A/P IMPRESSION: 1. Status post right hemicolectomy involving the previously described mass within the distal/terminal ileum, compatible with patient's known history of neuroendocrine tumor. No evidence of recurrence within the resection bed. No discrete mesenteric masses. 2. Status post interval transarterial bland embolization of lesions in segment 2/3 which has decreased in size (now measuring 3.0 x 2.4 cm, previously 4.6 x 4.1 cm.) however demonstrates persistent peripheral arterial phase enhancement, suggestive of viable disease. 3. Status post interval transarterial bland embolization lesion in segment 7. No definite abnormal enhancement is identified. Interval development of likely posttreatment confluent necrotic collections in this region. 4. Additional previously indexed arterially enhancing lesions in segment 4A/5 are not significantlychanged. 5. Focus of intrinsic T1 hyperintensity within the proximal common hepatic is suggestive of posttreatment hemobilia. No significant proximal intrahepatic biliary ductal dilation. Mild persistent prominence of the common bile duct could relate to postcholecystectomy ectasia. Assessment/Plan: Mary Jenkins is a 82 y.o. 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 Updates: - CXR - H&H at noon - Holding Eliquis in setting of Hgb drop - Imodium PRN - Holding RAT POISONER Toprol as HR in upper 50s this morning - Discontinue mIVF Jaundice Conjugated Hyperbilirubinemia Elevated Liver Enzymes Dark Urine On admission, total bilirubin, direct bilirubin, AST, ALT, and Alk phos were all elevated in a cholestatic pattern. RUQUS [place] 08/11 showed heterogeneous hyperechoic mass in the left hepatic lob corresponding to lesion seen on MRI in 04/08. It did not show any biliary ductal dilatation. MRCP on 08/11 showed no interval biliary dilatation, no evidence of choledocholithiasis. It showed stable hepatic lesions and no new abdominal metastatic disease. - GI consulted - MRCP completed and did not show an etiology amenable to endoscopic management - Trend LFTs - LFTs are improving - Plan to follow up with primary oncologist before next Sandostatin infusion to reassess - Discontinue mIVF Anemia On admission, Hgb 11.3. Down to 9.6 this morning. - H&H recheck at noon Chills Patient reported chills in the ED. Has been afebrile. Blood cultures sent 08/11. - Blood cultures 08/11 - pending - CXR to assess for pulmonary pathology that could refer to RUQ Hx Atrial Fibrillation - RAT POISONER flecainide - RAT POISONER metoprolol held 08/12 as HR in upper 50s - Holding RAT POISONER Eliquis in setting of hgb drop Hx HLD - Holding RAT POISONER atorvastatin in setting of elevated LFTs Hx HTN - RAT POISONER lisinopril, amlodipine Hx T7 Compression Fracture Hx Osteoporosis - Holding RAT POISONER Risedronate Hx Diarrhea - Reported diarrhea after eating - Imodium PRN Complexity. Hypokalemia - Continue to monitor and replete. Any conditions listed below are present on admission unless otherwise specified. . DVT PPX: Code Status: Full Code Disposition: Discussed with team and attending, Dr. Deluca, on rounds. Signed, Chai Espinosa MD Associated attestation - Tawana Deluca MD - 08/13/2023 6:17 PM EDT Patient seen independently of Resident I have seen and examined this patient independently. I have reviewed the patient's vital signs, nursing notes, review of systems, medications, physical exam findings, laboratory tests, pertinent radiographic imaging, and problem list. I have read and edited the above note to reflect the details of my interview, exam, and medical decision making. I also have spoken with the patient and answered all the patient's questions to the best of my ability. I agree with the assessment and plan as writtenin note. Mary Jenkins is a 82 y.o. 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 Notes she is overall doing better, notes abd pain is better. Jaundiced decreased. T bili down to 5.5. RRR, S1/S2, lungs CTAB. Abd soft. MRI with no biliary dilatation or choledocholithiasis with stable hepatic lesions. Acute jaundice/conjugated hyperbilirubinemia - unclear etiology, developed ~24 hours after sandostatin injection. However has received previously and no elevations in bili. Appreciate GI recs, given stability on MRCP, no indication for ERCP. Will f/up blood cultures given chills. 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 Follows with Dr. David. Arranging earlier visit given timing of hyperbili with sandostatin in jection. Discharge pending hyperbilirubinemia mgt and blood culture follow-up. Tawana Deluca MD, MPH Attending Physician, Medical Oncology Pager [phone] [facility] Nurse Note* Nursing Notes - Jj Petersen RN - 08/14/2023 4:03 PM EDT 08/14/23 1549 Referral Information Arrived From emergency department Readmission Information Was patient readmitted within 30 Days? No Information Source Information Source patient ;review of medical record ([id number] at beside) Outpatient Providers Outpatient Providers Updated In IHIS Yes Contact Information Readiness Paraprofessional/SW Added to Care Team Yes This Funding Coordinator is Primary Readiness Paraprofessional/SW Yes Readiness Paraprofessional Name Conchis Benavides Readiness Paraprofessional's Social Work Contact Name Kristyn Benavides Occ Therapist's Living Environment Lives With grandchild(bentley) Living Arrangement and Set Up house Provides Primary Care For no one Primary Care Provided By self Support System Immediate family Able to Return to Prior Arrangements yes Functional Status Patient's Functional Status Prior To This Admission? Independent Are There Status Changes This Admission? No Changes Observed Since Admission? No Changes Observed Concerns With Patient Being Able To Care For Themselves At Discharge? No Employment/Financial Employed? 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[place], [place] Employment/Financial Concerns no Source Of Income social security;pension/penitentiary Insurance Medical Insurance Verified Yes Prescription Coverage Yes Pharmacy updated in IS Yes Initial Discharge Planning Home Care Services (RAT POISONER) No Patient Goal for Discharge Return home with assistance from family and friends Anticipated discharge disposition Home Anticipated Services at Discharge Outpatient follow up Anticipated Changes Related to Illness none Current Discharge Risk chronically ill Transportation Available family or friend will provide Home Care Services (RAT POISONER) Additional Home Care Services (RAT POISONER) no Assessment/Concerns to be Addressed Concerns To Be Addressed denies needs/concerns at this time PCRM Initial Assessment Met with patient and [id number] at bedside to complete the initial assessment. Explained role and function of PCRM in multidisciplinary team. Contact number provided for questions. Demographic information reviewed with patient/family and confirmed as correct. Reason for Admission: Acute Jaundice Estimated length of stay: 1-7 days Advance directives Patient does not have Advanced Directives on File Lines/Drains/Tubes Not applicable Initial PCRM Discharge Planning Patient lives in a house with her grandson and states she has been independent. Patient ambulates without the need for ambulatory device. Patient denies any needs at this time. Final plan will be determined closer to discharge, pending therapy and medical team recommendations. Patient/family verbalized understanding and agreement with the plan of care. Patient/family have no questions at this time. PCRM will continue to follow patient with multidisciplinary team for ongoing assessment of needs and for discharge planning. Medical team updated. Conchis SHEPHERD, RN Patient Care Violin Restorer Onc 1 Inpatient Service [facility]07-01-[facility] Plan of care note* Plan of Care - Daniella Martinez PT - 08/14/2023 8:19 AM EDT Problem: PT - General Goals Goal: Ambulation - Patient will ambulate 500 feet with modified independence and cane to improve ability to safely navigate home and community. Outcome: Ongoing Goal: Strength - Patient will demonstrate understanding of exercise program. Outcome: Ongoing Problem: PT - Outcome Measure Goals Goal: TUG - Patient will perform the Timed Up and Go (TUG) in less than 13.5 seconds to demonstratereduced fall risk. Outcome: Ongoing [facility]06-30-2024 Plan of care note* Plan of Care - Marcus Jaime MD - 08/13/2023 2:48 PM EDT GI Plan of Care: Chart reviewed - LFTs with some improvement from yesterday with Tbili 5.5 and ALP 352, down from 8.6 and 444 yesterday, respectively We reviewed her MRI/MRCP results and no biliary dilation or obstructive stone is seen. No reversible etiology amenable to endoscopic therapy. Suspect LFT abnormalities are secondary to hepatic metastatic disease. PB team will sign off, please reach out with questions. Marcus Jaime MD [facility]06-30-2024 Consult note* Mary Bowman RN - 08/13/2023 8:02 AM EDT Vascular Access Procedure Note for Ultrasound Guided PIV Placement Assessment Mary Jenkins seen and evaluated for peripheral IV insertion using ultrasound guidance. ID band present, allergies verified and patient/nurse questioned of limb precautions. Skin integrity assessed, no evidence of condition that would prevent safe insertion of a peripheral IV with ultrasound. Allergies: Allergies Allergen Reactions Contrast Dye [Ivp Dye, Iodine Containing] Anaphylaxis Takes prednisone & benadryl prior to CT scans as pre-meds Penicillin G Other reaction(s): Shortness of breath, edema Insertion Ultrasound guided PIV: Peripheral IV placed per aseptic technique under ultrasound guidance on first attempt(s). []Obtained labs. Peripheral IV Line - Single Lumen 08/13/23 0801 forearm, anterior, left 20 gauge;1 3/4 in length (Active) 08/13/23 08 Present On Admission : Guiding Device: ultrasound Lumen 1: Additional Lumens: Lumen 2: Location: forearm, anterior, left Device/Lot Number: [id number] catheter system Gauge/Length: 20 gauge;1 3/4 in length Unsuccessful Insertion Attempts: 0 Unsuccessful Attempt Location/Site: Pain Prevention/Patient Tolerance: distraction;tolerated well Removal: Additional Comments: Lumen 3: Peripheral IV Present on Admission: (Retired/Read Only) Location: (Retired/Read Only) Device: (Retired/Read Only) Gauge/Length: Pipelines Superintendent/Lot Number: Unsuccessful Insertion Attempts: (Retired/Read Only) Unsuccessful Attempt Locations: Pain Prevention: Patient Tolerance: Insertion: Removal Indication: Peripheral IV Location - Orientation: Peripheral IV Location: Insertion Site WDL WDL 08/13/23799 Site Preparation/Maintenance site cleansed: chlorhexidine solution;dressing: dry and intact;dressing: transparent semipermeable 08/13/23799 Date Dressing Changed 08/13/23 08/13/23799 Lumen 1 Patency/Maintenance flushed without difficulty;blood return, able to obtain 08/13/23799 Date Lumen 1 Cap/Connector Changed/Applied 08/13/23 08/13/23799 Phlebitis 0-->no symptoms 08/13/23799 Infiltration 0-->no symptoms 08/13/23799 Positive blood return noted, flushes easily, no edema, or leakage noted. Stabilization device used to secure IV, occlusive dressing applied. Denies pain at site. Patient tolerated procedure well. Site dated and initialed. duncan RN notified of procedure completion Education Patient/Family informed to notify nurse of any complications including pain, redness, swelling, or leakage post insertion. Pt safety room check completed prior to exiting room. [x]Call light. [x]Bed locked. [x]Bed low. [x]Tray table within reach. Thank you for allowing our team to participate in the care of this patient. Vascular Access Team [id number] [facility]-30[facility] Consult note* Mary Bowman RN - 08/13/2023 8:02 AM EDT Vascular Access Procedure Note for Ultrasound Guided PIV Placement Assessment Mary Jenkins seen and evaluated for peripheral IV insertion using ultrasound guidance. ID band present, allergies verified and patient/nurse questioned of limb precautions. Skin integrity assessed, no evidence of condition that would prevent safe insertion of a peripheral IV with ultrasound. Allergies: Allergies Allergen Reactions Contrast Dye [Ivp Dye, Iodine Containing] Anaphylaxis Takes prednisone & benadryl prior to CT scans as pre-meds Penicillin G Other reaction(s): Shortness of breath, edema Insertion Ultrasound guided PIV: Peripheral IV placed per aseptic technique under ultrasound guidance on first attempt(s). []Obtained labs. Peripheral IV Line - Single Lumen 08/13/23800 forearm, anterior, left 20 gauge;1 3/4 in length (Active) 08/13/23800 Present On Admission : Guiding Device: ultrasound Lumen 1: Additional Lumens: Lumen 2: Location: forearm, anterior, left Device/Lot Number: [id number] catheter system Gauge/Length: 20 gauge;1 3/4 in length Unsuccessful Insertion Attempts: 0 Unsuccessful Attempt Location/Site: Pain Prevention/Patient Tolerance: distraction;tolerated well Removal: Additional Comments: Lumen 3: Peripheral IV Present on Admission: (Retired/Read Only) Location: (Retired/Read Only) Device: (Retired/Read Only) Gauge/Length: Pipelines Superintendent/Lot Number: Unsuccessful Insertion Attempts: (Retired/Read Only) Unsuccessful Attempt Locations: Pain Prevention: Patient Tolerance: Insertion: Removal Indication: Peripheral IV Location - Orientation: Peripheral IV Location: Insertion Site WDL WDL 08/13/23799 Site Preparation/Maintenance site cleansed: chlorhexidine solution;dressing: dry and intact;dressing: transparent semipermeable 08/13/23799 Date Dressing Changed 08/13/23 08/13/23799 Lumen 1 Patency/Maintenance flushed without difficulty;blood return, able to obtain 08/13/23799 Date Lumen 1 Cap/Connector Changed/Applied 08/13/23 08/13/23799 Phlebitis 0-->no symptoms 08/13/23799 Infiltration 0-->no symptoms 08/13/23799 Positive blood return noted, flushes easily, no edema, or leakage noted. Stabilization device used to secure IV, occlusive dressing applied. Denies pain at site. Patient tolerated procedure well. Site dated and initialed. duncan SCOTT notified of procedure completion Education Patient/Family informed to notify nurse of any complications including pain, redness, swelling, or leakage post insertion. Pt safety room check completed prior to exiting room. [x]Call light. [x]Bed locked. [x]Bed low. [x]Tray table within reach. Thank you for allowing our team to participate in the care of this patient. Vascular Access Team [id number] * Marcus Jaime MD - 08/12/2023 4:51 AM EDTAssociated Order(s): IP CONSULT TO GASTROENTEROLOGY N [facility] PB Consult For urgent/stat calls or consults 5pm to 7am or all day on the weekend, please page the on-call GI fellow on QGenda. [facility]--> Internal Medicine--> Gastroenterology, Hepatology, & Nutrition--> 1st Call Fel Lynn OR STAT/NEW GI Cons Wknd For follow up questions regarding this patient 7am to 5pm, contact the PB consults fellow or TRISH onQGenda. [facility]--> Internal Medicine--> Gastroenterology, Hepatology, & Nutrition-->PB Consult Service OR PB Consult Service TRISH Day GASTROENTEROLOGY INPATIENT CONSULT Referring Provider: Tawana Deluca MD Admit Date: 08/12/2023 Reason for Consultation: c/f biliary obstruction HISTORY OF PRESENT ILLNESS: Mary Jenkins is a 82 y.o. 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 We are consulted due to concern for biliary obstruction. Ms Jenkins began feeling unwell around 1 week ago. She notes a pain in her epigastrium and RUQ painthat radiates to her back and has had some associated nausea and chills. On Monday night she began noticing increasingly dark urine. Family noticed that she appeared jaundiced and ultimately presented to her PCP yesterday and she had outpatient labs done showing an elevated bilirubin so she was advised to present to the hospital for further evaluation. Here, she has been afebrile, VSS, on room air. Labs show normal WBC count, Hgb 11.3, plt 286. Hypokalemia to 3, Cr 0.78. LFT show Tbili 8.6 (Dbili 5.4), ALP 455, AST 67, ALT 49 (LFT when last checked showed 06/30/23 showed ALP 245 but otherwise normal). Normal lipase. RUQ ultrasound shows a heterogeneous hyperechoic mass in the L hepatic lobe but normal CBD caliber of 6 mm and no intrahepatic biliary dilation. PAST MEDICAL HISTORY: PAST MEDICAL HISTORY Past Medical History: Diagnosis Date Arrhythmia atrial fibrillation Essential hypertension, benign History of cancer Hyperlipidemia Rheumatic fever PAST SURGICAL HISTORY Past Surgical History: Procedure Laterality Date OCCLUSION/EMBOLIZATION ENDOVASCULAR TUMORS/ORGAN ISCHEMIA/INFARCTION N/A 05/31/2021 Laterality: N/A; Surgeon: Humberto Rush MD; Location: [facility] INTERVENTIONAL RADIOLOGY (VIR) OCCLUSION/EMBOLIZATION ENDOVASCULAR TUMORS/ORGAN ISCHEMIA/INFARCTION N/A 03/22/2021 Laterality: N/A; Surgeon: Humberto Rush MD; Location: [facility] INTERVENTIONAL RADIOLOGY (VIR) COLECTOMY PARTIAL LAPAROSCOPIC Right 03/08/2021 Laterality: Right; Surgeon: Rodrigo López MD; Location: [facility] MAIN OR PARATHYROIDECTOMY 2014 removed 2 nodules APPENDECTOMY BREAST LUMPECTOMY Left Benign per pt report; approximately age 41 CHOLECYSTECTOMY HYSTERECTOMY KNEE SURGERY ORIF WRIST Left OTHER SURGICAL spine surgery for T8 fracture. CURRENT MEDICATIONS amLODIPine 5 mg Oral QAM apixaban 5 mg Oral Q12H cholecalciferol 2,000 Units Oral Daily Flecainide 100 mg Oral Q12H lisinopril 40 mg Oral QAM magnesium oxide 400 mg Oral Daily Metoprolol succinate 100 mg Oral QAM Polyethylene glycol 17 g Oral Daily predniSONE 50 mg Oral Q6HNS Senna 8.6 mg Oral Daily Sertraline 150 mg Oral Daily ALLERGIES Allergies Allergen Reactions Contrast Dye [Ivp Dye, Iodine Containing] Anaphylaxis Takes prednisone & benadryl prior to CT scans as pre-meds Penicillin G Other reaction(s): Shortness of breath, edema SOCIAL HISTORY She reports that she has never smoked. She has never used smokeless tobacco. She reports that she does not currently use alcohol. She reports that she does not use drugs. FAMILY HISTORY Family History Problem Relation Age of Onset Coronary Artery Disease Father Cancer- Other Paternal Uncle lip cancer Uterine Cancer Paternal Grandmother Thyroid Cancer Daughter 44 total thyroidectomy- follicular & papillary Breast Cancer Cousin REVIEW OF SYSTEMS: 10-point ROS negative unless otherwise noted in HPI. Review of Systems PHYSICAL EXAM: Temp: [97.6 F (36.4 C)-98.3 F (36.8 C)] 98 F (36.7 C) Pulse (Heart Rate): [59-74] 74 Resp Rate: [15-18] 16 BP: (143-173)/(68-90) 173/70 O2 Sat (%): [95 %-98 %] 95 % Weight: [70.3 kg (155 lb)] 70.3 kg (155 lb) Wt Readings from Last 3 Encounters: 08/12/23 70.3 kg (155 lb) 06/30/23 71.8 kg (158 lb 6.4 oz) 03/31/23 72.1 kg (159 lb) General: awake, alert, no apparent distress HEENT: + scleral icterus, MMM Cardiovascular: Regular rate and rhythm, normal S1/S2, no murmurs/rubs/gallops Pulmonary: Clear to auscultation bilaterally Abdomen: Soft, tender to palpation in epigastrium and RUQ, non-distended Extremities: Warm and well perfused, no edema Skin: Warm, dry, no rashes Neurological: Alert and oriented x3, no focal deficits Psychiatric: Normal affect, normal mood, pleasant demeanor LABS: CBC: Lab Results Component Value Date WBC 8.78 08/11/2023 HGB 11.3 (L) 08/11/2023 PLATELET 286 08/11/2023 MCV 84.1 08/11/2023 Chemistry: Lab Results Component Value Date SODIUM 135 08/11/2023 POTASSIUM 3.0 (L) 08/11/2023 CHLORIDE 100 08/11/2023 CO2 23 08/11/2023 BUN 12 08/11/2023 CREATSERUM 0.78 08/11/2023 GLUCOSE 132 (H) 08/11/2023 MAGNESIUM 1.9 08/11/2023 Liver Function Tests: Lab Results Component Value Date ALT 49 (H) 08/11/2023 AST 67 (H) 08/11/2023 ALKPHOS 455 (H) 08/11/2023 BILITOTAL 8.6 (H) 08/11/2023 BILIDIRECT 5.4 (H) 08/11/2023 INR 1.0 05/31/2021 IMAGING/STUDIES: All relevant imaging and procedures were reviewed. ASSESSMENT AND PLAN: Mary Jenkins is a 82 y.o. 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 We are consulted due to concern for biliary obstruction. Ms Jenkins presents with around 1 week of pain in her epigastrium and RUQ pain that radiates to herback as well as some associated nausea/chills and found to be jaundiced. Her LFT have risen significantly in a cholestatic pattern from when they were last checked in June 2023 with current Tbili 8.6,ALP 45, AST 67, ALT 49. Differential for LFT elevation includes hepatic metastases, though given how quickly LFTs linden would be more concerned for possibility of stone (though has had prior cholecystectomy). RUQ ultrasound also does not show any significant CBD dilation or intrahepatic biliary dilation. Recommend MRI/MRCP to further evaluate biliary tree for obstruction and further evaluate for possible infiltrative process that could be driving cholestatic LFT elevation. IMPRESSION Elevated LFT, cholestatic pattern Jaundice Metastatic neuroendocrine cancer with mets to liver Abdominal pain ASSESSMENT/RECOMMENDATIONS: Please obtain an MRI with and without contrast with MRCP Monitor daily LFTs Low threshold to start antibiotics should she become febrile GI will follow This consult was discussed with Dr. Romero, the attending physician. If you have any questions or need any further information, please feel free to contact our consult team. Thank you for this consult and allowing us to participate in the care of Mary Jenkins! Marcus Jaime MD Fellow Physician Division of Gastroenterology, Hepatology & Nutrition Department of Internal Medicine [facility] Pager [phone] or Epic Chat with questions For urgent/stat calls or consults 5pm to 7am or all day on the weekend, please page the on-call GI fellow on QGenda. [facility]--> Internal Medicine--> Gastroenterology, Hepatology, & Nutrition--> 1st Call Fel Lynn OR STAT/NEW GI Cons Wknd For follow up questions regarding this patient 7am to 5pm, contact the PB consults fellow or TRISH onQGenda. [facility]--> Internal Medicine--> Gastroenterology, Hepatology, & Nutrition-->PB Consult Service OR PB Consult Service TRISH Associated attestation - Lorenzo Romero MD - 08/13/2023 12:05 AM EDT Patient was seen and examined with the house staff. I have reviewed the chart and all the relevant data including prior procedures, medications, PMH, PSH, Social history and family history. I have reviewed the house staff's note and I agree with the history, examination and medical decision making in the note with the following addendum: . 82 y.o. 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 Labs showed mixed hyperbilirubinemia with bili 8.6 and ALP 444. She underwent MRI/MRCP that showed no evidence of choledocholithiasis or biliary dilation. GI is consulted to evaluate for jaundice and rule out biliary obstruction. Jaundice secondary to mixed hyperbilirubinemia secondary to metastatic liver disease. No evidence of CBD obstruction, dilation or stones noted. Will recommend supportive care for now. No reversible etiology for hyperbilirubinemia was found that was amenable to endoscopic management. Please refer to house staff note for more details. Total of 65 minutes were spent in reviewing the chart and clinical data, examining the patient and documenting the findings an the recommendations. Lorenzo Romero MD Exchange Engineer Clinical Gastroenterology, Hepatology and Nutrition [facility] History and physical note* Junior Dior MD - 08/12/2023 6:55 AM EDT Please see consult note on 08/[address] Kumar. Junior Dior MD PGY1 Internal medicine Resident [facility]06-[facility]-2024 History and physical note* Junior Dior MD - 08/12/2023 6:55 AM EDT Please see consult note on 08/[address] Kumar. Junior Dior MD PGY1 Internal medicine Resident [facility] Consult note* Marcus Jaime MD - 08/12/2023 4:51 AM EDTAssociated Order(s): IP CONSULT TO GASTROENTEROLOGY [facility] PB Consult For urgent/stat calls or consults 5pm to 7am or all day on the weekend, please page the on-call GI fellow on QGenda. [facility]--> Internal Medicine--> Gastroenterology, Hepatology, & Nutrition--> 1st Call Fel Lynn OR STAT/NEW GI Cons Wknd For follow up questions regarding this patient 7am to 5pm, contact the PB consults fellow or TRISH onQGenda. [facility]--> Internal Medicine--> Gastroenterology, Hepatology, & Nutrition-->PB Consult Service OR PB Consult Service TRISH Day GASTROENTEROLOGY INPATIENT CONSULT Referring Provider: Tawana Deluca MD Admit Date: 08/12/2023 Reason for Consultation: c/f biliary obstruction HISTORY OF PRESENT ILLNESS: Mary Jenkins is a 82 y.o. 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 We are consulted due to concern for biliary obstruction. Ms Jenkins began feeling unwell around 1 week ago. She notes a pain in her epigastrium and RUQ painthat radiates to her back and has had some associated nausea and chills. On Monday night she began noticing increasingly dark urine. Family noticed that she appeared jaundiced and ultimately presented to her PCP yesterday and she had outpatient labs done showing an elevated bilirubin so she was advised to present to the hospital for further evaluation. Here, she has been afebrile, VSS, on room air. Labs show normal WBC count, Hgb 11.3, plt 286. Hypokalemia to 3, Cr 0.78. LFT show Tbili 8.6 (Dbili 5.4), ALP 455, AST 67, ALT 49 (LFT when last checked showed 06/30/23 showed ALP 245 but otherwise normal). Normal lipase. RUQ ultrasound shows a heterogeneous hyperechoic mass in the L hepatic lobe but normal CBD caliber of 6 mm and no intrahepatic biliary dilation. PAST MEDICAL HISTORY: PAST MEDICAL HISTORY Past Medical History: Diagnosis Date Arrhythmia atrial fibrillation Essential hypertension, benign History of cancer Hyperlipidemia Rheumatic fever PAST SURGICAL HISTORY Past Surgical History: Procedure Laterality Date OCCLUSION/EMBOLIZATION ENDOVASCULAR TUMORS/ORGAN ISCHEMIA/INFARCTION N/A 05/31/2021 Laterality: N/A; Surgeon: Humberto Rush MD; Location: [facility] INTERVENTIONAL RADIOLOGY (VIR) OCCLUSION/EMBOLIZATION ENDOVASCULAR TUMORS/ORGAN ISCHEMIA/INFARCTION N/A 03/22/2021 Laterality: N/A; Surgeon: Humberto Rush MD; Location: [facility] INTERVENTIONAL RADIOLOGY (VIR) COLECTOMY PARTIAL LAPAROSCOPIC Right 03/08/2021 Laterality: Right; Surgeon: Rodrigo López MD; Location: [facility] MAIN OR PARATHYROIDECTOMY 2014 removed 2 nodules APPENDECTOMY BREAST LUMPECTOMY Left Benign per pt report; approximately age 41 CHOLECYSTECTOMY HYSTERECTOMY KNEE SURGERY ORIF WRIST Left OTHER SURGICAL spine surgery for T8 fracture. CURRENT MEDICATIONS amLODIPine 5 mg Oral QAM apixaban 5 mg Oral Q12H cholecalciferol 2,000 Units Oral Daily Flecainide 100 mg Oral Q12H lisinopril 40 mg Oral QAM magnesium oxide 400 mg Oral Daily Metoprolol succinate 100 mg Oral QAM Polyethylene glycol 17 g Oral Daily predniSONE 50 mg Oral Q6HNS Senna 8.6 mg Oral Daily Sertraline 150 mg Oral Daily ALLERGIES Allergies Allergen Reactions Contrast Dye [Ivp Dye, Iodine Containing] Anaphylaxis Takes prednisone & benadryl prior to CT scans as pre-meds Penicillin G Other reaction(s): Shortness of breath, edema SOCIAL HISTORY She reports that she has never smoked. She has never used smokeless tobacco. She reports that she does not currently use alcohol. She reports that she does not use drugs. FAMILY HISTORY Family History Problem Relation Age of Onset Coronary Artery Disease Father Cancer- Other Paternal Uncle lip cancer Uterine Cancer Paternal Grandmother Thyroid Cancer Daughter 44 total thyroidectomy- follicular & papillary Breast Cancer Cousin REVIEW OF SYSTEMS: 10-point ROS negative unless otherwise noted in HPI. Review of Systems PHYSICAL EXAM: Temp: [97.6 F (36.4 C)-98.3 F (36.8 C)] 98 F (36.7 C) Pulse (Heart Rate): [59-74] 74 Resp Rate: [15-18] 16 BP: (143-173)/(68-90) 173/70 O2 Sat (%): [95 %-98 %] 95 % Weight: [70.3 kg (155 lb)] 70.3 kg (155 lb) Wt Readings from Last 3 Encounters: 08/12/23 70.3 kg (155 lb) 06/30/23 71.8 kg (158 lb 6.4 oz) 03/31/23 72.1 kg (159 lb) General: awake, alert, no apparent distress HEENT: + scleral icterus, MMM Cardiovascular: Regular rate and rhythm, normal S1/S2, no murmurs/rubs/gallops Pulmonary: Clear to auscultation bilaterally Abdomen: Soft, tender to palpation in epigastrium and RUQ, non-distended Extremities: Warm and well perfused, no edema Skin: Warm, dry, no rashes Neurological: Alert and oriented x3, no focal deficits Psychiatric: Normal affect, normal mood, pleasant demeanor LABS: CBC: Lab Results Component Value Date WBC 8.78 08/11/2023 HGB 11.3 (L) 08/11/2023 PLATELET 286 08/11/2023 MCV 84.1 08/11/2023 Chemistry: Lab Results Component Value Date SODIUM 135 08/11/2023 POTASSIUM 3.0 (L) 08/11/2023 CHLORIDE 100 08/11/2023 CO2 23 08/11/2023 BUN 12 08/11/2023 CREATSERUM 0.78 08/11/2023 GLUCOSE 132 (H) 08/11/2023 MAGNESIUM 1.9 08/11/2023 Liver Function Tests: Lab Results Component Value Date ALT 49 (H) 08/11/2023 AST 67 (H) 08/11/2023 ALKPHOS 455 (H) 08/11/2023 BILITOTAL 8.6 (H) 08/11/2023 BILIDIRECT 5.4 (H) 08/11/2023 INR 1.0 05/31/2021 IMAGING/STUDIES: All relevant imaging and procedures were reviewed. ASSESSMENT AND PLAN: Mary Jenkins is a 82 y.o. 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 We are consulted due to concern for biliary obstruction. Ms Jenkins presents with around 1 week of pain in her epigastrium and RUQ pain that radiates to herback as well as some associated nausea/chills and found to be jaundiced. Her LFT have risen significantly in a cholestatic pattern from when they were last checked in June 2023 with current Tbili 8.6,ALP 45, AST 67, ALT 49. Differential for LFT elevation includes hepatic metastases, though given how quickly LFTs linden would be more concerned for possibility of stone (though has had prior cholecystectomy). RUQ ultrasound also does not show any significant CBD dilation or intrahepatic biliary dilation. Recommend MRI/MRCP to further evaluate biliary tree for obstruction and further evaluate for possible infiltrative process that could be driving cholestatic LFT elevation. IMPRESSION Elevated LFT, cholestatic pattern Jaundice Metastatic neuroendocrine cancer with mets to liver Abdominal pain ASSESSMENT/RECOMMENDATIONS: Please obtain an MRI with and without contrast with MRCP Monitor daily LFTs Low threshold to start antibiotics should she become febrile GI will follow This consult was discussed with Dr. Romero, the attending physician. If you have any questions or need any further information, please feel free to contact our consult team. Thank you for this consult and allowing us to participate in the care of Mary Jenkins! Marcus Jaime MD Fellow Physician Division of Gastroenterology, Hepatology & Nutrition Department of Internal Medicine [facility] Pager [phone] or Epic Chat with questions For urgent/stat calls or consults 5pm to 7am or all day on the weekend, please page the on-call GI fellow on QGenda. [facility]--> Internal Medicine--> Gastroenterology, Hepatology, & Nutrition--> 1st Call Fel Lynn OR STAT/NEW GI Cons Wk For follow up questions regarding this patient 7am to 5pm, contact the PB consults fellow or TRISH onQGenda. [facility]--> Internal Medicine--> Gastroenterology, Hepatology, & Nutrition-->PB Consult Service OR PB Consult Service TRISH Associated attestation - Lorenzo Romero MD - 08/13/2023 12:05 AM EDT Patient was seen and examined with the house staff. I have reviewed the chart and all the relevant data including prior procedures, medications, PMH, PSH, Social history and family history. I have reviewed the house staff's note and I agree with the history, examination and medical decision making in the note with the following addendum: . 82 y.o. 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 Labs showed mixed hyperbilirubinemia with bili 8.6 and ALP 444. She underwent MRI/MRCP that showed no evidence of choledocholithiasis or biliary dilation. GI is consulted to evaluate for jaundice and rule out biliary obstruction. Jaundice secondary to mixed hyperbilirubinemia secondary to metastatic liver disease. No evidence of CBD obstruction, dilation or stones noted. Will recommend supportive care for now. No reversible etiology for hyperbilirubinemia was found that was amenable to endoscopic management. Please refer to house staff note for more details. Total of 65 minutes were spent in reviewing the chart and clinical data, examining the patient and documenting the findings an the recommendations. Lorenzo Romero MD Exchange Engineer Clinical Gastroenterology, Hepatology and Nutrition [facility] Work Phone: 1(741) 366-956206-29-2024 Nurse Note* Nursing Notes - Karin Disla RN - 08/12/2023 4:00 AM EDT On admission to CT SCAN CCCT 10, from ED a dual RN initial assessment of skin condition was performed by Karin Disla RN and Alejandrina RN. Skin Assessment: Skin not within defined limits. Jaundiced Liang Score: 21 LDA Added:No [facility]06-28-2024 Physician Emergency department Note* Marcellus Bishop MD, PhD - 08/11/2023 9:36 PM EDT ED ATTENDING NOTE Chief Complaint: Jaundice HPI: Mary Jenkins is a 82 y.o. female with RUQ pain in setting of neuroendocrine CA with liver metastases. Son noticed patient was yellow, presented to the ED for evaluation after labs in OSH showed elevated bilirubins. Denies fccns nvd sob cp headache neck pain back pain. Does not want treatment for pain at this time. ROS: A complete detailed ROS was obtained and is negative other than those discussed in the above HPI, in the nursing notes or the resident's note. Past Medical History: Past Medical History: Diagnosis Date Arrhythmia atrial fibrillation Essential hypertension, benign History of cancer Hyperlipidemia Rheumatic fever Physical Exam: Vital Signs: BP 164/68 Pulse 59 Temp 98.3 F (36.8 C) (Oral) Resp 18 SpO2 98% Smoking Status Never Constitutional: Appearance: Normal appearance. HENT: Head: Normocephalic and atraumatic. Eyes: Extraocular Movements: Extraocular movements intact. Conjunctiva/sclera: Conjunctivae icteric. Pupils: Pupils are equal, round, and reactive to light. Cardiovascular: Rate and Rhythm: Normal rate and regular rhythm. Pulses: Normal pulses. Heart sounds: Normal heart sounds. Pulmonary: Effort: Pulmonary effort is normal. Breath sounds: Normal breath sounds. Abdominal: General: Abdomen is flat. Bowel sounds are normal. Palpation: Abdomen is soft. Non-tender. Musculoskeletal: General: Normal range of motion. Cervical back: Normal range of motion and neck supple. Skin: General: Skin is warm and dry. Capillary Refill: Capillary refill takes less than 2 seconds. Neurological: General: No focal deficit present. Mental Status: Alert and oriented to person, place, and time. Psychiatric: Mood and Affect: Mood normal. Assessment/Plan/Disposition: Patient is at risk for progression of condition, will prepare CT, dispo as admit Diagnoses: Neuroendocrine CA Metastases On 08/11/2023 I saw and examined the patient. I discussed the history and examination with the resident physician and agree with the plan of care. Medical Decision Making Amount and/or Complexity of Data Reviewed Labs: ordered. Radiology: ordered. Risk OTC drugs. Prescription drug management. Marcellus Bishop MD, PhD 08/11/23 [id number] [facility] [place] Work Phone: 1(171) 230-676306-28-2024 Emergency department Note* Marcellus Bishop MD, PhD - 08/11/2023 9:36 PM EDT ED ATTENDING NOTE Chief Complaint: Jaundice HPI: Mary Jenkins is a 82 y.o. female with RUQ pain in setting of neuroendocrine CA with liver metastases. Son noticed patient was yellow, presented to the ED for evaluation after labs in OSH showed elevated bilirubins. Denies fccns nvd sob cp headache neck pain back pain. Does not want treatment for pain at this time. ROS: A complete detailed ROS was obtained and is negative other than those discussed in the above HPI, in the nursing notes or the resident's note. Past Medical History: Past Medical History: Diagnosis Date Arrhythmia atrial fibrillation Essential hypertension, benign History of cancer Hyperlipidemia Rheumatic fever Physical Exam: Vital Signs: BP 164/68 Pulse 59 Temp 98.3 F (36.8 C) (Oral) Resp 18 SpO2 98% Smoking Status Never Constitutional: Appearance: Normal appearance. HENT: Head: Normocephalic and atraumatic. Eyes: Extraocular Movements: Extraocular movements intact. Conjunctiva/sclera: Conjunctivae icteric. Pupils: Pupils are equal, round, and reactive to light. Cardiovascular: Rate and Rhythm: Normal rate and regular rhythm. Pulses: Normal pulses. Heart sounds: Normal heart sounds. Pulmonary: Effort: Pulmonary effort is normal. Breath sounds: Normal breath sounds. Abdominal: General: Abdomen is flat. Bowel sounds are normal. Palpation: Abdomen is soft. Non-tender. Musculoskeletal: General: Normal range of motion. Cervical back: Normal range of motion and neck supple. Skin: General: Skin is warm and dry. Capillary Refill: Capillary refill takes less than 2 seconds. Neurological: General: No focal deficit present. Mental Status: Alert and oriented to person, place, and time. Psychiatric: Mood and Affect: Mood normal. Assessment/Plan/Disposition: Patient is at risk for progression of condition, will prepare CT, dispo as admit Diagnoses: Neuroendocrine CA Metastases On 08/11/2023 I saw and examined the patient. I discussed the history and examination with the resident physician and agree with the plan of care. Medical Decision Making Amount and/or Complexity of Data Reviewed Labs: ordered. Radiology: ordered. Risk OTC drugs. Prescription drug management. Marcellus Bishop MD, PhD 08/11/23 0613 * Josie Muse PA-C - 08/11/2023 9:09 PM EDT EMERGENCY DEPARTMENT ENCOUNTER CHIEF COMPLAINT Jaundice HPI Mary Jenkins is a 82 y.o. female with past medical history significant for neuroendocrine cancer with liver mets, obesity, HLD, HTN, who presents to the Emergency Department today for chief complaint of jaundice. Patient reports she has not been feeling well for the past 1 week. Had some nauseaand dry heaves over the weekend as well as alternating chills and hot sweats. States that has mostly resolved however she has been having persistent right upper quadrant pain radiating to her back. Son noticed she appeared jaundiced today. Also patient noticed dark urine today. Due to this she had outpatient labs done which revealed elevated bilirubin. She was directed to the emergency departmentdue to concern for biliary obstruction. She denies any documented fevers at home. Denies any vomiting, shortness for breath, chest pain, confusion, dysuria, diarrhea, constipation. PAST MEDICAL HISTORY Past Medical History: Diagnosis Date Arrhythmia atrial fibrillation Essential hypertension, benign History of cancer Hyperlipidemia Rheumatic fever SURGICAL HISTORY Past Surgical History: Procedure Laterality Date OCCLUSION/EMBOLIZATION ENDOVASCULAR TUMORS/ORGAN ISCHEMIA/INFARCTION N/A 05/31/2021 Laterality: N/A; Surgeon: Humberto Rush MD; Location: [facility] INTERVENTIONAL RADIOLOGY (VIR) OCCLUSION/EMBOLIZATION ENDOVASCULAR TUMORS/ORGAN ISCHEMIA/INFARCTION N/A 03/22/2021 Laterality: N/A; Surgeon: Humberto Rush MD; Location: [facility] INTERVENTIONAL RADIOLOGY (VIR) COLECTOMY PARTIAL LAPAROSCOPIC Right 03/08/2021 Laterality: Right; Surgeon: Rodrigo López MD; Location: [facility] MAIN OR PARATHYROIDECTOMY 2014 removed 2 nodules APPENDECTOMY BREAST LUMPECTOMY Left Benign per pt report; approximately age 41 CHOLECYSTECTOMY HYSTERECTOMY KNEE SURGERY ORIF WRIST Left OTHER SURGICAL spine surgery for T8 fracture. CURRENT MEDICATIONS Current Outpatient Medications Medication Sig amLODIPine 5 MG tablet Take 1 tablet by mouth daily every morning. apixaban 5 MG tablet Take 1 tablet by mouth every 12 hours. atorvastatin 10 MG tablet Take 1 tablet by mouth daily every morning. cholecalciferol 50 MCG (1999 UT) capsule Take 1 capsule by mouth daily. flecainide 100 MG tablet Take one tablet twice a day for heartbeat. lisinopril 40 MG tablet Take 1 tablet by mouth daily every morning. Magnesium 250 MG tablet Take 1 tablet by mouth daily every morning. metoprolol succinate 100 MG tablet XL 1 tablet daily every morning. octreotide acetate (SandoSTATIN LAR Depot) 20 MG Kit injection Inject 20 mg intramuscularly Once. Every 30 days predniSONE & diphenhydrAMINE 3 x 50 MG & 1 x 50 MG Kit Take 1 kit by mouth As directed. Take 50 mg prednisone 13 & 7 hrs prior to scans. Take 50 mg benadryl & 50 mg prednisone 1 hour prior. Ok to split kit if needed risedronate 35 MG tablet Take 1 tablet by mouth every 7 days. Sertraline HCl 150 MG capsule 150 mg daily every morning. ALLERGIES Allergies Allergen Reactions Contrast Dye [Ivp Dye, Iodine Containing] Anaphylaxis Takes prednisone & benadryl prior to CT scans as pre-meds Penicillin G Other reaction(s): Shortness of breath, edema FAMILY HISTORY Family History Problem Relation Age of Onset Coronary Artery Disease Father Cancer- Other Paternal Uncle lip cancer Uterine Cancer Paternal Grandmother Thyroid Cancer Daughter 44 total thyroidectomy- follicular & papillary Breast Cancer Cousin SOCIAL HISTORY Social History Socioeconomic History Marital status: Tobacco Use Smoking status: Never Smokeless tobacco: Never Substance and Sexual Activity Alcohol use: Not Currently Drug use: Never REVIEW OF SYSTEMS CONSTITUTIONAL: No Fever, + chills (resolved now), no unexpected weight loss/gain, no fatigue. HENT: No vision changes, no nasal drainage, no throat pain or swelling, no lymphadenopathy. CARDIO: No chest pain or pressure, no palpitations, no extremity edema. RESPIRATORY: No cough, no wheezing, no shortness of breath. GI: + RUQ abdominal pain, + nausea, no vomiting, no bloody or black tarry stools, no constipation, no diarrhea, no flank pain. : No dysuria, no change in urine output, no hematuria, no frequency. MSK: No arthralgias, no myalgias, no back pain, no weakness. SKIN: No wounds, no rashes, no pallor or jaundice. NEUROLOGIC: No headaches, no vision changes, no dizziness, no weaknesses. HEMATOLOGIC: No bruising, no bleeding. ALLERGY/IMMUNE: No allergic or immune reactions. PHYSICAL EXAM VITALS: BP 143/90 (BP Location: Right arm) Pulse 74 Temp 97.6 F (36.4 C) (Temporal) Resp 15 SpO2 97% Smoking Status Never GENERAL: Ambulatory, conversational, no apparent distress. EYES: PERRL, EOMI. + scleral icterus. HEENT: Atraumatic, Normocephalic. Neck supple. Oral mucosa pink and moist without lesions. Oropharynx clear without exudates. RESP: Clear to auscultation bilaterally posteriorly, no rales rhonchi or wheezes. Normal respiratory effort. CARDIO: Regular rate and rhythm, no murmurs, clicks, or gallops. ABD: Abdomen soft, non-distended, TTP RUQ without rebound, guarding, nor rigidity. Normoactive bowel sounds x all 4 quadrants. No CVA tenderness. SKIN: Skin texture, turgor normal. No rashes or lesions. + Jaundice EXTREMITIES: No cyanosis, and no calf tenderness. No lower extremity edema. NEURO: Alert and oriented x 3. No CN deficits, No focal weakness. MUSCULOSKELETAL: 5/5 strength in b/l upper and lower extremities. Distal pulses 2+ and equal x all 4 extremities. I reviewed the nursing notes and vitals. ASSESSMENT: Mary Jenkins is a 82 y.o. female with past medical history significant for neuroendocrine cancer with liver mets, obesity, HLD, HTN, who presents to the Emergency Department today for chief complaint of jaundice. Differential diagnosis includes, but is not limited to: biliary obstruction, worsening liver mets, hemolysis, cirrhosis PLAN: Imaging: CT AP Labs: CBC, Chem7, LFT, Lipase Other: None Therapeutics: IVFs, pain control Consults: GI Results for orders placed or performed during the hospital encounter of 08/11/23 CHEM 6 (LYTES, BUN CREA) Result Value Ref Range BUN 12 7 - 25 mg/dL Sodium 135 135 - 145 mmol/L Potassium 3.0 (L) 3.5 - 5.0 mmol/L Chloride 100 98 - 108 mmol/L CO2 23 21 - 31 mmol/L Creatinine 0.78 0.50 - 1.20 mg/dL Bun/Crea Ratio 15 Anion Gap 15 7 - 17 mmol/L eGFR, CKD-EPI, Female 76 >=60 mL/min/1.73m2 GLUCOSE Result Value Ref Range Glucose 132 (H) 70 - 99 mg/dL HEPATIC FUNCTION PANEL Result Value Ref Range Albumin 3.8 3.5 - 5.0 g/dL Bilirubin Direct 5.4 (H) <0.3 mg/dL Bilirubin Total 8.6 (H) <1.5 mg/dL ALP 455 (H) 32 - 126 U/L ALT 49 (H) 9 - 48 U/L AST 67 (H) 10 - 39 U/L Total Protein 7.3 6.4 - 8.3 g/dL LIPASE Result Value Ref Range Lipase 78 11 - 82 U/L CBC AND ELECTRONIC DIFF Result Value Ref Range WBC Count 8.78 3.99 - 11.19 K/uL RBC Count 3.91 3.91 - 5.04 M/uL Hemoglobin 11.3 (L) 11.4 - 15.2 g/dL Hematocrit 32.9 (L) 34.9 - 44.3 % Mean Cell Volume 84.1 79.6 - 97.7 fL Mean Cell Hgb 28.9 25.9 - 33.9 pg Mean Cell Hgb Conc 34.3 31.4 - 35.9 g/dL RBC Distribution 16.5 (H) 10.8 - 14.9 % Platelet Count 286 150 - 393 K/uL Mean Platelet Volume 11.2 8.5 - 12.2 fL Segs + Bands Auto Immature Grans % Lymphocyte % Auto Monocyte % Auto Eosinophil % Auto Basophil % Auto Segs + Bands,Absolute Auto Immature Grans Absolute Abs Lymph Auto Abs Moody Auto Abs Eos Auto Abs Baso Auto MANUAL DIFF Result Value Ref Range DIFF STATUS Manual Differential Bands Relative 0.0 % Segs Relative 77.6 % Lymph Relative 9.5 % Moody Relative 7.8 % Eos Relative 1.7 % Baso Relative 1.7 % Myelocyte Relative 1.7 % Segs & Bands, Absolute 6.81 1.64 - 7.28 K/uL Abs Lymph Manual 0.83 (L) 1.16 - 3.51 K/uL Abs Moody Manual 0.68 0.22 - 0.87 K/uL Abs Eos Manual 0.15 0.00 - 0.42 K\uL Abs Baso Manual 0.15 0.00 - 0.15 K/uL Abs Myelo Manual 0.15 (H) <=0.08 K/uL RBC Morphology RBC INDICES CONFIRMED WITH MANUAL SLIDE REVIEW Platelet Estimate Automated platelet count confirmed by manual slide review No orders to display Medical Decision Making Problems Addressed: Jaundice: acute illness or injury RUQ pain: acute illness or injury Amount and/or Complexity of Data Reviewed Labs: ordered. Decision-making details documented in ED Course. Radiology: ordered. Decision-making details documented in ED Course. Risk OTC drugs. Prescription drug management. ED COURSE & MEDICAL DECISION MAKING: Upon arrival to the ED patient was in NAD. Initial vitals as follows: BP 164/68, temp 98.3, RR 18 NL, HR 59, O2 sat 98% on RA. Patient has a history of neuroendocrine cancer with liver Mets. She reports right upper quadrant pain for the past 1 week. She did have some alternating chills and hot sweats as well as nausea over the weekend that is subsided. Noticed dark urine and jaundice today. She had outpatient labs done that revealed elevated bili. She was directed here due to concern for biliary obstruction. On exam, the abdomen is soft, nondistended, tenderness to palpation in the right upper quadrant. She is jaundiced with scleral icterus. She does have history of contrast dye allergy. She does require a 13 hour prep which we will initiate here. Will obtain labs and CT abdomen pelvis. She denies eating anything for pain at this time. Will start maintenance IV fluids. She will require GI consult following imaging. T. Bili 8.6, D. Bili 5.4, ALT 49, AST 67, ALP 455. K 3, will check mag. Will replace. No evidence of TISHA. Normal WBC, H&H 11.3/32.9 slightly down from bl hgb 12. Normal platelet count. Patient to be admitted to the hospital due to concern for biliary obstruction. Plan for CT AP following allergy prep, and GI consult. Pt in agreement with plan. FINAL IMPRESSION: RUQ pain Jaundice DISPOSITION: Admit BHARATH Yu PA-C This was a shared visit with Dr. Bishop The plan of care and all medication prescriptions for this patient were discussed with the attending physician. This note dictated using [employer] medical voice recognition software. Attempts at proofreading were made, but errors may occasionally still occur. Josie Muse PA-C [id number] * Jocelyn Velazquez RN - 08/11/2023 8:56 PM EDT Bed: E002 Expected date: Expected time: Means of arrival: Comments: triage * Melissa Nieto RN - 08/11/2023 6:07 PM EDT Patient went to family PCP for her Dark brown urine Patient is jaundiced.Also complains of recent chills. Complains of upper right quadrant pain Wheremy liver is that goes to my back. Has been taking sandostatin injections History of metastatic malignant neuroendocrine tumor [facility] Emergency [facility]* Josie Muse PA-C - 08/11/2023 9:09 PM EDT EMERGENCY DEPARTMENT ENCOUNTER CHIEF COMPLAINT Jaundice HPI Mary Jenkins is a 82 y.o. female with past medical history significant for neuroendocrine cancer with liver mets, obesity, HLD, HTN, who presents to the Emergency Department today for chief complaint of jaundice. Patient reports she has not been feeling well for the past 1 week. Had some nauseaand dry heaves over the weekend as well as alternating chills and hot sweats. States that has mostly resolved however she has been having persistent right upper quadrant pain radiating to her back. Son noticed she appeared jaundiced today. Also patient noticed dark urine today. Due to this she had outpatient labs done which revealed elevated bilirubin. She was directed to the emergency departmentdue to concern for biliary obstruction. She denies any documented fevers at home. Denies any vomiting, shortness for breath, chest pain, confusion, dysuria, diarrhea, constipation. PAST MEDICAL HISTORY Past Medical History: Diagnosis Date Arrhythmia atrial fibrillation Essential hypertension, benign History of cancer Hyperlipidemia Rheumatic fever SURGICAL HISTORY Past Surgical History: Procedure Laterality Date OCCLUSION/EMBOLIZATION ENDOVASCULAR TUMORS/ORGAN ISCHEMIA/INFARCTION N/A 05/31/2021 Laterality: N/A; Surgeon: Humberto Rush MD; Location: [facility] INTERVENTIONAL RADIOLOGY (VIR) OCCLUSION/EMBOLIZATION ENDOVASCULAR TUMORS/ORGAN ISCHEMIA/INFARCTION N/A 03/22/2021 Laterality: N/A; Surgeon: Humberto Rush MD; Location: [facility] INTERVENTIONAL RADIOLOGY (VIR) COLECTOMY PARTIAL LAPAROSCOPIC Right 03/08/2021 Laterality: Right; Surgeon: Rodrigo López MD; Location: [facility] MAIN OR PARATHYROIDECTOMY 2014 removed 2 nodules APPENDECTOMY BREAST LUMPECTOMY Left Benign per pt report; approximately age 41 CHOLECYSTECTOMY HYSTERECTOMY KNEE SURGERY ORIF WRIST Left OTHER SURGICAL spine surgery for T8 fracture. CURRENT MEDICATIONS Current Outpatient Medications Medication Sig amLODIPine 5 MG tablet Take 1 tablet by mouth daily every morning. apixaban 5 MG tablet Take 1 tablet by mouth every 12 hours. atorvastatin 10 MG tablet Take 1 tablet by mouth daily every morning. cholecalciferol 50 MCG (2000 UT) capsule Take 1 capsule by mouth daily. flecainide 100 MG tablet Take one tablet twice a day for heartbeat. lisinopril 40 MG tablet Take 1 tablet by mouth daily every morning. Magnesium 250 MG tablet Take 1 tablet by mouth daily every morning. metoprolol succinate 100 MG tablet XL 1 tablet daily every morning. octreotide acetate (SandoSTATIN LAR Depot) 20 MG Kit injection Inject 20 mg intramuscularly Once. Every 30 days predniSONE & diphenhydrAMINE 3 x 50 MG & 1 x 50 MG Kit Take 1 kit by mouth As directed. Take 50 mg prednisone 13 & 7 hrs prior to scans. Take 50 mg benadryl & 50 mg prednisone 1 hour prior. Ok to split kit if needed risedronate 35 MG tablet Take 1 tablet by mouth every 7 days. Sertraline HCl 150 MG capsule 150 mg daily every morning. ALLERGIES Allergies Allergen Reactions Contrast Dye [Ivp Dye, Iodine Containing] Anaphylaxis Takes prednisone & benadryl prior to CT scans as pre-meds Penicillin G Other reaction(s): Shortness of breath, edema FAMILY HISTORY Family History Problem Relation Age of Onset Coronary Artery Disease Father Cancer- Other Paternal Uncle lip cancer Uterine Cancer Paternal Grandmother Thyroid Cancer Daughter 44 total thyroidectomy- follicular & papillary Breast Cancer Cousin SOCIAL HISTORY Social History Socioeconomic History Marital status: Tobacco Use Smoking status: Never Smokeless tobacco: Never Substance and Sexual Activity Alcohol use: Not Currently Drug use: Never REVIEW OF SYSTEMS CONSTITUTIONAL: No Fever, + chills (resolved now), no unexpected weight loss/gain, no fatigue. HENT: No vision changes, no nasal drainage, no throat pain or swelling, no lymphadenopathy. CARDIO: No chest pain or pressure, no palpitations, no extremity edema. RESPIRATORY: No cough, no wheezing, no shortness of breath. GI: + RUQ abdominal pain, + nausea, no vomiting, no bloody or black tarry stools, no constipation, no diarrhea, no flank pain. : No dysuria, no change in urine output, no hematuria, no frequency. MSK: No arthralgias, no myalgias, no back pain, no weakness. SKIN: No wounds, no rashes, no pallor or jaundice. NEUROLOGIC: No headaches, no vision changes, no dizziness, no weaknesses. HEMATOLOGIC: No bruising, no bleeding. ALLERGY/IMMUNE: No allergic or immune reactions. PHYSICAL EXAM VITALS: BP 143/90 (BP Location: Right arm) Pulse 74 Temp 97.6 F (36.4 C) (Temporal) Resp 15 SpO2 97% Smoking Status Never GENERAL: Ambulatory, conversational, no apparent distress. EYES: PERRL, EOMI. + scleral icterus. HEENT: Atraumatic, Normocephalic. Neck supple. Oral mucosa pink and moist without lesions. Oropharynx clear without exudates. RESP: Clear to auscultation bilaterally posteriorly, no rales rhonchi or wheezes. Normal respiratory effort. CARDIO: Regular rate and rhythm, no murmurs, clicks, or gallops. ABD: Abdomen soft, non-distended, TTP RUQ without rebound, guarding, nor rigidity. Normoactive bowel sounds x all 4 quadrants. No CVA tenderness. SKIN: Skin texture, turgor normal. No rashes or lesions. + Jaundice EXTREMITIES: No cyanosis, and no calf tenderness. No lower extremity edema. NEURO: Alert and oriented x 3. No CN deficits, No focal weakness. MUSCULOSKELETAL: 5/5 strength in b/l upper and lower extremities. Distal pulses 2+ and equal x all 4 extremities. I reviewed the nursing notes and vitals. ASSESSMENT: Mary Jenkins is a 82 y.o. female with past medical history significant for neuroendocrine cancer with liver mets, obesity, HLD, HTN, who presents to the Emergency Department today for chief complaint of jaundice. Differential diagnosis includes, but is not limited to: biliary obstruction, worsening liver mets, hemolysis, cirrhosis PLAN: Imaging: CT AP Labs: CBC, Chem7, LFT, Lipase Other: None Therapeutics: IVFs, pain control Consults: GI Results for orders placed or performed during the hospital encounter of 08/11/23 CHEM 6 (LYTES, BUN CREA) Result Value Ref Range BUN 12 7 - 25 mg/dL Sodium 135 135 - 145 mmol/L Potassium 3.0 (L) 3.5 - 5.0 mmol/L Chloride 100 98 - 108 mmol/L CO2 23 21 - 31 mmol/L Creatinine 0.78 0.50 - 1.20 mg/dL Bun/Crea Ratio 15 Anion Gap 15 7 - 17 mmol/L eGFR, CKD-EPI, Female 76 >=60 mL/min/1.73m2 GLUCOSE Result Value Ref Range Glucose 132 (H) 70 - 99 mg/dL HEPATIC FUNCTION PANEL Result Value Ref Range Albumin 3.8 3.5 - 5.0 g/dL Bilirubin Direct 5.4 (H) <0.3 mg/dL Bilirubin Total 8.6 (H) <1.5 mg/dL ALP 455 (H) 32 - 126 U/L ALT 49 (H) 9 - 48 U/L AST 67 (H) 10 - 39 U/L Total Protein 7.3 6.4 - 8.3 g/dL LIPASE Result Value Ref Range Lipase 78 11 - 82 U/L CBC AND ELECTRONIC DIFF Result Value Ref Range WBC Count 8.78 3.99 - 11.19 K/uL RBC Count 3.91 3.91 - 5.04 M/uL Hemoglobin 11.3 (L) 11.4 - 15.2 g/dL Hematocrit 32.9 (L) 34.9 - 44.3 % Mean Cell Volume 84.1 79.6 - 97.7 fL Mean Cell Hgb 28.9 25.9 - 33.9 pg Mean Cell Hgb Conc 34.3 31.4 - 35.9 g/dL RBC Distribution 16.5 (H) 10.8 - 14.9 % Platelet Count 286 150 - 393 K/uL Mean Platelet Volume 11.2 8.5 - 12.2 fL Segs + Bands Auto Immature Grans % Lymphocyte % Auto Monocyte % Auto Eosinophil % Auto Basophil % Auto Segs + Bands,Absolute Auto Immature Grans Absolute Abs Lymph Auto Abs Moody Auto Abs Eos Auto Abs Baso Auto MANUAL DIFF Result Value Ref Range DIFF STATUS Manual Differential Bands Relative 0.0 % Segs Relative 77.6 % Lymph Relative 9.5 % Moody Relative 7.8 % Eos Relative 1.7 % Baso Relative 1.7 % Myelocyte Relative 1.7 % Segs & Bands, Absolute 6.81 1.64 - 7.28 K/uL Abs Lymph Manual 0.83 (L) 1.16 - 3.51 K/uL Abs Moody Manual 0.68 0.22 - 0.87 K/uL Abs Eos Manual 0.15 0.00 - 0.42 K\uL Abs Baso Manual 0.15 0.00 - 0.15 K/uL Abs Myelo Manual 0.15 (H) <=0.08 K/uL RBC Morphology RBC INDICES CONFIRMED WITH MANUAL SLIDE REVIEW Platelet Estimate Automated platelet count confirmed by manual slide review No orders to display Medical Decision Making Problems Addressed: Jaundice: acute illness or injury RUQ pain: acute illness or injury Amount and/or Complexity of Data Reviewed Labs: ordered. Decision-making details documented in ED Course. Radiology: ordered. Decision-making details documented in ED Course. Risk OTC drugs. Prescription drug management. ED COURSE & MEDICAL DECISION MAKING: Upon arrival to the ED patient was in NAD. Initial vitals as follows: BP 164/68, temp 98.3, RR 18 NL, HR 59, O2 sat 98% on RA. Patient has a history of neuroendocrine cancer with liver Mets. She reports right upper quadrant pain for the past 1 week. She did have some alternating chills and hot sweats as well as nausea over the weekend that is subsided. Noticed dark urine and jaundice today. She had outpatient labs done that revealed elevated bili. She was directed here due to concern for biliary obstruction. On exam, the abdomen is soft, nondistended, tenderness to palpation in the right upper quadrant. She is jaundiced with scleral icterus. She does have history of contrast dye allergy. She does require a 13 hour prep which we will initiate here. Will obtain labs and CT abdomen pelvis. She denies eating anything for pain at this time. Will start maintenance IV fluids. She will require GI consult following imaging. T. Bili 8.6, D. Bili 5.4, ALT 49, AST 67, ALP 455. K 3, will check mag. Will replace. No evidence of TISHA. Normal WBC, H&H 11.3/32.9 slightly down from bl hgb 12. Normal platelet count. Patient to be admitted to the hospital due to concern for biliary obstruction. Plan for CT AP following allergy prep, and GI consult. Pt in agreement with plan. FINAL IMPRESSION: RUQ pain Jaundice DISPOSITION: Admit BHARATH Yu PA-C This was a shared visit with Dr. Bishop The plan of care and all medication prescriptions for this patient were discussed with the attending physician. This note dictated using [employer] medical voice recognition software. Attempts at proofreading were made, but errors may occasionally still occur. Josie Muse PA-C 08/11/232153 [facility] Emergency department Note* Jocelyn Velazquez RN - 08/11/2023 8:56 PM EDT Bed: E002 Expected date: Expected time: Means of arrival: Comments: triage [facility] Emergency department Note* Melissa Nieto RN - 08/11/2023 6:07 PM EDT Patient went to family PCP for her Dark brown urine Patient is jaundiced.Also complains of recent chills. Complains of upper right quadrant pain Wheremy liver is that goes to my back. Has been taking sandostatin injections History of metastatic malignant neuroendocrine tumor to liver [facility] History of Present illness Narrative* Jade Simmons, RT(R) - 08/04/2023 1:20 PM EDT Radiology Service Progress Note PATIENT NAME: Mary Jenkins DATE OF SERVICE: August 04, 2023 TIME: 2:52 PM PATIENT IDENTITY VERIFICATION COMPLETED USING TWO (2) IDENTIFIERS: Name and Date of confirmedby patient verbally. FALL SCREENING: Has the patient had 2 falls in the last year or 1 fall with injury or currently using an Ambulatory Assistive Device (Walker, Cane, Wheelchair, Crutches, etc.)? No PATIENT GENDER DATA: Female. status: : No status: NO. PATIENT RELEVANT IMPLANT DATA REVIEWED: Not Applicable PATIENT PRESENTS WITH AN IMPLANTABLE OR ATTACHED HAZARDOUS MATERIAL SPECIALIST: No RADIOLOGY DEPARTMENT: T-SPINE AP/LAT LUMBAR AP/LAT PERIPHERAL IV DATA: Not applicable SIGNED BY: RT Bhavik(Ozzy) August 04, 2023 2:52 PM documented in this encounterSelect [facility]24 NoteHNO ID: [id number] Author: JADE SIMMONS RT(Ozzy) Service: ? Author Type: Technologist Type: Progress Notes Filed: 08/04/2023 14:52 Note Text: Radiology Service Progress Note PATIENT NAME: Mary Jenkins DATE OF SERVICE: August 04, 2023 TIME: 2:52 PM PATIENT IDENTITY VERIFICATION COMPLETED USING TWO (2) IDENTIFIERS: Name and Date of confirmed by patient verbally. FALL SCREENING: Has the patient had 2 falls in the last year or 1 fall with injury or currently using an Ambulatory Assistive Device (Walker, Cane, Wheelchair, Crutches, etc.)? No PATIENT GENDER DATA: Female. status: : No status: NO. PATIENT RELEVANT IMPLANT DATA REVIEWED: Not Applicable PATIENT PRESENTS WITH AN IMPLANTABLE OR ATTACHED HAZARDOUS MATERIAL SPECIALIST: No RADIOLOGY DEPARTMENT: T-SPINE AP/LAT LUMBAR AP/LAT PERIPHERAL IV DATA: Not applicable SIGNED BY: RT Bhavik(Ozzy) August 04, 2023 2:52 PMCMer[facility]06-[facility] Telephone encounter Note* Telephone Encounter - Melissa Haas MA - 07/31/2023 10:50 AM EDT Patient returned my call, she will get XR done this week. [facility]06-17-[facility]24 Miscellaneous Notes* Telephone Encounter - Melissa Haas MA - 07/31/2023 10:50 AM EDT Patient returned my call, she will get XR done this week. * Telephone Encounter - Melissa Haas MA - 07/31/2023 10:39 AM EDT Mary is scheduled for XR and follow up with Dr. Rincon on Monday08/08/23. Our XR machine is in the process of being replaced, so she will need to get her XR elsewhere. Left message advising above and asked that she return my call with any questions. Office number with my extension provided. Melissa Haas MA documented in this encounterSelect [facility]06-17-2024 Telephone encounter Note * Telephone Encounter - Melissa Haas MA - 07/31/2023 10:39 AM EDT Mary is scheduled for XR and follow up with Dr. Rincon on Monday08/08/23. Our XR machine is in the process of being replaced, so she will need to get her XR elsewhere. Left message advising above and asked that she return my call with any questions. Office number with my extension provided. Melissa Haas MA [facility]05-17-[facility]24 History of Present illness Narrative* Doris Maharaj, FINANCIAL SERVICES MANAGER-TRUCK LEASING MANAGER - 06/30/2023 1:00 PM EDT Images from the original note were not included. REFERRING MD: Referral from: Dr. Matt Nunez Scheduled with Dr. David on 11/25 DX: metastatic NEC Ki67%: 5% Pathology: [facility] 09[facility]2020 HISTORY OF PRESENT ILLNESS: Mary Jenkins is a 82 y.o. female who is diagnosed with neuroendocrine tumor. She comes here today for evaluation regarding diagnosis. She was in usual state of health until: 2015: Resection of parathyroid adenomas August 2020: Acute onset of abdominal pain and diarrhea. She was treated for diverticulitis. Diarrheaimproved, but continued with RUQ pain. September 25, 2020: Liver core biopsy: [facility] read: A. Liver mass, CT-guided core biopsy: Metastatic well-differentiated neuroendocrine tumor, G2 Immunohistochemical stain performed at outside hospital TTF 1 negative S100 negative CK7 negative CK20 negative Napsin a negative CD117 negative P 40 negative Pancytokeratin positive NSE positive CD56 positive Synaptophysin positive Chromogranin positive Henry 2 positive CDX2 positive CK8 positive Ki-67: 6% Comment: The immunohistochemical profile suggests a gastrointestinal primary. Clinical correlation is recommended. 10/13/2020: FDG PET: Increased FDG distrubution noted in the region of the proximal ascending colong. Liver does not uptake FDG. 10/2020: Sandostatin q 28 days 12/29/2020: MRI A/P: IMPRESSION: 1. Probable mass involving the distal/terminal ileum which may represent the primary site of the known neuroendocrine tumor. No upstream bowel distention. No mesenteric masses. 2. Multiple lesions within the liver consistent with metastatic disease. Dominant lesion in posterior left lobe. 3. No adenopathy in the abdomen or pelvis. 4. Status post hysterectomy and cholecystectomy. 03/08/2021: laparoscopic right colectomy: A. Right colon and terminal ileum, laparoscopic right hemicolectomy: Well-differentiated neuroendocrine tumor, grade 1,involving the terminal ileum, see synoptic report Surgical margins are negative for tumor Tumor is panmural and involves the serosa Extensive perineural invasion 20 benign lymph nodes (0/20) Immunohistochemical stains for chromogranin and synaptophysin are positive. Manual quantitative immunohistochemistry for Ki-67 is 0%. Zero mitoses were seen in 2 mm2. 03/22/21- left hepatic lobe TAE by Dr. Rush 05/31/2021: Right hepatic lobe TAE 06/16/2021: Venous doppler: +acute DVT of right tibioperoneal trunk, peroneal, soleus veins. 06/19/2021 CT C/A/P multiple lesions of decreased attenuation within the liver worrisome for metastatic disease including a 7 cm lesion within the posterior segment the right lobe of the liver. There is diffuse atherosclerotic calcification of the abdominal aorta, without a demonstrated aneurysm. 08/13/2021 MRI A/P IMPRESSION: 1. Status post right hemicolectomy involving the previously described mass within the distal/terminal ileum, compatible with patient's known history of neuroendocrine tumor. No evidence of recurrence within the resection bed. No discrete mesenteric masses. 2. Status post interval transarterial bland embolization of lesions in segment 2/3 which has decreased in size (now measuring 3.0 x 2.4 cm, previously 4.6 x 4.1 cm.) however demonstrates persistent peripheral arterial phase enhancement, suggestive of viable disease. 3. Status post interval transarterial bland embolization lesion in segment 7. No definite abnormal enhancement is identified. Interval development of likely posttreatment confluent necrotic collections in this region. 4. Additional previously indexed arterially enhancing lesions in segment 4A/5 are not significantly changed. 5. Focus of intrinsic T1 hyperintensity within the proximal common hepatic is suggestive of posttreatment hemobilia. No significant proximal intrahepatic biliary ductal dilation. Mild persistent prominence of the common bile duct could relate to postcholecystectomy ectasia. Chief Complaint Patient presents with Follow-up NEC Results Labs and PET completed today Other Has been doing ok since last RTC. Has question about Gastrin levels Ms. Jenkins presents to clinic today for follow-up. She has not had any hospitalizations or acute illnesses. Had a vertebroplasty done August of 2022. Still getting her kristal injection. Diarrhea comes and goes and takes imodium. Denies any abdominal pain, nausea, or vomiting. Appetite and fatigue arestable. ECOG PS: 1 REVIEW OF SYSTEMS: A review of systems was performed with the patient at today's patient and is negative except for those items mentioned in the interval history and those items mentioned below as well as in the nursing documentation review of systems. 03/31/2023 ONC AMB Nursing Assessment Performance Status Grade 1 Fatigue Grade 0 Nausea Grade 0 Vomiting Grade 0 Anorexia Grade 0 Diarrhea Grade 1 Constipation Grade 0 Peripheral Motor Neuropathy Grade 1 Depression Grade 0 Mucositis (oral, pharyngeal) Grade 0 Tinnitus Grade 1 Dyspnea Grade 1 Pain Grade 1 Fever Grade 0 Localized Edema Grade 1 Rash Maculo-Papular Grade 0 Palmar-Plantar Erythrodysesthesia Syndrome Grade 0 Allergies Allergen Reactions Contrast Dye [Ivp Dye, Iodine Containing] Anaphylaxis Takes prednisone & benadryl prior to CT scans as pre-meds Penicillin G Other reaction(s): Shortness of breath, edema Outpatient Medications Prior to Visit Medication Sig Dispense Refill amLODIPine 5 MG tablet Take 1 tablet by mouth daily every morning. apixaban 5 MG tablet Take 1 tablet by mouth every 12 hours. atorvastatin 10 MG tablet Take 1 tablet by mouth daily every morning. cholecalciferol 50 MCG (1999 UT) capsule Take 1 capsule by mouth daily. flecainide 100 MG tablet Take one tablet twice a day for heartbeat. lisinopril 40 MG tablet Take 1 tablet by mouth daily every morning. Magnesium 250 MG tablet Take 1 tablet by mouth daily every morning. metoprolol succinate 100 MG tablet XL 1 tablet daily every morning. octreotide acetate (SandoSTATIN LAR [place]) 20 MG Kit injection Inject 20 mg intramuscularly Once. Every 30 days predniSONE & diphenhydrAMINE 3 x 50 MG & 1 x 50 MG Kit Take 1 kit by mouth As directed. Take 50 mg prednisone 13 & 7 hrs prior to scans. Take 50 mg benadryl & 50 mg prednisone 1 hour prior. Ok to split kit if needed 1 kit 3 risedronate 35 MG tablet Take 1 tablet by mouth every 7 days. Sertraline HCl 150 MG capsule 150 mg daily every morning. No facility-administered medications prior to visit. Past Medical History: Diagnosis Date Arrhythmia atrial fibrillation Essential hypertension, benign History of cancer Hyperlipidemia Rheumatic fever Past Surgical History: Procedure Laterality Date OCCLUSION/EMBOLIZATION ENDOVASCULAR TUMORS/ORGAN ISCHEMIA/INFARCTION N/A 05/31/2021 Laterality: N/A; Surgeon: Humberto Rush MD; Location: [facility] INTERVENTIONAL RADIOLOGY (VIR) OCCLUSION/EMBOLIZATION ENDOVASCULAR TUMORS/ORGAN ISCHEMIA/INFARCTION N/A 03/22/2021 Laterality: N/A; Surgeon: Humberto Rush MD; Location: [facility] INTERVENTIONAL RADIOLOGY (VIR) COLECTOMY PARTIAL LAPAROSCOPIC Right 03/08/2021 Laterality: Right; Surgeon: Rodrigo López MD; Location: [facility] MAIN OR PARATHYROIDECTOMY 2014 removed 2 nodules APPENDECTOMY BREAST LUMPECTOMY Left Benign per pt report; approximately age 41 CHOLECYSTECTOMY HYSTERECTOMY KNEE SURGERY ORIF WRIST Left OTHER SURGICAL spine surgery for T8 fracture. Social History Tobacco Use Smoking status: Never Smokeless tobacco: Never Substance Use Topics Alcohol use: Not Currently Drug use: Never Family History Problem Relation Age of Onset Coronary Artery Disease Father Cancer- Other Paternal Uncle lip cancer Uterine Cancer Paternal Grandmother Thyroid Cancer Daughter 44 total thyroidectomy- follicular & papillary Breast Cancer Cousin Family Hx: Daughter has thyroid cancer Social Hx: no environmental exposures PHYSICAL EXAMINATION: Patient is in no acute distress. Patient is alert, oriented to person, place and time. Blood pressure 109/58, pulse 72, temperature 97.4 F (36.3 C), temperature source Infrared,resp. rate 18, height 1.549 m (5' 1), weight 71.8 kg (158 lb 6.4 oz), SpO2 95%. HEENT: Head atraumatic, normocephalic. Gross vision intact. Eyes are nonicteric. Neck: supple, symmetrical Lungs: Clear to auscultation bilaterally. No rales or wheezing. Heart: Regular heart rate and rhythm. Abdomen: Soft, nontender, non distended, without palpable masses. Normoactive bowel sounds present. No liver or mass are palpable. Extremities: No edema Skin: Warm and dry with good skin turgor. No rash. Lymphnodes: No lymphadenopathy noted in left or right inguinal area Neurologic: No focal deficits, grossly intact. IMAGING STUDIES: NUC PET Neuroendocrine, 06/30/23: Read pending at time of visit CT CHEST WITHOUT CONTRAST Result Date: 03/27/2023 EXAM: CT CHEST WITHOUT CONTRAST, 03/24/2023 14:50 PM COMPARISON: September 08, 2022 CLINICAL INDICATIONS: neuroendocrine; RELEVANT CLINICAL HISTORY: D3A.8:Neuroendocrine tumor TECHNIQUE: CT images of the chest were obtained without intravenous contrast. FINDINGS: Lungs and Pleura: Subpleural scarring is present within the lung apices. Nodule in the superior segment of the right lower lobe appears stable in size measuring 7 x 7 mm (series 3, image 100), unchanged from prior. No new or enlarging nodules are identified. Tracheobronchial tree: No abnormality. Mediastinum/Zakia: No mediastinal or hilar lymphadenopathy. Axilla and Supraclavicular Regions: A few tiny bilateral axillary lymph nodes are stable and do not meet size criteria for pathologic lymphadenopathy. Cardiovascular: The cardiac chambers are within normal limits. The pericardium is normal. Scattered atherosclerotic changes of the thoracic aorta, arch branch vessels, and coronary arteries. The central pulmonary arteries are unremarkable. Upper Abdomen: Please see same-day MRI abdomen study for description of intra-abdominal contents. Bones and Soft Tissue: Unchanged chronic compression deformity of the T8 vertebral body, status post vertebroplasty. No suspicious lytic or blastic osseous lesions are identified. IMPRESSION: 1. Stable size of a right lower lobe pulmonary nodule which demonstrated mild uptake onprevious PET/CT. No new or enlarging pulmonary nodules. 2. No intrathoracic lymphadenopathy. ABDOMEN/PELVIS WITHOUT AND WITH CONTRAST Result Date: 03/24/2023 EXAM: MRI ABDOMEN/PELVIS WITHOUT AND WITH CONTRAST (MRI ABDOMEN AND PELVIS WITH AND WITHOUT CONTRAST), 03/24/2023 15:30 PM CLINICAL INDICATIONS: neuroendocrine; D3A.8:Neuroendocrine tumor COMPARISON:MRI abdomen and pelvis from September 08, 2022. TECHNIQUE: Multiplanar, multisequence MRI scanning was performed of the abdomen and pelvis before and after the administration of intravenous contrast. CONTR AST: gadoterate Meglumine (DOTAREM) 5 MMOL/10ML injection 3-60 mL; Route of Administration: Intravenous; Dose: 14 mL. FINDINGS: Lung Bases: Please see dedicated chest CT scan of the same date for full description of the intra- thoracic contents. Liver: The liver is normal in morphology with diffuse s teatosis. Stable post-treatment changes of bland embolization. Hepatic metastases are mostly unchanged. Index lesions as follows: * Dominant lesion in segment 2/3 measures 3.1 x 2.4 cm (series 25, image 29), previously 3.0 x 2.5 cm. There is persistent rim enhancement. * The intermediate T2 signal i ntensity/T1 hypointense nonenhancing structures in segment 7 are stable. These may reflect fluid collections or treated lesions. The more superior lesion measures 1.5 x 0.8 cm (series 41, image 23), previously 1.6 x 0.9 cm. The more inferior collection measures 1.7 x 1.0 cm (series 41, image 28), previously 1.8 x 1.1 cm (series 35, image 27), previously 2.8 x 1.9 cm. * Segment 4A/5 lesion measures 1.0 x 0.9 cm (series 25, image 46), previously 1.0 x 1.0 cm. No new lesion. Portal vein is patent.Biliary/Gallbladder: Cholecystectomy. The intrahepatic biliary tree is normal in caliber. Mild prominence of the common bile duct is likely due to postcholecystectomy ectasia. The T1 hyperintense focu s in the proximal common hepatic duct is no longer present. Spleen: Normal. Pancreas: Normal. Adrenals: Normal. Kidneys: Normal. No hydronephrosis. Gastrointestinal: No bowel dilation. Right hemicolectomy. Few colonic and duodenal diverticula. Mesenteric and perirectal nodules are stable (series 3, image 87 and 116); these had uptake on prior PET/CT. Lymph nodes: No abdominal/retroperitoneal adenopathy is identified. The pelvic lymph nodes with uptake on prior PET/CT are not enlarged and stablein appearance. Peritoneum/retroperitoneum: No ascites. Vasculature: The abdominal aorta is normal in course and caliber. Celiac and superior mesenteric arteries are patent. The portal, splenic, and superior mesenteric veins are patent. Bladder: Normal. Pelvic Organs: Hysterectomy. No adnexal mass. Bones: Degenerative changes with levocurvature of the lumbar spine. Enhancing focus in the sacrum adjacent to the left sacroiliac joint (series 83, image 106) in the right anterior acetabulum (series 83, image 133) are stable. These may be degenerative although there was mild uptake on prior PET/CT. IMPRESSION: 1. No change from August 2022. Stable hepatic metastases and perirectal and mesenteric nodules. 2. Stable nonenhancing structures in hepatic segment 7. These may reflect treated metastases or postembolization fluid collections. 3. Unchanged enhancing foci in the left sacrum and acetabulum. Imaging results have been reviewed and discussed with the patient. LABS: Latest Reference Range & Units 03/24/23 14:30 SODIUM 135 - 145 mmol/L 138 POTASSIUM 3.5 - 5.0 mmol/L 4.0 CHLORIDE 98 - 108 mmol/L 104 CARBON DIOXIDE (CO2) 21 - 31 mmol/L 27 BUN 7 - 25 mg/dL 27 (H) Creatinine 0.50 - 1.20 mg/dL 0.89 BUN/CREA RATIO 30 eGFR, CKD-EPI, Female >=60 mL/min/1.73m2 65 CALCIUM 8.6 - 10.5 mg/dL 9.5 ANION GAP 7 - 17 mmol/L 11 OSMOLALITY (CALC) 278 - 305 mOsm/kg 293 BILIRUBIN, TOTAL <1.5 mg/dL 0.6 PROTEIN, TOTAL 6.4 - 8.3 g/dL 7.4 Albumin 3.5 - 5.0 g/dL 4.4 ALKALINE PHOSPHATASE 32 - 126 U/L 100 ALT 9 - 48 U/L 9 AST 10 - 39 U/L 16 LACTATE DEHYDROGENASE 100 - 190 U/L 135 GLUCOSE 70 - 99 mg/dL 88 Chromogranin A <93 ng/mL 73 GASTRIN, DRUG-STIMULATED pg/mL 400 (H) WBC 3.99 - 11.19 K/uL 7.79 RBC 3.91 - 5.04 M/uL 4.40 HEMOGLOBIN 11.4 - 15.2 g/dL 12.7 HEMATOCRIT 34.9 - 44.3 % 39.3 MEAN CELL VOLUME 79.6 - 97.7 fL 89.3 Mean Cell HGB 25.9 - 33.9 pg 28.9 MEAN CELL HGB CONCENTRATION 31.4 - 35.9 g/dL 32.3 RBC DISTRIBUTION 10.8 - 14.9 % 14.8 PLATELET COUNT 150 - 393 K/uL 231 MEAN PLATELET VOLUME 8.5 - 12.2 fL 9.7 RBC, NUCLEATED <=0.2 /100 WBC 0.0 NEUTROPHILS % % 62.4 LYMPHOCYTES % % 25.3 MONOCYTES % % 9.1 EOSINOPHILS % % 2.3 BASOPHILS % % 0.6 IMMATURE GRANS% % 0.3 SEGS + Bands, Absolute 1.64 - 7.28 K/uL 4.86 IMMATURE GRANS ABSOLUTE <=0.08 K/uL <0.04 LYMPHS, ABSOLUTE 1.16 - 3.51 K/uL 1.97 MONOS, ABSOLUTE 0.22 - 0.87 K/uL 0.71 EOS, ABSOLUTE 0.00 - 0.42 K/uL 0.18 Baso Abs# Auto 0.00 - 0.15 K/uL 0.05 DIFF STATUS Electronic Differential (H): Data is abnormally high Lab results have been reviewed and discussed with the patient. IMPRESSION & PLAN: Disease Assessment Dx: WD NET Ki-67 6% of primary likely ileum (FDG PET mesenteric uptake SUV 4.2) 10/2020: Sandostatin started 03/08/2021: laparoscopic right hemicolectomy: A. Right colon and terminal ileum, laparoscopic right hemicolectomy: Well-differentiated neuroendocrine tumor, grade 1,involving the terminal ileum, see synoptic report Surgical margins are negative for tumor Tumor is panmural and involves the serosa Extensive perineural invasion 20 benign lymph nodes (0/20) Immunohistochemical stains for chromogranin and synaptophysin are positive. Manual quantitative immunohistochemistry for Ki-67 is 0%. Zero mitoses were seen in 2 mm2. 03/22/21- left hepatic TAE by Dr. Rush. 05/31/2021: Right hepatic. Tolerated well. 06/16/2021: Venous doppler: +acute DVT of right tibioperoneal trunk, peroneal, soleus veins Assessment: Tumor burden: Liver, terminal ileum, LN: medial right lower lobe pulmonary nodule with focal tracer uptake, suspicious for pulmonary metastasis. Multiple right internal mammary, retroperitoneal, mesenteric and pelvic lymph nodes with significant tracer uptake Symptom Wilmore at presentation: Diarrhea which improved on sandostatin. Pace of disease: Based on scans between August 2020 and Dec 2020: Liver lesions are stable. Plan: PET scan reviewed by Dr. Preciado and shows stability. Gastrin at last visit was elevated, today'sGastrin is pending. -RTC with Dr. David in 6 months with labs and CT chest and MRI abdomen and pelvis 1 week prior - Continue Sandostatin to 30 mg, doing well. - Options at PD include PRRT, Afinitor, cabozantinibl, or repeat TAE Other diagnosis and plan: #DVT - started on 2.5 mg eliquis BID. Experienced RLE edema and pain which has now subsided. #HTN: Uncontrolled. Discussed at every visit. She needs to follow up with PCP/cardiology. - metoprolol, amlodipine, & lisinopril. -BP much better at today's visit The patient had many questions all that were answered to her satisfaction. She will contact the clinic with any questions or concerns. She understands and agrees to the plan. Patient was subsequently seen by and discussed with Dr. David. Plan of care developed jointly. AMAIRANI Proctor * Erwin David MD - 06/30/2023 1:00 PM EDT ATTENDING ADDENDUM: I independently interviewed and examined the patient and formulated the plan along with the inpatient mid-level provider during inpatient rounds on 06/30/23. I agree with the above progress note which reflects the details of my interview, exam findings, and assessment and plan, with additions/corrections below. IMPRESSION & PLAN: Disease Assessment Dx: WD NET Ki-67 6% of primary likely ileum (FDG PET mesenteric uptake SUV 4.2) 10/2020: Sandostatin started. Symptom Wilmore at presentation: Diarrhea which improved on sandostatin. 03/08/2021: laparoscopic right hemicolectomy: A. Right colon and terminal ileum, laparoscopic right hemicolectomy: Well-differentiated neuroendocrine tumor, grade 1,involving the terminal ileum, see synoptic report Surgical margins are negative for tumor Tumor is panmural and involves the serosa Extensive perineural invasion 20 benign lymph nodes (0/20) Immunohistochemical stains for chromogranin and synaptophysin are positive. Manual quantitative immunohistochemistry for Ki-67 is 0%. Zero mitoses were seen in 2 mm2. 03/22/21- left hepatic TAE by Dr. Rush. 05/31/2021: Right hepatic. Tolerated well. 06/16/2021: Venous doppler: +acute DVT of right tibioperoneal trunk, peroneal, soleus veins Assessment: Plan: -Pt scans show stability. Gastrin with slight elevation but I explained that this is not worrisome in the setting of a stable scan. -Patient with back pain. I will recheck gastrin and get a GA PET in 3 months and RTC - Continue Sandostatin to 30 mg, doing well. - Options at PD include PRRT, Afinitor, cabozantinib, or repeat TAE Other diagnosis and plan: #DVT - started on 2.5 mg eliquis BID. Experienced RLE edema and pain which has now subsided. #HTN: Uncontrolled. Discussed at every visit. She needs to follow up with PCP/cardiology. - metoprolol, amlodipine, & lisinopril The patient had many questions all that were answered to her satisfaction. She will contact the clinic with any questions or concerns. She understands and agrees to the plan. Britany Jane [facility], PA-C Physician Pacu Nurse Neuroendocrine/Thyroid Tumor Program [facility] [place] Preet Coburn [facility] [place] documented in this encounterU [place]05-17-2024 Instructions* Patient Instructions* Erwin David MD - 06/30/2023 1:00 PM EDT Follow up appointments 6m with labs and scans 1w prior Thank you for choosing [facility] for your cancer care. FMLA/Disability forms: Please allow up to 2 weeks for the forms to be returned to you Refill requests: Please allow 24-48 hours for a response My chart message response: PLEASE DO NOT SEND IN URGENT/EMERGENT MESSAGES VIA MY CHART. Please allow up to 24-48 hours for a response via my chart. Should you have questions or concerns, please call [phone] documented in this encounterPremier [facility] History of Present illness Narrative* Eric Rincon MD - 06/06/2023 1:30 PM EDT Images from the original note were not included. NEUROSURGERY FOLLOW UP OFFICE NOTE Eric Rincon MD [facility] Date of visit: June 06, 2023 Patient Name: Ms.Edna Mk Jenkins Date of : 1940 Current Age: [age] year old Sex: female MRN/E# [id number] Last Office Visit: 04/25/2023 Chief Complaint: No chief complaint on file. Past Medical/Surgical History: Mary Jenkins is a 82 year old woman who is referred by Dr. Edgar Melton for neurosurgical evaluation. 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 HPI: Ms. Jenkins was seen in the office on 04/25/2023 as a new patient with a CT showing T8 fracture thatshe obtained following a fall last summer. She reported intermittent low back pain with paresthesiathroughout entire lower extremities that worsened with walking and standing straight up. Pain in her low back right > left was most bothersome. She denied weakness or bowel/bladder dysfunction. She also noted that she was having left shoulder pain that radiated into anterior/posterior aspect of left upper extremity, not passing elbow with intermittent paresthesia to left hand. Denied dexterity or imbalance issues. She had used oral steroids and physical therapy for this and she did have im provement. Given her symptoms and lack of imaging, an MRI of her cervical, thoracic and lumbar spine were ordered and she was to follow up in the office once complete, prompting her visit today. The patient presents to the office today stating her pain is about the same. Since her last visit she has had numbness to BLE twice but that has resolved. She described mid to low back pain bilaterally that hurts to do daily activities, but she still does everything on her own. She rates her pain a6/10 today. She is also still having left shoulder pain but had been told it is arthritis. She denies falls, loww of bowel/bladder or new weakness. She is here for evaluation and plan of care. PREVIOUS CONSERVATIVE TREATMENTS: Tylenol Ibuprofen Percocet Physical therapy at [facility]- provided relief. Asked patient to sign form to obtain office notes. PREVIOUS SURGERY: T8 Kyphoplasty in 09/[address] Melton Surgical Risk Factors: Smoking status: Denies Anticoagulants/antiplatelets: Eliquis Diabetic: No BMI: PAIN EVALUATION 06/06/2023 1314 Pain Level: 6 Pain Location: Back Description: -- just hurts Frequency: Continuous Intervention/Comfort measure: Medication Tylenol History reviewed. No pertinent past medical history. History reviewed. No pertinent surgical history. History reviewed. No pertinent family history. ALLERGIES Allergen Reactions Diatrizoate Meglumi* Anaphylaxis Takes prednisone & benadryl prior to CT scans as pre-meds Penicillin G Unknown Other reaction(s): Shortness of breath, edema Current Outpatient Medications Medication Sig Dispense Refill amLODIPine (NORVASC) 5 mg tablet Take 1 tablet by mouth every afternoon. apixaban (ELIQUIS) 5 mg tab(s) Take 1 tablet by mouth every 12 hours. atorvastatin (LIPITOR) 20 mg tablet Take 0.5 tablets by mouth every afternoon. Cholecalciferol, Vitamin D3, 50 mcg (2,000 unit) cap Take 1 capsule by mouth once daily. flecainide (TAMBOCOR) 100 mg tablet Take 1 tablet by mouth every 12 hours. lisinopril (ZESTRIL) 40 mg tablet Take 1 tablet by mouth every afternoon. metoprolol succinate ER (TOPROL XL) 100 mg Take 1 tablet by mouth every afternoon. octreotide LAR (SANDOSTATIN LAR DEPOT) 20 mg Depot INJ Inject 20 mg intramuscularly. risedronate (ACTONEL) 35 mg tablet Take 35 mg by mouth one time a week. sertraline (ZOLOFT) 100 mg tablet TAKE 1 & 1/2 (ONE AND ONE-HALF) TABLETS BY MOUTH EVERY DAY No current facility-administered medications for this visit. REVIEW OF SYSTEMS Review of Systems Constitutional: Negative for diaphoresis, fatigue and fever. HENT: Negative for ear pain, hearing loss and tinnitus. Eyes: Negative for photophobia, pain and visual disturbance. Respiratory: Negative for cough, chest tightness and shortness of breath. Cardiovascular: Negative for chest pain. Gastrointestinal: Negative for constipation, diarrhea, nausea and vomiting. Endocrine: Negative for polydipsia, polyphagia and polyuria. Genitourinary: Negative for difficulty urinating, frequency and urgency. Musculoskeletal: Positive for back pain. Negative for gait problem, neck pain and neck stiffness. Skin: Negative for color change and rash. Neurological: Negative for dizziness, weakness and numbness. Psychiatric/Behavioral: Negative for agitation and confusion. The patient is not nervous/anxious. OBJECTIVE: BP 119/80 Pulse 64 Resp 16 Wt 159 lb 6.3 oz (72.3kg) SpO2 94% PHYSICAL EXAM: Mental State : Alert, memory function unremarkable. Attention span and concentration normal for patient's age. Speech normal, no receptive or expressive speech deficit. Recent and remote memory normal. Orientation : Oriented to person, place and time. Cranial Nerves : Grossly intact. Sensory: Normal Sensation in upper and lower extremities and trunk to touch and noxious stimuli. Motor: Normal muscle tone and bulk. No tremor or uncontrollable movements. No spasticity or tremor. Gait and Station: Casual gait is normal including stance, stride, and arm swing. STRENGTH: Upper Extremity Strength Exam Right Left Elbow Flexion 5/5 5/5 Elbow Extension 5/5 5/5 Finger Flexion 5/5 5/5 Finger Extension 5/5 5/5 Finger Abduction 5/5 5/5 Lower Extremity Strength Exam Right Left Hip Flexion 5/5 5/5 Knee Flexion 5/5 5/5 Knee Extension 5/5 5/5 Dorsiflexion 5/5 5/5 Plantarflexion 5/5 5/5 Reflexes Right Left Biceps C5-C6 +2 +2 Triceps C7-C8 +2 +2 Wrist C5-6 +2 +2 Patellar L3-4 +2 +2 Achilles L5-S1 +2 +2 Pathologic Reflexes Right Left Guevara's Negative Negative Clonus Negative Negative Data Review IMAGING STUDIES: MRI C, T, L spine - 05/23/2023 IMPRESSION: Multilevel degenerative changes of the cervical spine, most pronounced at C4-C5 and C5-C6 with mild to moderate right and mild left neural foraminal narrowing. Multilevel degenerative changes of the thoracic and lumbar spine, most pronounced at L4-5 with impingement of the right L5 descending nerve root, mild to moderate spinal canal stenosis and mild right neural foraminal narrowing. Old moderate to severe T8 chronic compression fracture. All images independently reviewed by me Assessment & Plan: Ms. Jenkins presents for follow-up. She has a T8 chronic compression fracture that was treated by kyphoplasty by Dr. Melton last summer. When I saw her last, she complained of intermittent weakness inher legs and they ordered an MRI for this. The MRI that she had done a couple weeks ago was very reassuring. She has some moderate degenerative changes in her cervical spine without spinal cord compression. The spinal cord behind the fracture level looks good as well. She does have some mild degenerative scoliosis in her lumbar spine, with right sided foraminal stenosis. She does not have any significant radicular symptoms today. Her biggest complaint is axial low back pain. When she did physical therapy last summer, her back felt quite a bit better. I will provide another referral for physical therapy to help get her some symptomatic relief. I will also make referral to pain management to see if there are any interventional techniques that may help her. She is certainly interested in avoiding surgery if possible, and at this point I do not see any good surgical targets, given her lack of radiculopathy. She is a little bit limited in the medications that she can take given her historyof gastric cancer. I will see her back in the office in 2 months with AP and lateral x-rays of her thoracic and lumbar spine to assess her progress. All questions were answered. Attribution: The following portions of the patient's history were reviewed, confirmed, and updated as necessary:allergies, current medications, past family history, past medical history, past social history, past surgical history, problem list, HPI, and ROS obtained by others. Some elements may be copied from a previous office note and have been reviewed/updated where appropriate. All portions reflect current medical decision making from today. The clinical and radiographic findings as well as the risks, benefits and alternatives of treatmenthave been reviewed in detail with the patient. Advised to call the office if symptoms worsen or new symptoms develop. Patient expressed understanding and is in agreement with plan. Eric Rincon MD [facility] Medical Decision Making: Problems: Moderate: New problem with uncertain prognosis Data: Unique source(s) for external note(s) reviewed: 1 Unique test result(s) reviewed: 2 Unique test(s) ordered: 2 Risk: Moderate: Moderate risk from testing/treatment Medical Decision Making Level: 4 - Moderate This note was partially generated using [employer] voice recognition system, and there may be some incorrect words, spellings, and punctuation that were not noted in checking the note before saving. documented in [facility] NoteHNO ID: [id number] Author: ERIC RINCON MD Service: ? Author Type: Physician Type: Progress Notes Filed: 06/06/2023 13:43 Note Text: NEUROSURGERY FOLLOW UP OFFICE NOTE Eric Rincon MD [facility] Date of visit: June 06, 2023 Patient Name: Ms.Edna Mk Jenkins Date of : 1940 Current Age: [age] year old Sex: female MRN/E# [id number] Last Office Visit: 04/25/2023 Chief Complaint: No chief complaint on file. Past Medical/Surgical History: Mary Jenkins is a 82 year old woman who is referred by Dr. Edgar Melton for neurosurgical evaluation. 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 HPI: Ms. Jenkins was seen in the office on 04/25/2023 as a new patient with a CT showing T8 fracture that she obtained following a fall last summer. She reported intermittent low back pain with paresthesia throughout entire lower extremities that worsened with walking and standing straight up. Pain in her low back right > left was most bothersome. She denied weakness or bowel/bladder dysfunction. She also noted that she was having left shoulder pain that radiated into anterior/posterior aspect of left upper extremity, not passing elbow with intermittent paresthesia to left hand. Denied dexterity or imbalance issues. She had used oral steroids and physical therapy for this and she did have improvement. Given her symptoms and lack of imaging, an MRI of her cervical, thoracic and lumbar spine were ordered and she was to follow up in the office once complete, prompting her visit today. The patient presents to the office today stating her pain is about the same. Since her last visit she has had numbness to BLE twice but that has resolved. She described mid to low back pain bilaterally that hurts to do daily activities, but she still does everything on her own. She rates her pain a 6/10 today. She is also still having left shoulder pain but had been told it is arthritis. She denies falls, loww of bowel/bladder or new weakness. She is here for evaluation and plan of care. PREVIOUS CONSERVATIVE TREATMENTS: Tylenol Ibuprofen Percocet Physical therapy at [facility]- provided relief. Asked patient to sign form to obtain office notes. PREVIOUS SURGERY: T8 Kyphoplasty in 09/[address] Melton Surgical Risk Factors: Smoking status: Denies Anticoagulants/antiplatelets: Eliquis Diabetic: No BMI: PAIN EVALUATION 06/06/2023 1314 Pain Level: 6 Pain Location: Back Description: -- just hurts Frequency: Continuous Intervention/Comfort measure: Medication Tylenol History reviewed. No pertinent past medical history. History reviewed. No pertinent surgical history. History reviewed. No pertinent family history. ALLERGIES Allergen Reactions Diatrizoate Meglumi* Anaphylaxis Takes prednisone AND benadryl prior to CT scans as pre-meds Penicillin G Unknown Other reaction(s): Shortness of breath, edema Current Outpatient Medications Medication Sig Dispense Refill amLODIPine (NORVASC) 5 mg tablet Take 1 tablet by mouth every afternoon. apixaban (ELIQUIS) 5 mg tab(s) Take 1 tablet by mouth every 12 hours. atorvastatin (LIPITOR) 20 mg tablet Take 0.5 tablets by mouth every afternoon. Cholecalciferol, Vitamin D3, 50 mcg (2,000 unit) cap Take 1 capsule by mouth once daily. flecainide (TAMBOCOR) 100 mg tablet Take 1 tablet by mouth every 12 hours. lisinopril (ZESTRIL) 40 mg tablet Take 1 tablet by mouth every afternoon. metoprolol succinate ER (TOPROL XL) 100 mg Take 1 tablet by mouth every afternoon. octreotide LAR (SANDOSTATIN LAR DEPOT) 20 mg Depot INJ Inject 20 mg intramuscularly. risedronate (ACTONEL) 35 mg tablet Take 35 mg by mouth one time a week. sertraline (ZOLOFT) 100 mg tablet TAKE 1 AND 1/2 (ONE AND ONE-HALF) TABLETS BY MOUTH EVERY DAY No current facility-administered medications for this visit. REVIEW OF SYSTEMS Review of Systems Constitutional: Negative for diaphoresis, fatigue and fever. HENT: Negative for ear pain, hearing loss and tinnitus. Eyes: Negative for photophobia, pain and visual disturbance. Respiratory: Negative for cough, chest tightness and shortness of breath. Cardiovascular: Negative for chest pain. Gastrointestinal: Negative for constipation, diarrhea, nausea and vomiting. Endocrine: Negative for polydipsia, polyphagia and polyuria. Genitourinary: Negative for difficulty urinating, frequency and urgency. Musculoskeletal: Positive for back pain. Negative for gait problem, neck pain and neck stiffness. Skin: Negative for color change and rash. Neurological: Negative for dizziness, weakness and numbness. Psychiatric/Behavioral: Negative for agitation and confusion. The patient is not nervous/anxious. OBJECTIVE: BP 119/80 Pulse 64 Resp 16 Wt 159 lb 6 (more content not included)...[facility]04-09-2024 History of Present illness Narrative* Hussein Marshall RT(R) - 05/23/2023 8:00 AM EDT Radiology Service Progress Note PATIENT NAME: Mary Jenkins DATE OF SERVICE: May 23, 2023 TIME: 8:12 AM PATIENT IDENTITY VERIFICATION COMPLETED USING TWO (2) IDENTIFIERS: Name and Date of confirmedby patient verbally. FALL SCREENING: Has the patient had 2 falls in the last year or 1 fall with injury or currently using an Ambulatory Assistive Device (Walker, Cane, Wheelchair, Crutches, etc.)? No PATIENT GENDER DATA: Female. status: : No status: NO. PATIENT RELEVANT IMPLANT DATA REVIEWED: Yes PATIENT PRESENTS WITH AN IMPLANTABLE OR ATTACHED HAZARDOUS MATERIAL SPECIALIST: No RADIOLOGY DEPARTMENT: MR; Exam(s) Completed: Spine: Cervical spine, Thoracic spine, and Lumbar spine PERIPHERAL IV DATA: Not applicable SIGNED BY: RT Neil(R) May 23, 2023 8:12 AM documented in this encounterSelect [facility]24 NoteHNO ID: [id number] Author: HUSSEIN MARSHALL RT(R) Service: ? Author Type: Technologist Type: Progress Notes Filed: 05/23/2023 08:12 Note Text: Radiology Service Progress Note PATIENT NAME: Mary Jenkins DATE OF SERVICE: May 23, 2023 TIME: 8:12 AM PATIENT IDENTITY VERIFICATION COMPLETED USING TWO (2) IDENTIFIERS: Name and Date of confirmed by patient verbally. FALL SCREENING: Has the patient had 2 falls in the last year or 1 fall with injury or currently using an Ambulatory Assistive Device (Walker, Cane, Wheelchair, Crutches, etc.)? No PATIENT GENDER DATA: Female. status: : No status: NO. PATIENT RELEVANT IMPLANT DATA REVIEWED: Yes PATIENT PRESENTS WITH AN IMPLANTABLE OR ATTACHED HAZARDOUS MATERIAL SPECIALIST: No RADIOLOGY DEPARTMENT: MR; Exam(s) Completed: Spine: Cervical spine, Thoracic spine, and Lumbar spine PERIPHERAL IV DATA: Not applicable SIGNED BY: RT Neil(Ozzy) May 23, 2023 8:12 [facility]03-12-2024 History of Present illness Narrative* Eric Rincon MD - 04/25/2023 1:00 PM EDT Images from the original note were not included. NEUROSURGERY CONSULT NOTE Eric Rincon MD [facility] Date of visit: April 25, 2023 Patient Name: Ms.Edna Mk Jenkins Date of : 1940 Current Age: [age] year old Sex: female MRN/E# [id number] Last Office Visit: Visit date not found Chief Complaint: Patient presents with: New Patient Past Medical/Surgical History: Mary Jenkins is a 82 year old woman who is referred by Dr. Edgar Melton for neurosurgical evaluation. 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 HISTORY OF PRESENT ILLNESS : The patient presents to the office today as a new patient with CT and radiographic imaging for evaluation of T8 fracture. She reports intermittent low back pain with paresthesia throughout entire lower extremities that worsen with walking and standing straight up. Pain in her low back right > left is most bothersome.She currently denies any symptoms at office visit. Denies lower extremity weakness or bowel/bladderincontinence. Additionally, she reports left shoulder pain that radiates into anterior/posterior aspect of left upper extremity, not passing elbow with intermittent paresthesia to left hand. Denies dexterity or imbalance issues. She has treated her symptoms with oral medications and physical therapy with symptom improvement. She presents to the office for image review, evaluation and plan of care. PREVIOUS CONSERVATIVE TREATMENTS: Tylenol Ibuprofen Percocet Physical therapy at [facility]- provided relief. Asked patient to sign form to obtain office notes. PREVIOUS SURGERY: T8 Kyphoplasty in 09/[address] Melton Surgical Risk Factors: Smoking status: Denies Anticoagulants/antiplatelets: Eliquis Diabetic: No PAIN EVALUATION 04/25/2023 1255 Pain Level: 0 Pain Location: Back-Lower bilateral legs Description: Numbness;Radiating Duration Amount of Time: 3 Duration Units: Months Frequency: Intermittent History reviewed. No pertinent past medical history. History reviewed. No pertinent surgical history. History reviewed. No pertinent family history. ALLERGIES Allergen Reactions Diatrizoate Meglumi* Anaphylaxis Takes prednisone & benadryl prior to CT scans as pre-meds Penicillin G Unknown Other reaction(s): Shortness of breath, edema Current Outpatient Medications Medication Sig Dispense Refill amLODIPine (NORVASC) 5 mg tablet Take 1 tablet by mouth every afternoon. apixaban (ELIQUIS) 5 mg tab(s) Take 1 tablet by mouth every 12 hours. atorvastatin (LIPITOR) 20 mg tablet Take 0.5 tablets by mouth every afternoon. Cholecalciferol, Vitamin D3, 50 mcg (2,000 unit) cap Take 1 capsule by mouth once daily. flecainide (TAMBOCOR) 100 mg tablet Take 1 tablet by mouth every 12 hours. lisinopril (ZESTRIL) 40 mg tablet Take 1 tablet by mouth every afternoon. metoprolol succinate ER (TOPROL XL) 100 mg Take 1 tablet by mouth every afternoon. octreotide LAR (SANDOSTATIN LAR DEPOT) 20 mg Depot INJ Inject 20 mg intramuscularly. risedronate (ACTONEL) 35 mg tablet Take 35 mg by mouth one time a week. sertraline (ZOLOFT) 100 mg tablet TAKE 1 & 1/2 (ONE AND ONE-HALF) TABLETS BY MOUTH EVERY DAY No current facility-administered medications for this visit. REVIEW OF SYSTEMS Review of Systems Constitutional: Negative for chills, fatigue, fever and unexpected weight change. HENT: Negative for trouble swallowing and voice change. Eyes: Negative for visual disturbance. Respiratory: Negative for shortness of breath, wheezing and stridor. Cardiovascular: Negative for chest pain, palpitations and leg swelling. Gastrointestinal: Negative for diarrhea, nausea and vomiting. Endocrine: Negative for cold intolerance and heat intolerance. Genitourinary: Negative for difficulty urinating, dysuria and urgency. Musculoskeletal: Positive for back pain. Negative for gait problem and neck pain. Skin: Negative for color change and pallor. Allergic/Immunologic: Negative for immunocompromised state. Neurological: Positive for numbness. Negative for speech difficulty, weakness and headaches. Hematological: Does not bruise/bleed easily. Psychiatric/Behavioral: Negative for agitation, behavioral problems and confusion. OBJECTIVE: BP 104/55 Pulse 62 Resp 16 Wt 159 lb 9.8 oz (72.4kg) SpO2 97% PHYSICAL EXAM: Mental State : Alert, memory function unremarkable. Attention span and concentration normal for patient's age. Speech normal, no receptive or expressive speech deficit. Recent and remote memory normal. Orientation : Oriented to person, place and time. Cranial Nerves : Grossly intact. Sensory: Normal Sensation in upper and lower extremities and trunk to touch and noxious stimuli. Motor: Normal muscle tone and bulk. No tremor or uncontrollable movements. No spasticity or tremor. Gait and Station: Casual gait is normal including stance, stride, and arm swing. STRENGTH: Upper Extremity Strength Exam Right Left Elbow Flexion 5/5 5/5 Elbow Extension 5/5 5/5 Finger Flexion 5/5 5/5 Finger Extension 5/5 5/5 Finger Abduction 5/5 5/5 Lower Extremity Strength Exam Right Left Hip Flexion 5/5 5/5 Knee Flexion 5/5 5/5 Knee Extension 5/5 5/5 Dorsiflexion 5/5 5/5 Plantarflexion 5/5 5/5 Reflexes Right Left Biceps C5-C6 +2 +2 Triceps C7-C8 +2 +2 Wrist C5-6 +2 +2 Patellar L3-4 +0 +0 Achilles L5-S1 +0 +0 Pathologic Reflexes Right Left Guevara's Negative Positive Clonus Negative Negative Data Review IMAGING STUDIES: CT of thoracic spine from 07/16/2022: XR of thoracic spine from 04/25/2023: T8 compression fracture s/p vertebroplasty, with [id number] degrees of kyphotic angulation measuring from the superior endplate of T7 to the inferior endplate of T9. This has not appreciably changed compared to outside XR from 09/20/2022. All images independently reviewed by me. Assessment & Plan: Ms. Jenkins is an 82-year-old woman who tripped and fell approximately 9 months ago and sustained aT8 compression fracture that was treated by vertebroplasty by Dr. Melton at [facility]. She initially had low thoracic back pain, but this improved after her vertebroplasty procedure. Over the last several months, she has been developing worsening low back pain and she is felt that her legs have gone completely numb and giving out on her on 2 separate occasions. This was in a nondermatomal distribution. She denies any radiating pain into her lower extremities. She does have some pain in her left shoulder and tricep. I reviewed her prior CT and x-rays, which she brought on a CD. She has a T8 compression fracture with moderate to severe height loss that was treated with vertebroplasty. This has been stable on several recent x-rays, with approximately 36 degrees of kyphotic angulation across the segment. Most of her pain is over the lumbosacral junction. I do not have two-dimensional imaging of her spine that is recent; given her lower extremity numbness, I am concerned about spinal cord compression. She alsohas some upper extremity symptoms, including left shoulder and tricep pain as well as a positive left Thad's. Given these findings, I will order an MRI of her entire spine and see her back to discuss the results. All questions were answered. Attribution: The following portions of the patient's history were reviewed, confirmed, and updated as necessary:allergies, current medications, past family history, past medical history, past social history, past surgical history, problem list, HPI, and ROS obtained by others. Some elements may be copied from a previous office note and have been reviewed/updated where appropriate. All portions reflect current medical decision making from today. The clinical and radiographic findings as well as the risks, benefits and alternatives of treatmenthave been reviewed in detail with the patient. Advised to call the office if symptoms worsen or new symptoms develop. Patient expressed understanding and is in agreement with plan. Eric Rincon MD [facility] Medical Decision Making: Problems: Moderate: New problem with uncertain prognosis Data: Unique source(s) for external note(s) reviewed: 1 Unique test result(s) reviewed: 3+ Unique test(s) ordered: 1 Risk: Moderate: Moderate risk from testing/treatment Medical Decision Making Level: 4 - Moderate This note was partially generated using [employer] voice recognition system, and there may be some incorrect words, spellings, and punctuation that were not noted in checking the note before saving. documented in this encounterSelect [facility]-12-[facility]24 NoteHNO ID: [id number] Author: ERIC RINCON MD Service: ? Author Type: Physician Type: Progress Notes Filed: 04/25/2023 13:58 Note Text: NEUROSURGERY CONSULT NOTE Eric Rincon MD [facility] Date of visit: April 25, 2023 Patient Name: Ms.Edna Mk Jenkins Date of : 1940 Current Age: [age] year old Sex: female MRN/E# [id number] Last Office Visit: Visit date not found Chief Complaint: Patient presents with: New Patient Past Medical/Surgical History: Mary Jenkins is a 82 year old woman who is referred by Dr. Edgar Melton for neurosurgical evaluation. 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 HISTORY OF PRESENT ILLNESS : The patient presents to the office today as a new patient with CT and radiographic imaging for evaluation of T8 fracture. She reports intermittent low back pain with paresthesia throughout entire lower extremities that worsen with walking and standing straight up. Pain in her low back right > left is most bothersome. She currently denies any symptoms at office visit. Denies lower extremity weakness or bowel/bladder incontinence. Additionally, she reports left shoulder pain that radiates into anterior/posterior aspect of left upper extremity, not passing elbow with intermittent paresthesia to left hand. Denies dexterity or imbalance issues. She has treated her symptoms with oral medications and physical therapy with symptom improvement. She presents to the office for image review, evaluation and plan of care. PREVIOUS CONSERVATIVE TREATMENTS: Tylenol Ibuprofen Percocet Physical therapy at [facility]- provided relief. Asked patient to sign form to obtain office notes. PREVIOUS SURGERY: T8 Kyphoplasty in 09/[address] Melton Surgical Risk Factors: Smoking status: Denies Anticoagulants/antiplatelets: Eliquis Diabetic: No PAIN EVALUATION 04/25/2023 1255 Pain Level: 0 Pain Location: Back-Lower bilateral legs Description: Numbness;Radiating Duration Amount of Time: 3 Duration Units: Months Frequency: Intermittent History reviewed. No pertinent past medical history. History reviewed. No pertinent surgical history. History reviewed. No pertinent family history. ALLERGIES Allergen Reactions Diatrizoate Meglumi* Anaphylaxis Takes prednisone AND benadryl prior to CT scans as pre-meds Penicillin G Unknown Other reaction(s): Shortness of breath, edema Current Outpatient Medications Medication Sig Dispense Refill amLODIPine (NORVASC) 5 mg tablet Take 1 tablet by mouth every afternoon. apixaban (ELIQUIS) 5 mg tab(s) Take 1 tablet by mouth every 12 hours. atorvastatin (LIPITOR) 20 mg tablet Take 0.5 tablets by mouth every afternoon. Cholecalciferol, Vitamin D3, 50 mcg (2,000 unit) cap Take 1 capsule by mouth once daily. flecainide (TAMBOCOR) 100 mg tablet Take 1 tablet by mouth every 12 hours. lisinopril (ZESTRIL) 40 mg tablet Take 1 tablet by mouth every afternoon. metoprolol succinate ER (TOPROL XL) 100 mg Take 1 tablet by mouth every afternoon. octreotide LAR (SANDOSTATIN LAR DEPOT) 20 mg Depot INJ Inject 20 mg intramuscularly. risedronate (ACTONEL) 35 mg tablet Take 35 mg by mouth one time a week. sertraline (ZOLOFT) 100 mg tablet TAKE 1 AND 1/2 (ONE AND ONE-HALF) TABLETS BY MOUTH EVERY DAY No current facility-administered medications for this visit. REVIEW OF SYSTEMS Review of Systems Constitutional: Negative for chills, fatigue, fever and unexpected weight change. HENT: Negative for trouble swallowing and voice change. Eyes: Negative for visual disturbance. Respiratory: Negative for shortness of breath, wheezing and stridor. Cardiovascular: Negative for chest pain, palpitations and leg swelling. Gastrointestinal: Negative for diarrhea, nausea and vomiting. Endocrine: Negative for cold intolerance and heat intolerance. Genitourinary: Negative for difficulty urinating, dysuria and urgency. Musculoskeletal: Positive for back pain. Negative for gait problem and neck pain. Skin: Negative for color change and pallor. Allergic/Immunologic: Negative for immunocompromised state. Neurological: Positive for numbness. Negative for speech difficulty, weakness and headaches. Hematological: Does not bruise/bleed easily. Psychiatric/Behavioral: Negative for agitation, behavioral problems and confusion. OBJECTIVE: BP 104/55 Pulse 62 Resp 16 Wt 159 lb 9.8 oz (72.4kg) SpO2 97% PHYSICAL EXAM: Mental State : Alert, memory function unremarkable. Attention span and concentration normal for patient's age. Speech normal, no receptive or expressive speech deficit. Recent and remote memory normal. Orientation : Oriented to person, place and time. Cranial Nerves : Grossly intact. Sensory: Normal Sensation in upper and lower extremities (more content not included)...[facility]03-07-2024 Miscellaneous Notes* Telephone Encounter - Karin Padilla - 04/20/2023 8:17 AM EST Left message with [facility] medical records requesting to have patient's CT Thoracic Spine form 07/16/22 pushed to [facility]. Provided office phone number and my extension.. [facility] History of Present illness Narrative* PAWEL Main - 03/31/2023 12:00 PM EST Images from the original note were not included. REFERRING MD: Referral from: Dr. Matt Nunez Scheduled with Dr. David on 11/25 DX: metastatic NEC Ki67%: 5% Pathology: [facility]. Hosp 09/2020 HISTORY OF PRESENT ILLNESS: Mary Jenkins is a 82 y.o. female who is diagnosed with neuroendocrine tumor. She comes here today for evaluation regarding diagnosis. She was in usual state of health until: 2015: Resection of parathyroid adenomas August 2020: Acute onset of abdominal pain and diarrhea. She was treated for diverticulitis. Diarrheaimproved, but continued with RUQ pain. September 25, 2020: Liver core biopsy: [facility] read: A. Liver mass, CT-guided core biopsy: Metastatic well-differentiated neuroendocrine tumor, G2 Immunohistochemical stain performed at outside hospital TTF 1 negative S100 negative CK7 negative CK20 negative Napsin a negative CD117 negative P 40 negative Pancytokeratin positive NSE positive CD56 positive Synaptophysin positive Chromogranin positive Henry 2 positive CDX2 positive CK8 positive Ki-67: 6% Comment: The immunohistochemical profile suggests a gastrointestinal primary. Clinical correlation is recommended. 10/13/2020: FDG PET: Increased FDG distrubution noted in the region of the proximal ascending colong. Liver does not uptake FDG. 10/2020: Sandostatin q 28 days 12/29/2020: MRI A/P: IMPRESSION: 1. Probable mass involving the distal/terminal ileum which may represent the primary site of the known neuroendocrine tumor. No upstream bowel distention. No mesenteric masses. 2. Multiple lesions within the liver consistent with metastatic disease. Dominant lesion in posterior left lobe. 3. No adenopathy in the abdomen or pelvis. 4. Status post hysterectomy and cholecystectomy. 03/08/2021: laparoscopic right colectomy: A. Right colon and terminal ileum, laparoscopic right hemicolectomy: Well-differentiated neuroendocrine tumor, grade 1,involving the terminal ileum, see synoptic report Surgical margins are negative for tumor Tumor is panmural and involves the serosa Extensive perineural invasion 20 benign lymph nodes (0/20) Immunohistochemical stains for chromogranin and synaptophysin are positive. Manual quantitative immunohistochemistry for Ki-67 is 0%. Zero mitoses were seen in 2 mm2. 03/22/21- left hepatic lobe TAE by Dr. Rush 05/31/2021: Right hepatic lobe TAE 06/16/2021: Venous doppler: +acute DVT of right tibioperoneal trunk, peroneal, soleus veins. 06/19/2021 CT C/A/P multiple lesions of decreased attenuation within the liver worrisome for metastatic disease including a 7 cm lesion within the posterior segment the right lobe of the liver. There is diffuse atherosclerotic calcification of the abdominal aorta, without a demonstrated aneurysm. 08/13/2021 MRI A/P IMPRESSION: 1. Status post right hemicolectomy involving the previously described mass within the distal/terminal ileum, compatible with patient's known history of neuroendocrine tumor. No evidence of recurrence within the resection bed. No discrete mesenteric masses. 2. Status post interval transarterial bland embolization of lesions in segment 2/3 which has decreased in size (now measuring 3.0 x 2.4 cm, previously 4.6 x 4.1 cm.) however demonstrates persistent peripheral arterial phase enhancement, suggestive of viable disease. 3. Status post interval transarterial bland embolization lesion in segment 7. No definite abnormal enhancement is identified. Interval development of likely posttreatment confluent necrotic collections in this region. 4. Additional previously indexed arterially enhancing lesions in segment 4A/5 are not significantly changed. 5. Focus of intrinsic T1 hyperintensity within the proximal common hepatic is suggestive of posttreatment hemobilia. No significant proximal intrahepatic biliary ductal dilation. Mild persistent prominence of the common bile duct could relate to postcholecystectomy ectasia. Chief Complaint Patient presents with Follow-up Net- 6 month follow up. Scans & labs done on 03/24 at [facility]. Gastrin elevated and concerned for reasoning. Worried she didn't fast long enough. Injection for bones, unsure if it is okay to have with NET dx and kristal shots. Pain Back and pelvic pain. Back pain all the time taking tylenol with some relief. At times hurts to stand up at all. Unsure on how to pursue osteoarthritis pain? Sees an orthopedic doctor end of April,locally in [place]. Edema Left lower extremity below knee. Dr. Ibarra with ortho wants to do MRI but unsure how often MRIs can be done. Wanted to have our MRI done first. Patient doing well this visit. Diarrhea is based off of certain foods. See above for CC. ECOG PS: 1 REVIEW OF SYSTEMS: A review of systems was performed with the patient at today's patient and is negative except for those items mentioned in the interval history and those items mentioned below as well as in the nursing documentation review of systems. 03/31/2023 ONC AMB Nursing Assessment Performance Status Grade 1 Fatigue Grade 0 Nausea Grade 0 Vomiting Grade 0 Anorexia Grade 0 Diarrhea Grade 1 Constipation Grade 0 Peripheral Motor Neuropathy Grade 1 Depression Grade 0 Mucositis (oral, pharyngeal) Grade 0 Tinnitus Grade 1 Dyspnea Grade 1 Pain Grade 1 Fever Grade 0 Localized Edema Grade 1 Rash Maculo-Papular Grade 0 Palmar-Plantar Erythrodysesthesia Syndrome Grade 0 Allergies Allergen Reactions Contrast Dye [Ivp Dye, Iodine Containing] Anaphylaxis Takes prednisone & benadryl prior to CT scans as pre-meds Penicillin G Other reaction(s): Shortness of breath, edema Outpatient Medications Prior to Visit Medication Sig Dispense Refill acetaminophen 325 MG tablet Take 2 tablets by mouth every 6 hours. (Patient taking differently: Take 2 tablets by mouth every 6 hours as needed.) 0 amLODIPine 5 MG tablet Take 1 tablet by mouth daily every morning. apixaban 5 MG tablet Take 1 tablet by mouth every 12 hours. atorvastatin 10 MG tablet Take 1 tablet by mouth daily every morning. cholecalciferol 50 MCG (2000 UT) capsule Take 1 capsule by mouth daily. flecainide 100 MG tablet Take one tablet twice a day for heartbeat. lisinopril 40 MG tablet Take 1 tablet by mouth daily every morning. Magnesium 250 MG tablet Take 1 tablet by mouth daily every morning. metoprolol succinate 100 MG tablet XL 1 tablet daily every morning. octreotide acetate (SandoSTATIN LAR Depot) 20 MG Kit injection Inject 20 mg intramuscularly Once. Every 30 days predniSONE & diphenhydrAMINE 3 x 50 MG & 1 x 50 MG Kit Take 1 kit by mouth As directed. Take 50 mg prednisone 13 & 7 hrs prior to scans. Take 50 mg benadryl & 50 mg prednisone 1 hour prior. Ok to split kit if needed 1 kit 3 risedronate 35 MG tablet Take 1 tablet by mouth every 7 days. Sertraline HCl 150 MG capsule 150 mg daily every morning. oxyCODONE-acetaminophen (Percocet) 7.5-325 MG tablet Take 1 tablet by mouth every 6 hours as neededfor up to 14 days. (Patient not taking: Reported on 03/31/2023) 30 tablet 0 Ibuprofen 200 MG capsule Take 1 capsule by mouth. Take 1-3 capsules at a given time. Uses for leg pain/aches. No facility-administered medications prior to visit. Past Medical History: Diagnosis Date Arrhythmia atrial fibrillation Essential hypertension, benign History of cancer Hyperlipidemia Rheumatic fever Past Surgical History: Procedure Laterality Date OCCLUSION/EMBOLIZATION ENDOVASCULAR TUMORS/ORGAN ISCHEMIA/INFARCTION N/A 05/31/2021 Laterality: N/A; Surgeon: Humberto Rush MD; Location: [facility] INTERVENTIONAL RADIOLOGY (VIR) OCCLUSION/EMBOLIZATION ENDOVASCULAR TUMORS/ORGAN ISCHEMIA/INFARCTION N/A 03/22/2021 Laterality: N/A; Surgeon: Humberto Rush MD; [facility] COLECTOMY PARTIAL LAPAROSCOPIC Right 03/08/2021 Laterality: Right; Surgeon: Rodrigo López MD; Location: [facility] MA[facility] OR PARATHYROIDECTOMY 2014 removed 2 nodules APPENDECTOMY BREAST LUMPECTOMY Left Benign per pt report; approximately age 41 CHOLECYSTECTOMY HYSTERECTOMY KNEE SURGERY ORIF WRIST Left OTHER SURGICAL spine surgery for T8 fracture. Social History Tobacco Use Smoking status: Never Smokeless tobacco: Never Substance Use Topics Alcohol use: Not Currently Drug use: Never Family History Problem Relation Age of Onset Coronary Artery Disease Father Cancer- Other Paternal Uncle lip cancer Uterine Cancer Paternal Grandmother Thyroid Cancer Daughter 44 total thyroidectomy- follicular & papillary Breast Cancer Cousin Family Hx: Daughter has thyroid cancer Social Hx: no environmental exposures PHYSICAL EXAMINATION: Patient is in no acute distress. Patient is alert, oriented to person, place and time. Blood pressure 183/83, pulse 61, temperature 97.2 F (36.2 C), temperature source Infrared,resp. rate 12, height 1.549 m (5' 1), weight 72.1 kg (159 lb), SpO2 96%. HEENT: Head atraumatic, normocephalic. Gross vision intact. Eyes are nonicteric. Neck: supple, symmetrical Lungs: Clear to auscultation bilaterally. No rales or wheezing. Heart: Regular heart rate and rhythm. Abdomen: Soft, nontender, non distended, without palpable masses. Normoactive bowel sounds present. No liver or massare palpable. Extremities: No edema Skin: Warm and dry with good skin turgor. No rash. Lymph nodes:No lymphadenopathy noted in left or right inguinal area Neurologic: No focal deficits, grossly intact. IMAGING STUDIES: CT CHEST WITHOUT CONTRAST Result Date: 03/27/2023 EXAM: CT CHEST WITHOUT CONTRAST, 03/24/2023 14:50 PM COMPARISON: September 08, 2022 CLINICAL INDICATIONS: neuroendocrine; RELEVANT CLINICAL HISTORY: D3A.8:Neuroendocrine tumor TECHNIQUE: CT images of the chest were obtained without intravenous contrast. FINDINGS: Lungs and Pleura: Subpleural scarring is present within the lung apices. Nodule in the superior segment of the right lower lobe appears stable in size measuring 7 x 7 mm (series 3, image 100), unchanged from prior. No new or enlarging nodules are identified. Tracheobronchial tree: No abnormality. Mediastinum/Zakia: No mediastinal or hilar lymphadenopathy. Axilla and Supraclavicular Regions: A few tiny bilateral axillary lymph nodes are stable and do not meet size criteria for pathologic lymphadenopathy. Cardiovascular: The cardiac chambers are within normal limits. The pericardium is normal. Scattered atherosclerotic changes of the thoracic aorta, arch branch vessels, and coronary arteries. The central pulmonary arteries are unremarkable. Upper Abdomen: Please see same-day MRI abdomen study for description of intra-abdominal contents. Bones and Soft Tissue: Unchanged chronic compression deformity of the T8 vertebral body, status post vertebroplasty. No suspicious lytic or blastic osseous lesions are identified. IMPRESSION: 1. Stable size of a right lower lobe pulmonary nodule which demonstrated mild uptake onprevious PET/CT. No new or enlarging pulmonary nodules. 2. No intrathoracic lymphadenopathy. ABDOMEN/PELVIS WITHOUT AND WITH CONTRAST Result Date: 03/24/2023 EXAM: MRI ABDOMEN/PELVIS WITHOUT AND WITH CONTRAST (MRI ABDOMEN AND PELVIS WITH AND WITHOUT CONTRAST), 03/24/2023 15:30 PM CLINICAL INDICATIONS: neuroendocrine; D3A.8:Neuroendocrine tumor COMPARISON:MRI abdomen and pelvis from September 08, 2022. TECHNIQUE: Multiplanar, multisequence MRI scanning was performed of the abdomen and pelvis before and after the administration of intravenous contrast. CONTR AST: gadoterate Meglumine (DOTAREM) 5 MMOL/10ML injection 3-60 mL; Route of Administration: Intravenous; Dose: 14 mL. FINDINGS: Lung Bases: Please see dedicated chest CT scan of the same date for full description of the intra- thoracic contents. Liver: The liver is normal in morphology with diffuse s teatosis. Stable post-treatment changes of bland embolization. Hepatic metastases are mostly unchanged. Index lesions as follows: * Dominant lesion in segment 2/3 measures 3.1 x 2.4 cm (series 25, image 29), previously 3.0 x 2.5 cm. There is persistent rim enhancement. * The intermediate T2 signal i ntensity/T1 hypointense nonenhancing structures in segment 7 are stable. These may reflect fluid collections or treated lesions. The more superior lesion measures 1.5 x 0.8 cm (series 41, image 23), previously 1.6 x 0.9 cm. The more inferior collection measures 1.7 x 1.0 cm (series 41, image 28), previously 1.8 x 1.1 cm (series 35, image 27), previously 2.8 x 1.9 cm. * Segment 4A/5 lesion measures 1.0 x 0.9 cm (series 25, image 46), previously 1.0 x 1.0 cm. No new lesion. Portal vein is patent.Biliary/Gallbladder: Cholecystectomy. The intrahepatic biliary tree is normal in caliber. Mild prominence of the common bile duct is likely due to postcholecystectomy ectasia. The T1 hyperintense focu s in the proximal common hepatic duct is no longer present. Spleen: Normal. Pancreas: Normal. Adrenals: Normal. Kidneys: Normal. No hydronephrosis. Gastrointestinal: No bowel dilation. Right hemicolectomy. Few colonic and duodenal diverticula. Mesenteric and perirectal nodules are stable (series 3, image 87 and 116); these had uptake on prior PET/CT. Lymph nodes: No abdominal/retroperitoneal adenopathy is identified. The pelvic lymph nodes with uptake on prior PET/CT are not enlarged and stablein appearance. Peritoneum/retroperitoneum: No ascites. Vasculature: The abdominal aorta is normal in course and caliber. Celiac and superior mesenteric arteries are patent. The portal, splenic, and superior mesenteric veins are patent. Bladder: Normal. Pelvic Organs: Hysterectomy. No adnexal mass. Bones: Degenerative changes with levocurvature of the lumbar spine. Enhancing focus in the sacrum adjacent to the left sacroiliac joint (series 83, image 106) in the right anterior acetabulum (series 83, image 133) are stable. These may be degenerative although there was mild uptake on prior PET/CT. IMPRESSION: 1. No change from August 2022. Stable hepatic metastases and perirectal and mesenteric nodules. 2. Stable nonenhancing structures in hepatic segment 7. These may reflect treated metastases or postembolization fluid collections. 3. Unchanged enhancing foci in the left sacrum and acetabulum. Imaging results have been reviewed and discussed with the patient. LABS: Latest Reference Range & Units 03/24/23 14:30 SODIUM 135 - 145 mmol/L 138 POTASSIUM 3.5 - 5.0 mmol/L 4.0 CHLORIDE 98 - 108 mmol/L 104 CARBON DIOXIDE (CO2) 21 - 31 mmol/L 27 BUN 7 - 25 mg/dL 27 (H) Creatinine 0.50 - 1.20 mg/dL 0.89 BUN/CREA RATIO 30 eGFR, CKD-EPI, Female >=60 mL/min/1.73m2 65 CALCIUM 8.6 - 10.5 mg/dL 9.5 ANION GAP 7 - 17 mmol/L 11 OSMOLALITY (CALC) 278 - 305 mOsm/kg 293 BILIRUBIN, TOTAL <1.5 mg/dL 0.6 PROTEIN, TOTAL 6.4 - 8.3 g/dL 7.4 Albumin 3.5 - 5.0 g/dL 4.4 ALKALINE PHOSPHATASE 32 - 126 U/L 100 ALT 9 - 48 U/L 9 AST 10 - 39 U/L 16 LACTATE DEHYDROGENASE 100 - 190 U/L 135 GLUCOSE 70 - 99 mg/dL 88 Chromogranin A <93 ng/mL 73 GASTRIN, DRUG-STIMULATED pg/mL 400 (H) WBC 3.99 - 11.19 K/uL 7.79 RBC 3.91 - 5.04 M/uL 4.40 HEMOGLOBIN 11.4 - 15.2 g/dL 12.7 HEMATOCRIT 34.9 - 44.3 % 39.3 MEAN CELL VOLUME 79.6 - 97.7 fL 89.3 Mean Cell HGB 25.9 - 33.9 pg 28.9 MEAN CELL HGB CONCENTRATION 31.4 - 35.9 g/dL 32.3 RBC DISTRIBUTION 10.8 - 14.9 % 14.8 PLATELET COUNT 150 - 393 K/uL 231 MEAN PLATELET VOLUME 8.5 - 12.2 fL 9.7 RBC, NUCLEATED <=0.2 /100 WBC 0.0 NEUTROPHILS % % 62.4 LYMPHOCYTES % % 25.3 MONOCYTES % % 9.1 EOSINOPHILS % % 2.3 BASOPHILS % % 0.6 IMMATURE GRANS% % 0.3 SEGS + Bands, Absolute 1.64 - 7.28 K/uL 4.86 IMMATURE GRANS ABSOLUTE <=0.08 K/uL <0.04 LYMPHS, ABSOLUTE 1.16 - 3.51 K/uL 1.97 MONOS, ABSOLUTE 0.22 - 0.87 K/uL 0.71 EOS, ABSOLUTE 0.00 - 0.42 K/uL 0.18 Baso Abs# Auto 0.00 - 0.15 K/uL 0.05 DIFF STATUS Electronic Differential (H): Data is abnormally high Lab results have been reviewed and discussed with the patient. IMPRESSION & PLAN: Disease Assessment Dx: WD NET Ki-67 6% of primary likely ileum (FDG PET mesenteric uptake SUV 4.2) 10/2020: Sandostatin started 03/08/2021: laparoscopic right hemicolectomy: A. Right colon and terminal ileum, laparoscopic right hemicolectomy: Well-differentiated neuroendocrine tumor, grade 1,involving the terminal ileum, see synoptic report Surgical margins are negative for tumor Tumor is panmural and involves the serosa Extensive perineural invasion 20 benign lymph nodes (0/20) Immunohistochemical stains for chromogranin and synaptophysin are positive. Manual quantitative immunohistochemistry for Ki-67 is 0%. Zero mitoses were seen in 2 mm2. 03/22/21- left hepatic TAE by Dr. Rush. 05/31/2021: Right hepatic. Tolerated well. 06/16/2021: Venous doppler: +acute DVT of right tibioperoneal trunk, peroneal, soleus veins Assessment: Tumor burden: Liver, terminal ileum, LN: medial right lower lobe pulmonary nodule with focal tracer uptake, suspicious for pulmonary metastasis. Multiple right internal mammary, retroperitoneal, mesenteric and pelvic lymph nodes with significant tracer uptake Symptom [place] at presentation: Diarrhea which improved on sandostatin. Pace of disease: Based on scans between August 2020 and Dec 2020: Liver lesions are stable. Plan: Scans show stability. Gastin with slight elevation. Patient with back pain. I will recheck gastrin and get a GA PET in 3 months and RTC with Dr. David. - Continue Sandostatin to 30 mg, doing well. - Options at PD include PRRT, Afinitor, cabozantinibl, or repeat TAE Other diagnosis and plan: #DVT - started on 2.5 mg eliquis BID. Experienced RLE edema and pain which has now subsided. #HTN: Uncontrolled. Discussed at every visit. She needs to follow up with PCP/cardiology. - metoprolol, amlodipine, & lisinopril The patient had many questions all that were answered to her satisfaction. She will contact the clinic with any questions or concerns. She understands and agrees to the plan. TATI Main, PANerissaC Physician Pacu Nurse Neuroendocrine/Thyroid Tumor Program [facility]reet [facility] documented in this encounterU [place]02-16-2024 Instructions* Patient Instructions* PAWEL Main - 03/31/2023 12:00 PM EST Return to clinic : [address] David. GA PET can be same day. SSA needs to be 4 weeks away . Labs same day. Please recheck b/p Sandostatin locally documented in this encounterOSU [place]11-22-[place]23 History of Present illness Narrative* Esme Perez MD - 01/04/2023 1:00 PM EST PCP: Blanca Cruz Referring provider: Erwin David MD CC: Thyroid nodules History of Present Illness: Mary Jenkins is a 82 y.o. female who presents to the Endocrine clinic for evaluation of thyroidnodules. She has a history of neuroendocrine tumor, diagnosed in 2020, currently treated with Sandostatin q 28 days. She also underwent a resection of parathyroid adenomas in 2014. She was told about small thyroid nodules during her evaluation for parathyroid adenomas. 11/18/2022 Thyroid US showed right mid 8 mm nodule TR3 and left mid 7 mm nodule TR2. TSH from 09/2022 was 1.4. The patient reports no neck compressive symptoms. Denies dysphagia, orthopnea, hoarseness. The patient has not noticed progressive enlargement of goiter. She denies recent change in weight, change in appetite, fatigue, low energy, anxiety, emotional lability, weakness, tremor, palpitations, heat or cold intolerance, increased perspiration, change in bowel movements, changes in skin, changes in hair. Family history of thyroid disorders, including cancer: Daughter has papillary and follicular thyroid carcinoma History of neck irradiation: negative I have reviewed her medical, surgical, family and social history and have updated medication and allergy information in the computerized patient record. Review of Systems - Positives are marked with bold letters. Negatives are not bold. Constitutional: fatigue, confusion, changes in mental status Cardiovascular: palpitations, chest pain, claudication. Respiratory: dyspnea, SCHMITT, Cough. Gastrointestinal: nausea, vomiting, diarrhea, constipation, abdominal pain. Neurological: dizziness, tingling, neuropathic pain, headaches. Endocrine: heat or cold intolerance, polyphagia, polydipsia, polyuria, nocturia. Psychiatric: mood changes, depression All other systems negative. Physical Exam: Constitutional: well-developed, in no distress. Neck: no thyromegaly present. No discrete nodularity identified. Cardiovascular: regular rate and rhythm, Pulmonary/Chest: normal breath sounds Musculoskeletal: Normal range of motion Neurological: alert, not disoriented, no fine hand tremor with hands extended. Skin: No rash in all extremities. No nail pitting. No skin dryness. Psychiatric: Appropriate mood and affect. Procedure / Imaging / Lab Data: Pertinent procedure/imaging/lab data was reviewed/discussed with the patient today: Assessment / Impression & Plan: Mary Jenkins is a 82 y.o. female who was diagnosed with neuroendocrine tumor in 2020, currentlyon Sandostatin q 28 days presents for management of thyroid nodules. She underwent thyroid US in 11/2022 demonstrating two small nodules bilaterally. She reports thyroid nodules were first noted at the time of the work up for parathyroid disease. Previous thyroid US images are not available. I reviewed ultrasound images with the patient. Discussed thyroid nodules appear small and of low suspicion. FNA biopsy is not recommended. We have discussed the pathophysiology of thyroid nodules and the risk of malignancy is about 7%-15%overall in cold nodules. Will see her in a year for a follow up thyroid US. Esme Perez MD Exchange Engineersteam engineer Department of Internal Medicine Division of Endocrinology, Diabetes and Metabolism [facility] Instructions* Patient Instructions* Esme Perez MD - 01/04/2023 1:00 PM EST Follow up in 1 year. documented in this encounterU [place]08-25-2023 History of Present illness Narrative* PAWEL Main - 10/07/2022 1:00 PM EDT Images from the original note were not included. REFERRING MD: Referral from: Dr. Matt Nunez Scheduled with Dr. David on 11/25 DX: metastatic NEC Ki67%: 5% Pathology: [facility] 09[facility] HISTORY OF PRESENT ILLNESS: Mary Jenkins is a 81 y.o. female who is diagnosed with neuroendocrine tumor. She comes here today for evaluation regarding diagnosis. She was in usual state of health until: 2014: Resection of parathyroid adenomas August 2020: Acute onset of abdominal pain and diarrhea. She was treated for diverticulitis. Diarrheaimproved, but continued with RUQ pain. September 25, 2020: Liver core biopsy: [facility] read: A. Liver mass, CT-guided core biopsy: Metastatic well-differentiated neuroendocrine tumor, G2 Immunohistochemical stain performed at outside hospital TTF 1 negative S100 negative CK7 negative CK20 negative Napsin a negative CD117 negative P 40 negative Pancytokeratin positive NSE positive CD56 positive Synaptophysin positive Chromogranin positive Henry 2 positive CDX2 positive CK8 positive Ki-67: 6% Comment: The immunohistochemical profile suggests a gastrointestinal primary. Clinical correlation is recommended. 10/13/2020: FDG PET: Increased FDG distrubution noted in the region of the proximal ascending colong. Liver does not uptake FDG. 10/2020: Sandostatin q 28 days 12/29/2020: MRI A/P: IMPRESSION: 1. Probable mass involving the distal/terminal ileum which may represent the primary site of the known neuroendocrine tumor. No upstream bowel distention. No mesenteric masses. 2. Multiple lesions within the liver consistent with metastatic disease. Dominant lesion in posterior left lobe. 3. No adenopathy in the abdomen or pelvis. 4. Status post hysterectomy and cholecystectomy. 03/08/2021: laparoscopic right colectomy: A. Right colon and terminal ileum, laparoscopic right hemicolectomy: Well-differentiated neuroendocrine tumor, grade 1,involving the terminal ileum, see synoptic report Surgical margins are negative for tumor Tumor is panmural and involves the serosa Extensive perineural invasion 20 benign lymph nodes (0/20) Immunohistochemical stains for chromogranin and synaptophysin are positive. Manual quantitative immunohistochemistry for Ki-67 is 0%. Zero mitoses were seen in 2 mm2. 03/22/21- left hepatic lobe TAE by Dr. Rush 05/31/2021: Right hepatic lobe TAE 06/16/2021: Venous doppler: +acute DVT of right tibioperoneal trunk, peroneal, soleus veins. 06/19/2021 CT C/A/P multiple lesions of decreased attenuation within the liver worrisome for metastatic disease including a 7 cm lesion within the posterior segment the right lobe of the liver. There is diffuse atherosclerotic calcification of the abdominal aorta, without a demonstrated aneurysm. 08/13/2021 MRI A/P IMPRESSION: 1. Status post right hemicolectomy involving the previously described mass within the distal/terminal ileum, compatible with patient's known history of neuroendocrine tumor. No evidence of recurrence within the resection bed. No discrete mesenteric masses. 2. Status post interval transarterial bland embolization of lesions in segment 2/3 which has decreased in size (now measuring 3.0 x 2.4 cm, previously 4.6 x 4.1 cm.) however demonstrates persistent peripheral arterial phase enhancement, suggestive of viable disease. 3. Status post interval transarterial bland embolization lesion in segment 7. No definite abnormal enhancement is identified. Interval development of likely posttreatment confluent necrotic collections in this region. 4. Additional previously indexed arterially enhancing lesions in segment 4A/5 are not significantly changed. 5. Focus of intrinsic T1 hyperintensity within the proximal common hepatic is suggestive of posttreatment hemobilia. No significant proximal intrahepatic biliary ductal dilation. Mild persistent prominence of the common bile duct could relate to postcholecystectomy ectasia. Chief Complaint Patient presents with Follow-up Neuroendo- she had fallen and had surgery on back and doing better. She is doing PT. This was done outside of [facility] part of [place]. Patient doing well this visit. Diarrhea is based off of certain foods. ECOG PS: 1 REVIEW OF SYSTEMS: A review of systems was performed with the patient at today's patient and is negative except for those items mentioned in the interval history and those items mentioned below as well as in the nursing documentation review of systems. 10/07/2022 ONC AMB Nursing Assessment Have you recently lost weight without trying? 0- no Have you been eating poorly because of decreased appetite? 0- No Malnutrition Screening Tool Score 0 Patient able to care for self at home? yes Performance Status Grade 0 Fatigue Grade 1 Nausea Grade 0 Vomiting Grade 0 Anorexia Grade 0 Constipation Grade 0 Peripheral Motor Neuropathy Grade 0 Depression Grade 0 Mucositis (oral, pharyngeal) Grade 0 Dyspnea Grade 1 Pain Grade 0 Fever Grade 0 Localized Edema Grade 1 Rash Maculo-Papular Grade 0 Allergies Allergen Reactions Contrast Dye [Ivp Dye, Iodine Containing] Anaphylaxis Takes prednisone & benadryl prior to CT scans as pre-meds Penicillin G Other reaction(s): Shortness of breath, edema Outpatient Medications Prior to Visit Medication Sig Dispense Refill acetaminophen 325 MG tablet Take 2 tablets by mouth every 6 hours. 0 amLODIPine 5 MG tablet Take 1 tablet by mouth daily every morning. atorvastatin 10 MG tablet Take 1 tablet by mouth daily every morning. cholecalciferol 50 MCG (2000 UT) capsule Take 1 capsule by mouth daily. Eliquis 2.5 MG tablet Take 1 tablet by mouth every 12 hours. flecainide 100 MG tablet Take one tablet twice a day for heartbeat. Ibuprofen 200 MG capsule Take 1 capsule by mouth. Take 1-3 capsules at a given time. Uses for leg pain/aches. lisinopril 40 MG tablet Take 1 tablet by mouth daily every morning. Magnesium 250 MG tablet Take 1 tablet by mouth daily every morning. metoprolol succinate 100 MG tablet XL 1 tablet daily every morning. octreotide acetate (SandoSTATIN LAR [place]) 20 MG Kit injection Inject 20 mg intramuscularly Once. Every 30 days predniSONE & diphenhydrAMINE 3 x 50 MG & 1 x 50 MG Kit Take 1 kit by mouth As directed. Take 50 mg prednisone 13 & 7 hrs prior to scans. Take 50 mg benadryl & 50 mg prednisone 1 hour prior. Ok to split kit if needed 1 kit 3 Sertraline HCl 150 MG capsule 150 mg daily every morning. oxyCODONE-acetaminophen (Percocet) 7.5-325 MG tablet Take 1 tablet by mouth every 6 hours as neededfor up to 14 days. 30 tablet 0 No facility-administered medications prior to visit. Past Medical History: Diagnosis Date Arrhythmia atrial fibrillation Essential hypertension, benign History of cancer Hyperlipidemia Rheumatic fever Past Surgical History: Procedure Laterality Date OCCLUSION/EMBOLIZATION ENDOVASCULAR TUMORS/ORGAN ISCHEMIA/INFARCTION N/A 05/31/2021 Laterality: N/A; Surgeon: Humberto Rush MD; Location: [facility] INTERVENTIONAL RADIOLOGY (VIR) OCCLUSION/EMBOLIZATION ENDOVASCULAR TUMORS/ORGAN ISCHEMIA/INFARCTION N/A 03/22/2021 Laterality: N/A; Surgeon: Humberto Rush MD; Location: [facility] INTERVENTIONAL RADIOLOGY (VIR) COLECTOMY PARTIAL LAPAROSCOPIC Right 03/08/2021 Laterality: Right; Surgeon: Rodrigo López MD; Location: [facility] MAIN OR PARATHYROIDECTOMY 2014 removed 2 nodules APPENDECTOMY BREAST LUMPECTOMY Left Benign per pt report; approximately age 41 CHOLECYSTECTOMY HYSTERECTOMY KNEE SURGERY ORIF WRIST Left Social History Tobacco Use Smoking status: Never Smokeless tobacco: Never Substance Use Topics Alcohol use: Not Currently Drug use: Never Family History Problem Relation Age of Onset Coronary Artery Disease Father Cancer- Other Paternal Uncle lip cancer Uterine Cancer Paternal Grandmother Thyroid Cancer Daughter 44 total thyroidectomy- follicular & papillary Breast Cancer Cousin Family Hx: Daughter has thyroid cancer Social Hx: no environmental exposures PHYSICAL EXAMINATION: Patient is in no acute distress. Patient is alert, oriented to person, place and time. Blood pressure 145/68, pulse 77, temperature 97.9 F (36.6 C), temperature source Oral, resp. rate 16, height 1.575 m (5' 2.01), weight 73.1 kg (161 lb 1.6 oz), SpO2 96 %. HEENT: Head atraumatic, normocephalic. Gross vision intact. Eyes are nonicteric. Neck: supple, symmetrical Lungs: Clear to auscultation bilaterally. No rales or wheezing. Heart: Regular heart rate and rhythm. Abdomen: Soft, nontender, non distended, without palpable masses. Normoactive bowel sounds present. No liver or mass are palpable. Extremities: No edema Skin: Warm and dry with good skin turgor. No rash. Lymphnodes: No lymphadenopathy noted in left or right inguinal area Neurologic: No focal deficits, grossly intact. IMAGING STUDIES: CT CHEST WITHOUT CONTRAST Result Date: 09/18/2022 EXAM: CT CHEST WITHOUT CONTRAST, 09/08/2022 11:11 AM COMPARISON: PET CT February 03, 2022. CLINICALINDICATIONS: neuroendocrine tumor; RELEVANT CLINICAL HISTORY: C7A.8:Neuroendocrine cancer TECHNIQUE: CT images of the chest were obtained without intravenous contrast. FINDINGS: Lungs and Pleura: There is a nodule medially in the right lower lobe, just posterior to the right mainstem bronchus, seenon series 3 image 107 which corresponds to the nodule noted on the prior PET/CT which demonstrated mild hypermetabolic activity. This measures 7 x 7 mm study, unchanged in size. No new nodule, mass or consolidation. No pleural fluid. Tracheobronchial tree: No abnormality. Mediastinum/Zakia: No mediastinal or hilar lymphadenopathy. Axilla and Supraclavicular Regions: No axillary or supraclavicular adenopathy. The lymph nodes demonstrating mild activity on the prior PET/CT within the left axilla and right subpectoral region are normal in size. For example one of the left axillary lymph nodes noted on the PET/CT measures 5 mm short axis on series 2 image 13. The right subpectoral lymph node is seen on image 8 measuring 4 x 5 mm. There is a hypodense nodule in the right thyroid lobe which is stable. Cardiovascular: The cardiac chambers are within normal limits. The pericardium is normal. Atherosclerotic calcifications of the aorta and coronary arteries. Unenhanced images of the pulmonary arteries are grossly unremarkable. Upper Abdomen: There is a hypodense focus in the liver posteriorlywithin segment 7, series 2 image 52, which appears stable compared to the prior PET/CT. This appeared photopenic and likely represents a cyst. Other lesions within the liver which appeared hypermetabolic on the PET/CT are poorly visualized on the unenhanced CT images. Bones and Soft Tissue: Chronic compression fracture of T8 status post vertebroplasty. No acute osseous abnormality or suspicious osseous lesion. IMPRESSION: 1. The right lower lobe nodule noted on the prior PET/CT appears stable in size. No newnodule. No lymphadenopathy. ABDOMEN/PELVIS WITHOUT AND WITH CONTRAST Result Date: 09/09/2022 EXAM: MRI ABDOMEN/PELVIS WITHOUT AND WITH CONTRAST (MRI ABDOMEN AND PELVIS WITH AND WITHOUT CONTRAST), 09/08/2022 11:13 AM CLINICAL INDICATIONS: neuroendocrine tumor; C7A.8:Neuroendocrine cancer COMPARISON: PET/CT from February 03, 2022. MR abdomen and pelvis from August 13, 2021. TECHNIQUE: Multiplanar, multisequence MRI scanning was performed of the abdomen and pelvis before and after the administr ation of intravenous contrast. CONTRAST: gadoterate Meglumine (DOTAREM) 5 MMOL/10ML injection 3-60 mL; Route of Administration: Intravenous; Dose: 15 mL. FINDINGS: Abdomen: Liver: Liver is stable morphology with diffuse steatosis. Stable post-treatment changes of bland embolization. Hepatic metastases are mostly unchanged from August 13, 2021. Index lesions as follows: * Dominant lesion in segment 2/3 measures 3.0 x 2.5 cm (series 31, image 29), previously 3.0 x 2.4 cm. There is persistent rim enhancement. * Decrease in size of intermediate T2 signal intensity/T1 hypointense nonenhancing structures in segment 7. These may reflect fluid collections or treated lesions. The more superior lesion measures 1.6 x 0.9 cm (series 35, image 21), previously 2.4 x 1.5 cm. The more inferior collection measures 1.8 x 1.1 cm (series 35, image 27), previously 2.8 x 1.9 cm. * Segment 4A/5 lesion measures 1.0 x 1.0 cm (series 31, image 40), previously 0.9 x 0.9 cm. No new lesion. Portal vein is patent. Gallbladder and biliary tree: Cholecystectomy. The intrahepatic biliary tree is normal in caliber. Mild prominence of the common bile duct is likely due to postcholecystectomy ectasia. Similar appearance of a 0.6 x 0.6 cm T1 hyperintense focus in the proximal common hepatic duct. Spleen: Spleen is normal in size and signal characteristics. No focal lesions. Pancreas: Pancreas is normal in morphologyand signal characteristics. No focal lesions or ductal dilatation. Adrenals: Adrenal glands are unremarkable. Kidneys: Kidneys are normal in size and signal. There is no hydronephrosis. Retroperitoneal/Lymph Nodes/Vasculature: No abdominal/retroperitoneal adenopathy is identified. The pelvic lymph nodes with uptake on prior PET/CT are not enlarged and stable in appearance. Abdominal aorta and itsvisualized branches are patent. Mesenteric vasculature is patent. GI Tract: Right hemicolectomy. Nobowel obstruction. Few colonic and duodenal diverticula. A mesenteric and several perirectal nodules are stable (series 39, image 71 and series 71, image 46 for example); these had uptake on prior PET/CT. Pelvis: Bladder: Bladder distends normally. Pelvic Organs: Hysterectomy. No adnexal mass. Osseous Structures: Degenerative changes with levocurvature of the lumbar spine. Enhancement adjacent tothe left sacroiliac joint is stable and may be degenerative although there was mild uptake in this area on PET/CT. IMPRESSION: 1. Continued decrease in size of nonenhancing structures in hepatic segment 7. These may reflect treated metastases or postembolization fluid collections. 2. Otherwise, no change from August 2021. Stable viable hepatic metastases and perirectal and mesenteric nodules 3. Enhancement of theleft sacroiliac joint could be degenerative. Metastatic disease is also a consideration given mild uptake on PET/CT. 4. Unchanged biliary cast/hemobilia in the common hepatic duct. No biliary dilation. Imaging results have been reviewed and discussed with the patient. LABS: Latest Reference Range & Units 10/07/22 12:29 SODIUM 135 - 145 mmol/L 142 POTASSIUM 3.5 - 5.0 mmol/L 4.1 CHLORIDE 98 - 108 mmol/L 105 CARBON DIOXIDE (CO2) 21 - 31 mmol/L 26 BUN 7 - 25 mg/dL 13 Creatinine 0.50 - 1.20 mg/dL 0.86 BUN/CREA RATIO 15 eGFR, CKD-EPI, Female >=60 mL/min/1.73m2 68 CALCIUM 8.6 - 10.5 mg/dL 9.7 ANION GAP 7 - 17 mmol/L 15 OSMOLALITY (CALC) 278 - 305 mOsm/kg 299 BILIRUBIN, TOTAL <1.5 mg/dL 0.7 PROTEIN, TOTAL 6.4 - 8.3 g/dL 7.6 Albumin 3.5 - 5.0 g/dL 4.4 ALKALINE PHOSPHATASE 32 - 126 U/L 99 ALT 9 - 48 U/L 12 AST 10 - 39 U/L 18 LACTATE DEHYDROGENASE 100 - 190 U/L 143 GLUCOSE 70 - 99 mg/dL 135 (H) WBC 3.99 - 11.19 K/uL 6.67 RBC 3.91 - 5.04 M/uL 4.51 HEMOGLOBIN 11.4 - 15.2 g/dL 12.9 HEMATOCRIT 34.9 - 44.3 % 40.4 MEAN CELL VOLUME 79.6 - 97.7 fL 89.6 Mean Cell HGB 25.9 - 33.9 pg 28.6 MEAN CELL HGB CONCENTRATION 31.4 - 35.9 g/dL 31.9 RBC DISTRIBUTION 10.8 - 14.9 % 15.9 (H) PLATELET COUNT 150 - 393 K/uL 233 MEAN PLATELET VOLUME 8.5 - 12.2 fL 9.8 RBC, NUCLEATED <=0.2 /100 WBC 0.0 NEUTROPHILS % % 60.1 LYMPHOCYTES % % 26.7 MONOCYTES % % 9.7 EOSINOPHILS % % 2.2 BASOPHILS % % 1.0 IMMATURE GRANS% % 0.3 SEGS + Bands, Absolute 1.64 - 7.28 K/uL 4.00 IMMATURE GRANS ABSOLUTE <=0.08 K/uL <0.04 LYMPHS, ABSOLUTE 1.16 - 3.51 K/uL 1.78 MONOS, ABSOLUTE 0.22 - 0.87 K/uL 0.65 EOS, ABSOLUTE 0.00 - 0.42 K/uL 0.15 Baso Abs# Auto 0.00 - 0.15 K/uL 0.07 DIFF STATUS Electronic Differential (H): Data is abnormally high Lab results have been reviewed and discussed with the patient. IMPRESSION & PLAN: Disease Assessment Dx: WD NET Ki-67 6% of primary likely ileum (FDG PET mesenteric uptake SUV 4.2) 10/2020: Sandostatin started 03/08/2021: laparoscopic right hemicolectomy: A. Right colon and terminal ileum, laparoscopic right hemicolectomy: Well-differentiated neuroendocrine tumor, grade 1,involving the terminal ileum, see synoptic report Surgical margins are negative for tumor Tumor is panmural and involves the serosa Extensive perineural invasion 20 benign lymph nodes (0/20) Immunohistochemical stains for chromogranin and synaptophysin are positive. Manual quantitative immunohistochemistry for Ki-67 is 0%. Zero mitoses were seen in 2 mm2. 03/22/21- left hepatic TAE by Dr. Rush. 05/31/2021: Right hepatic. Tolerated well. 06/16/2021: Venous doppler: +acute DVT of right tibioperoneal trunk, peroneal, soleus veins Assessment: Tumor burden: Liver, terminal ileum, LN: medial right lower lobe pulmonary nodule with focal tracer uptake, suspicious for pulmonary metastasis. Multiple right internal mammary, retroperitoneal, mesenteric and pelvic lymph nodes with significant tracer uptake Symptom [place] at presentation: Diarrhea which improved on sandostatin. Pace of disease: Based on scans between August 2020 and Dec 2020: Liver lesions are stable. Plan: Please see Dr. david's note for full assessment and plan. Treatment: Continue SSA locally q 28 days - Currently on Sandostatin to 30 mg, doing well. Uses imodium prn. *HTN - metoprolol, amlodipine, & lisinopril - did not take any this morning, 161/71 in clinic today (130s/60s at home) - follows with cardiology The patient had many questions all that were answered to her satisfaction. She will contact the clinic with any questions or concerns. She understands and agrees to the plan. I have seen, discussed, and formulated the above treatment plan with Dr. Erwin David who agrees with the plan. TATI Main, GUSTAVO Physician Pacu Nurse Neuroendocrine/Thyroid Tumor Program [facility] and [facility] Sant[facility] * Erwin David MD - 10/07/2022 1:00 PM EDT Images from the original note were not included. Addendum by Dr. David: I have seen and examined the patient with Britany Jane PA-C and agree with the findings in her note. Britany Jane's note is edited by me. I have reviewed and discussed lab/imaging results with the patient. The plan was made and discussed by me with the patient and team as outlined in Britany Jane's note. REFERRING MD: Referral from: Dr. Matt Nunez Scheduled with Dr. David on 11/25 DX: metastatic NEC Ki67%: 5% Pathology: [facility] 09/2020 HISTORY OF PRESENT ILLNESS: Mary Jenkins is a 81 y.o. female who is diagnosed with neuroendocrine tumor. She comes here today for evaluation regarding diagnosis. She was in usual state of health until: 2015: Resection of parathyroid adenomas August 2020: Acute onset of abdominal pain and diarrhea. She was treated for diverticulitis. Diarrheaimproved, but continued with RUQ pain. September 25, 2020: Liver core biopsy: [facility] read: A. Liver mass, CT-guided core biopsy: Metastatic well-differentiated neuroendocrine tumor, G2 Immunohistochemical stain performed at outside hospital TTF 1 negative S100 negative CK7 negative CK20 negative Napsin a negative CD117 negative P 40 negative Pancytokeratin positive NSE positive CD56 positive Synaptophysin positive Chromogranin positive Henry 2 positive CDX2 positive CK8 positive Ki-67: 6% Comment: The immunohistochemical profile suggests a gastrointestinal primary. Clinical correlation is recommended. 10/13/2020: FDG PET: Increased FDG distrubution noted in the region of the proximal ascending colong. Liver does not uptake FDG. 10/2020: Sandostatin q 28 days 12/29/2020: MRI A/P: IMPRESSION: 1. Probable mass involving the distal/terminal ileum which may represent the primary site of the known neuroendocrine tumor. No upstream bowel distention. No mesenteric masses. 2. Multiple lesions within the liver consistent with metastatic disease. Dominant lesion in posterior left lobe. 3. No adenopathy in the abdomen or pelvis. 4. Status post hysterectomy and cholecystectomy. 03/08/2021: laparoscopic right colectomy: A. Right colon and terminal ileum, laparoscopic right hemicolectomy: Well-differentiated neuroendocrine tumor, grade 1,involving the terminal ileum, see synoptic report Surgical margins are negative for tumor Tumor is panmural and involves the serosa Extensive perineural invasion 20 benign lymph nodes (0/20) Immunohistochemical stains for chromogranin and synaptophysin are positive. Manual quantitative immunohistochemistry for Ki-67 is 0%. Zero mitoses were seen in 2 mm2. 03/22/21- left hepatic lobe TAE by Dr. Rush 05/31/2021: Right hepatic lobe. 06/16/2021: Venous doppler: +acute DVT of right tibioperoneal trunk, peroneal, soleus veins. 06/19/2021 CT C/A/P multiple lesions of decreased attenuation within the liver worrisome for metastatic disease including a 7 cm lesion within the posterior segment the right lobe of the liver. There is diffuse atherosclerotic calcification of the abdominal aorta, without a demonstrated aneurysm. 08/13/2021 MRI A/P IMPRESSION: 1. Status post right hemicolectomy involving the previously described mass within the distal/terminal ileum, compatible with patient's known history of neuroendocrine tumor. No evidence of recurrence within the resection bed. No discrete mesenteric masses. 2. Status post interval transarterial bland embolization of lesions in segment 2/3 which has decreased in size (now measuring 3.0 x 2.4 cm, previously 4.6 x 4.1 cm.) however demonstrates persistent peripheral arterial phase enhancement, suggestive of viable disease. 3. Status post interval transarterial bland embolization lesion in segment 7. No definite abnormal enhancement is identified. Interval development of likely posttreatment confluent necrotic collections in this region. 4. Additional previously indexed arterially enhancing lesions in segment 4A/5 are not significantly changed. 5. Focus of intrinsic T1 hyperintensity within the proximal common hepatic is suggestive of posttreatment hemobilia. No significant proximal intrahepatic biliary ductal dilation. Mild persistent prominence of the common bile duct could relate to postcholecystectomy ectasia. 09/08/2022 MRI A/P IMPRESSION: 1. Continued decrease in size of nonenhancing structures in hepatic segment 7. These may reflect treated metastases or postembolization fluid collections. 2. Otherwise, no change from August 2021. Stable viable hepatic metastases and perirectal and mesenteric nodules 3. Enhancement of the left sacroiliac joint could be degenerative. Metastatic disease is also a consideration given mild uptake on PET/CT. 4. Unchanged biliary cast/hemobilia in the common hepatic duct. No biliary dilation. 09/08/2022 CT chest with the right lower lobe nodule noted on the prior PET/CT appears stable in size. No new nodule. No lymphadenopathy. IMPRESSION & PLAN: Disease Assessment Dx: WD NET Ki-67 6% of primary likely ileum (FDG PET mesenteric uptake SUV 4.2) 10/2020: Sandostatin started 03/08/2021: laparoscopic right hemicolectomy: A. Right colon and terminal ileum, laparoscopic right hemicolectomy: Well-differentiated neuroendocrine tumor, grade 1,involving the terminal ileum, see synoptic report Surgical margins are negative for tumor Tumor is panmural and involves the serosa Extensive perineural invasion 20 benign lymph nodes (0/20) Immunohistochemical stains for chromogranin and synaptophysin are positive. Manual quantitative immunohistochemistry for Ki-67 is 0%. Zero mitoses were seen in 2 mm2. 03/22/21- left hepatic TAE by Dr. Rush. 05/31/2021: Right hepatic. Tolerated well. 06/16/2021: Venous doppler: +acute DVT of right tibioperoneal trunk, peroneal, soleus veins 06/19/2021 CT C/A/P multiple lesions of decreased attenuation within the liver worrisome for metastatic disease including a 7 cm lesion within the posterior segment the right lobe of the liver. There is diffuse atherosclerotic calcification of the abdominal aorta, without a demonstrated aneurysm. 08/13/2021 MRI A/P IMPRESSION: 1. Status post right hemicolectomy involving the previously described mass within the distal/terminal ileum, compatible with patient's known history of neuroendocrine tumor. No evidence of recurrence within the resection bed. No discrete mesenteric masses. 2. Status post interval transarterial bland embolization of lesions in segment 2/3 which has decreased in size (now measuring 3.0 x 2.4 cm, previously 4.6 x 4.1 cm.) however demonstrates persistent peripheral arterial phase enhancement, suggestive of viable disease. 3. Status post interval transarterial bland embolization lesion in segment 7. No definite abnormal enhancement is identified. Interval development of likely posttreatment confluent necrotic collections in this region. 5. Focus of intrinsic T1 hyperintensity within the proximal common hepatic is suggestive of posttreatment hemobilia. No significant proximal intrahepatic biliary ductal dilation. Mild persistent prominence of the common bile duct could relate to postcholecystectomy ectasia. 02/03/2022 Ga PET with mixed response since the prior exam with interval improvement of multifocal hepatic metastatic disease with residual malignancy remaining, however, increased prominence within a right internal mammary lymph node. Worsening of anterior pelvic wall activity and improvement of left pelvic sidewall activity, with new activity in a left inguinal lymph node. Similar perirectal activity. Milder activity within a nodule at the right major fissure which despite being below background hepatic activity is still concerning for malignancy and stable. Nonspecific uptake within a right subpectoral lymph node and multiple left axillary lymph nodes. Interval increase in activity within the left acetabulum as well as the left hemisacrum. Assessment: Tumor burden: Liver, terminal ileum, LN: medial right lower lobe pulmonary nodule with focal tracer uptake, suspicious for pulmonary metastasis. Multiple right internal mammary, retroperitoneal, mesenteric and pelvic lymph nodes with significant tracer uptake Symptom [place] at presentation: Diarrhea which improved on sandostatin. Abdominal pain Pace of disease: Based on scans between August 2020 and Dec 2020: Liver lesions are stable. Plan: - Pt is clinically doing well post TAE and hemicolectomy. - I reviewed the last scans from August which showed stable results. - Continue Sandostatin to 30 mg, doing well. - Labs and chemistry reviewed. Chromogranin level is stable. - Scans q4-6 months - Options at PD include PRRT, Afinitor, cabozantinibl, or repeat TAE Return to clinic: 6 months with labs and scans one week prior Labs: with scans Scans: MRI abd & CT chest Treatment: Continue SSA locally q 28 days Other diagnosis and plan: #DVT - started on 2.5 mg eliquis BID. Experienced RLE edema and pain which has now subsided. #HTN - metoprolol, amlodipine, & lisinopril - did not take any this morning, 161/71 in clinic today (130s/60s at home) - follows with cardiology No orders of the defined types were placed in this encounter. We encouraged her to contact the clinic with any questions or concerns. Ms. Jenkins understands and agrees to the plan. Documented by Sami Graham, for Dr. David on 10/07/2022 at 10:04 AM All medical record entries made by the Santos were at my direction and personally dictated by me, Erwin David MD. I have reviewed and edited the chart and agree that the record accurately reflects my personal performance of the history, physical exam, assessment and plan. I have also personally directed, reviewed, and agree with the discharge instructions. Erwin David M.D. Neuroendocrine/Thyroid Tumor Program [facility] documented in this encounterOSHol[facility]08-[facility]23 Instructions* Patient Instructions* Clint Mondragon RN - 10/07/2022 1:00 PM EDT Return to clinic: [address] David With provider: Labs/scans one week prior Labs: to be done the same day as scans (MRI Abdomen) Scans: US Thyroid next available, MRI abdomen Referral: Endocrinology- to be seen AFTER US Thyroid completed Thank you for choosing [facility] for your cancer care. 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 Please allow up to 24-48 hours for a response via my chart. Should you have questions or concerns, please call [phone] documented in this encounterPrem[facility] Man [facility] July 16, 2022 2:10pm Note Date/Time July 16, 2022 10:19 am [facility] Medical Records Department [address] [place] [address] Emergency Department Summary 07/16/22 MR#: [id number] Acct: [id number] Name: MARY JENKINS Rep #:[id number] : 1940 81 From: Alea Reilly PCP: Dr. 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 Patient states about a week ago she was walking when her boot got stuck on the carpet and she fell forward. She was able to catch herself with outstretched hands on the couch but her back twisted and bent inwards. Since then she has had severe painin her thoracic back, her right ribs and her left shoulder. She states she did not actually fall to the ground or hit her head. There was no loss of conscious. Patient had family in town and they were able to help her up and that she took a shower. Patient's been alternating ibuprofen and Tylenol for pain. She states she does not want anything stronger for pain as she has been on oxycodone in the past and does not like it. Patient states she actually camein because her family Pestering her to be evaluated in case she does have a fracture. No other complaints at this time. Patient denies any difficulty breathing except sometimes she becomes short of breath because the pain is so severe. It is worse with movement and when she tries to roll out of bed in the morning. Denies any difficulty with urination or with bowel movements. Denies any numbness or weakness to her legs. [facility] Medical History Abdominal pain, RLQ Achilles rupture, left Arthritis Asthma Bone metastases Colon wall thickening Degenerative arthritis of left foot Depression Diarrhea Easy bruising Essential hypertension Fall Fatigue Heartburn History of diverticulitis History of rheumatic fever History of stress test Hyperlipidemia Left arm pain Lung metastases Lymph nodes enlarged Neuroendocrine tumor Non-smoker Parathyroid adenoma Parathyroid disease Postoperative atrial fibrillation (02/2018) 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 Strain of foot, left SVT (supraventricular tachycardia) Wears dentures Home Medications sertraline 100 mg tablet 150 mg PO DAILY mood 01/31/15 [History Last Taken 09/25/20 07:00] cholecalciferol (vitamin D3) 25 mcg (1,000 unit) tablet 2,000 unit PO DAILY 07/28/15 [History Last Taken 09/24/20] pyridoxine (vitamin B6) 50 mg tablet 50 mg PO DAILY supplement 05/15/20 [History Last Taken 09/24/20] mecobalamin (vitamin B12) 1,000 mcg chewable tablet (B12 Active) 1,000 mcg PO DAILY 09/04/20 [History Last Taken Unknown] atorvastatin 20 mg tablet 10 mg PO DAILY 04/01/21 [History Last Taken Unknown] coenzyme Q10 100 mg capsule (Co Q-10) 100 mg PO DAILY 04/01/21 [History Last Taken Unknown] glucosamine-chondroitin 250 mg-200 mg tablet (Osteo Bi-Flex) 2 tab PO DAILY 04/01/21 [History Last Taken Unknown] magnesium 250 mg tablet 250 mg PO DAILY 04/01/21 [History Last Taken Unknown] octreotide,microspheres 20 mg intramuscular susp, extended release (Sandostatin LAR Depot) 20 mg IM Q4W 04/01/21 [History Last Taken Unknown] turmeric root extract 500 mg capsule 500 mg PO DAILY 04/01/21 [History Last Taken Unknown] elderberry fruit 200 mg capsule 400 mg PO DAILY 05/21/21 [History Last Taken Unknown] potassium chloride 20 mEq tablet,extended release(part/cryst) 20 meq PO DAILY 05/21/21 [History Last Taken Unknown] risedronate 35 mg tablet 35 mg PO QWEEK 05/21/21 [History Last Taken Unknown] amlodipine 5 mg tablet 5 mg PO DAILY #90 tabs 06/21/21 [Rx Last Taken Unknown] flecainide 100 mg tablet 100 mg PO BID heart beat #180 tabs 11/05/21 [Rx Last Taken Unknown] apixaban 5 mg tablet (Eliquis) 5 mg PO BID #180 tabs 12/30/21 [Rx Last Taken Unknown] lisinopril 40 mg tablet 40 mg PO DAILY #90 tabs 06/15/22 [Rx Last Taken Unknown] metoprolol succinate 100 mg tablet,extended release 24 hr 100 mg PO DAILY #90 tabs 06/23/22 [Rx Last Taken Unknown] oxycodone 5 mg tablet 5 mg PO Q6H PRN pain 3 days #12 tabs 07/16/22 [Rx Last Taken Unknown] Allergy/AdvReac Type Severity Reaction Status Date / Time Iodinated Contrast Media Allergy Severe Anaphylaxis Verified 06/30/22 11:36 [Iodinated Contrast Media - IV Dye] Penicillins [PCN] AdvReac Intermediate Hives Verified 06/30/22 11:36 Family History Father CAD (coronary artery disease) Heart disease Hypertension Mother Hypertension Brother Hypertension Sister Hypertension Daughter Thyroid cancer Surgical History History of appendectomy History of breast lump removal History of cataract surgery History of colonoscopy (02/2018) History of hysterectomy History of left heart catheterization (06/25/18) History of parathyroidectomy (~2013) History of surgery on left wrist Hx of arthroscopic knee surgery Hx of cholecystectomy Hx of colonoscopy Social History Smoking Status: Never smoker second hand exposure: No alcohol intake: never substance use type: does not use caffeine: Yes (1) what type of physical activity do you participate in: none frequency: does not exercise elizabeth/gnosticist: Presbyterian seatbelt use: always do you feel safe at home: Yes ROS ROS ED Constitutional Constitutional ED: Denies chills or fever(s) ENT ENT ED: Denies sore throat Cardiovascular Cardiovascular: Denies chest pain Respiratory/Chest Respiratory/Chest: Denies cough or dyspnea Gastrointestinal Gastrointestinal: Denies abdominal pain, nausea or vomiting Musculoskeletal Musculoskeletal: Reports arthralgias, back pain and neck pain Integumentary Denies rash Neurologic Neurologic: Denies headache(s), paresthesias or weakness Psychiatric Psychiatric: Denies anxiety Hematologic/Lymphatic Hematologic/Lymphatic: Reports easy bleeding and easy bruising EXAM Physical Exam Const Vital Signs: 07/16/22 09:40 Temperature 96.9 F L Temperature Source Temporal Pulse Rate 80 Respiratory Rate 18 Blood Pressure 172/66 H Blood Pressure Mean 101 Pulse Ox 99 Oxygen Delivery Method Room Air Positive well nourished and well developed General Appearance ED: well developed and NAD HEENT atraumatic Eyes PERRL and EOMs intact bilaterally Neck full ROM General: Negative for tenderness Chest Wall inspection of chest normal and palpation of chest normal Chest Narrative: No chest wall crepitus. No flail chest sign. Resp normal respiratory effort and clear to auscultation bilaterally Cardio regular rhythm and no murmurs GI normal to inspection, nondistended, normoactive bowel sounds and non-tender Back/Spine Back/Spine Narrative: Normal range of motion. Patient has tenderness of the thoracic midline spine around approximately T8-T12. No pinpoint bony tenderness. She has diffuse posterior rib tenderness of the right ribs approximately T8-T10. Extremity normal to inspection and full ROM Extremity Narrative: Patient has pain with range of motion of the left shoulder but no weakness. No acute bony tenderness of the clavicles, humerus, pelvis or other major joints. Left lower extremity is immobilized in a boot. Neuro oriented x3, moves all extremities, no focal motor deficits and no sensory deficits noted Psych mental status grossly normal and thought process normal Skin no rashes or lesions noted and no wounds MDM MDM MDM Narrative Medical decision making narrative: Patient is evaluated for continued back pain and left shoulder pain after fall. She does have a history of bony metastasis and differential that includes acute traumatic fracture as well as pathologic fracture. We will obtain a CT of the chest and thoracic spine for more complete evaluation given her history of metastatic cancer. In addition we will obtain an x-ray of the left shoulder. Patient does not want anything for pain at this time. I did discuss with patient that as she is on Eliquis she should not be taking NSAIDs such as Advil for pain because of the increased risk of bleeding. Patient states she was not aware of that. Since imaging does show a moderate recent anterior wedge compression fracture atthe upper T11 vertebral body with 40% loss of anterior vertebral body height. This is new compared to findings on 06/19/2021. She has mild right posterior pleural fluid no other acute process. No other acute injuries appreciated. X-ray of the shoulder interpreted myself as well as radiology does not show any acute fracture or dislocation. Patient's case is discussed with Dr. Melton, spine on-call. He will have the patient call his office on Monday for follow-up. Discussed with patient that she may be candidate for kyphoplasty and should follow-up for further pain control. Patient is amenable to a course of oxycodone for pain control at least over the weekend. Patient is counseled on the risk of opioids but she has tolerated the past. Counseled on opioid-induced constipation and the need to take a stool softener or MiraLAX daily to help prevent this. Patient did drive her self hereso she is not given anything sedating prior to discharge. Radiography Diagnostic Testing: Clinical Impression(s) from Imaging Studies Chest CT 07/16/22 10:11 IMPRESSION: 1. Moderate recent anterior wedge compression fracture of the upper T11 vertebral body with 40% loss of the anterior vertebral body height. This is a new finding when compared to 06/19/2021. 2. Mild right posterior pleural fluid and minimal subsegmental atelectases in the right posterior lung base. 3. The metastatic mass in the right posterior hepatic lobe is obvious only on the prior CT of the abdomen and pelvis and CTA chest of 06/19/2021. Electronically Signed: Benton Vergara MD at 11:58 EDT , Shoulder X-Ray 07/16/22 10:11 IMPRESSION: Osteopenia with mild arthrosis of the glenohumeral and acromioclavicular joints. No other abnormality. Electronically Signed: Oswaldo Hernandez MD at 11:10 EDT , Thoracic Spine CT 07/16/22 10:11 IMPRESSION: 1. Moderate increase in anterior wedge compression fracture of the upper T11 vertebral body with 40% loss of the anterior vertebral body height. This is feasible for kyphoplasty if patient has debilitating back pain at this level. 2. No malalignment and no other suspicious acute abnormality. 3. Mild right posterior pleural fluid. COMMENT: The large metastatic mass in the right posterior hepatic lobe is not obvious without IV contrast. Please see CT report of 06/19/2021. Electronically Signed: Benton Vergara MD at 12:03 EDT , Discharge Plan Triage Chief Complaint: Fall ED Provider: Alea Man Dx/Rx/DC Orders Clinical Impression: Closed wedge compression fracture of T11 vertebra, Back pain Instructions: ED Fracture, Vertebral Compression Prescriptions: New oxycodone 5 mg tablet 5 mg PO Q6H PRN (Reason: pain) 3 Days Qty: 12 0RF No Action pyridoxine (vitamin B6) 50 mg tablet 50 mg PO DAILY atorvastatin 20 mg tablet 10 mg PO DAILY Label Comments: Take 1/2 tablet by mouth daily magnesium 250 mg tablet 250 mg PO DAILY coenzyme Q10 [Co Q-10] 100 mg capsule 100 mg PO DAILY turmeric root extract 500 mg capsule 500 mg PO DAILY glucosamine-chondroitin [Osteo Bi-Flex] 250-200 mg tablet 2 tab PO DAILY Sandostatin LAR Depot 20 mg suspension,extended rel recon 20 mg IM Q4W potassium chloride 20 mEq tablet,ER particles/crystals 20 meq PO DAILY Label Comments: TAKE 1 TABLET DAILY risedronate 35 mg tablet 35 mg PO QWEEK Label Comments: TAKE 1 TABLET devery week elderberry fruit 200 mg capsule 400 mg PO DAILY sertraline 100 MG tablet 150 mg PO DAILY Label Comments: depression cholecalciferol (vitamin D3) 1,000 UNIT tablet 2,000 unit PO DAILY Label Comments: supplement mecobalamin (vitamin B12) [B12 Active] 1,000 mcg Tablet,Chewable 1,000 mcg PO DAILY amlodipine 5 mg tablet 5 mg PO DAILY Qty: 90 3RF flecainide 100 mg tablet 100 mg PO BID Qty: 180 3RF Eliquis 5 mg tablet 5 mg PO BID Qty: 180 4RF Hold Instructions: surgery lisinopril 40 mg tablet 40 mg PO DAILY Qty: 90 3RF metoprolol succinate 100 mg tablet extended release 24 hr 100 mg PO DAILY Qty: 90 3RF Primary Care Provider: Blanac Cruz Referrals: Blanca Cruz MD [Primary Care Provider] - Edgar Melton DO [Med Staff - Active Staff] - (Call Monday for close follow up) Activity Restrictions/Additional Instructions: You may also take Tylenol in addition to the oxycodone as needed for pain. Avoid anti-inflammatory such as ibuprofen or Aleve as you are on Eliquis. If you felt that the Lidoderm patch was helpful you can get them [id number] (4% extra strength Salonpas). If your pain becomes too bad or you develop progressive or worsening symptoms specially any new numbness or weakness of the extremities please return to the emergency room. As we discussed please take a stool softener or MiraLAX while taking pain medicines you do not suffer from opioid-induced constipation. Disposition Disposition: Home, Self Care What to do if you have Problems For any increased pain, shortness of breath, bleeding, nausea or vomiting, chestpain, or any unexpected problems, contact your Primary Care Provider. Call [facility] ([phone]) or report to the closest Emergency Room. Call 911 if necessary. 07/16/22 1410 <Electronically signed by Alea Man DO> Cosigner Signature (if applicable): CC: Dr. Blanca Cruz MD; Dr. Edgar Melton DO ~ Signed [facility] Work Phone: 1(174) 541-478201-06-2023 History of Present illness Narrative* Erwin David MD - 02/18/2022 9:30 AM EST Images from the original note were not included. Addendum by Dr. David: I have seen and examined the patient with Britany Jane PA-C and agree with the findings in her note. Britany Jane's note is edited by me. I have reviewed and discussed lab/imaging results with the patient. The plan was made and discussed by me with the patient and team as outlined in Britany Jane's note. Chief Complaint Patient presents with Follow-up Neuroendocrine carcinoma metastatic to liver Imaging Results Review recent scans IMPRESSION & PLAN: Disease Assessment Dx: WD NET Ki-67 6% of primary likely ileum (FDG PET mesenteric uptake SUV 4.2) 10/2020: Sandostatin started 03/08/2021: laparoscopic right hemicolectomy: A. Right colon and terminal ileum, laparoscopic right hemicolectomy: Well-differentiated neuroendocrine tumor, grade 1,involving the terminal ileum, see synoptic report Surgical margins are negative for tumor Tumor is panmural and involves the serosa Extensive perineural invasion 20 benign lymph nodes (0/20) Immunohistochemical stains for chromogranin and synaptophysin are positive. Manual quantitative immunohistochemistry for Ki-67 is 0%. Zero mitoses were seen in 2 mm2. 03/22/21- left hepatic TAE by Dr. Rush. 05/31/2021: Right hepatic. Tolerated well. 06/16/2021: Venous doppler: +acute DVT of right tibioperoneal trunk, peroneal, soleus veins 06/19/2021 CT C/A/P multiple lesions of decreased attenuation within the liver worrisome for metastatic disease including a 7 cm lesion within the posterior segment the right lobe of the liver. There is diffuse atherosclerotic calcification of the abdominal aorta, without a demonstrated aneurysm. 08/13/2021 MRI A/P IMPRESSION: 1. Status post right hemicolectomy involving the previously described mass within the distal/terminal ileum, compatible with patient's known history of neuroendocrine tumor. No evidence of recurrence within the resection bed. No discrete mesenteric masses. 2. Status post interval transarterial bland embolization of lesions in segment 2/3 which has decreased in size (now measuring 3.0 x 2.4 cm, previously 4.6 x 4.1 cm.) however demonstrates persistent peripheral arterial phase enhancement, suggestive of viable disease. 3. Status post interval transarterial bland embolization lesion in segment 7. No definite abnormal enhancement is identified. Interval development of likely posttreatment confluent necrotic collections in this region. 5. Focus of intrinsic T1 hyperintensity within the proximal common hepatic is suggestive of posttreatment hemobilia. No significant proximal intrahepatic biliary ductal dilation. Mild persistent prominence of the common bile duct could relate to postcholecystectomy ectasia. 02/03/2022 Ga PET with mixed response since the prior exam with interval improvement of multifocal hepatic metastatic disease with residual malignancy remaining, however, increased prominence within a right internal mammary lymph node. Worsening of anterior pelvic wall activity and improvement of left pelvic sidewall activity, with new activity in a left inguinal lymph node. Similar perirectal activity. Milder activity within a nodule at the right major fissure which despite being below background hepatic activity is still concerning for malignancy and stable. Nonspecific uptake within a right subpectoral lymph node and multiple left axillary lymph nodes. Interval increase in activity within the left acetabulum as well as the left hemisacrum. Assessment: Tumor burden: Liver, terminal ileum, LN: medial right lower lobe pulmonary nodule with focal tracer uptake, suspicious for pulmonary metastasis. Multiple right internal mammary, retroperitoneal, mesenteric and pelvic lymph nodes with significant tracer uptake Symptom Wilmore at presentation: Diarrhea which improved on sandostatin. Abdominal pain Pace of disease: Based on scans between August 2020 and Dec 2020: Liver lesions are stable. Plan: - Patient now s/p R hemicolectomy and staged TAE. - She had two hospital visits showing +DVT. Was started on 2.5 mg eliquis BID. Experienced RLE edema and pain which has now subsided. - Options at PD include PRRT, Afinitor, CABINET trial, or repeat TAE - Currently on Sandostatin to 30 mg which wears off in the 4th week. We can consider [id number] instead of [id number]. Pt expressed lack of interest currently. Other options include a week of subQ kristal inthe 4th week to tide over this period. Next injection 03/12/22. - Recommended using imodium for diarrhea more frequently which pt was not doing, educated that it may be used up to 8 tablets/day - Reviewed Ga PET results, there is interval improvement in hepatic disease. Non-specific anterior pelvic wall activity is not concerning at this time. - In order to monitor the faint shadows seen in the chest, we will order a CT Chest to be completedin 6 months. - Labs reviewed and stable to improved with improvement in LFTs. - MRI A/P + CT Chest ordered, to be completed prior to next appointment. - RTC in 6 months with scans prior *HTN - currently on metoprolol, amlodipine, & lisinopril. Monitors blood pressure at home. Follows with cardiology. - 152/73 in clinic today. Orders Placed This Encounter MRI ABDOMEN/PELVIS WITHOUT AND WITH CONTRAST CT CHEST WITHOUT CONTRAST CBC, EDIF, PLATELET COMPREHENSIVE METABOLIC PANEL LACTATE DEHYDROGENASE CHROMOGRANIN A GASTRIN - NON-STIMULATED No follow-ups on file. Documented by Yaritza Graham, for Dr. David on 02/18/2022 at 10:14 AM All medical record entries made by the Santos were at my direction and personally dictated by me, Erwin David MD. I have reviewed and edited the chart and agree that the record accurately reflects my personal performance of the history, physical exam, assessment and plan. I have also personally directed, reviewed, and agree with the discharge instructions. Erwin David M.D. Neuroendocrine/Thyroid Tumor Program [facility] Preet Coburn [facility] and [facility] * Britany Jane PA-C - 02/18/2022 9:30 AM EST Images from the original note were not included. REFERRING MD: Referral from: Dr. Matt Nunez Scheduled with Dr. David on 11/25 DX: metastatic NEC Ki67%: 5% Pathology: [facility] 09/[facility] HISTORY OF PRESENT ILLNESS: Mary Jenkins is a 81 y.o. female who is diagnosed with neuroendocrine tumor. She comes here today for evaluation regarding diagnosis. She was in usual state of health until: 2015: Resection of parathyroid adenomas August 2020: Acute onset of abdominal pain and diarrhea. She was treated for diverticulitis. Diarrheaimproved, but continued with RUQ pain. September 25, 2020: Liver core biopsy: [facility] read: A. Liver mass, CT-guided core biopsy: Metastatic well-differentiated neuroendocrine tumor, G2 Immunohistochemical stain performed at outside hospital TTF 1 negative S100 negative CK7 negative CK20 negative Napsin a negative CD117 negative P 40 negative Pancytokeratin positive NSE positive CD56 positive Synaptophysin positive Chromogranin positive Henry 2 positive CDX2 positive CK8 positive Ki-67: 6% Comment: The immunohistochemical profile suggests a gastrointestinal primary. Clinical correlation is recommended. 10/13/2020: FDG PET: Increased FDG distrubution noted in the region of the proximal ascending colong. Liver does not uptake FDG. 10/2020: Sandostatin q 28 days 12/29/2020: MRI A/P: IMPRESSION: 1. Probable mass involving the distal/terminal ileum which may represent the primary site of the known neuroendocrine tumor. No upstream bowel distention. No mesenteric masses. 2. Multiple lesions within the liver consistent with metastatic disease. Dominant lesion in posterior left lobe. 3. No adenopathy in the abdomen or pelvis. 4. Status post hysterectomy and cholecystectomy. 03/08/2021: laparoscopic right colectomy: A. Right colon and terminal ileum, laparoscopic right hemicolectomy: Well-differentiated neuroendocrine tumor, grade 1,involving the terminal ileum, see synoptic report Surgical margins are negative for tumor Tumor is panmural and involves the serosa Extensive perineural invasion 20 benign lymph nodes (0/20) Immunohistochemical stains for chromogranin and synaptophysin are positive. Manual quantitative immunohistochemistry for Ki-67 is 0%. Zero mitoses were seen in 2 mm2. 03/22/21- left hepatic lobe TAE by Dr. Rush 05/31/2021: Right hepatic lobe. 06/16/2021: Venous doppler: +acute DVT of right tibioperoneal trunk, peroneal, soleus veins. 06/19/2021 CT C/A/P multiple lesions of decreased attenuation within the liver worrisome for metastatic disease including a 7 cm lesion within the posterior segment the right lobe of the liver. There is diffuse atherosclerotic calcification of the abdominal aorta, without a demonstrated aneurysm. 08/13/2021 MRI A/P IMPRESSION: 1. Status post right hemicolectomy involving the previously described mass within the distal/terminal ileum, compatible with patient's known history of neuroendocrine tumor. No evidence of recurrence within the resection bed. No discrete mesenteric masses. 2. Status post interval transarterial bland embolization of lesions in segment 2/3 which has decreased in size (now measuring 3.0 x 2.4 cm, previously 4.6 x 4.1 cm.) however demonstrates persistent peripheral arterial phase enhancement, suggestive of viable disease. 3. Status post interval transarterial bland embolization lesion in segment 7. No definite abnormal enhancement is identified. Interval development of likely posttreatment confluent necrotic collections in this region. 4. Additional previously indexed arterially enhancing lesions in segment 4A/5 are not significantly changed. 5. Focus of intrinsic T1 hyperintensity within the proximal common hepatic is suggestive of posttreatment hemobilia. No significant proximal intrahepatic biliary ductal dilation. Mild persistent prominence of the common bile duct could relate to postcholecystectomy ectasia. Chief Complaint Patient presents with Follow-up Neuroendocrine carcinoma metastatic to liver Imaging Results Review recent scans Patient doing well this visit. Diarrhea is based off of certain foods. ECOG PS: 1 REVIEW OF SYSTEMS: A review of systems was performed with the patient at today's patient and is negative except for those items mentioned in the interval history and those items mentioned below as well as in the nursing documentation review of systems. ONC AMB Nursing Assessment 02/18/2022 Performance Status Grade 1 Fatigue Grade 1 Nausea Grade 0 Vomiting Grade 0 Anorexia Grade 0 Constipation Grade 0 Peripheral Motor Neuropathy Grade 0 Depression Grade 0 Mucositis (oral, pharyngeal) Grade 0 Dyspnea Grade 0 Pain Grade 0 Fever Grade 0 Localized Edema Grade 0 Rash Maculo-Papular Grade 0 All other systems are negative. Allergies Allergen Reactions Contrast Dye [Ivp Dye, Iodine Containing] Anaphylaxis Takes prednisone & benadryl prior to CT scans as pre-meds Penicillin G Other reaction(s): Shortness of breath, edema Outpatient Medications Prior to Visit Medication Sig Dispense Refill acetaminophen 325 MG tablet Take 2 tablets by mouth every 6 hours. 0 amLODIPine 5 MG tablet Take 1 tablet by mouth daily every morning. atorvastatin 10 MG tablet Take 1 tablet by mouth daily every morning. cholecalciferol 50 MCG (1999) capsule Take 1 capsule by mouth daily. Eliquis 2.5 MG tablet Take 1 tablet by mouth every 12 hours. flecainide 100 MG tablet Take one tablet twice a day for heartbeat. Ibuprofen 200 MG capsule Take 1 capsule by mouth. Take 1-3 capsules at a given time. Uses for leg pain/aches. lisinopril 40 MG tablet Take 1 tablet by mouth daily every morning. Magnesium 250 MG tablet Take 1 tablet by mouth daily every morning. metoprolol succinate 100 MG tablet XL 1 tablet daily every morning. octreotide acetate (SandoSTATIN LAR [place]) 20 MG Kit injection Inject 20 mg intramuscularly Once. Every 30 days predniSONE & diphenhydrAMINE 3 x 50 MG & 1 x 50 MG Kit Take 1 kit by mouth As directed. Take 50 mg prednisone 13 & 7 hrs prior to scans. Take 50 mg benadryl & 50 mg prednisone 1 hour prior. Ok to split kit if needed 1 kit 3 Sertraline HCl 150 MG capsule 150 mg daily every morning. oxyCODONE-acetaminophen (Percocet) 7.5-325 MG tablet Take 1 tablet by mouth every 6 hours as neededfor up to 14 days. 30 tablet 0 No facility-administered medications prior to visit. Past Medical History: Diagnosis Date Arrhythmia atrial fibrillation Essential hypertension, benign History of cancer Hyperlipidemia Rheumatic fever Past Surgical History: Procedure Laterality Date OCCLUSION/EMBOLIZATION ENDOVASCULAR TUMORS/ORGAN ISCHEMIA/INFARCTION N/A 05/31/2021 Laterality: N/A; Surgeon: Humberto Rush MD; Location: [facility] INTERVENTIONAL RADIOLOGY (VIR) OCCLUSION/EMBOLIZATION ENDOVASCULAR TUMORS/ORGAN ISCHEMIA/INFARCTION N/A 03/22/2021 Laterality: N/A; Surgeon: Humberto Rush MD; Location: [facility] INTERVENTIONAL RADIOLOGY (VIR) COLECTOMY PARTIAL LAPAROSCOPIC Right 03/08/2021 Laterality: Right; Surgeon: Rodrigo López MD; Location: [facility] MAIN OR PARATHYROIDECTOMY 2014 removed 2 nodules APPENDECTOMY BREAST LUMPECTOMY Left Benign per pt report; approximately age 41 CHOLECYSTECTOMY HYSTERECTOMY KNEE SURGERY ORIF WRIST Left Social History Tobacco Use Smoking status: Never Smokeless tobacco: Never Substance Use Topics Alcohol use: Not Currently Drug use: Never Family History Problem Relation Age of Onset Coronary Artery Disease Father Cancer- Other Paternal Uncle lip cancer Uterine Cancer Paternal Grandmother Thyroid Cancer Daughter 44 total thyroidectomy- follicular & papillary Breast Cancer Cousin Family Hx: Daughter has thyroid cancer Social Hx: no environmental exposures PHYSICAL EXAMINATION: Patient is in no acute distress. Patient is alert, oriented to person, place and time. Blood pressure 152/73, pulse 60, temperature 97.9 F (36.6 C), temperature source Oral, resp. rate 16, height 1.575 m (5' 2.01), weight 72.7 kg (160 lb 4.8 oz). HEENT: Head atraumatic, normocephalic. Gross vision intact. Eyes are nonicteric. Neck: supple, symmetrical Lungs: Clear to auscultation bilaterally. No rales or wheezing. Heart: Regular heart rate and rhythm. Abdomen: Soft, nontender, non distended, without palpable masses. Normoactive bowel sounds present. No liver or mass arepalpable. Extremities: No edema Skin: Warm and dry with good skin turgor. No rash. Lymph nodes: No l ymphadenopathy noted in left or right inguinal area Neurologic: No focal deficits, grossly intact. IMAGING STUDIES: NUC PET NEUROENDOCRINE Result Date: 02/03/2022 EXAM: NUC PET NEUROENDOCRINE, 02/03/2022 12:32 PM CLINICAL INDICATIONS: NET; , COMPARISON: PET/CT January 18, 2021 CT DOSE: DLP: 585 mGy x cm kVp: 120 TECHNIQUE: Approximately 61 minutes following the injection of 4.0 mCi of Gallium-68 Dotatate, the patient was positioned on the Siemens [...] pituitary gland, salivary glands, and thyroid. Chest: Very mild uptake within a subpectoral lymph node on the right which is below background hepatic uptake. Similar uptake within multiple left axillary lymph nodes. Tracer uptake within a nodule at the right major fissure which despite being below background hepatic activity is still concerning for malignancy. This appears similar to the prior exam. Increased uptake within a right internal mammary lymph node which is above hepatic background and increased in avidity since the prior exam. Abdomen/Pelvis: Intense physiologic uptake seen within the spleen and adrenal glands which can obscure potential disease in these structures. Milder physiologic uptake seen within the liver. Multifocal hepatic disease redemonstrated, however, lesions overall do appear improved with resolution of a couple of foci and improvement in intensity of others., Mild activity within the left inguinal region and along the left anterior pelvic wall. Pelvic wall activity appears more intense with new activity in the lymph node. Perirectal nodularity redemonstrated, similar. Increased uptake along the left pelvic sidewall appears slightly improved. There is a mesenteric nodule with mild avidity which is difficult to differentiate from adjacent bowel on the prior exam. Musculoskeletal: Mild increased uptake at the left SI region. IMPRESSION: . 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 Worsening of anterior pelvic wall activity and improvement of left pelvic sidewall activity, with new activity in a left inguinal lymph node. Similar perirectal activity Milder activity within a nodule at the right major fissure which despite being below background hepatic activity is still concerning for malignancy and stable. Nonspecific uptake within a right subpectoral lymph node and multiple left axillary lymph nodes. Interval increase in activity within the leftacetabulum as well as the left hemisacrum. Electronically Signed By: Lucinda Russell M.D. on :12 PM Imaging results have been reviewed and discussed with the patient. LABS: Latest Reference Range & Units 02/03/22 13:04 SODIUM 135 - 145 mmol/L 142 POTASSIUM 3.5 - 5.0 mmol/L 4.3 CHLORIDE 98 - 108 mmol/L 104 CARBON DIOXIDE (CO2) 21 - 31 mmol/L 29 BUN 7 - 25 mg/dL 12 CREATININE SERUM 0.50 - 1.20 mg/dL 0.82 BUN/CREA RATIO 15 eGFR, CKD-EPI, Female >=60 mL/min/1.73m2 72 CALCIUM 8.6 - 10.5 mg/dL 9.8 ANION GAP 7 - 17 mmol/L 13 OSMOLALITY (CALC) 278 - 305 mOsm/kg 297 BILIRUBIN, TOTAL <1.5 mg/dL 0.8 PROTEIN, TOTAL 6.4 - 8.3 g/dL 7.4 Albumin 3.5 - 5.0 g/dL 4.3 ALKALINE PHOSPHATASE 32 - 126 U/L 128 (H) ALT 9 - 48 U/L 16 AST 10 - 39 U/L 23 LACTATE DEHYDROGENASE 100 - 190 U/L 164 GLUCOSE 70 - 99 mg/dL 103 (H) Chromogranin A <93 ng/mL 56 WBC 3.99 - 11.19 K/uL 6.99 RBC 3.91 - 5.04 M/uL 4.57 HEMOGLOBIN 11.4 - 15.2 g/dL 13.1 HEMATOCRIT 34.9 - 44.3 % 40.4 MEAN CELL VOLUME 79.6 - 97.7 fL 88.4 Mean Cell HGB 25.9 - 33.9 pg 28.7 MEAN CELL HGB CONCENTRATION 31.4 - 35.9 g/dL 32.4 RBC DISTRIBUTION 10.8 - 14.9 % 16.4 (H) PLATELET COUNT 150 - 393 K/uL 264 MEAN PLATELET VOLUME 8.5 - 12.2 fL 10.1 RBC, NUCLEATED <=0.2 /100 WBC 0.0 NEUTROPHILS % % 64.3 LYMPHOCYTES % % 23.6 MONOCYTES % % 9.0 EOSINOPHILS % % 2.0 BASOPHILS % % 0.7 IMMATURE GRANS% % 0.4 SEGS + Bands, Absolute 1.64 - 7.28 K/uL 4.49 IMMATURE GRANS ABSOLUTE <=0.08 K/uL <0.04 LYMPHS, ABSOLUTE 1.16 - 3.51 K/uL 1.65 MONOS, ABSOLUTE 0.22 - 0.87 K/uL 0.63 EOS, ABSOLUTE 0.00 - 0.42 K/uL 0.14 Abs Baso Auto 0.00 - 0.15 K/uL 0.05 DIFF STATUS Electronic Differential (H): Data is abnormally high Lab results have been reviewed and discussed with the patient. IMPRESSION & PLAN: Disease Assessment Dx: WD NET Ki-67 6% of primary likely ileum (FDG PET mesenteric uptake SUV 4.2) 10/2020: Sandostatin started 03/08/2021: laparoscopic right hemicolectomy: A. Right colon and terminal ileum, laparoscopic right hemicolectomy: Well-differentiated neuroendocrine tumor, grade 1,involving the terminal ileum, see synoptic report Surgical margins are negative for tumor Tumor is panmural and involves the serosa Extensive perineural invasion 20 benign lymph nodes (0/20) Immunohistochemical stains for chromogranin and synaptophysin are positive. Manual quantitative immunohistochemistry for Ki-67 is 0%. Zero mitoses were seen in 2 mm2. 03/22/21- left hepatic TAE by Dr. Rush. 05/31/2021: Right hepatic. Tolerated well. 06/16/2021: Venous doppler: +acute DVT of right tibioperoneal trunk, peroneal, soleus veins Assessment: Tumor burden: Liver, terminal ileum, LN: medial right lower lobe pulmonary nodule with focal tracer uptake, suspicious for pulmonary metastasis. Multiple right internal mammary, retroperitoneal, mesenteric and pelvic lymph nodes with significant tracer uptake Symptom Wilmore at presentation: Diarrhea which improved on sandostatin. Pace of disease: Based on scans between August 2020 and Dec 2020: Liver lesions are stable. Plan: - Patient now s/p R hemicolectomy and staged TAE. - She had two hospital visits showing +DVT. Was started on 2.5 mg eliquis BID. She should continue this. Experienced RLE edema and pain which has now subsided. - Options at PD include PRRT, Afinitor, CABINET trial, or repeat TAE Return to clinic: [address] David with labs and scans one week prior Labs: with scans Scans: MRI abd & CT chest WITHOUT contrast 08/2022, 1 week prior to RTC Treatment: Continue SSA locally q 28 days - Currently on Sandostatin to 30 mg, doing well. Uses imodium prn. *HTN - metoprolol, amlodipine, & lisinopril - did not take any this morning, 161/71 in clinic today (130s/60s at home) - follows with cardiology The patient had many questions all that were answered to her satisfaction. She will contact the clinic with any questions or concerns. She understands and agrees to the plan. I have seen, discussed, and formulated the above treatment plan with Dr. Erwin David who agrees with the plan. TATI Main PA-C Physician Pacu Nurse Neuroendocrine/Thyroid Tumor Program [facility] Preet Coburn [facility] [place] documented [facility] Instructions* Patient Instructions* Selina Ortiz RN - 02/18/2022 9:30 AM EST Return to clinic: [address] David with labs and scans one week prior Labs: with scans Scans: MRI abd & CT chest WITHOUT contrast 08/2022, 1 week prior to RTC Treatment: Continue SSA locally q 28 days documented in this encounterPrem[facility] History of Present illness Narrative* Sabrina Moreira RN - 08/27/2021 1:00 PM EDT Patient doesn't think the medication she was started out on is working like it should. A week priorto being due for her next dose, she has diarrhea every day. She is at the maximum amount for the shot. * Erwin David MD - 08/27/2021 1:00 PM EDT Images from the original note were not included. REFERRING MD: Referral from: Dr. Matt Nunez Scheduled with Dr. David on 11/25 DX: metastatic NEC Ki67%: 5% Pathology: [facility] 09/[facility] HISTORY OF PRESENT ILLNESS: Mary Jenkins is a 80 y.o. female who is diagnosed with neuroendocrine tumor. She comes here today for evaluation regarding diagnosis. She was in usual state of health until: 2015: Resection of parathyroid adenomas August 2020: Acute onset of abdominal pain and diarrhea. She was treated for diverticulitis. Diarrheaimproved, but continued with RUQ pain. September 25, 2020: Liver core biopsy: [facility] read: A. Liver mass, CT-guided core biopsy: Metastatic well-differentiated neuroendocrine tumor, G2 Immunohistochemical stain performed at outside hospital TTF 1 negative S100 negative CK7 negative CK20 negative Napsin a negative CD117 negative P 40 negative Pancytokeratin positive NSE positive CD56 positive Synaptophysin positive Chromogranin positive Henry 2 positive CDX2 positive CK8 positive Ki-67: 6% Comment: The immunohistochemical profile suggests a gastrointestinal primary. Clinical correlation is recommended. 10/13/2020: FDG PET: Increased FDG distrubution noted in the region of the proximal ascending colong. Liver does not uptake FDG. 10/2020: Sandostatin q 28 days 12/29/2020: MRI A/P: IMPRESSION: 1. Probable mass involving the distal/terminal ileum which may represent the primary site of the known neuroendocrine tumor. No upstream bowel distention. No mesenteric masses. 2. Multiple lesions within the liver consistent with metastatic disease. Dominant lesion in posterior left lobe. 3. No adenopathy in the abdomen or pelvis. 4. Status post hysterectomy and cholecystectomy. 03/08/2021: laparoscopic right colectomy: A. Right colon and terminal ileum, laparoscopic right hemicolectomy: Well-differentiated neuroendocrine tumor, grade 1,involving the terminal ileum, see synoptic report Surgical margins are negative for tumor Tumor is panmural and involves the serosa Extensive perineural invasion 20 benign lymph nodes (0/20) Immunohistochemical stains for chromogranin and synaptophysin are positive. Manual quantitative immunohistochemistry for Ki-67 is 0%. Zero mitoses were seen in 2 mm2. 03/22/21- left hepatic lobe TAE by Dr. Rush 05/31/2021: Right hepatic lobe. 06/16/2021: Venous doppler: +acute DVT of right tibioperoneal trunk, peroneal, soleus veins. 06/19/2021 CT C/A/P multiple lesions of decreased attenuation within the liver worrisome for metastatic disease including a 7 cm lesion within the posterior segment the right lobe of the liver. There is diffuse atherosclerotic calcification of the abdominal aorta, without a demonstrated aneurysm. 08/13/2021 MRI A/P IMPRESSION: 1. Status post right hemicolectomy involving the previously described mass within the distal/terminal ileum, compatible with patient's known history of neuroendocrine tumor. No evidence of recurrence within the resection bed. No discrete mesenteric masses. 2. Status post interval transarterial bland embolization of lesions in segment 2/3 which has decreased in size (now measuring 3.0 x 2.4 cm, previously 4.6 x 4.1 cm.) however demonstrates persistent peripheral arterial phase enhancement, suggestive of viable disease. 3. Status post interval transarterial bland embolization lesion in segment 7. No definite abnormal enhancement is identified. Interval development of likely posttreatment confluent necrotic collections in this region. 4. Additional previously indexed arterially enhancing lesions in segment 4A/5 are not significantly changed. 5. Focus of intrinsic T1 hyperintensity within the proximal common hepatic is suggestive of posttreatment hemobilia. No significant proximal intrahepatic biliary ductal dilation. Mild persistent prominence of the common bile duct could relate to postcholecystectomy ectasia. 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 She watches what she eats during that week to try to help reduce diarrhea, she also takes imodium. She reportsthat the right liver embolization was very painful and she reported to the ED ~4 weeks after her procedure. She states that the pain was along he right side and back. She was administered morphine. She has continued fatigue and diarrhea. ECOG PS: 1 REVIEW OF SYSTEMS: A review of systems was performed with the patient at today's patient and is negative except for those items mentioned in the interval history and those items mentioned below as well as in the nursing documentation review of systems. ONC AMB Nursing Assessment 06/29/2021 Performance Status Grade 1 Fatigue Grade 2 Nausea Grade 0 Vomiting Grade 0 Anorexia Grade 0 Constipation Grade 0 Peripheral Motor Neuropathy Grade 0 Depression Grade 0 Mucositis (oral, pharyngeal) Grade 0 Dyspnea Grade 1 Pain Grade 1 Fever Grade 0 Localized Edema Grade 0 Rash Maculo-Papular Grade 0 All other systems are negative. Allergies Allergen Reactions Contrast Dye [Ivp Dye, Iodine Containing] Anaphylaxis Takes prednisone & benadryl prior to CT scans as pre-meds Penicillin G Other reaction(s): Shortness of breath, edema Current Outpatient Medications Medication Sig Dispense Refill acetaminophen 325 MG tablet Take 2 tablets by mouth every 6 hours. 0 amLODIPine 5 MG tablet Take 5 mg by mouth daily every morning. atorvastatin 10 MG tablet Take 10 mg by mouth daily every morning. Eliquis 2.5 MG tablet Take 2.5 mg by mouth every 12 hours. flecainide 100 MG tablet Take one tablet twice a day for heartbeat. Ibuprofen 200 MG capsule Take 200 mg by mouth. Take 1-3 capsules at a given time. Uses for leg pain/aches. lisinopril 40 MG tablet Take 40 mg by mouth daily every morning. Magnesium 250 MG tablet Take 250 mg by mouth daily every morning. metoprolol succinate 100 MG tablet XL 100 mg daily every morning. octreotide acetate (SandoSTATIN LAR Depot) 20 MG Kit injection Inject 20 mg intramuscularly Once. Every 30 days predniSONE & diphenhydrAMINE 3 x 50 MG & 1 x 50 MG Kit Take 1 kit by mouth As directed. Take 50 mg prednisone 13 & 7 hrs prior to scans. Take 50 mg benadryl & 50 mg prednisone 1 hour prior. Ok to split kit if needed 1 kit 3 Sertraline HCl 150 MG capsule 150 mg daily every morning. oxyCODONE-acetaminophen (Percocet) 7.5-325 MG tablet Take 1 tablet by mouth every 6 hours as neededfor up to 14 days. 30 tablet 0 No current facility-administered medications for this visit. Past Medical History: Diagnosis Date Arrhythmia atrial fibrillation Essential hypertension, benign History of cancer Hyperlipidemia Rheumatic fever Past Surgical History: Procedure Laterality Date OCCLUSION/EMBOLIZATION ENDOVASCULAR TUMORS/ORGAN ISCHEMIA/INFARCTION N/A 05/31/2021 Laterality: N/A; Surgeon: Humberto Rush MD; Location: [facility] INTERVENTIONAL RADIOLOGY (VIR) OCCLUSION/EMBOLIZATION ENDOVASCULAR TUMORS/ORGAN ISCHEMIA/INFARCTION N/A 03/22/2021 Laterality: N/A; Surgeon: Humberto Rush MD; [facility] INTERVENTIONAL RADIOLOGY (VIR) COLECTOMY PARTIAL LAPAROSCOPIC Right 03/08/2021 Laterality: Right; Surgeon: Rodrigo López MD; Location: [facility] MAIN OR PARATHYROIDECTOMY 2014 removed 2 nodules APPENDECTOMY BREAST LUMPECTOMY Left Benign per pt report; approximately age 41 CHOLECYSTECTOMY HYSTERECTOMY KNEE SURGERY ORIF WRIST Left Social History Tobacco Use Smoking status: Never Smoker Smokeless tobacco: Never Used Substance Use Topics Alcohol use: Not Currently Drug use: Never Family History Problem Relation Age of Onset Coronary Artery Disease Father Cancer- Other Paternal Uncle lip cancer Uterine Cancer Paternal Grandmother Thyroid Cancer Daughter 44 total thyroidectomy- follicular & papillary Breast Cancer Cousin Family Hx: Daughter has thyroid cancer Social Hx: no environmental exposures PHYSICAL EXAMINATION: Patient is in no acute distress. Patient is alert, oriented to person, place and time. Blood pressure 161/71, pulse 59, temperature 97.7 F (36.5 C), temperature source Oral, resp. rate 18, height 1.575 m (5' 2), weight 72.2 kg (159 lb 1.6 oz), SpO2 99 %. HEENT: Head atraumatic, normocephalic. Gross vision intact. Eyes are nonicteric. Neck: supple, symmetrical, no adenopathy, no tenderness/mass/nodules. Lungs: Clear to auscultation bilaterally. No rales or wheezing. Heart:Regular heart rate and rhythm. Abdomen: Soft, nontender, non distended, without palpable masses. Nor moactive bowel sounds present. No liver or mass are palpable. Extremities: right leg slight swelling. Skin: Warm and dry with good skin turgor. No rash. Lymph nodes: No lymphadenopathy. Neurologic: No focal deficits, grossly intact. IMAGING STUDIES: No imaging this visit. Imaging results have been reviewed and discussed with the patient. LABS: Results for MARY JENKINS ( ) as of 04/14/2021 14:09 Ref. Range 04/14/2021 12:35 SODIUM Latest Ref Range: 135 - 145 mmol/L 139 POTASSIUM Latest Ref Range: 3.5 - 5.0 mmol/L 4.8 CHLORIDE Latest Ref Range: 98 - 108 mmol/L 104 CARBON DIOXIDE (CO2) Latest Ref Range: 21 - 31 mmol/L 28 BUN Latest Ref Range: 7 - 25 mg/dL 19 CREATININE SERUM Latest Ref Range: 0.50 - 1.20 mg/dL 0.89 BUN/CREA RATIO Unknown 21 eGFR, CKD-EPI, Female Latest Ref Range: >=60 mL/min/1.73m2 66 CALCIUM Latest Ref Range: 8.6 - 10.5 mg/dL 9.5 ANION GAP Latest Ref Range: 7 - 17 mmol/L 12 OSMOLALITY (CALC) Latest Ref Range: 278 - 305 mOsm/kg 297 BILIRUBIN, TOTAL Latest Ref Range: <1.5 mg/dL 0.4 PROTEIN, TOTAL Latest Ref Range: 6.4 - 8.3 g/dL 7.0 ALBUMIN Latest Ref Range: 3.5 - 5.0 g/dL 4.1 ALKALINE PHOSPHATASE Latest Ref Range: 32 - 126 U/L 112 ALT Latest Ref Range: 9 - 48 U/L 12 AST Latest Ref Range: 10 - 39 U/L 15 LACTATE DEHYDROGENASE Latest Ref Range: 100 - 190 U/L 138 GLUCOSE Latest Ref Range: 70 - 99 mg/dL 134 (H) WBC Latest Ref Range: 3.99 - 11.19 K/uL 8.57 RBC Latest Ref Range: 3.91 - 5.04 M/uL 4.07 HEMOGLOBIN (HGB) Latest Ref Range: 11.4 - 15.2 g/dL 11.6 HEMATOCRIT (HCT) Latest Ref Range: 34.9 - 44.3 % 36.2 MEAN CELL VOLUME Latest Ref Range: 79.6 - 97.7 fL 88.9 Mean Cell HGB Latest Ref Range: 25.9 - 33.9 pg 28.5 MEAN CELL HGB CONCENTRATION Latest Ref Range: 31.4 - 35.9 g/dL 32.0 RBC DISTRIBUTION Latest Ref Range: 10.8 - 14.9 % 15.0 (H) PLATELET COUNT Latest Ref Range: 150 - 393 K/uL 340 MEAN PLATELET VOLUME Latest Ref Range: 8.5 - 12.2 fL 9.9 RBC, NUCLEATED Latest Ref Range: <=0.2 /100 WBC 0.0 NEUTROPHILS % Latest Units: % 56.0 LYMPHOCYTES % Latest Units: % 27.1 MONOCYTES % Latest Units: % 12.0 EOSINOPHILS % Latest Units: % 4.0 BASOPHILS % Latest Units: % 0.7 IMMATURE GRANS% Latest Units: % 0.2 SEGS + Bands, Absolute Latest Ref Range: 1.64 - 7.28 K/uL 4.80 IMMATURE GRANS ABSOLUTE Latest Ref Range: <=0.09 K/uL <0.04 LYMPHS, ABSOLUTE Latest Ref Range: 1.16 - 3.51 K/uL 2.32 MONOS, ABSOLUTE Latest Ref Range: 0.22 - 0.87 K/uL 1.03 (H) EOS, ABSOLUTE Latest Ref Range: 0.00 - 0.42 K/uL 0.34 Abs Baso Auto Latest Ref Range: 0.00 - 0.15 K/uL 0.06 DIFF STATUS Unknown Electronic Differential Lab results have been reviewed and discussed with the patient. IMPRESSION & PLAN: Disease Assessment Dx: WD NET Ki-67 6% of primary likely ileum (FDG PET mesenteric uptake SUV 4.2) 10/2020: Sandostatin started 03/08/2021: laparoscopic right hemicolectomy: A. Right colon and terminal ileum, laparoscopic right hemicolectomy: Well-differentiated neuroendocrine tumor, grade 1,involving the terminal ileum, see synoptic report Surgical margins are negative for tumor Tumor is panmural and involves the serosa Extensive perineural invasion 20 benign lymph nodes (0/20) Immunohistochemical stains for chromogranin and synaptophysin are positive. Manual quantitative immunohistochemistry for Ki-67 is 0%. Zero mitoses were seen in 2 mm2. 03/22/21- left hepatic TAE by Dr. Rush. 05/31/2021: Right hepatic. Tolerated well. 06/16/2021: Venous doppler: +acute DVT of right tibioperoneal trunk, peroneal, soleus veins 06/19/2021 CT C/A/P multiple lesions of decreased attenuation within the liver worrisome for metastatic disease including a 7 cm lesion within the posterior segment the right lobe of the liver. There is diffuse atherosclerotic calcification of the abdominal aorta, without a demonstrated aneurysm. 08/13/2021 MRI A/P IMPRESSION: 1. Status post right hemicolectomy involving the previously described mass within the distal/terminal ileum, compatible with patient's known history of neuroendocrine tumor. No evidence of recurrence within the resection bed. No discrete mesenteric masses. 2. Status post interval transarterial bland embolization of lesions in segment 2/3 which has decreased in size (now measuring 3.0 x 2.4 cm, previously 4.6 x 4.1 cm.) however demonstrates persistent peripheral arterial phase enhancement, suggestive of viable disease. 3. Status post interval transarterial bland embolization lesion in segment 7. No definite abnormal enhancement is identified. Interval development of likely posttreatment confluent necrotic collections in this region. 5. Focus of intrinsic T1 hyperintensity within the proximal common hepatic is suggestive of posttreatment hemobilia. No significant proximal intrahepatic biliary ductal dilation. Mild persistent prominence of the common bile duct could relate to postcholecystectomy ectasia. Assessment: Tumor burden: Liver, terminal ileum, LN: medial right lower lobe pulmonary nodule with focal tracer uptake, suspicious for pulmonary metastasis. Multiple right internal mammary, retroperitoneal, mesenteric and pelvic lymph nodes with significant tracer uptake Symptom Wilmore at presentation: Diarrhea which improved on sandostatin. Abdominal pain Pace of disease: Based on scans between August 2020 and Dec 2020: Liver lesions are stable. Plan: - Patient now s/p R hemicolectomy and staged TAE. - She had two hospital visits showing +DVT. Was started on 2.5 mg eliquis BID. She should continue this. Experienced RLE edema and pain which has now subsided. - Options at PD include PRRT, Afinitor, CABINET trial, or repeat TAE - we will provide a handout for PRRT education - Currently on Sandostatin to 30 mg which wears off in the 4th week. We can consider q 3weeks instead of q 4 weeks. Pt expressed lack of interest currently. Other options include a week of subQ sandoin the 4th week to tide over this period. - Recommended using imodium for diarrhea more frequently which pt was not doing, educated that it may be used up to 8 tablets/day - Repeat Ga PET to assess tumor burden - RTC in 8 weeks *HTN - metoprolol, amlodipine, & lisinopril - did not take any this morning, 161/71 in clinic today (130s/60s at home) - follows with cardiology Orders Placed This Encounter NUC PET NEUROENDOCRINE CBC, EDIF, PLATELET CHROMOGRANIN A COMPREHENSIVE METABOLIC PANEL LACTATE DEHYDROGENASE No follow-ups on file. Documented by Yaritza Graham, for Dr. David on 08/27/2021 at 1:18 PM All medical record entries made by the Santos were at my direction and personally dictated by me, Erwin David MD. I have reviewed and edited the chart and agree that the record accurately reflects my personal performance of the history, physical exam, assessment and plan. I have also personally directed, reviewed, and agree with the discharge instructions. Erwin David M.D. Neuroendocrine/Thyroid Tumor Program [facility] and José Sant[facility] documented in this encounterPremier Health [facility]07-15-[facility]22 Instructions* Patient Instructions* Selina Ortiz RN - 08/27/2021 8:42 AM EDT Return to clinic : 4 months with labs and scans 1 week prior With provider: Joann Labs: with scans Scans: 12/2021 (1 week prior to RTC) Nursing F/up: - Reach out to Dr. Nunez to increase kristal to 30 mg [facility] Instructions* Patient Instructions* Britany Jane PA-C - 06/29/2021 11:12 AM EDT Follow up appointments - RTC in [address] David Labs/Scans 2 weeks prior to RTC in 8 weeks Medications: Continue all medications as prescribed Nursing follow up CT PE results Thank you for choosing [facility] for your cancer care. FMLA/Disability forms: Please allow up to 2 weeks for the forms to be returned to you Refill requests: Please allow 24-48 hours for a response My chart message response: PLEASE DO NOT SEND IN URGENT/EMERGENT MESSAGES VIA MY CHART. Please allow up to 24-48 hours for a response via my chart. Should you have questions or concerns, please call [phone] documented in this encounterPremier Health [facility]05-17-2022 History of Present illness Narrative* Britany Jane PA-C - 06/29/2021 11:00 AM EDT Images from the original note were not included. REFERRING MD: Referral from: Dr. Matt Nunez Scheduled with Dr. David on 11/25 DX: metastatic NEC Ki67%: 5% Pathology: [facility] 09[facility]2020 HISTORY OF PRESENT ILLNESS: Mary Jenkins is a 80 y.o. female who is diagnosed with neuroendocrine tumor. She comes here today for evaluation regarding diagnosis. She was in usual state of health until: 2015: Resection of parathyroid adenomas August 2020: Acute onset of abdominal pain and diarrhea. She was treated for diverticulitis. Diarrheaimproved, but continued with RUQ pain. September 25, 2020: Liver core biopsy: [facility] read: A. Liver mass, CT-guided core biopsy: Metastatic well-differentiated neuroendocrine tumor, G2 Immunohistochemical stain performed at outside hospital TTF 1 negative S100 negative CK7 negative CK20 negative Napsin a negative CD117 negative P 40 negative Pancytokeratin positive NSE positive CD56 positive Synaptophysin positive Chromogranin positive Henry 2 positive CDX2 positive CK8 positive Ki-67: 6% Comment: The immunohistochemical profile suggests a gastrointestinal primary. Clinical correlation is recommended. 10/13/2020: FDG PET: Increased FDG distrubution noted in the region of the proximal ascending colong. Liver does not uptake FDG. 10/2020: Sandostatin q 28 days 12/29/2020: MRI A/P: IMPRESSION: 1. Probable mass involving the distal/terminal ileum which may represent the primary site of the known neuroendocrine tumor. No upstream bowel distention. No mesenteric masses. 2. Multiple lesions within the liver consistent with metastatic disease. Dominant lesion in posterior left lobe. 3. No adenopathy in the abdomen or pelvis. 4. Status post hysterectomy and cholecystectomy. 03/08/2021: laparoscopic right colectomy: A. Right colon and terminal ileum, laparoscopic right hemicolectomy: Well-differentiated neuroendocrine tumor, grade 1,involving the terminal ileum, see synoptic report Surgical margins are negative for tumor Tumor is panmural and involves the serosa Extensive perineural invasion 20 benign lymph nodes (0/20) Immunohistochemical stains for chromogranin and synaptophysin are positive. Manual quantitative immunohistochemistry for Ki-67 is 0%. Zero mitoses were seen in 2 mm2. 03/22/21- left hepatic lobe TAE by Dr. Rush 05/31/2021: Right hepatic lobe. 06/16/2021: Venous doppler: +acute DVT of right tibioperoneal trunk, peroneal, soleus veins. Chief Complaint Patient presents with Follow-up 2 blood clots in right leg 2 weeks ago tomorrow did U/S- right side of liver, was supposed to be onblood thinners (wasn't approved). She is on Eliquis 2.5 mg BID TAE procedure done on 05/31 Would like to know how many tumors are on the right side of her liver Since last TAE patient had two ER visits. She was found to have a DVT. She also had pain on breathing in and out. CTA chest was negative for PE. She was started on eliquis 2.5 mg BID. Her pain in herleg is better now. ECOG PS: 1 REVIEW OF SYSTEMS: A review of systems was performed with the patient at today's patient and is negative except for those items mentioned in the interval history and those items mentioned below as well as in the nursing documentation review of systems. ONC AMB Nursing Assessment 06/29/2021 Performance Status Grade 1 Fatigue Grade 2 Nausea Grade 0 Vomiting Grade 0 Anorexia Grade 0 Constipation Grade 0 Peripheral Motor Neuropathy Grade 0 Depression Grade 0 Mucositis (oral, pharyngeal) Grade 0 Dyspnea Grade 1 Pain Grade 1 Fever Grade 0 Localized Edema Grade 0 Rash Maculo-Papular Grade 0 All other systems are negative. Allergies Allergen Reactions Contrast Dye [Ivp Dye, Iodine Containing] Anaphylaxis Takes prednisone & benadryl prior to CT scans as pre-meds Penicillin G Other reaction(s): Shortness of breath, edema Current Outpatient Medications Medication Sig Dispense Refill acetaminophen 325 MG tablet Take 2 tablets by mouth every 6 hours. 0 amLODIPine 5 MG tablet Take 5 mg by mouth daily every morning. atorvastatin 10 MG tablet Take 10 mg by mouth daily every morning. Eliquis 2.5 MG tablet Take 2.5 mg by mouth every 12 hours. flecainide 100 MG tablet Take one tablet twice a day for heartbeat. Ibuprofen (Advil) 200 MG capsule Take 200 mg by mouth. Take 1-3 capsules at a given time. Uses for leg pain/aches. lisinopril 40 MG tablet Take 40 mg by mouth daily every morning. Magnesium 250 MG tablet Take 250 mg by mouth daily every morning. metoprolol succinate 100 MG tablet XL 100 mg daily every morning. octreotide acetate (SandoSTATIN LAR [place]) 20 MG Kit injection Inject 20 mg intramuscularly Once. Every 30 days oxyCODONE-acetaminophen (Percocet) 7.5-325 MG tablet Take 1 tablet by mouth every 6 hours as neededfor up to 14 days. 30 tablet 0 Sertraline HCl 150 MG capsule 150 mg daily every morning. predniSONE & diphenhydrAMINE 3 x 50 MG & 1 x 50 MG Kit Take 1 kit by mouth As directed. Take 50 mg prednisone 13 & 7 hrs prior to scans. Take 50 mg benadryl & 50 mg prednisone 1 hour prior. Ok to split kit if needed 1 kit 3 No current facility-administered medications for this visit. Past Medical History: Diagnosis Date Arrhythmia atrial fibrillation Essential hypertension, benign History of cancer Hyperlipidemia Rheumatic fever Past Surgical History: Procedure Laterality Date OCCLUSION/EMBOLIZATION ENDOVASCULAR TUMORS/ORGAN ISCHEMIA/INFARCTION N/A 05/31/2021 Laterality: N/A; Surgeon: Humberto Rush MD; [facility]) OCCLUSION/EMBOLIZATION ENDOVASCULAR TUMORS/ORGAN ISCHEMIA/INFARCTION N/A 03/22/2021 Laterality: N/A; Surgeon: Humberto Rush MD; [facility] (VIR) COLECTOMY PARTIAL LAPAROSCOPIC Right 03/08/2021 Laterality: Right; Surgeon: Rodrigo López MD; Location: [facility] MAIN OR PARATHYROIDECTOMY 2014 removed 2 nodules APPENDECTOMY BREAST LUMPECTOMY Left Benign per pt report; approximately age 41 CHOLECYSTECTOMY HYSTERECTOMY KNEE SURGERY ORIF WRIST Left Social History Tobacco Use Smoking status: Never Smoker Smokeless tobacco: Never Used Substance Use Topics Alcohol use: Not Currently Drug use: Never Family History Problem Relation Age of Onset Coronary Artery Disease Father Cancer- Other Paternal Uncle lip cancer Uterine Cancer Paternal Grandmother Thyroid Cancer Daughter 44 total thyroidectomy- follicular & papillary Breast Cancer Cousin Family Hx: Daughter has thyroid cancer Social Hx: no environmental exposures PHYSICAL EXAMINATION: Patient is in no acute distress. Patient is alert, oriented to person, place and time. Blood pressure 148/69, pulse 78, temperature 98 F (36.7 C), temperature source Oral, resp.rate 16, height 1.575 m (5' 2.01), weight 69 kg (152 lb 3.2 oz), SpO2 97 %. HEENT: Head atraumatic, normocephalic. Gross vision intact. Eyes are nonicteric. Neck: supple, symmetrical, no adenopathy,no tenderness/mass/nodules. Lungs: Clear to auscultation bilaterally. No rales or wheezing. Heart: Regular heart rate and rhythm. Abdomen: Soft, nontender, non distended, without palpable masses. Normoactive bowel sounds present. No liver or mass are palpable. Extremities: right leg slight swelling. Skin: Warm and dry with good skin turgor. No rash. Lymph nodes: No lymphadenopathy. Neurologic: Nofocal deficits, grossly intact. IMAGING STUDIES: No imaging this visit. Imaging results have been reviewed and discussed with the patient. LABS: Results for MARY JENKINS ( ) as of 04/14/2021 14:09 Ref. Range 04/14/2021 12:35 SODIUM Latest Ref Range: 135 - 145 mmol/L 139 POTASSIUM Latest Ref Range: 3.5 - 5.0 mmol/L 4.8 CHLORIDE Latest Ref Range: 98 - 108 mmol/L 104 CARBON DIOXIDE (CO2) Latest Ref Range: 21 - 31 mmol/L 28 BUN Latest Ref Range: 7 - 25 mg/dL 19 CREATININE SERUM Latest Ref Range: 0.50 - 1.20 mg/dL 0.89 BUN/CREA RATIO Unknown 21 eGFR, CKD-EPI, Female Latest Ref Range: >=60 mL/min/1.73m2 66 CALCIUM Latest Ref Range: 8.6 - 10.5 mg/dL 9.5 ANION GAP Latest Ref Range: 7 - 17 mmol/L 12 OSMOLALITY (CALC) Latest Ref Range: 278 - 305 mOsm/kg 297 BILIRUBIN, TOTAL Latest Ref Range: <1.5 mg/dL 0.4 PROTEIN, TOTAL Latest Ref Range: 6.4 - 8.3 g/dL 7.0 ALBUMIN Latest Ref Range: 3.5 - 5.0 g/dL 4.1 ALKALINE PHOSPHATASE Latest Ref Range: 32 - 126 U/L 112 ALT Latest Ref Range: 9 - 48 U/L 12 AST Latest Ref Range: 10 - 39 U/L 15 LACTATE DEHYDROGENASE Latest Ref Range: 100 - 190 U/L 138 GLUCOSE Latest Ref Range: 70 - 99 mg/dL 134 (H) WBC Latest Ref Range: 3.99 - 11.19 K/uL 8.57 RBC Latest Ref Range: 3.91 - 5.04 M/uL 4.07 HEMOGLOBIN (HGB) Latest Ref Range: 11.4 - 15.2 g/dL 11.6 HEMATOCRIT (HCT) Latest Ref Range: 34.9 - 44.3 % 36.2 MEAN CELL VOLUME Latest Ref Range: 79.6 - 97.7 fL 88.9 Mean Cell HGB Latest Ref Range: 25.9 - 33.9 pg 28.5 MEAN CELL HGB CONCENTRATION Latest Ref Range: 31.4 - 35.9 g/dL 32.0 RBC DISTRIBUTION Latest Ref Range: 10.8 - 14.9 % 15.0 (H) PLATELET COUNT Latest Ref Range: 150 - 393 K/uL 340 MEAN PLATELET VOLUME Latest Ref Range: 8.5 - 12.2 fL 9.9 RBC, NUCLEATED Latest Ref Range: <=0.2 /100 WBC 0.0 NEUTROPHILS % Latest Units: % 56.0 LYMPHOCYTES % Latest Units: % 27.1 MONOCYTES % Latest Units: % 12.0 EOSINOPHILS % Latest Units: % 4.0 BASOPHILS % Latest Units: % 0.7 IMMATURE GRANS% Latest Units: % 0.2 SEGS + Bands, Absolute Latest Ref Range: 1.64 - 7.28 K/uL 4.80 IMMATURE GRANS ABSOLUTE Latest Ref Range: <=0.09 K/uL <0.04 LYMPHS, ABSOLUTE Latest Ref Range: 1.16 - 3.51 K/uL 2.32 MONOS, ABSOLUTE Latest Ref Range: 0.22 - 0.87 K/uL 1.03 (H) EOS, ABSOLUTE Latest Ref Range: 0.00 - 0.42 K/uL 0.34 Abs Baso Auto Latest Ref Range: 0.00 - 0.15 K/uL 0.06 DIFF STATUS Unknown Electronic Differential Lab results have been reviewed and discussed with the patient. IMPRESSION & PLAN: Disease Assessment Dx: WD NET Ki-67 6% of primary likely ileum (FDG PET mesenteric uptake SUV 4.2) 10/2020: Sandostatin started 03/08/2021: laparoscopic right colectomy: A. Right colon and terminal ileum, laparoscopic right hemicolectomy: Well-differentiated neuroendocrine tumor, grade 1,involving the terminal ileum, see synoptic report Surgical margins are negative for tumor Tumor is panmural and involves the serosa Extensive perineural invasion 20 benign lymph nodes (0/20) Immunohistochemical stains for chromogranin and synaptophysin are positive. Manual quantitative immunohistochemistry for Ki-67 is 0%. Zero mitoses were seen in 2 mm2. 03/22/21- left hepatic lobe TAE by Dr. Rush 05/31/2021: Right hepatic lobe. Assessment: Tumor burden: Liver, terminal ileum, LN: medial right lower lobe pulmonary nodule with focal tracer uptake, suspicious for pulmonary metastasis. Multiple right internal mammary, retroperitoneal, mesenteric and pelvic lymph nodes with significant tracer uptake Symptom Wilmore: Diarrhea which improved on sandostatin. Abdominal pain Pace of disease: Based on scans between August 2020 and Dec 2020: Liver lesions are stable. Plan: Patient now s/p staged TAE. She had two hospital visits showing +DVT. Was started on eliquis. She should continue this. Follow up appointments - RTC in [address] David Labs/Scans 2 weeks prior to RTC in 8 weeks -Options at PD include PRRT, Afinitor, CABINET trial The patient had many questions all that were answered to her satisfaction. She will contact the clinic with any questions or concerns. She understands and agrees to the plan. TATI Main PA-C Physician Pacu Nurse Neuroendocrine/Thyroid Tumor Program 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 yo patient with a history of NEC who was referred to the IR clinic by Dr. David for staged TAE. She is s/p TAE on by Dr. Rush. Presents to the IR clinic today for post procedure follow-up. Patient reports that she has some abdominal pain that is currently controlled with prn Percocet and Tylenol. Not having any nausea or vomiting. Has some flushing and diarrhea and doesn't feel as though the octreotide is working. Interventional Radiology History- 03/22/21-Left TAE by Dr. Rush 05/31/21-Right TAE by Dr. Rush Review of pertinent systems- Constitutional: Denies fevers Neuro: Endorses dizziness only if her blood pressure is low Cardiovascular: Denies chest pain Respiratory: Describes shortness of breath on exertion that is chronic in nature Gastro-intestinal: She is adequately hydrating and slowly advancing diet. Does not require anti-emetics at this time. Describes diarrhea related to her neuroendocrine cancer All other systems are negative Pain management: Describes mild abdominal pain controlled with prn Percocet and Tylenol Vital signs- Blood pressure 120/58, pulse 72, temperature 97.5 F (36.4 C), SpO2 96 %. Labs- Lab Results Component Value Date SODIUM 136 06/16/2021 POTASSIUM 4.4 06/16/2021 CHLORIDE 101 06/16/2021 CO2 28 06/16/2021 BUN 23 06/16/2021 CREATSERUM 0.86 06/16/2021 GLUCOSE 136 (H) 06/01/2021 Lab Results Component Value Date ALT 130 (H) 06/16/2021 AST 138 (H) 06/16/2021 ALKPHOS 178 (H) 06/16/2021 BILITOTAL 0.6 06/16/2021 Lab Results Component Value Date WBC 9.87 06/16/2021 HGB 11.2 (L) 06/16/2021 HCT 35.4 06/16/2021 PLATELET 390 06/16/2021 MCV 85.7 06/16/2021 Physical Exam- Constitutional: She is alert and in no acute distress. Neurological: Alert and oriented. CN II-XII grossly intact, no focal deficits. Cardiovascular: HR 72. Right groin cannula site: Endorses tenderness at the site; denies any bruising or numbness/tingling in the RLE. Pulmonary: Normal work of breathing. Abdominal: No distention. Skin: No erythema. MSK: Describes right knee pain for about one week that is worse with weight- bearing. Has some arthritis. Encouraged her to see her physician and start with a simple x-ray. Impression/Plan- Mary Jenkins is recovering from the TAE procedure well with the anticipated post-embolization syndrome symptoms of mild abdominal discomfort and fatigue. She is adequately hydrating and slowly advancing her diet. Continue with prescribed medications for symptom control as needed Obtain lab work today to ensure electrolytes and liver functions are correcting Follow up with Britany Jane PA-C on 06/29/21 Mary Jenkins was given the office contact information and will contact the office with any further questions or concerns. I spent a total of 20 minutes on today's encounter. Time included performing a medically appropriate examination and evaluation, obtaining or reviewing imaging studies, ordering tests or procedures, discussing the procedure or other options, and documenting clinical information in the medical record. Associated attestation - Humberto Rush MD - 06/25/2021 6:06 PM EDT Attending Physician Note: I interviewed and personally examined the patient today with the PERSONAL CARE AIDE. I discussed the findings and therapeutic plan with the PERSONAL CARE AIDE. I agree with the history, physical examination, and medical decisions as outlined. I spent 30 minutes in consultation on the day of the visit spent on evaluation / counseling / coordination of care of the patient. Ms. 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 She recently underwent the final staged TAE treatment of her liver disease. She is recovering well. She has mild int ermittent dull pain, no n/v, no fever, and less fatigue compared to her previous treatment. She reports some improvement in her neuroendocrine symptoms including less flushing/diarrhea although this is multifactorial as she's also on SandoStatin. She's hydrating well, and I encouraged her to continue to maintain good nutrition and rest during the recovery. I'm overall pleased with her clinical response so far. The next step is follow- up with Dr. David (oncology) and follow-up imaging typically at 1-month or so to assess the radiographic response/new baseline. Thank you for the opportunity to participate in Ms. Jenkins's care. Please do not hesitate to contact me with any questions or concerns that may arise. Humberto Rush MD, DABR Exchange Engineer Director of Scholarly Activity & Research Division of Vascular and Interventional Radiology Department of Radiology IR Clinic #: [facility]05-04-2022 History and physical note* Ying Cintron APRN-TRUCK LEASING MANAGER - 06/16/2021 10:40 AM EDT CC- Follow-up post-TAE procedure Diagnosis- Neuroendocrine HPI- Mary Jaycob Jenkins is a 80 y.o. yo patient with a history of NEC who was referred to the IR clinic by Dr. David for staged TAE. She is s/p TAE on by Dr. Rush. Presents to the IR clinic today for post procedure follow-up. Patient reports that she has some abdominal pain that is currently controlled with prn Percocet and Tylenol. Not having any nausea or vomiting. Has some flushing and diarrhea and doesn't feel as though the octreotide is working. Interventional Radiology History- 03/22/21-Left TAE by Dr. Rush 05/31/21-Right TAE by Dr. Rush Review of pertinent systems- Constitutional: Denies fevers Neuro: Endorses dizziness only if her blood pressure is low Cardiovascular: Denies chest pain Respiratory: Describes shortness of breath on exertion that is chronic in nature Gastro-intestinal: She is adequately hydrating and slowly advancing diet. Does not require anti-emetics at this time. Describes diarrhea related to her neuroendocrine cancer All other systems are negative Pain management: Describes mild abdominal pain controlled with prn Percocet and Tylenol Vital signs- Blood pressure 120/58, pulse 72, temperature 97.5 F (36.4 C), SpO2 96 %. Labs- Lab Results Component Value Date SODIUM 136 06/16/2021 POTASSIUM 4.4 06/16/2021 CHLORIDE 101 06/16/2021 CO2 28 06/16/2021 BUN 23 06/16/2021 CREATSERUM 0.86 06/16/2021 GLUCOSE 136 (H) 06/01/2021 Lab Results Component Value Date ALT 130 (H) 06/16/2021 AST 138 (H) 06/16/2021 ALKPHOS 178 (H) 06/16/2021 BILITOTAL 0.6 06/16/2021 Lab Results Component Value Date WBC 9.87 06/16/2021 HGB 11.2 (L) 06/16/2021 HCT 35.4 06/16/2021 PLATELET 390 06/16/2021 MCV 85.7 06/16/2021 Physical Exam- Constitutional: She is alert and in no acute distress. Neurological: Alert and oriented. CN II-XII grossly intact, no focal deficits. Cardiovascular: HR 72. Right groin cannula site: Endorses tenderness at the site; denies any bruising or numbness/tingling in the RLE. Pulmonary: Normal work of breathing. Abdominal: No distention. Skin: No erythema. MSK: Describes right knee pain for about one week that is worse with weight- bearing. Has some arthritis. Encouraged her to see her physician and start with a simple x-ray. Impression/Plan- Mary Jenkins is recovering from the TAE procedure well with the anticipated post-embolization syndrome symptoms of mild abdominal discomfort and fatigue. She is adequately hydrating and slowly advancing her diet. Continue with prescribed medications for symptom control as needed Obtain lab work today to ensure electrolytes and liver functions are correcting Follow up with Britany Jane PA-C on 06/29/21 Mary Jenkins was given the office contact information and will contact the office with any further questions or concerns. I spent a total of 20 minutes on today's encounter. Time included performing a medically appropriate examination and evaluation, obtaining or reviewing imaging studies, ordering tests or procedures, discussing the procedure or other options, and documenting clinical information in the medical record. Associated attestation - Humberto Rush MD - 06/25/2021 6:06 PM EDT Attending Physician Note: I interviewed and personally examined the patient today with the PERSONAL CARE AIDE. I discussed the findings and therapeutic plan with the PERSONAL CARE AIDE. I agree with the history, physical examination, and medical decisions as outlined. I spent 30 minutes in consultation on the day of the visit spent on evaluation / counseling / coordination of care of the patient. Ms. 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 She recently underwent the final staged TAE treatment of her liver disease. She is recovering well. She has mild int ermittent dull pain, no n/v, no fever, and less fatigue compared to her previous treatment. She reports some improvement in her neuroendocrine symptoms including less flushing/diarrhea although this is multifactorial as she's also on SandoStatin. She's hydrating well, and I encouraged her to continue to maintain good nutrition and rest during the recovery. I'm overall pleased with her clinical response so far. The next step is follow- up with Dr. David (oncology) and follow-up imaging typically at 1-month or so to assess the radiographic response/new baseline. Thank you for the opportunity to participate in Ms. Jenkins's care. Please do not hesitate to contact me with any questions or concerns that may arise. Humberto Rush MD, DABR Exchange Engineer Director of Scholarly Activity & Research Division of Vascular and Interventional Radiology Department of Radiology IR [facility] History of Present illness Narrative* Radha Carroll RN - 06/16/2021 10:40 AM EDT Met with patient and s/o in IR clinic today to discuss Right TAE f/u.,from 05/31/21.( Pt had a left TAE 03/22/21.) She is feeling better. She has a good appetite and no pain. Her energy level is low butslowly improving. She has an appointment with Dr. Jane 06/29. Labs were drawn and sent today. [facility] Instructions* Patient Instructions* EVIE RENTERIA - 06/16/2021 9:59 AM EDT Thank you for joining us for your post TAE follow up. If you have any additional questions or concerns please do not hesitate to reach out. Thank you IR clinic [facility] Note* Nursing Notes - Doris Herrera RN - 06/01/2021 1:17 PM EDT PIV removed. AVS given/reviewed. Pt denies questions. Pt discharged home with family at this time. [facility] Miscellaneous Notes* Nursing Notes - Doris Herrera RN - 06/01/2021 1:17 PM EDT PIV removed. AVS given/reviewed. Pt denies questions. Pt discharged home with family at this time. * Nursing Notes - Jocelyn Boyle RN - 06/01/2021 10:28 AM EDT 06/01/21 1026 Referral Information Arrived From home or self-care Final Discharge Planning Discharge Disposition Home Services at Discharge Outpatient clinical services (ie: lab draws, transfusions, injectables) Plan Patient/Family In Agreement With Plan yes Transport Request Mode of Transfer private vehicle Accompanied By family member Hilda NUNEZ Discharge Note Patient discussed in medical rounds for discharge home today from ERU bed. PCRM met with the patient/family yesterday to discuss final discharge plan and spoke to patient/daughter by phone this am. In summary, Patient is a 80 y.o. 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 Services for Discharge Home with family. Outpatient follow up Consults with Final Discharge Recommendations N/A Lines/Tubes/Drains/Wounds/Supplies Mynx closure to groin Medications No barriers anticipated in obtaining discharge medications. No prior authorizations anticipated. Reconciliation of medications to be completed by the medical team. Durable Medical Equipment N/A Choice Was Patient Choice Provided: N/A Transportation Transportation will be provided by family Education Discharge education provided by the medical team and updated in the After Visit Summary. Follow Up(s) Any follow up requested by the medical team arranged. Appointments in the After Visit Summary. Was Ambulatory PCRM added to the Care Team? No. Patient has no TERI needs at this time The patient's nurse Doris was updated regarding the final discharge plan. No other discharge needs have been identified at this time. This plan was developed in collaboration with the patient and caregiver/preferred decision maker. Patient and family are in agreement with final discharge plan. Please refer to AVS and medical record for additional information. Patient instructed to call with questions. PCRM will continue to follow with medical team for any additional discharge planning needs. If any changes to this individualized plan of care during evening and weekend hours and assistance is needed, please page the warning coordination meteorologist PCRM at [phone]. * Nursing Notes - Jaida Graham RN - 05/31/2021 2:31 PM EDT Patient MYNX and RLE Circ checks WDL. Jaida Graham RN * Nursing Notes - Jaida Graham RN - 05/31/2021 2:08 PM EDT MYNX and RLE circ checks WDL. Patient on 2L O2 after dilaudid administration. Jaida Graham RN * Nursing Notes - Jaida Graham RN - 05/31/2021 1:50 PM EDT Patient MYNX and RLE circ checks WDL. Jaida Graham RN * Nursing Notes - Jaida Graham RN - 05/31/2021 1:22 PM EDT MYNX and pulse check WDL. Jaida Graham RN * Nursing Notes - Jaida Graham RN - 05/31/2021 1:06 PM EDT Patient returned from IR, MYNX site WDL. Distal Pulses WDL. * Nursing Notes - Jerry Beth RN - 05/31/2021 11:40 AM EDT Interventional Radiology procedure completed with IR Attending Adri of TAE procedure. Pt tolerated procedure completed with local numbing agent and IV sedation. Mynx site with D/I dressing. Strict bedrest ordered x 2hrs. Pt to travel to pt floor bed post procedure. * Nursing Notes - Jerry Beth RN - 05/31/2021 11:[address] Rush notified of BP. [facility]* Nursing Notes - Jocelyn Boyle RN - 06/01/2021 10:28 AM EDT 06/01/21 1026 Referral Information Arrived From home or self-care Final Discharge Planning Discharge Disposition Home Services at Discharge Outpatient clinical services (ie: lab draws, transfusions, injectables) Plan Patient/Family In Agreement With Plan yes Transport Request Mode of Transfer private vehicle Accompanied By family member Hilda NUNEZ Discharge Note Patient discussed in medical rounds for discharge home today from ERU bed. PCRM met with the patient/family yesterday to discuss final discharge plan and spoke to patient/daughter by phone this am. In summary, Patient is a 80 y.o. 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 Services for Discharge Home with family. Outpatient follow up Consults with Final Discharge Recommendations N/A Lines/Tubes/Drains/Wounds/Supplies Mynx closure to groin Medications No barriers anticipated in obtaining discharge medications. No prior authorizations anticipated. Reconciliation of medications to be completed by the medical team. Durable Medical Equipment N/A Choice Was Patient Choice Provided: N/A Transportation Transportation will be provided by family Education Discharge education provided by the medical team and updated in the After Visit Summary. Follow Up(s) Any follow up requested by the medical team arranged. Appointments in the After Visit Summary. Was Ambulatory PCRM added to the Care Team? No. Patient has no TERI needs at this time The patient's nurse Doris was updated regarding the final discharge plan. No other discharge needs have been identified at this time. This plan was developed in collaboration with the patient and caregiver/preferred decision maker. Patient and family are in agreement with final discharge plan. Please refer to AVS and medical record for additional information. Patient instructed to call with questions. PCRM will continue to follow with medical team for any additional discharge planning needs. If any changes to this individualized plan of care during evening and weekend hours and assistance is needed, please page the warning coordination meteorologist PCRM at [phone]. [facility]04-18-2022 Note* Nursing Notes - Jaida Graham RN - 05/31/2021 2:31 PM EDT Patient MYNX and RLE Circ checks WDL. Jaida Graham RN [facility]04-18-2022 Note* Nursing Notes - Jaida Graham RN - 05/31/2021 2:08 PM EDT MYNX and RLE circ checks WDL. Patient on 2L O2 after dilaudid administration. Jaida Graham RN [facility]04-18-2022 Note* Nursing Notes - Jaida Graham RN - 05/31/2021 1:50 PM EDT Patient MYNX and RLE circ checks WDL. Jaida Graham RN [facility]04-18-2022 Hospital Discharge instructions* Discharge Instructions* Jocelyn Boyle RN - 05/31/2021 1:30 PM EDT CONTACTS: Interventional Radiology: [phone] Surgical Oncology: [phone] During office hours (Monday-Monday 8:00 AM - 4:30 PM): call the office number above if you have anyquestions or concerns. During weekends, holidays, or after-hours: call [facility] Intensive Care Unit Registered Nurse at [phone] and ask them to page the Interventional Radiologist warning coordination meteorologist Call 911 for medical emergencies. If you are unable to attend appointments that have been arranged for you, it is your responsibilityto call to reschedule at least 48 hours prior to the appointment date. Your After Visit Summary (AVS) has provided you with instructions for your discharge. It is your responsibility to ask questions if you have any. Please contact your medical care team at the numbers listed if you should have any additional questions. IMPORTANT INFORMATION Pain Medication: You may continue to have some discomfort and will be discharged with a prescription for pain medication. If your pain worsens, or is not relieved, contact the office. If you were taking prescription pain medication prior to your procedure, please make sure the doctor is aware. Nausea: You may continue to have nausea after you are discharged. It is important that you drink plenty of fluids, but follow the directions for advancing your diet. You will be given a prescription for an antiemetic (anti-nausea) medicine at discharge. Normal Observation with Mynx Closure (at the groin puncture site) You may experience a small lump /or mild tenderness at the puncture site and have some bruising or discomfort. PLEASE CONTACT YOUR DOCTOR IMMEDIATELY IF YOU EXPERIENCE ANY OF THE FOLLOWING SIGNS OR SYMPTOMS: Persistent tenderness or swelling at the puncture site. Significant pain at the puncture site or leg. Bleeding/oozing at the puncture site. Increasing redness, warmth, bruising or swelling at the puncture site. Numbness or tingling in the leg. Drainage from the puncture site. Non-healing wound. Fevers and chills. Any other unusual symptoms. NOTIFY YOUR PHYSICIAN Nausea and Vomiting: Persistent nausea and vomiting Inability to keep medication down Inability to keep 8 oz. of fluids down every 2 hours Unrelieved Pain: Increased or unrelieved pain taking maximum dose of prescribed pain medication Symptoms of DVT: DVT = Deep Vein Thrombus, or Blood Clot Any tender, swollen or reddened areas from your groin to your heels Numbness or tingling in your groin or calf The skin on your leg looks pale or blue or it feels cold to touch Any shortness of breath Chest pain Fever or chills Symptoms of Wound Infection: Increase in pain in or around wound Change in the amount of drainage Change in the color of drainage Change in the odor of drainage Warmth in the tissues around the wound Red streaks on the skin near the wound Fever (call only if your temperature is GREATER THAN 101 degrees) Incision separates/opens up TAKING CARE OF YOUR PUNCTURE SITE: Please leave the Band-Aid/bandage from your groin incision in place for 48 hours after the procedure. Then re-apply a clean, dry band-aid every day for five days or until a scab has formed at the site and as needed. Keep the site clean and dry. You may shower 24 hours after the procedure, but do not bathe or use a pool until the wound has completely closed. Gently clean your puncture site with soap and water. After showering, gently pat-dry the side with a clean towel; then let the site air dry before covering with a band-aid. Limit tight fitting clothes or underwear that may irritate the puncture site until the site has healed. ACTIVITY Day of Discharge: No Driving No driving while taking any narcotic prescription medication. Modify activity for a minimum of 3 days: No heavy lifting of anything over 5 pounds (equivalent to a 1/2 gallon of milk). After 3 days, no lifting over 10 pounds for 2 weeks. No pushing or pulling No vigorous/strenuous activity or straining. When you experiencing a cough, sneezing, or straining for a bowel movement: support your groin by pressing with your palm on top of the dressing or bandage. DIET Resume previous diet. You will find it easiest to tolerate small, frequent meals of mild/soft foods (soup, pudding, eggs)when you first go home. Advance your diet as tolerated. It is important that you drink at least 8 oz of water every 2 hours throughout the daytime to maintain adequate hydration. CANCER INFORMATION/RESOURCES For more information about your cancer diagnosis, treatment, and support, many resources are available. The [place] [employer] Information Call to request information or check hours. The [facility]: or , [email or web address] Additional resources in [facility] include the following: The [employer], [facility] . [facility] [facility] National Resources: [employer] Society (ACS), www.cancer.org 0-983-AYR-2345, [place]: 2-271-HOI-[place]. National Comprehensive Cancer Network (NCCN) 5-639-848-NCCN, www.nccn.org National Cancer [place] (NCI) 0-586-7-CANCER, www.nci.gov [facility] Care Classes: The [facility] offers a series of monthly classes about integrative care. Integrative care involves other care methods that may be used along with conventional cancer treatment. Learn about the role of exercise, diet and nutrition, manual and movement therapies as part of a comprehensive cancer care program. Classes also provide a chance to share thoughts and concerns with other cancer survivors, their families and friends. For more information, contact [facility] at or visit our website at [email or web address] documented [facility] Note* Nursing Notes - Jaida Graham RN - 05/31/2021 1:22 PM EDT MYNX and pulse check WDL. Jaida Graham RN [facility]04-18-2022 Note* Nursing Notes - Jaida Graham RN - 05/31/2021 1:06 PM EDT Patient returned from IR, MYNX site WDL. Distal Pulses WDL. 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 Diagnostic visceral angiography/cone beam CT 2. Superselective transarterial embolization of the dominant right hepatic lobe tumor distribution PROCEDURE DETAILS, FINDINGS, AND PLAN: 1. Diagnostic visceral angiography/cone beam CT 2. Superselective transarterial embolization of the dominant right hepatic lobe tumor distribution Plan: -Strict bed rest for 2 hours. -Medical management of post-embolization syndrome symptoms. -F/u in the in IR clinic in 2 weeks. Please refer to the imaging tab for the full dictation final report. PROCEDURE PERFORMED BY: Dr. Rush (Attending) CONSENT: Informed consent was obtained prior to the procedure after discussion of the risks, benefits, and alternatives and expected outcomes were discussed with the patient; consent placed in chart. UNIVERSAL PROTOCOL: Preprocedure verification was complete. Patient verified and consents confirmed, procedure sites were identified and marked, and a timeout was called before the start of the procedure. SPECIMEN(S) REMOVED: None. ESTIMATED BLOOD LOSS: Minimal. COMPLICATIONS: None immediate. Thank you for allowing Interventional Radiology to participate in this patient's care. 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 Diagnostic visceral angiography/cone beam CT 2. Superselective transarterial embolization of the dominant right hepatic lobe tumor distribution PROCEDURE DETAILS, FINDINGS, AND PLAN: 1. Diagnostic visceral angiography/cone beam CT 2. Superselective transarterial embolization of the dominant right hepatic lobe tumor distribution Plan: -Strict bed rest for 2 hours. -Medical management of post-embolization syndrome symptoms. -F/u in the in IR clinic in 2 weeks. Please refer to the imaging tab for the full dictation final report. PROCEDURE PERFORMED BY: Dr. Rush (Attending) CONSENT: Informed consent was obtained prior to the procedure after discussion of the risks, benefits, and alternatives and expected outcomes were discussed with the patient; consent placed in chart. UNIVERSAL PROTOCOL: Preprocedure verification was complete. Patient verified and consents confirmed, procedure sites were identified and marked, and a timeout was called before the start of the procedure. SPECIMEN(S) REMOVED: None. ESTIMATED BLOOD LOSS: Minimal. COMPLICATIONS: None immediate. Thank you for allowing Interventional Radiology to participate in this patient's care. Humberto Rush MD Exchange Engineer Division of Vascular and Interventional Radiology Department [facility] Rad[facility]* Nursing Notes - Jerry Beth RN - 05/31/2021 11:40 AM EDT Interventional Radiology procedure completed with IR Attending Adri of TAE procedure. Pt tolerated procedure completed with local numbing agent and IV sedation. Mynx site with D/I dressing. Strict bedrest ordered x 2hrs. Pt to travel to [facility] floor bed [facility]. [facility]* Nursing Notes - Jerry Beth RN - 05/31/2021 11:[address] Rush notified of BP. [facility]04-18-2022 History and physical note* Franchesca Lundberg APRN-RICHARD - 05/31/2021 7:48 AM EDT Chief Complaint: I am here for a TAE. History of Present Illness: Mary Jenkins is a 80 yo female with hx of well-differentiated metastatic small bowel neuroendocrinecarcinoma to the liver status post left TAE on 03/22/21. Admitted 05/31/21 for repeat TAE procedure. Denies recent illnesses, hospital stays, or medication changes. States she took 2 doses of prednisoneat specific times prior to procedure. Denies fevers, cough, or pain. Diarrhea unchanged. Problem List: Patient Active Problem List Diagnosis Neuroendocrine tumor Neuroendocrine carcinoma metastatic to liver Medical History: Past Medical History: Diagnosis Date Arrhythmia atrial fibrillation Essential hypertension, benign History of cancer Hyperlipidemia Rheumatic fever Surgical History: Past Surgical History: Procedure Laterality Date OCCLUSION/EMBOLIZATION ENDOVASCULAR TUMORS/ORGAN ISCHEMIA/INFARCTION N/A 03/22/2021 Laterality: N/A; Surgeon: Humberto Rush MD; Location: [facility] INTERVENTIONAL RADIOLOGY (VIR) COLECTOMY PARTIAL LAPAROSCOPIC Right 03/08/2021 Laterality: Right; Surgeon: Rodrigo López MD; Location: [facility] MAIN OR PARATHYROIDECTOMY 2014 removed 2 nodules APPENDECTOMY BREAST LUMPECTOMY Left Benign per pt report; approximately age 41 CHOLECYSTECTOMY HYSTERECTOMY KNEE SURGERY ORIF WRIST Left Allergies: Allergies Allergen Reactions Contrast Dye [Ivp Dye, Iodine Containing] Anaphylaxis Takes prednisone & benadryl prior to CT scans as pre-meds Penicillin G Other reaction(s): Shortness of breath, edema Review of Systems Constitutional: Negative. HENT: Negative. Eyes: Negative. Respiratory: Negative. Cardiovascular: Negative. Gastrointestinal: Positive for diarrhea. Negative for constipation and nausea. Endocrine: Negative. Genitourinary: Negative. Musculoskeletal: Negative. Skin: Negative. Allergic/Immunologic: Negative. Neurological: Negative. Hematological: Bruises/bleeds easily. Psychiatric/Behavioral: Negative. Pulse (Heart Rate): [86] 86 BP: (170)/(74) 170/74 O2 Sat (%): [100 %] 100 % Physical Exam Constitutional: Appearance: Normal appearance. HENT: Head: Normocephalic and atraumatic. Right Ear: Tympanic membrane normal. Left Ear: Tympanic membrane normal. Nose: Nose normal. Mouth/Throat: Mouth: Mucous membranes are dry. Eyes: Extraocular Movements: Extraocular movements intact. Pupils: Pupils are equal, round, and reactive to light. Cardiovascular: Rate and Rhythm: Rhythm irregular. Pulses: Normal pulses. Heart sounds: Normal heart sounds. Pulmonary: Effort: Pulmonary effort is normal. Breath sounds: Normal breath sounds. Abdominal: General: Bowel sounds are normal. Palpations: Abdomen is soft. Musculoskeletal: General: Normal range of motion. Cervical back: Normal range of motion and neck supple. Skin: General: Skin is warm and dry. Capillary Refill: Capillary refill takes less than 2 seconds. Neurological: General: No focal deficit present. Mental Status: She is alert and oriented to person, place, and time. Psychiatric: Mood and Affect: Mood normal. Behavior: Behavior normal. Thought Content: Thought content normal. Judgment: Judgment normal. Relevant diagnostic testing and/or daily routine labwork has not been completed and reviewed. Results are pending. 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 1. 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 Octreotide drip and labs ordered. Prednisone and benedryl 1 hour prior to procedure for contrast allergy. 2. Nutrition-NPO, may have regular diet post procedure 3. Atrial fibrillation-tambocor and lopressor. Does not take eliquis at this time 4. dispo-dc 06/01 to home [facility]04-18-2022 History and physical note* Franchesca Lundberg, FINANCIAL SERVICES MANAGER-TRUCK LEASING MANAGER - 05/31/2021 7:48 AM EDT Chief Complaint: I am here for a TAE. History of Present Illness: Mary Jenkins is a 80 yo female with hx of well-differentiated metastatic small bowel neuroendocrinecarcinoma to the liver status post left TAE on 03/22/21. Admitted 05/31/21 for repeat TAE procedure. Denies recent illnesses, hospital stays, or medication changes. States she took 2 doses of prednisoneat specific times prior to procedure. Denies fevers, cough, or pain. Diarrhea unchanged. Problem List: Patient Active Problem List Diagnosis Neuroendocrine tumor Neuroendocrine carcinoma metastatic to liver Medical History: Past Medical History: Diagnosis Date Arrhythmia atrial fibrillation Essential hypertension, benign History of cancer Hyperlipidemia Rheumatic fever Surgical History: Past Surgical History: Procedure Laterality Date OCCLUSION/EMBOLIZATION ENDOVASCULAR TUMORS/ORGAN ISCHEMIA/INFARCTION N/A 03/22/2021 Laterality: N/A; Surgeon: Humberto Rush MD; [facility] INTERVENTIONAL RADIOLOGY (VIR) COLECTOMY PARTIAL LAPAROSCOPIC Right 03/08/2021 Laterality: Right; Surgeon: Rodrigo López MD; Location: [facility] MAIN OR PARATHYROIDECTOMY 2014 removed 2 nodules APPENDECTOMY BREAST LUMPECTOMY Left Benign per pt report; approximately age 41 CHOLECYSTECTOMY HYSTERECTOMY KNEE SURGERY ORIF WRIST Left Allergies: Allergies Allergen Reactions Contrast Dye [Ivp Dye, Iodine Containing] Anaphylaxis Takes prednisone & benadryl prior to CT scans as pre-meds Penicillin G Other reaction(s): Shortness of breath, edema Review of Systems Constitutional: Negative. HENT: Negative. Eyes: Negative. Respiratory: Negative. Cardiovascular: Negative. Gastrointestinal: Positive for diarrhea. Negative for constipation and nausea. Endocrine: Negative. Genitourinary: Negative. Musculoskeletal: Negative. Skin: Negative. Allergic/Immunologic: Negative. Neurological: Negative. Hematological: Bruises/bleeds easily. Psychiatric/Behavioral: Negative. Pulse (Heart Rate): [86] 86 BP: (170)/(74) 170/74 O2 Sat (%): [100 %] 100 % Physical Exam Constitutional: Appearance: Normal appearance. HENT: Head: Normocephalic and atraumatic. Right Ear: Tympanic membrane normal. Left Ear: Tympanic membrane normal. Nose: Nose normal. Mouth/Throat: Mouth: Mucous membranes are dry. Eyes: Extraocular Movements: Extraocular movements intact. Pupils: Pupils are equal, round, and reactive to light. Cardiovascular: Rate and Rhythm: Rhythm irregular. Pulses: Normal pulses. Heart sounds: Normal heart sounds. Pulmonary: Effort: Pulmonary effort is normal. Breath sounds: Normal breath sounds. Abdominal: General: Bowel sounds are normal. Palpations: Abdomen is soft. Musculoskeletal: General: Normal range of motion. Cervical back: Normal range of motion and neck supple. Skin: General: Skin is warm and dry. Capillary Refill: Capillary refill takes less than 2 seconds. Neurological: General: No focal deficit present. Mental Status: She is alert and oriented to person, place, and time. Psychiatric: Mood and Affect: Mood normal. Behavior: Behavior normal. Thought Content: Thought content normal. Judgment: Judgment normal. Relevant diagnostic testing and/or daily routine labwork has not been completed and reviewed. Results are pending. 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 1. 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 Octreotide drip and labs ordered. Prednisone and benedryl 1 hour prior to procedure for contrast allergy. 2. Nutrition-NPO, may have regular diet post procedure 3. Atrial fibrillation-tambocor and lopressor. Does not take eliquis at this time 4. 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 present chronic Anemia acute Abdominal pain, RLQ chronic Bone metastases chronic Diarrhea chronic Liver metastases chronic 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 Regional lymph node metastasis present chronic Anemia acute Abdominal pain, RLQ chronic Bone metastases chronic Diarrhea chronic Liver metastases chronic 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 Regional lymph node metastasis present chronic Anemia acute Bone metastases chronic Diarrhea chronic Liver metastases chronic 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 Regional lymph node metastasis present chronic Essential hypertension chron ic SVT (supraventricular tachycardia) chronic Encounter for screening for COVID-19 acute Anemia acute Abdominal pain, RLQ chronic Bone metastases chronic Diarrhea chronic Liver metastases chronic 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 Regional lymph node metastasis present chronic [facility] Work Phone: Evaluation note* Diagnosis Onset Date Resolution Status Anemia acute Abdominal pain, RLQ chronic Bone metastases chronic Diarrhea chronic Liver metastases chronic 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 Regional lymph node metastasis present chronic Anemia acute Abdominal pain, RLQ chronic Bone metastases chronic Diarrhea chronic Liver metastases chronic 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 Regional lymph node metastasis present chronic Anemia acute Bone metastases chronic Diarrhea chronic Liver metastases chronic 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 Regional lymph node metastasis present chronic Essential hypertension chron ic SVT (supraventricular tachycardia) chronic Encounter for screening for COVID-19 acute Anemia acute Abdominal pain, RLQ chronic Bone metastases chronic Diarrhea chronic Liver metastases chronic 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 Regional lymph node metastasis present chronic [facility] Work Phone: Evaluation note* Diagnosis Neuroendocrine carcinoma metastatic to liver- [facility]endocrine carcinoma metastatic to liver [facility] 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 [facility] Diagnosis 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 [facility] Diagnosis 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 Metastatic malignant neuroendocrine tumor to liver Secondary neuroendocrine tumor of liver [facility] Diagnosis Onset Date Resolution Status Anemia chronic Bone metastases chronic Liver metastases chronic 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 Regional lymph node metastasis present chronic Anemia chronic Bone metastases chronic Liver metastases chronic 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 Regional lymph node metastasis present chronic Abdominal pain, RLQ chronic Anemia chronic Bone metastases chronic Diarrhea chronic Liver metastases chronic Lung metastases chronic Neuroendocrine tumor chronic 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 Regional lymph node metastasis present chronic Anemia chronic Bone metastases chronic Liver metastases chronic 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 Regional lymph node metastasis present chronic [facility] Work Phone: Evaluation note* Diagnosis 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 Metastatic malignant neuroendocrine tumor to liver Secondary neuroendocrine tumor of liver [facility] Diagnosis Neuroendocrine cancer- Primary Other malignant neoplasm without specification of site [facility] Diagnosis Onset Date Resolution Status Bone metastases chronic Liver metastases chronic 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 Regional lymph node metastasis present chronic Bone metastases chronic Liver metastases chronic 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 Regional lymph node metastasis present chronic Bone metastases chronic Liver metastases chronic 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 Regional lymph node metastasis present chronic Abdominal pain, RLQ chronic Anemia chronic Bone metastases chronic Diarrhea chronic Liver metastases chronic Lung metastases chronic Neuroendocrine tumor chronic 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 Regional lymph node metastasis present chronic Bone metastases chronic Diarrhea chronic Liver metastases chronic Lung metastases chronic Neuroendocrine tumor chronic 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 Regional lymph node metastasis present chronic [facility] Work Phone: Evaluation note* Diagnosis Onset Date Resolution Status Bone metastases chronic Liver metastases chronic 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 Regional lymph node metastasis present chronic Bone metastases chronic Liver metastases chronic 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 Regional lymph node metastasis present chronic Abdominal pain, RLQ chronic Anemia chronic Bone metastases chronic Diarrhea chronic Liver metastases chronic Lung metastases chronic Neuroendocrine tumor chronic 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 Regional lymph node metastasis present chronic Bone metastases chronic Diarrhea chronic Liver metastases chronic Lung metastases chronic Neuroendocrine tumor chronic 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 Regional lymph node metastasis present chronic [facility] Work Phone: Evaluation note* Diagnosis Onset Date Resolution Status Abdominal pain, RLQ chronic Anemia chronic Bone metastases chronic Diarrhea chronic Liver metastases chronic Lung metastases chronic Neuroendocrine tumor chronic 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 Regional lymph node metastasis present chronic Bone metastases chronic Diarrhea chronic Liver metastases chronic Lung metastases chronic Neuroendocrine tumor chronic 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 Regional lymph node metastasis present chronic Achilles rupture, left acute Essential hypertension chron ic SVT (supraventricular tachycardia) chronic DVT (deep venous thrombosis) June 16, 2021 resolved Postoperative atrial fibrillation February, resolved Bone metastases chronic Diarrhea chronic Liver metastases chronic Lung metastases chronic Neuroendocrine tumor chronic 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 Regional lymph node metastasis present chronic [facility] Work Phone: Evaluation note* Diagnosis Neuroendocrine cancer Other malignant neoplasm without specification of site [facility] Neuroendocrine cancer Other malignant neoplasm without specification of site [facility] Diagnosis Neuroendocrine cancer Other malignant neoplasm without specification of site 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 Neoplastic (malignant) related fatigue [facility] 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 Neoplastic (malignant) related fatigue [facility] 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 [facility] Diagnosis Thyroid nodule- Primary Nontoxic uninodular goiter [facility] Diagnosis 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 [facility] Diagnosis Metastatic malignant neuroendocrine tumor to liver- Primary Secondary neuroendocrine tumor of liver [facility] Diagnosis Compression fracture of T7 vertebra, initial encounter (HCC)- Primary Spinal stenosis of lumbar region with neurogenic claudication Spinal stenosis, lumbar region, with neurogenic claudication Spinal stenosis of cervical region Spinal stenosis in cervical region Pathological fracture, other site, initial encounter for fracture [facility] Compression fracture of T11 vertebra, sequela [facility] Diagnosis Spinal stenosis of lumbar region with neurogenic claudication Spinal stenosis, lumbar region, with neurogenic claudication Spinal stenosis of cervical region Spinal stenosis in cervical region Pathological fracture, other site, initial encounter for fracture [facility] Diagnosis Compression fracture of T7 vertebra, initial encounter (HCC)- Primary Foraminal stenosis of lumbar region Spinal stenosis, lumbar region, without neurogenic claudication Chronic atrial fibrillation (HCC) Atrial fibrillation [facility] Diagnosis Metastatic malignant neuroendocrine tumor to liver Secondary neuroendocrine tumor of liver [facility] Diagnosis Metastatic malignant neuroendocrine tumor to liver Secondary neuroendocrine tumor of liver [facility]* Diagnosis Neuroendocrine carcinoma metastatic to liver- Primary [facility] Diagnosis Compression fracture of T7 vertebra, initial encounter (HCC) [facility] Diagnosis RUQ pain- Primary Abdominal pain, right upper quadrant Jaundice Jaundice, unspecified, not of [facility] Diagnosis Jaundice- Primary Jaundice, unspecified, not of Atrial fibrillation, chronic Atrial fibrillation [facility] Diagnosis Neuroendocrine carcinoma metastatic to liver- Primary [facility] Diagnosis Paroxysmal atrial fibrillation- Primary Atrial fibrillation Shortness of breath Palpitations [facility] Diagnosis Shortness of breath [facility] Diagnosis Other cardiac arrhythmia- Primary Shortness of breath Paroxysmal atrial fibrillation Atrial fibrillation Premature atrial complexes Supraventricular premature beats Coronary artery calcification [facility] Diagnosis Other cardiac arrhythmia- Primary Shortness of breath Paroxysmal atrial fibrillation Atrial fibrillation Premature atrial complexes Supraventricular premature beats Coronary artery calcification Shortness of breath Coronary artery calcification Shortness of breath Coronary artery calcification [facility] Diagnosis Shortness of breath Coronary artery calcification Abnormal cardiovascular stress test Other nonspecific abnormal cardiovascular system function study Shortness of breath Coronary artery calcification [facility] Diagnosis Neuroendocrine carcinoma metastatic to liver [facility] Neuroendocrine carcinoma metastatic to liver [facility] Diagnosis Neuroendocrine carcinoma metastatic to liver [facility] Diagnosis Neuroendocrine carcinoma metastatic to liver- Primary [facility] Diagnosis Thyroid nodule- Primary Nontoxic uninodular goiter [facility] Diagnosis Neuroendocrine carcinoma metastatic to liver- Primary [facility] Diagnosis Neuroendocrine carcinoma metastatic to liver- Primary [facility] Diagnosis Essential hypertension- Primary Unspecified essential hypertension Paroxysmal atrial fibrillation Atrial fibrillation Premature atrial complexes Supraventricular premature beats Coronary artery calcification [facility] Diagnosis Neuroendocrine carcinoma metastatic to liver- Primary [facility] Diagnosis Thyroid nodule- Primary Nontoxic uninodular goiter Neuroendocrine carcinoma metastatic to liver Contrast media allergy Allergy, unspecified not elsewhere classified [facility] Diagnosis Neuroendocrine carcinoma metastatic to liver [facility] Diagnosis Neuroendocrine carcinoma metastatic to liver [facility] Diagnosis 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 Neuroendocrine cancer Other malignant neoplasm without specification of site [facility] Diagnosis 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 [facility] 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 [facility] Diagnosis Neuroendocrine cancer- Primary Other malignant neoplasm without specification of site [facility] Neuroendocrine cancer- Primary Other malignant neoplasm without specification of site 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 [facility] Diagnosis 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 Neuroendocrine cancer Other malignant neoplasm without specification of site [facility] Diagnosis 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 Alopecia Alopecia, unspecified Diarrhea, unspecified type [facility] Diagnosis Essential hypertension- Primary Unspecified essential hypertension Paroxysmal atrial fibrillation Atrial fibrillation Coronary artery calcification 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 Shortness of breath [facility] Diagnosis Neuroendocrine cancer- Primary Other malignant neoplasm without specification of site [facility] Neuroendocrine cancer- Primary Other malignant neoplasm without specification of site 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 [facility] Diagnosis 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 [facility] Diagnosis 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 [facility] Diagnosis 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 Avoid anti-inflammatory such as ibuprofen or Aleve as you are on Eliquis. If you felt that the Lidoderm patch was helpful you can get them [id number] (4% extra strength Salonpas). If your pain becomes too bad or you develop progressive or worsening symptoms specially any new numbness or weakness of the extremities please return to the emergency room. As we discussed please take a stool softener or MiraLAX while taking pain medicines you do not suffer from opioid-induced constipation.[facility] Work Phone: Hospital Discharge instructions* Attachments The following attachments cannot be sent through Care Everywhere. * Cardiac Cath [facility] after - Leg Site ([facility] ([place]) * [facility]iac Cath [facility] - Wrist [facility] ([place] Consultation (Routine) - New Request Specialty Diagnoses / Procedures Referred By Allison yuen Referred To Contact Endocrinology, Diabetes & Metabolism Diagnoses Neuroendocrine tumor Britany Jane PAC [address] [address] Referral ID Status Reason Start Date Expiration Date V isits Requested Visits Authorized [id number] New Request 10/07/2022 11/01/2023 1 1 * Radiology (Routine) - New Request Specialty Diagnoses / Procedures Referred By Allison yuen Referred To Contact Diagnoses Neuroendocrine tumor Procedures US THYROID Britany Jane PAC [address] [address] Referral ID Status Reason Start Date Expiration Date V isits Requested Visits Authorized [id number] New Request 10/07/2022 11/01/2023 1 1 * MRI/CAT Scan (Routine) - New Request Specialty Diagnoses / Procedures Referred By Contac t Referred To Contact Diagnoses Neuroendocrine tumor Procedures CT CHEST WITHOUT CONTRAST CHG DIAGNOSTIC COMPUTED TOMOGRAPHY THORAX W/O CNTRST Britany Jane [facility] [address] [facility] [address] [place] [address] Referral ID Status Reason Start Date Expiration Date V isits Requested Visits Authorized [id number] New Request 10/07/2022 11/01/2023 1 1 * MRI/CAT Scan (Routine) - New Request Specialty Diagnoses / Procedures Referred By Contac t Referred To Contact Diagnoses Neuroendocrine tumor Procedures MRI ABDOMEN/PELVIS WITHOUT AND WITH CONTRAST [place] MRI, ABDOMEN, COMBO [place] MRI, PELVIS, COMBO Britany Jane, [facility] [address] [facility] [address] [place] [address] Referral ID Status Reason Start Date Expiration Date V isits Requested Visits Authorized [id number] New Request 10/07/2022 11/01/2023 1 1 [facility] Unlisted Procedure Code (Routine) - New Request Specialty Diagnoses / Procedures Referred By Contac t Referred To Contact Procedures DVT/VTE RISK ASSESSMENT Tawana Deluca MD [address] [place] [address] Referral ID Status Reason Start Date Expiration Date V isits Requested Visits Authorized [id number] New Request 08/12/2023 09/05/2024 1 1 [facility] Consultation (Routine) - New Request Specialty Diagnoses / Procedures Referred By Contac t Referred To Contact Cardiovascular Medicine Diagnoses Atrial fibrillation, chronic Tawana Deluca MD [address] [place] [phone] Referral ID Status Reason Start Date Expiration Date V isits Requested Visits Authorized [id number] New Request 08/15/2023 09/08/2024 1 1 Scheduling Instructions Please schedule this patient in the Department of Cardiology. * (Routine) Specialty Diagnoses / Procedures Referred By Contac t Referred To Contact HILDA Peres [address] [place] [phone] Referral ID Status Reason Start Date Expiration Date Visits Re quested Visits Authorized * (Routine) Specialty Diagnoses / Procedures Referred By Contac t Referred To Contact HILDA Peres [address] [place] [phone] Referral ID Status Reason Start Date Expiration Date Visits Re quested Visits Authorized * Radiology (Routine) - New Request Specialty Diagnoses / Procedures Referred By Contac t Referred To Contact Procedures US ABDOMEN RUQ/LIVER/GB US ABDOMEN RUQ/LIVER/GB Tawana Deluca MD [address] [address] Referral ID Status Reason Start Date Expiration Date V isits Requested Visits Authorized [id number] New Request 08/12/2023 09/05/2024 1 1 [facility] for referral (narrative)No reason for referral information [facility] Work Phone: Reason for visit Narrative* Auth/Cert Specialty Diagnoses / Procedures Referred By Contac t Referred To Contact Diagnoses Neuroendocrine carcinoma metastatic to liver Neuroendocrine carcinoma metastatic to liver [C7A.8, C7B.8] Procedures [place] VASCULAR EMBOLIZE/OCCLUDE ORGAN TUMOR INFARCT OCCLUSION/EMBOLIZATION ENDOVASCULAR TUMORS/ORGAN ISCHEMIA/INFARCTION Referral ID Status Reason Start Date Expiration Date Visits Re quested Visits Authorized [id number] 1 1 [facility] for visit Narrative* Diagnostic Procedure Only (Routine) - Closed Specialty Diagnoses / Procedures Referred By Contac t Referred To Contact XR IMAGING Diagnoses Compression fracture of T11 vertebra, sequela Procedures XR THORACIC LIMITED 2V AP/LAT RADEX SPINE THORACIC 2 VIEWS Eric Rincon MD [address] [place] [address] [place] [address] Referral ID Status Reason Start Date Expiration Date V isits Requested Visits Authorized [id number] Closed Auto-Generate d Referral 04/20/2023 05/19/2024 1 1 [facility] for visit Narrative* Diagnostic Procedure Only (Routine) - Closed Specialty Diagnoses / Procedures Referred By Contac t Referred To Contact XR IMAGING Diagnoses Compression fracture of T7 vertebra, initial encounter (HCC) Procedures XR LUMBAR LIMITED 2V AP/LAT RADEX SPINE LUMBOSACRAL 2/3 VIEWS Eric Rincon MD [address] [place] [address] [place] [address] Referral ID Status Reason Start Date Expiration Date V isits Requested Visits Authorized [id number] Closed Auto-Generate d Referral 06/06/2023 07/05/2024 1 1 [facility] for visit Narrative* MRI/CAT Scan (Routine) - New Request Specialty Diagnoses / Procedures Referred By Contac t Referred To Contact Diagnoses Neuroendocrine carcinoma metastatic to liver Procedures CT CHEST WITHOUT CONTRAST CHG DIAGNOSTIC COMPUTED TOMOGRAPHY THORAX W/O CNTRST Clint Diaz, FINANCIAL SERVICES MANAGER-TRUCK LEASING MANAGER [address] [place] [address] Phone: tel: fax: Referral ID Status Reason Start Date Expiration Date V isits Requested Visits Authorized [id number] New Request 03/20/2024 04/14/2025 1 1 [facility] for visit Narrative* MRI/CAT Scan (Routine) - New Request Specialty Diagnoses / Procedures Referred By Contac t Referred To Contact Diagnoses Neuroendocrine carcinoma metastatic to liver Procedures MRI ABDOMEN WITH AND WITHOUT CONTRAST CHG MRI ABDOMEN W/O CONTRAST FLWD BY W/CONTRAST Clint Diaz, PELON-RICHARD [address] [place] [address] Phone: tel: fax: Referral ID Status Reason Start Date Expiration Date V isits Requested Visits Authorized [id number] New Request 03/20/2024 04/14/2025 1 1 [facility] for visit Narrative* Radiology (Routine) - New Request Specialty Diagnoses / Procedures Referred By Contac t Referred To Contact Diagnoses Neuroendocrine tumor Neuroendocrine cancer Procedures NUC PET HEAD TO THIGH Erwin David MD [address] [address] Phone: tel: fax: Referral ID Status Reason Start Date Expiration Date V isits Requested Visits Authorized [id number] New Request 06/12/2024 07/07/2025 1 1 [facility] for visit Narrative* Radiology (Routine) - New Request Specialty Diagnoses / Procedures Referred By Contac t Referred To Contact Diagnoses Neuroendocrine tumor Neuroendocrine cancer Procedures NUC LARRY-177 DOTATATE THERAPY CHG RP LOCLZJ SHAHID PLNR WHOLE BODY 2+ DAYS IMAGING CHG BASIC RADIATION DOSIMETRY CALCULATION CHG RP THERAPY INTRAVENOUS ADMINISTRATION CHG NONCARDIAC VASCULAR FLOW IMAGING Erwin David MD [address] [address] Phone: tel: fax: Referral ID Status Reason Start Date Expiration Date V isits Requested Visits Authorized [id number] New Request 06/12/2024 07/07/2025 1 1 [facility] for visit Narrative* Radiology (Routine) - New Request Specialty Diagnoses / Procedures Referred By Contac t Referred To Contact Diagnoses Neuroendocrine tumor Neuroendocrine cancer Procedures NUC LARRY-177 DOTATATE THERAPY CHG RP LOCLZJ SHAHID PLNR WHOLE BODY 2+ DAYS IMAGING CHG BASIC RADIATION DOSIMETRY CALCULATION CHG RP THERAPY INTRAVENOUS ADMINISTRATION CHG NONCARDIAC VASCULAR FLOW IMAGING Sukrithan, Erwin K, MD [address] [facility] [address] [place] [address] Phone: tel: fax: Referral ID Status Reason Start Date Expiration Date V isits Requested Visits Authorized [id number] New Request 06/12/2024 07/07/2025 1 1 [facility] Radiology (Routine) - New Request Specialty Diagnoses / Procedures Referred By Contac t Referred To Contact Diagnoses Neuroendocrine tumor Neuroendocrine cancer Procedures NUC LARRY-177 DOTATATE THERAPY CHG RP LOCLZJ SHAHID PLNR WHOLE BODY 2+ DAYS IMAGING CHG BASIC RADIATION DOSIMETRY CALCULATION CHG RP THERAPY INTRAVENOUS ADMINISTRATION CHG NONCARDIAC VASCULAR FLOW IMAGING Erwin David MD [address] [place] [address] Phone: tel: fax: Referral ID Status Reason Start Date Expiration Date V isits Requested Visits Authorized [id number] New Request 06/12/2024 07/07/2025 1 1 [facility] Reason for Referral Specialty Diagnoses / Procedures Referred By Contac t Referred To Contact Procedures NO MECHANICAL DVT PROPHYLAXIS Hussein Mcpherson APRN-CNP [address] [place] [address] Referral ID Status Reason Start Date Expiration Date V isits Requested Visits Authorized [id number] New Request 05/31/2021 06/25/2022 1 1 Specialty Diagnoses / Procedures Referred By Contac t Referred To Contact Procedures LOW RISK - NO PHARMACOLOGICAL DVT PROPHYLAXIS Hussein Mcpherson APRN-CNP [address] [place] [address] Referral ID Status Reason Start Date Expiration Date V isits Requested Visits Authorized [id number] New Request 05/31/2021 06/25/2022 1 1 Specialty Diagnoses / Procedures Referred By Contac t Referred To Contact Procedures DVT/VTE RISK ASSESSMENT Mcpherson, Hussein S, FINANCIAL SERVICES MANAGER-TRUCK LEASING MANAGER [address] [place] [address] Referral ID Status Reason Start Date Expiration Date V isits Requested Visits Authorized [id number] New Request 05/31/2021 06/25/2022 1 1 Specialty Diagnoses / Procedures Referred By Contac t Referred To Contact Diagnoses Neuroendocrine tumor Procedures MRI ABDOMEN/PELVIS WITHOUT AND WITH CONTRAST [place] MRI, ABDOMEN, COMBO [place] MRI, PELVIS, COMBO Britany Jane PA-C [address] [address] Referral ID Status Reason Start Date Expiration Date V isits Requested Visits Authorized [id number] New Request 06/29/2021 07/24/2022 1 1 Specialty Diagnoses / Procedures Referred By Contac t Referred To Contact Diagnoses Neuroendocrine tumor Procedures CT PE STUDY [place] CT ANGIO, CHEST (NON-CORON), COMBO, INCL IMG PROC Britany Jane PA-C [address] [address] Referral ID Status Reason Start Date Expiration Date V isits Requested Visits Authorized [id number] New Request 06/29/2021 07/24/2022 1 1 Specialty Diagnoses / Procedures Referred By Contac t Referred To Contact Diagnoses 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 Procedures NUC PET NEUROENDOCRINE CHG NUC THERAPY HYPERTHYROID SUBSEQUENT Erwin David MD [address] [address] Referral ID Status Reason Start Date Expiration Date V isits Requested Visits Authorized [id number] New Request 08/27/2021 09/21/2022 1 1 Specialty Diagnoses / Procedures Referred By Contac t Referred To Contact Diagnoses Neuroendocrine cancer Procedures CT CHEST WITHOUT CONTRAST CHG DIAGNOSTIC COMPUTED TOMOGRAPHY THORAX W/O CNTRST Britany Jane PA-C [address] [address] Referral ID Status Reason Start Date Expiration Date V isits Requested Visits Authorized [id number] New Request 02/18/2022 03/15/2023 1 1 Specialty Diagnoses / Procedures Referred By Contac t Referred To Contact Diagnoses Neuroendocrine cancer Procedures MRI ABDOMEN/PELVIS WITHOUT AND WITH CONTRAST [place] MRI, ABDOMEN, COMBO [place] MRI, PELVIS, COMBO Buck, Britany, PA-C [address] [place] [address] Referral ID Status Reason Start Date Expiration Date V isits Requested Visits Authorized [id number] New Request 02/18/2022 03/15/2023 1 1 Specialty Diagnoses / Procedures Referred By Contac t Referred To Contact Diagnoses Neuroendocrine cancer Procedures CT CHEST WITHOUT CONTRAST CHG DIAGNOSTIC COMPUTED TOMOGRAPHY THORAX W/O CNTRST Buck, Britany, PAC [address] [place] [address] Specialty Diagnoses / Procedures Referred By Contac t Referred To Contact Diagnoses Neuroendocrine cancer Procedures MRI ABDOMEN/PELVIS WITHOUT AND WITH CONTRAST [place] MRI, ABDOMEN, COMBO [place] MRI, PELVIS, COMBO Buck, Britany, PAC [address] [place] [address] Specialty Diagnoses / Procedures Referred By Contac t Referred To Contact Diagnoses Neuroendocrine tumor Procedures US THYROID Buck, Britany, PAC [address] [place] [phone] Referral ID Status Reason Start Date Expiration Date V isits Requested Visits Authorized [id number] New Request 10/07/2022 11/01/2023 1 1 Specialty Diagnoses / Procedures Referred By Contac t Referred To Contact Diagnoses Neuroendocrine tumor Procedures CT CHEST WITHOUT CONTRAST CHG DIAGNOSTIC COMPUTED TOMOGRAPHY THORAX W/O CNTRST Buck, Britany, PAC [address] [place] [phone] Referral ID Status Reason Start Date Expiration Date V isits Requested Visits Authorized [id number] New Request 10/07/2022 11/01/2023 1 1 Specialty Diagnoses / Procedures Referred By Contac t Referred To Contact Diagnoses Neuroendocrine tumor Procedures MRI ABDOMEN/PELVIS WITHOUT AND WITH CONTRAST [place] MRI, ABDOMEN, COMBO [place] MRI, PELVIS, COMBO Britany Jane, PAC [address] [address] Referral ID Status Reason Start Date Expiration Date V isits Requested Visits Authorized [id number] New Request 10/07/2022 11/01/2023 1 1 Specialty Diagnoses / Procedures Referred By Contac t Referred To Contact Diagnoses Metastatic malignant neuroendocrine tumor to liver Procedures NUC PET NEUROENDOCRINE CHG NUC THERAPY HYPERTHYROID SUBSEQUENT Buck, Britany, PAC [address] [address] Referral ID Status Reason Start Date Expiration Date V isits Requested Visits Authorized [id number] New Request 03/31/2023 04/24/2024 1 1 Specialty Diagnoses / Procedures Referred By Contac t Referred To Contact MR IMAGING Diagnoses Pathological fracture, other site, initial encounter for fracture Procedures MRI THORACIC SPINE WO IVCON MRI SPINAL CANAL THORACIC W/O CONTRAST Eric Villagomez MD [address] [place] [address] [place] [address] Referral ID Status Reason Start Date Expiration Date Visits Requested Visits Authorized [id number] Pending Review Auto-Generat ed Referral 04/25/2023 05/24/2024 1 1 Specialty Diagnoses / Procedures Referred By Contac t Referred To Contact MR IMAGING Diagnoses Spinal stenosis of cervical region Procedures MRI CERVICAL SPINE WO IVCON MRI SPINAL CANAL CERVICAL W/O CONTRAST Eric Villagomez MD [address] [place] [address] [place] [address] Referral ID Status Reason Start Date Expiration Date Visits Requested Visits Authorized [id number] Pending Review Auto-Generat ed Referral 04/25/2023 05/24/2024 1 1 Specialty Diagnoses / Procedures Referred By Contac t Referred To Contact MR IMAGING Diagnoses Spinal stenosis of lumbar region with neurogenic claudication Procedures MRI LUMBAR SPINE WO IVCON MRI SPINAL CANAL LUMBAR W/O CONTRAST MATERIAL Eric Rincon MD [address] [facility] [place] [address] [place] [address] Referral ID Status Reason Start Date Expiration Date Visits Requested Visits Authorized [id number] Pending Review Auto-Generat ed Referral 04/25/2023 05/24/2024 1 1 Specialty Diagnoses / Procedures Referred By Contac t Referred To Contact XR IMAGING Diagnoses Compression fracture of T11 vertebra, sequela Procedures XR THORACIC LIMITED 2V AP/LAT RADEX SPINE THORACIC 2 VIEWS Eric Rincon MD [address] [facility] [place] [address] [place] [address] Referral ID Status Reason Start Date Expiration Date V isits Requested Visits Authorized [id number] Closed Auto-Generate d Referral 04/20/2023 05/19/2024 1 1 Referral ID Status Reason Start Date Expiration Date V isits Requested Visits Authorized [id number] Closed Auto-Generate d Referral 04/25/2023 05/24/2024 1 1 Referral ID Status Reason Start Date Expiration Date V isits Requested Visits Authorized [id number] Closed Auto-Generate d Referral 04/25/2023 05/24/2024 1 1 Referral ID Status Reason Start Date Expiration Date V isits Requested Visits Authorized [id number] Closed Auto-Generate d Referral 04/25/2023 05/24/2024 1 1 Specialty Diagnoses / Procedures Referred By Contac t Referred To Contact Pain Management Diagnoses Compression fracture of T7 vertebra, initial encounter (HCC) Procedures CONSULT TO PAIN MGT Eric Rincon MD [address] [facility] [place] [address] Referral ID Status Reason Start Date Expiration Date Visits Requested Visits Authorized [id number] Ref Not Required PCP Requested Referral 06/06/2023 06/05/2024 1 1 Specialty Diagnoses / Procedures Referred By Contac t Referred To Contact [facility] Diagnoses Compression fracture of T7 vertebra, initial encounter (HCC) Procedures CONSULT TO PHYSICAL THERAPY PHYSICAL THERAPY EVALUATION HIGH COMPLEX 45 MINS rEic Rincon MD [address] [place] [address] [facility] [address] [place] [address] Referral ID Status Reason Start Date Expiration Date Visits Requested Visits Authorized [id number] Pending Review PCP Requested Referral Auto-Generate d Referral 06/06/2023 06/05/2024 99 [phone] Specialty Diagnoses / Procedures Referred By Contac t Referred To Contact XR IMAGING Diagnoses Compression fracture of T7 vertebra, initial encounter ([facility]) Procedures XR LUMBAR LIMITED 2V AP/LAT RADEX SPINE LUMBOSACRAL 2/3 VIEWS Eric Rincon MD [address] [place] [address] [place] [address] Referral ID Status Reason Start Date Expiration Date Visits Requested Visits Authorized [id number] Pending Review Auto-Generat ed Referral 06/06/2023 07/05/2024 1 1 Specialty Diagnoses / Procedures Referred By Contac t Referred To Contact XR IMAGING Diagnoses Compression fracture of T7 vertebra, initial encounter ([facility]) Procedures XR THORACIC LIMITED 2V AP/LAT RADEX SPINE THORACIC 2 VIEWS Eric Rincon MD [address] [place] [address] [place] [address] Referral ID Status Reason Start Date Expiration Date Visits Requested Visits Authorized [id number] Pending Review Auto-Generat ed Referral 06/06/2023 07/05/2024 1 1 Specialty Diagnoses / Procedures Referred By Contac t Referred To Contact Diagnoses Metastatic malignant neuroendocrine tumor to liver Procedures NUC PET NEUROENDOCRINE CHG NUC THERAPY HYPERTHYROID SUBSEQUENT Britany Jane PA-C [address] [facility] [address] [place] [address] Specialty Diagnoses / Procedures Referred By Contac t Referred To Contact Diagnoses Neuroendocrine carcinoma metastatic to liver Procedures MRI ABDOMEN WITH AND WITHOUT CONTRAST CHG MRI ABDOMEN W/O & W/CONTRAST MATERIAL Ohl, Doris M, FINANCIAL SERVICES MANAGER-TRUCK LEASING MANAGER [address] [place] [address] Referral ID Status Reason Start Date Expiration Date V isits Requested Visits Authorized [id number] New Request 06/30/2023 07/24/2024 1 1 Specialty Diagnoses / Procedures Referred By Contac t Referred To Contact Diagnoses Neuroendocrine carcinoma metastatic to liver Procedures CT CHEST WITHOUT CONTRAST CHG DIAGNOSTIC COMPUTED TOMOGRAPHY THORAX W/O CNTRST Doris Maharaj, FINANCIAL SERVICES MANAGER-TRUCK LEASING MANAGER [address] [place] [address] Referral ID Status Reason Start Date Expiration Date V isits Requested Visits Authorized [id number] New Request 06/30/2023 07/24/2024 1 1 Specialty Diagnoses / Procedures Referred By Contac t Referred To Contact Diagnoses Shortness of breath Procedures NUC MYOCARD PERF STRESS MIBI PHARM CHG MYOCARDIAL SPECT MULTIPLE STUDIES CHG MYOCARDIAL SPECT MULTIPLE STUDIES-T [place] CV STRS TST XERS&/OR RX CONT ECG I&R ONLY [place] CV STRS TST XERS&/OR RX CONT ECG W/O I&R Tiffany Babin MBBS [address] [address] Referral ID Status Reason Start Date Expiration Date V isits Requested Visits Authorized [id number] New Request 11/01/2023 11/25/2024 1 1 Specialty Diagnoses / Procedures Referred By Contac t Referred To Contact Diagnoses Paroxysmal atrial fibrillation Palpitations Procedures MOBILE CARDIAC TELEMETRY Tiffany Babin MBBS [address] [address] Referral ID Status Reason Start Date Expiration Date V isits Requested Visits Authorized [id number] New Request 11/01/2023 11/25/2024 1 1 Specialty Diagnoses / Procedures Referred By Contac t Referred To Contact Diagnoses Paroxysmal atrial fibrillation Procedures ECG Tiffany Babin MBBS [address] [address] Referral ID Status Reason Start Date Expiration Date V isits Requested Visits Authorized [id number] New Request 11/01/2023 11/25/2024 1 1 Specialty Diagnoses / Procedures Referred By Contac t Referred To Contact Diagnoses Shortness of breath Coronary artery calcification Procedures CASE REQUEST - CARDIAC CATH Tiffany Babin MBBS [address] [place] [phone] Referral ID Status Reason Start Date Expiration Date V isits Requested Visits Authorized [id number] New Request 12/08/2023 01/01/2025 1 1 Specialty Diagnoses / Procedures Referred By Contac t Referred To Contact Diagnoses Other cardiac arrhythmia Procedures ECG Tiffany Babin MBBS [address] [place] [phone] Referral ID Status Reason Start Date Expiration Date V isits Requested Visits Authorized [id number] New Request 12/08/2023 01/01/2025 1 1 Specialty Diagnoses / Procedures Referred By Contac t Referred To Contact Procedures ECG Fifi Concepcion MD [address] [place] [address] Referral ID Status Reason Start Date Expiration Date V isits Requested Visits Authorized [id number] New Request 12/15/2023 01/08/2025 1 1 Specialty Diagnoses / Procedures Referred By Contac t Referred To Contact Diagnoses Thyroid nodule Procedures [facility] Esme Perez MD [address] [place] [address] Referral ID Status Reason Start Date Expiration Date V isits Requested Visits Authorized [id number] New Request 01/10/2024 02/03/2025 1 1 Specialty Diagnoses / Procedures Referred By Contac t Referred To Contact Diagnoses Neuroendocrine carcinoma metastatic to liver Procedures MRI ABDOMEN WITH AND WITHOUT CONTRAST CHG MRI ABDOMEN W/O CONTRAST FLWD BY W/CONTRAST Clint Daiz, FINANCIAL SERVICES MANAGER-TRUCK LEASING MANAGER [address] [place] [address] Referral ID Status Reason Start Date Expiration Date V isits Requested Visits Authorized [id number] New Request 03/20/2024 04/14/2025 1 1 Specialty Diagnoses / Procedures Referred By Contac t Referred To Contact Diagnoses Neuroendocrine carcinoma metastatic to liver Procedures CT CHEST WITHOUT CONTRAST CHG DIAGNOSTIC COMPUTED TOMOGRAPHY THORAX W/O Clint Salguero, FINANCIAL SERVICES MANAGER-TRUCK LEASING MANAGER [address] [place] [address] Referral ID Status Reason Start Date Expiration Date V isits Requested Visits Authorized [id number] New Request 03/20/2024 04/14/2025 1 1 Advance Directives No Advanced Directives Records FoundLatest Code Status on File Code Status Date Activated Date Inactivated Comments Full Code 03/08/2021 12:32 PM Advance Directive Response Recorded Date/ Time Advance Directives on File No June 08, 2021 11:27am Advance Directives No June 08, 022 11:27am Living Will No June 16, 2021 1: 39pm Power of Reverberatory Furnace Operator No June 16, 2021 1:39pm Advance Directive Response Recorded Date/ Time Advance Directives on File No June 08, 2021 11:27am Advance Directives No June 08, 022 11:27am Living Will Yes June 19, 2021 12 :03pm Power of Reverberatory Furnace Operator Yes June 19, 2021 12:03pm Latest Code Status on File Code Status Date Activated Date Inactivated Comments Full Code 03/08/2021 12:32 PM Advance Directive Response Recorded Date/ Time Advance Directives on File No 2021 9:36am Advance Directives No October 9:36am Living Will Yes October 26, 2021 9:36am Power of Reverberatory Furnace Operator Yes October 9:36am Latest Code Status on File Code Status Date Activated Date Inactivated Comments Full Code 03/08/2021 12:32 PM Advance Directive Response Recorded Date/ Time Advance Directives on File No May 05, 2022 10:20am Advance Directives No May 05, 023 10:20am Living Will Yes May 05, 2022 10:20am Power of Reverberatory Furnace Operator Yes May 05 10:20am Advance Directive Response Recorded Date/ Time Advance Directives on File No June 132022 11:33am Name of Medical Power of Reverberatory Furnace Operator Elder roldan July 16, 2022 12:06pm Advance Directives No June 30 11:33am Living Will Yes July 16, 2022 1 2:06pm Power of Reverberatory Furnace Operator Yes July 16, 2022 12:06pm Latest Code Status on File Code Status Date Activated Date Inactivated Comments Full Code 03/08/2021 12:32 PM Advance Directive Response Recorded Date/ Time Advance Directives on File No 2023 3:48pm Advance Directives No March 3:48pm Living Will No March 024 3:48pm Power of Reverberatory Furnace Operator No April 13, 2023 3:48pm Advance Directive Response Recorded Date/ Time Advance Directives on File No 2023 4:48pm Advance Directives No March 4:48pm Living Will No March, 024 4:48pm Power of Reverberatory Furnace Operator No April 13, 2023 4:48pm Date Activated Date Inactivated Comments 03/08/2021 12:32 PM Date Activated Date Inactivated Comments 03/08/2021 12:32 PM Date Activated Date Inactivated Comments 08/12/2023 3:42 AM Date Activated Date Inactivated Comments 08/12/2023 2:07 AM 08/12/2023 3:42 AM Date Activated Date Inactivated Comments 03/08/2021 12:32 PM 08/12/2023 2:07 AM Date Activated Date Inactivated Comments 08/12/2023 3:42 AM Date Activated Date Inactivated Comments 08/12/2023 2:07 AM 08/12/2023 3:42 AM Date Activated Date Inactivated Comments 03/08/2021 12:32 PM 08/12/2023 2:07 AM Advance Directive Response Recorded Date/ Time Living Will No July 06, 2023 2 :53pm Do you have a Healthcare Power of Reverberatory Furnace Operator? No July 06, 2023 2:53pm Do you have a Healthcare Power of Reverberatory Furnace Operator? 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 Anemia Abdominal pain, RLQ Bone metastases Diarrhea Liver metastases 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 Anemia Abdominal pain, RLQ Bone metastases Diarrhea Liver metastases 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 Anemia Bone metastases Diarrhea Liver metastases 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 Essential hypertension SVT (supraventricular tachycardia) Encounter for screening for COVID-19 Anemia Abdominal pain, RLQ Bone metastases Diarrhea Liver metastases 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 Chief Complaint COVID TEST 4WKS LABS SANDOSTATIN INJ COVID TEST 4 WKS - LABS - SANDOSTATIN Hemoptysis 4 WKS - LABS - SANDOSTATIN LAR 6 M FU (PT RS FROM 3/2) COVID TEST STAGING LIVER METS LEG abd pain Reason for Visit Anemia Abdominal pain, RLQ Bone metastases Diarrhea Liver metastases 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 Anemia Abdominal pain, RLQ Bone metastases Diarrhea Liver metastases 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 Anemia Bone metastases Diarrhea Liver metastases 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 Essential hypertension SVT (supraventricular tachycardia) Encounter for screening for COVID-19 Anemia Abdominal pain, RLQ Bone metastases Diarrhea Liver metastases 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 Chief Complaint 4 WKS - LABS - KRISTAL STATIN 4 WKS - LABS - SANDOSTATIN 4WKS LABS SANDOSTATIN 4 WKS - LABS - SANDOSTATIN LAR STAGING LIVER METS M85.89 Other specified disorders of bone density a Reason for Visit Anemia Bone metastases Liver metastases 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 Anemia Bone metastases Liver metastases 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 Abdominal pain, RLQ Anemia Bone metastases Diarrhea Liver metastases Lung metastases Neuroendocrine tumor 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 Anemia Bone metastases Liver metastases 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 Chief Complaint LABS - SANDOSTATIN 4WKS LABS SANDOSTATIN 1MO LABS 1MO -LABS SCREENING XRAY LEFT ANKLE 4WKS LABS SANDOSTATIN STAGING LIVER METS LABS AND 24 HOUR URINE Reason for Visit Bone metastases Liver metastases 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 Liver metastases 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 Liver metastases 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 Abdominal pain, RLQ Anemia Bone metastases Diarrhea Liver metastases Lung metastases Neuroendocrine tumor 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 Diarrhea Liver metastases Lung metastases Neuroendocrine tumor 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 Chief Complaint 4WKS LABS SANDOSTATI N 1MO LABS 1MO -LABS SCREENING XRAY LEFT ANKLE 4WKS LABS SANDOSTATIN STAGING LIVER METS LABS AND 24 HOUR URINE Reason for Visit Bone metastases Liver metastases 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 Liver metastases 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 Abdominal pain, RLQ Anemia Bone metastases Diarrhea Liver metastases Lung metastases Neuroendocrine tumor 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 Diarrhea Liver metastases Lung metastases Neuroendocrine tumor 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 Chief Complaint 1MO -LABS SCREENING XRAY LEFT ANKLE 4WKS LABS SANDOSTATIN LABS AND 24 HOUR URINE LT ANKLE PAIN EXTENDING TO HEEL/FOOT LEFT ANKLE 6 M FU STAGING LIVER METS 3 MO - LABS - SANDOSTATIN fall Reason for Visit Abdominal pain, RLQ Anemia Bone metastases Diarrhea Liver metastases Lung metastases Neuroendocrine tumor 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 Diarrhea Liver metastases Lung metastases Neuroendocrine tumor 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 Achilles rupture, left Essential hypertension SVT (supraventricular tachycardia) DVT (deep venous thrombosis) Postoperative atrial fibrillation Bone metastases Diarrhea Liver metastases Lung metastases Neuroendocrine tumor 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 Chief Complaint 1 Y FU 3 MO - LABS - SANDOSTATIN 3 MONTH, LAB, SANDOSTATIN STAGING LIVER METS SCREENING Reason for Visit Essential hypertensi on SVT (supraventricular tachycardia) DVT (deep venous thrombosis) Postoperative atrial fibrillation Bone metastases Diarrhea Liver metastases Lung metastases Neuroendocrine tumor 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 Diarrhea Liver metastases 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 Chief Complaint Admit Date EORDER- LAB AND XRAY April 01, 2024 12:41pm 6 M FU June 06, 2024 1:3 6pm fever June 11, 2024 7:1 2pm LABS July 15, 2024 4:05p m Reason for Visit Admit Date Dyspnea on exertion June 06, 2024 1:3 6pm Essential hypertension June 06, 2024 1:36pm SVT (supraventricular tachycardia) June 06, 2024 1:36pm DVT (deep venous thrombosis) June 06, 2024 1:36pm Family History No Family History Records Found Relationship Condition Age at Onset Recorded Date/T kirti father Coronary artery disease Unknown Cardiac disease Unknown Hypertension Unknown mother Hypertension Unknown brother Hypertension Unknown sister Hypertension Unknown daughter Malignant neoplasm of thyroid gland Unkno wn Summary Purpose Additional Source Comments Scheduled Active and Recently Administ ered Medications (unrecognized section and content) Medication Order 05/30/2021 05/31/2021 06/01/2021 allopurinol (ZYLOPRIM) tablet 300 mg (COMPLETED) 300 mg, Oral, ONCE, 1 dose, On Mon05/31/21 at 0745, Start BRUNILDA. 0938 (Given - Provider: Jaida Graham RN) amLODIPine (NORVASC) tablet 5 mg 5 mg, Oral, DAILY EVERY MORNING, First dose on Mon05/31/21 at 0900, Until Discontinued 0937 (Not Given - Provider: Jaida Graham RN - Reason: Other) 08 (Given - Provider: Doris Herrera, RN) atorvastatin (LIPITOR) tablet 10 mg 10 mg, Oral, DAILY EVERY MORNING, First dose on Mon06/01/21 at 0900, Until Discontinued 08 (Given - Provid er: Doris Herrera RN) ciprofloxacin (CIPRO) 400 mg in dextrose 5% premix IVPB (COMPLETED) 400 mg, Intravenous, Administer over 60 Minutes, EVERY 12 HOURS NON-STANDARD, 3 doses, First dose on Mon05/31/21 at 0745, Last dose on Mon06/01/21 at 0745, First dose prior to angio. 0943 ($$New Bag$$ - Provider: Jaida Graham RN)1046 (Stopped - Provider: Jyoti Verma RN)194 ($$New Bag$$ - Provider: Alejandrina Hopkins RN)2047 (Stopped - Provider: Alejandrina Hopkins RN) 08 ($$New Bag$$ - Provider: Doris Herrera, DOUG) diphenhydrAMINE (BENADRYL) injection 50 mg (COMPLETED) 50 mg, Intravenous, ONCE, 1 dose, On Mon05/31/21 at 0845 1030 (Given - Provider: Jaida Graham RN) docusate (COLACE) capsule 100 mg 100 mg, Oral, 2 TIMES DAILY, First dose on Mon05/31/21 at 0900, Until Discontinued 1304 (Not Given - Provider: Jaida Graham RN - Reason: Patient with symptoms)1654 (Not Given - Provider: Jyoti Verma RN - Reason: Patient/family refused) 08 (Given - Provider: Doris Herrera, RN) faMOTIdine (PEPCID) tablet 20 mg 20 mg, Oral, EVERY 12 HOURS, First dose on Mon05/31/21 at 0900, Until Discontinued, Start post-angio. 0900 (Given - Provider: Jaida Graham RN)1945 (Given - Provider: Alejandrina Hopkins RN) 827 (Given - Provider: Doris Herrera, DOUG) flecainide (TAMBOCOR) tablet 100 mg 100 mg, Oral, EVERY 12 HOURS, First dose on Mon05/31/21 at 0900, Until Discontinued 0937 (Not Given - Provider: Jaida Graham RN - Reason: Other)1945 (Given - Provider: Alejandrina Hopkins RN) 08 (Given - Provider: Doris Herrera, RN) lidocaine 2 % injection 0-400 mg (COMPLETED) 0-400 mg (0-20 mL), Infiltration, ONCE, 1 dose, On Mon05/31/21 at 0745, Subcutaneous injection as numbing agent., Intra-op/Intra-Proc 1229 (Given - Provider: Humberto Rush MD)1541 (Not Given - Provider: Jyoti Verma RN - Reason: Other) lisinopril (PRINIVIL) tablet 40 mg 40 mg, Oral, DAILY EVERY MORNING, First dose on Mon06/01/21 at 0900, Until Discontinued 0829 (Given - Provid er: Doris Herrera, DOUG) magnesium oxide (MAX-OX) tablet 400 mg (COMPLETED) 400 mg, Oral, ONCE, 1 dose, On Mon05/31/21 at 1015 1659 (Given - Provider: Jyoti Verma RN) magnesium oxide (MAX-OX) tablet 800 mg (COMPLETED) 800 mg, Oral, ONCE, 1 dose, On Mon06/01/21 at 0900, Occludes small-bore tubes 0828 (Given - Provid er: Doris Herrera RN) metoprolol succinate (TOPROL-XL) tablet XL 100 mg 100 mg, Oral, DAILY EVERY MORNING, First dose on Mon05/31/21 at 0900, Until Discontinued, Slow release product. Do not chew or crush 0938 (Given - Provider: Jaida Graham RN) 0829 (Given - Provider: Doris Herrera RN) naloxone (NARCAN) injection 0.1 mg(Linked Group 1) 0.1 mg, Intravenous, SEE ADMIN INSTRUCTIONS, Starting on Mon05/31/21 at 0733, Until Mon06/01/21 at 1522, If RR </= 7 per min and difficult to arouse give naloxone 0.1 mg q 2 mins until RR > 8/min and/or drowsiness abates. Contact provider. If no response is noted after 4 doses, consider other causes of respiratory depression. Vial to bedside in procedure room. Administer ONLY UNDER THE DIRECTION OF PHYSICIAN to a maximum dose of 2mg., Intra-op/Intra-Proc naloxone (NARCAN) injection 0.4 mg(Linked Group 1) 0.4 mg, Intravenous, SEE ADMIN INSTRUCTIONS, Starting on Mon05/31/21 at 0733, Until Mon06/01/21 at 1522, If patient APNEIC and difficult to arouse: Give naloxone 0.4 mg q2 minutes until RR> 8/min and call a 'code blue'. If no response is noted after 4 doses, consider other causes of respiratory depression. Vial to bedside in procedure room. Administer ONLY UNDER THE DIRECTION OF PHYSICIAN to a maximum dose of 2mg., Intra-op/Intra-Proc predniSONE (DELTASONE) tablet 50 mg (COMPLETED) 50 mg, Oral, ONCE, 1 dose, On Mon05/31/21 at 0845 1030 (Given - Provider: Jaida Graham RN) sertraline (ZOLOFT) tablet 150 mg 150 mg, Oral, DAILY EVERY MORNING, First dose on Mon05/31/21 at 0900, Until Discontinued 1304 (Not Given - Provider: Jaida Graham RN - Reason: Other) 0828 (Given - Provider: Doris Herrera, DOUG) Continuous Medication Order 05/30/2021 05/31/2021 06/01/2021 lactated ringers IV solution () Intravenous, at 125 mL/hr, CONTINUOUS, Starting on Mon05/31/21 at 0745, Until Mon05/31/21 at 1744, Pre-op/Pre-Proc 1541 (Stopped - Provider: Jyoti Verma RN)1653 ($$New Bag$$ - Provider: Jyoti Verma RN) octreotide (SANDOSTATIN) 500 mcg in sodium chloride 0.9% 100 mL IV infusion (CANCELED) 50 mcg/hr (10 mL/hr), Intravenous, CONTINUOUS, Starting on Mon05/31/21 at 0745, Until Mon06/01/21 at 0648, Do not hold patient in unit if medication is not available. Call pharmacy and have the medications delivered to IR and notify IR staff. 0937 ($$New Bag$$ - Provider: Jaida Grahma RN)1032 (Paused - Provider: Jyoti Verma RN)1035 (Restarted - Provider: Jyoti Verma RN)1110 ($$New Bag$$ - Provider: Jerry Beth RN)1236 (Rate/Dose Change - Provider: Jyoti Verma RN)1237 ($$New Bag$$ - Provider: Jerry Beth RN)1540 (Rate/Dose Verify - Provider: Jyoti Verma RN)1656 ($$New Bag$$ - Provider: Jyoti Verma RN) 0339 (Rate/Dose Verify - Provider: Alejandrina Hopkins RN)0343 ($$New Bag$$ - Provider: Alejandrina Hopkins, RN)0557 (Paused - Provider: Alejandrina Hopkins RN)0600 (Restarted - Provider: Alejandrina Hopkins RN)0619 (Rate/Dose Verify - Provider: Alejandrina Hopkins RN)0642 (Rate/Dose Verify - Provider: Alejandrina Hopkins RN) PRN Medication Order 05/30/2021 05/31/2021 06/01/2021 acetaminophen (TYLENOL) tablet 650 mg(Linked Group 2) 650 mg, Oral, EVERY 6 HOURS NEEDED, Starting on Mon05/31/21 at 1307, Until Mon06/01/21 at 1522, Mild Pain, Maximum dose of acetaminophen is 4000 mg from all sources in 24 hours., Post-op/Post-Proc fentaNYL (SUBLIMAZE) injection 0-300 mcg () 0-300 mcg, Intravenous, Administer over 2 Minutes, ADMINISTER DIRECTED, Starting on Mon05/31/21 at 0733, Until Mon05/31/21 at 1132, intraoperative pain management, Administer during procedure as directed by physician. Recorded MAR dose is cumulative amount given during procedure., Intra-op/Intra-Proc 1121 (Given - Provider: Jerry Beth RN)1214 (Given - Provider: Jerry Beth RN) hydrALAZINE (APRESOLINE) injection 10 mg 10 mg, Intravenous, EVERY 4 HOURS NEEDED, Starting on Mon05/31/21 at 0733, Until Mon06/01/21 at 1522, SBP > 160 and HR < 60, Give medication and call [facility] staff warning coordination meteorologist. hydrALAZINE (APRESOLINE) injection 2 mg 2 mg, Intravenous, EVERY 30 MINUTES NEEDED, 4 doses, Starting on Mon05/31/21 at 1307, Until Mon06/01/21 at 1522, SBP > 160 and HR < 60, Recovery hydrocortisone sodium succinate PF (SOLU-CORTEF) injection 100 mg (COMPLETED) 100 mg, Intravenous, FRONT EDGER TO PROCEDURE, 1 dose, Starting on Mon05/31/21 at 0733, Until Discontinued, As per study protocol, Premed, Administer 30 minutes prior to procedure. Do not hold patient in unit if medication is not available. Call pharmacy and have the medications delivered to IR and notify IR staff. 1211 (Given - Provider: Jerry Beth RN) HYDROmorphone (DILAUDID) injection 0.5 mg 0.5 mg, Intravenous, EVERY 3 HOURS NEEDED, Starting on Mon05/31/21 at 0733, Until Mon06/01/21 at 1522, Moderate Pain, Severe Pain, For Severe Pain. Use for moderate pain if not tolerating PO. Please contact team if dose is ineffective. 1302 (Given - Provider: Jaida Graham RN)1815 (Given - Provider: Jyoti Verma RN) ibuprofen (MOTRIN) tablet 400 mg(Linked Group 2) 400 mg, Oral, EVERY 4 HOURS NEEDED, Starting on Mon05/31/21 at 1307, Until Mon06/01/21 at 1522, Mild Pain, Give with food, Post-op/Post-Proc iohexol (OMNIPAQUE) 300 MG/ML vial NEEDED, Starting on Mon05/31/21 at 1231, Until Mon06/01/21 at 1522, CT Procedure 1231 (Given - Provider: Humberto Rush MD) labetalol (NORMODYNE) 10 mg in sodium chloride 0.9%, with overfill 62 mL (total volume) IVPB 10 mg, Intravenous, at 248 mL/hr, Administer over 15 Minutes, EVERY 4 HOURS NEEDED, Starting on Mon05/31/21 at 0733, Until Mon06/01/21 at 1522, SBP > 160 and HR > 60, Give medication and call [facility] staff warning coordination meteorologist. labetalol (NORMODYNE) injection 5 mg 5 mg, Intravenous, EVERY 30 MINUTES NEEDED, 4 doses, Starting on Mon05/31/21 at 1307, Until Mon06/01/21 at 1522, SBP > 160 and HR > 60, To be given only in perioperative area. If 2 doses given within 60 minutes, notify [facility] marine steamfitter warning coordination meteorologist. For vials: labetalol should be treated as a SINGLE USE VIAL. Discard remaining contents after one use., Recovery midazolam (VERSED) injection 0-10 mg () 0-10 mg, Intravenous, ADMINISTER DIRECTED, Starting on Mon05/31/21 at 0733, Until Mon05/31/21 at 1132, Procedural sedation, Administer during procedure as directed by physician. Recorded MAR dose is cumulative amount given during procedure., Intra-op/Intra-Proc 1121 (Given - Provider: Jerry Beth RN)1215 (Given - Provider: Jerry Beth RN) octreotide (SANDOSTATIN) injection 100 mcg 100 mcg, Intravenous, ONCE DIRECTED, 1 dose, Starting on Mon05/31/21 at 0944, Until Mon06/01/21 at 1522, Other, Carcinoid embolization, Send med with patient to IR ondansetron (ZOFRAN) 10 mg, dexAMETHasone (DECADRON) 20 mg in sodium chloride 0.9%, with overfill 70 mL (total volume) IVPB (COMPLETED) 10 mg, Intravenous, Administer over 0.25 Hours, FRONT EDGER TO PROCEDURE, 1 dose, Starting on Mon05/31/21 at 0733, Until Mon05/31/21 at 1300, Administer 30 minutes prior to procedure. Do not hold patient in unit if medication is not available. Call pharmacy and have the medications delivered to IR and notify IR staff. 1053 ($$New Bag$$ - Provider: Jerry Beth RN)1300 (Stopped - Provider: Jyoti Verma RN) ondansetron 4mg/2ml (ZOFRAN) injection 4 mg 4 mg, Intravenous, EVERY 4 HOURS NEEDED, Starting on Mon05/31/21 at 0733, Until Mon06/01/21 at 1522, Refractory Nausea Vomiting, severe oxyCODONE (ROXICODONE) tablet 5 mg 5 mg, Oral, EVERY 4 HOURS NEEDED, Starting on Mon05/31/21 at 0733, Until Mon06/01/21 at 1522, Mild Pain, Moderate Pain, Severe Pain, For Mild or Moderate Pain. Use for severe pain if IV not available. Please contact team if dose is ineffective. oxyCODONE-acetaminophen (PERCOCET) 5-325 MG per tablet 1 tablet(Linked Group 3) 1 tablet, Oral, EVERY 4 HOURS NEEDED, Starting on Mon05/31/21 at 1307, Until Mon06/01/21 at 1522, Moderate Pain, Severe Pain, Use as initial dose for moderate/severe pain. Higher dose may be administered if lower dose was previously documented as ineffective and did not result in adverse effects (RR<10, decrease in level of consciousness)., Post-op/Post-Proc 1659 (Given - Provider: Jyoti Verma RN) 0104 (See Alternative - Provider: Alejandrina Hopkins RN)0711 (See Alternative - Provider: Alejandrina Hopkins RN)1120 (See Alternative - Provider: Doris Herrera, DOUG) oxyCODONE-acetaminophen (PERCOCET) 5-325 MG per tablet 2 tablet(Linked Group 3) 2 tablet, Oral, EVERY 4 HOURS NEEDED, Starting on Mon05/31/21 at 1307, Until Mon06/01/21 at 1522, Moderate Pain, Severe Pain, Higher dose may be administered if lower dose was previously documented as ineffective and did not result in adverse effects (RR<10, decrease in level of consciousness). Decrease back to lower dose if patient has adverse effects, or no PRN used in previous 12 hours., Post-op/Post-Proc 1659 (See Alternative - Provider: Jyoti Verma RN) 0104 (Given - Provider: Alejandrina Hopkins RN)0711 (Given - Provider: Alejandrina Hopkins RN)1120 (Given - Provider: Doris Herrera, DOUG) promethazine (PHENERGAN) tablet 25 mg 25 mg, Oral, EVERY 6 HOURS NEEDED, Starting on Mon05/31/21 at 0733, Until Mon06/01/21 at 1522, Nausea / Vomiting 1129 (Given - Provid er: Doris Herrera RN) sodium chloride 0.9% IV solution 250 mL Intravenous, at 20 mL/hr, NEEDED, Starting on Mon05/31/21 at 0733, Until Mon06/01/21 at 1522, Carrier Fluid - See Admin. Inst, 250mL 0.9NS to be used as carrier fluid for intermittent small volume or piggyback medication administration as needed. Infusion rate of the carrier fluid should be set at 20 mL/hr unless the rate as the intermittent medication is less than 20 mL/hr. For intermittent medications with a rate less than 20 mL/hr set the carrier fluid at that rate of the intermittent or piggy back medication., Pre-op/Pre-Proc Linked Groups Order Group 1: naloxone (NARCAN) injection 0.1 mgJump to med 0.1 mg, Intravenous, SEE ADMIN INSTRUCTIONS, Starting on Mon05/31/21 at 0733, Until Mon06/01/21 at 1522
If RR </= 7 per min and difficult to arouse give naloxone 0.1 mg q 2 mins until RR > 8/min and/or drowsiness abates. Contact provider. If no response is noted after 4 doses, consider other causes of respiratory depression. Vial to bedside in procedure room. Administer ONLY UNDER THE DIRECTION OF PHYSICIAN to a maximum dose of 2mg.
Intra-op/Intra-Proc Or naloxone (NARCAN) injection 0.4 mgJump to med 0.4 mg, Intravenous, SEE ADMIN INSTRUCTIONS, Starting on Mon05/31/21 at 0733, Until Mon06/01/21 at 1522
If patient APNEIC and difficult to arouse: Give naloxone 0.4 mg q2 minutes until RR> 8/min and call a 'code blue'. If no response is noted after 4 doses, consider other causes of respiratory depression. Vial to bedside in procedure room. Administer ONLY UNDER THE DIRECTION OF PHYSICIAN to a maximum dose of 2mg.
Intra-op/Intra-Proc Group 2: acetaminophen (TYLENOL) tablet 650 mgJump to med 650 mg, Oral, EVERY 6 HOURS NEEDED, Starting on Mon05/31/21 at 1307, Until Mon06/01/21 at 1522, Mild Pain
Maximum dose of acetaminophen is 4000 mg from all sources in 24 hours.
Post-op/Post-Proc Or ibuprofen (MOTRIN) tablet 400 mgJump to med 400 mg, Oral, EVERY 4 HOURS NEEDED, Starting on Mon05/31/21 at 1307, Until Mon06/01/21 at 1522, Mild Pain
Give with food
Post-op/Post-Proc Group 3: oxyCODONE-acetaminophen (PERCOCET) 5-325 MG per tablet 1 tabletJump to med 1 tablet, Oral, EVERY 4 HOURS NEEDED, Starting on Mon05/31/21 at 1307, Until Mon06/01/21 at 1522, Moderate Pain, Severe Pain
Use as initial dose for moderate/severe pain. Higher dose may be administered if lower dose was previously documented as ineffective and did not result in adverse effects (RR<10, decrease in level of consciousness).
Post-op/Post-Proc Or oxyCODONE-acetaminophen (PERCOCET) 5-325 MG per tablet 2 tabletJump to med 2 tablet, Oral, EVERY 4 HOURS NEEDED, Starting on 05/31/21 at 1307, Until Mon06/01/21 at 1522, Moderate Pain, Severe Pain
Higher dose may be administered if lower dose was previously documented as ineffective and did not result in adverse effects (RR<10, decrease in level of consciousness). Decrease back to lower dose if patient has adverse effects, or no PRN used in previous 12 hours.
Post-op/Post-Proc Scheduled Medication Order 08/10/2023 08/11/2023 08/12/2023 amLODIPine (NORVASC) tablet 5 mg 5 mg, Oral, DAILY EVERY MORNING, First dose on 08/12/23 at 0900, Until Discontinued apixaban (ELIQUIS) tablet 5 mg 5 mg, Oral, EVERY 12 HOURS, First dose on 08/12/23 at 0900, Until Discontinued, Due to the rapid onset of action of apixaban, no overlap is needed with other anticoagulants (e.g. enoxaparin, heparin)., Indications: Atrial Fibrillation cholecalciferol (VITAMIN D3) tablet 2,000 Units 2,000 Units, Oral, DAILY, First dose on 08/12/23 at 0900, Until Discontinued diphenhydrAMINE (BENADRYL) injection 50 mg(Linked Group 1) 50 mg, Intramuscular, 60 MIN PRE-OP, 1 dose, On Mon08/11/23 at 2145, For patients who have had previous adverse reactions to Iodinated Contrast / Gadolinium agents, Administer 60 minutes prior to procedure. diphenhydrAMINE (BENADRYL) injection 50 mg(Linked Group 1) 50 mg, Intravenous, 60 MIN PRE-OP, 1 dose, On Mon08/11/23 at 2145, For patients who have had previous adverse reactions to Iodinated Contrast / Gadolinium agents, Administer 60 minutes prior to procedure. diphenhydrAMINE (BENADRYL) tablet 50 mg(Linked Group 1) 50 mg, Oral, 60 MIN PRE-OP, 1 dose, On Mon08/11/23 at 2145, For patients who have had previous adverse reactions to Iodinated Contrast / Gadolinium agents, Administer 60 minutes prior to procedure. Flecainide (TAMBOCOR) tablet 100 mg 100 mg, Oral, EVERY 12 HOURS, First dose on 08/12/23 at 0900, Until Discontinued Lisinopril (PRINIVIL) tablet 40 mg 40 mg, Oral, DAILY EVERY MORNING, First dose on Mon08/12/23 at 0900, Until Discontinued magnesium oxide (MAG-OX) tablet 400 mg 400 mg, Oral, DAILY, First dose on Mon08/12/23 at 0900, Until Discontinued Metoprolol succinate (TOPROL-XL) tablet XL 100 mg 100 mg, Oral, DAILY EVERY MORNING, First dose on Mon08/12/23 at 0900, Until Discontinued, Slow release product. Do not crush. Extended release can be cut in half. Polyethylene glycol (MIRALAX) packet 17 g 17 g, Oral, DAILY, First dose on Mon08/12/23 at 0900, Until Discontinued Potassium Bicarb-Citric Acid (Effer-K) 20 MEQ effervescent tablets for oral solution 40 mEq (COMPLETED) 40 mEq, Oral, ONCE, 1 dose, On Mon08/11/23 at 2230, Do not swallow whole. Dissolve completely in 3-4 ounces of water or cold juice before drinking. If administering via J tube, dilute in sterile water, wait for tablet to stop fizzing, swirl the solution and draw into a syringe suitable for attaching to the tube. After administration, flush tube with 15-30 ml water. 0012 (Given - Provid er: So Byers RN) predniSONE (DELTASONE) tablet 50 mg 50 mg, Oral, EVERY 6 HOURS NON-STANDARD, 3 doses, First dose on Mon08/11/23 at 2215, Last dose on Mon08/12/23 at 1015, For patients who have had previous adverse reactions to Iodinated Contrast / Gadolinium agents, Order should be timed to start 13 hours prior to procedure. Administer dose at 13 hours, 7 hours, and 1 hour prior to procedure. 0012 (Given - Provid er: So Byers RN) Senna (SENOKOT) tablet 8.6 mg 8.6 mg, Oral, DAILY, First dose on Mon08/12/23 at 0900, Until Discontinued Sertraline (ZOLOFT) tablet 150 mg 150 mg, Oral, DAILY, First dose on Mon08/12/23 at 0900, Until Discontinued Continuous Medication Order 08/10/2023 08/11/2023 08/12/2023 Lactated ringers IV solution Intravenous, at 75 mL/hr, CONTINUOUS, Starting on Mon08/11/23 at 2200, Until 08/12/23 at 337 0014 ($$New Bag$$ - Provider: So Byers RN)0319 (Rate/Dose Verify - Provider: So Byers RN) PRN Medication Order 08/10/2023 08/11/2023 08/12/2023 Acetaminophen (TYLENOL) tablet 650 mg 650 mg, Oral, EVERY 6 HOURS NEEDED, Starting on 08/12/23 at 0206, Until 08/12/23 at 033, Mild Pain, Oral temp > 100.4 F, Up to 2 g per day, Maximum dose of acetaminophen is 4000 mg from all sources in 24 hours. alum/mag hydrox.-simethicone oral suspension 30 mL 30 mL, Oral, EVERY 6 HOURS NEEDED, Starting on 08/12/23 at 0205, Until 08/12/23 at 337, Indigestion, Per 5 mL is equivalent to: (Alum-Mag Hydroxide 200-225 mg and Simethicone 20 mg) and (Alum-Mag Hydroxide 200-200 mg and Simethicone 20 mg) bisacodyl (DULCOLAX) suppository 10 mg 10 mg, Rectal, DAILY NEEDED, Starting on 08/12/23 at 0205, Until 08/12/23 at 033, Constipation 2nd Line Melatonin tablet 6 mg 6 mg, Oral, DAILY AT BEDTIME NEEDED, Starting on 08/12/23 at 0205, Until 08/12/23 at 337, Insomnia Ondansetron (ZOFRAN) tablet 4 mg(Linked Group 2) 4 mg, Oral, EVERY 6 HOURS NEEDED, Starting on 08/12/23 at 0205, Until 08/12/23 at 0338, Nausea / Vomiting, 1st line for Nausea/Vomiting Ondansetron 4mg/2ml (ZOFRAN) injection 4 mg(Linked Group 2) 4 mg, Intravenous, EVERY 6 HOURS NEEDED, Starting on 08/12/23 at 0205, Until 08/12/23 at 033, Nausea / Vomiting, 1st line for Nausea/Vomiting Sodium chloride 0.9% IV solution 250 mL Intravenous, at 20 mL/hr, NEEDED, Starting on 08/12/23 at 0204, Until 08/12/23 at 0338, Carrier Fluid - See Admin. Inst, 250mL 0.9NS to be used as carrier fluid for intermittent small volume or piggyback medication administration as needed. Infusion rate of the carrier fluid should be set at 20 mL/hr unless the rate as the intermittent medication is less than 20 mL/hr. For intermittent medications with a rate less than 20 mL/hr set the carrier fluid at that rate of the intermittent or piggy back medication. Linked Groups Order Group 1: diphenhydrAMINE (BENADRYL) tablet 50 mgJump to med 50 mg, Oral, 60 MIN PRE-OP, 1 dose, On Mon08/11/23 at 2145, For patients who have had previous adverse reactions to Iodinated Contrast / Gadolinium agents, Administer 60 minutes prior to procedure. Or diphenhydrAMINE (BENADRYL) injection 50 mgJump to med 50 mg, Intramuscular, 60 MIN PRE-OP, 1 dose, On Mon08/11/23 at 2145, For patients who have had previous adverse reactions to Iodinated Contrast / Gadolinium agents, Administer 60 minutes prior to procedure. Or diphenhydrAMINE (BENADRYL) injection 50 mgJump to med 50 mg, Intravenous, 60 MIN PRE-OP, 1 dose, On Mon08/11/23 at 2145, For patients who have had previous adverse reactions to Iodinated Contrast / Gadolinium agents, Administer 60 minutes prior to procedure. Group 2: Ondansetron 4mg/2ml (ZOFRAN) injection 4 mgJump to med 4 mg, Intravenous, EVERY 6 HOURS NEEDED, Starting on 08/12/23 at 0205, Until 08/12/23 at 0338, Nausea / Vomiting, 1st line for Nausea/Vomiting Or Ondansetron (ZOFRAN) tablet 4 mgJump to med 4 mg, Oral, EVERY 6 HOURS NEEDED, Starting on 08/12/23 at 0205, Until 08/12/23 at 0338, Nausea / Vomiting, 1st line for Nausea/Vomiting Scheduled Medication Order 08/13/2023 08/14/2023 08/15/2023 amLODIPine (NORVASC) tablet 5 mg 5 mg, Oral, DAILY EVERY MORNING, First dose (after last modification) on 08/12/23 at 0900, Until Discontinued 928 (Given - Provider: Duncan Jean Baptiste RN) 810 (Given - Provider: Evie Diallo RN) 830 (Given - Provider: Evie Diallo RN) apixaban (ELIQUIS) tablet 5 mg 5 mg, Oral, EVERY 12 HOURS, First dose (after last modification) on 08/12/23 at 0900, Until Discontinued, Due to the rapid onset of action of apixaban, no overlap is needed with other anticoagulants (e.g. enoxaparin, heparin)., Indications: Atrial Fibrillation 899 (Automatically Held - Provider: Francisco Gutierrez MD)1336 (Unheld by provider - Provider: Chai Espinosa MD)2027 (Given - Provider: Rodrigo Hernández RN) 810 (Given - Provider: Evie Diallo RN)1951 (Given - Provider: Maraino Ramírez RN) 830 (Given - Provider: Evie Diallo RN) cholecalciferol (VITAMIN D3) tablet 2,000 Units 2,000 Units, Oral, DAILY, First dose (after last modification) on 08/12/23 at 0900, Until Discontinued 927 (Given - Provider: Duncan Jean Baptiste RN) 810 (Given - Provider: Evie Diallo RN) 830 (Not Given - Provider: Evie Diallo RN - Reason: Other - Comment: dropped med) Flecainide (TAMBOCOR) tablet 100 mg 100 mg, Oral, EVERY 12 HOURS, First dose (after last modification) on 08/12/23 at 0900, Until Discontinued 927 (Given - Provider: Duncan Jean Baptiste RN)2027 (Given - Provider: Rodrigo Hernández RN) 810 (Given - Provider: Evie Diallo RN)1951 (Given - Provider: Mariano Ramírez RN) 08 (Given - Provider: Evie Diallo RN) Lisinopril (PRINIVIL) tablet 40 mg 40 mg, Oral, DAILY EVERY MORNING, First dose (after last modification) on 08/12/23 at 0900, Until Discontinued 927 (Given - Provider: Duncan Jean Baptiste RN) 810 (Given - Provider: Evie Diallo RN) 0831 (Given - Provider: Evie Diallo RN) magnesium oxide (MAG-OX) tablet 400 mg 400 mg, Oral, DAILY, First dose (after last modification) on 08/12/23 at 0900, Until Discontinued 0928 (Given - Provider: Duncan Jean Baptiste RN) 08 (Given - Provider: Evie Diallo RN) 0831 (Given - Provider: Evie Diallo RN) Magnesium sulfate 4 g in sterile water 50 ml premix IVPB (COMPLETED) 4 g, Intravenous, Administer over 4 Hours, ONCE, 1 dose, On 08/13/23 at 0815 1415 ($$New Bag$$ - Provider: Duncan Jean Baptiste RN)1615 (Stopped - Provider: Duncan Jean Baptiste RN) Metoprolol succinate (TOPROL-XL) tablet XL 100 mg 100 mg, Oral, DAILY EVERY MORNING, First dose (after last modification) on 08/12/23 at 0900, Until Discontinued, Slow release product. Do not crush. Extended release can be cut in half., On hold since 08/13/2023 at 0939 until manually unheld 0939 (Held by provider - Provider: Chai Espinosa MD - Reason: Order Parameters not met)0944 (Not Given - Provider: Duncan Jean Baptiste RN - Reason: Other - Comment: held by provider) 0900 (Automatically Held - Provider: Chai Espinosa MD) 0900 (Automatically Held - Provider: Chai Espinosa MD)1811 (Unheld by provider - Provider: System Discharge) Potassium chloride 10 mEq in sterile water 100 ml premix IVPB (COMPLETED)(Linked Group 1) 10 mEq, Intravenous, Administer over 60 Minutes, ONCE, 1 dose, On 08/13/23 at 0715 0944 ($$New Bag$$ - Provider: Duncan Jean Baptiste RN)1109 (Rate/Dose Change - Provider: Duncan Jean Baptiste RN)1137 (Stopped - Provider: Duncan Jean Baptiste RN) Potassium chloride 10 mEq in sterile water 100 ml premix IVPB (COMPLETED)(Linked Group 1) 10 mEq, Intravenous, Administer over 60 Minutes, ONCE, 1 dose, On 08/13/23 at 0815 1158 ($$New Bag$$ - Provider: Duncan Jean Baptiste RN)1315 (Rate/Dose Change - Provider: Duncan Jean Baptiste RN)1410 (Stopped - Provider: Duncan Jean Baptiste RN) Senna (SENOKOT) tablet 8.6 mg 8.6 mg, Oral, DAILY, First dose (after last modification) on 08/12/23 at 0900, Until Discontinued 927 (Not Given - Provider: Duncan Jean Baptiste RN - Reason: Patient/family refused) 08 (Not Given - Provider: Evie Diallo RN - Reason: Patient/family refused) 08 (Not Given - Provider: Evie Diallo RN - Reason: Patient/family refused) Sertraline (ZOLOFT) tablet 150 mg 150 mg, Oral, DAILY, First dose (after last modification) on 08/12/23 at 0900, Until Discontinued 927 (Given - Provider: Duncan Jean Baptiste RN) 08 (Given - Provider: Evie Diallo RN) 08 (Given - Provider: Evie Diallo RN) Continuous Medication Order 08/13/2023 08/14/2023 08/15/2023 Heparin 25,000 units in dextrose 5% 250 mL premix infusion (CANCELED) CONTINUOUS, Starting on 08/12/23 at 1230, Until 08/13/23 at 1214, STANDARD SLIDING SCALE FOR PATIENTS WEIGHT LESS THAN 125KG: Initiate dose at 18 units/kg/hr. If PTT is less than 47, increase dose by 3 units/kg/hr. If PTT is 47-60, increase dose by 2 units/kg/hr. If PTT is 61-71, increase dose by 1 unit/kg/hr. If PTT is 72-95, no change. If PTT is 96-111, decrease dose by 1 unit/kg/hr. If PTT is 112-126, hold infusion for 60 minutes and decrease dose by 2 units/kg/hr. If PTT greater than 126, hold infusion and check PTT every 2 hours. Once PTT is in goal range or below, restart infusion at 3 units/kg/hr lower than the most recent dose. Note: Round PTT to nearest whole number (e.g. 70.5=71, 70.4=70)., Indications: Atrial Fibrillation 0618 (Rate/Dose Change - Provider: Karin Disla RN)1109 (Rate/Dose Verify - Provider: Duncan Jean Baptiste RN)1255 (Stopped - Provider: Duncan Jean Baptiste RN) Lactated ringers IV solution (CANCELED) Intravenous, at 75 mL/hr, CONTINUOUS, Starting on 08/12/23 at 0345, Until 08/13/23 at 1109 1109 (Rate/Dose Verify - Provider: Duncan Jean Baptiste RN)1138 (Stopped - Provider: Duncan Jean Baptiste RN) PRN Medication Order 08/13/2023 08/14/2023 08/15/2023 Acetaminophen (TYLENOL) tablet 650 mg 650 mg, Oral, EVERY 6 HOURS NEEDED, Starting on 08/12/23 at 0340, Until 08/15/23 at 181, Mild Pain, Oral temp > 100.4 F, Up to 2 g per day, Maximum dose of acetaminophen is 2000 mg from all sources in 24 hours. alum/mag hydrox.-simethicone oral suspension 30 mL 30 mL, Oral, EVERY 6 HOURS NEEDED, Starting on 08/12/23 at 0340, Until 08/15/23 at 1811, Indigestion, Per 5 mL is equivalent to: (Alum-Mag Hydroxide 200-225 mg and Simethicone 20 mg) and (Alum-Mag Hydroxide 200-200 mg and Simethicone 20 mg) bisacodyl (DULCOLAX) suppository 10 mg 10 mg, Rectal, DAILY NEEDED, Starting on 08/12/23 at 0340, Until 08/15/23 at 1811, Constipation 2nd Line Loperamide (IMODIUM) capsule 2 mg 2 mg, Oral, EVERY 4 HOURS NEEDED, Starting on 08/13/23 at 0935, Until 08/15/23 at 181, Diarrhea 1108 (Given - Provider: Duncan Jena Baptiste RN)1437 (Given - Provider: Duncan Jean Baptiste RN) Melatonin tablet 6 mg 6 mg, Oral, DAILY AT BEDTIME NEEDED, Starting on 08/12/23 at 0340, Until 08/15/23 at 1811, Insomnia Ondansetron (ZOFRAN) tablet 4 mg(Linked Group 2) 4 mg, Oral, EVERY 6 HOURS NEEDED, Starting on 08/12/23 at 0340, Until Mon08/15/23 at 1811, Nausea / Vomiting, 1st line for Nausea/Vomiting Ondansetron 4mg/2ml (ZOFRAN) injection 4 mg(Linked Group 2) 4 mg, Intravenous, EVERY 6 HOURS NEEDED, Starting on 08/12/23 at 0340, Until Mon08/15/23 at 1811, Nausea / Vomiting, 1st line for Nausea/Vomiting Polyethylene glycol (MIRALAX) packet 17 g 17 g, Oral, DAILY NEEDED, Starting on Mon08/14/23 at 1030, Until Mon08/15/23 at 1811, Constipation If No Bowel Movement in 48 Hours Sodium chloride 0.9% IV solution 250 mL Intravenous, at 20 mL/hr, NEEDED, Starting on 08/12/23 at 0340, Until Mon08/15/23 at 1811, Carrier Fluid - See Admin. Inst, 250mL 0.9NS to be used as carrier fluid for intermittent small volume or piggyback medication administration as needed. Infusion rate of the carrier fluid should be set at 20 mL/hr unless the rate as the intermittent medication is less than 20 mL/hr. For intermittent medications with a rate less than 20 mL/hr set the carrier fluid at that rate of the intermittent or piggy back medication. Linked Groups Order Group 1: Potassium chloride 10 mEq in sterile water 100 ml premix IVPB (COMPLETED)Jump to med 10 mEq, Intravenous, Administer over 60 Minutes, ONCE, 1 dose, On 08/13/23 at 0715 Followed by Potassium chloride 10 mEq in sterile water 100 ml premix IVPB (COMPLETED)Jump to med 10 mEq, Intravenous, Administer over 60 Minutes, ONCE, 1 dose, On Mon08/13/23 at 0815 Followed by Potassium chloride 10 mEq in sterile water 100 ml premix IVPB () 10 mEq, Intravenous, Administer over 60 Minutes, ONCE, 1 dose, On Mon08/13/23 at 0915 Group 2: Ondansetron 4mg/2ml (ZOFRAN) injection 4 mgJump to med 4 mg, Intravenous, EVERY 6 HOURS NEEDED, Starting on 08/12/23 at 0340, Until Mon08/15/23 at 1811, Nausea / Vomiting, 1st line for Nausea/Vomiting Or Ondansetron (ZOFRAN) tablet 4 mgJump to med 4 mg, Oral, EVERY 6 HOURS NEEDED, Starting on 08/12/23 at 0340, Until Tu08/15/23 at 1811, Nausea / Vomiting, 1st line for Nausea/Vomiting Scheduled Medication Order 12/13/2023 12/14/2023 12/15/2023 aspirin chewable tablet 324 mg (COMPLETED) 324 mg, Oral, ONCE, 1 dose, On Mon12/15/23 at 0800, Patient to receive at least 30 minutes prior to procedure. Instruct patient to chew and not swallow., Pre-op/Pre-Proc 0843 (Given - Provid er: Amanda Li RN) diphenhydrAMINE (BENADRYL) injection 50 mg (COMPLETED) 50 mg, Intravenous, 60 MIN PRE-OP, 1 dose, On Mon12/15/23 at 0845, Nursing to administer one hour prior to procedure., Pre-op/Pre-Proc 0844 (Given - Provid er: Amanda Li RN) famotidine (PF) (PEPCID) injection 20 mg (COMPLETED) 20 mg, Intravenous, 60 MIN PRE-OP, 1 dose, On Mon12/15/23 at 0845, Nursing to administer one hour prior to procedure. Administer undiluted by slow IV push at a rate not to exceed 10mg/min., Pre-op/Pre-Proc 0844 (Given - Provid er: Amanda iL RN) PRN Medication Order 12/13/2023 12/14/2023 12/15/2023 famotidine (PF) (PEPCID) injection (CANCELED) NEEDED, Starting on Mon12/15/23 at 0843, Until Mon12/15/23 at 1001, Intra-op/Intra-Proc 0843 (Given - Provid er: Elham Griffin RN) fentaNYL (SUBLIMAZE) injection (CANCELED) Administer over 2 Minutes, NEEDED, Starting on Mon12/15/23 at 0917, Until Mon12/15/23 at 1001, Intra-op/Intra-Proc 0917 (Given - Provid er: Elham Griffin RN)0944 (Given - Provider: Elham Griffin RN) iodixanol (VISIPAQUE) injection 320 mg/mL for [facility] IR (CANCELED) NEEDED, Starting on Mon12/15/23 at 0951, Until Mon12/15/23 at 1001, Intra-op/Intra-Proc 0951 (Given - Provid er: Fifi Concepcion MD) Lidocaine 2 % injection (CANCELED) NEEDED, Starting on Mon12/15/23 at 0916, Until Mon12/15/23 at 1001, Intra-op/Intra-Proc 0916 (Given - Provid er: Fifi Concepcion MD)0941 (Given - Provider: Fifi Concepcion MD) midazolam (VERSED) injection (CANCELED) NEEDED, Starting on Mon12/15/23 at 0917, Until Mon12/15/23 at 1001, Intra-op/Intra-Proc 0917 (Given - Provid er: Elham Griffin RN)0944 (Given - Provider: Elham Griffin RN) Care Teams (unrecognized sec tion and content) 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 Specialty Start Date End Date Blanca Cruz MD [address] [place] [id number] PCP - General Family Medicine 10/29/20 Matt Nunez, [facility] [address] [place], [place] [id number] Oncologist Hematology 10/29/20 Chava Rodriguez MD [address] [facility] [address] [place] [id number] Cardiovascular Medicine 10/29/20 Sara Garcia MD [address] [place] [address] Service Technician Endocrinology, Diabetes & Metabolism 12/30/20 Rodrigo López MD [address] [place] [address] Surgeon Surgical Oncology 03/08/21 Erwin David MD [address] [place] [address] Oncologist Medical Oncology 03/08/21 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 Specialty Start Date End Date Blanca Cruz MD [address] [place] [phone] PCP - General Family Medicine 10/29/20 Matt Nunez, [facility] [address] [place] [address] Oncologist Hematology 10/29/20 Chava Rodriguez MD [address] [facility] [address] [address] [place] [id number] Cardiovascular Medicine 10/29/20 Sara Garcia MD [address] [place] [address] Service Technician Endocrinology, Diabetes & Metabolism 12/30/20 Rodrigo López MD [address] [place] [address] Surgeon Surgical Oncology 03/08/21 Erwin David MD [address] [place] [address] Oncologist Medical Oncology 03/08/21 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 Specialty Start Date End Date Blanca Cruz MD [address] [place] [address] PCP - General Family Medicine 10/29/20 Matt Nunez, [facility] [address] [place] [address] Oncologist Hematology 10/29/20 Chava Rodriguez MD [address] [place] [address] Cardiovascular Medicine 10/29/20 Sara Garcia MD [address] [place] [address] Service Technician Endocrinology, Diabetes & Metabolism 12/30/20 Rodrigo López MD [address] [place] [address] Surgeon Surgical Oncology 03/08/21 Erwin David MD [address] [place] [address] Oncologist Medical Oncology 03/08/21 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 Specialty Start Date End Date Blanca Cruz MD [address] [place] [address] PCP - General Family Medicine 10/29/20 Matt Nunez, [facility] [address] [place] [address] Oncologist Hematology 10/29/20 Chava Rodriguez MD 1761 [facility] [place] [address] Cardiovascular Medicine 10/29/20 Sara Garcia MD [address] [place] [address] Service Technician Endocrinology, Diabetes & Metabolism 12/30/20 Rodrigo López MD [address] [place] [address] Surgeon Surgical Oncology 03/08/21 Erwin David MD [address] [place] [address] Oncologist Medical Oncology 03/08/21 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 Specialty Start Date End Date Blanca Cruz MD [address] [place] [address] PCP - General Family Medicine 10/29/20 Matt Nunez, [facility] [address] [place] [address] Oncologist Hematology 10/29/20 Chava Rodriguez MD [address] [place] [address] Cardiovascular Medicine 10/29/20 Sara Garcia MD [address] [place] [address] Service Technician Endocrinology, Diabetes & Metabolism 12/30/20 Rodrigo López MD 2049 [facility] [address]th [place] [address] Surgeon Surgical Oncology 03/08/21 Erwin David MD 2049 [facility] [address] [place] [address] Oncologist Medical Oncology 03/08/21 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 Specialty Start Date End Date Blanca Cruz MD [address] [place] [address] PCP - General Family Medicine 10/29/20 Matt Nunez, [facility] [address] [place] [address] Oncologist Hematology 10/29/20 Chaav Rodriguez MD [address] [place] [address] Cardiovascular Medicine 10/29/20 Sara Garcia MD [address] [place] [address] Service Technician Endocrinology, Diabetes & Metabolism 12/30/20 Rodrigo López MD [address] [place] [address] Surgeon Surgical Oncology 03/08/21 Erwin David MD [address] [facility] [address] [place] [address] Oncologist Medical Oncology 03/08/21 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 Specialty Start Date End Date Blanca Cruz MD [address] [place] [address] PCP - General Family Medicine 10/29/20 Matt Nunez, [facility] [address] [place] [address] Oncologist Hematology 10/29/20 Chava Rodriguez MD 1761 [facility] Phys[facility] [address] [place] [address] Cardiovascular Disease 10/29/20 Sara Garcia MD [address] [place] [address] Service Technician Endocrinology, Diabetes & Metabolism 12/30/20 Rodrigo López MD [address] [facility] [address] [place] [address] Surgeon Surgical Oncology 03/08/21 Erwin David MD [address] [facility] [address] [place] [address] Oncologist Medical Oncology 03/08/21 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 Specialty Start Date End Date Blanca Cruz MD [address] [place] [address] PCP - General Family Medicine 10/29/20 Matt Nunez, [facility] [address] [place] [address] Oncologist Hematology 10/29/20 Chava Rodriguez MD 1761 [facility] [place] [address] Cardiovascular Disease 10/29/20 Sara Garcia MD [address] [place] [address] Service Technician Endocrinology, Diabetes & Metabolism 12/30/20 Rodrigo López MD [address] [place] [address] Surgeon Surgical Oncology 03/08/21 Erwin David MD [address] [place] [address] Oncologist Medical Oncology 03/08/21 Team Status: Active Member Role Status Dates Dr. Blanca Cruz MD Family Provider Active Dr. Blanca Cruz MD Primary Care Provider Active Team Status: Inactive Member Role Status Dates Dr. Blanca Cruz MD Primary Care Provider, Referrin g Provider Active Dorothy Bauer NP, PERSONAL CARE AIDE-C Attending Provider Active Team Status: Inactive Member Role Status Dates Dr. Blanca Crzu MD Primary Care Provider Active Dorothy Bauer NP, PERSONAL CARE AIDE-C Attending Provider Active Team Status: Inactive Member Role Status Dates Dr. Blanca Cruz MD Primary Care Provider, Referrin g Provider Active Dr. Matt Nunez MD Attending Provider Active Team Status: Active Member Role Status Dates Dr. Blanca Cruz MD Primary Care Provider Active Dr. Matt Nunez MD Attending Provider, Referrin g Provider Active Team Status: Inactive Member Role Status Dates Dr. Blanca Cruz MD Primary Care Provider Active Dr. Matt Nunez MD Attending Provider Active Team Status: Inactive Member Role Status Dates Dr. Blanca Cruz MD Primary Care Provider Active Shazia Herman NP-C Attending Provider, Referring Pr ovider Active Team Status: Active Member Role Status Dates Dr. Blanca Cruz MD Primary Care Provider Active Dr. Sara Garcia MD Attending Provider, Referring Pro vider Active Team Status: Active Member Role Status Dates Dr. Blanca Cruz MD Primary Care Provider Active Dr. Sara Garcia MD Attending Provider Active Team Status: Inactive Member Role Status Dates Dr. Blanca Cruz MD Primary Care Provider Active Dr. Sara Garcia MD Attending Provider, Referring Pro vider Active Team Status: Inactive Member Role Status Dates Dr. Blanca Cruz MD Primary Care Provider Active Dr. Sara Garcia MD Attending Provider Active Team Status: Inactive Member Role Status Dates Dr. Blanca Cruz MD Primary Care Provider, Referrin g Provider Active Lamin Lamas NP, PERSONAL CARE AIDE-C Attending Provider Active Team Status: Inactive Member Role Status Dates Dr. Blanca Cruz MD Primary Care Provider, Referrin g Provider Active Eric Morales MD Attending Provider Active Team Status: Inactive Member Role Status Dates Dr. Blanca Cruz MD Primary Care Provider Active Dr. Alea Man DO Emergency Provider Active 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 Specialty Start Date End Date Blanca Cruz MD [address] [place] [address] PCP - General Family Medicine 10/29/20 Matt Nunez [facility] [address] [place], [place] [phone] Oncologist Hematology 10/29/20 Chava Rodriguez MD [address] [place], [place] [phone] Cardiovascular Disease 9/16/21 Sara Garcia MD [address] [place] [address] Service Technician Endocrinology, Diabetes & Metabolism 12/30/20 Rodrigo López MD [address] [place] [address] Surgeon Surgical Oncology 03/08/21 Erwin David MD [address] [place] [address] Oncologist Medical Oncology 03/08/21 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 Specialty Start Date End Date Blanca Cruz MD [address] [place] [address] PCP - General Family Medicine 10/29/20 Matt Nunez, [facility] [address] [place] [address] Oncologist Hematology 10/29/20 Chava Rodriguez MD [address] [facility] [address] [place] [address] Cardiovascular Disease 10/29/20 Sara Garcia MD [address] [place] [address] Service Technician Endocrinology, Diabetes & Metabolism 12/30/20 Rodrigo López MD [address] [place] [address] Surgeon Surgical Oncology 03/08/21 Erwin David MD [address] [place] [address] Oncologist Medical Oncology 03/08/21 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 Specialty Start Date End Date Blanca Cruz MD [address] [place] [address] PCP - General Family Medicine 10/29/20 Matt Nunez, [facility] [address] [place], [place] [address] Oncologist Hematology 10/29/20 Chava Rodriguez MD [facility] [address] [place] [address] Cardiovascular Disease 10/29/20 Sara Garcia MD [address] [place] [address] Service Technician Endocrinology, Diabetes & Metabolism 12/30/20 Rodrigo López MD [address] [place] [address] Surgeon Surgical Oncology 03/08/21 Erwin David MD [address] [place] [address] Oncologist Medical Oncology 03/08/21 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 Specialty Start Date End Date Blanca Cruz MD [address] [place] [address] PCP - General Family Medicine 10/29/20 Matt Nunez [facility] [facility] [place] [address] Oncologist Hematology 10/29/20 Chava Rodriguez MD [facility] [address] [place] [address] Cardiovascular Disease 10/29/20 Sara Garcia MD [address] [place] [address] Service Technician Endocrinology, Diabetes & Metabolism 12/30/20 Rodrigo López MD [address] [facility] 8th [place] [address] Surgeon Surgical Oncology 03/08/21 Erwin David MD [facility] [facility] 10[address] [place] [address] Oncologist Medical Oncology 03/08/21 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 Specialty Start Date End Date Blanca Cruz MD [address] [place] [address] PCP - General Family Medicine 10/29/20 Matt Nunez [facility] [address] [facility] [place] [address] Oncologist Hematology 10/29/20 Chava Rodriguez MD [address] [place] [address] Cardiovascular Disease 10/29/20 Sara Garcia MD [address] [place] [address] Service Technician Endocrinology, Diabetes & Metabolism 12/30/20 Rodrigo López MD [address] [place] [address] Surgeon Surgical Oncology 03/08/21 Erwin David MD [address] [place] [address] Oncologist Medical Oncology 03/08/21 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 Specialty Start Date End Date Blanca Cruz MD [address] [place] [address] PCP - General Family Medicine 10/29/20 Matt Nunez, [facility] [address] [place] [address] Oncologist Hematology 10/29/20 Chava Rodriguez MD [address] [facility] [address] [place] [address] Cardiovascular Disease 10/29/20 Sara Garcia MD [address] [place] [address] Service Technician Endocrinology, Diabetes & Metabolism 12/30/20 Rodrigo López MD [address] [place] [address] Surgeon Surgical Oncology 03/08/21 Erwin David MD [address] [place] [address] Oncologist Medical Oncology 03/08/21 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 Specialty Start Date End Date Blanca Cruz MD [address] [place] [address] PCP - General Family Medicine 10/29/20 Matt Nunez [facility] [address] [place], [place] [address] Oncologist Hematology 10/29/20 Chava Rodriguez MD 1761 [facility] Phys[facility] [address] [place] [address] Cardiovascular Disease 10/29/20 Sara Garcia MD [address] [place] [address] Service Technician Endocrinology, Diabetes & Metabolism 12/30/20 Rodrigo López MD [address] [facility] 8th [place] [address] Surgeon Surgical Oncology 03/08/21 Erwin David MD [address] [facility] [address] [place] [address] Oncologist Medical Oncology 03/08/21 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 Specialty Start Date End Date Blanca Cruz MD [address] [place] [address] PCP - General Family Medicine 10/29/20 Matt Nunez [facility] [address] [place] [address] Oncologist Hematology 10/29/20 Chava Rodriguez MD [address] [place] [address] Cardiovascular Disease 10/29/20 Sara Garcia MD [address] [place] [address] Service Technician Endocrinology, Diabetes & Metabolism 12/30/20 Rodrigo López MD [address] [facility] [address] [place] [address] Surgeon Surgical Oncology 03/08/21 Erwin David MD [address] [facility] [address] [place] [address] Oncologist Medical Oncology 03/08/21 Feliciano Ibarra MD [address] [place] [address] Orthopaedic Surgeon Orthopaedic Surgery 03/31/23 Team Status: Inactive Member Role Status Dates Dr. Blanca Cruz MD Primary Care Provider, Referrin g Provider Active Dr. Chava Rodriguez MD Attending Provider Active Team Status: Inactive Member Role Status Dates Dr. Blanca Cruz MD Primary Care Prov ider, Attending Provider, Referring Provider Active 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 Specialty Start Date End Date Blanca Cruz MD [address] [place] [address] PCP - General Family Medicine 10/29/20 Matt Nunez [facility] [address] [place] [address] Oncologist Hematology 10/29/20 Chava Rodriguez MD [address] [facility] [facility] [address] [place] [address] Cardiovascular Disease 10/29/20 Sara Garcia MD [address] [place] [address] Service Technician Endocrinology, Diabetes & Metabolism 12/30/20 Rodrigo López MD [facility] [address] [place] [address] Surgeon Surgical Oncology 03/08/21 Erwin David MD [address] [facility] [address] [place] [address] Oncologist Medical Oncology 03/08/21 Feliciano Ibarra MD [address] [place] [address] Orthopaedic Surgeon Orthopaedic Surgery 03/31/23 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 Specialty Start Date End Date Blanca Cruz MD [address] [place] [address] PCP - General Family Medicine 10/29/20 Matt Nunez [facility] [address] [place] [address] Oncologist Hematology 10/29/20 Chava Rodriguez MD [address] [place] [address] Cardiovascular Disease 10/29/20 Sara Garcia MD [address] [place] [address] Service Technician Endocrinology, Diabetes & Metabolism 12/30/20 Rodrigo López MD [address] [facility] [address] [place] [address] Surgeon Surgical Oncology 03/08/21 Erwin David MD [address] [facility] [address] [place] [address] Oncologist Medical Oncology 03/08/21 Feliciano Ibarra MD [address] [place] [address] Orthopaedic Surgeon Orthopaedic Surgery 03/31/23 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 Specialty Start Date End Date Blanca Cruz MD [address] [place] [address] PCP - General Family Medicine 10/29/20 Matt Nunez [facility] [address] [place] [address] Oncologist Hematology 10/29/20 Chava Rodriguez MD [address] [place] [address] Cardiovascular Disease 10/29/20 Sara Garcia MD [address] [place] [address] Service Technician Endocrinology, Diabetes & Metabolism 12/30/20 Rodrigo López MD [address] [place] [address] Surgeon Surgical Oncology 03/08/21 Erwin David MD [address] [place] [address] Oncologist Medical Oncology 03/08/21 Feliciano Ibarra MD [address] [place] [address] Orthopaedic Surgeon Orthopaedic Surgery 03/31/23 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 Specialty Start Date End Date Blanca Cruz MD [address] [place] [address] PCP - General Family Medicine 10/29/20 Matt Nunez, [facility] [address] [place] [address] Oncologist Hematology 10/29/20 Chava Rodriguez MD [facility] [address] [place] [address] Cardiovascular Disease 10/29/20 Sara Garcia MD [address] [place] [address] Service Technician Endocrinology, Diabetes & Metabolism 12/30/20 Rodrigo López MD [address] [place] [address] Surgeon Surgical Oncology 03/08/21 Erwin David MD [address] [place] [address] Oncologist Medical Oncology 03/08/21 Feliciano Ibarra MD [address] [place] [address] Orthopaedic Surgeon Orthopaedic Surgery 03/31/23 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 Specialty Start Date End Date Blanca Cruz MD [address] [place] [address] PCP - General Family Medicine 10/29/20 Matt Nunez [facility] [address] [place] [address] Oncologist Hematology 10/29/20 Chava Rodriguez MD [address] [facility] [facility] [address] [place] [address] Cardiovascular Disease 10/29/20 Sara Garcia MD [address] [place] [address] Service Technician Endocrinology, Diabetes & Metabolism 12/30/20 Rodrigo López MD [address] [place] [address] Surgeon Surgical Oncology 03/08/21 Erwin David MD [address] [place] [address] Oncologist Medical Oncology 03/08/21 Feliciano Ibarra MD [address] [place] [address] Orthopaedic Surgeon Orthopaedic Surgery 03/31/23 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 Specialty Start Date End Date Blanca Cruz MD [address] [place] [address] PCP - General Family Medicine 10/29/20 Matt Nunez, [facility] [address] [place], [place] [address] Oncologist Hematology 10/29/20 Chava Rodriguez MD [address] [facility] [address] [place] [address] Cardiovascular Disease 10/29/20 Sara Garcia MD [address] [place] [address] Service Technician Endocrinology, Diabetes & Metabolism 12/30/20 Rodrigo López MD [address] [place] [address] Surgeon Surgical Oncology 03/08/21 Erwin David MD [address] [place] [address] Oncologist Medical Oncology 03/08/21 Feliciano Ibarra MD [address] [place] [address] Orthopaedic Surgeon Orthopaedic Surgery 03/31/23 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 Specialty Start Date End Date Blanca Cruz MD [address] [place] [address] PCP - General Family Medicine 10/29/20 Matt Nunez [facility] [address] [place] [address] Oncologist Hematology 10/29/20 Chava Rodriguez MD 1761 [facility] Phys[facility] [address] [place] [address] Cardiovascular Disease 10/29/20 Sara Garcia MD [address] [place] [address] Service Technician Endocrinology, Diabetes & Metabolism 12/30/20 Rodrigo López MD [address] [facility] 8th [place] [address] Surgeon Surgical Oncology 03/08/21 Erwin David MD [address] [facility] 10th [place] [address] Oncologist Medical Oncology 03/08/21 Feliciano Ibarra MD [address] [place] [address] Orthopaedic Surgeon Orthopaedic Surgery 03/31/23 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 Specialty Start Date End Date Blanca Cruz MD [address] [place] [address] PCP - General Family Medicine 10/29/20 Matt Nunez [facility] [address] [place] [address] Oncologist Hematology 10/29/20 Chava Rodriguez MD [address] [facility] [place] [address] Cardiovascular Disease 10/29/20 Sara Garcia MD [address] [place] [address] Service Technician Endocrinology, Diabetes & Metabolism 12/30/20 Rodrigo López MD [address] [facility] 8th [place] [address] Surgeon Surgical Oncology 03/08/21 Erwin David MD [address] [facility] [address] [place] [address] Oncologist Medical Oncology 03/08/21 Feliciano Ibarra MD [address] [place] [address] Orthopaedic Surgeon Orthopaedic Surgery 03/31/23 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 Specialty Start Date End Date Blanca Cruz MD [address] [place] [address] PCP - General Family Medicine 10/29/20 Matt Nunez [facility] [address] [place] [address] Oncologist Hematology 10/29/20 Chava Rodriguez MD 1761 [facility] [place] [address] Cardiovascular Disease 10/29/20 Sara Garcia MD [address] [place] [phone] Service Technician Endocrinology, Diabetes & Metabolism 12/30/20 Rodrigo López MD [address] [facility] [address] [place] [address] Surgeon Surgical Oncology 03/08/21 Erwin David MD [address] [facility] [address] [place] [address] Oncologist Medical Oncology 03/08/21 Feliciano Ibarra MD [address] [place] [address] Orthopaedic Surgeon Orthopaedic Surgery 03/31/23 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 Specialty Start Date End Date Blanca Cruz MD [address] [place] [address] PCP - General Family Medicine 10/29/20 Matt Nunez, [facility] [address] [facility] [place] [address] Oncologist Hematology 10/29/20 Chava Rodriguez MD 1761 [facility] Phys[facility] [address] [place] [address] Cardiovascular Disease 10/29/20 Sara Garcia MD [address] [place] [address] Service Technician Endocrinology, Diabetes & Metabolism 12/30/20 Rodrigo López MD [address] [place] [address] Surgeon Surgical Oncology 03/08/21 Erwin David MD [address] [place] [address] Oncologist Medical Oncology 03/08/21 Feliciano Ibarra MD [address] [place] [address] Orthopaedic Surgeon Orthopaedic Surgery 03/31/23 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 Specialty Start Date End Date Blanca Cruz MD [address] [place] [address] PCP - General Family Medicine 10/29/20 Matt Nunez [facility] [address] [place] [address] Oncologist Hematology 10/29/20 Chava Rodriguez MD 1761 [facility] Phys[facility] [address] [place] [address] Cardiovascular Disease 10/29/20 Sara Garcia MD [address] [place], [place] [phone] Service Technician Endocrinology, Diabetes & Metabolism 12/30/20 Rodrigo López MD [address] [place] [address] Surgeon Surgical Oncology 03/08/21 Erwin David MD [address] [place] [address] Oncologist Medical Oncology 03/08/21 Feliciano Ibarra MD [address] [place] [address] Orthopaedic Surgeon Orthopaedic Surgery 03/31/23 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 Specialty Start Date End Date Blanca Cruz MD [address] [place] [address] PCP - General Family Medicine 10/29/20 [facility] [address] [place] [address] Oncologist Hematology 10/29/20 Chava Rodriguez MD [address] [facility] [facility] [address] [place] [address] Cardiovascular Disease 10/29/20 Sara Garcia MD [address] [place] [address] Service Technician Endocrinology, Diabetes & Metabolism 12/30/20 Rodrigo López MD [address] [place] [address] Surgeon Surgical Oncology 03/08/21 Erwin David MD [address] [place] [address] Oncologist Medical Oncology 03/08/21 Feliciano Ibarra MD [address] [place] [address] Orthopaedic Surgeon Orthopaedic Surgery 03/31/23 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 Specialty Start Date End Date Blanca Cruz MD [address] [place] [address] PCP - General Family Medicine 10/29/20 Matt Nunez, [facility] [address] [place], [place] [phone] Oncologist Hematology 10/29/20 Chava Rodriguez MD 1761 [facility] [address] [place] [address] [phone] Cardiovascular Disease 10/29/20 Sara Garcia MD [address] [place] [address] Service Technician Endocrinology, Diabetes & Metabolism 12/30/20 Rodrigo López MD [address] [place] 8th [place] [address] Surgeon Surgical Oncology 03/08/21 Erwin David MD [address] [place] 10th [place] [address] Oncologist Medical Oncology 03/08/21 Feliciano Ibarra MD [address] [place] [address] Orthopaedic Surgeon Orthopaedic Surgery 03/31/23 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 Specialty Start Date End Date Blanca Cruz MD [address] [place] [phone] PCP - General Family Medicine 10/29/20 Matt Nunez, [facility] [address] [place], [place] 462921 Oncologist Hematology 10/29/20 Chava Rodriguez MD 1761 [facility] [address] [place] [address] [phone] Cardiovascular Disease 10/29/20 Sara Garcia MD [address] [place] [address] Service Technician Endocrinology, Diabetes & Metabolism 12/30/20 Rodrigo López MD [address] [place] 8th [place] [address] Surgeon Surgical Oncology 03/08/21 Erwin David MD [address] [facility] 10th [place] [address] Oncologist Medical Oncology 03/08/21 Feliciano Ibarra MD [address] [place] [address] Orthopaedic Surgeon Orthopaedic Surgery 03/31/23 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 Specialty Start Date End Date Blanca Cruz MD [address] [place] [phone] PCP - General Family Medicine 10/29/20 Matt Nunez [facility] [address] [place], [place] 720491 Oncologist Hematology 10/29/20 Chava Rodriguez MD [address] [facility] [address] [place] [address] [phone] Cardiovascular Disease 10/29/20 Sara Garcia MD [address] [place] [address] Service Technician Endocrinology, Diabetes & Metabolism 12/30/20 Rodrigo López MD [address] [facility] 8th [place] [address] Surgeon Surgical Oncology 03/08/21 Erwin David MD [address] [facility] 10th [place] [address] Oncologist Medical Oncology 03/08/21 Feliciano Ibarra MD 49[address] [place] [address] Orthopaedic Surgeon Orthopaedic Surgery 03/31/23 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 Specialty Start Date End Date Blanca Cruz MD [address] [place] [address] PCP - General Family Medicine 10/29/20 Matt Nunez [facility] [address] [place] [address] Oncologist Hematology 10/29/20 Chava Rodriguez MD [address] [facility] [address] [place] [address] Cardiovascular Disease 10/29/20 Sara Garcia MD [address] [place], [place] [phone] Service Technician Endocrinology, Diabetes & Metabolism 12/30/20 Rodrigo López MD [address] [facility] 8th [place] [address] Surgeon Surgical Oncology 03/08/21 Erwin David MD [address] [facility] 10th [place] [address] Oncologist Medical Oncology 03/08/21 Feliciano Ibarra MD [address] [place] [phone] Orthopaedic Surgeon Orthopaedic Surgery 03/31/23 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 Specialty Start Date End Date Blanca Cruz MD [address] [place] [address] PCP - General Family Medicine 10/29/20 Matt Nunez, [facility] [address] [place] [address] Oncologist Hematology 10/29/20 Chava Rodriguez MD [address] [facility] [address] [place] [address] Cardiovascular Disease 10/29/20 Sara Garcia MD [address] [place] [address] Service Technician Endocrinology, Diabetes & Metabolism 12/30/20 Rodrigo López MD [address] [place] [address] [place] [address] Surgeon Surgical Oncology 03/08/21 Erwin David MD [address] [place] [address] [place] [address] Oncologist Medical Oncology 03/08/21 Feliciano Ibarra MD [address] [place] [phone] Orthopaedic Surgeon Orthopaedic Surgery 03/31/23 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 Specialty Start Date End Date Blanca Cruz MD [address] [place] [address] PCP - General Family Medicine 10/29/20 Matt Nunez, [facility] [address] [place] [address] Oncologist Hematology 10/29/20 Chava Rodriguez MD 1761 [facility] [address] [place] [address] Cardiovascular Disease 10/29/20 Sara Garcia MD [address] [place] [address] Service Technician Endocrinology, Diabetes & Metabolism 12/30/20 Rodrigo López MD [address] [place] [address] [place] [address] Surgeon Surgical Oncology 03/08/21 Erwin David MD [address] [place] [address] [place] [address] Oncologist Medical Oncology 03/08/21 Feliciano Ibarra MD [address] [place] [phone] Orthopaedic Surgeon Orthopaedic Surgery 03/31/23 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 Specialty Start Date End Date Blanca Cruz MD [address] [place] [address] PCP - General Family Medicine 10/29/20 Matt Nunez MB [facility] 17[address] [place] [address] Oncologist Hematology 10/29/20 Chava Rodriguez MD [facility] [address] [place] [address] Cardiovascular Disease 10/29/20 Sara Garcia MD [address] [place] [address] Service Technician Endocrinology, Diabetes & Metabolism 12/30/20 Rodrigo López MD [address] [place] [address] [place] [address] Surgeon Surgical Oncology 03/08/21 Erwin David MD [address] [place] [address] [place] [address] Oncologist Medical Oncology 03/08/21 Feliciano Ibarra MD [address] [place] [phone] Orthopaedic Surgeon Orthopaedic Surgery 03/31/23 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 Specialty Start Date End Date Blanca Cruz MD PCP - General Family Medicine 10/29/20 Matt Nunez MB [facility] 176 [facility] [address] [place], [place] [phone] Oncologist Hematology 10/29/20 Chava Rodriguez MD [address] [place], [place] 066091 Cardiovascular Disease 10/29/20 Sara Garcia MD [address] [place] [address] Service Technician Endocrinology, Diabetes & Metabolism 12/30/20 Rodrigo López MD [address] [place] 8th [place] [address] Surgeon Surgical Oncology 03/08/21 Erwin David MD [address] [place] 10th [place] [address] Oncologist Medical Oncology 03/08/21 Feliciano Ibarra MD [address] [place] 10th [place] [address] Orthopaedic Surgeon Orthopaedic Surgery 03/31/23 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 Specialty Start Date End Date Blanca Cruz MD PCP - General Family Medicine 10/29/20 Matt Nunez MB [facility] [address] [place], [place] 218351 Oncologist Hematology 10/29/20 Chava Rodriguez MD [address] [place], [place] 172721 Cardiovascular Disease 10/29/20 Sara Garcia MD [address] [place] [address] Service Technician Endocrinology, Diabetes & Metabolism 12/30/20 Rodrigo López MD 2049 [facility] 8th [place] [address] Surgeon Surgical Oncology 03/08/21 Erwin David MD 2049 [facility] 10th [place] [address] Oncologist Medical Oncology 03/08/21 Feliciano Ibarra MD 2049 [facility] 10th [place] [address] Orthopaedic Surgeon Orthopaedic Surgery 03/31/23 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 Specialty Start Date End Date Blanca Cruz MD PCP - General Family Medicine 10/29/20 Matt Nunez MB [facility] [address] [place], [place] 813921 Oncologist Hematology 10/29/20 Chava Rodriguez MD [address] [place] 517071 Cardiovascular Disease 10/29/20 Sara Garcia MD [address] [place] [address] Service Technician Endocrinology, Diabetes & Metabolism 12/30/20 Rodrigo López MD [address] [place] 8th [place] [address] Surgeon Surgical Oncology 03/08/21 Erwin David MD [address] [place] 10th [place] [address] Oncologist Medical Oncology 03/08/21 Feliciano Ibarra MD [address] [place] 10th [place] [address] Orthopaedic Surgeon Orthopaedic Surgery 03/31/23 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 Specialty Start Date End Date Blanca Cruz MD PCP - General Family Medicine 10/29/20 Matt Nunez MB [facility] [address] [place] 033506 [phone] Oncologist Hematology 10/29/20 Chava Rodriguez MD [address] [place] [address] Cardiovascular Disease 10/29/20 Sara Garcia MD 4 [place] [address] Service Technician Endocrinology, Diabetes & Metabolism 12/30/20 Rodrigo López MD [address] [place] [address] [place] [address] Surgeon Surgical Oncology 03/08/21 Erwin David MD [address] [place] [address] [place] [address] Oncologist Medical Oncology 03/08/21 Feliciano Ibarra MD [address] [place] [address] [place] [address] Orthopaedic Surgeon Orthopaedic Surgery 03/31/23 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 Specialty Start Date End Date Blanca Cruz MD PCP - General Family Medicine 10/29/20 Matt Nunez MB [facility] 176 [place] [address] Oncologist Hematology 10/29/20 Chava Rodriguez MD 176 [place] [address] Cardiovascular Disease 10/29/20 Sara Garcia MD [address] [place] [address] Service Technician Endocrinology, Diabetes & Metabolism 12/30/20 Rodrigo López MD [address] [place] [address] [place] [address] Surgeon Surgical Oncology 03/08/21 Erwin David MD [address] [place] 10th Floor [place] [phone] Oncologist Medical Oncology 03/08/21 Feliciano Ibarra MD [address] [place] 10th Floor [place] [phone] Orthopaedic Surgeon Orthopaedic Surgery 03/31/23 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 Specialty Start Date End Date Blanca Cruz MD PCP - General Family Medicine 10/29/20 Matt Nunez MB [facility] 176 [place], [place] 496171 Oncologist Hematology 10/29/20 Chava Rodriguez MD 176 [place], [place] 796001 Cardiovascular Disease 10/29/20 Sara Garcia MD [address] [place] [address] Service Technician Endocrinology, Diabetes & Metabolism 12/30/20 Rodrigo López MD [address] [place] 8th [place] [address] Surgeon Surgical Oncology 03/08/21 Erwin David MD [address] [place] 10th [place] [address] Oncologist Medical Oncology 03/08/21 Feliciano Ibarra MD [address] [place] [address] [place] [phone] Orthopaedic Surgeon Orthopaedic Surgery 03/31/23 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 Specialty Start Date End Date Blanca Cruz MD PCP - General Family Medicine 10/29/20 Matt Nunez MB [facility] [address] [place] 789051 Oncologist Hematology 10/29/20 Chava Rodriguez MD [address] [place] [address] Cardiovascular Disease 10/29/20 Sara Garcia MD [address] [place] [address] Service Technician Endocrinology, Diabetes & Metabolism 12/30/20 Rodrigo López MD [address] [place] [address] Surgeon Surgical Oncology 03/08/21 Erwin David MD [address] [place] [address] [place] [phone] Oncologist Medical Oncology 03/08/21 Feliciano Ibarra MD [address] [place] [address] [place] [phone] Orthopaedic Surgeon Orthopaedic Surgery 03/31/23 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 Specialty Start Date End Date Blanca Cruz MD PCP - General Family Medicine 10/29/20 Matt Nunez MB [facility] [address] [place] [address]771 Oncologist Hematology 10/29/20 Chava Rodriguez MD [address] [place] [address] Cardiovascular Disease 10/29/20 Sara Garcia MD [address] [place] [address] Service Technician Endocrinology, Diabetes & Metabolism 12/30/20 Rodrigo López MD [address] [place] 8th [place] [address] Surgeon Surgical Oncology 03/08/21 Erwin David MD [address] [place] 10th [place] [address] Oncologist Medical Oncology 03/08/21 Feliciano Ibarra MD [address] [place] 10th [place] [address] Orthopaedic Surgeon Orthopaedic Surgery 03/31/23 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 Specialty Start Date End Date Blanca Cruz MD PCP - General Family Medicine 10/29/20 Matt Nunez MB [facility] [address] [place] [address] Oncologist Hematology 10/29/20 Chava Rodriguez MD [address] [place] [address] Cardiovascular Disease 10/29/20 Sara Garcia MD [address] [place] [address] Service Technician Endocrinology, Diabetes & Metabolism 12/30/20 Rodrigo López MD [address] [facility] 8th [place] [address] Surgeon Surgical Oncology 03/08/21 Erwin David MD [address] [facility] 10th [place] [address] Oncologist Medical Oncology 03/08/21 Feliciano Ibarra MD [address] [facility] [address] [place] [address] Orthopaedic Surgeon Orthopaedic Surgery 03/31/23 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 Specialty Start Date End Date Blanca Cruz MD PCP - General Family Medicine 10/29/20 Matt Nunez MB [facility] [address] [place] [address] Oncologist Hematology 10/29/20 Chava Rdoriguez MD [address] [place] [address] Cardiovascular Disease 10/29/20 Sara Garcia MD [address] [place] [address] Service Technician Endocrinology, Diabetes & Metabolism 12/30/20 Rodrigo López MD [address] [place] [address] [place] [address] Surgeon Surgical Oncology 03/08/21 Erwin David MD [address] [place] [address] [place] [address] Oncologist Medical Oncology 03/08/21 Feliciano Ibarra MD [address] [place] [address] [place] [address] Orthopaedic Surgeon Orthopaedic Surgery 03/31/23 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 Specialty Start Date End Date Blanca Cruz MD PCP - General Family Medicine 10/29/20 Matt Nunez MB [facility] [address] [place], [place] 116781 Oncologist Hematology 10/29/20 Chava Rodriguez MD [address] [place], [place] 710341 Cardiovascular Disease 10/29/20 Sara Garcia MD [address] [place] [address] Service Technician Endocrinology, Diabetes & Metabolism 12/30/20 Rodrigo López MD [address] [place] [address] [place] [address] Surgeon Surgical Oncology 03/08/21 Erwin David MD [address] [place] 10th Floor [place] [phone] Oncologist Medical Oncology 03/08/21 Feliciano Ibarra MD [address] [place] 10th Floor [place] [phone] Orthopaedic Surgeon Orthopaedic Surgery 03/31/23 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 Specialty Start Date End Date Blanca Cruz MD PCP - General Family Medicine 10/29/20 Matt Nunez MB [facility] [address] [place], [place] 575[address] Oncologist Hematology 10/29/20 Chava Rodriguez MD [address] [place] [address] Cardiovascular Disease 10/29/20 Sara Garcia MD [address] [place] [address] Service Technician Endocrinology, Diabetes & Metabolism 12/30/20 Rodrigo López MD [address] [place] 8th [place] [address] Surgeon Surgical Oncology 03/08/21 Erwin David MD [address] [place] [address] [place] [phone] Oncologist Medical Oncology 03/08/21 Feliciano Ibarra MD [address] [place] [address] [place] [phone] Orthopaedic Surgeon Orthopaedic Surgery 03/31/23 Team Status: Active Member Role Status Dannie Wellington MD Primary Care Provider Active Team Status: Inactive Member Role Status Dates Dr. Blanca Cruz MD Primary Care Provider Active Start: April 01, 2024 End: April 01, 2024 Dr. Blanca Cruz MD Attending Provider Active Start: April 01, 2024 End: April 01, 2024 Dr. Blanca Cruz MD Referring Provider Active Start: April 01, 2024 End: April 01, 2024 Dr. Harmony Morgan MD Other Provider Active Star t: April 01, 2024 End: April 01, 2024 Team Status: Inactive Member Role Status Dates Dr. Blanca Cruz MD Primary Care Provider Active Start: June 06, 2024 End: June 06, 2024 Dr. Blanca Cruz MD Referring Provider Active Start: June 06, 2024 End: June 06, 2024 Dr. Chava Rodriguez MD Attending Provider Active S tart: June 06, 2024 End: June 06, 2024 Team Status: Inactive Member Role Status Dates Dr. Blanca Cruz MD Primary Care Provider Active Start: June 06, 2024 End: June 06, 2024 Dr. Sara Garcia MD Attending Provider Active S tart: June 06, 2024 End: June 06, 2024 Dr. Sara Garcia MD Referring Provider Active S tart: June 06, 2024 End: June 06, 2024 Team Status: Inactive Member Role Status Dates Dario Wellington MD Primary Care Provider Active St art: June 11, 2024 End: June 11, 2024 Dr. Vicente Givens MD Attending Provider Active Sta rt: June 11, 2024 End: June 11, 2024 Dr. Vicente Givens MD Emergency Provider Active Sta rt: June 11, 2024 End: June 11, 2024 Team Status: Inactive Member Role Status Dannie Wellington MD Primary Care Provider Active St art: July 15, 2024 End: July 15, 2024 EMILY JARAMILLO Attending Provider Active Start: 2024 End: July 15, 2024 EMILY JARAMILLO Referring Provider Active Start: J une 2024 End: July 15, 2024 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 Specialty Start Date End Date Blanca Cruz MD PCP - General Family Medicine 10/29/20 Matt Nunez MB [facility] [address] [facility] [place], [place] 432081 Oncologist Hematology 10/29/20 Chava Rodriguez MD [address] [facility] [place], [place] 593661 Cardiovascular Disease 10/29/20 Sara Garcia MD [address] [place] [address] Service Technician Endocrinology, Diabetes & Metabolism 12/30/20 Rodrigo López MD [address] [place] 8th [place] [address] Surgeon Surgical Oncology 03/08/21 Erwin David MD [address] [place] 10th [place] [address] Oncologist Medical Oncology 03/08/21 Feliciano Ibarra MD [address] [place] 10th [place] [address] Orthopaedic Surgeon Orthopaedic Surgery 03/31/23 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 Specialty Start Date End Date Blanca Cruz MD PCP - General Family Medicine 10/29/20 Matt Nunez MB [facility] [address] [place], [place] 405471 Oncologist Hematology 10/29/20 Chava Rodriguez MD [address] [place] [address] Cardiovascular Disease 10/29/20 Sara Garcia MD [address] [place] [address] Service Technician Endocrinology, Diabetes & Metabolism 12/30/20 Rodrigo López MD [address] [facility] [address] [place] [address] Surgeon Surgical Oncology 03/08/21 Erwin David MD [address] [facility] [address] [place] [address] Oncologist Medical Oncology 03/08/21 Feliciano Ibarra MD [facility] [place] [address] Orthopaedic Surgeon Orthopaedic Surgery 03/31/23 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 Specialty Start Date End Date Blanca Cruz MD PCP - General Family Medicine 10/29/20 Matt Nunez MB [facility] [address] [place] [address] Oncologist Hematology 10/29/20 Chava Rodriguez MD [address] [place] [address] Cardiovascular Disease 10/29/20 Sara Garcia MD [address] [place] [address] Service Technician Endocrinology, Diabetes & Metabolism 12/30/20 Rodrigo López MD [address] [place] [address] [place] [address] Surgeon Surgical Oncology 03/08/21 Erwin David MD [address] [place] [address] [place] [address] Oncologist Medical Oncology 03/08/21 Feliciano Ibarra MD [address] [place] [address] [place] [address] Orthopaedic Surgeon Orthopaedic Surgery 03/31/23 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 Specialty Start Date End Date Blanca Cruz MD PCP - General Family Medicine 10/29/20 Matt Nunez MB [facility] [address] [place], [place] 437641 Oncologist Hematology 10/29/20 Chava Rodriguez MD [address] [place], [place] [phone] Cardiovascular Disease 10/29/20 Sara Garcia MD [address] [place] [address] Service Technician Endocrinology, Diabetes & Metabolism 12/30/20 Rodrigo López MD [address] [place] [address] [place] [phone] Surgeon Surgical Oncology 03/08/21 Erwin David MD [address] [place] [address] [place] [address] Oncologist Medical Oncology 03/08/21 Feliciano Ibarra MD [address] [place] [address] [place] [phone] Orthopaedic Surgeon Orthopaedic Surgery 03/31/23 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 Specialty Start Date End Date Blanca Cruz MD PCP - General Family Medicine 10/29/20 Matt Nunez MB [facility] [address] [place] [address] Oncologist Hematology 10/29/20 Chava Rodriguez MD [address] [place] [address] Cardiovascular Disease 10/29/20 Sara Garcia MD [address] [place], [place] [phone] Service Technician Endocrinology, Diabetes & Metabolism 12/30/20 Rodrigo López MD [address] [place] [address] [place] [address] Surgeon Surgical Oncology 03/08/21 Erwin David MD [address] [place] [address] [place] [address] Oncologist Medical Oncology 03/08/21 Feliciano Ibarra MD [address] [place] [address] Floor [place] [phone] Orthopaedic Surgeon Orthopaedic Surgery 03/31/23 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 Specialty Start Date End Date Blanca Cruz MD PCP - General Family Medicine 10/29/20 Matt Nunez MB [facility] 176 [place], [place] 506941 Oncologist Hematology 10/29/20 Chava Rodriguez MD 1760 [facility] [place], [place] 708341 Cardiovascular Disease 10/29/20 Sara Garcia MD [address] [place] [address] Service Technician Endocrinology, Diabetes & Metabolism 12/30/20 Rodrigo López MD [address] [place] [address] Floor [place] [phone] Surgeon Surgical Oncology 03/08/21 Erwin David MD [address] [place] 10th [place] [address] Oncologist Medical Oncology 03/08/21 Feliciano Ibarra MD [address] [place] 10[address] Floor [place] [phone] Orthopaedic Surgeon Orthopaedic Surgery 03/31/23 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 Specialty Start Date End Date Blanca Cruz MD PCP - General Family Medicine 10/29/20 Matt Nunez MB [facility] [address] [place], [place] 304541 Oncologist Hematology 10/29/20 Chava Rodriguez MD [address] [place] [place] 355191 Cardiovascular Disease 10/29/20 Sara Garcia MD [address] [place] [address] Service Technician Endocrinology, Diabetes & Metabolism 12/30/20 Rodrigo López MD [address] [place] [address] Surgeon Surgical Oncology 03/08/21 Erwin David MD [address] [place] [address] Oncologist Medical Oncology 03/08/21 Feliciano Ibarra MD [address] [place] [address] Orthopaedic Surgeon Orthopaedic Surgery 03/31/23 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 Specialty Start Date End Date Blanca Cruz MD PCP - General Family Medicine 10/29/20 Matt Nunez MB [facility] [address] [place] [address] Oncologist Hematology 10/29/20 Chava Rodriguez MD [address] [place], [place] 713771 Cardiovascular Disease 10/29/20 Sara Garcia MD [address] [place] [address] Service Technician Endocrinology, Diabetes & Metabolism 12/30/20 Rodrigo López MD [address] [place] [address] Surgeon Surgical Oncology 03/08/21 Erwin David MD [address] [place] [address] Oncologist Medical Oncology 03/08/21 Feliciano Ibarra MD [address] [place], [place] 6156[address] Orthopaedic Surgeon Orthopaedic Surgery 03/31/23 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 Specialty Start Date End Date Blanca Cruz MD PCP - General Family Medicine 10/29/20 Matt Nunez [facility] [facility] [address] [place] [place], [place] [id number] Oncologist Hematology 10/29/20 Chava Rodriguez MD [address] [place], [place] [address] Cardiovascular Disease 10/29/20 Sara Garcia MD [address] [place] [address] Service Technician Endocrinology, Diabetes & Metabolism 12/30/20 Rodrigo López MD [address] [place], [place] [id number] Surgeon Surgical Oncology 03/08/21 Erwin David MD [address] [place] [address] Oncologist Medical Oncology 03/08/21 Feliciano Ibarra MD [address] [place], [place] [id number] Orthopaedic Surgeon Orthopaedic Surgery 03/31/23 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 Specialty Start Date End Date Blanca Cruz MD PCP - General Family Medicine 10/29/20 Matt Nunez MB [facility] [address] [place] [address] Oncologist Hematology 10/29/20 Chava Rodriguez MD [address] [place] [address] Cardiovascular Disease 10/29/20 Sara Garcia MD [address] [place], [place] [id number] Service Technician Endocrinology, Diabetes & Metabolism 12/30/20 Rodrigo López MD [address] [place], [place] [id number] Surgeon Surgical Oncology 03/08/21 Erwin David MD [address] [place], [place] [id number] Oncologist Medical Oncology 03/08/21 Feliciano Ibarra MD [address] [place] [id number] Orthopaedic Surgeon Orthopaedic Surgery 03/31/23 Goals (unrecognized section and content) Goals may be documented in a n alternate sectionGoals may be documented in an alternate sectionGoals may be documented in an alternate sectionGoals may be documented in an alternate sectionGoals may be documented in an alternate sectionGoals may be documented in an alternate sectionGoals may be documented in an alternate sectionGoals may be documented in an alternate sectionGoals may be documented in an alternate sectionGoals may be documented in an alternate sectionGoals may be documented in an alternate section Reason for Visit (unrecogniz ed section and content) Reason Comments Infusion Visit C3d1 Luta Specialty Diagnoses / Procedures Referred By Allison yuen Referred To Contact Diagnoses Neuroendocrine cancer Erwin David MD [address] [address] Phone: tel: fax: Erwin David MD [address] [address] Phone: tel: fax: Referral ID Status Reason Start Date Expiration Date V isits Requested Visits Authorized [id number] Authorized 06/19/2024 100 100 Reason Comments Infusion Visit Reason Comments Follow-up Reason Comments Labs Only Reason Comments Follow-up 2 blood clots in rig ht leg 2 weeks ago tomorrow did U/S- right side of liver, was supposed to be on blood thinners (wasn't approved). 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 Specialty Diagnoses / Procedures Referred By Allison yuen Referred To Contact Diagnoses 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 Procedures NUC PET NEUROENDOCRINE CHG NUC THERAPY HYPERTHYROID SUBSEQUENT Erwin David MD [address] [address] Referral ID Status Reason Start Date Expiration Date V isits Requested Visits Authorized [id number] New Request 08/27/2021 09/21/2022 1 1 Reason Comments 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 Imaging Results Review recent scans Specialty Diagnoses / Procedures Referred By Contac t Referred To Contact Diagnoses Neuroendocrine cancer Procedures CT CHEST WITHOUT CONTRAST CHG DIAGNOSTIC COMPUTED TOMOGRAPHY THORAX W/O CNTRST Britany Jane PAC [address] [address] Referral ID Status Reason Start Date Expiration Date V isits Requested Visits Authorized [id number] New Request 02/18/2022 03/15/2023 1 1 Specialty Diagnoses / Procedures Referred By Contac t Referred To Contact Diagnoses Neuroendocrine cancer Procedures MRI ABDOMEN/PELVIS WITHOUT AND WITH CONTRAST [place] MRI, ABDOMEN, COMBO [place] MRI, PELVIS, COMBO Britany Jane PAC [address] [address] Referral ID Status Reason Start Date Expiration Date V isits Requested Visits Authorized [id number] New Request 02/18/2022 03/15/2023 1 1 Reason Comments Follow-up Neuroendo- she had f nalini and had surgery on back and doing better. She is doing PT. This was done outside of [facility] part of [place]. Specialty Diagnoses / Procedures Referred By Contac t Referred To Contact Diagnoses Neuroendocrine tumor Procedures US THYROID Britany Jane PAC [address] [address] Referral ID Status Reason Start Date Expiration Date V isits Requested Visits Authorized [id number] New Request 10/07/2022 11/01/2023 1 1 Reason Comments New Patient Referred for evaluat ion of thyroid nodules that were noted on imaging. Follows with Dr. David for NEC. Specialty Diagnoses / Procedures Referred By Contac t Referred To Contact Endocrinology, Diabetes & Metabolism Diagnoses Neuroendocrine tumor Buck, Britany, PAC [address] [address] Referral ID Status Reason Start Date Expiration Date V isits Requested Visits Authorized [id number] New Request 10/07/2022 11/01/2023 1 1 Specialty Diagnoses / Procedures Referred By Contac t Referred To Contact Diagnoses Neuroendocrine tumor Procedures CT CHEST WITHOUT CONTRAST CHG DIAGNOSTIC COMPUTED TOMOGRAPHY THORAX W/O CNTRST Britany Jane, PAC [address] [address] Referral ID Status Reason Start Date Expiration Date V isits Requested Visits Authorized [id number] New Request 10/07/2022 11/01/2023 1 1 Specialty Diagnoses / Procedures Referred By Contac t Referred To Contact Diagnoses Neuroendocrine tumor Procedures MRI ABDOMEN/PELVIS WITHOUT AND WITH CONTRAST [place] MRI, ABDOMEN, COMBO [place] MRI, PELVIS, COMBO Britany Jane, PAC [address] [address] Referral ID Status Reason Start Date Expiration Date V isits Requested Visits Authorized [id number] New Request 10/07/2022 11/01/2023 1 1 Reason Comments Follow-up Net- 6 month follow up. Scans & labs done on 03/24 at [facility]. Gastrin elevated and concerned for reasoning. Worried she didn't fast long enough. Injection for bones, unsure if it is okay to have with NET dx and kristal shots. Pain Back and pelvic pain . Back pain all the time taking tylenol with some relief. At times hurts to stand up at all. Unsure on how to pursue osteoarthritis pain? Sees an orthopedic doctor end of April, locally in [place]. Edema Left lower extremity below knee. Dr. Ibarra with ortho wants to do MRI but unsure how often MRIs can be done. Wanted to have our MRI done first. Reason Comments Patient Update Reason Comments New Patient Specialty Diagnoses / Procedures Referred By Contac t Referred To Contact MR IMAGING Diagnoses Spinal stenosis of lumbar region with neurogenic claudication Procedures MRI LUMBAR SPINE WO IVCON MRI SPINAL CANAL LUMBAR W/O CONTRAST MATERIAL Eric Rincon MD [address] [place] [address] [place] [address] Referral ID Status Reason Start Date Expiration Date V isits Requested Visits Authorized [id number] Closed Auto-Generate d Referral 04/25/2023 05/24/2024 1 1 Specialty Diagnoses / Procedures Referred By Contac t Referred To Contact Diagnoses Metastatic malignant neuroendocrine tumor to liver Procedures NUC PET NEUROENDOCRINE CHG NUC THERAPY HYPERTHYROID SUBSEQUENT Britany Jane PA-C [address] [place] [address] Referral ID Status Reason Start Date Expiration Date V isits Requested Visits Authorized [id number] New Request 03/31/2023 04/24/2024 1 1 Reason Comments Follow-up NEC Results Labs and PET complet ed today Other Has been doing ok si nce last RTC. 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 Other Concerns with Sandos tatin injection around 08/10/23 causing reaction and jaundice with hospitalization Concerns with fatigue Reason Comments No Show Reason Comments New Patient Management for atria l fibrillation Specialty Diagnoses / Procedures Referred By Contac t Referred To Contact Cardiovascular Medicine Diagnoses Atrial fibrillation, chronic Tawana Deluca MD [address] [place] [address] Referral ID Status Reason Start Date Expiration Date V isits Requested Visits Authorized [id number] New Request 08/15/2023 09/08/2024 1 1 Reason Onset Date Comments Outside Medical Records Request 11/03/2023 See note Specialty Diagnoses / Procedures Referred By Allison yuen Referred To Contact Diagnoses Shortness of breath Procedures NUC MYOCARD PERF STRESS MIBI PHARM CHG MYOCARDIAL SPECT MULTIPLE STUDIES CHG MYOCARDIAL SPECT MULTIPLE STUDIES-T [place] CV STRS TST XERS&/OR RX CONT ECG I&R ONLY [place] CV STRS TST XERS&/OR RX CONT ECG W/O I&R Tiffany Babin MBBS [address] [address] Referral ID Status Reason Start Date Expiration Date V isits Requested Visits Authorized [id number] New Request 11/01/2023 11/25/2024 1 1 Reason Comments Follow-up Specialty Diagnoses / Procedures Referred By Allison yuen Referred To Contact Diagnoses Shortness of breath Coronary artery calcification Shortness of breath [R06.02] Coronary artery calcification [I25.10] Procedures [place] CATH PLMT L HRT & ARTS W/NJX & ANGIO IMG S&I SCHED CATHETERIZATION HEART CORONARY ANGIOGRAM WITH OR WITHOUT LV ANGIO Fifi Concepcion MD [address] [place] [address] [facility] [address] [place] [address] Referral ID Status Reason Start Date Expiration Date Visits Re quested Visits Authorized [id number] 1 1 Specialty Diagnoses / Procedures Referred By Allison yuen Referred To Contact Diagnoses Neuroendocrine carcinoma metastatic to liver Procedures MRI ABDOMEN WITH AND WITHOUT CONTRAST CHG MRI ABDOMEN W/O & W/CONTRAST MATERIAL Doris Maharaj APRN-TRUCK LEASING MANAGER [address] [place] [id number] Referral ID Status Reason Start Date Expiration Date V isits Requested Visits Authorized [id number] New Request 06/30/2023 07/24/2024 1 1 Specialty Diagnoses / Procedures Referred By Allison yuen Referred To Contact Diagnoses Neuroendocrine carcinoma metastatic to liver Procedures CT CHEST WITHOUT CONTRAST CHG DIAGNOSTIC COMPUTED TOMOGRAPHY THORAX W/O CNTRST Doris Maharaj FINANCIAL SERVICES MANAGER-TRUCK LEASING MANAGER [address] [phone] Referral ID Status Reason Start Date Expiration Date V isits Requested Visits Authorized [id number] New Request 06/30/2023 07/24/2024 1 1 Reason Comments Follow-up NEC- 4 month follow up. Off SSA since August, d/t reaction. Had been receiving locally. Concerned with elevated Chrom A and Gastrin levels. Local oncologist concerned that she is not on any treatment for the elevated Chrom A. Other Following with pulkim benedict team due to SOB. Had sleep study completed this past week. Pain Back and hip pain se brittany and constant for the past couple of months. Pain is at rest and severe with activity, pain is bad enough to tears at times. Using a cane to walk now. Diarrhea Has diarrhea every d ay 3-4 times per day. Taking immodium. Reason Comments Follow-up Due for US for thyro id nodules. No difficulty swallowing. Occasional hoarseness. 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 Other Review 5-HIAA lab wo rk Wearing a cpap at nightime now due to sleep apnea. Diarrhea Daily anywhere from 3-5 episodes. Takes imodium daily. Reason Onset Date Comments Medication Management 04/29/2024 Reason Onset Date Comments Medication Request 05/23/2024 Reason Onset Date Comments Insurance 06/14/2024 Reason Comments Infusion Visit C1 lutathera Reason Comments Follow-up S/p PRRT #1 on Would like to go over SE of PRRT again Alopecia Reports hair loss af ter her first tx. Would like rx for a wig to turn in to her insurance Reason Comments Follow-up S/p PRRT C2 on 09/20. Reports hair loss with last PRRT treatment Reason Onset Date Comments Lab Review 11/12/2024 Reason Onset Date Comments Medication Request 11/21/2024 Source Comments (unrecognize d section and content) In the event this informatio n is protected by the Federal Confidentiality of Alcohol and Drug Abuse Patient Records regulations: The Federal rules restrict any use of the information to criminally investigate or prosecute any alcohol or drug abuse patient.[facility] the event this information is protected by the Federal Confidentiality of Alcohol and Drug Abuse Patient Records regulations: The Federal rules restrict any use of the information to criminally investigate or prosecute any alcohol or drug abuse patient.[facility] the event this information is protected by the Federal Confidentiality of Alcohol and Drug Abuse Patient Records regulations: The Federal rules restrict any use of the information to criminally investigate or prosecute any alcohol or drug abuse patient.[facility] the event this information is protected by the Federal Confidentiality of Alcohol and Drug Abuse Patient Records regulations: The Federal rules restrict any use of the information to criminally investigate or prosecute any alcohol or drug abuse patient.[facility] the event this information is protected by the Federal Confidentiality of Alcohol and Drug Abuse Patient Records regulations: The Federal rules restrict any use of the information to criminally investigate or prosecute any alcohol or drug abuse patient.[facility] the event this information is protected by the Federal Confidentiality of Alcohol and Drug Abuse Patient Records regulations: The Federal rules restrict any use of the information to criminally investigate or prosecute any alcohol or drug abuse patient.[facility] the event this information is protected by the Federal Confidentiality of Alcohol and Drug Abuse Patient Records regulations: The Federal rules restrict any use of the information to criminally investigate or prosecute any alcohol or drug abuse patient.[facility] the event this information is protected by the Federal Confidentiality of Alcohol and Drug Abuse Patient Records regulations: The Federal rules restrict any use of the information to criminally investigate or prosecute any alcohol or drug abuse patient.[facility] INFORMATION SOURCE (unrecogn ized section and content) DATE CREATED AUTHOR 04/22/2023 [facility] DATE CREATED AUTHOR AUTHOR'S KADE ATCASSY 08/11/2023 [facility] DATE CREATED AUTHOR AUTHOR'S ORGANIZ ATION 09/04/2023 [facility] DATE CREATED AUTHOR AUTHOR'S ORGANIZ ATION 12/14/2024 [facility] DATE CREATED AUTHOR AUTHOR'S ORGANIZ ATION 12/15/2024 [facility] FOR RECORDS PERTAINING TO PATIENTS WHO ARE OR HAVE BEEN ENROLLED IN A CHEMICAL DEPENDENCY/SUBSTANCEABUSE PROGRAM, SOME INFORMATION MAY BE OMITTED. This clinical summary was aggregated from multiple sources. Caution should be exercised in using it in the provision of clinical care. This summary normalizes information from multiple sources, and as a consequence, information in this document may materially change the coding, format and clinical context of patient data. In addition, data may be omitted in some cases. CLINICAL DECISIONS SHOULD BE BASED ON THE PRIMARY CLINICAL RECORDS. [facility]. provides no warranty or guarantee of the accuracy or completeness of information in this document.
[2025-02-06] MEDS: Pantoprazole Sodium 40 MG in 0.9% Normal Saline (100mL MB+) 100 ML 300 MG IV (16:51)
[2025-02-06 16:54] LABS: Hematocrit 28.1 % (37-47); Hemoglobin 10.1 g/dL (12.0-15.0); Immature Granulocytes Count 0.020 X10^3/uL (0.0-0.0); Mean Corp Hgb Conc 35.9 g/dL (32-36); Mean Corpuscular Volume 91.5 fL (81-99); Mean Platelet Vol. 9.4 fl (6.2-12.0); NRBC Flagged by Analyzer 0 % (0-5); POSITIVE COUNT YES; POSITIVE DIFFERENTIAL YES; Platelet Count 93 K/mm3 (150-450); RBC Distribution Width CV 13.8 % (11.6-14.6); RBC Distribution Width SD 45.5 fl (35.1-43.9); Red Blood Count 3.07 M/mm3 (4.2-5.4); White Blood Count 4.7 K/mm3 (4.4-11.0)
[2025-02-06 16:58] LABS: Differential Indicated SCAN CRITERIA MET
[2025-02-06 17:08] LABS: Troponin T High Sensitivity 14 ng/L (<=14)
[2025-02-06 17:09] LABS: AST(SGOT) 22 U/L (<=31); Alanine Aminotransfer ALT/SGPT 11 U/L (<=34); Albumin, Serum 4.4 g/dL (3.4-4.8); Alkaline Phosphatase 127 U/L (35-104); Anion Gap 14 (7-18); BUN 12 mg/dL (4-19); BUN/Creat Ratio 13.2 RATIO (10-20); Bilirubin, Direct 0.31 mg/dL (0.00-0.30); Calcium,Total 9.8 mg/dL (7.6-11.0); Carbon Dioxide 25.9 mmol/L (20.0-29.0); Chloride 95 mmol/L (96-106); Estimated Creatinine Clearance 37.60 ml/min (50-250); Globulin 2.9 g/dL (2.2-4.2); Glucose 163 mg/dL (70-99); Lipase 19 U/L (13-75); Potassium 3.1 mmol/L (3.5-5.1)
[2025-02-06] MEDS: Potassium Chloride 10mEq/100mL 10 MEQ/100 ML IV.SOLN. 100 MEQ IV BOLUS (17:29)
[2025-02-06] MEDS: Mag /Aluminum/Simeth WCH UDC 30 ML ORAL.SUSP PO (17:29)
[2025-02-06] MEDS: Potassium Chloride Oral Tablet 10 MEQ PO (17:29)
[2025-02-06] MEDS: Lidocaine 2% Viscous15 ML UDC 15 ML PO (17:29)
[2025-02-06 17:30] VITALS: BP 164/64; PULSE 77; RESP 18; O2SAT 96
[2025-02-06 17:55] LABS: Magnesium 1.6 mg/dL (1.5-2.2)
[2025-02-06 18:00] VITALS: BP 166/55; PULSE 78; RESP 14; O2SAT 93
[2025-02-06 18:30] VITALS: BP 158/42; PULSE 79; RESP 18; O2SAT 91
[2025-02-06 19:00] VITALS: BP 152/80; PULSE 70; RESP 16; O2SAT 92
[2025-02-06 19:33] LABS: Troponin T High Sens 2 HR 14 ng/L (<=14)
[2025-02-06 20:24] VITALS: BP 163/58; PULSE 66; RESP 14; TEMP 36.8; O2SAT 96
== END 2025-02-06 20:29 | disposition home or self-care (01) ==
PROVIDERS: Emergency Provider Emergency Medicine; PCP Family Medicine; Visit Provider Emergency Medicine
DX: R07.89 Other chest pain (principal); I48.91 Unspecified atrial fibrillation; K29.70 Gastritis, unspecified, without bleeding; Z86.718 Personal history of other venous thrombosis and embolism; I10 Essential (primary) hypertension; E78.5 Hyperlipidemia, unspecified; E87.6 Hypokalemia; Z90.710 Acquired absence of both cervix and uterus; Z90.49 Acquired absence of other specified parts of digestive tract; Z79.01 Long term (current) use of anticoagulants; Z86.711 Personal history of pulmonary embolism; Z85.038 Personal history of other malignant neoplasm of large intestine; Z85.830 Personal history of malignant neoplasm of bone; Z85.118 Personal history of other malignant neoplasm of bronchus and lung; Z92.3 Personal history of irradiation; F32.A Depression, unspecified; Z79.899 Other long term (current) drug therapy
CPT/HCPCS: 71046; 80048; 80076; 83690; 83735; 84484; 85025; 93005; 96361; 96365; 99284; A4216